=== PATIENT | male | born 1950 | race Caucasian/White ===

== ENCOUNTER 2025-01-27 10:56 | Emergency (ER) | payer MEDICARE, SELFPAY ==
--- OUTSIDE RECORDS SUMMARY | 2025-01-12 16:42 | XMS_ITS | Encounter Summary ---
Author Organization [facility] [employer] [facility] tem Address [id number] [address] [place] [address] Care Team Providers Care Jack Tamp Operator Name Role Phone No Pcp, No Pcp Primary Care Provider Unavailabl e Reason for Visit * Reason Comments Fall Pt fell this morning around 11, pt couldn't get up and neighbors heard him banging and called squad * Auth/Cert Specialty Diagnoses / Procedures Referred By Contac t Referred To Contact Diagnoses Tachycardia Atrial fibrillation with rapid ventricular response (CMS-HCC) [facility] - Emergency [address] [place] [address] Phone: tel: fax: Referral ID Status Reason Start Date Expiration Date Visits Re quested Visits Authorized [id number] 1 1 Encounter Details Date Type Department Care Team (Latest Contact Info) Description 01/12/2025 4:42 PM EDT - 01/14/2025 1:59 PM EDT Hospital Encounter [facility] - Acute Care [address] [place] [id number] Aleks He MD [address] [place] [address] Ralph Tamayo MD [address], [address] [address] Atrial fibrillation with rapid ventricular response (CMS-HCC) (Primary Dx); Non-traumatic rhabdomyolysis; Contusion of face, initial encounter; Leukocytosis, unspecified type Discharge Disposition: Another Hospital Social History Tobacco Use Types Packs/Day Years Used Date Smoking Tobacco: Never Smokeless Tobacco: Never Alcohol Use Standard Drinks/Week Comments No 0 (1 standard drink = 0.6 oz pur e alcohol) [facility] Utilities Answer Date Recorded In the past 12 months has th e electric, gas, oil, or water company threatened to shut off services in your home? Patient unable to answer 01/14/2025 PRAPARE - Transportation Answer Date Re corded In the past 12 months, has l ack of transportation kept you from medical appointments or from getting medications? Patient unable to answer 01/14/2025 In the past 12 months, has l ack of transportation kept you from meetings, work, or from getting things needed for daily living? Patient unable to answer 01/14/2025 Housing Instability Answer Date Recorde d Are you worried or concerned that in the next two months you may not have stable housing that you own, rent or stay in as a part of a household? Patient unable to answer 01/14/2025 Childcare Answer Date Recorded Childcare Unknown 11/03/2018 Employment Answer Date Recorded Employment Unknown 11/03/2018 Hunger Screening Answer Date Recorded Within the past 12 months we worried whether our food would run out before we got money to buy more. Patient unable to answer 01/15/2025 Within the past 12 months th e food we bought just didn't last and we didn't have money to get more. Patient unable to answer 01/15/2025 Purpose - Life Answer Date Recorded Purpose and direction in life Unknown Sex and Gender Information Value Date Recorded Sex Assigned at Not on file Legal Sex Male 11:30 AM EDT Gender Identity Not on file Sexual Orientation Not on file documented as of this encounter Last Filed Vital Signs Vital Sign Reading Time Taken Comments Blood Pressure 101/54 01/14/2025 7:10 AM EDT Pulse 87 01/14/2025 1:59 PM EDT Temperature 36.1 C (97 F) 01/14/2025 12:58 PM EDT Respiratory Rate 18 01/14/2025 1:59 PM EDT Oxygen Saturation 96% 01/14/2025 1:59 PM EDT Inhaled Oxygen Concentration - - Weight 83.2 kg (183 lb 6.8 oz) 01/14/2025 5:13 A M EDT Height 177.8 cm (5' 10 ) 01/13/2025 5:00 AM EDT Body Mass Index 26.32 01/13/2025 5:00 AM EDT documented in this encounter Discharge Summaries * Ralph Tamayo MD - 01/14/2025 12:25 PM EDT Images from the original note were not included. [facility] - AC[facility]ARE [address] [facility] [id number] Hospital Medicine Discharge Summary Patient: Paul Guerrero Date of : 1950 Room: [facility] Encounter date: 01/14/25 Hospital Day: 3 DATE OF ADMISSION: 01/12/2025 DATE OF DISCHARGE:01/14/2025 DISCHARGE DIAGNOSES Principal Problem: Atrial fibrillation with rapid ventricular response (CMS-HCC) Active Problems: Stroke (CMS-HCC) Cerebral infarction ([facility]-HCC) Cardiomyopathy, nonischemic ([facility] CONSULTANTS General surgery PCP: NO PCP, NO PCP PROCEDURES none HOSPITAL COURSE SUMMARY Paul Guerrero is a 74 y.o. male who presents following a fall. Pt noted he had recently been sick and feeling fatigued and weak for 2 days. When he got out of bed he said he had a hard time walking and fell. Stated he hurt his knees and his face. Pt has history of a.fib, CHF, CVA. CT brain- negative. CXR negative. EKG- a.fib with rvr. Cardiology consulted. Started on cardizem gtt. Labwork showing- wbc 22.7, ddimer 259, creatinine 1.97, BUN 41, AST, 105, ALT 43, bnp 352, CPK 3,798, troponin 39, 41. Lactate 2.4. Admitted for a.fib with rvr. Atrial fibrillation with RVR Cardiomyopathy, nonischemic Hx stroke EKG- showing rate of 202 rated improved to 90s currently Started on cardizem gtt- wean as able- off now Lopressor stopped- on levo currently Cardiology following TSH -WNL Echo CXR negative On eliquis -heldsurgery Leukocytosis Concern for sepsis Check UA CXR negative Procal 5.1 Downtrending Rocephin 2g daily -changed to zosyn Repeat BC Lactate 2.8 Fall Traumatic Rhabdomyolysis CK 3,798>>2,276 Myoglobin 2,[address] brain negative Scrotal swelling General surgery consulted Likely hernia, per surgery will need cardiac clearance prior to surgery US ordered -No testicular mass or torsion, limited assessment right testicle due to overlapping structures. Scrotal wall edema and possible herniated bowel into the scrotal sac, consider CT pelvis. Pt was taken to OR emergently per Dr. Ramirez for open left inguinal hernia repair, bowel/colon resection, colostomy, mesh repair - post op pt was vented, did have traumatic catheter insertion. Will need urology. Transfer to [facility] for urology and higher level of care. On levo /propofol currently Check lactate, cbc/cmp now Transaminitis Stable, monitor daily Improving Acute kidney injury Creatinine 1.97>>1.77>>1.8 IVF Likely prerenal d/t hypotension Check UA Renal US unremarkable Hypokalemia Hypomagnesemia Replace per sliding scale Discharge Day Progress Note 01/14/25 No overnight events and remains hemodynamically stable. Review of Systems Reason unable to perform ROS: sedated. BP 101/54 Pulse 92 Temp 36.8 ??C (98.2 ??F) (Oral) Resp (!) 8 Ht 177.8 cm (5' 10 ) Wt 83.2 kg (183 lb 6.8 oz) SpO2 98% BMI 26.32 kg/m?? Temp: [36.5 ??C (97.7 ??F)-38.2 ??C (100.8 ??F)] 36.8 ??C (98.2 ??F) Pulse: [87-141] 92 Resp: [8-30] 8 BP: (92-116)/(50-63) 101/54 FiO2 (%): [21 %-28 %] 28 % SpO2: [84 %-98 %] 98 % O2 Device: Ambu O2 Flow Rate (L/min): [0 L/min-3 L/min] 2 L/min Intake/Output Summary (Last 24 hours) at 01/14/2025 1225 Last data filed at 01/14/2025 1115 Gross per 24 hour Intake 4845.9 ml Output 377 ml Net 4468.9 ml Physical Exam Vitals and nursing note reviewed. Constitutional: General: He is not in acute distress. Appearance: He is well-developed. HENT: Head: Normocephalic. Right Ear: External ear normal. Left Ear: External ear normal. Nose: Nose normal. Eyes: Conjunctiva/sclera: Conjunctivae normal. Pupils: Pupils are equal, round, and reactive to light. Cardiovascular: Rate and Rhythm: Normal rate and regular rhythm. Heart sounds: Normal heart sounds. No murmur heard. Pulmonary: Effort: Pulmonary effort is normal. Breath sounds: Normal breath sounds. No wheezing. Comments: Vented Abdominal: General: Bowel sounds are normal. Palpations: Abdomen is soft. There is no mass. Tenderness: There is abdominal tenderness. Comments: Post op - incision , dressing in place , ostomy Genitourinary: Comments: [place] Musculoskeletal: General: Normal range of motion. Cervical back: Normal range of motion. Lymphadenopathy: Cervical: No cervical adenopathy. Skin: General: Skin is warm and dry. Findings: No rash. Neurological: Mental Status: He is alert. Cranial Nerves: No cranial nerve deficit. Coordination: Coordination normal. Psychiatric: Behavior: Behavior normal. Code Status: No Order Labs Recent Results (from the past 48 hours) CBC auto differential Collection Time: 01/12/25 5:11 PM Result Value Ref Range WBC 22.7 (H) 4 - 11 x10E9/L RBC Count 4.72 4.1 - 5.7 X10E12/L Hemoglobin 14.6 13 - 17 g/dL Hematocrit 43.9 39 - 50 % MCV 93 80 - 100 fL MCH 31.0 27 - 34 pg MCHC 33.3 32 - 36 g/dL RDW 13.9 11.5 - 15 % Platelet Count 208 150 - 450 X10E9/L MPV 11.3 7 - 12 fL Bands % 2 % Neutrophils % 90 % Lymphocytes % 2 % Monocytes % 6 % Neutrophils Absolute (M) 20.8 (H) 1.5 - 6.6 10*3/uL Lymphocytes Absolute 0.5 (L) 1.0 - 3.5 10*3/uL Monocytes Absolute 1.4 (H) 0.0 - 0.9 10*3/uL RBC Morphology Normal Differential Type MANUAL DIFFERENTIAL Protime & INR Collection Time: 01/12/25 5:11 PM Result Value Ref Range PROTIME 24.7 (H) 9.8 - 13.2 sec INR 2.1 (H) 0.9 - 1.2 APTT Collection Time: 01/12/25 5:11 PM Result Value Ref Range APTT 34 26 - 37 sec B-type natriuretic peptide Collection Time: 01/12/25 5:11 PM Result Value Ref Range BNP 352 (H) <=100 pg/mL Comprehensive metabolic panel Collection Time: 01/12/25 5:11 PM Result Value Ref Range SODIUM 134 134 - 146 mmol/L POTASSIUM 3.5 3.5 - 5.0 mmol/L CHLORIDE 95 (L) 98 - 109 mmol/L CARBON DIOXIDE 25 22 - 32 mmol/L ANION GAP 14 5 - 15 mmol/L BLOOD UREA NITROGEN 41 (H) 5 - 27 mg/dL CREATININE 1.97 (H) 0.70 - 1.20 mg/dL GLUCOSE 125 (H) 65 - 99 mg/dL CALCIUM 9.0 8.5 - 10.5 mg/dL TOTAL PROTEIN 7.5 6.0 - 8.0 g/dL ALBUMIN 3.5 3.2 - 5.3 g/dL ALKALINE PHOSPHATASE 78 39 - 130 U/L AST 105 (H) <=41 U/L ALT 43 (H) <=40 U/L BILIRUBIN,TOTAL 2.2 (H) 0.3 - 1.2 mg/dL EGFR Non-Race Dependent 35 (L) >=60 ml/min/1.73sq.m D-Dimer Collection Time: 01/12/25 5:11 PM Result Value Ref Range D DIMER 259 (H) 1 - 255 ug/mL Magnesium Collection Time: 01/12/25 5:11 PM Result Value Ref Range MAGNESIUM 1.8 1.8 - 2.6 mg/dL Troponin I, High Sensitivity Collection Time: 01/12/25 5:11 PM Narrative The following orders were created for panel order Troponin I, High Sensitivity. Procedure Abnormality Status --------- ------ Troponin I, High Sensiti...[[id number]] Abnormal Final result Troponin I, High Sensiti...[[id number]] Abnormal Final result Please view results for these tests on the individual orders. CK Total Collection Time: 01/12/25 5:11 PM Result Value Ref Range CPK 3,798 (H) 24 - 195 U/L Troponin I, High Sensitivity 0 Hour Collection Time: 01/12/25 5:11 PM Result Value Ref Range TROPONIN I, HIGH SENSITIVITY 39 (H) <21 ng/L Procalcitonin Collection Time: 01/12/25 5:11 PM Result Value Ref Range PROCALCITONIN 5.10 (H) <0.05 ng/mL Narrative <0.50 ng/mL - Low risk of severe sepsis and/or septic shock. <2.00 ng/mL - Recommend retesting within 6-24 hours. >2.00 ng/mL - High risk of sepsis and/or septic shock. SARS/FLU A+B/RSV by NAAT/Molecular (M4RT Collection Tube) Collection Time: 01/12/25 5:12 PM Result Value Ref Range FLU A PCR Negative Negative FLU B PCR Negative Negative RSV BY PCR Negative Negative SARS COV 2 BY PCR Not Detected Not Detected Narrative The Xpert Xpress SARS-CoV-2/Flu/RSV Plus test is a rapid, multiplexed real-time RT-PCR test intended for the simultaneous qualitative detection and differentiation of SARS-CoV-2, influenza A, influenza B and respiratory syncytial virus (RSV) viral RNA from individuals suspected of respiratory viral infection consistent with COVID-19 by Their healthcare provider. This test has not been validated in asymptomatic patients. The Xpert Xpress SARS-CoV-2 test is intended for use by qualified and trained operators who are performing tests using either [employer] DX or [employer] Stats systems and islimited to laboratories that meet the CLIA requirements to perform high and moderate complexity tests. The Xpert Xpress SARS-CoV-2/Flu/RSV Plus is only for use under the Food and Drug Administration's Emergency Use Authorization. Results are for the simultaneous detection and differentiation of SARS-CoV-2, influenza A, influenza B and RSV nucleic acids in clinical specimens. SARS-CoV-2, influenzaA, influenza B and RSV RNA identified by this test are generally detectable in upper respiratory samples during the acute phase of infection. Positive results are Indicative of the presence of the identified virus, but do not rule out bacterial infection or co-infection with other pathogens not detected by this test. Clinical correlation with patient history and other diagnostic information is necessary to determine patient infection status. The agent detected may not be the definite cause of disease. Negative results do not preclude SARS-CoV-2, influenza A, influenza B and RSV infection and should not be used as the sole basis for treatment or other patient management decisions. Negative results must be combined with clinical observations, patient history and epidemiological information.An Invalid result may occur with specimen-associated inhibition unable to be resolved with specimenrepeat. Fact Sheet for Healthcare Providers: https://www.fda.gov/media/438833/download Fact Sheet for Patients: https://www.fda.gov/media/632493/download Lactate w/ Reflex Collection Time: 01/12/25 5:23 PM Result Value Ref Range LACTATE W/REFLEX 2.4 (H) 0.4 - 2.0 mmol/L Blood culture Collection Time: 01/12/25 5:23 PM Specimen: Blood, Venous Result Value Ref Range CULTURE RESULTS NO GROWTH AT 36 HOURS Blood culture Collection Time: 01/12/25 6:29 PM Specimen: Blood, Venous Result Value Ref Range CULTURE RESULTS NO GROWTH AT 36 HOURS Troponin I, High Sensitivity 1 Hour Collection Time: 01/12/25 6:29 PM Result Value Ref Range TROPONIN I, HIGH SENSITIVITY 41 (H) <21 ng/L Narrative Elevations of hs-Troponin may be due to causes other than myocardial ischemia. Recommend serial hs-Troponin testing be performed. For the initial evaluation and management of chest pain patients, refer to the algorithms linked below. Emergency Patient: [email or web address] [email or web address]: [email or web address] Lactate Collection Time: 01/12/25 8:50 PM Result Value Ref Range LACTATE 1.7 0.4 - 2.0 mmol/L Comprehensive metabolic panel Collection Time: 01/13/25 4:37 AM Result Value Ref Range SODIUM 135 134 - 146 mmol/L POTASSIUM 3.6 3.5 - 5.0 mmol/L CHLORIDE 99 98 - 109 mmol/L CARBON DIOXIDE 24 22 - 32 mmol/L ANION GAP 12 5 - 15 mmol/L BLOOD UREA NITROGEN 40 (H) 5 - 27 mg/dL CREATININE 1.77 (H) 0.70 - 1.20 mg/dL GLUCOSE 129 (H) 65 - 99 mg/dL CALCIUM 8.1 (L) 8.5 - 10.5 mg/dL TOTAL PROTEIN 6.2 6.0 - 8.0 g/dL ALBUMIN 2.8 (L) 3.2 - 5.3 g/dL ALKALINE PHOSPHATASE 66 39 - 130 U/L AST 110 (H) <=41 U/L ALT 46 (H) <=40 U/L BILIRUBIN,TOTAL 1.5 (H) 0.3 - 1.2 mg/dL EGFR Non-Race Dependent 40 (L) >=60 ml/min/1.73sq.m Magnesium Collection Time: 01/13/25 4:37 AM Result Value Ref Range MAGNESIUM 1.6 (L) 1.8 - 2.6 mg/dL CBC auto differential Collection Time: 01/13/25 4:37 AM Result Value Ref Range WBC 17.3 (H) 4 - 11 x10E9/L RBC Count 3.99 (L) 4.1 - 5.7 X10E12/L Hemoglobin 12.5 (L) 13 - 17 g/dL Hematocrit 37.0 (L) 39 - 50 % MCV 93 80 - 100 fL MCH 31.4 27 - 34 pg MCHC 33.9 32 - 36 g/dL RDW 13.6 11.5 - 15 % Platelet Count 211 150 - 450 X10E9/L MPV 10.3 7 - 12 fL Neutrophils % 91.3 % Lymphocytes % 1.9 % Monocytes % 6.5 % Eosinophils % 0.0 % Basophils % 0.3 % Neutrophils Absolute (A) 15.8 (H) 1.5 - 6.6 10*3/uL Lymphocytes Absolute 0.3 (L) 1.0 - 3.5 10*3/uL Monocytes Absolute 1.1 (H) 0.0 - 0.9 10*3/uL Eosinophils Absolute 0.0 0.0 - 0.4 10*3/uL Basophils Absolute 0.1 0.0 - 0.2 10*3/uL Differential Type AUTOMATED DIFFERENTIAL CK Total Collection Time: 01/13/25 4:37 AM Result Value Ref Range CPK 2,276 (H) 24 - 195 U/L Myoglobin, serum Collection Time: 01/13/25 4:37 AM Result Value Ref Range SERUM MYOGLOBIN 2,139.7 (H) 17.4 - 105.7 ng/mL Thyroid profile includes TSH FT4 Collection Time: 01/13/25 4:37 AM Result Value Ref Range FREE T4 1.51 0.61 - 1.60 ng/dL TSH 0.59 0.49 - 4.67 uIU/mL Extra Urine Collection Time: 01/13/25 6:55 AM Specimen: Urine, Clean Catch Midstream Result Value Ref Range Extra Tube Auto Resulted Extra Urine Culture Collection Time: 01/13/25 6:55 AM Specimen: Urine, Clean Catch Midstream Result Value Ref Range Extra Tube Auto Resulted Extra Urine [place] Collection Time: 01/13/25 6:55 AM Specimen: Urine, Clean Catch Midstream Result Value Ref Range Extra Tube Auto Resulted Urinalysis Collection Time: 01/13/25 6:55 AM Specimen: Urine, Clean Catch Midstream Result Value Ref Range COLOR Yellow Yellow TURBIDITY Cloudy (A) Clear SPECIFIC GRAVITY 1.025 1.003 - 1.035 NITRITE Negative Negative PH,URINE 6.0 5.0 - 8.5 LEUKOCYTE ESTERASE Negative Negative PROTEIN 30 mg/dL (A) Negative KETONES (URINE) Negative Negative UROBILINOGEN 0.2 eu/dL 0.2 eu/dL, 1.0 eu/dL BILIRUBIN (URINE) Negative Negative BLOOD/HGB Large (A) Negative AMORPHOUS SEDIMENT Present (A) None COARSE GRANULAR CAST 2 (H) <=0 MUCOUS Present (A) None R.B.CELLS 3 0 - 5 W.B.CELLS 4 0 - 5 GLUCOSE (URINE) Negative Negative, 250 mg/dL Extra Tubes Collection Time: 01/13/25 1:31 PM Narrative The following orders were created for panel order Extra Tubes. Procedure Abnormality Status --------- ------ SST TOP[[id number]] Final result Please view results for these tests on the individual orders. SST TOP Collection Time: 01/13/25 1:31 PM Result Value Ref Range Extra Tube Auto Resulted Potassium Collection Time: 01/13/25 1:32 PM Result Value Ref Range POTASSIUM 3.9 3.5 - 5.0 mmol/L Magnesium Collection Time: 01/13/25 1:32 PM Result Value Ref Range MAGNESIUM 3.0 (H) 1.8 - 2.6 mg/dL Lactate w/ Reflex Collection Time: 01/13/25 1:32 PM Result Value Ref Range LACTATE W/REFLEX 2.8 (H) 0.4 - 2.0 mmol/L Lactate Collection Time: 01/13/25 5:02 PM Result Value Ref Range LACTATE 1.7 0.4 - 2.0 mmol/L Comprehensive metabolic panel Collection Time: 01/14/25 4:25 AM Result Value Ref Range SODIUM 132 (L) 134 - 146 mmol/L POTASSIUM 4.5 3.5 - 5.0 mmol/L CHLORIDE 96 (L) 98 - 109 mmol/L CARBON DIOXIDE 23 22 - 32 mmol/L ANION GAP 13 5 - 15 mmol/L BLOOD UREA NITROGEN 43 (H) 5 - 27 mg/dL CREATININE 1.80 (H) 0.70 - 1.20 mg/dL GLUCOSE 115 (H) 65 - 99 mg/dL CALCIUM 8.8 8.5 - 10.5 mg/dL TOTAL PROTEIN 6.9 6.0 - 8.0 g/dL ALBUMIN 2.9 (L) 3.2 - 5.3 g/dL ALKALINE PHOSPHATASE 84 39 - 130 U/L AST 88 (H) <=41 U/L ALT 59 (H) <=40 U/L BILIRUBIN,TOTAL 0.7 0.3 - 1.2 mg/dL EGFR Non-Race Dependent 39 (L) >=60 ml/min/1.73sq.m Magnesium Collection Time: 01/14/25 4:25 AM Result Value Ref Range MAGNESIUM 2.6 1.8 - 2.6 mg/dL CBC auto differential Collection Time: 01/14/25 4:25 AM Result Value Ref Range WBC 32.8 (H) 4 - 11 x10E9/L RBC Count 4.23 4.1 - 5.7 X10E12/L Hemoglobin 13.1 13 - 17 g/dL Hematocrit 40.0 39 - 50 % MCV 95 80 - 100 fL MCH 30.9 27 - 34 pg MCHC 32.7 32 - 36 g/dL RDW 13.9 11.5 - 15 % Platelet Count 331 150 - 450 X10E9/L MPV 9.5 7 - 12 fL Bands % 14 % Neutrophils % 82 % Lymphocytes % 1 % Monocytes % 3 % Neutrophils Absolute (M) 31.5 (H) 1.5 - 6.6 10*3/uL Lymphocytes Absolute 0.3 (L) 1.0 - 3.5 10*3/uL Monocytes Absolute 1.0 (H) 0.0 - 0.9 10*3/uL RBC Morphology Reviewed Differential Type MANUAL DIFFERENTIAL Type and screen (Pre-op) Collection Time: 01/14/25 8:54 AM Result Value Ref Range ABO A RH Positive Antibody Screen Negative Blood Gas, Arterial Collection Time: 01/14/25 10:38 AM Result Value Ref Range Sample type ARTERIAL pH, Arterial 7.227 (L) 7.350 - 7.450 pCO2, Arterial 58.4 (H) 35.0 - 45.0 mmHg PO2, Arterial 469 (H) 80 - 100 mmHg Base, Deficit -4.0 (L) 0.0 - 2.0 mmol/L HCO3, Arterial 24.3 22.0 - 26.0 mmol/L %O2 Saturation, Arterial 100.0 >90.0 % Temo's test N/A SPO2 469 % Sample site N/A Source Of Oxygen Vent Radiology Echo complete W/O contrast Result Date: 01/14/2025 Narrative: Left Ventricle: Left ventricle appears normal in size. There is mild asymmetric increased wall thickness/hypertrophy. Systolic function is normal with an ejection fraction of 55-60%. The quantitative EF by 2D Mitchell biplane is 61%. No obvious regional wall motion abnormalities. Unable to assess diastolic function due to atrial fibrillation/flutter. Right Ventricle: Right ventricular size appears normal. The right ventricular basal diameter is 36.0 mm. Normal systolic excursion velocity by TDI (>9.5 cm/s). Tricuspid Valve: There is moderate regurgitation. There is no evidence oftricuspid valve stenosis. There is moderate pulmonary hypertension. Mitral Valve: The leaflets are moderately thickened. There is mild annular calcification. There is moderate regurgitation with a centrally directed jet. There is no evidence of mitral valve stenosis. Ultrasound retroperitoneal complete Result Date: 01/13/2025 Narrative: US RETROPERITONEAL COMPLETE HISTORY: Acute kidney injury COMPARISON: 09/05/2012 TECHNIQUE: Grayscale and color Doppler sonographic images of the urinary bladder and bilateral kidneys. FINDINGS: Right kidney: * 10.7 x 5.2 x 5.1 cm * Cortex: 0.9 cm. Normal echogenicity. * No hydronephrosis,mass, or calculi. Left kidney: * 9.3 x 5.4 x 5.0 cm * Cortex: 0.8 cm. Normal echogenicity. * No hydronephrosis, mass, or calculi. The urinary bladder is decompressed and incompletely evaluated. No prostatomegaly. IMPRESSION: Unremarkable ultrasound of the kidneys and urinary bladder. [id number] Finalized by Russell Brantley MD on 01/13/2025 3:08 PM Ultrasound scrotum Result Date: 01/13/2025 Narrative: CLINICAL INFORMATION: testicular swelling. COMPARISON: None. PROCEDURE: Routine testicular ultrasound was obtained utilizing real-time grayscale and color-flow Doppler imaging. Duplex spectral Doppler waveforms obtained and reviewed. FINDINGS: Scrotal wall edema. The right testicle measures 3.2 x 2.7 x 1.3 cm. The left testicle measures 3.9 x 2.1 x 3.7 cm. No definite testicular mass. Tubular ectasia right rete testes. Small left hydrocele. Duplex spectral Doppler documents arterial and venous spectral waveforms within the major arterial inflow and venous outflow of both testicles.No definite torsion. There appears to be some bowel content in the scrotum. IMPRESSION: * No testicu lar mass or torsion, limited assessment right testicle due to overlapping structures. * Scrotal wall edema and possible herniated bowel into the scrotal sac, consider CT pelvis. Finalized by Jeb Luciano MD on 01/13/2025 12:45 PM X-ray chest 1 view Result Date: 01/13/2025 Narrative: Portable single view chest dated 01/13/2025 at 11:34 AM INDICATION: Shortness of breath. FINDINGS: Comparison is 01/12/2025. Compromised due to portable technique. Emphysematous changes. Nodule in the left costophrenic angle is unchanged from multiple prior examination consistent with benign etiology. No edema or effusion. No pneumothorax. IMPRESSION: 1. Given the limitations of portabletechnique, no acute cardiopulmonary abnormality seen. 2. If symptoms persist consider PA and lateral chest in the radiology department. Finalized by Jose Luis Asif MD on 511:48 AM X-ray chest 1 view Result Date: 01/12/2025 Narrative: Portable chest: HISTORY: Cough. Single view of the chest was obtained. Cardiac and mediastinal contours are within normal limits. Lungs are clear. There is no vascular congestion, effusion, or pneumothorax. Osseous structures appear intact. IMPRESSION: No acute findings. Finalized by Bryon Boucher MD on 01/12/2025 7:[address] brain without contrast Result Date: 01/12/2025 Narrative: CT BRAIN WO CONT: 01/12/2025 6:02 PM Clinical: Head injury. On anticoagulation. EXAM: NONCONTRAST BRAIN CT Comparison: CT brain 04/16/2019 Procedure: Multi-detector CT performed through thebrain without IV contrast. Automatic exposure control utilized. All CT scans at this facility use dose modulation, iterative reconstruction, and/or weight based dosing when appropriate to reduce radiation dose to as low as reasonably achievable. Findings: There is no intracranial hemorrhage, extra-axial fluid collection, mass effect, midline shift, or hydrocephalus. Patent basal cisterns. MRI is more sensitive for evaluation of acute ischemia and subtle parenchymal abnormalities. IMPRESSION: * No acute intracranial abnormality by CT. Stable exam. Finalized by Pasha Young MD on 01/12/2025 6:08 PM DISCHARGE INSTRUCTION Disposition: Another Hospital Condition: Serious Activity: activity as tolerated Diet: Adult nutrition supplements Adult diet Regular Texture; Cardiac Discharge Medications: Medication List ASK your doctor about these medications Instructions Last Dose Given Next Dose Due apixaban 5 mg tablet Commonly known as: ELIQUIS Take 1 tablet (5 mg total) by mouth in the morning and 1 tablet (5 mg total) before bedtime. metoprolol tartrate 50 mg tablet Commonly known as: LOPRESSOR Take 1 tablet (50 mg total) by mouth in the morning and 1 tablet (50 mg total) before bedtime. >30 minutes were spent on discharging this patient. PAT Blandon 01/14/2025 12:25 PM [facility] 7AM-7PM & 7PM-7AM: EpicChat or page through On-Call Finder. PAT Blandon 01/14/25 1253 Patient seen postop. Intubated and on vent. On levophed and iv fluids. Bp stable. Surgical history reviewed with gen surg. On iv rocephin and flagyl. Repeat blood c/s and labs ordered. Pulmonology consulted for vent management Traumatic marinelli insertion attempted . Gen surgery has already discussed with urology. No services available here . Patient transferred to [facility] icu Physician Attestation I, RALPH TAMAYO MD, personally performed a face to face diagnostic evaluation on this patient. I have reviewed the note authored by the advance practice provider including history, review of systems,physical examination,medical decision making and agree with the assessment and plan as written. I have seen and evaluated the patient, I have repeated the wood portions of the physical exam and concur with the CESARIO findings. I have reviewed all laboratory findings and imaging reports/films. I agree with the plan as noted. documented in this encounter Discharge Instructions * Appointments* Kumar Almazan - 01/13/2025 3:52 PM EDT YOUR SCHEDULED APPOINTMENTS Please make note of this in your schedule as to not miss or call to reschedule. Thank you! [facility] [address], [place] [address] P# Monday February 10, 2025 @ 9:45am Pt. should bring the following to appointment; Discharge paperwork Picture ID, Insurance card, co-pay, and all current medications in their bottles. Please provide a 24 hour notice for cancellation. Failure to do so will result in the practice declining to see pt. in the future. If you have insurance copay you must bring with you to the appointment. Please arrive about 15 minutes prior to appointment for check-in/registration. For NEW PATIENT APPOINTMENTS, please arrive 30 minutes early to complete new patient paperwork. For NEW patients, MD will not prescribe fdc pain medication. documented in this encounter Medications at Time of Discharge apixaban (ELIQUIS) 5 mg tablet Take 1 tablet (5 mg total) by mouth in the morning and 1 tablet (5 mg total) before bedtime. 180 tablet 2 06/03/2024 dilTIAZem CD (CARDIZEM CD) 180 mg 24 hr capsule Take 1 capsule (180 mg total) by mouth in the morning. 01/23/2025 metoprolol tartrate (LOPRESSOR) 50 mg tablet Take 1 tablet (50 mg total) by mouth in the morning and 1 tablet (50 mg total) before bedtime. 180 tablet 3 07/16/2024 micafungin 100 mg in sodium chloride 0.9 % 100 mL IVPB W/ADAPTER Infuse 100 mg into a venous catheter daily for 25 days. 1 each 01/22/2025 5 naloxone (NARCAN) 4 mg/actuation spray,non-aeroso l nasal spray Administer 1 spray (4 mg total) into alternating nostrils as needed for opioid reversal. 01/22/2025 piperacillin-hayder obactam 3.375 g in sodium chloride 0.9 % 50 mL IVPB W/ADAPTER Infuse 3.375 g into a venous catheter every 8 (eight) hours for 20 days. 1 each 01/21/2025 5 oxyCODONE (ROXICODONE) 10 MG tablet immediate release tabletIndication s:S/P partial resection of colon Take 1 tablet (10 mg total) by mouth every 4 (four) hours as needed for pain for up to 3 days. Max Daily Amount: 60 mg 3 tablet 01/22/2025 5 oxyCODONE (ROXICODONE) 10 MG tablet immediate release tabletIndication s:S/P partial resection of colon Take 1 tablet (10 mg total) by mouth every 4 (four) hours as needed for pain for up to 3 days. Max Daily Amount: 60 mg 3 tablet 01/22/2025 5 documented as of this encounter Progress Notes * Eleazar Meyer, [facility] - 01/14/2025 12:30 PM EDT [facility] Department of Pharmacy Pharmacist to Physician Communication The dose of piperacillin/tazobactam for intra-abdominal infection has been changed to 4.5g IV x 1 infused over 30 minutes followed by 3.375g IV every 8 hours infused over 4 hours starting 4 hours after the loading dose per the [facility] approved renal dosing guidelines, based on an estimated creatinine clearance is 37.7 mL/min (A) (by C-G formula based on SCr of 1.8 mg/dL (H)). Thank you, Eleazar Meyer RPH * Delmar Ramirez MD - 01/14/2025 8:44 AM EDT Images from the original note were not included. Subjective: Paul Guerrero is a 74 y.o. male No acute events overnight. Heart rate this morning however is in the 130s 140s. Remains in atrial fibrillation. Left groin and scrotum continues to be swollen. Denies pain unless it is touched. Has tenderness. WBC 42682. Low-grade fever yesterday. Denies abdominal pain Objective: Vitals: 01/14/25 0736 BP: Pulse: (!) 141 Resp: 22 Temp: SpO2: 97% Temp: [36.5 ??C (97.7 ??F)-38.2 ??C (100.8 ??F)] 36.8 ??C (98.2 ??F) Pulse: [87-153] 141 Resp: [21-33] 22 BP: (92-128)/(50-67) 101/54 FiO2 (%): [21 %-28 %] 28 % SpO2: [84 %-98 %] 97 % O2 Device: Nasal cannula O2 Flow Rate (L/min): [0 L/min-3 L/min] 2 L/min No Known Allergies Intake/Output last 3 shifts: I/O last 3 completed shifts: In: 5717.4 [P.O.:120; I.V.:2890.2; IV Piggyback:2707.1] Out: 1082 [Urine:1082] Intake/Output this shift: No intake/output data recorded. Dietary Orders (From admission, onward) Start Ordered 01/14/25 0614 Adult diet Regular Texture; Cardiac Diet effective now Question Answer Comment Diet Type: Regular Texture Other Modifiers: Cardiac 01/14/25 0613 01/13/25 1305 Adult nutrition supplements Continuous Question Answer Comment Diet Type or Consistency: Regular Texture Select Supplement: Standard House Supplement 4 oz Supplement Frequency: BID 01/13/25 1304 Physical Exam General Appearance: Awake, Alert & Oriented x3, No Acute Distress. Neck: Trachea Midline. Pulmonary: Unlabored breathing. Cardiac: Irregular Abdomen: Soft, non-tender, non-distended. Large left inguinal scrotal hernia, overlying skin edematous and discolored Extremity: No edema Skin: Dry. Non-icteric. No Rash. Eyes: Pupils Equal and Round, Non-icteric Laboratory Data: Lab Results Component Value Date WBC 32.8 (H) 01/14/2025 HGB 13.1 01/14/2025 HCT 40.0 01/14/2025 MCV 95 01/14/2025 PLT 331 01/14/2025 Lab Results Component Value Date GLU 115 (H) 01/14/2025 CALCIUM 8.8 01/14/2025 K 4.5 01/14/2025 CO2 23 01/14/2025 CL 96 (L) 01/14/2025 BUN 43 (H) 01/14/2025 CREATININE 1.80 (H) 01/14/2025 No results found for: AMYLASE No results found for: LIPASE Lab Results Component Value Date ALT 59 (H) 01/14/2025 AST 88 (H) 01/14/2025 ALKPHOS 84 01/14/2025 Lab Results Component Value Date INR 2.1 (H) 01/12/2025 INR 1.1 07/18/2016 INR 1.2 06/01/2016 PROTIME 24.7 (H) 01/12/2025 PROTIME 12.7 (H) 07/18/2016 PROTIME 13.4 (H) 06/01/2016 cefTRIAXone (ROCEPHIN) IV, 2,000 mg, intravenous, Q24H ipratropium, 0.5 mg, nebulization, Q4H While awake levalbuterol, 1.25 mg, nebulization, Q4H While awake metoprolol tartrate, 50 mg, oral, BID metroNIDAZOLE, 500 mg, intravenous, Q12H acetaminophen alum-mag hydroxide-simeth dextrose dextrose 5 % in water dextrose 50 % in water (D50W) glucagon (human recombinant) HYDROcodone-acetaminophen magnesium sulfate magnesium sulfate ondansetron potassium chloride OR potassium chloride OR potassium chloride IV (Adult) sennosides-docusate sodium sodium chloride Assessment: Paul Guerrero is a 74 y.o. male with left inguinal hernia, incarcerated, containing bowel. Unable to be reduced. Today, WBC went up to 32,000, noted to have low-grade fever yesterday. This isconcerning for evolution, possible bowel strangulation Atrial fibrillation with RVR Acute kidney injury secondary to traumatic rhabdomyolysis versus sepsis Recent fall History of stroke On Eliquis, last dose was yesterday morning Plan: OR emergently for open left inguinal hernia repair, possible exploratory laparotomy, possible bowel/colon resection, possible colostomy, possible mesh repair Patient is at increased risk of perioperative complications as cardiopulmonary complication, bleeding complication. The reasons for surgery, alternatives to surgery, and natural history of the disease without surgery were addressed with the patient. We discussed the potential risks and benefits of the surgery. I gave ample opportunity for the patient to ask questions which I answered to their apparent satisfaction. He seemed to understand and provided consent. * Fernando Patterson RPH - 01/14/2025 6:31 AM EDT [facility] Department of Pharmacy Pharmacist to Physician Communication The dose of metronidazole for intra-abdominal infection has been changed to 500 mg IV every 12 hours per the [facility] approved medical supplies shortage bulletin. Thank you, Fernando Patterson RPH [id number] * Kaylie Bruner RCP - 01/13/2025 7:39 PM EDT 01/13/251937 Vital Signs Pulse (!) 127 Heart Rate Source Monitor Resp (!) 26 Patient Position Semi-fowlers Respiratory Assessment Assessment Type Post-treatment Level of Consciousness Alert Respiratory Pattern Shallow;Tachypneic Chest Assessment Chest expansion symmetrical Bilateral Breath Sounds Increased aeration;Expiratory wheezes;Inspiratory wheezes;Diminished Location Specific No Inhalation Therapy Device (Patient did not wish to take any more of the breathing treatment at this time due to c/o nausea from neb treatment) * Kaylie Bruner RCP - 01/13/2025 7:28 PM EDT 01/13/251925 Vital Signs Pulse 121 Heart Rate Source Monitor Resp (!) 26 SpO2 91 % O2 Device Nasal cannula O2 Flow Rate (L/min) 3 L/min Patient Position Semi-fowlers Respiratory Assessment Assessment Type Pre-treatment Level of Consciousness Alert Respiratory Pattern Shallow;Tachypneic Chest Assessment Chest expansion symmetrical Bilateral Breath Sounds Diminished R Breath Sounds Diminished L Breath Sounds Diminished Location Specific No Inhalation Therapy Delivery Source Oxygen Device Nebulizer Duration (Minutes) 15 Position Semi Meyer's * JARAD Cameron - 01/13/2025 12:46 PM EDT NUTRITION ADULT INITIAL EVALUATION NUTRITION ASSESSMENT Reason To Be Seen: Nutritional trigger for weight loss [facility] Occurrences: Pt admitted with recent fall Admit Diagnosis: Patient Active Problem List Diagnosis Contracture of finger joint Stroke ([facility]) Paroxysmal atrial fibrillation ([facility]) Bluish skin discoloration Diverticulosis of colon Gastritis and duodenitis GI bleed Mesenteric artery stenosis Cerebral infarction ([facility]) Cardiomyopathy, nonischemic (CMS-HCC) Atrial fibrillation with rapid ventricular response (CMS-HCC) Past Medical History: Past Medical History: Diagnosis Date Acute renal failure (ARF) occured at time of GI bleed Atrial fibrillation ([facility]) Bluish skin discoloration CHF (congestive heart failure) ([facility] 2012 initial EF 15 % // last ECHO 55 % Cholecystitis Contracture of finger joint Patient had an accident on a ladder causing deformity and this eventually developed into a contracture. Patient elected not to have surgery. 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 / [facility] / Dr Bruce/ CTA Occult blood in stools abn fit test Peptic ulceration GI bleed Pneumonia Respiratory failure ([facility]) occured at time of GI bleed Stroke ([facility]) 06/2016 rx with TPA Past Surgical History: Past Surgical History: Procedure Laterality Date CARDIAC CATHETERIZATION COLONOSCOPY diverticulosis / lg ingunial hernia ESOPHAGOGASTRODUODENOSCOPY severe errosis gastritis and duodenitis TONSILLECTOMY Diet History: nursing reports pt is consuming some liquids at this time Allergies: No Known Allergies Nutrition Focused Physical Findings-- No evidence of muscle wasting/malnutrition. Need more wt hx to evaluated for overall wt loss otherwise wt hx is stable Wt Readings from Last 10 Encounters: 01/13/25 81.5 kg (179 lb 10.8 oz) 05/19/24 80.5 kg (177 lb 6.4 oz) 04/22/23 79.4 kg (175 lb) 04/23/22 78.3 kg (172 lb 9.6 oz) 03/30/21 77.3 kg (170 lb 6.4 oz) 12/24/19 76.7 kg (169 lb) 04/24/19 75.8 kg (167 lb) 04/16/19 75.3 kg (166 lb) 11/24/18 75.8 kg (167 lb) 11/25/17 75 kg (165 lb 6.4 oz) As per nutrition flow sheet- Skin: Skin Color: Ecchymosis (01/13/25122) Skin Temp: Warm, Dry (01/13/25122) Wound: Gastrointestinal: Abdomen Assessment: Soft, Nondistended (01/12/251922) GI Symptoms: None (01/12/251922) Edema: Labs: Results from last 3 days Lab Units 01/13/25 0437 01/12/25 1711 SODIUM mmol/L 135 134 POTASSIUM mmol/L 3.6 3.5 CHLORIDE mmol/L 99 95* CO2 mmol/L 24 25 BUN mg/dL 40* 41* CREATININE mg/dL 1.77* 1.97* CALCIUM mg/dL 8.1* 9.0 ALBUMIN g/dL 2.8* 3.5 ALK PHOS U/L 66 78 ALT U/L 46* 43* AST U/L 110* 105* Results from last 7 days Lab Units 01/13/25 0437 01/12/25 1711 GLUCOSE mg/dL 129* 125* Results from last 3 days Lab Units 01/13/25 0437 01/12/25 1711 MAGNESIUM mg/dL 1.6* 1.8 No data from last 3 days. Results from last 3 days Lab Units 01/13/25 0437 01/12/25 1711 WBC x10E9/L 17.3* 22.7* HEMOGLOBIN g/dL 12.5* 14.6 HEMATOCRIT % 37.0* 43.9 PLATELETS X10E9/L 211 208 MCV fL 93 93 No results found for: [id number] No results found for: FOLATE Lab Results Component Value Date IRON 7 (L) 09/04/2012 TIBC 274 09/04/2012 Lab Results Component Value Date IRONSAT 3 (L) 09/04/2012 Lab Results Component Value Date HGBA1C 6.3 (H) 09/04/2012 Lab Results Component Value Date CHOL 93 (L) 05/12/2024 Lab Results Component Value Date HDL 40 05/12/2024 LDL 87 12/02/2014 No results found for: LIPIDPROF No results found for: VIDHYDROX Medications/ Parenteral: Medications Prior to Admission Medication Sig Dispense Refill Last Dose/Taking apixaban (ELIQUIS) 5 mg tablet Take 1 tablet (5 mg total) by mouth in the morning and 1 tablet (5 mg total) before bedtime. 180 tablet 2 01/11/2025 metoprolol tartrate (LOPRESSOR) 50 mg tablet Take 1 tablet (50 mg total) by mouth in the morning and 1 tablet (50 mg total) before bedtime. 180 tablet 3 01/11/2025 Current Facility-Administered Medications Medication Dose Route Frequency Provider Last Rate Last Admin acetaminophen (TYLENOL EXTRA STRENGTH) tablet 500 mg 500 mg oral Q6H PRN Abed Ramadan, DUMP TRUCK OPERATOR-EDI ARCHITECT 500mg at 01/13/25 0628 alum-mag hydroxide-simeth (MAALOX) 200-200-20 mg/5 mL suspension 30 mL 30 mL oral PCHSP AbFAITH-DYLAN cefTRIAXone (ROCEPHIN) IVPB 2000 mg/50 mL in iso-osmotic dextrose (40 mg/mL premix) 2,000 mg intravenous Q24H Abed FAITH espinosa-DYLAN dextrose (GLUTOSE) 40 % gel 15 g 15 g oral PRN AbFAITH-DYLAN dextrose 5 % (D5W) infusion 100 mL/hr intravenous Continuous PRN AbFAITH-DYLAN dextrose 50 % in water (D50W) 50% solution 25 mL 25 mL intravenous PRN AbPAT dilTIAZem (CARDIZEM) infusion 125 mg/125 mL in sodium chloride 0.7% (1 mg/mL premix) 5-15 mg/hr intravenous Continuous Ralph Tamayo MD 15 mL/hr at 01/13/25 0552 15 mg/hr at 01/13/25 0552 glucagon HCL injection 1 mg 1 mg intramuscular PRN PAT HYDROcodone-acetaminophen (NORCO) 5-325 mg per tablet 1 tablet 1 tablet oral Q6H PRN PAT Blandon 1 tablet at 01/13/25 1139 ipratropium (ATROVENT) 0.02 % nebulizer solution 0.5 mg 0.5 mg nebulization Q4H While awake PAT Blandon levalbuterol (XOPENEX) nebulizer solution 1.25 mg 1.25 mg nebulization Q4H While awake PAT Blandon magnesium sulfate IVPB 2000 mg/50 mL in iso-osmotic water (40 mg/mL premix) 2,000 mg intravenous PRN AbFAITH espinosa-DYLAN magnesium sulfate IVPB 4000 mg/100 mL in iso-osmotic water (40 mg/mL premix) 4,000 mg intravenous PRN AbFAITH espinosa-EDI ARCHITECT Stopped at 01/13/25 1038 metoprolol tartrate (LOPRESSOR) tablet 50 mg 50 mg oral BID PATRICK Blandon CNP 50 mg at 01/13/25 0928 ondansetron (PF) (ZOFRAN) injection 4 mg 4 mg intravenous Q4H PRN Abed Ramadan, DUMP TRUCK OPERATOR-EDI ARCHITECT potassium chloride (KLOR-CON M 20) CR tablet 30-40 mEq 30-40 mEq oral PRN Abed Ramadan, DUMP TRUCK OPERATOR-EDI ARCHITECT 30mEq at 01/13/25 0628 Or potassium chloride (KAYCIEL) 20 mEq/15 mL solution 30-40 mEq 30-40 mEq oral PRN Abed Ramadan, DUMP TRUCK OPERATOR-EDI ARCHITECT Or potassium chloride IVPB 10 mEq/100 mL in water (0.1 mEq/mL premix) 10 mEq intravenous PRN Abed Ramadan, DUMP TRUCK OPERATOR-EDI ARCHITECT sennosides-docusate sodium (SENOKOT-S) 8.6-50 mg 1 tablet 1 tablet oral Q12H PRN Abed Ramadan, DUMP TRUCK OPERATOR-EDI ARCHITECT sodium chloride 0.9 % flush 3 mL 3 mL intravenous PRN Aleks He MD sodium chloride 0.9 % infusion 75 mL/hr intravenous Continuous Abed Ramadan, DUMP TRUCK OPERATOR-EDI ARCHITECT 75 mL/hr at 01/13/25 0552 Rate Verify at 01/13/25 0552 Anthropometrics: Ht Readings from Last 1 Encounters: 01/13/25 177.8 cm (5' 10 ) Wt Readings from Last 10 Encounters: 01/13/25 81.5 kg (179 lb 10.8 oz) 05/19/24 80.5 kg (177 lb 6.4 oz) 04/22/23 79.4 kg (175 lb) 04/23/22 78.3 kg (172 lb 9.6 oz) 03/30/21 77.3 kg (170 lb 6.4 oz) 12/24/19 76.7 kg (169 lb) 04/24/19 75.8 kg (167 lb) 04/16/19 75.3 kg (166 lb) 11/24/18 75.8 kg (167 lb) 11/25/17 75 kg (165 lb 6.4 oz) [place] Body Weight: 75 kg Percent [place] Body Weight: 109 % Body Mass Index: Body mass index is 25.78 kg/m??. BMI Category: Pre-obese (25.00- 29.99) Diet/ Nutrition Order Review: Dietary Orders (From admission, onward) Start Ordered 01/12/252009 Adult diet Regular Texture; Cardiac Diet effective now Question Answer Comment Diet Type: Regular Texture Other Modifiers: Cardiac 01/12/252008 Diet Intakes: 75 % [] 75-100% [x] 50-75% [x] 25-50% [] <25% [] NPO [] Unable to assess Intake/ Output Last 24 hrs: Intake/Output Summary (Last 24 hours) at 01/13/2025 1247 Last data filed at 01/13/2025 1121 Gross per 24 hour Intake 3371.46 ml Output 643 ml Net 2728.46 ml Oral Supplemental Intake/ Acceptance: just started [] 75-100% [] 50-75% [] 25-50% [] <25% [] NPO [] Unable to assess Malnutrition Status: Malnutrition Present: No NUTRITION DIAGNOSIS: No Diagnosis: No nutrition diagnosis at this time (NO 1.1) NUTRITION INTERVENTIONS: Meals & snacks: encourage meals and snacks Supplements (medical food, vitamin or mineral): will send BID ensure HP will providee 175 kcal/10 gprotein per serving. GOALS: Patient to meet calorie and protein needs NUTRITION MONITORING AND EVALUATION: Will monitor PO intakes,, Weights, Nutrition Related Labs, POC& Follow. [x] Progressing toward goal [] Not progressing [] Progress toward goal declining [] Goal achieved Viridiana Wiley RD.,LD. Clinical Dietitian [facility] [phone] 01/13/25 documented in this encounter H&P Notes * Ralph Tamayo MD - 01/13/2025 8:54 AM EDT Images from the original note were not included. [facility] [address] [id number] Hospital Medicine History & Physical Patient: Paul Guerrero Date of : 1950 Room: [facility] [place] PCP: NO PCP, NO PCP Admission date: 01/12/2025 4:42 PM Encounter date: 01/13/25 Hospital Day: 2 SUBJECTIVE Paul Guerrero is a 74 y.o. male who presents following a fall. Pt noted he had recently been sick and feeling fatigued and weak for 2 days. When he got out of bed he said he had a hard time walking and fell. Stated he hurt his knees and his face. Pt has history of a.fib, CHF, CVA. CT brain- negative. CXR negative. EKG- a.fib with rvr. Cardiology consulted. Started on cardizem gtt. Labwork showing- wbc 22.7, ddimer 259, creatinine 1.97, BUN 41, AST, 105, ALT 43, bnp 352, CPK 3,798, troponin 39, 41. Lactate 2.4. Admitted for a.fib with rvr. Allergies: Patient has no known allergies. Prior to Admission medications Medication Sig Start Date End Date Taking? Authorizing Provider apixaban (ELIQUIS) 5 mg tablet Take 1 tablet (5 mg total) by mouth in the morning and 1 tablet (5 mg total) before bedtime. 06/03/24 Yes PAT Sparks metoprolol tartrate (LOPRESSOR) 50 mg tablet Take 1 tablet (50 mg total) by mouth in the morning and 1 tablet (50 mg total) before bedtime. 07/16/24 Yes PAT Sparks Code Status: No Order Past Medical History: Patient has a past medical history of Acute renal failure (ARF), Atrial fibrillation [place] Bluish skin discoloration, CHF (congestive heart failure) ([facility] (2012), Cholecystitis, Contracture of finger joint, CVA (cerebral vascular accident) ([facility] Diverticulosis of colon, Dyspnea, Elevat ed LFTs, Gastritis and duodenitis, GI bleed, Hiatal hernia, Inguinal hernia, Mesenteric artery stenosis, Occult blood in stools, Peptic ulceration, Pneumonia, Respiratory failure ([facility]), and Stroke ([facility]) (06/2016). Past Surgical History: Patient has a past surgical history that includes Tonsillectomy; Cardiac catheterization; Colonoscopy; and Esophagogastroduodenoscopy. Family History: Patient's family history includes Heart attack (age of onset: 40) in his father; Heart disease in his father, sister, and sister; No Known Problems in his mother. Social History: Patient reports that he has never smoked. He has never used smokeless tobacco. He reports that he does not drink alcohol and does not use drugs. Review of Systems Constitutional: Negative for chills and fever. HENT: Negative for ear pain and sore throat. Eyes: Negative for pain and visual disturbance. Respiratory: Positive for shortness of breath. Negative for cough. Cardiovascular: Positive for palpitations. Negative for chest pain. Gastrointestinal: Negative for abdominal pain and vomiting. Genitourinary: Positive for scrotal swelling. Negative for dysuria and hematuria. Musculoskeletal: Negative for arthralgias and back pain. Skin: Negative for color change and rash. Neurological: Negative for seizures and syncope. All other systems reviewed and are negative. OBJECTIVE BP 117/53 Pulse (!) 123 Temp 37.1 ??C (98.7 ??F) (Oral) Resp (!) 31 Ht 177.8 cm (5' 10 ) Wt 81.5 kg (179 lb 10.8 oz) SpO2 95% BMI 25.78 kg/m?? Temp: [36.6 ??C (97.9 ??F)-37.1 ??C (98.7 ??F)] 37.1 ??C (98.7 ??F) Pulse: [93-204] 123 Resp: [17-33] 31 BP: (94-133)/(52-113) 117/53 SpO2: [89 %-98 %] 95 % O2 Device: None (Room air) O2 Flow Rate (L/min): [0 L/min] 0 L/min Intake/Output Summary (Last 24 hours) at 01/13/2025 0854 Last data filed at 01/13/2025 0552 Gross per 24 hour Intake 3371.46 ml Output 210 ml Net 3161.46 ml Physical Exam Constitutional: General: He is not in acute distress. Appearance: He is well-developed. HENT: Head: Normocephalic. Right Ear: External ear normal. Left Ear: External ear normal. Nose: Nose normal. Eyes: Conjunctiva/sclera: Conjunctivae normal. Pupils: Pupils are equal, round, and reactive to light. Cardiovascular: Rate and Rhythm: Tachycardia present. Rhythm irregular. Heart sounds: Normal heart sounds. No murmur heard. Pulmonary: Effort: Pulmonary effort is normal. Breath sounds: Normal breath sounds. No wheezing. Abdominal: General: Bowel sounds are normal. Palpations: Abdomen is soft. There is no mass. Tenderness: There is no abdominal tenderness. There is no guarding. Genitourinary: Comments: Scrotal swelling L>R. Tender. hernia Musculoskeletal: General: Normal range of motion. Cervical back: Normal range of motion. Right lower leg: No edema. Left lower leg: No edema. Lymphadenopathy: Cervical: No cervical adenopathy. Skin: General: Skin is warm and dry. Findings: No rash. Comments: Abrasion on face Neurological: General: No focal deficit present. Mental Status: He is alert and oriented to person, place, and time. Cranial Nerves: No cranial nerve deficit. Coordination: Coordination normal. Psychiatric: Behavior: Behavior normal. Medications Scheduled: cefTRIAXone (ROCEPHIN) IV, 2,000 mg, intravenous, Q24H Infusions: dextrose 5 % in water, 100 mL/hr diltiazem, 5-15 mg/hr, Last Rate: 15 mg/hr (01/13/25 0552) sodium chloride 0.9 %, 75 mL/hr, Last Rate: 75 mL/hr (01/13/25 0552) As Needed: acetaminophen alum-mag hydroxide-simeth dextrose dextrose 5 % in water dextrose 50 % in water (D50W) glucagon (human recombinant) magnesium sulfate magnesium sulfate ondansetron potassium chloride OR potassium chloride OR potassium chloride IV (Adult) sennosides-docusate sodium sodium chloride Allergies: Patient has no known allergies. Labs Recent Results (from the past 24 hours) CBC auto differential Collection Time: 01/12/25 5:11 PM Result Value Ref Range WBC 22.7 (H) 4 - 11 x10E9/L RBC Count 4.72 4.1 - 5.7 X10E12/L Hemoglobin 14.6 13 - 17 g/dL Hematocrit 43.9 39 - 50 % MCV 93 80 - 100 fL MCH 31.0 27 - 34 pg MCHC 33.3 32 - 36 g/dL RDW 13.9 11.5 - 15 % Platelet Count 208 150 - 450 X10E9/L MPV 11.3 7 - 12 fL Bands % 2 % Neutrophils % 90 % Lymphocytes % 2 % Monocytes % 6 % Neutrophils Absolute (M) 20.8 (H) 1.5 - 6.6 10*3/uL Lymphocytes Absolute 0.5 (L) 1.0 - 3.5 10*3/uL Monocytes Absolute 1.4 (H) 0.0 - 0.9 10*3/uL RBC Morphology Normal Differential Type MANUAL DIFFERENTIAL Protime & INR Collection Time: 01/12/25 5:11 PM Result Value Ref Range PROTIME 24.7 (H) 9.8 - 13.2 sec INR 2.1 (H) 0.9 - 1.2 APTT Collection Time: 01/12/25 5:11 PM Result Value Ref Range APTT 34 26 - 37 sec B-type natriuretic peptide Collection Time: 01/12/25 5:11 PM Result Value Ref Range BNP 352 (H) <=100 pg/mL Comprehensive metabolic panel Collection Time: 01/12/25 5:11 PM Result Value Ref Range SODIUM 134 134 - 146 mmol/L POTASSIUM 3.5 3.5 - 5.0 mmol/L CHLORIDE 95 (L) 98 - 109 mmol/L CARBON DIOXIDE 25 22 - 32 mmol/L ANION GAP 14 5 - 15 mmol/L BLOOD UREA NITROGEN 41 (H) 5 - 27 mg/dL CREATININE 1.97 (H) 0.70 - 1.20 mg/dL GLUCOSE 125 (H) 65 - 99 mg/dL CALCIUM 9.0 8.5 - 10.5 mg/dL TOTAL PROTEIN 7.5 6.0 - 8.0 g/dL ALBUMIN 3.5 3.2 - 5.3 g/dL ALKALINE PHOSPHATASE 78 39 - 130 U/L AST 105 (H) <=41 U/L ALT 43 (H) <=40 U/L BILIRUBIN,TOTAL 2.2 (H) 0.3 - 1.2 mg/dL EGFR Non-Race Dependent 35 (L) >=60 ml/min/1.73sq.m D-Dimer Collection Time: 01/12/25 5:11 PM Result Value Ref Range D DIMER 259 (H) 1 - 255 ug/mL Magnesium Collection Time: 01/12/25 5:11 PM Result Value Ref Range MAGNESIUM 1.8 1.8 - 2.6 mg/dL Troponin I, High Sensitivity Collection Time: 01/12/25 5:11 PM Narrative The following orders were created for panel order Troponin I, High Sensitivity. Procedure Abnormality Status --------- ------ Troponin I, High Sensiti...[[id number]] Abnormal Final result Troponin I, High Sensiti...[[id number]] Abnormal Final result Please view results for these tests on the individual orders. CK Total Collection Time: 01/12/25 5:11 PM Result Value Ref Range CPK 3,798 (H) 24 - 195 U/L Troponin I, High Sensitivity 0 Hour Collection Time: 01/12/25 5:11 PM Result Value Ref Range TROPONIN I, HIGH SENSITIVITY 39 (H) <21 ng/L Procalcitonin Collection Time: 01/12/25 5:11 PM Result Value Ref Range PROCALCITONIN 5.10 (H) <0.05 ng/mL Narrative <0.50 ng/mL - Low risk of severe sepsis and/or septic shock. <2.00 ng/mL - Recommend retesting within 6-24 hours. >2.00 ng/mL - High risk of sepsis and/or septic shock. SARS/FLU A+B/RSV by NAAT/Molecular (M4RT Collection Tube) Collection Time: 01/12/25 5:12 PM Result Value Ref Range FLU A PCR Negative Negative FLU B PCR Negative Negative RSV BY PCR Negative Negative SARS COV 2 BY PCR Not Detected Not Detected Narrative The Xpert Xpress SARS-CoV-2/Flu/RSV Plus test is a rapid, multiplexed real-time RT-PCR test intended for the simultaneous qualitative detection and differentiation of SARS-CoV-2, influenza A, influenza B and respiratory syncytial virus (RSV) viral RNA from individuals suspected of respiratory viral infection consistent with COVID-19 by Their healthcare provider. This test has not been validated in asymptomatic patients. The Xpert Xpress SARS-CoV-2 test is intended for use by qualified and trained operators who are performing tests using either [employer] or [employer] systems and islimited to laboratories that meet the CLIA requirements to perform high and moderate complexity tests. The Xpert Xpress SARS-CoV-2/Flu/RSV Plus is only for use under the Food and Drug Administration's Emergency Use Authorization. Results are for the simultaneous detection and differentiation of SARS-CoV-2, influenza A, influenza B and RSV nucleic acids in clinical specimens. SARS-CoV-2, influenzaA, influenza B and RSV RNA identified by this test are generally detectable in upper respiratory samples during the acute phase of infection. Positive results are Indicative of the presence of the identified virus, but do not rule out bacterial infection or co-infection with other pathogens not detected by this test. Clinical correlation with patient history and other diagnostic information is necessary to determine patient infection status. The agent detected may not be the definite cause of disease. Negative results do not preclude SARS-CoV-2, influenza A, influenza B and RSV infection and should not be used as the sole basis for treatment or other patient management decisions. Negative results must be combined with clinical observations, patient history and epidemiological information.An Invalid result may occur with specimen-associated inhibition unable to be resolved with specimenrepeat. Fact Sheet for Healthcare Providers: https://www.fda.gov/media/258956/download Fact Sheet for Patients: https://www.fda.gov/media/525286/download Lactate w/ Reflex Collection Time: 01/12/25 5:23 PM Result Value Ref Range LACTATE W/REFLEX 2.4 (H) 0.4 - 2.0 mmol/L Troponin I, High Sensitivity 1 Hour Collection Time: 01/12/25 6:29 PM Result Value Ref Range TROPONIN I, HIGH SENSITIVITY 41 (H) <21 ng/L Narrative Elevations of hs-Troponin may be due to causes other than myocardial ischemia. Recommend serial hs-Troponin testing be performed. For the initial evaluation and management of chest pain patients, refer to the algorithms linked below. Emergency Patient: [email or web address] [email or web address]: [email or web address] Lactate Collection Time: 01/12/25 8:50 PM Result Value Ref Range LACTATE 1.7 0.4 - 2.0 mmol/L Comprehensive metabolic panel Collection Time: 01/13/25 4:37 AM Result Value Ref Range SODIUM 135 134 - 146 mmol/L POTASSIUM 3.6 3.5 - 5.0 mmol/L CHLORIDE 99 98 - 109 mmol/L CARBON DIOXIDE 24 22 - 32 mmol/L ANION GAP 12 5 - 15 mmol/L BLOOD UREA NITROGEN 40 (H) 5 - 27 mg/dL CREATININE 1.77 (H) 0.70 - 1.20 mg/dL GLUCOSE 129 (H) 65 - 99 mg/dL CALCIUM 8.1 (L) 8.5 - 10.5 mg/dL TOTAL PROTEIN 6.2 6.0 - 8.0 g/dL ALBUMIN 2.8 (L) 3.2 - 5.3 g/dL ALKALINE PHOSPHATASE 66 39 - 130 U/L AST 110 (H) <=41 U/L ALT 46 (H) <=40 U/L BILIRUBIN,TOTAL 1.5 (H) 0.3 - 1.2 mg/dL EGFR Non-Race Dependent 40 (L) >=60 ml/min/1.73sq.m Magnesium Collection Time: 01/13/25 4:37 AM Result Value Ref Range MAGNESIUM 1.6 (L) 1.8 - 2.6 mg/dL CBC auto differential Collection Time: 01/13/25 4:37 AM Result Value Ref Range WBC 17.3 (H) 4 - 11 x10E9/L RBC Count 3.99 (L) 4.1 - 5.7 X10E12/L Hemoglobin 12.5 (L) 13 - 17 g/dL Hematocrit 37.0 (L) 39 - 50 % MCV 93 80 - 100 fL MCH 31.4 27 - 34 pg MCHC 33.9 32 - 36 g/dL RDW 13.6 11.5 - 15 % Platelet Count 211 150 - 450 X10E9/L MPV 10.3 7 - 12 fL Neutrophils % 91.3 % Lymphocytes % 1.9 % Monocytes % 6.5 % Eosinophils % 0.0 % Basophils % 0.3 % Neutrophils Absolute (A) 15.8 (H) 1.5 - 6.6 10*3/uL Lymphocytes Absolute 0.3 (L) 1.0 - 3.5 10*3/uL Monocytes Absolute 1.1 (H) 0.0 - 0.9 10*3/uL Eosinophils Absolute 0.0 0.0 - 0.4 10*3/uL Basophils Absolute 0.1 0.0 - 0.2 10*3/uL Differential Type AUTOMATED DIFFERENTIAL CK Total Collection Time: 01/13/25 4:37 AM Result Value Ref Range CPK 2,276 (H) 24 - 195 U/L Myoglobin, serum Collection Time: 01/13/25 4:37 AM Result Value Ref Range SERUM MYOGLOBIN 2,139.7 (H) 17.4 - 105.7 ng/mL Extra Urine Collection Time: 01/13/25 6:55 AM Specimen: Urine, Clean Catch Midstream Result Value Ref Range Extra Tube Auto Resulted Extra Urine Culture Collection Time: 01/13/25 6:55 AM Specimen: Urine, Clean Catch Midstream Result Value Ref Range Extra Tube Auto Resulted Extra Urine [place] Collection Time: 01/13/25 6:55 AM Specimen: Urine, Clean Catch Midstream Result Value Ref Range Extra Tube Auto Resulted Radiology X-ray chest 1 view Result Date: 01/12/2025 Narrative: Portable chest: HISTORY: Cough. Single view of the chest was obtained. Cardiac and mediastinal contours are within normal limits. Lungs are clear. There is no vascular congestion, effusion, or pneumothorax. Osseous structures appear intact. IMPRESSION: No acute findings. Finalized by Bryon Boucher MD on 01/12/2025 7:[address] brain without contrast Result Date: 01/12/2025 Narrative: CT BRAIN WO CONT: 01/12/2025 6:02 PM Clinical: Head injury. On anticoagulation. EXAM: NONCONTRAST BRAIN CT Comparison: CT brain 04/16/2019 Procedure: Multi-detector CT performed through thebrain without IV contrast. Automatic exposure control utilized. All CT scans at this facility use dose modulation, iterative reconstruction, and/or weight based dosing when appropriate to reduce radiation dose to as low as reasonably achievable. Findings: There is no intracranial hemorrhage, extra-axial fluid collection, mass effect, midline shift, or hydrocephalus. Patent basal cisterns. MRI is more sensitive for evaluation of acute ischemia and subtle parenchymal abnormalities. IMPRESSION: * No acute intracranial abnormality by CT. Stable exam. Finalized by Pasha Young MD on 01/12/2025 6:08 PM HOSPITAL PROBLEM LIST Principal Problem: Atrial fibrillation with rapid ventricular response (CMS-HCC) Active Problems: Stroke (CMS-HCC) Cerebral infarction (CMS-HCC) Cardiomyopathy, nonischemic (CMS-HCC) ASSESSMENT & PLAN Atrial fibrillation with RVR Cardiomyopathy, nonischemic Hx stroke EKG- showing rate of 202 rated improved to 90s currently Started on cardizem gtt- wean as able Lopressor resumed Cardiology following Check TSH Echo ordered CXR negative On eliquis -held for possible surgery Leukocytosis Concern for sepsis Check UA CXR negative Procal 5.1 Downtrending Rocephin 2g daily Lactate 2.4 Fall Traumatic Rhabdomyolysis CK 3,798>>2,276 Myoglobin 2,[address] brain negative Scrotal swelling General surgery consulted Likely hernia, per surgery will need cardiac clearance prior to surgery US ordered -No testicular mass or torsion, limited assessment right testicle due to overlapping structures. Scrotal wall edema and possible herniated bowel into the scrotal sac, consider CT pelvis. Transaminitis Stable, monitor daily Acute kidney injury Creatinine 1.97>>1.77 IVF Likely prerenal d/t hypotension Check UA Renal US Hypokalemia Hypomagnesemia Replace per sliding scale Sepsis suspected, no-not clinically evident at this time. Chart reviewed. Admission orders placed. Home medications reconciled. DVT/VTE prophylaxis: SCD and no pharmacologic prophylaxis due to surgery for hernia . GI prophylaxis: not indicated. PT/OT to evaluate and treat. Not indicated DC planning: tbd . Medically Ready for Discharge: Anticipated in 2-4 Days PAT Blandon 01/13/2025 8:54 AM [facility] 7AM-7PM & 7PM-7AM: EpicChat or page through On-Call Finder. PAT Blandon 01/13/25 5364 Physician Attestation I, RALPH TAMAYO MD, personally performed a face to face diagnostic evaluation on this patient. I have reviewed the note authored by the advance practice provider including history, review of systems,physical examination,medical decision making and agree with the assessment and plan as written. I have seen and evaluated the patient, I have repeated the wood portions of the physical exam and concur with the CESARIO findings. I have reviewed all laboratory findings and imaging reports/films. I agree with the plan as noted. documented in this encounter Consult Notes * Dar Gaines MD - 01/13/2025 3:37 PM EDTAssociated Order(s): IP CONSULT TO CARDIOLOGY Images from the original note were not included. [facility] [address] [place] [address] HISTORY & PHYSICAL / CONSULT NOTE Paul Guerrero PCP: NO PCP, NO PCP Date of Admission: 01/12/2025 Date of Consultation: 01/13/2025 3:37 PM Consult for atrial fibrillation with RVR SUBJECTIVE History of Present Illness: Paul Guerrero is a 74 y.o. male patient with history of chronicatrial fibrillation on Eliquis, nonischemic cardiomyopathy but LV function has improved back to normal, high cholesterol, CVA 2016, history of GI bleed in 2016 Patient had a 4 event at home in the woke up on Saturday with a inguinal hernia has been feeling tired and fell out of bed and then came to the emergency room found to be in atrial fibrillation with RVR rate was very fast about 202 beats per minute started on Cardizem drip and given digoxin 0.5 loading dose heart rate is now better controlled Cardizem drip has been discontinued no chest pain 2D echo ordered yet to be done Previous Medical History: Past Medical History: Diagnosis Date Acute renal failure (ARF) occured at time of GI bleed [place] Bluish skin discoloration CHF [place]congestive heart failure) [place] 2012 initial EF 15 % // last ECHO 55 % Cholecystitis Contracture of finger joint Patient had an accident on a ladder causing deformity and this eventually developed into a contracture. Patient elected not to have surgery. 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) occured at time of GI bleed Stroke ([facility]) 06/2016 rx with TPA Previous Surgical History: Past Surgical History: Procedure Laterality Date CARDIAC CATHETERIZATION COLONOSCOPY diverticulosis / lg ingunial hernia ESOPHAGOGASTRODUODENOSCOPY severe errosis gastritis and duodenitis TONSILLECTOMY Allergies: No Known Allergies Hospital Meds: Current Facility-Administered Medications Medication Dose Route Frequency Provider Last Rate Last Admin acetaminophen (TYLENOL EXTRA STRENGTH) tablet 500 mg 500 mg oral Q6H PRN Abed Ram, DUMP TRUCK OPERATOR-EDI ARCHITECT 500mg at 01/13/25 0628 alum-mag hydroxide-simeth (MAALOX) 200-200-20 mg/5 mL suspension 30 mL 30 mL oral PCHSP Abed , FAITH-EDI ARCHITECT cefTRIAXone (ROCEPHIN) IVPB 2000 mg/50 mL in iso-osmotic dextrose (40 mg/mL premix) 2,000 mg intravenous Q24H Abed Ramn, FAITH-EDI ARCHITECT dextrose (GLUTOSE) 40 % gel 15 g 15 g oral PRN Abed , FAITH-DYLAN dextrose 5 % (D5W) infusion 100 mL/hr intravenous Continuous PRN Abed Ramn, FAITH-EDI ARCHITECT dextrose 50 % in water (D50W) 50% solution 25 mL 25 mL intravenous PRN Abed , PATRICKEDI ARCHITECT digoxin (LANOXIN) injection 500 mcg 500 mcg intravenous Once Dar Gaines MD dilTIAZem (CARDIZEM) infusion 125 mg/125 mL in sodium chloride 0.7% (1 mg/mL premix) 5-15 mg/hr intravenous Continuous Ralph Tamayo MD Stopped at 01/13/25 1330 glucagon HCL injection 1 mg 1 mg intramuscular PRN Abed , PATRICKEDI ARCHITECT HYDROcodone-acetaminophen (NORCO) 5-325 mg per tablet 1 tablet 1 tablet oral Q6H PRN PAT Blandon 1 tablet at 01/13/25 1139 ipratropium (ATROVENT) 0.02 % nebulizer solution 0.5 mg 0.5 mg nebulization Q4H While awake PAT Blandon 0.5 mg at 01/13/25 1421 levalbuterol (XOPENEX) nebulizer solution 1.25 mg 1.25 mg nebulization Q4H While awake PAT Blandon 1.25 mg at 01/13/25 1420 magnesium sulfate IVPB 2000 mg/50 mL in iso-osmotic water (40 mg/mL premix) 2,000 mg intravenous PRN Abed Ramadan, DUMP TRUCK OPERATOR-EDI ARCHITECT magnesium sulfate IVPB 4000 mg/100 mL in iso-osmotic water (40 mg/mL premix) 4,000 mg intravenous PRN Abed Ramadafrancisca, DUMP TRUCK OPERATOR-EDI ARCHITECT Stopped at 01/13/25 1026 metoprolol tartrate (LOPRESSOR) tablet 50 mg 50 mg oral BID Viviana Carr APRN- EDI ARCHITECT 50 mg at 01/13/25 0928 ondansetron (PF) (ZOFRAN) injection 4 mg 4 mg intravenous Q4H PRN Abed Ramadan, DUMP TRUCK OPERATOR-EDI ARCHITECT potassium chloride (KLOR-CON M 20) CR tablet 30-40 mEq 30-40 mEq oral PRN Abed Ramadan, DUMP TRUCK OPERATOR-EDI ARCHITECT 30mEq at 01/13/25 0628 Or potassium chloride (KAYCIEL) 20 mEq/15 mL solution 30-40 mEq 30-40 mEq oral PRN Abed Ramadan, DUMP TRUCK OPERATOR-EDI ARCHITECT Or potassium chloride IVPB 10 mEq/100 mL in water (0.1 mEq/mL premix) 10 mEq intravenous PRN Abed Ramadan, DUMP TRUCK OPERATOR-EDI ARCHITECT sennosides-docusate sodium (SENOKOT-S) 8.6-50 mg 1 tablet 1 tablet oral Q12H PRN Abed Ramdelmy, DUMP TRUCK OPERATOR-EDI ARCHITECT sodium chloride 0.9 % flush 3 mL 3 mL intravenous PRN Aleks He MD sodium chloride 0.9 % infusion 75 mL/hr intravenous Continuous Abed Ramdelmy, DUMP TRUCK OPERATOR-EDI ARCHITECT Stopped at 01/13/25 1133 Home Meds: Prior to Admission medications Medication Sig Start Date End Date Taking? Authorizing Provider apixaban (ELIQUIS) 5 mg tablet Take 1 tablet (5 mg total) by mouth in the morning and 1 tablet (5 mg total) before bedtime. 06/03/24 Yes PAT Sparks metoprolol tartrate (LOPRESSOR) 50 mg tablet Take 1 tablet (50 mg total) by mouth in the morning and 1 tablet (50 mg total) before bedtime. 07/16/24 Yes Braden Durand APRN-DYLAN Social History: TOBACCO: reports that he has never smoked. He has never used smokeless tobacco. ETOH: reports no history of alcohol use. DRUGS: reports no history of drug use. OCCUPATION: Family History: Family History Problem Relation Age of Onset No Known Problems Mother Heart attack Father 40 Heart disease Father Heart disease Sister Heart disease Sister Review of Systems: Constitutional: there has been no unanticipated weight loss, no change in energy level, sleep pattern, or activity level. Eyes: No visual changes or diplopia, no scleral icterus. ENT: No Headaches, hearing loss or vertigo, no mouth sores or sore throat. Cardiovascular: No chest pain, dyspnea on exertion, palpitations or loss of consciousness, no cough, hemoptysis, pleuritic pain, or phlebitis. Respiratory: No cough or wheezing, no sputum production, no hematemesis. Gastrointestinal: No abdominal pain, appetite loss, blood in stools, no change in bowel or bladder habits. Genitourinary: No dysuria, trouble voiding, or hematuria Musculoskeletal: No gait disturbance, weakness or joint complaints Integumentary: No rash or pruritis Neurological: No headache, diplopia, change in muscle strength, numbness or tingling, no change in gait, balance, coordination, mood, affect, memory, mentation, behavior Psychiatric: No anxiety, or depression Endocrine: No temperature intolerance, no excessive thirst, fluid intake, or urination, no tremor Hematologic/Lymphatic: No abnormal bruising or bleeding, blood clots or swollen lymph nodes Allergic/Immunologic: No nasal congestion or hives OBJECTIVE LAST LABS: CBC: Results from last 7 days Lab Units 01/13/25 0437 01/12/25 1711 WBC x10E9/L 17.3* 22.7* HEMOGLOBIN g/dL 12.5* 14.6 HEMATOCRIT % 37.0* 43.9 MCV fL 93 93 PLATELETS X10E9/L 211 208 BMP: Results from last 7 days Lab Units 01/13/25 1332 01/13/25 0437 01/12/25 1711 SODIUM mmol/L -- 135 134 POTASSIUM mmol/L 3.9 3.6 3.5 CHLORIDE mmol/L -- 99 95* CO2 mmol/L -- 24 25 BUN mg/dL -- 40* 41* CREATININE mg/dL -- 1.77* 1.97* CALCIUM mg/dL -- 8.1* 9.0 MAGNESIUM mg/dL 3.0* 1.6* 1.8 PT/INR: Results from last 7 days Lab Units 01/12/25 1711 PROTIME sec 24.7* INR 2.1* APTT: MAG: Results from last 7 days Lab Units 01/13/25 1332 01/13/25 0437 01/12/25 1711 MAGNESIUM mg/dL 3.0* 1.6* 1.8 D Dimer: Results from last 7 days Lab Units 01/12/25 1711 D DIMER ug/mL 259* Troponin I ProBNP Results from last 7 days Lab Units 01/12/25 1711 BNP pg/mL 352* Lipid Panel: Lab Results Component Value Date CHOL 93 (L) 05/12/2024 TRIG 82 05/12/2024 HDL 40 05/12/2024 HDL 32 12/02/2014 CHOLHDLR 12/02/2014 RISK FEMALE RATIO MALE RATIO 1/2 AVERAGE 3.27 3.43 AVERAGE 4.44 4.97 2X 7.05 9.55 3X 11.04 23.39 Liver Panel: No results found for: TBIL , ALB HgA1C: Lab Results Component Value Date HGBA1C 6.3 (H) 09/04/2012 ABG: CV HISTORY: ECHO: No results found. STRESS: No results found. HOLTER: No results found. CARDIAC CATH: No results found. CAROTID: No results found. CXR: X-ray chest 1 view Result Date: 01/13/2025 Portable single view chest dated 01/13/2025 at 11:34 AM INDICATION: Shortness of breath. FINDINGS: Comparison is 01/12/2025. Compromised due to portable technique. Emphysematous changes. Nodule in the left costophrenic angle is unchanged from multiple prior examination consistent with benign etiology. No edema or effusion. No pneumothorax. IMPRESSION: 1. Given the limitations of portable technique,no acute cardiopulmonary abnormality seen. 2. If symptoms persist consider PA and lateral chest in the radiology department. Finalized by Jose Luis Asif MD on 01/13/2025 11:48 AM X-ray chest 1 view Result Date: 01/12/2025 Portable chest: HISTORY: Cough. Single view of the chest was obtained. Cardiac and mediastinal contours are within normal limits. Lungs are clear. There is no vascular congestion, effusion, or pneumothorax. Osseous structures appear intact. IMPRESSION: No acute findings. Finalized by Bryon Boucher MD on 01/12/2025 7:21 PM EKG: Atrial fibrillation with RVR heart rate was about 200 beats per minute with nonspecific STT wave changes TELEMETRY: Atrial fib rate better controlled about 105 beats per minute PHYSICAL EXAM Admission Weight: Weight: 77.1 kg (170 lb) I/O last 3 completed shifts: In: 3371.5 [I.V.:809.6; IV Piggyback:2561.9] Out: 210 [Urine:200; Blood:10] Weight change: Wt Readings from Last 3 Encounters: 01/13/25 81.5 kg (179 lb 10.8 oz) 05/19/24 80.5 kg (177 lb 6.4 oz) 04/22/23 79.4 kg (175 lb) Vitals: Vitals: 01/13/25 1237 01/13/25 1420 01/13/25 1432 01/13/25 1516 BP: 107/51 92/59 103/63 Pulse: 111 96 95 100 Resp: 24 (!) 30 Temp: (!) 38.2 ??C (100.8 ??F) 36.8 ??C (98.3 ??F) TempSrc: Axillary Oral SpO2: 93% 91% 90% Weight: Height: Admit Weight Weight: 77.1 kg (170 lb) Last 3 Weights Last 3 Weight Readings 01/12/25 1644 01/13/25 0500 Weight: 77.1 kg (170 lb) 81.5 kg (179 lb 10.8 oz) Body mass index is 25.78 kg/m??. INTAKE/OUTPUT I/O last 3 completed shifts: In: 3371.5 [I.V.:809.6; IV Piggyback:2561.9] Out: 210 [Urine:200; Blood:10] Intake/Output Summary (Last 24 hours) at 01/13/2025 1537 Last data filed at 01/13/2025 1508 Gross per 24 hour Intake 3984.88 ml Output 715 ml Net 3269.88 ml General appearance: Alert oriented and cooperative, in no acute distress Skin: Warm and dry to touch Head: Normocephalic, without obvious abnormality, atraumatic Eyes: Conjunctivae unremarkable, EOMs intact, sclera non icteric Neck: No JVD, no carotid bruit, neck supple, trachea midline Lungs: Clear to ausculation bilaterally, no use of accessory muscles. Heart:: RRR with normal S1 and S2 , no murmurs and no gallops. Abdomen: Soft, non-tender, bowel sounds normal Extremities: No edema Neurologic: Oriented to time, person and place, affect appropriate, no focal/major motor or sensorydefects noted Psychiatric: Appropriate mood, memory and judgment ASSESSMENT 1 atrial fibrillation with RVR atrial ablation with RVR rate was over 200 beats per minute Currently in 105 beats per minute now off Cardizem drip and Lopressor 50 mg p.o. b.i.d. has been resumed 2D echo May 13, 2024 was normal LV function which is good prognosis 2D echo ordered yet to be done because of fast heartbeat 3 history of CVA 2017 no motor deficit 4 traumatic rhabdomyolysis With the renal insufficiency 5 inguinal hernia scrotal swelling General surgery consulted PLAN Added extra digoxin loading dose because of soft blood pressure 2D echo pending to be done Dar Gaines MD This note was completed using a voice band teacher system. Every effort was made to ensure accuracy. However, inadvertent computerized band teacher errors may be present. * Delmar Ramirez MD - 01/13/2025 1:54 PM EDTAssociated Order(s): IP CONSULT TO GENERAL SURGERY Images from the original note were not included. Chief Complaint: Left inguinal hernia History of Present Illness: Paul Guerrero is a 74 y.o. male who presented to the ER due to fall. Notes that he has beenrecently and weak over the few days. Reports weakness. He notes that he hurt his face and knees. He reports scrotal swelling. He reports a known hernia in his groin that has been present for years. Over the last 4-5 days the hernia has grown significantly in size. His entire scrotum is swollen. His scrotum is not painful if he is laying down in the hernia is untouched. If you try to reduce thehernia, his groin/scrotum is painful. He has been tolerating p.o. intake without any nausea or vomiting. He is passing gas. He has been having bowel function, although it is liquid. He is admitted with atrial fibrillation with RVR. He is on diltiazem drip. He received Eliquis thismorning. HPI Review of Systems Constitutional: Negative for fever and chills. Respiratory: Negative for shortness of breath. Cardiovascular: Negative for chest pain and palpitations. Gastrointestinal: Negative for nausea, vomiting and abdominal pain. Scrotal swelling Genitourinary: Negative for dysuria and difficulty urinating. Skin: Negative for rash and wound. Allergic/Immunologic: Negative for immunocompromised state. Neurological: Negative for weakness and light-headedness. Hematological: Does not bruise/bleed easily. Psychiatric/Behavioral: Negative for behavioral problems and confusion. Past Medical History: Diagnosis Date Acute renal failure (ARF) occured at time of GI bleed [place]rial [place] Bluish skin discoloration CHF (congestive heart failure) [place] 2012 initial EF 15 % // last ECHO 55 % Cholecystitis Contracture of finger joint Patient had an accident on a ladder causing deformity and this eventually developed into a contracture. Patient elected not to have surgery. 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 / [facility] / Dr Bruce/ CTA Occult blood in stools abn fit test Peptic ulceration GI bleed Pneumonia Respiratory failure [place] occured at time of GI bleed Stroke [place] 06/2016 rx with TPA Past Surgical History: Procedure Laterality Date CARDIAC CATHETERIZATION COLONOSCOPY diverticulosis / lg ingunial hernia ESOPHAGOGASTRODUODENOSCOPY severe errosis gastritis and duodenitis TONSILLECTOMY No Known Allergies Current Facility-Administered Medications: acetaminophen (TYLENOL EXTRA STRENGTH) tablet 500 mg, 500 mg, oral, Q6H PRN, Abed Ramadan, DUMP TRUCK OPERATOR-EDI ARCHITECT, 500 mg at 01/13/25 0628 alum-mag hydroxide-simeth (MAALOX) 200-200-20 mg/5 mL suspension 30 mL, 30 mL, oral, PCHSP, Ab Ramn, FAITH-EDI ARCHITECT cefTRIAXone (ROCEPHIN) IVPB 2000 mg/50 mL in iso-osmotic dextrose (40 mg/mL premix), 2,000 mg, intravenous, Q24H, Ab Ramn, FAITH-EDI ARCHITECT dextrose (GLUTOSE) 40 % gel 15 g, 15 g, oral, PRN, Ab Ramadan, DUMP TRUCK OPERATOR-EDI ARCHITECT dextrose 5 % (D5W) infusion, 100 mL/hr, intravenous, Continuous PRN, Ab Ramadafrancisca, DUMP TRUCK OPERATOR-EDI ARCHITECT dextrose 50 % in water (D50W) 50% solution 25 mL, 25 mL, intravenous, PRN, Ab Ramadan, DUMP TRUCK OPERATOR-EDI ARCHITECT dilTIAZem (CARDIZEM) infusion 125 mg/125 mL in sodium chloride 0.7% (1 mg/mL premix), 5-15 mg/hr, intravenous, Continuous, Ralph Tamayo MD, Last Rate: 15 mL/hr at 01/13/25 0552, 15 mg/hr at 01/13/25 0552 glucagon HCL injection 1 mg, 1 mg, intramuscular, PRN, francisca, DUMP TRUCK OPERATOR-EDI ARCHITECT HYDROcodone-acetaminophen (NORCO) 5-325 mg per tablet 1 tablet, 1 tablet, oral, Q6H PRN, PAT Blandon, 1 tablet at 01/13/25 1139 ipratropium (ATROVENT) 0.02 % nebulizer solution 0.5 mg, 0.5 mg, nebulization, Q4H While awake, PAT Blandon levalbuterol (XOPENEX) nebulizer solution 1.25 mg, 1.25 mg, nebulization, Q4H While awake, PAT Blandon magnesium sulfate IVPB 2000 mg/50 mL in iso-osmotic water (40 mg/mL premix), 2,000 mg, intravenous,PRN, Ab Ramadan, DUMP TRUCK OPERATOR-EDI ARCHITECT magnesium sulfate IVPB 4000 mg/100 mL in iso-osmotic water (40 mg/mL premix), 4,000 mg, intravenous, PRN, Abed Ramadan, DUMP TRUCK OPERATOR-EDI ARCHITECT, Stopped at 01/13/25 1038 metoprolol tartrate (LOPRESSOR) tablet 50 mg, 50 mg, oral, BID, Evelynr Carr, DUMP TRUCK OPERATOR-EDI ARCHITECT, 50 mg at 01/13/25 0928 ondansetron (PF) (ZOFRAN) injection 4 mg, 4 mg, intravenous, Q4H PRN, Abed Ramadan, DUMP TRUCK OPERATOR-EDI ARCHITECT potassium chloride (KLOR-CON M 20) CR tablet 30-40 mEq, 30-40 mEq, oral, PRN, 30 mEq at 01/13/25 0628 OR potassium chloride (KAYCIEL) 20 mEq/15 mL solution 30-40 mEq, 30-40 mEq, oral, PRN OR potassium chloride IVPB 10 mEq/100 mL in water (0.1 mEq/mL premix), 10 mEq, intravenous, PRN, Abed Ramadan, DUMP TRUCK OPERATOR-EDI ARCHITECT sennosides-docusate sodium (SENOKOT-S) 8.6-50 mg 1 tablet, 1 tablet, oral, Q12H PRN, Abed Ramadan, DUMP TRUCK OPERATOR-EDI ARCHITECT sodium chloride 0.9 % flush 3 mL, 3 mL, intravenous, PRN, Aleks He MD sodium chloride 0.9 % infusion, 75 mL/hr, intravenous, Continuous, Abed Ramadan, DUMP TRUCK OPERATOR-EDI ARCHITECT, Last Rate: 75 mL/hr at 01/13/25 0552, Rate Verify at 01/13/25 0552 Social History Socioeconomic History Marital status: Single Spouse name: Not on file Number of children: Not on file Years of education: Not on file Highest education level: Not on file Occupational History Not on file Tobacco Use Smoking status: Never Smokeless tobacco: Never Vaping Use Vaping status: Never Used Substance and Sexual Activity Alcohol use: No Drug use: No Sexual activity: Defer Other Topics Concern Caffeine Use Yes Social History Narrative Not on file Social Drivers of Health Financial Resource Strain: Not on file Food Insecurity: No Food Insecurity (01/13/2025) Hunger Screening Food Insecurity - Worry: Never True Food Insecurity - Inability: Never True Transportation Needs: No Transportation Needs (01/12/2025) PRAPARE - Transportation Lack of Transportation (Medical): No Lack of Transportation (Non-Medical): No Physical Activity: Not on file Stress: Not on file Social Connections: Not on file Interpersonal Safety: Not At Risk (01/12/2025) Humiliation, Afraid, Rape, and Kick questionnaire Fear of Current or Ex-Partner: No Emotionally Abused: No Physically Abused: No Sexually Abused: No Housing Instability: Low Risk (01/12/2025) Housing Instability Housing Instability: No Family History Problem Relation Age of Onset No Known Problems Mother Heart attack Father 40 Heart disease Father Heart disease Sister Heart disease Sister Physical Exam Vitals reviewed. Constitutional: Appearance: Normal appearance. HENT: Head: Normocephalic and atraumatic. Eyes: Pupils: Pupils are equal, round, and reactive to light. Cardiovascular: Rate and Rhythm: Normal rate. Pulmonary: Effort: Pulmonary effort is normal. Abdominal: General: There is no distension. Palpations: Abdomen is soft. Tenderness: There is no abdominal tenderness. Hernia: A hernia is present. Comments: Large scrotal inguinal hernia, unable to reduce, scrotal edema Musculoskeletal: General: No swelling. Skin: General: Skin is warm and dry. Neurological: Mental Status: He is alert and oriented to person, place, and time. Mental status is at baseline. Psychiatric: Mood and Affect: Mood normal. Behavior: Behavior normal. Vital Signs: Blood pressure 107/51, pulse 111, temperature (!) 38.2 ??C (100.8 ??F), temperature source Axillary, resp. rate 24, height 177.8 cm (5' 10 ), weight 81.5 kg (179 lb 10.8 oz), SpO2 93%. Respiratory Source: O2 Device: None (Room air) Admission Weight: Weight: 77.1 kg (170 lb) Labs: Lab Results Component Value Date WBC 17.3 (H) 01/13/2025 HGB 12.5 (L) 01/13/2025 HCT 37.0 (L) 01/13/2025 MCV 93 01/13/2025 PLT 211 01/13/2025 Lab Results Component Value Date GLU 129 (H) 01/13/2025 CALCIUM 8.1 (L) 01/13/2025 K 3.9 01/13/2025 CO2 24 01/13/2025 CL 99 01/13/2025 BUN 40 (H) 01/13/2025 CREATININE 1.77 (H) 01/13/2025 No results found for: AMYLASE No results found for: LIPASE Lab Results Component Value Date ALT 46 (H) 01/13/2025 AST 110 (H) 01/13/2025 ALKPHOS 66 01/13/2025 Lab Results Component Value Date INR 2.1 (H) 01/12/2025 INR 1.1 07/18/2016 INR 1.2 06/01/2016 PROTIME 24.7 (H) 01/12/2025 PROTIME 12.7 (H) 07/18/2016 PROTIME 13.4 (H) 06/01/2016 Imaging: Ultrasound scrotum CLINICAL INFORMATION: testicular swelling. COMPARISON: None. PROCEDURE: Routine testicular ultrasound was obtained utilizing real-time grayscale and color-flow Doppler imaging. Duplex spectral Doppler waveforms obtained and reviewed. FINDINGS: Scrotal wall edema. The right testicle measures 3.2 x 2.7 x 1.3 cm. The left testicle measures 3.9 x 2.1 x 3.7 cm. No definite testicular mass. Tubular ectasia right rete testes. Small left hydrocele. Duplex spectral Doppler documents arterial and venous spectral waveforms within the major arterial inflow and venous outflow of both testicles. No definite torsion. There appears to be some bowel content in the scrotum. IMPRESSION: * No testicular mass or torsion, limited assessment right testicle due to overlapping structures. * Scrotal wall edema and possible herniated bowel into the scrotal sac, consider CT pelvis. Finalized by Jeb Luciano MD on 01/13/2025 12:45 PM X-ray chest 1 view Portable single view chest dated 01/13/2025 at 11:34 AM INDICATION: Shortness of breath. FINDINGS: Comparison is 01/12/2025. Compromised due to portable technique. Emphysematous changes. Nodule in the left costophrenic angle is unchanged from multiple prior examination consistent with benign etiology. No edema or effusion. No pneumothorax. IMPRESSION: 1. Given the limitations of portable technique, no acute cardiopulmonary abnormality seen. 2. If symptoms persist consider PA and lateral chest in the radiology department. Finalized by Jose Luis Asif MD on 01/13/2025 11:48 AM Assessment: Paul Guerrero is a 74 y.o.male with large left inguinal hernia extending into the scrotum, containing bowel, unable to reduce. The patient states that it has looked this way for at least 4-5 days. ? subacute. Not painful unless you attempt to reduce it. Having bowel function. @DIAGPRIM@ Plan: Needs to be medically optimized prior to surgery Will need cardiac clearance, fu echo Hold Eliquis Plan for open left inguinal hernia repair this hospital stay Evaluation included: Preparing to see the patient (e.g., review of tests) Obtaining and/or reviewing separately obtained history Performing a medically appropriate examination and/or evaluation Counseling and educating the patient/family/caregiver Referring and communicating with other health day care worker Delmar Ramirez MD [facility] General Surgery [place] documented in this encounter Nursing Notes * Tricia Sierra RN - 01/14/2025 2:08 PM EDT Ptn transport arrived to pepper picker patient and transport to [facility]. Patients vital signs remain stable. Report given patient left floor at 1408. * Tricia Sierra RN - 01/14/2025 12:45 PM EDT Patients sister Glory arrived to unit to check on patient. Dr. Ramirez present to speak with sister and explain events during surgery. Nurse notified sister of transfer to [facility] ICU within 90 minutes. * Tricia Sierra RN - 01/14/2025 12:21 PM EDT Received return phone call from beau mcmillan nurse at [facility] taking report on patient. Gave detailed report on patient history and condition. Advised nurse to call with any questions. * Tricia Sierra RN - 01/14/2025 12:14 PM EDT Patient returned to floor sedated on ventilator. Patients art line set up and monitoring pressures.Vs stable no bleeding noted to dressings to abdomen. J.P. drain containing serosanguinous fluid present and draining. Will continue to monitor closely until transport arrives. * Tricia Sierra RN - 01/14/2025 12:00 PM EDT Contacted [facility] icu to notify of transport time and give report. Left transport time and name andphone number for receiving nurse to call back for report. * Cynthia Wheeler RN - 01/14/2025 11:[address] [facility] called with a room number. Patient is to be transferred to [place] to room 2012. Number to call report is [phone]. Primary RN arranged transportation with PTN was arranged and ETA is set for 90mins to 2hrs from now. PTN mobile was advised that patient was ventilated through ETTand had propofol and levophed running at this time Transfer certification form and PTN paperwork was completed and sent via current process at this time. documented in this encounter ED Notes * Aleks He MD - 01/12/2025 4:56 PM EDT Images from the original note were not included. [facility] - EMERGENCY Pt Name: Paul Guerrero Birthdate: 1950 Chief Complaint: Chief Complaint Patient presents with ??? Fall Pt fell this morning around 11, pt couldn't get up and neighbors heard him banging and called squad History of Present Illness: Initial evaluation performed at 4:[address] Aleks He. Patient is a 74 y.o. male who presents to the ED for evaluation of a fall. Pt states that he was fine a few days ago. He explains that on Saturday he was fine then on Saturday he woke up and had a hernia on his testicles. He includes that he hasn't lifted anything heavy and hasn't had a cough. He mentions that he did have a minor one a year ago. He explains that he has been getting hot and cold flashes and has felt tired. He states that he slept for 2 and a half days and feels like he's getting weaker every day. He states that today he got out of bed, had a hard time walking and fell out of bed. He fell between the wood work in his house and hurt both his knees and his face. He includes that he does have a-fib. 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 Acute renal failure (ARF) occured at time of GI bleed ??? Atrial [place] ??? Bluish skin discoloration ??? CHF (congestive heart failure) [place] 2012 initial EF 15 % // last ECHO 55 % ??? Cholecystitis ??? Contracture of finger joint Patient had an accident on a ladder causing deformity and this eventually developed into a contracture. Patient elected not to have surgery. ??? CVA (cerebral vascular accident) [place] ??? Diverticulosis of colon ??? Dyspnea ??? Elevated LFTs occured at time of GI bleed ??? Gastritis and duodenitis ??? GI bleed upper bleed ??? Hiatal hernia small ??? Inguinal hernia very larger hernia/ dx when the colonoscopy scope felt in the scrotum ??? 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 Occult blood in stools abn fit test ??? Peptic ulceration GI bleed ??? Pneumonia ??? Respiratory failure [place] occured at time of GI bleed ??? Stroke [place] 06/2016 rx with TPA Past Surgical History: Past Surgical History: Procedure Laterality Date ??? CARDIAC CATHETERIZATION ??? COLONOSCOPY diverticulosis / lg ingunial hernia ??? ESOPHAGOGASTRODUODENOSCOPY severe errosis gastritis and duodenitis ??? TONSILLECTOMY Family History: Family History Problem Relation Age of Onset ??? No Known Problems Mother ??? Heart attack Father 40 ??? Heart disease Father ??? Heart disease Sister ??? Heart disease Sister Social History: Social History Socioeconomic History ??? Marital status: Single Tobacco Use ??? Smoking status: Never ??? Smokeless tobacco: Never Vaping Use ??? Vaping status: Never Used Substance and Sexual Activity ??? Alcohol use: No ??? Drug use: No ??? Sexual activity: Defer Other Topics Concern ??? Caffeine Use Yes Social Drivers of Health Food Insecurity: No Food Insecurity (01/12/2025) Hunger Screening ??? Food Insecurity - Worry: Never True ??? Food Insecurity - Inability: Never True Review of Systems: Review of Systems Physical Exam: ED Triage Vitals [01/12/25 1644] Temp Heart Rate Resp BP SpO2 36.6 ??C (97.9 ??F) (!) 201 20 (!) 131/106 92 % Temp Source Heart Rate Source Patient Position BP Location FiO2 (%) Oral Monitor High-fowlers Left arm -- Vitals: 01/12/25 1644 01/12/25 1645 BP: (!) 131/106 Temp: 36.6 ??C (97.9 ??F) TempSrc: Oral Pulse: (!) 201 (!) 204 Resp: 20 (!) 33 SpO2: 92% MAP (mmHg): 115 Height: 177.8 cm (5' 10 ) Weight: 77.1 kg (170 lb) Physical Exam Vitals reviewed. HENT: Head: Normocephalic and atraumatic. Eyes: Conjunctiva/sclera: Conjunctivae normal. Cardiovascular: Rate and Rhythm: Tachycardia present. Rhythm irregular. Pulmonary: Effort: Pulmonary effort is normal. Breath sounds: Normal breath sounds. Abdominal: General: There is no distension. Palpations: Abdomen is soft. Musculoskeletal: General: Normal range of motion. Cervical back: Normal range of motion and neck supple. Skin: General: Skin is warm and dry. Findings: Abrasion present. Comments: Perforation to the face and abrasions to both knees. Neurological: General: No focal deficit present. Mental Status: He is alert and oriented to person, place, and time. GCS: GCS eye subscore is 4. GCS verbal subscore is 5. GCS motor subscore is 6. Procedure: Procedures Re-evaluation: IVerena (scribe), documented on behalf and in the presence of Dr. Aleks He. 19:20 Dr. He re-evaluated the pt. He explained to the pt that the best plan of care for him is to be admitted to the hospital. Pt is understanding and agreeable with being admitted to the hospital. Medical Decision Making 50 minutes of Critical Care. This time was used for chart review, phone calls, re-evaluation and documentation. This time excludes procedure time. Amount and/or Complexity of Data Reviewed Labs: ordered. Radiology: ordered. ECG/medicine tests: ordered. Risk OTC drugs. Prescription drug management. ED Course: Clinical Impressions as of 01/12/252004 Atrial fibrillation with rapid ventricular response ([facility]) Non-traumatic rhabdomyolysis Contusion of face, initial encounter Leukocytosis, unspecified type . ED Disposition None . Please note that portions of this note were completed with a voice recognition program. Efforts were made to edit the dictations but occasionally words are mis-transcribed. Verena Hart 01/12/25 1704 Verena Hart 01/12/25 1921 Verena Hart 01/12/25 1937 Aleks He MD 01/12/25 2350 documented in this encounter Miscellaneous Notes * Query Response - Delmar Ramirez MD - 01/15/2025 9:01 AM EDT Query Response Note AUTOMATED QUERY TEXT: Type of Heart Failure: This query seeks further clarification of documentation to reflect all conditions that you are monitoring, evaluating, treating or that extend hospitalization or utilize additional resources. Please utilize your independent clinical judgment when addressing the question(s) below. Please provide further specificity, if known. Clinical indicators include: atrial fibrillation, lv function, echo, chf (congestive heart failure,ef, dyspnea, dyspnea on exertion, troponin, probnp, bnp, cxr, x-ray chest 1 view, shortness of breath, edema, effusion, vascular congestion, atrial fib, jvd, swelling, function, shortness of breath Options provided: -- Systolic heart failure [HFrEF] -- Diastolic heart failure [HFpEF] -- Systolic and diastolic heart failure [HFrEF and HFpEF] -- Biventricular heart failure -- High output heart failure -- End stage heart failure -- Other - I will add my own diagnosis -- Dismiss - Not applicable / Not valid AUTOMATED QUERY RESPONSE TEXT: Provider dismissed this query because it was not applicable to the patient or not a valid query. v Electronically signed by: Delmar Ramirez MD 01/15/2025 8:59 AM * Plan of Care - Tricia Sierra RN - 01/14/2025 11:09 AM EDT Problem: Pain Goal: Patient goal is pain score less than 4, able to rest, and participant in treatment plan as appropriate Description: INTERVENTIONS: 1. Encourage patient or legal dental detail representative to report early pain and ask for pain medicine when needed 2. Assess pain using appropriate pain scale and include the scale used when documenting 3. Administer analgesics based on type and severity of pain and evaluate response within appropriate time frame 4. Implement non-pharmacological measures as appropriate and evaluate response 5. Consider cultural and social influences on pain and pain management 6. Notify LIP if interventions ineffective or patient reports new pain 7. Monitor vital signs including pulse ox, end-tidal CO2 based on pain intervention 8. Reassess pain per policy 9. Teach patient or legal dental detail representative interventions for comforting Outcome: Progressing Note: Evaluation of progress towards goal: Pt able to report pain according to 0/10 pain scale. Medicating patient for pain per orders. Problem: Safety Goal: Patient will be injury free during hospitalization Description: INTERVENTIONS: 1. Assess patient's risk for falls and implement fall prevention plan of care per policy 2. Provide and maintain a safe environment 3. Proper use of double Identifiers 4. Medication administration using the 5 rights 5. Hand hygiene 6. Specimens are labeled at the bedside 7. Instruct patient/ patient dental detail representative about use of safety devices 8. Include patient/ patient dental detail representative in decisions related to safety Outcome: Progressing Note: Evaluation of progress towards goal: Pt remains free from falls or accidental injury during stay. Fall prevention measures in place. Hourly rounding per RN and NA maintained. * Op Note - Delmar Ramirez MD - 01/14/2025 9:03 AM EDT Operative Note: Procedure Date: 01/14/2025 Pre-operative Diagnosis: Incarcerated left inguinal hernia Post-operative Diagnosis: Incarcerated left inguinal hernia containing perforated sigmoid colon anddevitalized omentum/left testicle Surgeon: Surgeons and Role: * Delmar Ramirez MD - Primary * Jason Adorno DO - Assisting Procedure: Open primary incarcerated left inguinal hernia repair (Bassini) Sigmoid colectomy with end-colostomy Left orchiectomy Omentectomy Anesthesia: General EBL: Minimal Specimens: Sigmoid colon Hernia sac fluid Complications: none immediate Findings: Large incarcerated left inguinal hernia, containing perforated sigmoid colon, feculent and purulent fluid in hernia sac, devitalized omentum. Devitalized left testicle and cord structures, omentectomy as well as left orchiectomy performed. Jed's procedure performed. Open primary incarcerated left inguinal hernia repair performed, Bassini type Indications: Paul Guerrero is a 74 y.o. male with incarcerated left inguinal hernia. The plan for open left inguinal hernia repair, possible exploratory laparotomy, possible bowel resection, possible colostomy was discussed with the patient and family. After a thorough explanation of the ris ks, benefits, and alternatives the patient agreed to proceed with the operative intervention. Procedure in Detail: The patient was brought to the operating room and placed in supine position. Cardiopulmonary monitoring was initiated. EPC cuffs were placed. General endotracheal anesthesia was induced. Marinelli catheter was placed. The patient was on therapeutic antibiotics. Arterial line was placed due to hypotension noted upon induction requiring vasopressor support and f need for accurate blood pressure monitoring. The patient's abdomen and groin was prepped and draped in the usual sterile fashion. A criticalsurgical time-out was performed. A left groin skin crease incision was made and deepened through subcutaneous tissue until the aponeurosis of the external oblique was encountered. A large hernia sac containing bowel was encountered at the external ring. The external oblique aponeurosis was opened in the direction of its fibers. Flaps of the external oblique were developed cephalad and anteriorly. The hernia sac was opened. Immediately, feculent and purulent fluid was encountered. This was all suctioned. Fluid was sent for cultures. The hernia sac contained devitalized omentum as well as perforated sigmoid colon. Using LigaSure device, devitalized omentum was resected. Attention was then turned to the perforated sigmoid colon. This would have to be resected. We proceeded with exploratory laparotomy. A midline laparotomy incision was made and deepened through the subcutaneous tissue until the fascia was reached. The fascia was elevated and incised. The peritoneal cavity was entered. No gross contamination was noted within the abdominal cavity. The left inguinal floor was then partially opened using electrocautery, and the perforated sigmoid colon was reduced back into the abdominal cavity. The sigmoid colon was redundant. The sigmoid and descending colon was freed from its peritoneal attachments along the pelvis and the white line of Toldt. Points of transection were chosen at the rectosigmoid junction distally, and the distal descending colon proximally. A blue MAGALY stapler was used to divide the bowel at these transection points. The mesentery was then divided using LigaSure device. The specimen was removed and sent for pathology. The rectal stump was tagged with 2-0 Prolene suture. The proximal colon easily reached the proposed colostomy site in the left lower quadrant without tension. A disc of skin was removed from the colostomy site in the left lower quadrant. The incision was deepened through all the layers of the abdominal wall and dilated to admit 2 fingers. The colon was passed out through the ostomy site without torsion or tension. The abdominal cavity was irrigated. The fascia was closed with a running suture of 0 looped PDS in a bidirectional fashion. Attention was then turned back to the left groin incision. The cord, hernia sac and left testicle were identified. These all appeared to be devitalized. Decision was made to proceed with left orchiectomy. The hernia sac, left cord structures including the vas deferens and testicular vessels were identified and subsequently transected using LigaSure device. The hernia sac and left testicle along with cord structures were dissected away from subcutaneous tissue, resected and sent for pathology. Hemostasis was assured. The remainder peritoneum at the base of the hernia sac was then closed using pursestring of 0 Vicryl suture. Hemostasis was assured. Attention was then turned to the floor of the inguinal canal. The conjoint tendon was then sutured to the shelving edge of the inguinal ligamentusing multiple simple sutures of 0 PDS. The suture line began at the pubic tubercle and commence laterally beyond the internal ring. Hemostasis was checked once again. The external oblique aponeurosis was then closed using running suture of 2-0 PDS. A 15 Kazakh round RAAD drain was placed in the leftscrotum and secured to the skin using 3-0 nylon suture. Alda's fascia was closed using interrupted 3-0 Vicryl suture. The skin of both incisions was closed using amanda, loosely. Sterile dressing was applied to both incisions. Attention was then turned to the colostomy. The colostomy was matured using multiple interrupted sutures of 3-0 Vicryl. An ostomy appliance was applied. Throughout the procedure, the patient was hypotensive requiring vasopressor support. The decision was made to keep him intubated and sedated. The patient was transferred to the floor/ICU. Sponge, lap, and instrument counts were correct x2 at the end of the procedure. The patient tolerated the procedure well, however, was requiring vasopressor support throughout the procedure. The decision was made to keep him intubated and sedated. He was transferred to the floor/ICU. Due to need for higher level of care, the patient will be transferred to [facility]. Of note, during the case, patient was noted to have minimal urine output. Intraoperatively, the bladder was checked. The bladder was mildly distended with urine. The Marinelli catheter could not be felt within the bladder. After the case was done, Marinelli catheter was removed. Blood was noted coming outof the urethra and in the catheter. I attempted to place a coude catheter back into the bladder, however did not get any return of urine. When flushed, saline was seen coming around the catheter. At this point, I spoke to Dr. Stevenson, Urology, who recommended that the catheter be removed. No re-attempt should be made to replace it until patient is seen by Urology. Delmar Ramirez MD [facility] [place] The 1st assistant reading teacher was essential to the completion of this case starting from the room set up to thepatient arrival to the room. There was assistance and preparation of equipment, induction of anesthesia, and prepping and draping the patient. Once the case was underway there was central handling oftissue with various instruments to facilitate the execution of surgical maneuvers. During the body of the case the versus system provided suctioning, cutting of suture in tissue with both electrocautery and stainless steel surgical instruments, tying of sutures and assistance in the closure of wounds and dressing application. At the conclusion of the operative per portions of the case the 1st assistant reading teacher provided assistance in the transition to the postsurgical care site. * Discharge Planning Note - Shima Diego RN - 01/14/2025 8:40 AM EDT DISCHARGE PLANNING NOTE [facility] Cardiology follow up scheduled. Per general surgery note of yesterday, left inguinal hernia repair this stay. Patient Discharge Plan: Home pending clinical course and self care. Follow up as below: Refuses PCP appointments. [facility] ([facility]) in 2-3 weeks. Scheduled for February 10, 2025 @ 0945. Care navigation to follow for possible general surgery appointment need. - Shima Diego RN 01/14/25 8:40 AM * Plan of Care - Haydee Coleman RN - 01/14/2025 2:17 AM EDT Problem: Pain Goal: Patient goal is pain score less than 4, able to rest, and participant in treatment plan as appropriate Description: INTERVENTIONS: 1. Encourage patient or legal dental detail representative to report early pain and ask for pain medicine when needed 2. Assess pain using appropriate pain scale and include the scale used when documenting 3. Administer analgesics based on type and severity of pain and evaluate response within appropriate time frame 4. Implement non-pharmacological measures as appropriate and evaluate response 5. Consider cultural and social influences on pain and pain management 6. Notify LIP if interventions ineffective or patient reports new pain 7. Monitor vital signs including pulse ox, end-tidal CO2 based on pain intervention 8. Reassess pain per policy 9. Teach patient or legal dental detail representative interventions for comforting 01/14/2025214 by CHRISTOS Hubbard Outcome: Progressing Note: Evaluation of progress towards goal: Denies pain w/ exception of scrotal pain w/ movement or touch. Denies need for pain medications. 01/14/2025209 by CHRISTOS Hubbard Outcome: Progressing Note: Evaluation of progress towards goal: Denies pain, except to scrotal area with movement/ touch. Denies need for pain medication. Problem: Safety Goal: Patient will be injury free during hospitalization Description: INTERVENTIONS: 1. Assess patient's risk for falls and implement fall prevention plan of care per policy 2. Provide and maintain a safe environment 3. Proper use of double Identifiers 4. Medication administration using the 5 rights 5. Hand hygiene 6. Specimens are labeled at the bedside 7. Instruct patient/ patient dental detail representative about use of safety devices 8. Include patient/ patient dental detail representative in decisions related to safety 01/14/2025214 by CHRISTOS Hubbard Outcome: Progressing Note: Evaluation of progress towards goal: Remains free from injury. Safety precautions maintained. 01/14/2025209 by CHRISTOS Hubbard Outcome: Progressing Note: Evaluation of progress towards goal: Remains free from injury. Safety precautions maintained. Problem: Knowledge Deficit Goal: Patient/patient dental detail representative demonstrates understanding of disease process, treatment plan,medications, and discharge instructions Description: INTERVENTIONS 1. Complete learning assessment and assess knowledge base 2. Provide teaching at level of understanding 3. Provide teaching via preferred learning method(s) 01/14/2025214 by CHRISTOS Hubbard Outcome: Progressing Note: Evaluation of progress towards goal: Plan of care reviewed, no questions/concerns voiced. Allinterventions explained prior to initiating. 01/14/2025209 by CHRISTOS Hubbard Outcome: Progressing Note: Evaluation of progress towards goal: Plan of care reviewed, no questions/concerns voiced. Allinterventions explained prior to initiating. * Plan of Care - Haydee Coleman RN - 01/14/2025 2:11 AM EDT Problem: Pain Goal: Patient goal is pain score less than 4, able to rest, and participant in treatment plan as appropriate Description: INTERVENTIONS: 1. Encourage patient or legal dental detail representative to report early pain and ask for pain medicine when needed 2. Assess pain using appropriate pain scale and include the scale used when documenting 3. Administer analgesics based on type and severity of pain and evaluate response within appropriate time frame 4. Implement non-pharmacological measures as appropriate and evaluate response 5. Consider cultural and social influences on pain and pain management 6. Notify LIP if interventions ineffective or patient reports new pain 7. Monitor vital signs including pulse ox, end-tidal CO2 based on pain intervention 8. Reassess pain per policy 9. Teach patient or legal dental detail representative interventions for comforting Outcome: Progressing Note: Evaluation of progress towards goal: Denies pain, except to scrotal area with movement/ touch. Denies need for pain medication. Problem: Safety Goal: Patient will be injury free during hospitalization Description: INTERVENTIONS: 1. Assess patient's risk for falls and implement fall prevention plan of care per policy 2. Provide and maintain a safe environment 3. Proper use of double Identifiers 4. Medication administration using the 5 rights 5. Hand hygiene 6. Specimens are labeled at the bedside 7. Instruct patient/ patient dental detail representative about use of safety devices 8. Include patient/ patient dental detail representative in decisions related to safety Outcome: Progressing Note: Evaluation of progress towards goal: Remains free from injury. Safety precautions maintained. Problem: Knowledge Deficit Goal: Patient/patient dental detail representative demonstrates understanding of disease process, treatment plan,medications, and discharge instructions Description: INTERVENTIONS 1. Complete learning assessment and assess knowledge base 2. Provide teaching at level of understanding 3. Provide teaching via preferred learning method(s) Outcome: Progressing Note: Evaluation of progress towards goal: Plan of care reviewed, no questions/concerns voiced. Allinterventions explained prior to initiating. * Plan of Care - Tricia Sierra RN - 01/13/2025 4:09 PM EDT Problem: Pain Goal: Patient goal is pain score less than 4, able to rest, and participant in treatment plan as appropriate Description: INTERVENTIONS: 1. Encourage patient or legal dental detail representative to report early pain and ask for pain medicine when needed 2. Assess pain using appropriate pain scale and include the scale used when documenting 3. Administer analgesics based on type and severity of pain and evaluate response within appropriate time frame 4. Implement non-pharmacological measures as appropriate and evaluate response 5. Consider cultural and social influences on pain and pain management 6. Notify LIP if interventions ineffective or patient reports new pain 7. Monitor vital signs including pulse ox, end-tidal CO2 based on pain intervention 8. Reassess pain per policy 9. Teach patient or legal dental detail representative interventions for comforting Outcome: Progressing Note: Evaluation of progress towards goal: Pt able to report pain according to 0/10 pain scale. Medicating patient for pain per orders. Problem: Safety Goal: Patient will be injury free during hospitalization Description: INTERVENTIONS: 1. Assess patient's risk for falls and implement fall prevention plan of care per policy 2. Provide and maintain a safe environment 3. Proper use of double Identifiers 4. Medication administration using the 5 rights 5. Hand hygiene 6. Specimens are labeled at the bedside 7. Instruct patient/ patient dental detail representative about use of safety devices 8. Include patient/ patient dental detail representative in decisions related to safety Outcome: Progressing Note: Evaluation of progress towards goal: Pt remains free from falls or accidental injury during stay. Fall prevention measures in place. Hourly rounding per RN and NA maintained. * Discharge Planning Note - Kumar Almazan - 01/13/2025 3:54 PM EDT DISCHARGE PLANNING NOTE [facility] [address] [address] P# Monday February 10, 2025 @ 9:45am * Discharge Planning Note - Shima Diego RN - 01/13/2025 11:47 AM EDT Images from the original note were not included. Discharge Planning Assessment [facility] Admit Status: Inpatient Meet: Yes Readmission Risk: 16%. Date of Admission: 01/12/2025 GMLOS: 2.1 days Target Discharge Date: 01/14/2025 Discharge Planning Assessment completed at bedside. Head Of Transport Logistics identified self and role to the patient.Patient is agreeable to the assessment and discussion of a safe discharge plan. Initial Assessment Flowsheet Row Most Recent Value Patient Information Initial Pre-Hospitalization Assessment Completed? Completed Primary Caregiver Self Support System Family Members, Neighbors [States his neighbors son is the one who found him on the floor. He has several nieces and nephews.] Discharge Planning Living Arrangements Alone Assistance Needed Patient is normally independent with mobility and ADL's. He does his own cooking and cleaning. He does have his lawn work hired out through private pay. He states he lives in a two story apartment that he owns, but lives on the first floor. He stated normally he drives and is ableto care for himself but started to not feel well a few days ago and just waited too long. Stated he laid on the floor for 4 hours before his neighbor heard him calling for help and pounding on his door. He currently has no DME. He said that he will consider if he might need a walker at discharge. Stated though that his family/sisters may have one stored in his spare garage. Type of Residence Apartment [He owns two story apartment and he lives on first floor.] Private Residence 2 story Can patient reside on one level? Yes Residence Accessibility Bathroom location?, Steps into home Bathroom Location Main level Number of Steps 4 Home Care Services No Community Agencies Currently Utilized None Community Referrals / Resources Provided Denies needs Does The Patient Have Existing Home DME? No Will the patient need DME at discharge? No, the patient has no home DME needs currently Stressors Income Information Income Information Retired/Pension/Social Security IP Hunger/Food Insecurity Screening Within the past 12 months we worried whether our food would run out before we got money to buy more. Never True Within the past 12 months the food we bought just didn't last and we didn't have money to get more.Never True Hunger Screening Complete? Yes Pt. Eligible for Food / Voucher No If Eligible: Received Food Box Not Offered to Patient Warm Handoff Complete Caregiver/Family Member Caregiver/Support System Limitations Caregiver/Support Systems Limitations (Check All That Apply) No Caregiver Needed Patient/Caregiver Goals Community Provider Referral Services Requested Patient expects to be discharged to: Home with self care and pending clinical course and clinical progress Does the patient wish to have family/friend/caregiver involved in their discharge planning? No, thepatient does not wish to have family/friend/caregiver involved in their discharge planning Discharge Disposition Home with self care Does the patient need discharge transportation arranged? No Patient choice offered Other (comment) [N/A] Pharmacy: [facility] PCP: No PCP. States he doesn't need one. Stated he had three PCP int he past and every time he had a problem they told him to come to ER so he decided he would see his silverware assembler but does not want to see a primary provided any longer. Consulting Providers this admission: Patient will make his own follow up appointments: yes Patient Goals: Goals Home with self care (pt-stated) Evaluation of progress towards goal: Pending clinical course and clinical progress. Patient does not endorse any questions at this time. Patient Discharge Plan: Home pending clinical course and self care. Follow up as below: Refuses PCP appointments. [facility] ([facility]) in 2-3 weeks. Tasked to transition center. Care navigation to follow for possible general surgery appointment need. - Shima Diego RN 01/13/25 11:52 AM * Plan of Care - Bryon Gifford RPH - 01/13/2025 10:13 AM EDT Problem: Medication Description: If medication is necessary, use low-risk medication that does not interfere with what matters to the older adult patient, mobility, or mentation across settings of care. Goal: Patient will be screened for high-risk medications once per stay Description: Interventions: 1. Pharmacist to perform medication review to screen for high-risk medications 2. Pharmacist to identify high-risk medications in the Plan of Care note 3. Pharmacist to make recommendations for follow-up in the Plan of Care note, if warranted Outcome: Completed Note: Medications individually and in combination may interfere with What Matters, Mentation, and safe Mobility because of the increased risk of confusion, delirium, unsteadiness and falls. Profile review indicates this patients has active orders for no high risk medications. Chart review also shows no change in renal function. * Plan of Care - Ruthie Jernigan RN - 01/13/2025 4:26 AM EDT Problem: Pain Goal: Patient goal is pain score less than 4, able to rest, and participant in treatment plan as appropriate Description: INTERVENTIONS: 1. Encourage patient or legal dental detail representative to report early pain and ask for pain medicine when needed 2. Assess pain using appropriate pain scale and include the scale used when documenting 3. Administer analgesics based on type and severity of pain and evaluate response within appropriate time frame 4. Implement non-pharmacological measures as appropriate and evaluate response 5. Consider cultural and social influences on pain and pain management 6. Notify LIP if interventions ineffective or patient reports new pain 7. Monitor vital signs including pulse ox, end-tidal CO2 based on pain intervention 8. Reassess pain per policy 9. Teach patient or legal dental detail representative interventions for comforting Outcome: Progressing Note: Evaluation of progress towards goal: Pain assessed using appropriate pain scale and include the scale used when documenting. Administered analgesics based on type and severity of pain and evaluate response within appropriate time frame. Implemented non-pharmacological measures as appropriate and evaluate response. Problem: Safety Goal: Patient will be injury free during hospitalization Description: INTERVENTIONS: 1. Assess patient's risk for falls and implement fall prevention plan of care per policy 2. Provide and maintain a safe environment 3. Proper use of double Identifiers 4. Medication administration using the 5 rights 5. Hand hygiene 6. Specimens are labeled at the bedside 7. Instruct patient/ patient dental detail representative about use of safety devices 8. Include patient/ patient dental detail representative in decisions related to safety Outcome: Progressing Note: Evaluation of progress towards goal: Assessed patient's risk for falls and implemented fall prevention plan of care per protocol. Provided and maintained a safe environment. Used proper use of double Identifiers Problem: Infection Goal: Absence of infection during hospitalization Description: INTERVENTIONS 1. Assess and monitor for signs and symptoms of infection. 2. Monitor lab/diagnostic results. 3. Monitor all insertion sites i.e., indwelling lines, tubes and drains. 4. Monitor endotracheal (as able) and nasal secretions for changes in amount and color. 5. Administer medications as ordered. 6. Instruct and encourage patient and family to use good hand hygiene technique. 7. Identify and instruct patient/patient dental detail representative in use of appropriate isolation precautionsfor identified infection/symptoms. 8. Provide and discuss with patient/patient dental detail representative on educational MDRO sheet. 9. Encourage and monitor nutritional status daily and consult associate professor of radiology if indicated. 10. Implement neutropenic guidelines as needed. Outcome: Progressing Note: Evaluation of progress towards goal: Isolation precautions followed per protocol. Equipment cleaned between patients. Handwashing protocol followed. Problem: Knowledge Deficit Goal: Patient/patient dental detail representative demonstrates understanding of disease process, treatment plan,medications, and discharge instructions Description: INTERVENTIONS 1. Complete learning assessment and assess knowledge base 2. Provide teaching at level of understanding 3. Provide teaching via preferred learning method(s) Outcome: Progressing Note: Evaluation of progress towards goal: Plan of care discussed with pt throughout shift. Updatedon all orders and changes. Verbalizes understanding and all questions/concerns addressed. Problem: Discharge Planning Goal: Discharge to post-acute care, other facility, or home with appropriate resources Description: Patient's goal is: INTERVENTIONS 1. Conduct assessment to determine patient/family and health care team treatment goals, and need for post-acute services based on payer coverage, community resources, and patient preferences, and barriers to discharge 2. Coordinate with Social work, Care Navigation, and Utilization Review to arrange appropriate level of services according to patient's needs based on patient preference and payer coverage in collaboration with the physician and health care team 3. Address psychosocial, clinical, and financial barriers to discharge as identified in assessment in conjunction with the patient/family and health care team 4. Consult appropriate ancillary services (i.e.. PT/OT/ST, etc) as needed 5. Communicate with and update the patient/family, physician, and health care team regarding progress on the discharge plan 6. Identify discharge learning needs (meds, wound care, etc). 7. Arrange for needed discharge transportation as appropriate Outcome: Progressing Note: Evaluation of progress towards goal: Conducted assessment to determine patient/family and health care team treatment goals, and need for post-acute services based on payer coverage, community resources, and patient preferences, and barriers to discharge. Problem: Neurological Deficit Goal: Neurological status is stable or improving Description: Patient's goal is: INTERVENTIONS 1. Complete Neurological assessment as indicated/ordered 2. Initiate measures to prevent increased intracranial pressure 3. Monitor and assess patient's level of consciousness, motor function, sensory function, and levelof assistance needed for ADLs 4. Monitor and report changes from baseline 5. Maintain blood pressure and fluid volume within ordered parameters to optimize cerebral perfusion and minimize risk of hemorrhage 6. Monitor labs and diagnostic tests 7. Administer anti-seizure medications as ordered 8. Maintain airway, patient safety and administer oxygen as ordered 9. Monitor patient for seizure activity, document and report duration and description of seizure toLIP 10. If seizure occurs, turn patient to side and suction secretions as needed 11. Reorient patient post seizure 12. Seizure pads on all 4 side rails 13. Instruct patient/family to notify RN of any seizure activity 14. Instruct patient/family to call for assistance with activity based on assessment 15. Utilize bleeding precautions if thrombolytic given Outcome: Progressing Note: Evaluation of progress towards goal: 1. Completed Neurological assessment as indicated/ordered 2. Initiated measures to prevent increased intracranial pressure 3. Monitored and assess patient'slevel of consciousness, motor function, sensory function, and level of assistance needed for ADLs 4. Monitored and report changes from baseline 5. Maintained blood pressure and fluid volume within ordered parameters to optimize cerebral perfusion and minimize risk of hemorrhage 6. Monitored labs and diagnostic tests 7. Administered anti-seizure medications as ordered 8. Maintained airway, patientsafety and administer oxygen as ordered 9. Monitored patient for seizure activity, documented and reported duration and description of seizure Problem: Activity Intolerance/Impaired Mobility Goal: Mobility/activity is maintained at optimum level for patient Description: Patient's goal is: INTERVENTIONS 1. Assess and monitor patient barriers to mobility and need for assistive/adaptive devices 2. Assess patient's emotional response to limitations 3. Collaborate with interdisciplinary teams and initiate plans and interventions as ordered 4. Encourage independent activity per tolerance 5. Maintain proper body alignment 6. Perform active/passive ROM as tolerated/ordered 7. Coordinate activities to conserve energy 8. Reposition patient 9. Ensure adequate rest/sleep time Outcome: Progressing Note: Evaluation of progress towards goal: 1.Assessed and monitored patient barriers to mobility and need for assistive/adaptive devices 2. Assessed patient's emotional response to limitations 3. Collaborated with interdisciplinary teams and initiate plans and interventions as ordered 4. Encouragedindependent activity per tolerance Problem: Communication Impairment Goal: Ability to express needs and understand communication Description: INTERVENTIONS 1. Assess patient's communication skills and ability to understand information 2. Provide alternate method of communication if needed i.e. ipad, sign board, pen/paper 3. Collaborate with Speech Therapy to develop effective communication strategies 4. Include patient/patient dental detail representative in decisions related to communication Outcome: Progressing Note: Evaluation of progress towards goal: 1. Assessed patient's communication skills and ability to understand information 2. Provided alternate method of communication if needed i.e. ipad, sign board, pen/paper 3. Collaborated with Speech Therapy to develop effective communication strategies 4. Included patient/patient dental detail representative in decisions related to communication Problem: Potential for Aspiration Goal: Patient's risk of aspiration is minimized Description: INTERVENTIONS 1. Assess and monitor vital signs, respiratory status, and labs (WBC) 2. Monitor for signs of aspiration (tachypnea, cough, rales, wheezing, cyanosis, fever) 3. Assess and monitor patient's ability to swallow 4. Place patient up in chair to eat if possible 5. Elevate head of bed 90 degrees to eat if unable to get patient up into chair 6. Supervise patient during oral intake 7. Instruct patient to take small bites 8. Instruct patient to take small single sips when taking liquids 9. Follow patient-specific strategies generated by speech pathologist 10. Complete bedside swallow screen if appropriate and take actions as indicated. 11. Administer prescribed medications and monitor effects Outcome: Progressing Note: Evaluation of progress towards goal: 1. Assessed and monitored vital signs, respiratory status, and labs (WBC) 2. Monitored for signs of aspiration (tachypnea, cough, rales, wheezing, cyanosis,fever) 3. Assessed and monitored patient's ability to swallow 4. Placed patient up in chair to eat if possible 5. Elevated head of bed 90 degrees to eat if unable to get patient up into chair Problem: Anxiety Goal: Anxiety is at manageable level Description: Patient's goal is: INTERVENTIONS 1. Assess and monitor patient's anxiety level 2. Monitor for signs and symptoms of anxiety both physical and emotional (heart palpitations, chestpain, shortness of breath, headaches, nausea, feeling jumpy, restlessness, irritable, apprehensive) 3. Reorient/orient patient to unit/surroundings 4. Explain treatment plan 5. Explain tests/procedures prior to initiation 6. Encourage participation in care 7. Encourage verbalization of concerns/fears 8. Assess coping mechanisms 9. Assist in developing anxiety-reducing skills 10. Administer complimentary therapies 11. Manage patient's environment 12. Limit or eliminate stimulants such as caffeine and nicotine 13. Collaborate with ancillary departments 14. Include patient/patient dental detail representative in decisions related to anxiety Outcome: Progressing Note: Evaluation of progress towards goal: 1. Assessed and monitored patient's anxiety level 2. Monitored for signs and symptoms of anxiety both physical and emotional (heart palpitations, chest pain, shortness of breath, headaches, nausea, feeling jumpy, restlessness, irritable, apprehensive) 3. Re oriented/oriented patient to unit/surroundings 4. Explained treatment plan 5. Explained tests/procedures prior to initiation Problem: Inadequate Coping Goal: Demonstrates and verbalizes ability to cope effectively Description: Patient's goal is: INTERVENTIONS 1. Patient is able to verbalize feelings related to emotional state 2. Encourage verbalization of feelings, perceptions, fears, stressors, loss of loved ones 3. Encourage verbalization of problems out of their control 4. Encourage participation in care and self management 5. Inform patient of all treatment/care prior to providing care 6. Collaborate with pastoral/spiritual care, social scientist, mental health counselor as needed. 7. Instruct patient on diversional activities such as physical activity, distraction, and deep breathing exercises to assist with coping 8. Involve patient's dental detail representative in care Outcome: Progressing Note: Evaluation of progress towards goal: 1. Patient is able to verbalize feelings related to emotional state 2. Encouraged verbalization of feelings, perceptions, fears, stressors, loss of loved ones 3. Encouraged verbalization of problems out of their control 4. Encouraged participation in care and self management 5. Informed patient of all treatment/care prior to providing care 6. Collaborated with pastoral/spiritual care, social scientist, mental health counselor as needed. 7. Instructed patient on diversional activities such as physical activity, distraction, and deep breathing exercisesto assist with coping 8. Involved patient's dental detail representative in care Problem: Potential for Compromised Skin Integrity Goal: Skin integrity is maintained or improved Description: Patient's goal is: INTERVENTIONS 1. Perform initial skin assessment on admission and as needed 2. Turn patient every 2 hours and PRN 3. Relieve pressure to bony prominences 4. Avoid shearing 5. Keep skin clean and dry 6. Alternate a full bath with partial baths for elderly 7. Apply lotion/moisturizer on skin 8. Monitor patient's hygiene practices 9. Float heels 10. Collaborate with interdisciplinary team and initiate plans and interventions as needed Outcome: Progressing Note: Evaluation of progress towards goal: Performed initial skin assessment on admission and as needed. Turned patient every 2 hours and PRN. Relieved pressure to bony prominences. Avoided shearing.Kept skin clean and dry. Goal: Patient's nutritional intake is adequate Description: Patient's goal is: INTERVENTIONS 1. Assess and monitor food intake and supplements, patient food preferences, nausea, vomiting, labs, oral cavity (gums, teeth, tongue, mucosa), proper denture fit, and cultural beliefs 2. Monitor for signs of hypoglycemia and hyperglycemia 3. Collaborate with interdisciplinary team and initiate plan and interventions as ordered 4. Monitor patient's weight 5. Assist patient with meals/food selection 6. Assist patient with eating 7. Allow adequate time for meals 8. Provide pleasant environment during mealtime 9. Increase social contact during mealtimes 10. Plan activities to conserve energy 11. Encourage/perform oral hygiene as appropriate 12. Encourage patient to take dietary supplement as ordered 13. Collaborate with clinical associate professor of radiology 14. Include patient/ patient's dental detail representative in decisions related to nutrition Outcome: Progressing Note: Evaluation of progress towards goal: 1. Assessed and monitor food intake and supplements, patient food preferences, nausea, vomiting, labs, oral cavity (gums, teeth, tongue, mucosa), proper denture fit, and cultural beliefs 2. Monitored for signs of hypoglycemia and hyperglycemia 3. Collaborated with interdisciplinary team and initiate plan and interventions as ordered 4. Monitored patient's weight 5. Assisted patient with meals/food selection 6. Assisted patient with eating 7. Allowed adequatetime for meals 8. Provided pleasant environment during mealtime 9. Increased social contact during m ealtimes 10. Planned activities to conserve energy 11. Encouraged/performed oral hygiene as appropriate 12. Encouraged patient to take dietary supplement as ordered 13. Collaborated with clinical associate professor of radiology 14. Included patient/ patient's dental detail representative in decisions related to nutrition Problem: Potential for Inadequate Tissue Perfusion - Venous Goal: Tissue perfusion is adequate - venous Description: Patient's goal is: INTERVENTIONS 1. Assess and monitor skin color and temperature, skin integrity, pulses, capillary refill, edema, pain in extremities and Homans' sign 2. Monitor for signs and symptoms (dyspnea, tachypnea, and tachycardia) 3. Encourage ambulation/activity per patient's tolerance and physician order 4. Elevate feet when in chair 5. Encourage patient to do ankle pump exercises 6. Apply anti-embolism stockings/devices as ordered Outcome: Progressing Note: Evaluation of progress towards goal: 1. Assessed and monitored skin color and temperature, skin integrity, pulses, capillary refill, edema, pain in extremities and Homans' sign 2. Monitored forsigns and symptoms (dyspnea, tachypnea, and tachycardia) 3. Encouraged ambulation/activity per patient's tolerance and physician order 4. Elevated feet when in chair 5. Encouraged patient to do anklepump exercises 6. Applied anti-embolism stockings/devices as ordered Problem: Self Care Deficit Goal: Return ADL status to a safe level of function Description: Patient's goal is: INTERVENTIONS 1. Administer medication as ordered 2. Assess ADL deficits and provide assistive devices as needed 3. Obtain PT/OT consults as needed 4. Assist and instruct patient to increase activity and self care as tolerated Outcome: Progressing Note: Evaluation of progress towards goal: 1. Administered medication as ordered 2. Assess ADL deficits and provided assistive devices as needed 3. Obtain PT/OT consults as needed 4. Assisted and instructed patient to increase activity and self care as tolerated Problem: Moderate - High Risk Fall Score Description: Blue Fall Score of =/> 25 or indicated by [facility] Assessment Goal: Patient should be free from fall Description: Interventions: 1. [place] to environment 2. Hourly rounds addressing the 4 P's (Pain, Positioning, Possessions, Potty) 3. Clear area of hazards (spills, clutter, electrical cords, unnecessary equipment) 4. Place equipment (bed & TV controls, call light, phone, urinal) within reach 5. Encourage patient to wear glasses and hearing aides as appropriate 6. Maintain bed in lowest position 7. Lock wheels on bed/wheelchair 8. Provide adequate lighting, including night light 9. Assess need for additional bedding, food/fluids, pain med's prior to sleep/routinely 10. Provide gripper slippers or personal non-skid footwear 11. Teach patient and patient dental detail representative to maintain environment for safety and engage in all aspects of fall prevention program 12. Remind patient to call for help before getting out of bed 13. Initiate bed/chair/exit alarms supportive devices as appropriate, (chair wedge, no-skid floor mat, raised edge mattress, hip protectors) 14. Locate patient bed assignment for optimal visualization 15. Evaluate and identify Safe Patient Handling Equipment needs 16. Provide supervision when out of bed or chair 17. Utilize gait belt as needed to assist with ambulation 18. Place adaptive equipment (cane, walker) within reach 19. Request patient dental detail representative bring adaptive equipment/mobility aids from home or obtain and provide as needed 20. Consult pharmacy regarding effects of med's affecting mobility, cognition, and alternatives 21. Obtain physician order for PT if risk factors associated with mobility are present 22. Obtain physician order for OT as appropriate 23. Utilize diversional activities 24. Educate patient and patient dental detail representative how to maintain a safe environment during visitationtimes (notify nurse prior to leaving bedside) 25. Consider appropriateness of medical or non-medical instrument technician 26. Set up voiding schedule as appropriate (every 2 hours) Outcome: Progressing Note: Evaluation of progress towards goal: Preformed hourly rounds addressing the 4 P's (Pain, Positioning, Possessions, Potty). Cleared area of hazards (spills, clutter, electrical cords, unnecessary equipment). documented in this encounter Plan of Treatment Upcoming Encounters Date Type Department Care Team (Late st Contact Info) Description 02/11/2025 10:15 AM EDT Office Visit [facility] [address] [place] [address] Kerrie Seals, DUMP TRUCK OPERATOR-EDI ARCHITECT [address] [place] [address] 03/10/2025 2:30 PM EDT Office Visit [facility] [address] [place] [id number] Dar Gaines MD [address] [place] [address] Pending Results Name Type Priority Associated Diagnoses Date /Time Surgical Pathology Pathology and Cytology Routine 01/14/2025 10:04 AM EDT Scheduled Orders Name Type Priority Associated Diagnoses Order Schedule Surgical Pathology Pathology and Cytology Routine Release Upon Ordering for 1 Occurrences starting 01/14/2025, 1 completed documented as of this encounter Procedures Procedure Name Priority Date/Time Associated Diagnosis Comments BLOOD CULTURE STAT 01/14/2025 1:28 PM EDT BLOOD GAS, ARTERIAL Routine 01/14/2025 1 :20 PM EDT XR CHEST 1 VW Routine 01/14/2025 1:09 PM EDT CBC WITH AUTO DIFFERENTIAL STAT 01/14/2025 12:53 PM EDT BLOOD CULTURE STAT 01/14/2025 12:53 PM EDT LACTATE W/ REFLEX Add-On 01/14/2025 12: 52 PM EDT COMPREHENSIVE METABOLIC PANEL STAT Add-on 01/14/2025 12:52 PM EDT BLOOD GAS, ARTERIAL Routine 01/14/2025 1 0:38 AM EDT ASPIRATE CULTURE INCLUDES GRAM STAIN Routine 01/14/2025 10:12 AM EDT ANAEROBIC CULTURE Routine 01/14/2025 10: 12 AM EDT RI COLOSTOMY 01/14/2025 9:03 AM EDT incarcerated left inguinal hernia ORCHIECTOMY 01/14/2025 9:03 AM EDT incarcerated left inguinal hernia REPAIR HERNIA INGUINAL 9:03 AM EDT incarcerated left inguinal hernia TYPE AND SCREEN STAT 01/14/2025 8:54 AM EDT CBC WITH AUTO DIFFERENTIAL Routine 01/14/2025 4:25 AM EDT MAGNESIUM Routine 01/14/2025 4:25 AM EDT COMPREHENSIVE METABOLIC PANEL Routine 01/14/2025 4:25 AM EDT LACTATE Routine 01/13/2025 5:02 PM EDT ECHO COMPLETE WO CONTRAST Routine 01/13/2025 4:26 PM EDT US RETROPERITONEAL COMPLETE Routine 01/13/2025 2:58 PM EDT LACTATE W/ REFLEX Routine 01/13/2025 1:3 2 PM EDT POTASSIUM Routine 01/13/2025 1:32 PM EDT MAGNESIUM Routine 01/13/2025 1:32 PM EDT EXTRA TUBES SST TOP Routine 01/13/2025 1 :31 PM EDT EXTRA TUBES Routine 01/13/2025 1:31 PM EDT XR CHEST 1 VW STAT 01/13/2025 11:40 AM EDT US SCROTUM Routine 01/13/2025 11:23 AM EDT ER EXTRA URINE MARBLE STAT 01/13/2025 6:55 AM EDT ER EXTRA URINE CULTURE STAT 6:55 AM EDT ER EXTRA URINE STAT 01/13/2025 6:55 AM EDT URINALYSIS Add-On 01/13/2025 6:55 AM EDT THYROID PROFILE INCLUDES TSH FT4 Add-On 01/13/2025 4:37 AM EDT CBC WITH AUTO DIFFERENTIAL Routine 01/13/2025 4:37 AM EDT MYOGLOBIN, SERUM Routine 01/13/2025 4:37 AM EDT MAGNESIUM Routine 01/13/2025 4:37 AM EDT CK TOTAL Routine 01/13/2025 4:37 AM EDT COMPREHENSIVE METABOLIC PANEL Routine 01/13/2025 4:37 AM EDT LACTATE STAT 01/12/2025 8:50 PM EDT XR CHEST 1 VW STAT 01/12/2025 7:17 PM EDT TROP I, HIGH SENSITIVITY 1 HOUR STAT 01/12/2025 6:29 PM EDT BLOOD CULTURE STAT 01/12/2025 6:[address] BRAIN WO CONT STAT 01/12/2025 6:04 PM EDT LACTATE W/ REFLEX STAT 01/12/2025 5:2 3 PM EDT BLOOD CULTURE STAT 01/12/2025 5:23 PM EDT SARS/FLU A+B/RSV BY NAAT/MOLECULAR (M4RT COLLECTION TUBE) STAT 01/12/2025 5:12 PM EDT TROPONIN I, HIGH SENSITIVITY 0 HOUR STAT 01/12/2025 5:11 PM EDT TROPONIN I, HIGH SENSITIVITY 0 HOUR STAT 01/12/2025 5:11 PM EDT PROCALCITONIN Add-On 01/12/2025 5:11 PM EDT CBC WITH AUTO DIFFERENTIAL STAT 01/12/2025 5:11 PM EDT APTT STAT 01/12/2025 5:11 PM EDT PROTIME & INR STAT 01/12/2025 5:11 PM EDT D-DIMER STAT 01/12/2025 5:11 PM EDT B-TYPE NATRIURETIC PEPTIDE STAT 01/12/2025 5:11 PM EDT MAGNESIUM STAT 01/12/2025 5:11 PM EDT CK TOTAL STAT 01/12/2025 5:11 PM EDT COMPREHENSIVE METABOLIC PANEL STAT 01/12/2025 5:11 PM EDT ECG 12-LEAD STAT 01/12/2025 4:46 PM EDT documented in this encounter Results * Blood culture #1 (01/14/2025 1:28 PM EDT) CULTURE RESULTS NO GROWTH 5 DAYS 01/19/2025 7:01 PM EDT [facility] Blood Venous blood / Unknown Venipuncture / Unknown 01/14/2025 1:28 PM EDT 01/14/2025 1:57 PM EDT Ralph Tamayo MD MICROBIOLOGY - GENERAL ORDERA BLES Final Result [facility] [address] [place] [address], [place] [phone] * (ABNORMAL) Blood Gas, Arterial (01/14/2025 1:20 PM EDT) Sample type ARTERIAL 01/14/2025 1:23 PM EDT [facility] pH, Arterial 7.329(L) 7.350 - 7.450 01/14/2025 1:23 PM EDT [facility] pCO2, Arterial 46.9(H) 35.0 - 45.0 mmHg 01/14/2025 1:23 PM EDT [facility] PO2, Arterial 99 80 - 100 mmHg 01/14/2025 1:23 PM EDT [facility] Base, Deficit -1.0(L) 0.0 - 2.0 mmol/L 01/14/2025 1:23 PM EDT [facility] HCO3, Arterial 24.7 22.0 - 26.0 mmol/L 01/14/2025 1:23 PM EDT [facility] %O2 Saturation, Arterial 97.0 >90.0 % 01/14/2025 1:23 PM EDT [facility] Temo's test N/A 01/14/2025 1:23 PM EDT [facility] SPO2 97 % 01/14/2025 1:23 PM EDT [facility] Sample site A Line 01/14/2025 1:23 PM EDT [facility] Insp. O2 conc. 40 % 01/14/2025 1:23 PM EDT [facility] Source Of Oxygen Vent 01/14/2025 1:23 PM EDT [facility] arterial (Blood, Arterial) 01/14/2025 1:20 PM EDT 01/14/2025 1:23 PM EDT us Ralph Tamayo MD LAB BLOOD ORDERABLES Final Re sult [facility] [address] [place] [place] [address], [place] * X-ray chest 1 view (01/14/2025 1:09 PM EDT) Anatomical Region Laterality Modality Body, Chest N/A Computed Radiogr aphy 01/14/2025 2:19 PM EDT Narrative 01/14/2025 2:20 PM EDT XR CHEST 1 VW History: Postop. Check lines and tubes One view study. Comparison: 01/13/2025 Impression: * Gastric drainage tube has been placed. The side-port is near the EG junction. For more optimal positioning please advance 5 cm. ET tube is visualized. The tip terminates just above the aortic knob. This is satisfactory in position. No other concerning change. No evidence of aspiration. No pneumothorax. No large effusion. Finalized by Marry Villareal MD on 01/14/2025 2:20 PM Procedure Note Marry Villareal MD - 01/14/2025 XR CHEST 1 VW History: Postop. Check lines and tubes One view study. Comparison: 01/13/2025 Impression: * Gastric drainage tube has been placed. The side-port is near the EGjunction. For more optimal positioning please advance 5 cm. ET tube isvisualized. The tip terminates just above the aortic knob. This issatisfactory in position. No other concerning change. No evidence ofaspiration. No pneumothorax. No large effusion. Finalized by Marry Villareal MD on 01/14/2025 2:20 PM Viviana Bruno DUMP TRUCK OPERATOR-EDI ARCHITECT IMG DIAGNOSTIC IMAGING OR DERABLES Final Result * (ABNORMAL) CBC auto differential (01/14/2025 12:53 PM EDT) WBC 13.3(H) 4 - 11 x10E9/L 01/14/2025 1:46 PM EDT [facility] RBC Count 3.32(L) 4.1 - 5.7 X10E12/L 01/14/2025 1:46 PM EDT [facility] Hemoglobin 10.5(L) 13 - 17 g/dL 01/14/2025 1:46 PM EDT [facility] Hematocrit 31.1(L) 39 - 50 % 01/14/2025 1:46 PM EDT [facility] MCV 94 80 - 100 fL 01/14/2025 1:46 PM EDT [facility] MCH 31.6 27 - 34 pg 01/14/2025 1:46 PM EDT [facility] MCHC 33.7 32 - 36 g/dL 01/14/2025 1:46 PM EDT [facility] RDW 14.0 11.5 - 15 % 01/14/2025 1:46 PM EDT [facility] Platelet Count 194 150 - 450 X10E9/L 01/14/2025 1:46 PM EDT [facility] MPV 10.0 7 - 12 fL 01/14/2025 1:46 PM EDT [facility] Bands % 17 % 01/14/2025 1:46 PM EDT [facility] Comment:This is an appended report. These results have been appended to a previously preliminary verified report. Neutrophils % 77 % 01/14/2025 1:46 PM EDT [facility] Comment:This is an appended report. These results have been appended to a previously preliminary verified report. Lymphocytes % 1 % 01/14/2025 1:46 PM EDT [facility] Comment:This is an appended report. These results have been appended to a previously preliminary verified report. Monocytes % 3 % 01/14/2025 1:46 PM EDT [facility] Comment:This is an appended report. These results have been appended to a previously preliminary verified report. Atypical Lymphs % 2 % 01/14/2025 1:46 PM EDT [facility] Comment:This is an appended report. These results have been appended to a previously preliminary verified report. Neutrophils Absolute (M) 12.5(H) 1.5 - 6.6 10*3/uL 01/14/2025 1:46 PM T [facility] Comment:This is an appended report. These results have been appended to a previously preliminary verified report. Lymphocytes Absolute 0.4(L) 1.0 - 3.5 10*3/uL 01/14/2025 1:46 PM EDT [facility] Comment:This is an appended report. These results have been appended to a previously preliminary verified report. Monocytes Absolute 0.4 0.0 - 0.9 10*3/uL 01/14/2025 1:46 PM EDT [facility] Comment:This is an appended report. These results have been appended to a previously preliminary verified report. RBC Morphology Reviewed 01/14/2025 1:46 PM T [facility] Comment:This is an appended report. These results have been appended to a previously preliminary verified report. Differential Type MANUAL DIFFERENTIAL 01/14/2025 1:46 PM T [facility] Comment:This is an appended report. These results have been appended to a previously preliminary verified report. Blood Venous blood / Unknown Venipuncture / Unknown 01/14/2025 12:53 PM EDT 01/14/2025 1:03 PM EDT Viviana Carr APRN-[facility] LAB BLOOD ORDERABLES Misty l Result Performing Organization Address City/[facility]/ZIP Co de Phone Number [address] [place] [address], [place] * Blood culture #2 (01/14/2025 12:53 PM EDT) CULTURE RESULTS NO GROWTH 5 DAYS 01/19/2025 7:01 PM EDT [facility] Blood Venous blood / Unknown Venipuncture / Unknown 01/14/2025 12:53 PM EDT 01/14/2025 1:03 PM EDT Ralph Tamayo MD MICROBIOLOGY - GENERAL ORDERA BLES Final Result Performing Organization Address [facility] Co de Phone Number [facility] [address] [place] [address], [place] [phone] * Lactate w/ Reflex (01/14/2025 12:52 PM EDT) LACTATE W/REFLEX 2.0 0.4 - 2.0 mmol/L 01/14/2025 1:21 PM EDT [facility] Blood Venous blood / Unknown Venipuncture / Unknown 01/14/2025 12:52 PM EDT 01/14/2025 1:03 PM EDT Narrative [facility] - 01/14/2025 1:21 PM EDT Result did not trigger repeat Lactate, re-order if needed. Viviana Carr APRN-[facility] LAB BLOOD ORDERABLES Misty l Result Performing Organization Address City/[facility] Co de Phone Number [address] [place] [address], [place] * (ABNORMAL) Comprehensive metabolic panel (01/14/2025 12:52 PM EDT) SODIUM 133(L) 134 - 146 mmol/L 01/14/2025 1:23 PM EDT [facility] POTASSIUM 4.6 3.5 - 5.0 mmol/L 01/14/2025 1:23 PM EDT [facility] CHLORIDE 99 98 - 109 mmol/L 01/14/2025 1:23 PM EDT [facility] CARBON DIOXIDE 24 22 - 32 mmol/L 01/14/2025 1:23 PM EDT [facility] ANION GAP 10 5 - 15 mmol/L 01/14/2025 1:23 PM EDT [facility] BLOOD UREA NITROGEN 42(H) 5 - 27 mg/dL 01/14/2025 1:23 PM EDT [facility] CREATININE 1.40(H) 0.70 - 1.20 mg/dL 01/14/2025 1:23 PM EDT [facility] Comment:METHOD TRACEABLE TO IDMS STANDARD GLUCOSE 130(H) 65 - 99 mg/dL 01/14/2025 1:23 PM EDT [facility] CALCIUM 8.3(L) 8.5 - 10.5 mg/dL 01/14/2025 1:23 PM EDT [facility] TOTAL PROTEIN 5.4(L) 6.0 - 8.0 g/dL 01/14/2025 1:23 PM EDT [facility] ALBUMIN 2.9(L) 3.2 - 5.3 g/dL 01/14/2025 1:23 PM EDT [facility] ALKALINE PHOSPHATASE 57 39 - 130 U/L 01/14/2025 1:23 PM EDT [facility] AST 48(H) <=41 U/L 01/14/2025 1:23 PM EDT [facility] ALT 38 <=40 U/L 01/14/2025 1:23 PM EDT [facility] BILIRUBIN,TOTAL 0.9 0.3 - 1.2 mg/dL 01/14/2025 1:23 PM EDT [facility] EGFR Non-Race Dependent 53(L) >=60 ml/min/1.7 3sq.m 01/14/2025 1:23 PM EDT [facility] Comment: eGFR not reported due to non-numeric value for Creatinine. EGFR not calculated due to patient's gender not being defined. Reported eGFR is based on the CKD-EPI 2020 equation that does not use a race coefficient. Blood Venous blood / Unknown Venipuncture / Unknown 01/14/2025 12:52 PM EDT 01/14/2025 1:03 PM EDT us Viviana Carr DUMP TRUCK OPERATOR-EDI ARCHITECT LAB BLOOD ORDERABLES Misty lunsford Result [facility] [address] [place] [place] [address], [place] * (ABNORMAL) Blood Gas, Arterial (01/14/2025 10:38 AM EDT) Sample type ARTERIAL 01/14/2025 10:44 AM EDT [facility] pH, Arterial 7.227(L) 7.350 - 7.450 01/14/2025 10:44 AM EDT [facility] pCO2, Arterial 58.4(H) 35.0 - 45.0 mmHg 01/14/2025 10:44 AM EDT [facility] PO2, Arterial 469(H) 80 - 100 mmHg 01/14/2025 10:44 AM EDT [facility] Base, Deficit -4.0(L) 0.0 - 2.0 mmol/L 01/14/2025 10:44 AM EDT [facility] HCO3, Arterial 24.3 22.0 - 26.0 mmol/L 01/14/2025 10:44 AM EDT [facility] %O2 Saturation, Arterial 100.0 >90.0 % 01/14/2025 10:44 AM EDT [facility] Temo's test N/A 01/14/2025 10:44 AM EDT [facility] SPO2 469 % 01/14/2025 10:44 AM EDT [facility] Sample site N/A 01/14/2025 10:44 AM EDT [facility] Source Of Oxygen Vent 01/14/2025 10:44 AM EDT [facility] arterial (Blood, Arterial) 01/14/2025 10:38 AM EDT 01/14/2025 10:44 AM EDT us Ralph Tamayo MD LAB BLOOD ORDERABLES Final Re sult [facility] [address] [place] [address], [place] * (ABNORMAL) Aspirate culture includes gram stain (01/14/2025 10:12 AM EDT) CULTURE RESULTS Rare Escherichia coli(A) 01/17/2025 11:34 AM EDT [facility] CULTURE RESULTS Rare Streptococcus gordonii(A) 01/17/2025 11:34 AM EDT [facility] CULTURE RESULTS Rare Edith utilis(A) 01/17/2025 11:34 AM EDT [facility] GRAM STAIN >25 White Blood Cells/LPF(A) 01/17/2025 11:34 AM EDT [facility] GRAM STAIN 0 Squamous Epithelial Cells/LPF(A) 01/17/2025 11:34 AM EDT [facility] GRAM STAIN Many Gram negative bacilli(A) 01/17/2025 11:34 AM EDT [facility] GRAM STAIN Many Gram positive coccobacilli(A) 01/17/2025 11:34 AM EDT [facility] Comment:Smear Reviewed, Resu lts Confirmed. Aspirate (Abdomen) 01/14/2025 10:12 AM EDT 01/14/2025 1:05 PM EDT Comment:Pre-op diagnosis: incarcerated left inguinal hernia Narrative Organism Antibiotic Method Susceptibility Escherichia coli Ampicillin 8.0: Susceptible Escherichia coli AMP/SULBACTAM <=2.0: Susceptible Escherichia coli PIPERACIL/TAZOBACTAM <=4.0: Susceptible Escherichia coli Cefazolin (non-urinary) <=1.0: Susceptible Escherichia coli Cefazolin (urinary) <=1.0: Susceptible Escherichia coli Ceftriaxone <=0.25: Susceptible Escherichia coli Gentamicin <=1.0: Susceptible Escherichia coli Ciprofloxacin <=0.06: Susceptible Escherichia coli Levofloxacin <=0.12: Susceptible Delmar Ramirez MD MICROBIOLOGY - GENERAL ORD ERABLES Final Result [facility] [address] [place] [address], * (ABNORMAL) Anaerobic culture (01/14/2025 10:12 AM EDT) CULTURE RESULTS Many Bacteroides fragilis(A) 01/19/2025 10:01 AM EDT [facility] CULTURE RESULTS Many Bacteroides ovatus/xylaniso lvens(A) 01/19/2025 10:01 AM EDT [facility] Aspirate (Abdomen) 01/14/2025 10:12 AM EDT 01/14/2025 1:05 PM EDT Comment:Pre-op diagnosis: incarcerated left inguinal hernia Delmar Ramirez MD MICROBIOLOGY - GENERAL ORD ERABLES Final Result Performing Organization Address City/[facility]/ZIP Co de Phone Number [facility] [address] [place] [address], [place] [phone] * Type and screen (Pre-op) (01/14/2025 8:54 AM EDT) ABO A 01/14/2025 12:25 PM EDT [facility] RH Positive 01/14/2025 12:25 PM EDT [facility] Antibody Screen Negative 01/14/2025 12:25 PM EDT [facility] Blood Venous blood / Unknown Venipuncture / Unknown 01/14/2025 8:54 AM EDT 01/14/2025 8:56 AM EDT us Reynaldo Juarez MD BLOOD BANK TEST ORDERABLES Ed ited Result - Final [facility] [address] [place] [address], [facility] [address] [place] [address], * (ABNORMAL) CBC auto differential (01/14/2025 4:25 AM EDT) WBC 32.8(H) 4 - 11 x10E9/L 01/14/2025 10:40 AM EDT [facility] RBC Count 4.23 4.1 - 5.7 X10E12/L 01/14/2025 10:40 AM EDT [facility] Hemoglobin 13.1 13 - 17 g/dL 01/14/2025 10:40 AM EDT [facility] Hematocrit 40.0 39 - 50 % 01/14/2025 10:40 AM EDT [facility] MCV 95 80 - 100 fL 01/14/2025 10:40 AM EDT [facility] MCH 30.9 27 - 34 pg 01/14/2025 10:40 AM EDT [facility] MCHC 32.7 32 - 36 g/dL 01/14/2025 10:40 AM EDT [facility] RDW 13.9 11.5 - 15 % 01/14/2025 10:40 AM EDT [facility] Platelet Count 331 150 - 450 X10E9/L 01/14/2025 10:40 AM EDT [facility] MPV 9.5 7 - 12 fL 01/14/2025 10:40 AM EDT [facility] Bands % 14 % 01/14/2025 10:40 AM EDT [facility] Comment:This is an appended report. These results have been appended to a previously preliminary verified report. Neutrophils % 82 % 01/14/2025 10:40 AM EDT [facility] Comment:This is an appended report. These results have been appended to a previously preliminary verified report. Lymphocytes % 1 % 01/14/2025 10:40 AM EDT [facility] Comment:This is an appended report. These results have been appended to a previously preliminary verified report. Monocytes % 3 % 01/14/2025 10:40 AM EDT [facility] Comment:This is an appended report. These results have been appended to a previously preliminary verified report. Neutrophils Absolute (M) 31.5(H) 1.5 - 6.6 10*3/uL 01/14/2025 10:40 AM T [facility] Comment:This is an appended report. These results have been appended to a previously preliminary verified report. Lymphocytes Absolute 0.3(L) 1.0 - 3.5 10*3/uL 01/14/2025 10:40 AM EDT [facility] Comment:This is an appended report. These results have been appended to a previously preliminary verified report. Monocytes Absolute 1.0(H) 0.0 - 0.9 10*3/uL 01/14/2025 10:40 AM EDT [facility] Comment:This is an appended report. These results have been appended to a previously preliminary verified report. RBC Morphology Reviewed 01/14/2025 10:40 AM T [facility] Comment:This is an appended report. These results have been appended to a previously preliminary verified report. Differential Type MANUAL DIFFERENTIAL 01/14/2025 10:40 AM T [facility] Comment:This is an appended report. These results have been appended to a previously preliminary verified report. Blood Venous blood / Unknown Venipuncture / Unknown 01/14/2025 4:25 AM EDT 01/14/2025 4:30 AM EDT us Abed Ramadan DUMP TRUCK OPERATOR-EDI ARCHITECT LAB BLOOD ORDERABLES Final Result [address] [place] [address], [place] * Magnesium (01/14/2025 4:25 AM EDT) MAGNESIUM 2.6 1.8 - 2.6 mg/dL 01/14/2025 4:50 AM EDT [facility] Blood Venous blood / Unknown Venipuncture / Unknown 01/14/2025 4:25 AM EDT 01/14/2025 4:30 AM EDT us Joan Estrada DUMP TRUCK OPERATOR-EDI ARCHITECT LAB BLOOD ORDERABLES Final Result Performing Organization Address City/[facility]/ZIP Co de Phone Number [address] [place] [address], [place] * (ABNORMAL) Comprehensive metabolic panel (01/14/2025 4:25 AM EDT) SODIUM 132(L) 134 - 146 mmol/L 01/14/2025 4:50 AM EDT [facility] POTASSIUM 4.5 3.5 - 5.0 mmol/L 01/14/2025 4:50 AM EDT [facility] CHLORIDE 96(L) 98 - 109 mmol/L 01/14/2025 4:50 AM EDT [facility] CARBON DIOXIDE 23 22 - 32 mmol/L 01/14/2025 4:50 AM EDT [facility] ANION GAP 13 5 - 15 mmol/L 01/14/2025 4:50 AM EDT [facility] BLOOD UREA NITROGEN 43(H) 5 - 27 mg/dL 01/14/2025 4:50 AM EDT [facility] CREATININE 1.80(H) 0.70 - 1.20 mg/dL 01/14/2025 4:50 AM EDT [facility] Comment:METHOD TRACEABLE TO IDMS STANDARD GLUCOSE 115(H) 65 - 99 mg/dL 01/14/2025 4:50 AM EDT [facility] CALCIUM 8.8 8.5 - 10.5 mg/dL 01/14/2025 4:50 AM EDT [facility] TOTAL PROTEIN 6.9 6.0 - 8.0 g/dL 01/14/2025 4:50 AM EDT [facility] ALBUMIN 2.9(L) 3.2 - 5.3 g/dL 01/14/2025 4:50 AM EDT [facility] ALKALINE PHOSPHATASE 84 39 - 130 U/L 01/14/2025 4:50 AM EDT [facility] AST 88(H) <=41 U/L 01/14/2025 4:50 AM EDT [facility] ALT 59(H) <=40 U/L 01/14/2025 4:50 AM EDT [facility] BILIRUBIN,TOTAL 0.7 0.3 - 1.2 mg/dL 01/14/2025 4:50 AM EDT [facility] EGFR Non-Race Dependent 39(L) >=60 ml/min/1.7 3sq.m 01/14/2025 4:50 AM EDT [facility] Comment: eGFR not reported due to non-numeric value for Creatinine. EGFR not calculated due to patient's gender not being defined. Reported eGFR is based on the CKD-EPI 2020 equation that does not use a race coefficient. Blood Venous blood / Unknown Venipuncture / Unknown 01/14/2025 4:25 AM EDT 01/14/2025 4:30 AM EDT us Abed Ramadan DUMP TRUCK OPERATOR-EDI ARCHITECT LAB BLOOD ORDERABLES Final Result [facility] [address] [place] [address], * Lactate (01/13/2025 5:02 PM EDT) LACTATE 1.7 0.4 - 2.0 mmol/L 01/13/2025 5:23 PM EDT [facility] Blood Venous blood / Unknown Venipuncture / Unknown 01/13/2025 5:02 PM EDT 01/13/2025 5:04 PM EDT us Viviana Carr DUMP TRUCK OPERATOR-EDI ARCHITECT LAB BLOOD ORDERABLES Misty l Result [facility] [address] [place] [address], [place] * Echo complete W/O contrast (01/13/2025 4:26 PM EDT) LVOT stroke volume 39.58 ml XCELERA LV Systolic Volume 31.90 mL XCELERA EF 61 % XCELERA FS 35 28 - 44 % XCELERA LV Diastolic Volume 82.00 mL XCELERA LVIDd 4.90 5.00 - 6.94 cm XCELERA LVIDs 3.20 2.94 - 4.45 cm XCELERA IVS 1.00 0.6 - 1.1 cm XCELERA PW 1.20 0.6 - 1.1 cm XCELERA LVOT diameter 2.00 cm XCELERA LA Volume Index 56.6 mL/m2 XCELERA E wave deceleration time 173.00 msec XCELERA MV Peak E Milo 90.70 cm/s XCELERA LA size 4.40 cm XCELERA Aortic root 3.80 cm XCELERA LA volume 113.00 cm3 XCELERA RV diastolic dimension (basal) 36.0 mm XCELERA RVID d 3.5 cm XCELERA AV peak milo 88.90 cm/s XCELERA LVOT peak milo 0.69 m/s XCELERA AV VTI 16.00 cm XCELERA LVOT peak VTI 12.60 cm XCELERA AV mean gradient 2.00 mmHg XCELERA AV peak gradient 3.16 mmHg XCELERA AV valve area 2.47 XCELERA Valve area - Index 1.2 XCELERA MV pressure 1/2 time 51.00 ms XCELERA MR max milo 4.89 m/s XCELERA MV valve area p 1/2 method 4.31 cm2 XCELERA TR Peak Milo 3.1 m/s XCELERA TR peak gradient 32.49 mmHg XCELERA PV mean gradient 2.00 mmHg XCELERA PV peak gradient 2.49 mmHg XCELERA LV ESV A2C 116.00 mL XCELERA LV ESV A4C 91.30 mL XCELERA MR VTI 119 cm XCELERA LV RWT 2D 48.98 XCELERA Echo EF Estimated 61 % XCELERA AV Velocity Ratio 0.79 XCELERA Left Ventricle Mass 200.97017 [id number] 8 g XCELERA Interventricular Septum Diastolic Thickness by 2D 10 cm XCELERA Est. RA pressure 8 mmHg XCELERA RA area 22.0 cm2 XCELERA RV Peak Systolic Pressure 46 mmHg XCELERA ZLVIDS -0.96 XCELERA ZLVIDD -1.84 XCELERA Energy loss index 22.56 XCELERA Anatomical Region Laterality Modality Chest N/A Ultrasound Narrative 01/14/2025 8:00 AM EDT Left Ventricle: Left ventricle appears normal in size. There is mild asymmetric increased wall thickness/hypertrophy. Systolic function is normal with an ejection fraction of 55-60%. The quantitative EF by 2D Mitchell biplane is 61%. No obvious regional wall motion abnormalities. Unable to assess diastolic function due to atrial fibrillation/flutter. Right Ventricle: Right ventricular size appears normal. The right ventricular basal diameter is 36.0 mm. Normal systolic excursion velocity by TDI (>9.5 cm/s). Tricuspid Valve: There is moderate regurgitation. There is no evidence of tricuspid valve stenosis. There is moderate pulmonary hypertension. Mitral Valve: The leaflets are moderately thickened. There is mild annular calcification. There is moderate regurgitation with a centrally directed jet. There is no evidence of mitral valve stenosis. Left Ventricle Left ventricle appears normal in size. There is mild asymmetric increased wall thickness/hypertrophy. Systolic function is normal with an ejection fraction of 55-60%. The quantitative EF by 2D Mitchell biplane is 61%. No obvious regional wall motion abnormalities. Unable to assess diastolic function due to atrial fibrillation/flutter. Right Ventricle Right ventricular size appears normal. The right ventricular basal diameter is 36.0 mm. Normal systolic excursion velocity by TDI (>9.5 cm/s). Left Atrium Left atrium volume index is severely increased. The left atrial volume index is 56.6 mL/m2. Right Atrium Right atrium is moderately dilated. The right atrial area is 22.0 cm2. IVC/SVC The right atrial pressure is estimated at 8 mmHg. IVC appears dilated with increased right atrial pressure. There is normal collapse with deep inspiration. Mitral Valve The leaflets are moderately thickened. There is mild annular calcification. There is moderate regurgitation with a centrally directed jet. There is no evidence of mitral valve stenosis. Tricuspid Valve Tricuspid valve appears to be normal. There is moderate regurgitation. There is no evidence of tricuspid valve stenosis. The right ventricular systolic pressure is moderately elevated. RVSP calculated at 46 mmHg. RVSP is based on RA pressure of 8 mmHg. There is moderate pulmonary hypertension. Aortic Valve The aortic valve is trileaflet. The leaflets exhibit focal thickening. There is no regurgitation or stenosis. Pulmonic Valve The pulmonic valve was not well visualized. There is no regurgitation or stenosis. The peak gradient is 2.49 mmHg. The mean gradient is 2.00 mmHg. Ascending Aorta The aortic root is dilated. (3.8) Pericardium The pericardium appears normal. Study Details A complete echo was performed using complete 2D, color flow Doppler and spectral Doppler. Overall the study quality was adequate. The study was difficult due to patient's heart rhythm. BP 103/63 Wall Scoring Baseline Score Index: 1.00 The left ventricular wall motion is normal. Viviana Carr DUMP TRUCK OPERATOR-EDI ARCHITECT CV ECHO ORDERABLES Final Result * Ultrasound retroperitoneal complete (01/13/2025 2:58 PM EDT) Anatomical Region Laterality Modality Body Ultrasound 01/13/2025 3:05 PM EDT Narrative 01/13/2025 3:08 PM EDT US RETROPERITONEAL COMPLETE HISTORY: Acute kidney injury COMPARISON: 09/05/2012 TECHNIQUE: Grayscale and color Doppler sonographic images of the urinary bladder and bilateral kidneys. FINDINGS: Right kidney: * 10.7 x 5.2 x 5.1 cm * Cortex: 0.9 cm. Normal echogenicity. * No hydronephrosis, mass, or calculi. Left kidney: * 9.3 x 5.4 x 5.0 cm * Cortex: 0.8 cm. Normal echogenicity. * No hydronephrosis, mass, or calculi. The urinary bladder is decompressed and incompletely evaluated. No prostatomegaly. IMPRESSION: Unremarkable ultrasound of the kidneys and urinary bladder. Finalized by Russell Brantley MD on 01/13/2025 3:08 PM Procedure Note Russell Brantley MD - 01/13/2025 US RETROPERITONEAL COMPLETE HISTORY: Acute kidney injury COMPARISON: 09/05/2012 TECHNIQUE: Grayscale and color Doppler sonographic images of the urinarybladder and bilateral kidneys. FINDINGS: Right kidney: * 10.7 x 5.2 x 5.1 cm * Cortex: 0.9 cm. Normal echogenicity. * No hydronephrosis, mass, or calculi. Left kidney: * 9.3 x 5.4 x 5.0 cm * Cortex: 0.8 cm. Normal echogenicity. * No hydronephrosis, mass, or calculi. The urinary bladder is decompressed and incompletely evaluated. Noprostatomegaly. IMPRESSION: Unremarkable ultrasound of the kidneys and urinary bladder. Finalized by Russell Brantley MD on 01/13/2025 3:08 PM Viviana Carr APRN-DYLAN IMG US ORDERABLES Final R esult * (ABNORMAL) Lactate w/ Reflex (01/13/2025 1:32 PM EDT) Pathologist [facility] LACTATE W/REFLEX 2.8(H) 0.4 - 2.0 mmol/L 01/13/2025 1:58 PM EDT [facility] Blood Venous blood / Unknown Venipuncture / Unknown 01/13/2025 1:32 PM EDT 01/13/2025 1:35 PM EDT Viviana Carr APRN-EDI ARCHITECT LAB BLOOD ORDERABLES Misty l Result [facility] [address] [place] [address], [place] * (ABNORMAL) Magnesium (01/13/2025 1:32 PM EDT) Pathologist [facility] MAGNESIUM 3.0(H) 1.8 - 2.6 mg/dL 01/13/2025 1:56 PM EDT [facility] Blood Venous blood / Unknown Venipuncture / Unknown 01/13/2025 1:32 PM EDT 01/13/2025 1:35 PM EDT us Ralph Tamayo MD LAB BLOOD ORDERABLES Final Re sult Performing Organization Address City/[facility]/ZIP Co de Phone Number [address] [place] [address], [place] * Potassium (01/13/2025 1:32 PM EDT) POTASSIUM 3.9 3.5 - 5.0 mmol/L 01/13/2025 1:54 PM EDT [facility] Blood Venous blood / Unknown Venipuncture / Unknown 01/13/2025 1:32 PM EDT 01/13/2025 1:35 PM EDT us Ralph Tamayo MD LAB BLOOD ORDERABLES Final Re sult Performing Organization Address [facility] Co de Phone Number [address] [place] [address], [place] * SST TOP (01/13/2025 1:31 PM EDT) Extra Tube Auto Resulted 01/13/2025 3:02 PM EDT [facility] Blood Venous blood / Unknown 01/13/2025 1:31 PM EDT 01/13/2025 1:35 PM EDT us Ralph Tamayo MD LAB BLOOD ORDERABLES Final Re sult Performing Organization Address City/[facility] Co de Phone Number [address] [place] [address], [place] * X-ray chest 1 view (01/13/2025 11:40 AM EDT) Anatomical Region Laterality Modality Body, Chest N/A Computed Radiogr aphy 01/13/2025 11:4 6 AM EDT Narrative 01/13/2025 11:48 AM EDT Portable single view chest dated 01/13/2025 at 11:34 AM INDICATION: Shortness of breath. FINDINGS: Comparison is 01/12/2025. Compromised due to portable technique. Emphysematous changes. Nodule in the left costophrenic angle is unchanged from multiple prior examination consistent with benign etiology. No edema or effusion. No pneumothorax. IMPRESSION: 1. Given the limitations of portable technique, no acute cardiopulmonary abnormality seen. 2. If symptoms persist consider PA and lateral chest in the radiology department. Finalized by Jose Luis Asif MD on 01/13/2025 11:48 AM Procedure Note Jose Luis Asif MD - 01/13/2025 Portable single view chest dated 01/13/2025 at 11:34 AM INDICATION: Shortness of breath. FINDINGS: Comparison is 01/12/2025. Compromised due to portable technique.Emphysematous changes. Nodule in the left costophrenic angle is unchangedfrom multiple prior examination consistent with benign etiology. No edemaor effusion. No pneumothorax. IMPRESSION: 1. Given the limitations of portable technique, no acute cardiopulmonaryabnormality seen. 2. If symptoms persist consider PA and lateral chest in the radiologydepartment. Finalized by Jose Luis Asif MD on 01/13/2025 11:48 AM Viviana Carr DUMP TRUCK OPERATOR-EDI ARCHITECT IMG DIAGNOSTIC IMAGING OR DERABLES Final Result * Ultrasound scrotum (01/13/2025 11:23 AM EDT) Anatomical Region Laterality Modality Body Ultrasound 01/13/2025 12:4 4 PM EDT Narrative 01/13/2025 12:45 PM EDT CLINICAL INFORMATION: testicular swelling. COMPARISON: None. PROCEDURE: Routine testicular ultrasound was obtained utilizing real-time grayscale and color-flow Doppler imaging. Duplex spectral Doppler waveforms obtained and reviewed. FINDINGS: Scrotal wall edema. The right testicle measures 3.2 x 2.7 x 1.3 cm. The left testicle measures 3.9 x 2.1 x 3.7 cm. No definite testicular mass. Tubular ectasia right rete testes. Small left hydrocele. Duplex spectral Doppler documents arterial and venous spectral waveforms within the major arterial inflow and venous outflow of both testicles. No definite torsion. There appears to be some bowel content in the scrotum. IMPRESSION: * No testicular mass or torsion, limited assessment right testicle due to overlapping structures. * Scrotal wall edema and possible herniated bowel into the scrotal sac, consider CT pelvis. Finalized by Jeb Luciano MD on 01/13/2025 12:45 PM Procedure Note Jeb Luciano MD - 01/13/2025 CLINICAL INFORMATION: testicular swelling. COMPARISON: None. PROCEDURE: Routine testicular ultrasound was obtained utilizing real- timegrayscale and color-flow Doppler imaging. Duplex spectral Dopplerwaveforms obtained and reviewed. FINDINGS: Scrotal wall edema. The right testicle measures 3.2 x 2.7 x 1.3 cm. The left testicle measures 3.9 x 2.1 x 3.7 cm. No definite testicular mass. Tubular ectasia right rete testes. Small lefthydrocele. Duplex spectral Doppler documents arterial and venous spectral waveformswithin the major arterial inflow and venous outflow of both testicles. Nodefinite torsion. There appears to be some bowel content in the scrotum. IMPRESSION: * No testicular mass or torsion, limited assessment right testicle due tooverlapping structures. * Scrotal wall edema and possible herniated bowel into the scrotal sac,consider CT pelvis. Finalized by Jeb Luciano MD on 01/13/2025 12:45 PM us Viviana Carr DUMP TRUCK OPERATOR-EDI ARCHITECT IMG US ORDERABLES Final R esult * (ABNORMAL) Urinalysis (01/13/2025 6:55 AM EDT) COLOR Yellow Yellow 01/13/2025 11:29 AM EDT [facility] TURBIDITY Cloudy(A) Clear 01/13/2025 11:29 AM EDT [facility] SPECIFIC GRAVITY 1.025 1.003 - 1.035 01/13/2025 11:29 AM EDT [facility] NITRITE Negative Negative 01/13/2025 11:29 AM EDT [facility] PH,URINE 6.0 5.0 - 8.5 01/13/2025 11:29 AM EDT [facility] LEUKOCYTE ESTERASE Negative Negative 01/13/2025 11:29 AM EDT [facility] PROTEIN 30 mg/dL(A) Negative 01/13/2025 11:29 AM EDT [facility] KETONES (URINE) Negative Negative 11:29 AM EDT [facility] UROBILINOGEN 0.2 eu/dL 0.2 eu/dL, 1.0 eu/dL 01/13/2025 11:29 AM EDT [facility] BILIRUBIN (URINE) Negative Negative 01/13/2025 11:29 AM EDT [facility] BLOOD/HGB Large(A) Negative 01/13/2025 11:29 AM EDT [facility] AMORPHOUS SEDIMENT Present(A) None 01/13/2025 11:29 AM EDT [facility] COARSE GRANULAR CAST 2(H) <=0 01/13/2025 11:29 AM EDT [facility] MUCOUS Present(A) None 01/13/2025 11:29 AM EDT [facility] R.B.CELLS 3 0 - 5 01/13/2025 11:29 AM EDT [facility] W.B.CELLS 4 0 - 5 01/13/2025 11:29 AM EDT [facility] GLUCOSE (URINE) Negative Negative, 250 mg/dL 01/13/2025 11:29 AM EDT [facility] Urine Urine specimen collection, clean catch / Unknown 01/13/2025 6:55 AM EDT 01/13/2025 7:01 AM EDT us Viviana Carr DUMP TRUCK OPERATOR-EDI ARCHITECT URINE ORDERABLES Final Re sult Performing Organization Address [facility] Co de Phone Number [address] [place] [address], [place] * Extra Urine [place] (01/13/2025 6:55 AM EDT) Extra Tube Auto Resulted 01/13/2025 8:01 AM EDT [facility] Urine Urine specimen collection, clean catch / Unknown 01/13/2025 6:55 AM EDT 01/13/2025 7:01 AM EDT us Aleks He MD URINE ORDERABLES Final Result Performing Organization Address [facility] de Phone Number [address] [place] [address], [place] * Extra Urine Culture (01/13/2025 6:55 AM EDT) Extra Tube Auto Resulted 01/13/2025 8:01 AM EDT [facility] Urine Urine specimen collection, clean catch / Unknown 01/13/2025 6:55 AM EDT 01/13/2025 7:02 AM EDT us Aleks He MD URINE ORDERABLES Final Result Performing Organization Address [facility] Co de Phone Number [address] [place] [address], [place] * Extra Urine (01/13/2025 6:55 AM EDT) Extra Tube Auto Resulted 01/13/2025 8:01 AM EDT [facility] Urine Urine specimen collection, clean catch / Unknown 01/13/2025 6:55 AM EDT 01/13/2025 7:02 AM EDT us Aleks He MD URINE ORDERABLES Final Result Performing Organization Address [facility] Co de Phone Number [address] [place] [address], [place] * Thyroid profile includes TSH FT4 (01/13/2025 4:37 AM EDT) FREE T4 1.51 0.61 - 1.60 ng/dL 01/13/2025 9:45 AM EDT [facility] TSH 0.59 0.49 - 4.67 uIU/mL 01/13/2025 9:45 AM EDT [facility] Blood Venous blood / Unknown Venipuncture / Unknown 01/13/2025 4:37 AM EDT 01/13/2025 4:52 AM EDT us Viviana Carr DUMP TRUCK OPERATOR-EDI ARCHITECT LAB BLOOD ORDERABLES Misty l Result Performing Organization Address [facility] Co de Phone Number [address] [place] [address], [place] * (ABNORMAL) CBC auto differential (01/13/2025 4:37 AM EDT) WBC 17.3(H) 4 - 11 x10E9/L 01/13/2025 5:18 AM EDT [facility] RBC Count 3.99(L) 4.1 - 5.7 X10E12/L 01/13/2025 5:18 AM EDT [facility] Hemoglobin 12.5(L) 13 - 17 g/dL 01/13/2025 5:18 AM EDT [facility] Hematocrit 37.0(L) 39 - 50 % 01/13/2025 5:18 AM EDT [facility] MCV 93 80 - 100 fL 01/13/2025 5:18 AM EDT [facility] MCH 31.4 27 - 34 pg 01/13/2025 5:18 AM EDT [facility] MCHC 33.9 32 - 36 g/dL 01/13/2025 5:18 AM EDT [facility] RDW 13.6 11.5 - 15 % 01/13/2025 5:18 AM EDT [facility] Platelet Count 211 150 - 450 X10E9/L 01/13/2025 5:18 AM EDT [facility] MPV 10.3 7 - 12 fL 01/13/2025 5:18 AM EDT [facility] Neutrophils % 91.3 % 01/13/2025 5:18 AM EDT [facility] Lymphocytes % 1.9 % 01/13/2025 5:18 AM EDT [facility] Monocytes % 6.5 % 01/13/2025 5:18 AM EDT [facility] Eosinophils % 0.0 % 01/13/2025 5:18 AM EDT [facility] Basophils % 0.3 % 01/13/2025 5:18 AM EDT [facility] Neutrophils Absolute (A) 15.8(H) 1.5 - 6.6 10*3/uL 01/13/2025 5:18 AM EDT [facility] Lymphocytes Absolute 0.3(L) 1.0 - 3.5 10*3/uL 01/13/2025 5:18 AM EDT [facility] Monocytes Absolute 1.1(H) 0.0 - 0.9 10*3/uL 01/13/2025 5:18 AM EDT [facility] Eosinophils Absolute 0.0 0.0 - 0.4 10*3/uL 01/13/2025 5:18 AM EDT [facility] Basophils Absolute 0.1 0.0 - 0.2 10*3/uL 01/13/2025 5:18 AM EDT [facility] Differential Type AUTOMATED DIFFERENTIAL 01/13/2025 5:18 AM EDT [facility] Blood Venous blood / Unknown Venipuncture / Unknown 01/13/2025 4:37 AM EDT 01/13/2025 4:52 AM EDT us Abed Ramadan DUMP TRUCK OPERATOR-EDI ARCHITECT LAB BLOOD ORDERABLES Final Result Performing Organization Address City/[facility]/ZIP Co de Phone Number [address] [place] [address], [place] * (ABNORMAL) Magnesium (01/13/2025 4:37 AM EDT) MAGNESIUM 1.6(L) 1.8 - 2.6 mg/dL 01/13/2025 5:23 AM EDT [facility] Blood Venous blood / Unknown Venipuncture / Unknown 01/13/2025 4:37 AM EDT 01/13/2025 4:52 AM EDT [facility] DU[facility] TRUCK OPERATOR-EDI ARCHITECT LAB BLOOD ORDERABLES Final Result Performing Organization Address [facility] Co de Phone Number [address] [place] [address], [place] * (ABNORMAL) Comprehensive metabolic panel (01/13/2025 4:37 AM EDT) SODIUM 135 134 - 146 mmol/L 01/13/2025 5:23 AM EDT [facility] POTASSIUM 3.6 3.5 - 5.0 mmol/L 01/13/2025 5:23 AM EDT [facility] CHLORIDE 99 98 - 109 mmol/L 01/13/2025 5:23 AM EDT [facility] CARBON DIOXIDE 24 22 - 32 mmol/L 01/13/2025 5:23 AM EDT [facility] ANION GAP 12 5 - 15 mmol/L 01/13/2025 5:23 AM EDT [facility] BLOOD UREA NITROGEN 40(H) 5 - 27 mg/dL 01/13/2025 5:23 AM EDT [facility] CREATININE 1.77(H) 0.70 - 1.20 mg/dL 01/13/2025 5:23 AM EDT [facility] Comment:METHOD TRACEABLE TO IDMS STANDARD GLUCOSE 129(H) 65 - 99 mg/dL 01/13/2025 5:23 AM EDT [facility] CALCIUM 8.1(L) 8.5 - 10.5 mg/dL 01/13/2025 5:23 AM EDT [facility] TOTAL PROTEIN 6.2 6.0 - 8.0 g/dL 01/13/2025 5:23 AM EDT [facility] ALBUMIN 2.8(L) 3.2 - 5.3 g/dL 01/13/2025 5:23 AM EDT [facility] ALKALINE PHOSPHATASE 66 39 - 130 U/L 01/13/2025 5:23 AM EDT [facility] AST 110(H) <=41 U/L 01/13/2025 5:23 AM EDT [facility] ALT 46(H) <=40 U/L 01/13/2025 5:23 AM EDT [facility] BILIRUBIN,TOTAL 1.5(H) 0.3 - 1.2 mg/dL 01/13/2025 5:23 AM EDT [facility] EGFR Non-Race Dependent 40(L) >=60 ml/min/1.7 3sq.m 01/13/2025 5:23 AM EDT [facility] Comment: eGFR not reported due to non-numeric value for Creatinine. Reported eGFR is based on the CKD-EPI 2020 equation that does not use a race coefficient. Blood Venous blood / Unknown Venipuncture / Unknown 01/13/2025 4:37 AM EDT 01/13/2025 4:52 AM EDT us Abed Sean DUMP TRUCK OPERATOR-EDI ARCHITECT LAB BLOOD ORDERABLES Final Result [facility] [address] [place] [address], [place] * (ABNORMAL) Myoglobin, serum (01/13/2025 4:37 AM EDT) SERUM MYOGLOBIN 2,139.7(H) 17.4 - 105.7 ng/mL 01/13/2025 5:35 AM EDT [facility] Blood Venous blood / Unknown Venipuncture / Unknown 01/13/2025 4:37 AM EDT 01/13/2025 4:52 AM EDT us Abed Ramadan DUMP TRUCK OPERATOR-EDI ARCHITECT LAB BLOOD ORDERABLES Final Result Performing Organization Address City/[facility]/ZIP Co de Phone Number [address] [place] [address], [place] * (ABNORMAL) CK Total (01/13/2025 4:37 AM EDT) CPK 2,276(H) 24 - 195 U/L 01/13/2025 8:47 AM EDT [facility] Blood Venous blood / Unknown Venipuncture / Unknown 01/13/2025 4:37 AM EDT 01/13/2025 4:52 AM EDT us Abed Ramdelmy DUMP TRUCK OPERATOR-EDI ARCHITECT LAB BLOOD ORDERABLES Final Result Performing Organization Address [facility] Co de Phone Number [address] [place] [address], [place] * Lactate (01/12/2025 8:50 PM EDT) LACTATE 1.7 0.4 - 2.0 mmol/L 01/12/2025 9:11 PM EDT [facility] Blood Venous blood / Unknown Venipuncture / Unknown 01/12/2025 8:50 PM EDT 01/12/2025 8:52 PM EDT us Aleks He MD LAB BLOOD ORDERABLES Final Resu lt Performing Organization Address City/[facility]/ZIP Co de Phone Number [address] [place] [address], [place] * X-ray chest 1 view (01/12/2025 7:17 PM EDT) Anatomical Region Laterality Modality Body, Chest N/A Computed Radiogr aphy 01/12/2025 7:20 PM EDT Narrative 01/12/2025 7:21 PM EDT Portable chest: HISTORY: Cough. Single view of the chest was obtained. Cardiac and mediastinal contours are within normal limits. Lungs are clear. There is no vascular congestion, effusion, or pneumothorax. Osseous structures appear intact. IMPRESSION: No acute findings. Finalized by Bryon Boucehr MD on 01/12/2025 7:21 PM Procedure Note Bryon Boucher MD - 01/12/2025 Portable chest: HISTORY: Cough. Single view of the chest was obtained. Cardiac and mediastinal contoursare within normal limits. Lungs are clear. There is no vascularcongestion, effusion, or pneumothorax. Osseous structures appear intact. IMPRESSION: No acute findings. Finalized by Bryon Boucher MD on 01/12/2025 7:21 PM Aleks He MD IMG DIAGNOSTIC IMAGING ORDERABL ES Final Result * (ABNORMAL) Troponin I, High Sensitivity 1 Hour (01/12/2025 6:29 PM EDT) TROPONIN I, HIGH SENSITIVITY 41(H) <21 ng/L 01/12/2025 7:11 PM EDT [facility] Blood Venous blood / Unknown Venipuncture / Unknown 01/12/2025 6:29 PM EDT 01/12/2025 6:39 PM EDT Narrative [facility] - 01/12/2025 7:11 PM EDT Elevations of hs-Troponin may be due to causes other than myocardial ischemia. Recommend serial hs-Troponin testing be performed. For the initial evaluation and management of chest pain patients, refer to the algorithms linked below. Emergency Patient: [email or web address] [email or web address]: [email or web address] us Aleks He MD LAB BLOOD ORDERABLES Final Resu lt Performing Organization Address City/[facility]/ZIP Co de Phone Number [facility] [address] [place] [address], [place] * Blood culture (01/12/2025 6:29 PM EDT) CULTURE RESULTS NO GROWTH 5 DAYS 01/17/2025 11:01 PM EDT [facility] Blood Venous blood / Unknown Venipuncture / Unknown 01/12/2025 6:29 PM EDT 01/12/2025 6:49 PM EDT Aleks He MD MICROBIOLOGY - GENERAL ORDERABL ES Final Result Performing Organization Address City/[facility] Co de Phone Number [facility] [address] [place] [address], [place] [phone] * CT brain without contrast (01/12/2025 6:04 PM EDT) Anatomical Region Laterality Modality Neuro, Head, Head and Neck, Neuro Covera N/A Computed Tomography 01/12/2025 6:06 PM EDT Narrative 01/12/2025 6:[address] BRAIN WO CONT: 01/12/2025 6:02 PM Clinical: Head injury. On anticoagulation. EXAM: NONCONTRAST BRAIN CT Comparison: CT brain 04/16/2019 Procedure: Multi-detector CT performed through the brain without IV contrast. Automatic exposure control utilized. All CT scans at this facility use dose modulation, iterative reconstruction, and/or weight based dosing when appropriate to reduce radiation dose to as low as reasonably achievable. Findings: There is no intracranial hemorrhage, extra-axial fluid collection, mass effect, midline shift, or hydrocephalus. Patent basal cisterns. MRI is more sensitive for evaluation of acute ischemia and subtle parenchymal abnormalities. IMPRESSION: * No acute intracranial abnormality by CT. Stable exam. Finalized by Pasha Young MD on 01/12/2025 6:08 PM Procedure Note Pasha Young MD - 01/12/2025 CT BRAIN WO CONT: 01/12/2025 6:02 PM Clinical: Head injury. On anticoagulation. EXAM: NONCONTRAST BRAIN CT Comparison: CT brain 04/16/2019 Procedure: Multi-detector CT performed through the brain without IV contrast.Automatic exposure control utilized. All CT scans at this facility use dose modulation, iterativereconstruction, and/or weight based dosing when appropriate to reduceradiation dose to as low as reasonably achievable. Findings: There is no intracranial hemorrhage, extra-axial fluid collection, masseffect, midline shift, or hydrocephalus. Patent basal cisterns. MRI is more sensitive for evaluation of acute ischemia and subtleparenchymal abnormalities. IMPRESSION: * No acute intracranial abnormality by CT. Stable exam. Finalized by Pasha Young MD on 01/12/2025 6:08 PM Aleks He MD IMG CT ORDERABLES Final Result * Blood culture (01/12/2025 5:23 PM EDT) CULTURE RESULTS NO GROWTH 5 DAYS 01/17/2025 11:01 PM EDT [facility] Blood Venous blood / Unknown Venipuncture / Unknown 01/12/2025 5:23 PM EDT 01/12/2025 5:32 PM EDT us Aleks He MD MICROBIOLOGY - GENERAL ORDERABL ES Final Result [facility] [address] [place] [address], [place] [phone] * (ABNORMAL) Lactate w/ Reflex (01/12/2025 5:23 PM EDT) LACTATE W/REFLEX 2.4(H) 0.4 - 2.0 mmol/L 01/12/2025 5:51 PM EDT [facility] Blood Venous blood / Unknown Venipuncture / Unknown 01/12/2025 5:23 PM EDT 01/12/2025 5:32 PM EDT us Aleks He MD LAB BLOOD ORDERABLES Final Resu lt [facility] [address] [place] [address], * SARS/FLU A+B/RSV by NAAT/Molecular (M4RT Collection Tube) (01/12/2025 5:12 PM EDT) FLU A PCR Negative Negative 01/12/2025 6:12 PM EDT [facility] FLU B PCR Negative Negative 01/12/2025 6:12 PM EDT [facility] RSV BY PCR Negative Negative 01/12/2025 6:12 PM EDT [facility] SARS COV 2 BY PCR Not Detected Not Detected 01/12/2025 6:12 PM EDT [facility] Swab Nasopharyngeal structure / Unknown 01/12/2025 5:12 PM EDT 01/12/2025 5:33 PM EDT Narrative [facility] - 01/12/2025 6:12 PM EDT The Xpert Xpress SARS-CoV-2/Flu/RSV Plus test is a rapid, multiplexed real-time RT-PCR test intended for the simultaneous qualitative detection and differentiation of SARS-CoV-2, influenza A, influenza B and respiratory syncytial virus (RSV) viral RNA from individuals suspected of respiratory viral infection consistent with COVID-19 by Their healthcare provider. This test has not been validated in asymptomatic patients. The Xpert Xpress SARS-CoV-2 test is intended for use by qualified and trained operators who are performing tests using either [employer] DX or [employer] systems and is limited to laboratories that meet the CLIA requirements to perform high and moderate complexity tests. The Xpert Xpress SARS-CoV-2/Flu/RSV Plus is only for use under the Food and Drug Administration's Emergency Use Authorization. Results are for the simultaneous detection and differentiation of SARS-CoV-2, influenza A, influenza B and RSV nucleic acids in clinical specimens. SARS-CoV-2, influenza A, influenza B and RSV RNA identified by this test are generally detectable in upper respiratory samples during the acute phase of infection. Positive results are Indicative of the presence of the identified virus, but do not rule out bacterial infection or co-infection with other pathogens not detected by this test. Clinical correlation with patient history and other diagnostic information is necessary to determine patient infection status. The agent detected may not be the definite cause of disease. Negative results do not preclude SARS-CoV-2, influenza A, influenza B and RSV infection and should not be used as the sole basis for treatment or other patient management decisions. Negative results must be combined with clinical observations, patient history and epidemiological information. An Invalid result may occur with specimen-associated inhibition unable to be resolved with specimen repeat. Fact Sheet for Healthcare Providers: https://www.fda.gov/media/815266/download Fact Sheet for Patients: https://www.fda.gov/media/549169/download us Aleks He MD MICROBIOLOGY - GENERAL ORDERABL ES Final Result [facility] [address] [place] [address], * (ABNORMAL) Procalcitonin (01/12/2025 5:11 PM EDT) PROCALCITONIN 5.10(H) <0.05 ng/mL 01/12/2025 9:06 PM EDT [facility] Blood Venous blood / Unknown Venipuncture / Unknown 01/12/2025 5:11 PM EDT 01/12/2025 5:32 PM EDT Narrative [facility] - 01/12/2025 9:06 PM EDT <0.50 ng/mL - Low risk of severe sepsis and/or septic shock. <2.00 ng/mL - Recommend retesting within 6-24 hours. >2.00 ng/mL - High risk of sepsis and/or septic shock. Joan Estrada APRN-[facility] LAB BLOOD ORDERABLES Final Result Performing Organization Address [facility] Co de Phone Number [address] [place] [address], [place] * (ABNORMAL) Troponin I, High Sensitivity 0 Hour (01/12/2025 5:11 PM EDT) TROPONIN I, HIGH SENSITIVITY 39(H) <21 ng/L 01/12/2025 6:04 PM EDT [facility] Blood Venous blood / Unknown Venipuncture / Unknown 01/12/2025 5:11 PM EDT 01/12/2025 5:32 PM EDT us Aleks He MD LAB BLOOD ORDERABLES Final Resu lt Performing Organization Address [facility] Co de Phone Number [address] [place] [address], [place] * (ABNORMAL) CK Total (01/12/2025 5:11 PM EDT) CPK 3,798(H) 24 - 195 U/L 01/12/2025 6:05 PM EDT [facility] Blood Venous blood / Unknown Venipuncture / Unknown 01/12/2025 5:11 PM EDT 01/12/2025 5:32 PM EDT us Aleks He MD LAB BLOOD ORDERABLES Final Resu lt Performing Organization Address City/[facility] Co de Phone Number [address] [place] [address], [place] * Magnesium (01/12/2025 5:11 PM EDT) MAGNESIUM 1.8 1.8 - 2.6 mg/dL 01/12/2025 6:05 PM EDT [facility] Blood Venous blood / Unknown Venipuncture / Unknown 01/12/2025 5:11 PM EDT 01/12/2025 5:32 PM EDT us Aleks He MD LAB BLOOD ORDERABLES Final Resu lt [facility] [address] [place] [place] [address], [place] * (ABNORMAL) D-Dimer (01/12/2025 5:11 PM EDT) D DIMER 259(H) 1 - 255 ug/mL 01/12/2025 5:46 PM EDT [facility] Comment:Results >255 ng/mL D DU: Results may be indicative of the presence of VTE. The use of the Wells score and further diagnostic tests should be considered. Elevated D-Dimer levels can be associated with DIC, neoplasm, , trauma and liver disease. Elevated levels of rheumatoid factor may lead to an overestimation of the D-Dimer level. Blood Venous blood / Unknown Venipuncture / Unknown 01/12/2025 5:11 PM EDT 01/12/2025 5:32 PM EDT Aleks He MD LAB BLOOD ORDERABLES Final Resu lt [facility] [address] [place] [place] [address], [place] * (ABNORMAL) Comprehensive metabolic panel (01/12/2025 5:11 PM EDT) SODIUM 134 134 - 146 mmol/L 01/12/2025 6:05 PM EDT [facility] POTASSIUM 3.5 3.5 - 5.0 mmol/L 01/12/2025 6:05 PM EDT [facility] CHLORIDE 95(L) 98 - 109 mmol/L 01/12/2025 6:05 PM EDT [facility] CARBON DIOXIDE 25 22 - 32 mmol/L 01/12/2025 6:05 PM EDT [facility] ANION GAP 14 5 - 15 mmol/L 01/12/2025 6:05 PM EDT [facility] BLOOD UREA NITROGEN 41(H) 5 - 27 mg/dL 01/12/2025 6:05 PM EDT [facility] CREATININE 1.97(H) 0.70 - 1.20 mg/dL 01/12/2025 6:05 PM EDT [facility] Comment:METHOD TRACEABLE TO IDMO STANDARD GLUCOSE 125(H) 65 - 99 mg/dL 01/12/2025 6:05 PM EDT [facility] CALCIUM 9.0 8.5 - 10.5 mg/dL 01/12/2025 6:05 PM EDT [facility] TOTAL PROTEIN 7.5 6.0 - 8.0 g/dL 01/12/2025 6:05 PM EDT [facility] ALBUMIN 3.5 3.2 - 5.3 g/dL 01/12/2025 6:05 PM EDT [facility] ALKALINE PHOSPHATASE 78 39 - 130 U/L 01/12/2025 6:05 PM EDT [facility] AST 105(H) <=41 U/L 01/12/2025 6:05 PM EDT [facility] ALT 43(H) <=40 U/L 01/12/2025 6:05 PM EDT [facility] BILIRUBIN,TOTAL 2.2(H) 0.3 - 1.2 mg/dL 01/12/2025 6:05 PM EDT [facility] [facility] EGFR Non-Race Dependent 35(L) >=60 ml/min/1.7 3sq.m 01/12/2025 6:05 PM EDT [facility] Comment: eGFR not reported due to non-numeric value for Creatinine. Reported eGFR is based on the CKD-EPI 2020 equation that does not use a race coefficient. Blood Venous blood / Unknown Venipuncture / Unknown 01/12/2025 5:11 PM EDT 01/12/2025 5:32 PM EDT us Aleks He MD LAB BLOOD ORDERABLES Final Resu lt [address] [place] [address], [place] * (ABNORMAL) B-type natriuretic peptide (01/12/2025 5:11 PM EDT) BNP 352(H) <=100 pg/mL 01/12/2025 6:57 PM EDT [facility] Blood Venous blood / Unknown Venipuncture / Unknown 01/12/2025 5:11 PM EDT 01/12/2025 5:32 PM EDT us Aleks He MD LAB BLOOD ORDERABLES Final Resu lt Performing Organization Address City/[facility]/ZIP Co de Phone Number [address] [place] [address], [place] * APTT (01/12/2025 5:11 PM EDT) APTT 34 26 - 37 sec 01/12/2025 5:46 PM EDT [facility] Blood Venous blood / Unknown Venipuncture / Unknown 01/12/2025 5:11 PM EDT 01/12/2025 5:32 PM EDT Aleks He MD LAB BLOOD ORDERABLES Final Resu lt Performing Organization Address City/[facility]/ZIP Co de Phone Number [address] [place] [address], [place] * (ABNORMAL) Protime & INR (01/12/2025 5:11 PM EDT) PROTIME 24.7(H) 9.8 - 13.2 sec 01/12/2025 5:46 PM EDT [facility] INR 2.1(H) 0.9 - 1.2 01/12/2025 5:46 PM EDT [facility] Blood Venous blood / Unknown Venipuncture / Unknown 01/12/2025 5:11 PM EDT 01/12/2025 5:32 PM EDT us Aleks He MD LAB BLOOD ORDERABLES Final Resu lt [facility] [address] [place] [place] [address], [place] * (ABNORMAL) CBC auto differential (01/12/2025 5:11 PM EDT) WBC 22.7(H) 4 - 11 x10E9/L 01/12/2025 6:24 PM EDT [facility] RBC Count 4.72 4.1 - 5.7 X10E12/L 01/12/2025 6:24 PM EDT [facility] Hemoglobin 14.6 13 - 17 g/dL 01/12/2025 6:24 PM EDT [facility] Hematocrit 43.9 39 - 50 % 01/12/2025 6:24 PM EDT [facility] MCV 93 80 - 100 fL 01/12/2025 6:24 PM EDT [facility] MCH 31.0 27 - 34 pg 01/12/2025 6:24 PM EDT [facility] MCHC 33.3 32 - 36 g/dL 01/12/2025 6:24 PM EDT [facility] RDW 13.9 11.5 - 15 % 01/12/2025 6:24 PM EDT [facility] Platelet Count 208 150 - 450 X10E9/L 01/12/2025 6:24 PM EDT [facility] MPV 11.3 7 - 12 fL 01/12/2025 6:24 PM EDT [facility] Bands % 2 % 01/12/2025 6:24 PM EDT [facility] Comment:This is an appended report. These results have been appended to a previously preliminary verified report. Neutrophils % 90 % 01/12/2025 6:24 PM EDT [facility] Comment:This is an appended report. These results have been appended to a previously preliminary verified report. Lymphocytes % 2 % 01/12/2025 6:24 PM EDT [facility] Comment:This is an appended report. These results have been appended to a previously preliminary verified report. Monocytes % 6 % 01/12/2025 6:24 PM EDT [facility] Comment:This is an appended report. These results have been appended to a previously preliminary verified report. Neutrophils Absolute (M) 20.8(H) 1.5 - 6.6 10*3/uL 01/12/2025 6:24 PM EDT [facility] Comment:This is an appended report. These results have been appended to a previously preliminary verified report. Lymphocytes Absolute 0.5(L) 1.0 - 3.5 10*3/uL 01/12/2025 6:24 PM EDT [facility] Comment:This is an appended report. These results have been appended to a previously preliminary verified report. Monocytes Absolute 1.4(H) 0.0 - 0.9 10*3/uL 01/12/2025 6:24 PM EDT [facility] Comment:This is an appended report. These results have been appended to a previously preliminary verified report. RBC Morphology Normal 01/12/2025 6:24 PM EDT [facility] Comment:This is an appended report. These results have been appended to a previously preliminary verified report. Differential Type MANUAL DIFFERENTIAL 01/12/2025 6:24 PM EDT [facility] Comment:This is an appended report. These results have been appended to a previously preliminary verified report. Blood Venous blood / Unknown Venipuncture / Unknown 01/12/2025 5:11 PM EDT 01/12/2025 5:32 PM EDT us Aleks He MD LAB BLOOD ORDERABLES Final Resu lt [facility] [address] [place] [address], [place] * ECG 12 lead (01/12/2025 4:46 PM EDT) 01/12/2025 4:46 PM EDT Narrative [facility] - 01/12/2025 6:49 PM EDT Aleks He MD ECG ORDERABLES Final Result TRACE[facility]Y documented in this encounter Visit Diagnoses Diagnosis Atrial fibrillation with rapid ventricular response (CMS-HCC)- Primary Atrial fibrillation with rapid ventricular response (CMS-HCC) Non-traumatic rhabdomyolysis Contusion of face, initial encounter Leukocytosis, unspecified type Stroke (CMS-HCC) Unspecified cerebral artery occlusion with cerebral infarction Cerebral infarction (CMS-HCC) Unspecified cerebral artery occlusion with cerebral infarction Cardiomyopathy, nonischemic (CMS-HCC) Other primary cardiomyopathies documented in this encounter Admitting Diagnoses Diagnosis Atrial fibrillation with rapid ventricular response (CMS-HCC) documented in this encounter Administered Medications Inactive Administered Medications - up to 3 most recent administrations Medication Order MAR Action Action Date Dose Rate Site acetaminophen (TYLENOL EXTRA STRENGTH) tablet 500 mg 500 mg, oral, Every 6 hours PRN, headaches, temperature greater than 38 C, mild pain - pain scale 1-3, Starting on Sat01/12/25 at 2007, [Warning: Total Acetaminophen not to exceed more than 4 grams (4000 mg) in 24 hours] Given 01/13/2025 6:28 AM EDT 500 mg acetaminophen (TYLENOL) tablet 650 mg 650 mg, oral, Once, On Sat01/12/25 at 1905, For 1 dose Given 01/12/2025 7:16 PM EDT 650 mg alum-mag hydroxide-simeth (MAALOX) 200-200-20 mg/5 mL suspension 30 mL 30 mL, oral, 4 times daily after meals and at bedtime as needed, dyspepsia, Starting on Sat01/12/25 at 2007, Look-alike/sound-alike medication - verify indication for use. Shake well., Indications: dyspepsiaIndications:dys pepsia apixaban (ELIQUIS) tablet 5 mg 5 mg, oral, 2 times daily, First dose on Sat01/13/25 at 0915, Indication: Nonvalvular Atrial Fibrillation (NVAF) Given 01/13/2025 9:28 AM EDT 5 mg cefTRIAXone (ROCEPHIN) IVPB 1000 mg/50 mL in iso-osmotic dextrose (20 mg/mL premix) 1,000 mg, intravenous, at 100 mL/hr, Administer over 30 Minutes, Once, On Sat01/12/25 at 1850, For 1 dose, Look-alike/sound-alike medication - verify indication for use. Do not co-administer with calcium-containing solutions such as Lactated Ringers., Indication: Sepsis New Bag 01/12/2025 7:13 PM EDT 1,000 mg 100 mL/hr cefTRIAXone (ROCEPHIN) IVPB 2000 mg/50 mL in iso-osmotic dextrose (40 mg/mL premix) 2,000 mg, intravenous, at 100 mL/hr, Administer over 30 Minutes, Every 24 hours, First dose on Sat01/13/25 at 2000, Look-alike/sound-alike medication - verify indication for use. Do not co-administer with calcium-containing solutions such as Lactated Ringers., Indication: Sepsis New Bag 01/13/2025 7:53 PM EDT 2,000 mg 100 mL/hr dextrose (GLUTOSE) 40 % gel 15 g 15 g, oral, As needed, low blood sugar, blood glucose less than 70 mg/dL, Starting on Sat01/12/25 at 2007, If patient conscious and taking PO. If blood glucose is not greater than 70 mg/dL after initial treatment, repeat treatment. dextrose 5 % (D5W) infusion 100 mL/hr, intravenous, Continuous PRN, blood glucose less than 70 mg/dL, Starting on Sat01/12/25 at 2007, For 365 days, Use immediately following dextrose 50% or glucagon treatment for patients who are unconscious or NPO. Contact prescriber for additional orders. If blood glucose is not greater than 70 mg/dL after initial treatment, repeat treatment. dextrose 50 % in water (D50W) 50% solution 25 mL 25 mL, intravenous, As needed, low blood sugar, blood glucose less than 70 mg/dL and unconscious or NPO with IV access, Starting on Sat01/12/25 at 2007, Push over 1-3 minutes STAT. If conscious and not NPO, immediately follow with meal tray or high protein (7 grams) snack if tray not available. If NPO, initiate 5% dextrose in water at 100 mL/hr and contact prescriber for additional orders. If blood glucose is not greater than 70 mg/dL after initial treatment, repeat treatment. VESICANT (RED) Warning: HYPERTONIC solution. digoxin (LANOXIN) injection 500 mcg 500 mcg, intravenous, Once, On Sat01/12/25 at 1900, For 1 dose, Administer IVP slowly over at least 5 minutes. Look-alike/sound-alike medication - verify indication for use. Given 01/12/2025 7:09 PM EDT 500 mcg digoxin (LANOXIN) injection 500 mcg 500 mcg, intravenous, Once, On Sat01/13/25 at 1530, For 1 dose, Administer IVP slowly over at least 5 minutes. Look-alike/sound-alike medication - verify indication for use. Given 01/13/2025 3:39 PM EDT 500 mcg digoxin (LANOXIN) tablet 125 mcg 125 mcg, oral, Every other day, First dose on Sat01/14/25 at 0900, Look-alike/sound-alike medication - verify indication for use. dilTIAZem (CARDIZEM) infusion 125 mg/125 mL in sodium chloride 0.7% (1 mg/mL premix) 10 mg/hr (10 mL/hr), intravenous, Continuous, Starting on Sat01/12/25 at 1705, Look-alike/sound-alike medication - verify indication for use., Monitoring Goals: HR, Monitoring Goal Direction: Within, Lower Parameter: 90, Upper Parameter: 120, Starting Dose (range 2.5 to 10 mg/hour): 10 mg/hr, Titration Dose Range (range 2.5 to 5 mg/hour): 2.5 - 5 mg/hour, Titration Frequency - As Frequent As: 15 minutes Rate/Dose Change 01/12/2025 6:07 PM EDT 12.5 mg/hr 12.5 mL/hr New Bag 01/12/2025 5:41 PM EDT 10 mg/hr 10 mL/hr dilTIAZem (CARDIZEM) infusion 125 mg/125 mL in sodium chloride 0.7% (1 mg/mL premix) 15 mg/hr (15 mL/hr), intravenous, Continuous, Starting on Sat01/12/25 at 1930, Look-alike/sound-alike medication - verify indication for use., Monitoring Goals: HR, Monitoring Goal Direction: Within, Lower Parameter: 90, Upper Parameter: 130, Starting Dose (range 2.5 to 10 mg/hour): Other, Please specify: 15, Titration Dose Range (range 2.5 to 5 mg/hour): 2.5 - 5 mg/hour, Titration Frequency - As Frequent As: 15 minutes Rate/Dose Verify 01/12/2025 9:35 PM EDT 15 mg/hr 15 mL/hr Rate/Dose Verify 01/12/2025 9:27 PM EDT 15 mg/hr 15 mL/h r Rate/Dose Verify 01/12/2025 9:24 PM EDT 15 mg/hr 15 mL/h r dilTIAZem (CARDIZEM) infusion 125 mg/125 mL in sodium chloride 0.7% (1 mg/mL premix) 5-15 mg/hr (5-15 mL/hr), intravenous, Continuous, Starting on Sat01/12/25 at 2145, Look-alike/sound-alike medication - verify indication for use., Monitoring Goals: HR, Monitoring Goal Direction: Within, Lower Parameter: 90, Upper Parameter: 130, Starting Dose (range 2.5 to 10 mg/hour): Other, Please specify: 15, Titration Dose Range (range 2.5 to 5 mg/hour): 2.5 - 5 mg/hour, Titration Frequency - As Frequent As: 15 minutes Restarted 01/13/2025 1:29 PM EDT 10 mg/hr 10 mL/h r Rate/Dose Change 01/13/2025 1:11 PM EDT 10 mg/hr 10 mL/h r Restarted 01/13/2025 9:43 AM EDT 15 mg/hr 15 mL/hr dilTIAZem (CARDIZEM) injection 10 mg 10 mg, intravenous, Once, On Sat01/12/25 at 1930, For 1 dose, IV push over 2 minutes. Look-alike/sound-alike medication - verify indication for use. Given 01/12/2025 7:59 PM EDT 10 mg dilTIAZem (CARDIZEM) injection 20 mg 20 mg, intravenous, Once, On Sat01/12/25 at 1705, For 1 dose, IV push over 2 minutes. Look-alike/sound-alike medication - verify indication for use. Given 01/12/2025 5:06 PM EDT 20 mg glucagon HCL injection 1 mg 1 mg, intramuscular, As needed, low blood sugar, blood glucose less than 70 mg/dL and unconscious or NPO without IV access., Starting on Sat01/12/25 at 2007, If conscious and not NPO, immediately follow with meal tray or high protein (7Grams) snack if tray not available. If NPO, initiate IV 5% Dextrose/Water at 100 mL/hr and contact prescriber for additional orders. If blood glucose is not greater than 70 mg/dL after initial treatment, repeat treatment. HYDROcodone-acetaminophen (NORCO) 5-325 mg per tablet 1 tablet 1 tablet, oral, Every 6 hours PRN, moderate pain - pain scale 4-6, Starting on Sat01/13/25 at 1122, Look-alike/sound-alike medication - verify indication for use. Given 01/13/2025 5:54 PM EDT 1 ta blet Given 01/13/2025 11:39 AM EDT 1 tablet ipratropium (ATROVENT) 0.02 % nebulizer solution 0.5 mg 0.5 mg, nebulization, Every 4 hours while awake, First dose on Sat01/13/25 at 1130, Look-alike/sound-alike medication - verify indication for use., Implement INPATIENT/ED Bronchodilator Clinical Practice Guidelines? No Given 01/14/2025 7:21 AM EDT 0.5 mg Given 01/13/2025 7:22 PM EDT 0.5 mg Given 01/13/2025 2:21 PM EDT 0.5 mg levalbuterol (XOPENEX) nebulizer solution 1.25 mg 1.25 mg, nebulization, Every 4 hours while awake, First dose on Sat01/13/25 at 1130, Ordered in place of albuterol due to: tachycardia, arrhythmia, Implement INPATIENT/ED Bronchodilator Clinical Practice Guidelines? No Given 01/14/2025 7:21 AM EDT 1.25 mg Given 01/13/2025 7:22 PM EDT 1.25 mg Given 01/13/2025 2:20 PM EDT 1.25 mg magnesium sulfate IVPB 2000 mg/50 mL in iso-osmotic water (40 mg/mL premix) 2,000 mg, intravenous, at 25 mL/hr, Administer over 120 Minutes, As needed, Magnesium level 1.7 to 1.9 mg/dL, or Ionized Magnesium level 0.45 to 0.5 mmol/L., Starting on Sat01/12/25 at 2007, Recheck magnesium level 4 hours after infusion complete. With each magnesium result continue the replacement orders as needed. magnesium sulfate IVPB 4000 mg/100 mL in iso-osmotic water (40 mg/mL premix) 4,000 mg, intravenous, at 25 mL/hr, Administer over 240 Minutes, As needed, Magnesium level 1.6 mg/dL or less, or Ionized Magnesium level 0.44 mmol/L or less, Starting on Sat01/12/25 at 2007, Recheck magnesium level 4 hours after infusion complete. With each magnesium result continue the replacement orders as needed. New Bag 01/13/2025 6:38 AM EDT 4,000 mg 25 mL/hr metoprolol tartrate (LOPRESSOR) tablet 50 mg 50 mg, oral, 2 times daily, First dose on Sat01/13/25 at 0930, Hold for SBP< 100 or HR <60 Look-alike/sound-alike medication - verify indication for use. Given 01/14/2025 7:42 AM EDT 50 mg Given 01/13/2025 7:47 PM EDT 50 mg Given 01/13/2025 9:28 AM EDT 50 mg metroNIDAZOLE (FLAGYL) IVPB 500 mg/100 mL in iso-osmotic sodium chloride (5 mg/mL premix) 500 mg, intravenous, at 100 mL/hr, Administer over 60 Minutes, Every 12 hours, First dose on Sat01/14/25 at 0700, Look-alike/sound-alike medication - verify indication for use., Indication: Intra-abdominal New Bag 01/14/2025 7:43 AM EDT 500 mg 100 mL/hr midodrine (PROAMATINE) tablet 5 mg 5 mg, oral, 3 times daily, First dose on Sat01/14/25 at 0900, Look-alike/sound-alike medication - verify indication for use. norepinephrine (LEVOPHED) infusion 8 mg/250 mL in sod chlor 0.9% (0.032 mg/mL PMX) 0.01-0.4 mcg/kg/min 83.2 kg (1.56-62.4 mL/hr, rounded to 1.6-62.4 mL/hr), intravenous, Continuous, Starting on [place] 01/14/25 at 1245, Preferred central line administration. Start at 0.04 mcg/kg/min. Titrate by 0.02 mcg/kg/min every 5 min to achieve MAP >65 or SBP >100. VESICANT (RED) Requires Smart Pump., Indication: Hypotension, Sequence of Pressors - Use this medication: First, Wean Sequence: Wean First New Bag 01/14/2025 12:14 PM EDT 0.02 mcg/kg/min 3.1 mL/hr ondansetron (PF) (ZOFRAN) injection 4 mg 4 mg, intravenous, Every 4 hours PRN, nausea, vomiting, Starting on 01/12/25 at 2007, Intravenous administration preferred to be given over 2-5 minutes. piperacillin-tazobactam (ZOSYN) IVPB 3.375 g/50 mL in iso-osmotic dextrose (67.5 mg/mL premix) 3.375 g, intravenous, at 12.5 mL/hr, Administer over 4 Hours, Every 8 hours, First dose on [place] 01/14/25 at 1700, Dose adjusted per [facility] approved piperacillin-tazobactam policy. First dose of 3.375 gram to be 4 hours after 4.5 gram dose if frequency is every 8 hours or 8 hours after 4.5 gram dose if frequency is every 12 hours., Indication: Nosocomial intra-abdominal potassium chloride (KAYCIEL) 20 mEq/15 mL solution 30-40 mEq 30-40 mEq, oral, As needed, Potassium Supplementation, Starting on Sat01/12/25 at 2007, Progress to oral potassium replacement when patient tolerating oral intake. If dose administered, recheck potassium level 4 hours after last dose. For potassium level 3.4 to 3.8 mmol/L and GFR 30 mL/min or greater=30 mEq. For potassium level 3.1 to 3.3 mmol/L and GFR 30 mL/min or greater=40 mEq. For potassium level 3 mmol/L or less and GFR 30 mL/min or greater=50 mEq. Must dilute before use - Mix in 3-8 ounces of water or juice before administration When administering in feeding tube, flush before and after per policy and monitor potassium levels potassium chloride (KLOR-CON M 20) CR tablet 30-40 mEq 30-40 mEq, oral, As needed, Potassium Supplementation, Starting on Sat01/12/25 at 2007, Progress to oral potassium replacement when patient tolerating oral intake. If dose administered, recheck potassium level 4 hours after last dose. For potassium level 3.4 to 3.8 mmol/L and GFR 30 mL/min or greater=30 mEq. For potassium level 3.1 to 3.3 mmol/L and GFR 30 mL/min or greater=40 mEq. For potassium level 3 mmol/L or less and GFR 30 mL/min or greater=50 mEq. Do not crush or chew. Given 01/13/2025 6:28 AM EDT 30 mEq potassium chloride IVPB 10 mEq/100 mL in water (0.1 mEq/mL premix) 10 mEq, intravenous, at 100 mL/hr, Administer over 60 Minutes, As needed, POTASSIUM REPLACEMENT, Starting on Sat01/12/25 at 2007, IV if unable to use oral/enteral with the current dosing strategies Potassium level 3 mmol/L or less administer Potassium Chloride 50 mEq Potassium level 3.1 to 3.3 mmol/L administer Potassium Chloride 40 mEq Potassium level 3.4 to 3.8 mmol/L administer Potassium Chloride 30 mEq Use central line when applicable. Recheck potassium level 1 hour after total IVPB infusion complete, With each potassium result continue the replacement orders as needed VESICANT (YELLOW) Infuse each 10 mEq over a minimum of 1 hour. propofoL (DIPRIVAN) infusion 5 mcg/kg/min 83.2 kg (2.496 mL/hr, rounded to 2.5 mL/hr), intravenous, Continuous, Starting on [place] 01/14/25 at 1245, Notify prescriber if rate exceeds 50 mcg/kg/min. (Max dose for status epilepticus is 200 mcg/kg/min). Check triglyceride level every 72 hours while on propofol. Look-alike/sound-alike medication - verify indication for use. Tubing and any unused portions of propofol vials should be discarded after 12 hours., Monitoring Goals: RASS, Starting Dose (range 5 to 30 mcg/kg/min): 5 mcg/kg/min, Titration Dose Range (range 5 to 10 mcg/kg/min): 5 - 10 mcg/kg/min, Titration Frequency - As Frequent As (range 1 to 3 minutes): 1 minute, Indication: Sedation, Sequence of Sedation- Use this medication: First, Wean Sequence: Wean First New Bag 01/14/2025 1:44 PM EDT 5 mcg/kg/min 2.5 mL/hr sennosides-docusate sodium (SENOKOT-S) 8.6-50 mg 1 tablet 1 tablet, oral, Every 12 hours PRN, constipation, Starting on Sat01/12/25 at 2007 sodium chloride 0.9 % bolus 1,000 mL, intravenous, at 492 mL/hr, Administer over 122 Minutes, Once, On Sat01/12/25 at 1705, For 1 dose New Bag 01/12/2025 5:06 PM EDT 1,000 mL 492 mL/hr sodium chloride 0.9 % bolus 500 mL, intravenous, at 492 mL/hr, Administer over 61 Minutes, Once, On Sat01/12/25 at 1935, For 1 dose New Bag 01/12/2025 8:03 PM EDT 500 mL 492 mL/hr sodium chloride 0.9 % bolus 1,000 mL, intravenous, at 500 mL/hr, Administer over 2 Hours, Once, On Sat01/12/25 at 2015, For 1 dose Rate/Dose Verify 01/12/2025 11:18 PM EDT 500 mL/hr Rate/Dose Verify 01/12/2025 9:27 PM EDT 500 mL/ hr Rate/Dose Verify 01/12/2025 9:26 PM EDT 500 mL/ hr sodium chloride 0.9 % flush 3 mL 3 mL, intravenous, As needed, line care, before and after each intermittent use, Starting on Sat01/12/25 at 1700 sodium chloride 0.9 % infusion 75 mL/hr, intravenous, Continuous, Starting on Sat01/12/25 at 2010, For 1 day Rate/Dose Verify 01/14/2025 4:51 AM EDT 75 mL/hr Restarted 01/14/2025 4:49 AM EDT 75 mL/hr Rate/Dose Verify 01/13/2025 10:52 PM EDT 75 mL/ hr sodium chloride 0.9 % infusion 1,000 mL, intravenous, at 30 mL/hr, Continuous, Starting on [place] 01/14/25 at 1330, For 1 day New Bag 01/14/2025 1:29 PM EDT 1,000 mL 30 m L/hr documented in this encounter Active and Recently Administered Medications Times are shown in EDT. Scheduled Medication Order 01/12/2025 01/13/2025 01/14/2025 acetaminophen (TYLENOL) tablet 650 mg (COMPLETED) 650 mg, oral, Once, On Sat01/12/25 at 1905, For 1 dose 1915 (Given - Provider: Daniela Champion RN) apixaban (ELIQUIS) tablet 5 mg (CANCELED) 5 mg, oral, 2 times daily, First dose on Sat01/13/25 at 0915, Indication: Nonvalvular Atrial Fibrillation (NVAF) 0928 (Given - Provider: Tricia Sierra RN) cefTRIAXone (ROCEPHIN) IVPB 1000 mg/50 mL in iso-osmotic dextrose (20 mg/mL premix) (COMPLETED) 1,000 mg, intravenous, at 100 mL/hr, Administer over 30 Minutes, Once, On Sat01/12/25 at 1850, For 1 dose, Look-alike/sound-alike medication - verify indication for use. Do not co-administer with calcium-containing solutions such as Lactated Ringers., Indication: Sepsis 1912 (New Bag - Provider: Daniela Champion RN)1940 (Stop Bag - Provider: Daniela Champion RN) cefTRIAXone (ROCEPHIN) IVPB 2000 mg/50 mL in iso-osmotic dextrose (40 mg/mL premix) (CANCELED) 2,000 mg, intravenous, at 100 mL/hr, Administer over 30 Minutes, Every 24 hours, First dose on Sat01/13/25 at 2000, Look-alike/sound-alike medication - verify indication for use. Do not co-administer with calcium-containing solutions such as Lactated Ringers., Indication: Sepsis 1952 (New Bag - Provider: Haydee Coleman RN)2022 (Stop Bag - Provider: Haydee Coleman RN) 0903 (MAR Hold - Provider: Automatic Transfer Provider - Reason: Patient not available)1210 (MAR Unhold - Provider: Automatic Transfer Provider) digoxin (LANOXIN) injection 500 mcg (COMPLETED) 500 mcg, intravenous, Once, On Sat01/12/25 at 1900, For 1 dose, Administer IVP slowly over at least 5 minutes. Look-alike/sound-alike medication - verify indication for use. 1908 (Given - Provider: Daniela Champion RN) digoxin (LANOXIN) injection 500 mcg (COMPLETED) 500 mcg, intravenous, Once, On Sat01/13/25 at 1530, For 1 dose, Administer IVP slowly over at least 5 minutes. Look-alike/sound-alike medication - verify indication for use. 1538 (Given - Provider: Tricia Sierra RN) digoxin (LANOXIN) tablet 125 mcg 125 mcg, oral, Every other day, First dose on Sat01/14/25 at 0900, Look-alike/sound-alike medication - verify indication for use. 0900 (Due)09 (MAR Hold - Provider: Automatic Transfer Provider - Reason: Patient not available)121 ([facility] Unhold - Provider: Automatic Transfer Provider) dilTIAZem (CARDIZEM) injection 10 mg (COMPLETED) 10 mg, intravenous, Once, On Sat01/12/25 at 1930, For 1 dose, IV push over 2 minutes. Look-alike/sound-alike medication - verify indication for use. 1958 (Given - Provider: Daniela Champion RN) dilTIAZem (CARDIZEM) injection 20 mg (COMPLETED) 20 mg, intravenous, Once, On Sat01/12/25 at 1705, For 1 dose, IV push over 2 minutes. Look-alike/sound-alike medication - verify indication for use. 1705 (Given - Provider: Arlen Hatfield RN) ipratropium (ATROVENT) 0.02 % nebulizer solution 0.5 mg 0.5 mg, nebulization, Every 4 hours while awake, First dose on Sat01/13/25 at 1130, Look-alike/sound-alike medication - verify indication for use., Implement INPATIENT/ED Bronchodilator Clinical Practice Guidelines? No 1130 (Not Given - Provider: Elisa Guzman RCP - Reason: Other)1421 (Given - Provider: Elisa Guzman RCP)1922 (Given - Provider: Kaylei Bruner RCP)2300 (Canceled Entry - Provider: Tricia Sierra RN) 0721 (Given - Provider: Lolita Daigle RCP)0903 (MAR Hold - Provider: Automatic Transfer Provider - Reason: Patient not available)1100 (Dose Auto Held - Provider: Automatic Transfer Provider)1210 (MAR Unhold - Provider: Automatic Transfer Provider) levalbuterol (XOPENEX) nebulizer solution 1.25 mg 1.25 mg, nebulization, Every 4 hours while awake, First dose on Sat01/13/25 at 1130, Ordered in place of albuterol due to: tachycardia, arrhythmia, Implement INPATIENT/ED Bronchodilator Clinical Practice Guidelines? No 1420 (Given - Provider: Elisa Guzman RCP)1500 (Canceled Entry - Provider: Kaylie Bruner RCP - Comment: Given at 1420 per previous RT)192 (Given - Provider: Kaylie Bruner RCP) 0721 (Given - Provider: Lolita Daigle RCP)0903 (MAR Hold - Provider: Automatic Transfer Provider - Reason: Patient not available)1100 (Dose Auto Held - Provider: Automatic Transfer Provider)1210 (MAR Unhold - Provider: Automatic Transfer Provider) metoprolol tartrate (LOPRESSOR) tablet 50 mg (CANCELED) 50 mg, oral, 2 times daily, First dose on Sat01/13/25 at 0930, Hold for SBP< 100 or HR <60 Look-alike/sound-alike medication - verify indication for use. 927 (Given - Provider: Tricia Sierra RN)1946 (Given - Provider: Haydee Coleman RN) 741 (Given - Provider: Tricia Sierra RN) metroNIDAZOLE (FLAGYL) IVPB 500 mg/100 mL in iso-osmotic sodium chloride (5 mg/mL premix) (CANCELED) 500 mg, intravenous, at 100 mL/hr, Administer over 60 Minutes, Every 12 hours, First dose on Sat01/14/25 at 0700, Look-alike/sound-alike medication - verify indication for use., Indication: Intra-abdominal 0743 (New Bag - Provider: Tricia Sierra RN)0843 (Stop Bag - Provider: Tricia Sierra RN)0903 (JUL Hold - Provider: Automatic Transfer Provider - Reason: Patient not available)1210 (JUL Unhold - Provider: Automatic Transfer Provider) midodrine (PROAMATINE) tablet 5 mg 5 mg, oral, 3 times daily, First dose on [place] 01/14/25 at 0900, Look-alike/sound-alike medication - verify indication for use. 0900 (Due)0903 (JUL Hold - Provider: Automatic Transfer Provider - Reason: Patient not available)1210 (JUL Unhold - Provider: Automatic Transfer Provider) piperacillin-tazobactam (ZOSYN) IVPB 3.375 g/50 mL in iso-osmotic dextrose (67.5 mg/mL premix)(Linked Group 1) 3.375 g, intravenous, at 12.5 mL/hr, Administer over 4 Hours, Every 8 hours, First dose on [place] 01/14/25 at 1700, Dose adjusted per [facility] approved piperacillin-tazobactam policy. First dose of 3.375 gram to be 4 hours after 4.5 gram dose if frequency is every 8 hours or 8 hours after 4.5 gram dose if frequency is every 12 hours., Indication: Nosocomial intra-abdominal piperacillin-tazobactam (ZOSYN) IVPB 4.5 g/100 mL in iso-osmotic dextrose (45 mg/mL premix)(Linked Group 1) 4.5 g, intravenous, at 200 mL/hr, Administer over 30 Minutes, Once, On [place] 01/14/25 at 1300, For 1 dose, Loading dose per [facility] approved piperacillin-tazobactam policy. First dose of 3.375 gram to be 4 hours after 4.5 gram dose if frequency is every 8 hours or 8 hours after 4.5 gram dose if frequency is every 12 hours., Indication: Nosocomial intra-abdominal 1300 (Due) sodium chloride 0.9 % bolus (COMPLETED) 1,000 mL, intravenous, at 492 mL/hr, Administer over 122 Minutes, Once, On Sat01/12/25 at 1705, For 1 dose 1706 (New Bag - Provider: Arlen Hatfield, CHRISTOS)1908 (Stop Bag - Provider: Daniela Champion, CHRISTOS) sodium chloride 0.9 % bolus (COMPLETED) 500 mL, intravenous, at 492 mL/hr, Administer over 61 Minutes, Once, On Sat01/12/25 at 1935, For 1 dose 2002 (New Bag - Provider: Daniela Champion RN)2108 (Stop Bag - Provider: Daniela Champion RN) sodium chloride 0.9 % bolus (COMPLETED) 1,000 mL, intravenous, at 500 mL/hr, Administer over 2 Hours, Once, On Sat01/12/25 at 2015, For 1 dose 2107 (New Bag - Provider: Daniela Champion RN)2109 (Continue to Inpatient Floor - Provider: Daniela Champion RN)2123 (Rate/Dose Verify - Provider: Ruthie Jernigan RN)2125 (Rate/Dose Verify - Provider: Ruthie Jernigan RN)2126 (Rate/Dose Verify - Provider: Ruthie Jernigan RN)2317 (Rate/Dose Verify - Provider: Ruthie Jernigan RN)2319 (Stop Bag - Provider: Ruthie Jernigan RN) Continuous Medication Order 01/12/2025 01/13/2025 01/14/2025 dilTIAZem (CARDIZEM) infusion 125 mg/125 mL in sodium chloride 0.7% (1 mg/mL premix) (CANCELED) 10 mg/hr (10 mL/hr), intravenous, Continuous, Starting on Sat01/12/25 at 1705, Look-alike/sound-alike medication - verify indication for use., Monitoring Goals: HR, Monitoring Goal Direction: Within, Lower Parameter: 90, Upper Parameter: 120, Starting Dose (range 2.5 to 10 mg/hour): 10 mg/hr, Titration Dose Range (range 2.5 to 5 mg/hour): 2.5 - 5 mg/hour, Titration Frequency - As Frequent As: 15 minutes 1737 (Canceled Entry - Provider: Arlen Hatfield RN)1741 (New Bag - Provider: Arlen Hatfield RN)1807 (Rate/Dose Change - Provider: Arlen Hatfield RN)1999 (Stop Bag - Provider: Daniela Champion RN) dilTIAZem (CARDIZEM) infusion 125 mg/125 mL in sodium chloride 0.7% (1 mg/mL premix) (CANCELED) 15 mg/hr (15 mL/hr), intravenous, Continuous, Starting on Sat01/12/25 at 1930, Look-alike/sound-alike medication - verify indication for use., Monitoring Goals: HR, Monitoring Goal Direction: Within, Lower Parameter: 90, Upper Parameter: 130, Starting Dose (range 2.5 to 10 mg/hour): Other, Please specify: 15, Titration Dose Range (range 2.5 to 5 mg/hour): 2.5 - 5 mg/hour, Titration Frequency - As Frequent As: 15 minutes 2000 (New Bag - Provider: Daniela Champion RN)2108 (Continue to Inpatient Floor - Provider: Daniela Champion RN)2123 (Rate/Dose Verify - Provider: Ruthie Jernigan RN)2126 (Rate/Dose Verify - Provider: Ruthie Jernigan RN)2134 (Rate/Dose Verify - Provider: Ruthie Jernigan RN)2135 (Canceled Entry - Provider: Ruthie Jernigan RN - Comment: [Order ends at this time. Document the following action when infusion is complete: Stop Bag])2136 (Stop Bag - Provider: Ruthie Jernigan RN - Comment: [Order ends at this time. Document the following action when infusion is complete: Stop Bag]) dilTIAZem (CARDIZEM) infusion 125 mg/125 mL in sodium chloride 0.7% (1 mg/mL premix) 5-15 mg/hr (5-15 mL/hr), intravenous, Continuous, Starting on Sat01/12/25 at 2145, Look-alike/sound-alike medication - verify indication for use., Monitoring Goals: HR, Monitoring Goal Direction: Within, Lower Parameter: 90, Upper Parameter: 130, Starting Dose (range 2.5 to 10 mg/hour): Other, Please specify: 15, Titration Dose Range (range 2.5 to 5 mg/hour): 2.5 - 5 mg/hour, Titration Frequency - As Frequent As: 15 minutes 2144 (Canceled Entry - Provider: Ruthie Jernigan RN)2145 (Continue to Inpatient Floor - Provider: Ruthie Jernigan RN)2149 (Rate/Dose Change - Provider: Ruthie Jernigan RN)2214 (Rate/Dose Verify - Provider: Ruthie Jernigan RN)2238 (Rate/Dose Verify - Provider: Ruthie Jernigan RN)2245 (Rate/Dose Verify - Provider: Ruthie Jernigan RN)2322 (Rate/Dose Verify - Provider: Ruthie Jernigan RN)2325 (Rate/Dose Change - Provider: Ruthie Jernigan RN) 0259 (Rate/Dose Change - Provider: Ruthie Jernigan RN)0302 (Rate/Dose Verify - Provider: Ruthie Jernigan RN)0355 (Paused - Provider: Ruthie Jernigan RN)0356 (Paused - Provider: Ruthie Jernigan RN)0356 (Paused - Provider: Ruthie Jernigan RN)0405 (Restarted - Provider: Ruthie Jernigan RN)0406 (Stop Bag - Provider: Ruthie Jernigan RN)0406 (New Bag - Provider: Ivory Sanders RN)0422 (Rate/Dose Verify - Provider: Ruthie Jernigan RN)0427 (Rate/Dose Verify - Provider: Ruthie Jernigan RN)0430 (Rate/Dose Verify - Provider: Ruthie Jernigan RN)0516 (Paused - Provider: Ivory Sanders RN)0524 (Restarted - Provider: Ivory Sanders RN)0552 (Rate/Dose Verify - Provider: Ivory Sanders RN)0606 (Paused - Provider: Tricia Sierra RN)0613 (Restarted - Provider: Tricia Sierra RN)0826 (Paused - Provider: Tricia Sierra RN)0844 (Restarted - Provider: Tricia Sierra RN)0854 (Paused - Provider: Tricia Sierra RN)0903 (Restarted - Provider: Tricia Sierra RN)0920 (Paused - Provider: Tricia Sierra RN)0924 (Restarted - Provider: Tricia Sierra RN)0940 (Paused - Provider: Tricia Sierra, RN)0943 (Restarted - Provider: Tricia Sierra, RN)1311 (Rate/Dose Change - Provider: Tricia Sierra RN)1326 (Paused - Provider: Tricia Sierra RN)1329 (Restarted - Provider: Tricia Sierra RN)1330 (Stop Bag - Provider: Tricia Sierra RN)1744 (Not Given - Provider: Tricia Sierra RN - Reason: Order parameters not met) 0903 (JUL Hold - Provider: Automatic Transfer Provider - Reason: Patient not available)1210 (JUL Unhold - Provider: Automatic Transfer Provider) norepinephrine (LEVOPHED) infusion 8 mg/250 mL in sod chlor 0.9% (0.032 mg/mL PMX) 0.01-0.4 mcg/kg/min 83.2 kg (1.56-62.4 mL/hr, rounded to 1.6-62.4 mL/hr), intravenous, Continuous, Starting on [place] 01/14/25 at 1245, Preferred central line administration. Start at 0.04 mcg/kg/min. Titrate by 0.02 mcg/kg/min every 5 min to achieve MAP >65 or SBP >100. VESICANT (RED) Requires Smart Pump., Indication: Hypotension, Sequence of Pressors - Use this medication: First, Wean Sequence: Wean First 1213 (New Bag - Provider: Cynthia Wheeler RN)1506 (Due: Order Ending - Provider: Automatic Discharge Provider - Comment: [Order ends at this time. Document the following action when infusion is complete: Stop Bag]) propofoL (DIPRIVAN) infusion 5 mcg/kg/min 83.2 kg (2.496 mL/hr, rounded to 2.5 mL/hr), intravenous, Continuous, Starting on [place] 01/14/25 at 1245, Notify prescriber if rate exceeds 50 mcg/kg/min. (Max dose for status epilepticus is 200 mcg/kg/min). Check triglyceride level every 72 hours while on propofol. Look-alike/sound-alike medication - verify indication for use. Tubing and any unused portions of propofol vials should be discarded after 12 hours., Monitoring Goals: RASS, Starting Dose (range 5 to 30 mcg/kg/min): 5 mcg/kg/min, Titration Dose Range (range 5 to 10 mcg/kg/min): 5 - 10 mcg/kg/min, Titration Frequency - As Frequent As (range 1 to 3 minutes): 1 minute, Indication: Sedation, Sequence of Sedation- Use this medication: First, Wean Sequence: Wean First 1213 (Continued from Other Dept/Pre-Hospital - Provider: Cynthia Wheeler RN - Comment: fron surgical suite)1344 (New Bag - Provider: Tricia Sierra RN)1506 (Due: Order Ending - Provider: Automatic Discharge Provider - Comment: [Order ends at this time. Document the following action when infusion is complete: Stop Bag]) sodium chloride 0.9 % infusion 75 mL/hr, intravenous, Continuous, Starting on Sat01/12/25 at 2009, For 1 day 2056 (New Bag - Provider: Daniela Champion RN)2109 (Continue to Inpatient Floor - Provider: Daniela Champion RN)2123 (Rate/Dose Verify - Provider: Ruthie Jernigna RN)2126 (Rate/Dose Verify - Provider: Ruthie Jernigan RN)232 (Rate/Dose Verify - Provider: Ruthie Jernigan RN) 030 (Rate/Dose Verify - Provider: Ruthie Jernigan RN)0402 (Paused - Provider: Ruthie Jernigan RN)0405 (Restarted - Provider: Ruthie Jernigan RN)0422 (Rate/Dose Verify - Provider: Ruthie Jernigan RN)0427 (Rate/Dose Verify - Provider: Ruthie Jernigan RN)0430 (Rate/Dose Verify - Provider: Ruthie Jernigan RN)0552 (Rate/Dose Verify - Provider: Ivory Sanders RN)1032 (Rate/Dose Verify - Provider: Tricia Sierra RN)1133 (Stop Bag - Provider: Tricia Sierra RN)184 (Restarted - Provider: Haydee Coleman RN)184 (Paused - Provider: Haydee Coleman RN)184 (Paused - Provider: Haydee Coleman RN)184 (Restarted - Provider: Haydee Coleman RN)1952 (Paused - Provider: Haydee Coleman RN)2022 (Restarted - Provider: Haydee Coleman RN)225 (Rate/Dose Verify - Provider: Haydee Coleman RN) 0404 (Paused - Provider: Haydee Coleman RN)0449 (Restarted - Provider: Haydee Coleman RN)0451 (Rate/Dose Verify - Provider: Haydee Coleman, CHRISTOS) sodium chloride 0.9 % infusion 1,000 mL, intravenous, at 30 mL/hr, Continuous, Starting on Sat01/14/25 at 1330, For 1 day 1329 (New Bag - Provider: Tricia Sierra, RN)1506 (Due: Order Ending - Provider: Automatic Discharge Provider - Comment: [Order ends at this time. Document the following action when infusion is complete: Stop Bag]) PRN Medication Order 01/12/2025 01/13/2025 01/14/2025 acetaminophen (TYLENOL EXTRA STRENGTH) tablet 500 mg 500 mg, oral, Every 6 hours PRN, headaches, temperature greater than 38 C, mild pain - pain scale 1-3, Starting on Sat01/12/25 at 2007, [Warning: Total Acetaminophen not to exceed more than 4 grams (4000 mg) in 24 hours] 0628 (Given - Provider: Ivory Sanders RN) 09 ([facility] Hold - Provider: Automatic Transfer Provider - Reason: Patient not available)1210 ([facility] Unhold - Provider: Automatic Transfer Provider) alum-mag hydroxide-simeth (MAALOX) 200-200-20 mg/5 mL suspension 30 mL 30 mL, oral, 4 times daily after meals and at bedtime as needed, dyspepsia, Starting on Sat01/12/25 at 2007, Look-alike/sound-alike medication - verify indication for use. Shake well., Indications: dyspepsia 0903 ([facility] Hold - Provider: Automatic Transfer Provider - Reason: Patient not available)1210 ([facility] Unhold - Provider: Automatic Transfer Provider) dextrose (GLUTOSE) 40 % gel 15 g 15 g, oral, As needed, low blood sugar, blood glucose less than 70 mg/dL, Starting on Sat01/12/25 at 2007, If patient conscious and taking PO. If blood glucose is not greater than 70 mg/dL after initial treatment, repeat treatment. 0903 ([facility] Hold - Provider: Automatic Transfer Provider - Reason: Patient not available)1210 ([facility] Unhold - Provider: Automatic Transfer Provider) dextrose 5 % (D5W) infusion 100 mL/hr, intravenous, Continuous PRN, blood glucose less than 70 mg/dL, Starting on Sat01/12/25 at 2007, For 365 days, Use immediately following dextrose 50% or glucagon treatment for patients who are unconscious or NPO. Contact prescriber for additional orders. If blood glucose is not greater than 70 mg/dL after initial treatment, repeat treatment. 902 ([facility] Hold - Provider: Automatic Transfer Provider - Reason: Patient not available)1209 ([facility] Unhold - Provider: Automatic Transfer Provider) dextrose 50 % in water (D50W) 50% solution 25 mL 25 mL, intravenous, As needed, low blood sugar, blood glucose less than 70 mg/dL and unconscious or NPO with IV access, Starting on Sat01/12/25 at 2007, Push over 1-3 minutes STAT. If conscious and not NPO, immediately follow with meal tray or high protein (7 grams) snack if tray not available. If NPO, initiate 5% dextrose in water at 100 mL/hr and contact prescriber for additional orders. If blood glucose is not greater than 70 mg/dL after initial treatment, repeat treatment. VESICANT (RED) Warning: HYPERTONIC solution. 902 ([facility] - Provider: Automatic Transfer Provider - Reason: Patient not available)1209 ([facility] Unhold - Provider: Automatic Transfer Provider) glucagon HCL injection 1 mg 1 mg, intramuscular, As needed, low blood sugar, blood glucose less than 70 mg/dL and unconscious or NPO without IV access., Starting on Sat01/12/25 at 2007, If conscious and not NPO, immediately follow with meal tray or high protein (7Grams) snack if tray not available. If NPO, initiate IV 5% Dextrose/Water at 100 mL/hr and contact prescriber for additional orders. If blood glucose is not greater than 70 mg/dL after initial treatment, repeat treatment. 902 ([facility] - Provider: Automatic Transfer Provider - Reason: Patient not available)1209 ([facility] Unhold - Provider: Automatic Transfer Provider) HYDROcodone-acetaminophen (NORCO) 5-325 mg per tablet 1 tablet 1 tablet, oral, Every 6 hours PRN, moderate pain - pain scale 4-6, Starting on Sat01/13/25 at 1122, Look-alike/sound-alike medication - verify indication for use. 1139 (Given - Provider: Tricia Sierra RN)1754 (Given - Provider: Tricia Sierra RN) 902 ([facility] Hold - Provider: Automatic Transfer Provider - Reason: Patient not available)1210 ([facility] Unhold - Provider: Automatic Transfer Provider) magnesium sulfate IVPB 2000 mg/50 mL in iso-osmotic water (40 mg/mL premix) 2,000 mg, intravenous, at 25 mL/hr, Administer over 120 Minutes, As needed, Magnesium level 1.7 to 1.9 mg/dL, or Ionized Magnesium level 0.45 to 0.5 mmol/L., Starting on Sat01/12/25 at 2007, Recheck magnesium level 4 hours after infusion complete. With each magnesium result continue the replacement orders as needed. 0903 ([facility] Hold - Provider: Automatic Transfer Provider - Reason: Patient not available)1210 ([facility] Unhold - Provider: Automatic Transfer Provider) magnesium sulfate IVPB 4000 mg/100 mL in iso-osmotic water (40 mg/mL premix) 4,000 mg, intravenous, at 25 mL/hr, Administer over 240 Minutes, As needed, Magnesium level 1.6 mg/dL or less, or Ionized Magnesium level 0.44 mmol/L or less, Starting on Sat01/12/25 at 2007, Recheck magnesium level 4 hours after infusion complete. With each magnesium result continue the replacement orders as needed. 0638 (New Bag - Provider: Ivory Sanders RN)1026 (Stop Bag - Provider: Tricia Sierra, CHRISTOS)1032 (Stop Bag - Provider: Tricia Sierra, CHRISTOS)1038 (Stop Bag - Provider: Tricia Sierra, CHRISTOS) 0903 ([facility] Hold - Provider: Automatic Transfer Provider - Reason: Patient not available)1210 ([facility] Unhold - Provider: Automatic Transfer Provider) ondansetron (PF) (ZOFRAN) injection 4 mg 4 mg, intravenous, Every 4 hours PRN, nausea, vomiting, Starting on Sat01/12/25 at 2007, Intravenous administration preferred to be given over 2-5 minutes. 0903 ([facility] Hold - Provider: Automatic Transfer Provider - Reason: Patient not available)1210 ([facility] Unhold - Provider: Automatic Transfer Provider) potassium chloride (KAYCIEL) 20 mEq/15 mL solution 30-40 mEq(Linked Group 2) 30-40 mEq, oral, As needed, Potassium Supplementation, Starting on Sat01/12/25 at 2007, Progress to oral potassium replacement when patient tolerating oral intake. If dose administered, recheck potassium level 4 hours after last dose. For potassium level 3.4 to 3.8 mmol/L and GFR 30 mL/min or greater=30 mEq. For potassium level 3.1 to 3.3 mmol/L and GFR 30 mL/min or greater=40 mEq. For potassium level 3 mmol/L or less and GFR 30 mL/min or greater=50 mEq. Must dilute before use - Mix in 3-8 ounces of water or juice before administration When administering in feeding tube, flush before and after per policy and monitor potassium levels 0628 (See Alternative - Provider: Ivory Sanders RN) 0903 ([facility] Hold - Provider: Automatic Transfer Provider - Reason: Patient not available)1210 ([facility] Unhold - Provider: Automatic Transfer Provider) potassium chloride (KLOR-CON M 20) CR tablet 30-40 mEq(Linked Group 2) 30-40 mEq, oral, As needed, Potassium Supplementation, Starting on Sat01/12/25 at 2007, Progress to oral potassium replacement when patient tolerating oral intake. If dose administered, recheck potassium level 4 hours after last dose. For potassium level 3.4 to 3.8 mmol/L and GFR 30 mL/min or greater=30 mEq. For potassium level 3.1 to 3.3 mmol/L and GFR 30 mL/min or greater=40 mEq. For potassium level 3 mmol/L or less and GFR 30 mL/min or greater=50 mEq. Do not crush or chew. 0628 (Given - Provider: Ivory Sanders RN) 0903 ([facility] Hold - Provider: Automatic Transfer Provider - Reason: Patient not available)1210 ([facility] Unhold - Provider: Automatic Transfer Provider) potassium chloride IVPB 10 mEq/100 mL in water (0.1 mEq/mL premix)(Linked Group 2) 10 mEq, intravenous, at 100 mL/hr, Administer over 60 Minutes, As needed, POTASSIUM REPLACEMENT, Starting on Sat01/12/25 at 2007, IV if unable to use oral/enteral with the current dosing strategies Potassium level 3 mmol/L or less administer Potassium Chloride 50 mEq Potassium level 3.1 to 3.3 mmol/L administer Potassium Chloride 40 mEq Potassium level 3.4 to 3.8 mmol/L administer Potassium Chloride 30 mEq Use central line when applicable. Recheck potassium level 1 hour after total IVPB infusion complete, With each potassium result continue the replacement orders as needed VESICANT (YELLOW) Infuse each 10 mEq over a minimum of 1 hour. 0628 (See Alternative - Provider: Ivory Sanders RN) 09 ([facility] Hold - Provider: Automatic Transfer Provider - Reason: Patient not available)1210 ([facility] Unhold - Provider: Automatic Transfer Provider) sennosides-docusate sodium (SENOKOT-S) 8.6-50 mg 1 tablet 1 tablet, oral, Every 12 hours PRN, constipation, Starting on Sat01/12/25 at 2008 0903 ([facility] Hold - Provider: Automatic Transfer Provider - Reason: Patient not available)1210 ([facility] Unhold - Provider: Automatic Transfer Provider) sodium chloride 0.9 % flush 3 mL 3 mL, intravenous, As needed, line care, before and after each intermittent use, Starting on Sat01/12/25 at 1700 0903 ([facility] Hold - Provider: Automatic Transfer Provider - Reason: Patient not available)121 ([facility] Unhold - Provider: Automatic Transfer Provider) sodium chloride 0.9% (NS) irrigation bottle (CANCELED) As needed, Starting on Sat01/14/25 at 1020, Intra-op 1020 (Given - Provid er: Delmar Ramirez MD)1034 (Given - Provider: Delmar Ramirez MD)1050 (Given - Provider: Delmar Ramirez MD) Linked Groups Order Group 1: piperacillin-tazobactam (ZOSYN) IVPB 4.5 g/100 mL in iso-osmotic dextrose (45 mg/mL premix)Jump to med 4.5 g, intravenous, at 200 mL/hr, Administer over 30 Minutes, Once, On Sat01/14/25 at 1300, For 1 dose, Loading dose per [facility] approved piperacillin-tazobactam policy. First dose of 3.375 gram to be 4 hours after 4.5 gram dose if frequency is every 8 hours or 8 hours after 4.5 gram dose if frequency is every 12 hours., Indication: Nosocomial intra-abdominal Followed by piperacillin-tazobactam (ZOSYN) IVPB 3.375 g/50 mL in iso-osmotic dextrose (67.5 mg/mL premix)Jump to med 3.375 g, intravenous, at 12.5 mL/hr, Administer over 4 Hours, Every 8 hours, First dose on [place] 01/14/25 at 1700, Dose adjusted per [facility] approved piperacillin- tazobactam policy. First dose of 3.375 gram to be 4 hours after 4.5 gram dose if frequency is every 8 hours or 8 hours after 4.5 gram dose if frequency is every 12 hours., Indication: Nosocomial intra-abdominal Group 2: potassium chloride (KLOR-CON M 20) CR tablet 30-40 mEqJump to med 30-40 mEq, oral, As needed, Potassium Supplementation, Starting on Sat01/12/25 at 2007, Progress to oral potassium replacement when patient tolerating oral intake. If dose administered, recheck potassium level 4 hours after last dose. For potassium level 3.4 to 3.8 mmol/L and GFR 30 mL/min or greater=30 mEq. For potassium level 3.1 to 3.3 mmol/L and GFR 30 mL/min or greater=40 mEq. For potassium level 3 mmol/L or less and GFR 30 mL/min or greater=50 mEq. Do not crush or chew. Or potassium chloride (KAYCIEL) 20 mEq/15 mL solution 30-40 mEqJump to med 30-40 mEq, oral, As needed, Potassium Supplementation, Starting on Sat01/12/25 at 2007, Progress to oral potassium replacement when patient tolerating oral intake. If dose administered, recheck potassium level 4 hours after last dose. For potassium level 3.4 to 3.8 mmol/L and GFR 30 mL/min or greater=30 mEq. For potassium level 3.1 to 3.3 mmol/L and GFR 30 mL/min or greater=40 mEq. For potassium level 3 mmol/L or less and GFR 30 mL/min or greater=50 mEq. Must dilute before use - Mix in 3-8 ounces of water or juice before administration When administering in feeding tube, flush before and after per policy and monitor potassium levels Or potassium chloride IVPB 10 mEq/100 mL in water (0.1 mEq/mL premix)Jump to med 10 mEq, intravenous, at 100 mL/hr, Administer over 60 Minutes, As needed, POTASSIUM REPLACEMENT, Starting on Sat01/12/25 at 2007, IV if unable to use oral/enteral with the current dosing strategies Potassium level 3 mmol/L or less administer Potassium Chloride 50 mEq Potassium level 3.1 to 3.3 mmol/L administer Potassium Chloride 40 mEq Potassium level 3.4 to 3.8 mmol/L administer Potassium Chloride 30 mEq Use central line when applicable. Recheck potassium level 1 hour after total IVPB infusion complete, With each potassium result continue the replacement orders as needed VESICANT (YELLOW) Infuse each 10 mEq over a minimum of 1 hour. documented in this encounter Additional Health Concerns Assessment Noted Time PHQ-9 Depression Total Score: 0 04/15/20 17 1:00 PM EST documented as of this encounter Care Teams Jack Tamp Operator Relationship Specialty Start Date End Date No Pcp, [place] [address] PCP - General Family Medicine 11/24/18 documented as of this encounter
--- OUTSIDE RECORDS SUMMARY | 2025-01-14 08:30 | XMS_ITS | Encounter Summary ---
Author Organization [facility] [employer] [facility] tem Address [id number] [address] [place] [address] Care Team Providers Care Conference And Event Organiser Name Role Phone No Pcp, No Pcp Primary Care Provider Unavailabl e Reason for Visit * Reason Comments Fall Pt fell this morning around 11, pt couldn't get up and neighbors heard him banging and called squad * Auth/Cert Specialty Diagnoses / Procedures Referred By Contac t Referred To Contact Diagnoses Tachycardia Atrial fibrillation with rapid ventricular response (CMS-HCC) [facility] - Emergency [address] [place] [address] Phone: tel: fax: Referral ID Status Reason Start Date Expiration Date Visits Re quested Visits Authorized [id number] 1 1 Encounter Details Date Type Department Care Team (Late st Contact Info) Description 01/14/2025 8:30 AM EDT - 01/14/2025 10:20 AM EDT Surgery [facility] - Surgery [address] [place] [address] Delmar Ramirez MD [address] [place] [address] REPAIR HERNIA INGUINAL Surgery Details Date/Time Status Location OR Service Patient Class Case Class Case Type Trauma Case? 01/14/2025 8:30 AM Posted [facility] OR General Inpatient Class III Emergency Panel 1 Procedure LRB Anes Op Region Wound Class Comments REPAIR HERNIA INGUINAL Left General Groin Dirty o r Infected ORCHIECTOMY Left General Scrotum Dirty or Infected CREATION COLOSTOMY Left General Abdomen Dirty or In fected Surgeon Surgeon Role Service Panel Jason Adorno DO Assisting General 1 Delmar Ramirez MD Primary General 1 documented in this encounter Social History Tobacco Use Types Packs/Day Years Used Date Smoking Tobacco: Never Smokeless Tobacco: Never Alcohol Use Standard Drinks/Week Comments No 0 (1 standard drink = 0.6 oz pur e alcohol) [facility] Utilities Answer Date Recorded In the [...] Pressure 101/54 01/14/2025 7:10 AM EDT Pulse 141 01/14/2025 7:36 AM EDT Temperature 36.8 C (98.2 F) 01/14/2025 7:10 AM EDT Respiratory Rate 22 01/14/2025 7:36 AM EDT Oxygen Saturation 97% 01/14/2025 7:36 AM EDT Inhaled Oxygen Concentration - - Weight 83.2 kg (183 lb 6.8 oz) 01/14/2025 5:13 A M EDT Height 177.8 cm (5' 10 ) 01/13/2025 5:00 AM EDT Body Mass Index 26.32 01/13/2025 5:00 AM EDT documented in this encounter Discharge Summaries * Ralph Tamayo MD - 01/14/2025 12:25 PM EDT Images from the original note were not included. [facility] INTERNAL MEDICINE [facility] [address] [facility] [id number] Hospital Medicine Discharge Summary Patient: Paul Guerrero Date of : 1950 Room: [facility][note 3]/ Encounter date: 01/14/25 Hospital Day: 3 DATE OF ADMISSION: 01/12/2025 DATE OF DISCHARGE:01/14/2025 DISCHARGE DIAGNOSES Principal Problem: Atrial fibrillation with rapid ventricular response (CMS-HCC) Active Problems: Stroke (CMS-HCC) Cerebral infarction (CMS-HCC) Cardiomyopathy, nonischemic (CMS-HCC) [facility] General surgery PCP: NO PCP, NO [...] catheter insertion. Will need urology. Transfer to [facility] for urology and higher level of [...] Abnormality Status --------- ------ Troponin I, High Sensiti...[[id number]] Abnormal Final result Troponin I, High Sensiti...[[id number]] Abnormal Final result Please view results for [...] operators who are performing tests using either [employer] or [employer] systems and islimited to laboratories that meet [...] with specimenrepeat. Fact Sheet for Healthcare Providers: https://www.fda.gov/media/066417/download Fact Sheet for Patients: https://www.fda.gov/media/556213/download Lactate w/ Reflex Collection Time: 01/12/25 5:23 [...] to the algorithms linked below. Emergency Patient: [email or web address] [email or web address] Inpatient: [email or web address] Lactate Collection Time: 01/12/25 8:50 PM Result [...] Range Extra Tube Auto Resulted Extra Urine Talmage Collection Time: 01/13/25 6:55 AM Specimen: Urine, [...] Extra Tubes. Procedure Abnormality Status --------- ------ [facility] TOP[[id number]] Final result Please view results for these [...] ultrasound of the kidneys and urinary bladder. [id number] Finalized by Russell Brantley MD on 01/13/2025 [...] minutes were spent on discharging this patient. Viviana Carr APRN-DYLAN 01/14/2025 12:25 PM [facility] Internal Medicine 7AM-7PM & 7PM-7AM: EpicChat or [...] services available here . Patient transferred to [facility] icu Physician Attestation I, RALPH TMAAYO MD, personally performed a face to face [...] in this encounter Discharge Instructions * Appointments* Codeyjankiadwoa Pinto Tha - 01/13/2025 3:52 PM EDT YOUR SCHEDULED APPOINTMENTS Please make note of this in your schedule as to not miss or call to reschedule. Thank you! [facility] [address], [place] [address] P# Monday February 10, 2025 @ 9:45am [...] For NEW patients, MD will not prescribe usp pain medication. documented in this encounter Medications [...] Daily Amount: 60 mg 3 tablet 01/22/2025 documented as of this encounter Progress Notes * Eleazar Meyer RPH - 01/14/2025 12:30 PM EDT [facility] Department of Pharmacy Pharmacist to Physician Communication The dose of piperacillin/tazobactam for intra-abdominal infection has been changed to 4.5g IV x 1 infused over 30 minutes followed by 3.375g IV every 8 hours infused over 4 hours starting 4 hours after the loading dose per the [facility] approved renal dosing guidelines, based on [...] unless it is touched. Has tenderness. WBC 55630. Low-grade fever yesterday. Denies abdominal pain Objective: [...] Patterson RPH - 01/14/2025 6:31 AM EDT [facility] Department of Pharmacy Pharmacist to Physician Communication The dose of metronidazole for intra-abdominal infection has been changed to 500 mg IV every 12 hours per the [facility] approved medical supplies shortage bulletin. 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 Hospital Occurrences: Pt admitted with recent fall Admit Diagnosis: Patient Active Problem List Diagnosis Contracture of finger joint Stroke (CMS-HCC) Paroxysmal atrial fibrillation (CMS-HCC) Bluish skin discoloration Diverticulosis of colon Gastritis and duodenitis GI bleed Mesenteric artery stenosis Cerebral infarction (CMS-HCC) Cardiomyopathy, nonischemic (CMS-HCC) Atrial fibrillation with rapid ventricular response (CMS-HCC) Past Medical History: Past Medical History: Diagnosis Date Acute renal failure (ARF) occured at time of GI bleed Atrial fibrillation (CMS-HCC) Bluish skin discoloration CHF (congestive heart failure) ([facility]) 2012 initial EF 15 % // last ECHO 55 % Cholecystitis Contracture of finger joint Patient had an accident on a ladder causing deformity and this eventually developed into a contracture. Patient elected not to have surgery. CVA (cerebral vascular accident) ([facility]) Diverticulosis of colon Dyspnea Elevated LFTs occured at time of GI bleed Gastritis and duodenitis GI bleed upper bleed Hiatal hernia small Inguinal hernia very larger hernia/ dx when the colonoscopy scope felt in the scrotum Mesenteric artery stenosis no surgery / [facility] / Dr Bruce/ CTA Occult blood in stools abn fit test Peptic ulceration GI bleed Pneumonia Respiratory failure ([facility]) occured at time of GI bleed Stroke ([facility]) 06/2016 rx with TPA Past Surgical History: [...] Results from last 3 days Lab Units 01/13/257 01/12/25 1711 WBC x10E9/L 17.3* 22.7* HEMOGLOBIN g/dL 12.5* 14.6 HEMATOCRIT % 37.0* 43.9 PLATELETS X10E9/L 211 208 MCV fL 93 93 No results found for: [id number] No results found for: FOLATE Lab Results [...] 500 mg 500 mg oral Q6H PRN Ab, FAITH-VETERINARIAN POULTRY 500mg at 01/13/25 0628 alum-mag hydroxide-simeth (MAALOX) 200-200-20 mg/5 mL suspension 30 mL 30 mL oral PCHSP AbPAT cefTRIAXone (ROCEPHIN) IVPB 2000 mg/50 mL in iso-osmotic dextrose (40 mg/mL premix) 2,000 mg intravenous Q24H AbPAT espinosa dextrose (GLUTOSE) 40 % gel 15 g 15 g oral PRN Ab, FAITH-DYLAN dextrose 5 % (D5W) infusion 100 mL/hr intravenous Continuous PRN FAITH espinosa-DYLAN dextrose 50 % in water (D50W) 50% solution 25 mL 25 mL intravenous PRN PAT dilTIAZem (CARDIZEM) infusion 125 mg/125 mL in sodium chloride 0.7% (1 mg/mL premix) 5-15 mg/hr intravenous Continuous Ralph Tamayo MD 15 mL/hr at 01/13/25 0552 15 mg/hr at 01/13/25 0552 glucagon HCL injection 1 mg 1 mg intramuscular PRN PAT espinosa HYDROcodone-acetaminophen (NORCO) 5-325 mg per tablet 1 [...] (40 mg/mL premix) 2,000 mg intravenous PRN FAITH-DYLAN magnesium sulfate IVPB 4000 mg/100 mL in iso-osmotic water (40 mg/mL premix) 4,000 mg intravenous PRN AbFAITH espinosa-VETERINARIAN POULTRY Stopped at 01/13/25 1038 metoprolol tartrate (LOPRESSOR) tablet 50 mg 50 mg oral BID Viviana Carr APRN- VETERINARIAN POULTRY 50 mg at 01/13/25 0928 ondansetron (PF) (ZOFRAN) injection 4 mg 4 mg intravenous Q4H PRN Abed Ramadan, POLICY SERVICE COORDINATOR-VETERINARIAN POULTRY potassium chloride (KLOR-CON M 20) CR tablet 30-40 mEq 30-40 mEq oral PRN Abed Ramadan, POLICY SERVICE COORDINATOR-VETERINARIAN POULTRY 30mEq at 01/13/25 0628 Or potassium chloride (KAYCIEL) 20 mEq/15 mL solution 30-40 mEq 30-40 mEq oral PRN Abed Ramadan, POLICY SERVICE COORDINATOR-VETERINARIAN POULTRY Or potassium chloride IVPB 10 mEq/100 mL in water (0.1 mEq/mL premix) 10 mEq intravenous PRN Abed Ramadan, POLICY SERVICE COORDINATOR-VETERINARIAN POULTRY sennosides-docusate sodium (SENOKOT-S) 8.6-50 mg 1 tablet 1 tablet oral Q12H PRN Abed Ramadan, POLICY SERVICE COORDINATOR-VETERINARIAN POULTRY sodium chloride 0.9 % flush 3 mL 3 mL intravenous PRN Aleks He MD sodium chloride 0.9 % infusion 75 mL/hr intravenous Continuous Abed Ramadan, POLICY SERVICE COORDINATOR-VETERINARIAN POULTRY 75 mL/hr at 01/13/25 0552 Rate Verify [...] 11/25/17 75 kg (165 lb 6.4 oz) Simpson Body Weight: 75 kg Percent Simpson Body Weight: 109 % Body Mass Index: [...] Goal achieved Viridiana Wiley RD.,LD. Clinical Dietitian [facility] [phone] 01/13/25 documented in this encounter H&P Notes * Ralph Tamayo MD - 01/13/2025 8:54 AM EDT Images from the original note were not included. [facility] INTERNAL MEDICINE [facility] - ACUTE [facility]ARE [address] [facility] [address] Hospital Medicine History & Physical Patient: Paul Guerrero Date of : 1950 Room: PCP: NO PCP, NO PCP Admission date: [...] of Acute renal failure (ARF), Atrial fibrillation ([facility]), Bluish skin discoloration, CHF (congestive heart failure) ([facility]) (2012), Cholecystitis, Contracture of finger joint, CVA (cerebral vascular accident) ([facility]), Diverticulosis of colon, Dyspnea, Elevat ed LFTs, Gastritis and duodenitis, GI bleed, Hiatal hernia, Inguinal hernia, Mesenteric artery stenosis, Occult blood in stools, Peptic ulceration, Pneumonia, Respiratory failure ([facility]), and Stroke ([facility]) (06/2016). Past Surgical History: Patient has a [...] 5-15 mg/hr, Last Rate: 15 mg/hr (01/13/25 05) sodium chloride 0.9 %, 75 mL/hr, Last Rate: 75 mL/hr (01/13/25551) As Needed: acetaminophen alum-mag hydroxide-simeth dextrose dextrose [...] Abnormality Status --------- ------ Troponin I, High Sensiti...[[id number]] Abnormal Final result Troponin I, High Sensiti...[[id number]] Abnormal Final result Please view results for [...] operators who are performing tests using either [employer] or [employer] systems and islimited to laboratories that meet [...] with specimenrepeat. Fact Sheet for Healthcare Providers: https://www.fda.gov/media/710994/download Fact Sheet for Patients: https://www.fda.gov/media/767754/download Lactate w/ Reflex Collection Time: 01/12/25 5:23 [...] to the algorithms linked below. Emergency Patient: [email or web address] Inpatient: [email or web address] Lactate Collection Time: 01/12/25 8:50 PM Result [...] Range Extra Tube Auto Resulted Extra Urine Talmage Collection Time: 01/13/25 6:55 AM Specimen: Urine, [...] 2-4 Days PAT Blandon 01/13/2025 8:54 AM [facility] Internal Medicine 7AM-7PM & 7PM-7AM: EpicChat or page through [employer]. PAT Blandon 01/13/25 4408 Physician Attestation I, RALPH TAMAYO MD, personally [...] from the original note were not included. [facility] CARDIOLOGY [address] [place] [address] HISTORY & PHYSICAL / CONSULT NOTE Paul [...] CVA 2016, history of GI bleed in 2017 Patient had a 4 event at home [...] at time of GI bleed Atrial fibrillation ([facility]) Bluish skin discoloration CHF (congestive heart failure) ([facility]) 2012 initial EF 15 % // last ECHO 55 % Cholecystitis Contracture of finger joint Patient had an accident on a ladder causing deformity and this eventually developed into a contracture. Patient elected not to have surgery. CVA (cerebral vascular accident) (CMS-HCC) Diverticulosis of colon Dyspnea Elevated LFTs occured at time of GI bleed Gastritis and duodenitis GI bleed upper bleed Hiatal hernia small Inguinal hernia very larger hernia/ dx when the colonoscopy scope felt in the scrotum Mesenteric artery stenosis no surgery / [facility] / Dr Bruce/ CTA Occult blood in stools abn fit test Peptic ulceration GI bleed Pneumonia Respiratory failure ([facility]) occured at time of GI bleed Stroke ([facility]) 06/2016 rx with TPA Previous Surgical History: Past Surgical History: Procedure Laterality Date CARDIAC CATHETERIZATION COLONOSCOPY diverticulosis / lg ingunial hernia ESOPHAGOGASTRODUODENOSCOPY severe errosis gastritis and duodenitis TONSILLECTOMY Allergies: No Known Allergies Hospital Meds: Current Facility-Administered Medications Medication Dose Route Frequency Provider Last Rate Last Admin acetaminophen (TYLENOL EXTRA STRENGTH) tablet 500 mg 500 mg oral Q6H PRN Abed , POLICY SERVICE COORDINATOR-VETERINARIAN POULTRY 500mg at 01/13/25 0628 alum-mag hydroxide-simeth (MAALOX) 200-200-20 mg/5 mL suspension 30 mL 30 mL oral PCHSP Abed , POLICY SERVICE COORDINATOR-VETERINARIAN POULTRY cefTRIAXone (ROCEPHIN) IVPB 2000 mg/50 mL in iso-osmotic dextrose (40 mg/mL premix) 2,000 mg intravenous Q24H Abed , POLICY SERVICE COORDINATOR-VETERINARIAN POULTRY dextrose (GLUTOSE) 40 % gel 15 g 15 g oral PRN Abed , FAITH-VETERINARIAN POULTRY dextrose 5 % (D5W) infusion 100 mL/hr intravenous Continuous PRN Abed n, FAITH-VETERINARIAN POULTRY dextrose 50 % in water (D50W) 50% solution 25 mL 25 mL intravenous PRN Abed , POLICY SERVICE COORDINATOR-VETERINARIAN POULTRY digoxin (LANOXIN) injection 500 mcg 500 mcg intravenous Once Dar Gaines MD dilTIAZem (CARDIZEM) infusion 125 mg/125 mL in sodium chloride 0.7% (1 mg/mL premix) 5-15 mg/hr intravenous Continuous Ralph Tamayo MD Stopped at 01/13/25 1330 glucagon HCL injection 1 mg 1 mg intramuscular PRN Abed , POLICY SERVICE COORDINATOR-VETERINARIAN POULTRY HYDROcodone-acetaminophen (NORCO) 5-325 mg per tablet 1 tablet 1 tablet oral Q6H PRN PAT Blandon 1 tablet at 01/13/25 1139 ipratropium (ATROVENT) 0.02 % nebulizer solution 0.5 mg 0.5 mg nebulization Q4H While awake PAT Blandon 0.5 mg at 01/13/25 1421 levalbuterol (XOPENEX) nebulizer solution 1.25 mg 1.25 mg nebulization Q4H While awake Viviana Carr APRN-DYLAN 1.25 mg at 01/13/25 1420 magnesium sulfate IVPB 2000 mg/50 mL in iso-osmotic water (40 mg/mL premix) 2,000 mg intravenous PRN Abed Ramadan, POLICY SERVICE COORDINATOR-VETERINARIAN POULTRY magnesium sulfate IVPB 4000 mg/100 mL in iso-osmotic water (40 mg/mL premix) 4,000 mg intravenous PRN Abed Ramadafrancisca, POLICY SERVICE COORDINATOR-VETERINARIAN POULTRY Stopped at 01/13/25 1026 metoprolol tartrate (LOPRESSOR) tablet 50 mg 50 mg oral BID Viviana Carr APRN- DYLAN 50 mg at 01/13/25 0928 ondansetron (PF) (ZOFRAN) injection 4 mg 4 mg intravenous Q4H PRN Abed Ramadan, POLICY SERVICE COORDINATOR-VETERINARIAN POULTRY potassium chloride (KLOR-CON M 20) CR tablet 30-40 mEq 30-40 mEq oral PRN Abed Ramadan, POLICY SERVICE COORDINATOR-VETERINARIAN POULTRY 30mEq at 01/13/25 0628 Or potassium chloride (KAYCIEL) 20 mEq/15 mL solution 30-40 mEq 30-40 mEq oral PRN Abed Ramadan, POLICY SERVICE COORDINATOR-VETERINARIAN POULTRY Or potassium chloride IVPB 10 mEq/100 mL in water (0.1 mEq/mL premix) 10 mEq intravenous PRN Abed Ramadan, POLICY SERVICE COORDINATOR-VETERINARIAN POULTRY sennosides-docusate sodium (SENOKOT-S) 8.6-50 mg 1 tablet 1 tablet oral Q12H PRN Abed Ramadan, POLICY SERVICE COORDINATOR-VETERINARIAN POULTRY sodium chloride 0.9 % flush 3 mL 3 mL intravenous PRN Aleks He MD sodium chloride 0.9 % infusion 75 mL/hr intravenous Continuous Abed Ramdelmy, POLICY SERVICE COORDINATOR-VETERINARIAN POULTRY Stopped at 01/13/25 1133 Home Meds: Prior [...] total) before bedtime. 07/16/24 Yes PAT Sparks Social History: TOBACCO: reports that he has [...] 96 95 100 Resp: 24 (!) 30 25 21 Temp: (!) 38.2 ??C (100.8 ??F) 36.8 [...] This note was completed using a voice beet topper system. Every effort was made to ensure accuracy. However, inadvertent computerized beet topper errors may be present. * Delmar Ramirez [...] at time of GI bleed Atrial fibrillation ([facility]) Bluish skin discoloration CHF (congestive heart failure) ([facility]) 2012 initial EF 15 % // last ECHO 55 % Cholecystitis Contracture of finger joint Patient had an accident on a ladder causing deformity and this eventually developed into a contracture. Patient elected not to have surgery. CVA (cerebral vascular accident) ([facility]) Diverticulosis of colon Dyspnea Elevated LFTs occured at time of GI bleed Gastritis and duodenitis GI bleed upper bleed Hiatal hernia small Inguinal hernia very larger hernia/ dx when the colonoscopy scope felt in the scrotum Mesenteric artery stenosis no surgery / [facility] / [place]/ CTA Occult blood in stools abn fit test Peptic ulceration GI bleed Pneumonia Respiratory failure ([facility]) occured at time of GI bleed Stroke ([facility]) 06/2016 rx with TPA Past Surgical History: Procedure Laterality Date CARDIAC CATHETERIZATION COLONOSCOPY diverticulosis / lg ingunial hernia ESOPHAGOGASTRODUODENOSCOPY severe errosis gastritis and duodenitis TONSILLECTOMY No Known Allergies Current Facility-Administered Medications: acetaminophen (TYLENOL EXTRA STRENGTH) tablet 500 mg, 500 mg, oral, Q6H PRN, Ab Ramadan, POLICY SERVICE COORDINATOR-VETERINARIAN POULTRY, 500 mg at 01/13/25 0628 alum-mag hydroxide-simeth (MAALOX) 200-200-20 mg/5 mL suspension 30 mL, 30 mL, oral, PCHSP, Ramadan POLICY SERVICE COORDINATOR-VETERINARIAN POULTRY cefTRIAXone (ROCEPHIN) IVPB 2000 mg/50 mL in iso-osmotic dextrose (40 mg/mL premix), 2,000 mg, intravenous, Q24H, Ab RamISRAEL espinosaN-DYLAN dextrose (GLUTOSE) 40 % gel 15 g, 15 g, oral, PRN, Ramadan, POLICY SERVICE COORDINATOR-VETERINARIAN POULTRY dextrose 5 % (D5W) infusion, 100 mL/hr, intravenous, Continuous PRN, Ramfrancisca POLICY SERVICE COORDINATOR-VETERINARIAN POULTRY dextrose 50 % in water (D50W) 50% solution 25 mL, 25 mL, intravenous, PRN, Ramn, POLICY SERVICE COORDINATOR-DYLAN dilTIAZem (CARDIZEM) infusion 125 mg/125 mL in sodium chloride 0.7% (1 mg/mL premix), 5-15 mg/hr, intravenous, Continuous, Ralph Tamayo MD, Last Rate: 15 mL/hr at 01/13/25 0552, 15 mg/hr at 01/13/25 0552 glucagon HCL injection 1 mg, 1 mg, intramuscular, PRN, Ramdelmy, POLICY SERVICE COORDINATOR-VETERINARIAN POULTRY HYDROcodone-acetaminophen (NORCO) 5-325 mg per tablet 1 [...] water (40 mg/mL premix), 2,000 mg, intravenous,PRN, Abed Ramadan, POLICY SERVICE COORDINATOR-VETERINARIAN POULTRY magnesium sulfate IVPB 4000 mg/100 mL in iso-osmotic water (40 mg/mL premix), 4,000 mg, intravenous, PRN, Abed Ramadan, POLICY SERVICE COORDINATOR-VETERINARIAN POULTRY, Stopped at 01/13/25 1038 metoprolol tartrate (LOPRESSOR) tablet 50 mg, 50 mg, oral, BID, Taeler Carr, POLICY SERVICE COORDINATOR-VETERINARIAN POULTRY, 50 mg at 01/13/25 0928 ondansetron (PF) (ZOFRAN) injection 4 mg, 4 mg, intravenous, Q4H PRN, Abed Ramadan, POLICY SERVICE COORDINATOR-VETERINARIAN POULTRY potassium chloride (KLOR-CON M 20) CR tablet 30-40 mEq, 30-40 mEq, oral, PRN, 30 mEq at 01/13/25 0628 OR potassium chloride (KAYCIEL) 20 mEq/15 mL solution 30-40 mEq, 30-40 mEq, oral, PRN OR potassium chloride IVPB 10 mEq/100 mL in water (0.1 mEq/mL premix), 10 mEq, intravenous, PRN, Abed Ramadan, POLICY SERVICE COORDINATOR-VETERINARIAN POULTRY sennosides-docusate sodium (SENOKOT-S) 8.6-50 mg 1 tablet, 1 tablet, oral, Q12H PRN, Abed Ramadan, POLICY SERVICE COORDINATOR-VETERINARIAN POULTRY sodium chloride 0.9 % flush 3 mL, 3 mL, intravenous, PRN, Aleks He MD sodium chloride 0.9 % infusion, 75 mL/hr, intravenous, Continuous, Abed Ramadan, POLICY SERVICE COORDINATOR-VETERINARIAN POULTRY, Last Rate: 75 mL/hr at 01/13/25 0552, [...] patient/family/caregiver Referring and communicating with other health child care associate teacher Delmar Ramirez MD [facility] [place] documented in this encounter Nursing Notes * Tricia Sierra RN - 01/14/2025 2:08 PM EDT Ptn transport arrived to picking tech patient and transport to [facility]. Patients vital signs remain stable. Report given patient left floor at 1408. * Tricia Sierra RN - 01/14/2025 12:45 PM EDT Patients sister Glory arrived to unit to check on patient. Dr. Ramirez present to speak with sister and explain events during surgery. Nurse notified sister of transfer to [facility] ICU within 90 minutes. * Tricia Sierra RN - 01/14/2025 12:21 PM EDT Received return phone call from beau the nurse at [facility] taking report on patient. Gave [...] RN - 01/14/2025 12:00 PM EDT Contacted [facility] icu to notify of transport time and give report. Left transport time and name andphone number for receiving nurse to call back for report. * Cynthia Wheeler RN - 01/14/2025 11:40 AM EDT [facility] called with a room number. Patient is to be transferred to [place] to room 2012. Number to call report is [phone]. Primary RN arranged transportation with PTN was [...] from the original note were not included. [facility] - EM[facility]GENCY Pt Name: Paul Guerrero Birthdate: [...] does have a-fib. History provided by: Patient tool or die drawing checker used: No Past Medical History: Past Medical History: Diagnosis Date ??? Acute renal failure (ARF) occured at time of GI bleed ??? Atrial fibrillation ([facility]) ??? Bluish skin discoloration ??? CHF (congestive heart failure) ([facility]) 2012 initial EF 15 % // last ECHO 55 % ??? Cholecystitis ??? Contracture of finger joint Patient had an accident on a ladder causing deformity and this eventually developed into a contracture. Patient elected not to have surgery. ??? CVA (cerebral vascular accident) ([facility]) ??? Diverticulosis of colon ??? Dyspnea ??? [...] GI bleed ??? Pneumonia ??? Respiratory failure ([facility]) occured at time of GI bleed ??? Stroke ([facility]) 06/2016 rx with TPA Past Surgical History: [...] motor subscore is 6. Procedure: Procedures Re-evaluation: Verena Antoine (scribe), documented on behalf and in the [...] 01/12/252004 Atrial fibrillation with rapid ventricular response ([facility]) Non-traumatic rhabdomyolysis Contusion of face, initial encounter Leukocytosis, unspecified type . ED Disposition None . Please note that portions of this note were completed with a voice recognition program. Efforts were made to edit the dictations but occasionally words are mis-transcribed. Verena Hart 01/12/25 1704 Verena Hart 01/12/25 1921 Verena Hart 01/12/25 1937 Aleks He MD 01/12/25 8640 documented in this encounter Miscellaneous Notes * [...] Description: INTERVENTIONS: 1. Encourage patient or legal retail account representative to report early pain and ask [...] per policy 9. Teach patient or legal retail account representative interventions for comforting Outcome: Progressing Note: [...] at the bedside 7. Instruct patient/ patient retail account representative about use of safety devices 8. Include patient/ patient retail account representative in decisions related to safety Outcome: [...] freed from its peritoneal attachments along the pelvisand the white line of [place]. Points of [...] lower quadrant without tension. A disc of skinwas removed from the colostomy site in the left lower quadrant. The incision was deepened through all the layers of the abdominal wall and dilated to admit 2 fingers. The colon was passed out throughthe ostomy site without torsion or tension. The [...] running suture of 2-0 PDS. A 15 Croatian round RAAD drain was placed in the [...] care, the patient will be transferred to [facility]. Of note, during the case, patient was noted to have minimal urine output. Intraoperatively, the bladder was checked. The bladder was mildly distended with urine. The Marinelli catheter could not be felt within the bladder. After the case was done, Marinelli catheter was removed. Blood was noted coming out of the urethra and in the catheter. I [...] is seen by Urology. Delmar Ramirez MD [facility] [place] The 1st catering administrative assistant was essential to the completion of this [...] per portions of the case the 1st catering administrative assistant provided assistance in the transition to the postsurgical care site. * Discharge Planning Note - Shima Diego RN - 01/14/2025 8:40 AM EDT DISCHARGE PLANNING NOTE Paul Guerrero Cardiology follow up scheduled. Per general surgery note of yesterday, left inguinal hernia repair this stay. Patient Discharge Plan: Home pending clinical course and self care. Follow up as below: Refuses PCP appointments. [facility] ([place] office) in 2-3 weeks. Scheduled for February 10, [...] Description: INTERVENTIONS: 1. Encourage patient or legal retail account representative to report early pain and ask [...] per policy 9. Teach patient or legal retail account representative interventions for comforting 01/14/2025214 by CHRISTOS [...] at the bedside 7. Instruct patient/ patient retail account representative about use of safety devices 8. Include patient/ patient retail account representative in decisions related to safety 01/14/2025214 by CHRISTOS Hubbard Outcome: Progressing Note: Evaluation of progress towards goal: Remains free from injury. Safety precautions maintained. 01/14/2025209 by CHRISTOS Hubbard Outcome: Progressing Note: Evaluation of progress towards goal: Remains free from injury. Safety precautions maintained. Problem: Knowledge Deficit Goal: Patient/patient retail account representative demonstrates understanding of disease process, treatment [...] Description: INTERVENTIONS: 1. Encourage patient or legal retail account representative to report early pain and ask [...] per policy 9. Teach patient or legal retail account representative interventions for comforting Outcome: Progressing Note: [...] at the bedside 7. Instruct patient/ patient retail account representative about use of safety devices 8. Include patient/ patient retail account representative in decisions related to safety Outcome: Progressing Note: Evaluation of progress towards goal: Remains free from injury. Safety precautions maintained. Problem: Knowledge Deficit Goal: Patient/patient retail account representative demonstrates understanding of disease process, treatment [...] Description: INTERVENTIONS: 1. Encourage patient or legal retail account representative to report early pain and ask [...] per policy 9. Teach patient or legal retail account representative interventions for comforting Outcome: Progressing Note: [...] at the bedside 7. Instruct patient/ patient retail account representative about use of safety devices 8. Include patient/ patient retail account representative in decisions related to safety Outcome: Progressing Note: Evaluation of progress towards goal: Pt remains free from falls or accidental injury during stay. Fall prevention measures in place. Hourly rounding per RN and NA maintained. * Discharge Planning Note - Kumar Almazan - 01/13/2025 3:54 PM EDT DISCHARGE PLANNING NOTE [facility] [address], [place] [address] P# Monday February 10, 2025 @ 9:45am * Discharge Planning Note - Shima Diego RN - 01/13/2025 11:47 AM EDT Images from the original note were not included. Discharge Planning Assessment Paul Guerrero Admit Status: Inpatient Meet: Yes Readmission Risk: 16%. Date of Admission: 01/12/2025 GMLOS: 2.1 days Target Discharge Date: 01/14/2025 Discharge Planning Assessment completed at bedside. 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 [facility] ([facility]) in 2-3 weeks. Tasked to transition center. [...] Description: INTERVENTIONS: 1. Encourage patient or legal retail account representative to report early pain and ask [...] per policy 9. Teach patient or legal retail account representative interventions for comforting Outcome: Progressing Note: [...] at the bedside 7. Instruct patient/ patient retail account representative about use of safety devices 8. Include patient/ patient retail account representative in decisions related to safety Outcome: [...] hygiene technique. 7. Identify and instruct patient/patient retail account representative in use of appropriate isolation precautionsfor identified infection/symptoms. 8. Provide and discuss with patient/patient retail account representative on educational MDRO sheet. 9. Encourage and monitor nutritional status daily and consult forms analyst if indicated. 10. Implement neutropenic guidelines as needed. Outcome: Progressing Note: Evaluation of progress towards goal: Isolation precautions followed per protocol. Equipment cleaned between patients. Handwashing protocol followed. Problem: Knowledge Deficit Goal: Patient/patient retail account representative demonstrates understanding of disease process, treatment [...] develop effective communication strategies 4. Include patient/patient retail account representative in decisions related to communication Outcome: Progressing Note: Evaluation of progress towards goal: 1. Assessed patient's communication skills and ability to understand information 2. Provided alternate method of communication if needed i.e. ipad, sign board, pen/paper 3. Collaborated with Speech Therapy to develop effective communication strategies 4. Included patient/patient retail account representative in decisions related to communication Problem: [...] Collaborate with ancillary departments 14. Include patient/patient retail account representative in decisions related to anxiety Outcome: [...] providing care 6. Collaborate with pastoral/spiritual care, manager social services, mental health counselor as needed. 7. Instruct patient on diversional activities such as physical activity, distraction, and deep breathing exercises to assist with coping 8. Involve patient's retail account representative in care Outcome: Progressing Note: Evaluation [...] providing care 6. Collaborated with pastoral/spiritual care, manager social services, mental health counselor as needed. 7. Instructed patient on diversional activities such as physical activity, distraction, and deep breathing exercisesto assist with coping 8. Involved patient's retail account representative in care Problem: Potential for Compromised [...] supplement as ordered 13. Collaborate with clinical forms analyst 14. Include patient/ patient's retail account representative in decisions related to nutrition Outcome: [...] supplement as ordered 13. Collaborated with clinical forms analyst 14. Included patient/ patient's retail account representative in decisions related to nutrition Problem: [...] Score of =/> 25 or indicated by [facility] Assessment Goal: Patient should be free from fall Description: Interventions: 1. [place] to environment 2. Hourly rounds addressing the [...] non-skid footwear 11. Teach patient and patient retail account representative to maintain environment for safety and [...] (cane, walker) within reach 19. Request patient retail account representative bring adaptive equipment/mobility aids from home or obtain and provide as needed 20. Consult pharmacy regarding effects of med's affecting mobility, cognition, and alternatives 21. Obtain physician order for PT if risk factors associated with mobility are present 22. Obtain physician order for OT as appropriate 23. Utilize diversional activities 24. Educate patient and patient retail account representative how to maintain a safe environment during visitationtimes (notify nurse prior to leaving bedside) 25. Consider appropriateness of medical or non-manager of medical 26. Set up voiding schedule as appropriate [...] Office Visit [facility] [address] [place] [address] Kerrie Seals, POLICY SERVICE COORDINATOR-VETERINARIAN P[employer]LTRY [address] [place] [address] 03/10/2025 2:30 PM EDT Office Visit [facility] [address] [place] [address] Dar Gaines MD [address] [place] [address] Pending Results Name Type Priority Associated Diagnoses [...] CULTURE Routine 01/14/2025 10: 12 AM EDT [place] COLOSTOMY 01/14/2025 9:03 AM EDT incarcerated left [...] GROWTH 5 DAYS 01/19/2025 7:01 PM EDT [facility] Blood Venous blood / Unknown Venipuncture / Unknown 01/14/2025 1:28 PM EDT 01/14/2025 1:57 PM EDT us Ralph Tamayo MD MICROBIOLOGY - GENERAL ORDERA BLES Final Result [facility] [address] [place] [address], [place] [phone] * (ABNORMAL) Blood Gas, Arterial (01/14/2025 1:20 PM EDT) Sample type ARTERIAL 01/14/2025 1:23 PM EDT [facility] pH, Arterial 7.329(L) 7.350 - 7.450 01/14/2025 1:23 PM EDT [facility] pCO2, Arterial 46.9(H) 35.0 - 45.0 mmHg 01/14/2025 1:23 PM EDT [facility] PO2, Arterial 99 80 - 100 mmHg 01/14/2025 1:23 PM EDT [facility] Base, Deficit -1.0(L) 0.0 - 2.0 mmol/L 01/14/2025 1:23 PM EDT [facility] HCO3, Arterial 24.7 22.0 - 26.0 mmol/L 01/14/2025 1:23 PM EDT [facility] %O2 Saturation, Arterial 97.0 >90.0 % 01/14/2025 1:23 PM EDT [facility] Temo's test N/A 01/14/2025 1:23 PM EDT [facility] SPO2 97 % 01/14/2025 1:23 PM EDT [facility] Sample site A Line 01/14/2025 1:23 PM EDT [facility] Insp. O2 conc. 40 % 01/14/2025 1:23 PM EDT [facility] Source Of Oxygen Vent 01/14/2025 1:23 PM EDT [facility] arterial (Blood, Arterial) 01/14/2025 1:20 PM EDT 01/14/2025 1:23 PM EDT us Ralph Tamayo MD LAB BLOOD ORDERABLES Final Re sult [facility] [address] [place] [address], [place] * X-ray chest 1 view (01/14/2025 [...] Marry Villareal MD on 01/14/2025 2:20 PM us Viviana Bruno POLICY SERVICE COORDINATOR-VETERINARIAN P[employer]LTRY IMG DIAGNOSTIC IMAGING OR DERABLES Final Result * (ABNORMAL) CBC auto differential (01/14/2025 12:53 PM EDT) WBC 13.3(H) 4 - 11 x10E9/L 01/14/2025 1:46 PM EDT [facility] RBC Count 3.32(L) 4.1 - 5.7 X10E12/L 01/14/2025 1:46 PM EDT [facility] Hemoglobin 10.5(L) 13 - 17 g/dL 01/14/2025 1:46 PM EDT [facility] Hematocrit 31.1(L) 39 - 50 % 01/14/2025 1:46 PM EDT [facility] MCV 94 80 - 100 fL 01/14/2025 1:46 PM EDT [facility] MCH 31.6 27 - 34 pg 01/14/2025 1:46 PM EDT [facility] MCHC 33.7 32 - 36 g/dL 01/14/2025 1:46 PM EDT [facility] RDW 14.0 11.5 - 15 % 01/14/2025 1:46 PM EDT [facility] Platelet Count 194 150 - 450 X10E9/L 01/14/2025 1:46 PM EDT [facility] MPV 10.0 7 - 12 fL 01/14/2025 1:46 PM EDT [facility] Bands % 17 % 01/14/2025 1:46 PM EDT [facility] Comment:This is an appended report. These results have been appended to a previously preliminary verified report. Neutrophils % 77 % 01/14/2025 1:46 PM EDT [facility] Comment:This is an appended report. These results have been appended to a previously preliminary verified report. Lymphocytes % 1 % 01/14/2025 1:46 PM EDT [facility] Comment:This is an appended report. These results have been appended to a previously preliminary verified report. Monocytes % 3 % 01/14/2025 1:46 PM EDT [facility] Comment:This is an appended report. These results have been appended to a previously preliminary verified report. Atypical Lymphs % 2 % 01/14/2025 1:46 PM EDT [facility] Comment:This is an appended report. These results have been appended to a previously preliminary verified report. Neutrophils Absolute (M) 12.5(H) 1.5 - 6.6 10*3/uL 01/14/2025 1:46 PM EDT [facility] Comment:This is an appended report. These results have been appended to a previously preliminary verified report. Lymphocytes Absolute 0.4(L) 1.0 - 3.5 10*3/uL 01/14/2025 1:46 PM EDT [facility] Comment:This is an appended report. These results have been appended to a previously preliminary verified report. Monocytes Absolute 0.4 0.0 - 0.9 10*3/uL 01/14/2025 1:46 PM EDT [facility] Comment:This is an appended report. These results have been appended to a previously preliminary verified report. RBC Morphology Reviewed 01/14/2025 1:46 PM T [facility] Comment:This is an appended report. These results have been appended to a previously preliminary verified report. Differential Type MANUAL DIFFERENTIAL 01/14/2025 1:46 PM EDT [facility] Comment:This is an appended report. These results have been appended to a previously preliminary verified report. Blood Venous blood / Unknown Venipuncture / Unknown 01/14/2025 12:53 PM EDT 01/14/2025 1:03 PM EDT Viviana Carr POLICY SERVICE COORDINATOR-VETERINARIAN POULTRY LAB BLOOD ORDERABLES Misyt l Result Performing Organization Address City/[facility]/ZIP Co de Phone Number [address] [place] [address], * Blood culture #2 (01/14/2025 12:53 PM EDT) CULTURE RESULTS NO GROWTH 5 DAYS 01/19/2025 7:01 PM EDT [facility] Blood Venous blood / Unknown Venipuncture / Unknown 01/14/2025 12:53 PM EDT 01/14/2025 1:03 PM EDT Ralph Tamayo MD MICROBIOLOGY - GENERAL ORDERA BLES Final Result Performing Organization Address City/[facility]/ZIP Co de Phone Number [facility] [address] [place] [address], [place] [phone] * Lactate w/ Reflex (01/14/2025 12:52 PM EDT) LACTATE W/REFLEX 2.0 0.4 - 2.0 mmol/L 01/14/2025 1:21 PM EDT [facility] Blood Venous blood / Unknown Venipuncture / Unknown 01/14/2025 12:52 PM EDT 01/14/2025 1:03 PM EDT Narrative [facility] - 01/14/2025 1:21 PM EDT Result did not trigger repeat Lactate, re-order if needed. Viviana Carr POLICY SERVICE COORDINATOR-VETERINARIAN [employer]OULTRY LAB BLOOD ORDERABLES Misty l Result Performing Organization Address City/[facility]/ZIP Co de Phone Number [address] [facility] [place] [address], [place] * (ABNORMAL) Comprehensive metabolic panel (01/14/2025 12:52 PM EDT) SODIUM 133(L) 134 - 146 mmol/L 01/14/2025 1:23 PM EDT [facility] POTASSIUM 4.6 3.5 - 5.0 mmol/L 01/14/2025 1:23 PM EDT [facility] CHLORIDE 99 98 - 109 mmol/L 01/14/2025 1:23 PM EDT [facility] CARBON DIOXIDE 24 22 - 32 mmol/L 01/14/2025 1:23 PM EDT [facility] ANION GAP 10 5 - 15 mmol/L 01/14/2025 1:23 PM EDT [facility] BLOOD UREA NITROGEN 42(H) 5 - 27 mg/dL 01/14/2025 1:23 PM EDT [facility] CREATININE 1.40(H) 0.70 - 1.20 mg/dL 01/14/2025 1:23 PM EDT [facility] Comment:METHOD TRACEABLE TO IDMS STANDARD GLUCOSE 130(H) 65 - 99 mg/dL 01/14/2025 1:23 PM EDT [facility] CALCIUM 8.3(L) 8.5 - 10.5 mg/dL 01/14/2025 1:23 PM EDT [facility] TOTAL PROTEIN 5.4(L) 6.0 - 8.0 g/dL 01/14/2025 1:23 PM EDT [facility] ALBUMIN 2.9(L) 3.2 - 5.3 g/dL 01/14/2025 1:23 PM EDT [facility] ALKALINE PHOSPHATASE 57 39 - 130 U/L 01/14/2025 1:23 PM EDT [facility] AST 48(H) <=41 U/L 01/14/2025 1:23 PM EDT [facility] ALT 38 <=40 U/L 01/14/2025 1:23 PM EDT [facility] BILIRUBIN,TOTAL 0.9 0.3 - 1.2 mg/dL 01/14/2025 1:23 PM EDT [facility] EGFR Non-Race Dependent 53(L) >=60 ml/min/1.7 3sq.m 01/14/2025 1:23 PM EDT [facility] Comment: eGFR not reported due to non-numeric value for Creatinine. EGFR not calculated due to patient's gender not being defined. Reported eGFR is based on the CKD-EPI 2020 equation that does not use a race coefficient. Blood Venous blood / Unknown Venipuncture / Unknown 01/14/2025 12:52 PM EDT 01/14/2025 1:03 PM EDT us Viviana Carr POLICY SERVICE COORDINATOR-VETERINARIAN POULTRY LAB BLOOD ORDERABLES Misty l Result [facility] [address] [place] [address], * (ABNORMAL) Blood Gas, Arterial (01/14/2025 10:38 AM EDT) Sample type ARTERIAL 01/14/2025 10:44 AM EDT [facility] pH, Arterial 7.227(L) 7.350 - 7.450 01/14/2025 10:44 AM EDT [facility] pCO2, Arterial 58.4(H) 35.0 - 45.0 mmHg 01/14/2025 10:44 AM EDT [facility] PO2, Arterial 469(H) 80 - 100 mmHg 01/14/2025 10:44 AM EDT [facility] Base, Deficit -4.0(L) 0.0 - 2.0 mmol/L 01/14/2025 10:44 AM EDT [facility] HCO3, Arterial 24.3 22.0 - 26.0 mmol/L 01/14/2025 10:44 AM EDT [facility] %O2 Saturation, Arterial 100.0 >90.0 % 01/14/2025 10:44 AM EDT [facility] Temo's test N/A 01/14/2025 10:44 AM EDT [facility] SPO2 469 % 01/14/2025 10:44 AM EDT [facility] Sample site N/A 01/14/2025 10:44 AM EDT [facility] Source Of Oxygen Vent 01/14/2025 10:44 AM EDT [facility] arterial (Blood, Arterial) 01/14/2025 10:38 AM EDT 01/14/2025 10:44 AM EDT us Ralph Tamayo MD LAB BLOOD ORDERABLES Final Re sult [facility] [address] [place] [address], [place] * (ABNORMAL) Aspirate culture includes gram stain (01/14/2025 10:12 AM EDT) CULTURE RESULTS Rare Escherichia coli(A) 01/17/2025 11:34 AM EDT [facility] CULTURE RESULTS Rare Streptococcus gordonii(A) 01/17/2025 11:34 AM EDT [facility] CULTURE RESULTS Rare Edith utilis(A) 01/17/2025 11:34 AM EDT [facility] GRAM STAIN >25 White Blood Cells/LPF(A) 01/17/2025 11:34 AM EDT [facility] GRAM STAIN 0 Squamous Epithelial Cells/LPF(A) 01/17/2025 11:34 AM EDT [facility] GRAM STAIN Many Gram negative bacilli(A) 01/17/2025 11:34 AM EDT [facility] GRAM STAIN Many Gram positive coccobacilli(A) 01/17/2025 11:34 AM EDT [facility] Comment:Smear Reviewed, Resu lts [...] MICROBIOLOGY - GENERAL ORD ERABLES Final Result [facility] [address] [place] [address], [place] [phone] * (ABNORMAL) Anaerobic culture (01/14/2025 10:12 AM EDT) CULTURE RESULTS Many Bacteroides fragilis(A) 01/19/2025 10:01 AM EDT [facility] CULTURE RESULTS Many Bacteroides ovatus/xylaniso lvens(A) 01/19/2025 10:01 AM EDT [facility] Aspirate (Abdomen) 01/14/2025 10:12 AM EDT 01/14/2025 1:05 PM EDT Comment:Pre-op diagnosis: incarcerated left inguinal hernia eDlmar Ramirez MD MICROBIOLOGY - GENERAL ORD ERABLES Final Result [facility] [address] [place] [address], [place] [phone] * Type and screen (Pre-op) (01/14/2025 8:54 AM EDT) ABO A 01/14/2025 12:25 PM EDT [facility] RH Positive 01/14/2025 12:25 PM EDT [facility] Antibody Screen Negative 01/14/2025 12:25 PM EDT [facility] Blood Venous blood / Unknown Venipuncture / Unknown 01/14/2025 8:54 AM EDT 01/14/2025 8:56 AM EDT us Reynaldo Juarez MD BLOOD BANK TEST ORDERABLES Ed ited Result - Final [facility] [address] [place] [address], [facility] [address] [place] [address], * (ABNORMAL) CBC auto differential (01/14/2025 4:25 AM EDT) WBC 32.8(H) 4 - 11 x10E9/L 01/14/2025 10:40 AM EDT [facility] RBC Count 4.23 4.1 - 5.7 X10E12/L 01/14/2025 10:40 AM EDT [facility] Hemoglobin 13.1 13 - 17 g/dL 01/14/2025 10:40 AM EDT [facility] Hematocrit 40.0 39 - 50 % 01/14/2025 10:40 AM EDT [facility] MCV 95 80 - 100 fL 01/14/2025 10:40 AM EDT [facility] MCH 30.9 27 - 34 pg 01/14/2025 10:40 AM EDT [facility] MCHC 32.7 32 - 36 g/dL 01/14/2025 10:40 AM EDT [facility] RDW 13.9 11.5 - 15 % 01/14/2025 10:40 AM EDT [facility] Platelet Count 331 150 - 450 X10E9/L 01/14/2025 10:40 AM EDT [facility] MPV 9.5 7 - 12 fL 01/14/2025 10:40 AM EDT [facility] Bands % 14 % 01/14/2025 10:40 AM [facility] Comment:This is an appended report. These results have been appended to a previously preliminary verified report. Neutrophils % 82 % 01/14/2025 10:40 AM [facility] Comment:This is an appended report. These results have been appended to a previously preliminary verified report. Lymphocytes % 1 % 01/14/2025 10:40 AM [facility] Comment:This is an appended report. These results have been appended to a previously preliminary verified report. Monocytes % 3 % 01/14/2025 10:40 AM [facility] Comment:This is an appended report. These results have been appended to a previously preliminary verified report. Neutrophils Absolute (M) 31.5(H) 1.5 - 6.6 10*3/uL 01/14/2025 10:40 AM [facility] Comment:This is an appended report. These results have been appended to a previously preliminary verified report. Lymphocytes Absolute 0.3(L) 1.0 - 3.5 10*3/uL 01/14/2025 10:40 AM [facility] Comment:This is an appended report. These results have been appended to a previously preliminary verified report. Monocytes Absolute 1.0(H) 0.0 - 0.9 10*3/uL 01/14/2025 10:40 AM [facility] Comment:This is an appended report. These results have been appended to a previously preliminary verified report. RBC Morphology Reviewed 01/14/2025 10:40 AM [facility] Comment:This is an appended report. These results have been appended to a previously preliminary verified report. Differential Type MANUAL DIFFERENTIAL 01/14/2025 10:40 AM [facility] Comment:This is an appended report. These results have been appended to a previously preliminary verified report. Blood Venous blood / Unknown Venipuncture / Unknown 01/14/2025 4:25 AM EDT 01/14/2025 4:30 AM EDT us Abed Ramadan POLICY SERVICE COORDINATOR-[employer] LAB BLOOD ORDERABLES Final Result Performing Organization Address City/[facility]/ZIP Co de Phone Number [address] [place] [address], [place] * Magnesium (01/14/2025 4:25 AM EDT) MAGNESIUM 2.6 1.8 - 2.6 mg/dL 01/14/2025 4:50 AM EDT [facility] Blood Venous blood / Unknown Venipuncture / Unknown 01/14/2025 4:25 AM EDT 01/14/2025 4:30 AM EDT us Abed Ramratcliffn POLICY SERVICE COORDINATOR-[employer] LAB BLOOD ORDERABLES Final Result Performing Organization Address [facility] Co de Phone Number [address] [place] [address], [place] * (ABNORMAL) Comprehensive metabolic panel (01/14/2025 4:25 AM EDT) SODIUM 132(L) 134 - 146 mmol/L 01/14/2025 4:50 AM EDT [facility] POTASSIUM 4.5 3.5 - 5.0 mmol/L 01/14/2025 4:50 AM EDT [facility] CHLORIDE 96(L) 98 - 109 mmol/L 01/14/2025 4:50 AM EDT [facility] CARBON DIOXIDE 23 22 - 32 mmol/L 01/14/2025 4:50 AM EDT [facility] ANION GAP 13 5 - 15 mmol/L 01/14/2025 4:50 AM EDT [facility] BLOOD UREA NITROGEN 43(H) 5 - 27 mg/dL 01/14/2025 4:50 AM EDT [facility] CREATININE 1.80(H) 0.70 - 1.20 mg/dL 01/14/2025 4:50 AM EDT [facility] Comment:METHOD TRACEABLE TO IDMS STANDARD GLUCOSE 115(H) 65 - 99 mg/dL 01/14/2025 4:50 AM EDT [facility] CALCIUM 8.8 8.5 - 10.5 mg/dL 01/14/2025 4:50 AM EDT [facility] TOTAL PROTEIN 6.9 6.0 - 8.0 g/dL 01/14/2025 4:50 AM EDT [facility] ALBUMIN 2.9(L) 3.2 - 5.3 g/dL 01/14/2025 4:50 AM EDT [facility] ALKALINE PHOSPHATASE 84 39 - 130 U/L 01/14/2025 4:50 AM EDT [facility] AST 88(H) <=41 U/L 01/14/2025 4:50 AM EDT [facility] ALT 59(H) <=40 U/L 01/14/2025 4:50 AM EDT [facility] BILIRUBIN,TOTAL 0.7 0.3 - 1.2 mg/dL 01/14/2025 4:50 AM EDT [facility] EGFR Non-Race Dependent 39(L) >=60 ml/min/1.7 3sq.m 01/14/2025 4:50 AM EDT [facility] Comment: eGFR not reported due to non-numeric value for Creatinine. EGFR not calculated due to patient's gender not being defined. Reported eGFR is based on the CKD-EPI 2020 equation that does not use a race coefficient. Blood Venous blood / Unknown Venipuncture / Unknown 01/14/2025 4:25 AM EDT 01/14/2025 4:30 AM EDT us Abed Ramadan POLICY SERVICE COORDINATOR-[employer] LAB BLOOD ORDERABLES Final Result [facility] [address] [place] [address], [place] * Lactate (01/13/2025 5:02 PM EDT) LACTATE 1.7 0.4 - 2.0 mmol/L 01/13/2025 5:23 PM EDT [facility] Blood Venous blood / Unknown Venipuncture / Unknown 01/13/2025 5:02 PM EDT 01/13/2025 5:04 PM EDT us Viviana Carr POLICY SERVICE COORDINATOR-[employer] LAB BLOOD ORDERABLES Misty l Result [facility] [address] [place] [address], [place] * Echo complete W/O contrast (01/13/2025 [...] Velocity Ratio 0.79 XCELERA Left Ventricle Mass 200.32980 [id number] 8 g XCELERA Interventricular Septum Diastolic Thickness [...] ventricular wall motion is normal. Viviana Carr POLICY SERVICE COORDINATOR-[employer] CV ECHO ORDERABLES Final Result * Ultrasound [...] kidneys and urinary bladder. Finalized by Russell Brnatley MD on 01/13/2025 3:08 PM Procedure Note [...] Russell Brantley MD on 01/13/2025 3:08 PM us Viviana Carr APRN-DYLAN IMG US ORDERABLES Final R esult * (ABNORMAL) Lactate w/ Reflex (01/13/2025 1:32 PM EDT) LACTATE W/REFLEX 2.8(H) 0.4 - 2.0 mmol/L 01/13/2025 1:58 PM EDT [facility] Blood Venous blood / Unknown Venipuncture / Unknown 01/13/2025 1:32 PM EDT 01/13/2025 1:35 PM EDT us Viviana Carr POLICY SERVICE COORDINATOR[employer] LAB BLOOD ORDERABLES Misty l Result [facility] [address] [place] [address], [place] * (ABNORMAL) Magnesium (01/13/2025 1:32 PM EDT) MAGNESIUM 3.0(H) 1.8 - 2.6 mg/dL 01/13/2025 1:56 PM EDT [facility] Blood Venous blood / Unknown Venipuncture / Unknown 01/13/2025 1:32 PM EDT 01/13/2025 1:35 PM EDT us Ralph Tamayo MD LAB BLOOD ORDERABLES Final Re sult Performing Organization Address [facility]/ZIP Co de Phone Number [address] [place] [address], [place] * Potassium (01/13/2025 1:32 PM EDT) POTASSIUM 3.9 3.5 - 5.0 mmol/L 01/13/2025 1:54 PM EDT [facility] Blood Venous blood / Unknown Venipuncture / Unknown 01/13/2025 1:32 PM EDT 01/13/2025 1:35 PM EDT us Ralph Tamayo MD LAB BLOOD ORDERABLES Final Re sult Performing Organization Address City/[facility]/ZIP Co de Phone Number [address] [place] [address], [place] * SST TOP (01/13/2025 1:31 PM EDT) Extra Tube Auto Resulted 01/13/2025 3:02 PM EDT [facility] Blood Venous blood / Unknown 01/13/2025 1:31 PM EDT 01/13/2025 1:35 PM EDT us Ralph Tamayo MD LAB BLOOD ORDERABLES Final Re sult Performing Organization Address City/[facility]/ZIP Co de Phone Number [facility] [address] [place] [address], [place] * X-ray chest 1 view (01/13/2025 [...] Luis Asif MD on 01/13/2025 11:48 AM us Viviana Carr APRN-DYLAN IMG DIAGNOSTIC IMAGING OR DERABLES Final Result [...] on 01/13/2025 12:45 PM us Viviana Carr POLICY SERVICE COORDINATOR-[employer] IMG US ORDERABLES Final R esult * (ABNORMAL) Urinalysis (01/13/2025 6:55 AM EDT) COLOR Yellow Yellow 01/13/2025 11:29 AM EDT [facility] TURBIDITY Cloudy(A) Clear 01/13/2025 11:29 AM EDT [facility] SPECIFIC GRAVITY 1.025 1.003 - 1.035 01/13/2025 11:29 AM EDT [facility] NITRITE Negative Negative 01/13/2025 11:29 AM EDT [facility] PH,URINE 6.0 5.0 - 8.5 01/13/2025 11:29 AM EDT [facility] LEUKOCYTE ESTERASE Negative Negative 01/13/2025 11:29 AM EDT [facility] PROTEIN 30 mg/dL(A) Negative 01/13/2025 11:29 AM EDT [facility] KETONES (URINE) Negative Negative 11:29 AM EDT [facility] UROBILINOGEN 0.2 eu/dL 0.2 eu/dL, 1.0 eu/dL 01/13/2025 11:29 AM EDT [facility] BILIRUBIN (URINE) Negative Negative 01/13/2025 11:29 AM EDT [facility] BLOOD/HGB Large(A) Negative 01/13/2025 11:29 AM EDT [facility] AMORPHOUS SEDIMENT Present(A) None 01/13/2025 11:29 AM EDT [facility] COARSE GRANULAR CAST 2(H) <=0 01/13/2025 11:29 AM EDT [facility] MUCOUS Present(A) None 01/13/2025 11:29 AM EDT [facility] R.B.CELLS 3 0 - 5 01/13/2025 11:29 AM EDT [facility] W.B.CELLS 4 0 - 5 01/13/2025 11:29 AM EDT [facility] GLUCOSE (URINE) Negative Negative, 250 mg/dL 01/13/2025 11:29 AM EDT [facility] Urine Urine specimen collection, clean catch / Unknown 01/13/2025 6:55 AM EDT 01/13/2025 7:01 AM EDT us Viviana Carr APRN-[employer] URINE ORDERABLES Final Re sult Performing Organization Address City/[facility] Co de Phone Number [address] [place] [address], [place] * Extra Urine Talmage (01/13/2025 6:55 AM EDT) Extra Tube Auto Resulted 01/13/2025 8:01 AM EDT [facility] Urine Urine specimen collection, clean catch / Unknown 01/13/2025 6:55 AM EDT 01/13/2025 7:01 AM EDT us Aleks He MD URINE ORDERABLES Final Result Performing Organization Address City/[facility] Co de Phone Number [address] [place] [address], [place] * Extra Urine Culture (01/13/2025 6:55 AM EDT) Extra Tube Auto Resulted 01/13/2025 8:01 AM EDT [facility] Urine Urine specimen collection, clean catch / Unknown 01/13/2025 6:55 AM EDT 01/13/2025 7:02 AM EDT us Aleks He MD URINE ORDERABLES Final Result Performing Organization Address City/[facility] Co de Phone Number [address] [place] [address], [place] * Extra Urine (01/13/2025 6:55 AM EDT) Extra Tube Auto Resulted 01/13/2025 8:01 AM EDT [facility] Urine Urine specimen collection, clean catch / Unknown 01/13/2025 6:55 AM EDT 01/13/2025 7:02 AM EDT us Aleks He MD URINE ORDERABLES Final Result Performing Organization Address [facility]/ZIP Co de Phone Number [address] [place] [address], [place] * Thyroid profile includes TSH FT4 (01/13/2025 4:37 AM EDT) FREE T4 1.51 0.61 - 1.60 ng/dL 01/13/2025 9:45 AM EDT [facility] TSH 0.59 0.49 - 4.67 uIU/mL 01/13/2025 9:45 AM EDT [facility] Blood Venous blood / Unknown Venipuncture / Unknown 01/13/2025 4:37 AM EDT 01/13/2025 4:52 AM EDT us Viviana Carr POLICY SERVICE COORDINATOR-[employer] LAB BLOOD ORDERABLES Misty l Result Performing Organization Address [facility]/ZIP Co de Phone Number [address] [place] [address], [place] * (ABNORMAL) CBC auto differential (01/13/2025 4:37 AM EDT) WBC 17.3(H) 4 - 11 x10E9/L 01/13/2025 5:18 AM EDT [facility] RBC Count 3.99(L) 4.1 - 5.7 X10E12/L 01/13/2025 5:18 AM EDT [facility] Hemoglobin 12.5(L) 13 - 17 g/dL 01/13/2025 5:18 AM EDT [facility] Hematocrit 37.0(L) 39 - 50 % 01/13/2025 5:18 AM EDT [facility] MCV 93 80 - 100 fL 01/13/2025 5:18 AM EDT [facility] MCH 31.4 27 - 34 pg 01/13/2025 5:18 AM EDT [facility] MCHC 33.9 32 - 36 g/dL 01/13/2025 5:18 AM EDT [facility] RDW 13.6 11.5 - 15 % 01/13/2025 5:18 AM EDT [facility] Platelet Count 211 150 - 450 X10E9/L 01/13/2025 5:18 AM EDT [facility] MPV 10.3 7 - 12 fL 01/13/2025 5:18 AM EDT [facility] Neutrophils % 91.3 % 01/13/2025 5:18 AM EDT [facility] Lymphocytes % 1.9 % 01/13/2025 5:18 AM EDT [facility] Monocytes % 6.5 % 01/13/2025 5:18 AM EDT [facility] Eosinophils % 0.0 % 01/13/2025 5:18 AM EDT [facility] Basophils % 0.3 % 01/13/2025 5:18 AM EDT [facility] Neutrophils Absolute (A) 15.8(H) 1.5 - 6.6 10*3/uL 01/13/2025 5:18 AM EDT [facility] Lymphocytes Absolute 0.3(L) 1.0 - 3.5 10*3/uL 01/13/2025 5:18 AM EDT [facility] Monocytes Absolute 1.1(H) 0.0 - 0.9 10*3/uL 01/13/2025 5:18 AM EDT [facility] Eosinophils Absolute 0.0 0.0 - 0.4 10*3/uL 01/13/2025 5:18 AM EDT [facility] Basophils Absolute 0.1 0.0 - 0.2 10*3/uL 01/13/2025 5:18 AM EDT [facility] Differential Type AUTOMATED DIFFERENTIAL 01/13/2025 5:18 AM EDT [facility] Blood Venous blood / Unknown Venipuncture / Unknown 01/13/2025 4:37 AM EDT 01/13/2025 4:52 AM EDT Abed Ramadan POLICY SERVICE COORDINATOR-[employer] LAB BLOOD ORDERABLES Final Result Performing Organization Address City/[facility]/ZIP Co de Phone Number [address] [place] [address], [place] * (ABNORMAL) Magnesium (01/13/2025 4:37 AM EDT) MAGNESIUM 1.6(L) 1.8 - 2.6 mg/dL 01/13/2025 5:23 AM EDT [facility] Blood Venous blood / Unknown Venipuncture / Unknown 01/13/2025 4:37 AM EDT 01/13/2025 4:52 AM EDT us Abed [facility] POLICY SERVICE COORDINATOR-[employer] LAB BLOOD ORDERABLES Final Result Performing Organization Address City/[facility] Co de Phone Number [address] [place] [address], [place] * (ABNORMAL) Comprehensive metabolic panel (01/13/2025 4:37 AM EDT) SODIUM 135 134 - 146 mmol/L 01/13/2025 5:23 AM EDT [facility] POTASSIUM 3.6 3.5 - 5.0 mmol/L 01/13/2025 5:23 AM EDT [facility] CHLORIDE 99 98 - 109 mmol/L 01/13/2025 5:23 AM EDT [facility] CARBON DIOXIDE 24 22 - 32 mmol/L 01/13/2025 5:23 AM EDT [facility] ANION GAP 12 5 - 15 mmol/L 01/13/2025 5:23 AM EDT [facility] BLOOD UREA NITROGEN 40(H) 5 - 27 mg/dL 01/13/2025 5:23 AM EDT [facility] CREATININE 1.77(H) 0.70 - 1.20 mg/dL 01/13/2025 5:23 AM EDT [facility] Comment:METHOD TRACEABLE TO [facility] STANDARD GLUCOSE 129(H) 65 - 99 mg/dL 01/13/2025 5:23 AM EDT [facility] CALCIUM 8.1(L) 8.5 - 10.5 mg/dL 01/13/2025 5:23 AM EDT [facility] TOTAL PROTEIN 6.2 6.0 - 8.0 g/dL 01/13/2025 5:23 AM EDT [facility] ALBUMIN 2.8(L) 3.2 - 5.3 g/dL 01/13/2025 5:23 AM EDT [facility] ALKALINE PHOSPHATASE 66 39 - 130 U/L 01/13/2025 5:23 AM EDT [facility] AST 110(H) <=41 U/L 01/13/2025 5:23 AM EDT [facility] ALT 46(H) <=40 U/L 01/13/2025 5:23 AM EDT [facility] BILIRUBIN,TOTAL 1.5(H) 0.3 - 1.2 mg/dL 01/13/2025 5:23 AM EDT [facility] EGFR Non-Race Dependent 40(L) >=60 ml/min/1.7 3sq.m 01/13/2025 5:23 AM EDT [facility] Comment: eGFR not reported due to non-numeric value for Creatinine. Reported eGFR is based on the CKD-EPI 2020 equation that does not use a race coefficient. Blood Venous blood / Unknown Venipuncture / Unknown 01/13/2025 4:37 AM EDT 01/13/2025 4:52 AM EDT us Abed Ramadan POLICY SERVICE COORDINATOR-[employer] LAB BLOOD ORDERABLES Final Result [facility] [address] [place] [address], [place] * (ABNORMAL) Myoglobin, serum (01/13/2025 4:37 AM EDT) SERUM MYOGLOBIN 2,139.7(H) 17.4 - 105.7 ng/mL 01/13/2025 5:35 AM EDT [facility] Blood Venous blood / Unknown Venipuncture / Unknown 01/13/2025 4:37 AM EDT 01/13/2025 4:52 AM EDT [facility] POLICY SERVICE COORDINATOR-[employer] LAB BLOOD ORDERABLES Final Result [address] [place] [address], [place] * (ABNORMAL) CK Total (01/13/2025 4:37 AM EDT) CPK 2,276(H) 24 - 195 U/L 01/13/2025 8:47 AM EDT [facility] Blood Venous blood / Unknown Venipuncture / Unknown 01/13/2025 4:37 AM EDT 01/13/2025 4:52 AM EDT [facility]ORD[facility] LAB BLOOD ORDERABLES Final Result [address] [place] [address], [place] * Lactate (01/12/2025 8:50 PM EDT) LACTATE 1.7 0.4 - 2.0 mmol/L 01/12/2025 9:11 PM EDT [facility] Blood Venous blood / Unknown Venipuncture / Unknown 01/12/2025 8:50 PM EDT 01/12/2025 8:52 PM EDT Aleks He MD LAB BLOOD ORDERABLES Final Resu lt [facility] [address] [place] [address], * X-ray chest 1 view (01/12/2025 7:17 [...] Bryon Boucher MD on 01/12/2025 7:21 PM Procedure Note [...] 41(H) <21 ng/L 01/12/2025 7:11 PM EDT [facility] Blood Venous blood / Unknown Venipuncture / Unknown 01/12/2025 6:29 PM EDT 01/12/2025 6:39 PM EDT Narrative [facility] - 01/12/2025 7:11 PM EDT Elevations of hs-Troponin may be due to causes other than myocardial ischemia. Recommend serial hs-Troponin testing be performed. For the initial evaluation and management of chest pain patients, refer to the algorithms linked below. Emergency Patient: [email or web address] Inpatient: [email or web address] us Aleks He MD LAB BLOOD ORDERABLES Final Resu lt [facility] [address] [place] [address], * Blood culture (01/12/2025 6:29 PM EDT) CULTURE RESULTS NO GROWTH 5 DAYS 01/17/2025 11:01 PM EDT [facility] Blood Venous blood / Unknown Venipuncture / Unknown 01/12/2025 6:29 PM EDT 01/12/2025 6:49 PM EDT us Aleks He MD MICROBIOLOGY - GENERAL ORDERABL ES Final Result Performing Organization Address City/[facility] Co de Phone Number [facility] [address] [place] [address], * CT brain without contrast (01/12/2025 6:04 [...] Pasha Young MD on 01/12/2025 6:08 PM us Aleks He MD IMG CT ORDERABLES Final Result * Blood culture (01/12/2025 5:23 PM EDT) CULTURE RESULTS NO GROWTH 5 DAYS 01/17/2025 11:01 PM EDT [facility] Blood Venous blood / Unknown Venipuncture / Unknown 01/12/2025 5:23 PM EDT 01/12/2025 5:32 PM EDT us Aleks He MD MICROBIOLOGY - GENERAL ORDERABL ES Final Result [facility] [address] [place] [address], [place] [phone] * (ABNORMAL) Lactate w/ Reflex (01/12/2025 5:23 PM EDT) LACTATE W/REFLEX 2.4(H) 0.4 - 2.0 mmol/L 01/12/2025 5:51 PM EDT [facility] Blood Venous blood / Unknown Venipuncture / Unknown 01/12/2025 5:23 PM EDT 01/12/2025 5:32 PM EDT us Aleks He MD LAB BLOOD ORDERABLES Final Resu lt [facility] [address] [place] [address], * SARS/FLU A+B/RSV by NAAT/Molecular (M4RT Collection Tube) (01/12/2025 5:12 PM EDT) FLU A PCR Negative Negative 01/12/2025 6:12 PM EDT [facility] FLU B PCR Negative Negative 01/12/2025 6:12 PM EDT [facility] RSV BY PCR Negative Negative 01/12/2025 6:12 PM EDT [facility] SARS COV 2 BY PCR Not Detected Not Detected 01/12/2025 6:12 PM EDT [facility] Swab Nasopharyngeal structure / Unknown 01/12/2025 5:12 PM EDT 01/12/2025 5:33 PM EDT Narrative [facility] - 01/12/2025 6:12 PM EDT The Xpert [...] operators who are performing tests using either [employer] or [employer] systems and is limited to laboratories that [...] specimen repeat. Fact Sheet for Healthcare Providers: https://www.fda.gov/media/537089/download Fact Sheet for Patients: https://www.fda.gov/media/247562/download us Aleks He MD MICROBIOLOGY - GENERAL ORDERABL ES Final Result [facility] [address] [facility] [place] [address], * (ABNORMAL) Procalcitonin (01/12/2025 5:11 PM EDT) PROCALCITONIN 5.10(H) <0.05 ng/mL 01/12/2025 9:06 PM EDT [facility] Blood Venous blood / Unknown Venipuncture / Unknown 01/12/2025 5:11 PM EDT 01/12/2025 5:32 PM EDT [facility] - 01/12/2025 9:06 PM EDT <0.50 ng/mL - Low risk of severe sepsis and/or septic shock. <2.00 ng/mL - Recommend retesting within 6-24 hours. >2.00 ng/mL - High risk of sepsis and/or septic shock. us Joan Estrada APRN-[employer] LAB BLOOD ORDERABLES Final Result Performing Organization Address City/[facility]/ZIP Co de Phone Number [address] [place] [address], [place] * (ABNORMAL) Troponin I, High Sensitivity 0 Hour (01/12/2025 5:11 PM EDT) TROPONIN I, HIGH SENSITIVITY 39(H) <21 ng/L 01/12/2025 6:04 PM EDT [facility] Blood Venous blood / Unknown Venipuncture / Unknown 01/12/2025 5:11 PM EDT 01/12/2025 5:32 PM EDT us Aleks He MD LAB BLOOD ORDERABLES Final Resu lt Performing Organization Address [facility]/ZIP Co de Phone Number [address] [place] [address], [place] * (ABNORMAL) CK Total (01/12/2025 5:11 PM EDT) CPK 3,798(H) 24 - 195 U/L 01/12/2025 6:05 PM EDT [facility] Blood Venous blood / Unknown Venipuncture / Unknown 01/12/2025 5:11 PM EDT 01/12/2025 5:32 PM EDT us Aleks He MD LAB BLOOD ORDERABLES Final Resu lt Performing Organization Address City/[facility]/ZIP Co de Phone Number [address] [place] [address], [place] * Magnesium (01/12/2025 5:11 PM EDT) MAGNESIUM 1.8 1.8 - 2.6 mg/dL 01/12/2025 6:05 PM EDT [facility] Blood Venous blood / Unknown Venipuncture / Unknown 01/12/2025 5:11 PM EDT 01/12/2025 5:32 PM EDT Aleks He MD LAB BLOOD ORDERABLES Final Resu lt Performing Organization Address [facility] Co de Phone Number [address] [place] [address], [place] * (ABNORMAL) D-Dimer (01/12/2025 5:11 PM EDT) D DIMER 259(H) 1 - 255 ug/mL 01/12/2025 5:46 PM EDT [facility] Comment:Results >255 ng/mL D DU: Results may [...] ORDERABLES Final Resu lt Performing Organization Address [facility] Co de Phone Number [address] [place] [address], [place] * (ABNORMAL) Comprehensive metabolic panel (01/12/2025 5:11 PM EDT) SODIUM 134 134 - 146 mmol/L 01/12/2025 6:05 PM EDT [facility] POTASSIUM 3.5 3.5 - 5.0 mmol/L 01/12/2025 6:05 PM EDT [facility] CHLORIDE 95(L) 98 - 109 mmol/L 01/12/2025 6:05 PM EDT [facility] CARBON DIOXIDE 25 22 - 32 mmol/L 01/12/2025 6:05 PM EDT [facility] ANION GAP 14 5 - 15 mmol/L 01/12/2025 6:05 PM EDT [facility] BLOOD UREA NITROGEN 41(H) 5 - 27 mg/dL 01/12/2025 6:05 PM EDT [facility] CREATININE 1.97(H) 0.70 - 1.20 mg/dL 01/12/2025 6:05 PM T [facility] Comment:METHOD TRACEABLE TO IDKY STANDARD GLUCOSE 125(H) 65 - 99 mg/dL 01/12/2025 6:05 PM EDT [facility] CALCIUM 9.0 8.5 - 10.5 mg/dL 01/12/2025 6:05 PM T [facility] TOTAL PROTEIN 7.5 6.0 - 8.0 g/dL 01/12/2025 6:05 PM [facility] ALBUMIN 3.5 3.2 - 5.3 g/dL 01/12/2025 6:05 PM T [facility] ALKALINE PHOSPHATASE 78 39 - 130 U/L 01/12/2025 6:05 PM EDT [facility] AST 105(H) <=41 U/L 01/12/2025 6:05 PM T [facility] ALT 43(H) <=40 U/L 01/12/2025 6:05 PM [facility] BILIRUBIN,TOTAL 2.2(H) 0.3 - 1.2 mg/dL 01/12/2025 6:05 PM T [facility] EGFR Non-Race Dependent 35(L) >=60 ml/min/1.7 3sq.m 01/12/2025 6:05 PM T [facility] Comment: eGFR not reported due to non-numeric value for Creatinine. Reported eGFR is based on the CKD-EPI 2020 equation that does not use a race coefficient. Blood Venous blood / Unknown Venipuncture / Unknown 01/12/2025 5:11 PM EDT 01/12/2025 5:32 PM EDT us Aleks He MD LAB BLOOD ORDERABLES Final Resu lt Performing Organization Address [facility] Co de Phone Number [address] [place] [address], [place] * (ABNORMAL) B-type natriuretic peptide (01/12/2025 5:11 PM EDT) BNP 352(H) <=100 pg/mL 01/12/2025 6:57 PM EDT [facility] Blood Venous blood / Unknown Venipuncture / Unknown 01/12/2025 5:11 PM EDT 01/12/2025 5:32 PM EDT us Aleks He MD LAB BLOOD ORDERABLES Final Resu lt Performing Organization Address [facility] Co de Phone Number [address] [place] [address], [place] * APTT (01/12/2025 5:11 PM EDT) APTT 34 26 - 37 sec 01/12/2025 5:46 PM EDT [facility] Blood Venous blood / Unknown Venipuncture / Unknown 01/12/2025 5:11 PM EDT 01/12/2025 5:32 PM EDT us Aleks He MD LAB BLOOD ORDERABLES Final Resu lt Performing Organization Address [facility] Co de Phone Number [address] [place] [address], [place] * (ABNORMAL) Protime & INR (01/12/2025 5:11 PM EDT) PROTIME 24.7(H) 9.8 - 13.2 sec 01/12/2025 5:46 PM EDT [facility] INR 2.1(H) 0.9 - 1.2 01/12/2025 5:46 PM EDT [facility] Blood Venous blood / Unknown Venipuncture / Unknown 01/12/2025 5:11 PM EDT 01/12/2025 5:32 PM EDT us Aleks He MD LAB BLOOD ORDERABLES Final Resu lt [facility] [address] [place] [address], [place] * (ABNORMAL) CBC auto differential (01/12/2025 5:11 PM EDT) WBC 22.7(H) 4 - 11 x10E9/L 01/12/2025 6:24 PM EDT [facility] RBC Count 4.72 4.1 - 5.7 X10E12/L 01/12/2025 6:24 PM EDT [facility] Hemoglobin 14.6 13 - 17 g/dL 01/12/2025 6:24 PM EDT [facility] Hematocrit 43.9 39 - 50 % 01/12/2025 6:24 PM EDT [facility] MCV 93 80 - 100 fL 01/12/2025 6:24 PM EDT [facility] MCH 31.0 27 - 34 pg 01/12/2025 6:24 PM EDT [facility] MCHC 33.3 32 - 36 g/dL 01/12/2025 6:24 PM EDT [facility] RDW 13.9 11.5 - 15 % 01/12/2025 6:24 PM EDT [facility] Platelet Count 208 150 - 450 [id number]/L 01/12/2025 6:24 PM EDT [facility] MPV 11.3 7 - 12 fL 01/12/2025 6:24 PM EDT [facility] Bands % 2 % 01/12/2025 6:24 PM EDT [facility] Comment:This is an appended report. These results have been appended to a previously preliminary verified report. Neutrophils % 90 % 01/12/2025 6:24 PM EDT [facility] Comment:This is an appended report. These results have been appended to a previously preliminary verified report. Lymphocytes % 2 % 01/12/2025 6:24 PM EDT [facility] Comment:This is an appended report. These results have been appended to a previously preliminary verified report. Monocytes % 6 % 01/12/2025 6:24 PM EDT [facility] Comment:This is an appended report. These results have been appended to a previously preliminary verified report. Neutrophils Absolute (M) 20.8(H) 1.5 - 6.6 10*3/uL 01/12/2025 6:24 PM EDT [facility] Comment:This is an appended report. These results have been appended to a previously preliminary verified report. Lymphocytes Absolute 0.5(L) 1.0 - 3.5 10*3/uL 01/12/2025 6:24 PM EDT [facility] Comment:This is an appended report. These results have been appended to a previously preliminary verified report. Monocytes Absolute 1.4(H) 0.0 - 0.9 10*3/uL 01/12/2025 6:24 PM EDT [facility] Comment:This is an appended report. These results have been appended to a previously preliminary verified report. RBC Morphology Normal 01/12/2025 6:24 PM EDT [facility] Comment:This is an appended report. These results have been appended to a previously preliminary verified report. Differential Type MANUAL DIFFERENTIAL 01/12/2025 6:24 PM EDT [facility] Comment:This is an appended report. These results have been appended to a previously preliminary verified report. Blood Venous blood / Unknown Venipuncture / Unknown 01/12/2025 5:11 PM EDT 01/12/2025 5:32 PM EDT Aleks He MD LAB BLOOD ORDERABLES Final Resu lt [facility] [address] [place] [address], [place] * ECG 12 lead (01/12/2025 4:46 PM EDT) 01/12/2025 4:46 PM EDT Narrative JOEUE - 01/12/2025 6:49 PM EDT us Aleks He MD ECG ORDERABLES Final Result CYNTHIA documented in this encounter Visit Diagnoses Not on filedocumented in this encounter Admitting Diagnoses Diagnosis Atrial [...] Given 01/13/2025 6:28 AM EDT 500 mg alum-mag hydroxide-simeth (MAALOX) 200-200-20 mg/5 mL suspension 30 mL 30 mL, oral, 4 times daily after meals and at bedtime as needed, dyspepsia, Starting on Sat01/12/25 at 2007, Look-alike/sound-alike medication - verify indication for use. Rishabh ballesteros., Indications: dyspepsiaIndications:dyspepsi a dextrose (GLUTOSE) 40 % gel 15 g [...] VESICANT (RED) Warning: HYPERTONIC solution. digoxin (LANOXIN) tablet 125 mcg 125 mcg, oral, Every other day, First dose on [place] 01/14/25 at 0900, [...] 9:43 AM EDT 15 mg/hr 15 mL/hr glucagon HCL injection 1 mg 1 mg, [...] 6:38 AM EDT 4,000 mg 25 mL/hr midodrine (PROAMATINE) tablet 5 mg 5 [...] [place] 01/14/25 at 1700, Dose adjusted per [facility] approved piperacillin-tazobactam policy. First dose of [...] PRN, constipation, Starting on Sat01/12/25 at 2008 sodium chloride 0.9 % flush 3 mL 3 mL, intravenous, As needed, line care, before and after each intermittent use, Starting on Sat01/12/25 at 1700 sodium chloride 0.9 % infusion 1,000 mL, intravenous, at 30 mL/hr, Continuous, Starting on [place] 01/14/25 at 1330, For 1 day New Bag 01/14/2025 1:29 PM EDT 1,000 mL 30 mL/hr sodium chloride 0.9% (NS) irrigation bottle As needed, Starting on [place] 01/14/25 at 1020, Intra-op Given 01/14/2025 10:50 AM EDT 500 mL Operative Site Given 01/14/2025 10:34 AM EDT 500 mL O perative Site Given 01/14/2025 10:20 AM EDT 500 mL O perative Site documented in this encounter Active and Recently [...] at 0915, Indication: Nonvalvular Atrial Fibrillation (NVAF) 28 (Given - Provider: Tricia Sierra RN) cefTRIAXone [...] for use. 1908 (Given - Provider: Daniela Champion, CHRISTOS) digoxin (LANOXIN) injection 500 mcg (COMPLETED) 500 mcg, intravenous, Once, On Sat01/13/25 at 1530, For 1 dose, Administer IVP slowly over at least 5 minutes. Look-alike/sound-alike medication - verify indication for use. 1538 (Given - Provider: Tricia Sierra, CHRISTOS) digoxin (LANOXIN) tablet 125 mcg 125 mcg, oral, Every other day, First dose on Sat01/14/25 at 0900, Look-alike/sound-alike medication - verify indication for use. 0900 (Due)0903 (MAR Hold - Provider: Automatic Transfer Provider - Reason: Patient not available)1210 (JUL Unhold - Provider: Automatic Transfer Provider) dilTIAZem (CARDIZEM) injection 10 mg (COMPLETED) 10 mg, intravenous, Once, On Sat01/12/25 at 1930, For 1 dose, IV push over 2 minutes. Look-alike/sound-alike medication - verify indication for use. 1958 (Given - Provider: Daniela Champion, CHRISTOS) dilTIAZem (CARDIZEM) injection 20 mg (COMPLETED) 20 mg, intravenous, Once, On Sat01/12/25 at 1705, For 1 dose, IV push over 2 minutes. Look-alike/sound-alike medication - verify indication for use. 1705 (Given - Provider: Arlen Hatfield, CHRISTOS) ipratropium (ATROVENT) 0.02 % nebulizer solution 0.5 mg 0.5 mg, nebulization, Every 4 hours while awake, First dose on Sat01/13/25 at 1130, Look-alike/sound-alike medication - verify indication for use., Implement INPATIENT/ED Bronchodilator Clinical Practice Guidelines? No 1130 (Not Given - Provider: Elisa Guzman RCP - Reason: Other)1421 (Given - Provider: Elisa Guzman RCP)1922 (Given - Provider: Kaylie Bruner RCP)2300 (Canceled Entry - Provider: Tricia [...] - Comment: Given at 1420 per previous RT)1922 (Given - Provider: Kaylie Bruner RCP) 0721 [...] Look-alike/sound-alike medication - verify indication for use. 09 (Given - Provider: Tricia Sierra RN)194 (Given - Provider: Haydee Coleman RN) 0742 (Given - Provider: Tricia Sierra RN) metroNIDAZOLE (FLAGYL) IVPB 500 mg/100 mL in iso-osmotic sodium chloride (5 mg/mL premix) (CANCELED) 500 mg, intravenous, at 100 mL/hr, Administer over 60 Minutes, Every 12 hours, First dose on Sat01/14/25 at 0700, Look-alike/sound-alike medication - verify indication for use., Indication: Intra-abdominal 0743 (New Bag - Provider: Tricia Sierra RN)0843 (Stop Bag - Provider: Tricia Sierra RN)0903 (MAR Hold - Provider: Automatic Transfer Provider - Reason: Patient not available)1210 (MAR Unhold - Provider: Automatic Transfer Provider) midodrine [...] [place] 01/14/25 at 1700, Dose adjusted per [facility] approved piperacillin-tazobactam policy. First dose of [...] 1300, For 1 dose, Loading dose per [facility] approved piperacillin-tazobactam policy. First dose of [...] over 2 Hours, Once, On Sat01/12/25 at 2014, For 1 dose 2107 (New Bag - [...] to Inpatient Floor - Provider: Ruthie Jernigan RN)215 (Rate/Dose Change - Provider: Ruthie Jernigan RN)221 (Rate/Dose Verify - Provider: Ruthie Jernigan RN)223 (Rate/Dose Verify - Provider: Ruthie Jernigan RN)224 (Rate/Dose Verify - Provider: Ruthie Jernigan RN)2322 [...] Tricia Sierra RN)0940 (Paused - Provider: Tricia Sierra RN)0943 (Restarted - Provider: Tricia Sierra RN)1311 (Rate/Dose Change - Provider: Tricia Sierra RN)1326 (Paused - Provider: Tricia Sierra RN)1329 (Restarted - Provider: Tricia Sierra RN)1330 (Stop Bag - Provider: Tricia Seirra RN)1744 (Not Given - Provider: Tricia Sierra [...] this medication: First, Wean Sequence: Wean First 121 (New Bag - Provider: Cynthia Wheeler RN)1506 [...] this medication: First, Wean Sequence: Wean First 1214 (Continued from Other Dept/Pre-Hospital - Provider: Cynthia [...] Coleman RN)184 (Restarted - Provider: Haydee Coleman RN)195 (Paused - Provider: Haydee Coleman RN)2022 (Restarted - Provider: Haydee Coleman RN)225 (Rate/Dose Verify - Provider: Haydee Coleman RN) 0404 (Paused - Provider: Haydee Coleman RN)0449 (Restarted - Provider: Haydee Coleman RN)0451 (Rate/Dose Verify - Provider: Haydee Coleman RN) sodium chloride 0.9 % infusion 1,000 mL, intravenous, at 30 mL/hr, Continuous, Starting on [place] 01/14/25 at 1330, For 1 day 1329 (New Bag - Provider: Tricia Sierra RN)1506 [...] (Given - Provider: Ivory Sanders RN) 09 ([facility] Hold - Provider: Automatic Transfer Provider - Reason: Patient not available)1210 ([facility] Unhold - Provider: Automatic Transfer Provider) alum-mag hydroxide-simeth (MAALOX) 200-200-20 mg/5 mL suspension 30 mL 30 mL, oral, 4 times daily after meals and at bedtime as needed, dyspepsia, Starting on Sat01/12/25 at 2007, Look-alike/sound-alike medication - verify indication for use. Rishabh ballesteros., Indications: dyspepsia 902 ([facility] Hold - Provider: Automatic Transfer Provider - Reason: Patient not available)1210 ([facility] Unhold - Provider: Automatic Transfer Provider) dextrose (GLUTOSE) 40 % gel 15 g 15 g, oral, As needed, low blood sugar, blood glucose less than 70 mg/dL, Starting on Sat01/12/25 at 2007, If patient conscious and taking PO. If blood glucose is not greater than 70 mg/dL after initial treatment, repeat treatment. 09 ([facility] Hold - Provider: Automatic Transfer Provider - Reason: Patient not available)1210 ([facility] Unhold - Provider: Automatic Transfer [...] mg/dL after initial treatment, repeat treatment. 902 ([facility] Hold - Provider: Automatic Transfer Provider - Reason: Patient not available)1210 ([facility] Unhold - Provider: Automatic Transfer [...] treatment. VESICANT (RED) Warning: HYPERTONIC solution. 902 ([facility] Hold - Provider: Automatic Transfer Provider - Reason: Patient not available)121 ([facility] Unhold - Provider: Automatic Transfer [...] mg/dL after initial treatment, repeat treatment. 902 ([facility] Hold - Provider: Automatic Transfer Provider - Reason: Patient not available)1210 ([facility] Unhold - Provider: Automatic Transfer Provider) HYDROcodone-acetaminophen (NORCO) 5-325 mg per tablet 1 tablet 1 tablet, oral, Every 6 hours PRN, moderate pain - pain scale 4-6, Starting on Sat01/13/25 at 1122, Look-alike/sound-alike medication - verify indication for use. 1139 (Given - Provider: Tricia Sierra, CHRISTOS)1754 (Given - Provider: Tricia Sierra RN) 902 ([facility] Hold - Provider: Automatic Transfer Provider - Reason: Patient not available)1210 ([facility] Unhold - Provider: Automatic Transfer [...] continue the replacement orders as needed. 0903 ([facility] Hold - Provider: Automatic Transfer Provider - Reason: Patient not available)1210 ([facility] Unhold - Provider: Automatic Transfer [...] Sanders RN)1026 (Stop Bag - Provider: Tricia Sierra RN)1032 (Stop Bag - Provider: Tricia Sierra, RN)1038 (Stop Bag - Provider: Tricia Sierra, CHRISTOS) 0903 ([facility] Hold - Provider: Automatic Transfer Provider - Reason: Patient not available)1210 ([facility] Unhold - Provider: Automatic Transfer Provider) ondansetron (PF) (ZOFRAN) injection 4 mg 4 mg, intravenous, Every 4 hours PRN, nausea, vomiting, Starting on Sat01/12/25 at 2007, Intravenous administration preferred to be given over 2-5 minutes. 0903 ([facility] Hold - Provider: Automatic Transfer Provider - Reason: Patient not available)1210 ([facility] Unhold - Provider: Automatic Transfer [...] Alternative - Provider: Ivory Sanders RN) 0903 ([facility] Hold - Provider: Automatic Transfer Provider - Reason: Patient not available)1210 ([facility] Unhold - Provider: Automatic Transfer [...] (Given - Provider: Ivory Sanders RN) 0903 ([facility] Hold - Provider: Automatic Transfer Provider - Reason: Patient not available)1210 ([facility] Unhold - Provider: Automatic Transfer [...] Alternative - Provider: Ivory Sanders RN) 0903 ([facility] Hold - Provider: Automatic Transfer Provider - Reason: Patient not available)1210 ([facility] Unhold - Provider: Automatic Transfer Provider) sennosides-docusate sodium (SENOKOT-S) 8.6-50 mg 1 tablet 1 tablet, oral, Every 12 hours PRN, constipation, Starting on Sat01/12/25 at 2008 0903 ([facility] Hold - Provider: Automatic Transfer Provider - Reason: Patient not available)1210 ([facility] Unhold - Provider: Automatic Transfer Provider) sodium chloride 0.9 % flush 3 mL 3 mL, intravenous, As needed, line care, before and after each intermittent use, Starting on Sat01/12/25 at 1700 0903 ([facility] Hold - Provider: Automatic Transfer Provider - Reason: Patient not available)1210 ([facility] Unhold - Provider: Automatic Transfer [...] 1300, For 1 dose, Loading dose per [facility] approved piperacillin-tazobactam policy. First dose of [...] Hours, Every 8 hours, First dose on Sat01/14/25 at 1700, Dose adjusted per [facility] approved piperacillin- tazobactam policy. First dose [...] documented as of this encounter Care Teams Conference And Event Organiser Relationship Specialty Start Date End Date No Pcp, No Pcp MICHAEL Zelaya [id number] PCP - General Family Medicine 11/24/18 documented as of this encounter
--- OUTSIDE RECORDS SUMMARY | 2025-01-14 09:03 | XMS_ITS | Encounter Summary ---
Author Organization [facility] tem Address [facility] [id number] [address] [place] [address] Care Team Providers Care Applications Development Analyst Name Role Phone No Pcp, No Pcp Primary Care Provider Unavailabl e Reason for Visit * Auth/Cert Specialty Diagnoses / Procedures Referred By Contac t Referred To Contact Diagnoses Tachycardia Atrial fibrillation with rapid ventricular response ([facility]) [facility] - Emergency [address] [place] [address] Phone: tel: fax: Referral ID Status Reason Start Date Expiration Date Visits Re quested Visits Authorized [id number] 1 1 Encounter Details Date Type Department Care Team (Late st Contact Info) Description 01/14/2025 9:03 AM EDT Anesthesia Event [facility] - Surgery [address] [place] [address] Reynaldo Juarez MD [address] [place] [address] Anesthesia Record Procedure Summary Procedure Name Responsible Anesthesiologist Anesthesia Start Time Anesthesia Stop Time REPAIR HERNIA INGUINAL (Left: Groin) Reynaldo Juarez MD 01/14/25 0903 01/14/25 1202 Events Date Time Event Comment 01/14/2025 0857 0903 An Start 0903 An Start Data 0913 An Induction The patient was reevaluated immediately before moderate or deep sedation use and before anesthesia induction. 0914 An Intubation 0916 Position 0930 an bk now 0950 Patient Ready for Surgeon 1201 an stop data 1201 Transport/Transfer From the OR 1201 Handoff to RN Transported to :ICU, Spontaneous Ventilation and Intubated, O2 per Ambu, 8 LPM Pt. Tolerated procedure well, vital signs stable and document on nursing record Care transferred to receiving RN 1202 An Stop Meds Name Total midazolam (VERSED) injection 2 mg/2 mL 2 mg fentaNYL (SUBLIMAZE) injection 100 mcg propofol (DIPRIVAN) injection 418.24 mg lidocaine (XYLOCAINE) injection 2% 50 mg ketamine injection 25 mg/0.5 mL syringe 50 mg rocuronium (ZEMURON) 50 mg/5 mL injectio n 50 mg dexAMETHasone (DECADRON) injection 4 mg/ mL 8 mg ondansetron PF (ZOFRAN) 2 mg/mL injectio n 4 mg acetaminophen (OFIRMEV) injection 1,000 mg vasopressin (PITRESSIN) injection 14 Uni ts albumin human bottle 25% 50 g metoprolol (LOPRESSOR) injection 2 mg phenylephrine (LAURIE-SYNEPHRINE) injection 10 mg/mL 400 mcg albuterol (PROVENTIL HFA;VENTOLIN HFA) i nhaler 4 puff sodium bicarbonate injection 1 mEq/mL 50 mEq norepinephrine (LEVOPHED) in fusion 8 mg/250 mL in sod chlor 0.9% (0.032 mg/mL PMX) 0.12 mg lactated ringers infusion 2,500 mL * Agents Name Sevoflurane Inspired Sevoflurane * Blood No blood administrations on file. Lines, Drains, and Airways Type Details Placement Removal Wound 01/14/25; 0846; Inci emely; Groin; Left 01/14/25 0846 by Marco A Kemp RN Colostomy 01/14/25; 1102; Dr.O gamino; OR; Standard precautions, Gloves, Gown, Mask, Face shield, Sterile field, Sterile drape, Sterile gown, Sterile gloves, Surgical cap; LLQ; Tolerated well 01/14/25 1102 by Marco A Kemp RN Peripheral IV Placement Date: 12/26 06/20; Placement Time: 0450; Catheter Size: 20 G; Orientation: Left; Location: Antecubital; Site Prep: Chlorhexadine; Technique: Anatomical landmarks; Inserted by: Lilian Gaona RN; Insertion Attempts: 1; Patient Tolerance: Tolerated well; Removal Date: 01/18/25; Removal Time: 202901/14/25449 by Lilian Gaona RN 01/18/252029 by Jess Velasquez Peripheral IV Placement Date: 12/26 06/20; Placement Time: 09; Catheter Size: 16 G; Orientation: Right; Location: Hand; Site Prep: Chlorhexadine and isopropyl alcohol; Local Anes: None; Technique: Anatomical landmarks; Insertion Attempts: 1; Patient Tolerance: Tolerated well; Removal Date: 01/18/25; Removal Time: 09; Removal Reason: Leaking 01/14/25 0900 by MAIDA Darnell 01/18/25 09 by Brittney Knox RN ETT Placement Date: 12/26 06/20; Placement Time: 913 (created via procedure documentation); Type: Cuffed (MOV); Tube Size: 7.5 mm; Laryngoscope: Mac; Blade Size: 4; Location: Oral; Grade View: 1; Insertion Attempts: 1; Placement Verification: Auscultation, End tidal CO2, Symmetrical chest wall movement; Removal Date: 01/15/25; Removal Time: 1138 01/14/25 0914 by MAIDA Darnell 01/15/25 1138 by Jess Velasquez Urethral Catheter Placement Date: 12/26 06/20; Placement Time: 924; Inserted by: Marco A SHER; Type: Single lumen; Size: 16 Fr.; Balloon Size: 10 mL; Urine Returned: Yes; Removal Date: 01/14/25; Removal Time: 1140 01/14/25 0925 by Marco A Kemp RN 01/14/25 1140 by Marco A Kemp RN Arterial Line Placement Date: 12/26 06/20; Placemnt Time: 0950; Size: 20 G; Orientation: Right; Location: Radial; Site Prep: Chlorhexadine and isopropyl alcohol; Local Anesth: None; Technique: Anatomical landmarks, Guidewire; Inserted by: nereyda bell; Insertion Attempts: 2; Securement: Taped, Transparent Dressing; Pt Tolerance: Tolerated well; Removal Date: 01/15/25; Removal Time: 1500; Removal Reason: Per order/protocol 01/14/25 0950 by MAIDA Darnell 01/15/25 1500 by Jess Velasquez Closed/Suction Drain 01/14/25; 1040; Dr. Ramirez; OR; Standard precautions, Surgical cap, Sterile gloves, Sterile gown, Sterile drape, Mask, Face shield, Sterile field; 1; Anterior, Left; Other (Comment) (Inguinal incision); Bulb; 15 Fr.; Tolerated well; Surgery; Therapy complete 01/14/25 1040 by Marco A Kemp RN 01/20/25 1400 by Reynaldo Velez RN NG/OG Tube Placement Date: 12/26 06/20; Placement Time: 1105; Type: Orogastric; Size: 18 Fr; Location: Mouth; Removal Date: 01/15/25; Removal Time: 1138 01/14/25 1105 by MAIDA Darnell 01/15/25 1138 by Jess Velasquez Urethral Catheter Placement Date: 12/26 06/20; Placement Time: 1122; Inserted by: ; Type: Single lumen; Balloon Size: 10 mL; Removal Date: 01/14/25; Removal Time: 1135 01/14/25 1122 by Marco A Kemp RN 01/14/25 1135 by Marco A Kemp RN documented in this encounter Social History Tobacco Use Types Packs/Day Years Used Date Smoking Tobacco: Never Smokeless Tobacco: Never Alcohol Use Standard Drinks/Week Comments No 0 (1 standard drink = 0.6 oz pur e alcohol) [facility] Utilities Answer Date Recorded In the past 12 months has Relationship Science, gas, oil, or water Reflektion threatened to shut off services in your [...] on file documented as of this encounter OR Notes * Anesthesia Postprocedure Evaluation - Reynaldo Juarez MD - 01/14/2025 3:51 PM EDT ANESTHESIA POST-EVALUATION [facility] Procedure Summary Date: 01/14/25 Room / Location: [facility] OR [address] [place] [address] SURGERY Anesthesia Start: 902 Anesthesia Stop: 120 Procedures: REPAIR HERNIA INGUINAL (Left: Groin) ORCHIECTOMY (Left: Scrotum) CREATION COLOSTOMY (Left: Abdomen) Diagnosis: (incarcerated left inguinal hernia) Surgeons: Delmar Ramirez MD Responsible Provider: Reynaldo Juarez MD Anesthesia Type: general endotracheal ASA Status: 3 - Emergent Vitals: 01/14/25 1359 BP: Pulse: 87 Resp: 18 Temp: SpO2: 96% Patient Evaluated: PACU Patient Participation: Complete - patient participated Patient Level of Consciousness: Awake Pain Management: Adequate Airway Patency: Patent Anesthetic Complications: No Cardiovascular Status: Hemodynamically Stable and Returned to baseline Respiratory Status: Stable/Baseline, Nonlabored Ventilation and Room Air Post-op Hydration: Euvolemic Final Anesthesia Type: general endotracheal Does patient meet criteria to D/C from PACU?: Yes Is patient sedated pharmacologically at PACU D/C?: No No notable events documented. * Anesthesia Procedure Notes - Deborah Bell APRN-FLAP PRESSER - 01/14/2025 9:59 AM EDT Associated Order(s): Airway Airway Patient location during procedure: OR Urgency: Elective Date/Time: 01/14/2025 9:14 AM Airway not difficult IV In Situ: Peripheral General Information and Staff Service Provider: MAIDA Darnell Placed by: MAIDA Darnell Patient Identified, IV Checked, Risks and Benefits Discussed, Surgical Consent, Monitors and Equipment Checked, Pre-op Evaluation and Timeout Performed Fire Risk Assessment Score: 0 Consent for Emergent Airway (if performed for an anesthetic, see related documentation for consents) Risks and benefits: risks, benefits and alternatives were discussed Indications and Patient Condition Sedation level: Deep Preoxygenated: yesPatient position: Supine and Sniffing MILS maintained throughout Mask difficulty assessment: Not Attempted Indications for airway management: Anesthesia Complications: No Complicating Factors: No Final Airway Details Final airway type: ETT Endotracheal airway: Cuffed and ETT - Single Lumen (MOV) Techniques used for successful ETT Placement: Direct Laryngoscopy and Without Stylet Cormack-Lehane Classification: Grade I Endotracheal tube insertion site: Oral Dentition Check Pre: Dentures/Partials Removed Post Intubation Trauma? No Visibility: Cords Clear Blade: Rosalinda Blade size: #4 Placement verified by: chest auscultation, capnography and symmetrical chest wall movement ETT size: 7.5 mm Measured from: Lips Secured at (cm): 22 Number of other approaches attempted: 0 Number of attempts at approach: 1 * Anesthesia Preprocedure Evaluation - Reynaldo Juarez MD - 01/14/2025 8:57 AM EDT Images from the original note were not included. ANESTHESIA PRE-PROCEDURE EVALUATION [facility] Procedure(s): REPAIR HERNIA INGUINAL ANESTHESIA PHYSICAL EXAM Patient summary reviewed and nursing notes reviewed. Echocardiogram reviewed and stress test reviewed Airway Mallampati: II TM distance: >3 FB Neck ROM: full Patient is not intubated Patient does not have tracheostomy Dental : exam normal Pulmonary : exam normal Cardiovascular : exam normal ECG reviewed Neuro Abdominal : exam normal Other Findings ANESTHESIA PLAN ASA 3 - Emergent Anesthesia Type: general endotracheal Induction: Intravenous Anesthetic risks, plan and alternatives discussed with Patient and Spouse. Use of blood products discussed with who consented to blood products. Plan discussed with Attending and FLAP PRESSER. Airway Management: Endotracheal Post op Pain Management: IV Analgesics Transfer to PACU PONV: Intermediate Risk Total Score: 2 Non-smoker Intended opioid administration Criteria that do not apply: Female patient History of PONV and/or Motion Sickness RCRI: Intermediate Risk: Score of 2 = 10.1% (8.1-12.6%) Risk of major cardiac event Total Score: 2 Cerebrovascular Disease Congestive Heart Failure Criteria that do not apply: Ischemic Heart Disease Elevated Risk Surgery Pre-operative Treatment with Insulin Pre-operative Creatinine >2 mg/dL / 176.8 mol/L Patient Active Problem List Diagnosis Contracture of finger joint Stroke (CMS-HCC) Paroxysmal atrial fibrillation (CMS-HCC) Bluish skin discoloration Diverticulosis of colon Gastritis and duodenitis GI bleed Mesenteric artery stenosis Cerebral infarction (CMS-HCC) Cardiomyopathy, nonischemic (CMS-HCC) Atrial fibrillation with rapid ventricular response (CMS-HCC) documented in this encounter Plan of Treatment Upcoming Encounters Date Type Department Care Team (Late st Contact Info) Description 02/11/2025 10:15 AM EDT Office Visit [facility] [address] [place] [id number] Kerrie Seals, EQUIPMENT SCHEDULER-[facility] [address] [place] [address] 03/10/2025 2:30 PM EDT Office Visit [facility] [address] [place] [id number] Dar Gaines MD [address] [place] [address] documented as of this encounter Procedures Procedure Name Priority Date/Time Associated Diagnosis Comments W[place] AN ELECTIVE ENDOTRACHEAL AIRWAY Routine 01/14/2025 9:14 AM EDT documented in this encounter Results * [place] AN ELECTIVE ENDOTRACHEAL AIRWAY (01/14/2025 9:14 AM EDT) Deborah Peña APRN-CRNA - 01/14/2025 9:14 AM EDT MAIDA Darnell 01/14/2025 10:02 AM Airway Patient location during procedure: OR Urgency: Elective Date/Time: 01/14/2025 9:14 AM Airway not difficult IV In Situ: Peripheral General Information and Staff Service Provider: MAIDA Darnell Placed by: MAIDA Darnell Patient Identified, IV Checked, Risks and Benefits Discussed, Surgical Consent, Monitors and Equipment Checked, Pre-op Evaluation and Timeout Performed Fire Risk Assessment Score: 0 Consent for Emergent Airway (if performed for an anesthetic, see related documentation for consents) Risks and benefits: risks, benefits and alternatives were discussed Indications and Patient Condition Sedation level: Deep Preoxygenated: yesPatient position: Supine and Sniffing MILS maintained throughout Mask difficulty assessment: Not Attempted Indications for airway management: Anesthesia Complications: No Complicating Factors: No Final Airway Details Final airway type: ETT Endotracheal airway: Cuffed and ETT - Single Lumen (MOV) Techniques used for successful ETT Placement: Direct Laryngoscopy and Without Stylet Cormack-Lehane Classification: Grade I Endotracheal tube insertion site: Oral Dentition Check Pre: Dentures/Partials Removed Post Intubation Trauma? No Visibility: Cords Clear Blade: Rosalinda Blade size: #4 Placement verified by: chest auscultation, capnography and symmetrical chest wall movement ETT size: 7.5 mm Measured from: Lips Secured at (cm): 22 Number of other approaches attempted: 0 Number of attempts at approach: 1 Reynaldo Juarez MD ANESTHESIA ORDERABLES Edited Result - Final documented in this encounter Visit Diagnoses Not on filedocumented in this encounter Administered Medications Inactive Administered Medications - up to 3 most recent administrations Medication Order MAR Action Action Date Dose Rate Site acetaminophen (OFIRMEV) IVPB Premix intravenous, Administer over 15 Minutes, As needed, Starting on [place] 01/14/25 at 0959, Anesthesia Intra-op Given 01/14/2025 9:59 AM EDT 1,000 mg albumin human 25 % IVPB Premix intravenous, As needed, Starting on [place] 01/14/25 at 1004, Anesthesia Intra-op Given 01/14/2025 10:04 AM EDT 25 g Given 01/14/2025 9:19 AM EDT 25 g albuterol (PROVENTIL HFA;VENTOLIN HFA) inhaler inhalation, As needed, Starting on [place] 01/14/25 at 1019, Anesthesia Intra-op Given 01/14/2025 10:19 AM EDT 4 puff s dexAMETHasone (DECADRON) injection intravenous, As needed, Starting on [place] 01/14/25 at 0913, Anesthesia Intra-op Given 01/14/2025 9:13 AM EDT 8 mg fentaNYL (SUBLIMAZE) injection intravenous, As needed, Starting on [place] 01/14/25 at 0913, Anesthesia Intra-op Given 01/14/2025 9:16 AM EDT 50 mcg Given 01/14/2025 9:13 AM EDT 50 mcg ketamine injection intravenous, As needed, Starting on [place] 01/14/25 at 0913, Anesthesia Intra-op Given 01/14/2025 9:16 AM EDT 25 mg Given 01/14/2025 9:13 AM EDT 25 mg lactated ringers infusion intravenous, Continuous PRN, Starting on [place] 01/14/25 at 0903, Anesthesia Intra-op New Bag 01/14/2025 10:11 AM EDT New Bag 01/14/2025 9:03 AM EDT New Bag 01/14/2025 8:58 AM EDT lidocaine (XYLOCAINE) 20 mg/mL (2 %) injection intravenous, As needed, Starting on [place] 01/14/25 at 0913, Anesthesia Intra-op Given 01/14/2025 9:13 AM EDT 50 mg metoprolol (LOPRESSOR) injection intravenous, As needed, Starting on [place] 01/14/25 at 0913, Anesthesia Intra-op Given 01/14/2025 9:13 AM EDT 2 mg midazolam (VERSED) injection intravenous, As needed, Starting on [place] 01/14/25 at 0913, Anesthesia Intra-op Given 01/14/2025 9:16 AM EDT 1 mg Given 01/14/2025 9:13 AM EDT 1 mg norepinephrine (LEVOPHED) infusion 8 mg/250 mL in sod chlor 0.9% (0.032 mg/mL PMX) intravenous, Continuous PRN, Starting on [place] 01/14/25 at 1052, Anesthesia Intra-op New Bag 01/14/2025 10:52 AM EDT 0.02 mcg/kg/min 3.12 mL/hr ondansetron (PF) (ZOFRAN) injection intravenous, As needed, Starting on [place] 01/14/25 at 0913, Anesthesia Intra-op Given 01/14/2025 9:13 AM EDT 4 mg phenylephrine (LAURIE-SYNEPHRINE) injection intravenous, As needed, Starting on [place] 01/14/25 at 1006, Anesthesia Intra-op Given 01/14/2025 10:06 AM EDT 100 mcg Given 01/14/2025 9:22 AM EDT 100 mcg Given 01/14/2025 9:19 AM EDT 100 mcg propofoL (DIPRIVAN) infusion intravenous, As needed, Starting on [place] 01/14/25 at 0913, Anesthesia Intra-op New Bag 01/14/2025 11:11 AM EDT 75 mcg/kg/min 37.44 mL/hr Given 01/14/2025 9:13 AM EDT 100 mg rocuronium (ZEMURON) injection intravenous, As needed, Starting on [place] 01/14/25 at 0913, Anesthesia Intra-op Given 01/14/2025 9:13 AM EDT 50 mg sodium bicarbonate 8.4 % (1 mEq/mL) injection intravenous, As needed, Starting on [place] 01/14/25 at 1042, Anesthesia Intra-op Given 01/14/2025 10:42 AM EDT 50 mEq vasopressin (PITRESSIN) injection intravenous, As needed, Starting on [place] 01/14/25 at 0930, Anesthesia Intra-op Given 01/14/2025 10:34 AM EDT 2 Unit s Given 01/14/2025 10:20 AM EDT 2 Units Given 01/14/2025 10:08 AM EDT 2 Units documented in this encounter Additional Health Concerns Assessment Noted Time PHQ-9 Depression Total Score: 0 04/15/20 17 1:00 PM EST documented as of this encounter Care Teams Applications Development Analyst Relationship Specialty Start Date End Date No Pcp, No Pcp MICHAEL Zelaya [id number] PCP - General Family Medicine 11/24/18 documented as of this encounter
--- OUTSIDE RECORDS SUMMARY | 2025-01-14 15:03 | XMS_ITS | Encounter Summary ---
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 Role Phone No Pcp, No Pcp Primary Care Provider Unavailabl e Reason for Referral * Consultation (Routine) - Pending Review Specialty Diagnoses / Procedures Referred By Contac t Referred To Contact Wound Care Diagnoses Colostomy present ([facility]) Sarah Lester APRN-CNP [address] [place] [address] Phone: tel: fax: [facility] [address] [place] [address] Phone: tel: fax: Referral ID Status Reason Start Date Expiration Date Visits Requested Visits Authorized [id number] Pending Review Specialty Services Required 01/22/2025 01/22/2026 1 1 * Misc (Routine) - Pending Review Specialty Diagnoses / Procedures Referred By Contac t Referred To Contact Procedures Wound care (specify) Sarah Lester APRN-CNP [address] [place] [address] Phone: tel: fax: Referral ID Status Reason Start Date Expiration Date V isits Requested Visits Authorized [id number] Pending Review 01/22/2025 01/22/2026 1 1 * Misc (Routine) - Pending Review Specialty Diagnoses / Procedures Referred By Contac t Referred To Contact Procedures Remove dressing (specify when) Sarah Lester APRN-CNP [address] [place] [address] Phone: tel: fax: Referral ID Status Reason Start Date Expiration Date V isits Requested Visits Authorized [id number] Pending Review 01/22/2025 01/22/2026 1 1 * Misc (Routine) - Pending Review Specialty Diagnoses / Procedures Referred By Contac t Referred To Contact Diagnoses Perforated diverticulum of large intestine Procedures PICC Line Removal Anne Alexander APRN-CNP [address] [address] Phone: tel: fax: Referral ID Status Reason Start Date Expiration Date V isits Requested Visits Authorized [id number] Pending Review 01/21/2025 01/21/2026 1 1 * Consultation (Routine) - Pending Review Specialty Diagnoses / Procedures Referred By Contac t Referred To Contact Wound Care Diagnoses Encounter for ostomy nurse consultation Colostomy in place ([facility]) Romel Mckeon ELEVATOR RUNNER-PRIVATE EQUITY ANALYST [address] [place] [address] Phone: tel: fax: [facility] [address] [place] [phone] Phone: tel: fax: Referral ID Status Reason Start Date Expiration Date Visits Requested Visits Authorized [id number] Pending Review Specialty Services Required 01/20/2025 01/20/2026 1 1 Reason for Visit * Auth/Cert Specialty Diagnoses / Procedures Referred By Isaias adame Referred To Contact Diagnoses Afib with RVR [place] [address] Referral ID Status Reason Start Date Expiration Date Visits Re quested Visits Authorized [id number] 1 1 Encounter Details Date Type Department Care Team (Latest Contact Info) Description 01/14/2025 3:03 PM EDT - 01/22/2025 1:00 PM EDT Hospital Encounter [facility] - Acute Care Unit [address] [facility] [place] [id number] Javad Horvath MD [address] [place] [address] Chyna Sanchez MD [address] [place] [address] Encounter for ostomy nurse consultation (Primary Dx); Colostomy in place [place] Perforated diverticulum of large intestine; S/P partial resection of colon; Colostomy present [place] Discharge Disposition: Alf Facility-Medicare Cert Social History Tobacco Use Types Packs/Day Years Used Date Smoking Tobacco: Never Smokeless Tobacco: Never Alcohol Use Standard Drinks/Week Comments No 0 (1 standard drink = 0.6 oz pur e alcohol) [facility] Utilities Answer Date Recorded In the past 12 months has [employer], gas, oil, or water [employer] threatened to shut off services in your [...] Sign Reading Time Taken Comments Blood Pressure 98/62 01/22/2025 11:23 AM EDT Pulse 59 01/22/2025 11:44 AM EDT Temperature 36.8 C (98.2 F) 01/22/2025 11:23 AM EDT Respiratory Rate 18 01/22/2025 11:44 AM EDT Oxygen Saturation 88% 01/22/2025 11:44 AM EDT Inhaled Oxygen Concentration - - Weight 86.8 kg (191 lb 5.8 oz) 01/22/2025 4:47 A M EDT Height 177.8 cm (5' 10 ) 01/14/2025 3:25 PM EDT Body Mass Index 27.46 01/14/2025 3:25 PM EDT documented in this encounter Functional Status documented as of this encounter Mental Status * Question Answer Entry Date Author Overall Cognitive Status WFL 01/20/2025 1:46 PM EDT Hanane Zuleta OTR/Ct documented in this encounter Discharge Summaries * Chyna Sanchez MD - 01/22/2025 6:48 AM EDT Images from the original note were not included. [facility] INTERNAL MEDICINE [facility] - AC[facility]ARE UN[facility] [address] [facility] [phone] [facility] Discharge Summary Patient: Paul Guerrero Date of : 1950 Room: 2/ Encounter date: 01/22/25 Hospital Day: 9 DATE OF ADMISSION: 01/14/2025 DATE OF DISCHARGE:01/22/2025 DISCHARGE DIAGNOSES Principal Problem: Acute respiratory failure with hypoxia (CMS-HCC) Active Problems: Paroxysmal atrial fibrillation (CMS-HCC) Cardiomyopathy, nonischemic (CMS-HCC) Atrial fibrillation with rapid ventricular response (CMS-HCC) A-fib (CMS-HCC) ELLY (acute kidney injury) Scrotal swelling Colostomy present ([facility]) Fall Traumatic rhabdomyolysis History of CVA (cerebrovascular accident) Hypotension Septic shock ([facility]) H/O unilateral orchiectomy H/O left inguinal hernia repair S/P partial resection of colon [facility] Wound care Infectious Disease Cardiology Urology Pulmonology General surgery PCP: NO PCP, NO PCP PROCEDURES Chest x-ray Chest x-ray Chest x-ray Chest x-ray Echo complete PICC line placement primary incarcerated left inguinal hernia repair, Sigmoid colectomy with end- colostomy, left orchiectomy, omentectomy on 01/14/25. HOSPITAL COURSE SUMMARY 01/14/2025 Paul Guerrero is a 74 y.o. male who presents from [facility] as he had to remain intubated post op. Patient initially presented to [place] ED following a fall. Pt noted he had recently been sick and feeling fatigued and weak for 2 days. When he got out of bed he said he had a hard time walking and fell. Stated he hurt his knees and his face. In ED on EKG noted to be in afib RVR. Cardiology was consulted and patient was started on Cardizem drip. Patient had scrotal swelling and General surgery was consulted. In his groin that has been present for years, over the last few days the hernia has grown significantly in size and his scrotum became swollen. patient to OR for Possible herniated bowelthrough scrotal sac. Patient to OR for open left inguinal hernia repair, patient ended up having hernia repair, orchiectomy and colostomy creation. Patient remained intubated postop and was transferred to [facility] for further management. Cardiology, pulmonology, Urology, and General surgery consulted. Patient remains on Levophed drip and is sedated on Diprivan. 01/15/2025 Status: improved. No overnight events. Patient likely to be extubated today. Off levophed. To be seen by general surgery. 01/16/2025 Status: improved. No overnight events. Patient was extubated yesterday, remains on 2 L NC at this time. Continue Rocephin and Flagyl for intra-abdominal coverage. Resume home Eliquis once patient taking in oral intake. 01/17/2025 Status: worsened. No overnight events. Patient placed on 15 L NC. ABG obtain due to patient's altered mental status. Patient to be placed on high flow nasal cannula. Resume cardizem drip per cardiology. 01/18/2025 Status: improved. No overnight events. Patient was seen and examined at the bedside No signs of acute distress noted at this time Remains on Cardene and heparin gtt Continue to wean off of cardizem gtt Started on Cardizem 30 mg t.I.d. POD#4 Laparotomy, LIH repair, Left orchiectomy, omentectomy, and Tracy's procedure 01/19/2025 Status: unchanged. No overnight events. Patient was seen and examined at the bedside No signs of acute distress noted at this time No chest pain or dizziness Currently on 1 L of oxygen via nasal cannula Required 1 time dose of digoxin this a.m. Okay to transfer out of the unit 01/20/2025 Status: improved. No overnight events. Patient was seen and examined at the bedside No signs of acute distress noted at this time No chest pain or dizziness No nausea or vomiting Hemodynamically stable for discharge Currently awaiting placement Discontinue ceftriaxone Flagyl Start Zosyn micafungin Continue Zosyn until February 10 Continue micafungin until February 16 01/21/2025 Status: improved. No overnight events. Patient seen and examined at the bedside No signs of acute distress noted at this time No chest pain or dizziness No nausea or vomiting Hemodynamically stable for discharge Awaiting precert 01/22/2025 Day of discharge Patient was seen and examined at the bedside. No signs of acute distress noted at this time. No chest pain or dizziness. No nausea or vomiting. Currently remains on room air at this time. Has been upambulating throughout the room with the assistance. Patient is currently hemodynamically stable fordischarge today 01/22/2025. Educated on the importance of following up with General surgery outpatient within 1-2 weeks. Patient was also educated on the importance of following up with pulmonology outpatient within 1-2 weeks. Patient will discharge to a [facility] facility for rehabilitation. Review of Systems Constitutional: Negative for activity change, appetite change, chills, fatigue, fever and unexpected weight change. HENT: Negative for trouble swallowing. Respiratory: Negative for cough, shortness of breath, wheezing, and sputum production. Cardiovascular: Negative for chest pain, palpitations and leg swelling. Gastrointestinal: Negative for abdominal pain, blood in stool, melena, constipation, diarrhea, nausea and vomiting. Genitourinary: Negative for difficulty urinating. Skin: Negative for color change, rash and wound. Neurological: Negative for dizziness, seizures, speech difficulty and headaches. Positive for weakness Psychiatric/Behavioral: Negative for sleep disturbance. Physical Exam BP 98/62 Pulse 70 Temp 36.8 ??C (98.2 ??F) (Oral) Resp 16 Ht 177.8 cm (5' 10 ) Wt 86.8 kg(191 lb 5.8 oz) SpO2 92% BMI 27.46 kg/m?? Temp: [36.3 ??C (97.4 ??F)-36.8 ??C (98.2 ??F)] 36.8 ??C (98.2 ??F) Pulse: [67-103] 70 Resp: [16-22] 16 BP: (98-126)/(56-68) 98/62 FiO2 (%): [21 %] 21 % SpO2: [87 %-99 %] 92 % O2 Device: Nasal cannula O2 Flow Rate (L/min): [0 L/min-0.5 L/min] 0.5 L/min Intake/Output Summary (Last 24 hours) at 01/22/2025 1128 Last data filed at 01/21/2025 1527 Gross per 24 hour Intake -- Output 550 ml Net -550 ml Constitutional: General: No acute distress. Cardiovascular: Rate and Rhythm: Normal rate and regular rhythm. Heart sounds: Normal heart sounds, S1 normal and S2 normal. Pulmonary: Effort: Pulmonary effort is normal. Breath sounds: Normal breath sounds. Musculoskeletal: Right lower leg: No edema. Left lower leg: No edema. Skin: General: Skin is warm and dry. Coloration: Skin is not pale. Comments: Colostomy in plac Neurological: General: No focal deficit present. Psychiatric: Mood and Affect: Mood normal. Behavior: Behavior normal. Labs Recent Results (from the past 48 hours) Magnesium Collection Time: 01/20/25 11:44 AM Result Value Ref Range MAGNESIUM 2.3 1.8 - 2.6 mg/dL Comprehensive metabolic panel Collection Time: 01/21/25 2:39 AM Result Value Ref Range SODIUM 139 134 - 146 mmol/L POTASSIUM 4.2 3.5 - 5.0 mmol/L CHLORIDE 98 98 - 109 mmol/L CARBON DIOXIDE 32 22 - 32 mmol/L ANION GAP 9 5 - 15 mmol/L BLOOD UREA NITROGEN 29 (H) 5 - 27 mg/dL CREATININE 0.90 0.70 - 1.20 mg/dL GLUCOSE 111 (H) 65 - 99 mg/dL CALCIUM 8.0 (L) 8.5 - 10.5 mg/dL TOTAL PROTEIN 5.2 (L) 6.0 - 8.0 g/dL ALBUMIN 2.4 (L) 3.2 - 5.3 g/dL ALKALINE PHOSPHATASE 52 39 - 130 U/L AST 49 (H) <=41 U/L ALT 40 <=40 U/L BILIRUBIN,TOTAL 0.8 0.3 - 1.2 mg/dL EGFR Non-Race Dependent 90 >=60 ml/min/1.73sq.m Magnesium Collection Time: 01/21/25 2:39 AM Result Value Ref Range MAGNESIUM 2.0 1.8 - 2.6 mg/dL CBC auto differential Collection Time: 01/21/25 2:39 AM Result Value Ref Range WBC 15.4 (H) 4 - 11 x10E9/L RBC Count 3.55 (L) 4.1 - 5.7 X10E12/L Hemoglobin 11.2 (L) 13 - 17 g/dL Hematocrit 33.3 (L) 39 - 50 % MCV 94 80 - 100 fL MCH 31.4 27 - 34 pg MCHC 33.5 32 - 36 g/dL RDW 14.6 11.5 - 15 % Platelet Count 339 150 - 450 X10E9/L MPV 7.6 7 - 12 fL Bands % 1 % Neutrophils % 89 % Lymphocytes % 5 % Monocytes % 2 % Eosinophils % 3 % Neutrophils Absolute (M) 13.8 (H) 1.5 - 6.6 10*3/uL Lymphocytes Absolute 0.8 (L) 1.0 - 3.5 10*3/uL Monocytes Absolute 0.3 0.0 - 0.9 10*3/uL Eosinophils Absolute 0.5 (H) 0.0 - 0.4 10*3/uL RBC Morphology Normal Differential Type MANUAL DIFFERENTIAL Comprehensive metabolic panel Collection Time: 01/22/25 3:55 AM Result Value Ref Range SODIUM 137 134 - 146 mmol/L POTASSIUM 4.2 3.5 - 5.0 mmol/L CHLORIDE 101 98 - 109 mmol/L CARBON DIOXIDE 31 22 - 32 mmol/L ANION GAP 5 5 - 15 mmol/L BLOOD UREA NITROGEN 24 5 - 27 mg/dL CREATININE 0.96 0.70 - 1.20 mg/dL GLUCOSE 118 (H) 65 - 99 mg/dL CALCIUM 7.8 (L) 8.5 - 10.5 mg/dL TOTAL PROTEIN 5.2 (L) 6.0 - 8.0 g/dL ALBUMIN 2.4 (L) 3.2 - 5.3 g/dL ALKALINE PHOSPHATASE 51 39 - 130 U/L AST 35 <=41 U/L ALT 35 <=40 U/L BILIRUBIN,TOTAL 0.6 0.3 - 1.2 mg/dL EGFR Non-Race Dependent 83 >=60 ml/min/1.73sq.m Magnesium Collection Time: 01/22/25 3:55 AM Result Value Ref Range MAGNESIUM 1.8 1.8 - 2.6 mg/dL CBC auto differential Collection Time: 01/22/25 3:55 AM Result Value Ref Range WBC 12.5 (H) 4 - 11 x10E9/L RBC Count 3.49 (L) 4.1 - 5.7 X10E12/L Hemoglobin 11.0 (L) 13 - 17 g/dL Hematocrit 32.7 (L) 39 - 50 % MCV 94 80 - 100 fL MCH 31.5 27 - 34 pg MCHC 33.6 32 - 36 g/dL RDW 14.6 11.5 - 15 % Platelet Count 322 150 - 450 X10E9/L MPV 7.6 7 - 12 fL Metamyelocytes % 3 % Neutrophils % 75 % Lymphocytes % 9 % Monocytes % 7 % Eosinophils % 6 % Neutrophils Absolute (M) 9.3 (H) 1.5 - 6.6 10*3/uL Lymphocytes Absolute 1.1 1.0 - 3.5 10*3/uL Monocytes Absolute 0.9 0.0 - 0.9 10*3/uL Eosinophils Absolute 0.8 (H) 0.0 - 0.4 10*3/uL RBC Morphology Reviewed Differential Type MANUAL DIFFERENTIAL Radiology X-ray chest 1 view Result Date: 01/19/2025 Narrative: CLINICAL HISTORY: Respiratory failure Comparison: 01/17/2025 Views: 1 view FINDINGS: * Left pleural effusion with atelectasis. This may be slightly improved. Otherwise no new infiltrate. Heart size stable. Central line overlies SVC. IMPRESSION: * Gradually improving chest as above. Finalized by Fernando Champagne MD on 01/19/2025 3:34 PM X-ray chest 1 view Result Date: 01/17/2025 Narrative: CLINICAL INFORMATION: Shortness of breath COMPARISON: Chest radiograph dated 01/16/2025. VIEWS: 1. FINDINGS: Interval worsening with large left basilar infiltrate and atelectasis. Probable moderate left pleural effusion. Cardiac and mediastinal shadows are normal. No pneumothorax. No free air below the diaphragm. IMPRESSION: Interval worsening with large left basilar infiltrate and atelectasis. Probable moderate left pleural effusion. Finalized by Ellen Angelo MDon 01/17/2025 12:10 PM X-ray chest 1 view Result Date: 01/16/2025 Narrative: Single view chest History: SOB. Chest pain. Comparison: 01/15/2025 Findings: Single portable view of the chest. Interval extubation. Right-sided PICC line in unchanged position. Cardiac silhouette is stable. New small left- sided pleural effusion with bibasilar atelectasis and mild interstitial edema. Impression: 1. New small left-sided pleural effusion with bibasilar atelectasis. 2. Interval extubation. Finalized by Suhas Arellano MD on 01/16/2025 10:20 AM X-ray chest 1 view Result Date: 01/15/2025 Narrative: XR CHEST 1 VW Clinical Information: resp failure Comparison: 01/14/2025. IMPRESSION: * Unchanged lines and tubes. * Minimal basilar atelectasis, trace left effusion. * Cardiomegaly. Finalized by Jeb Luciano MD on 01/15/2025 7:50 AM X-ray chest 1 view Result Date: 01/14/2025 Narrative: History: PICC line placement Technique: A portable single frontal view of the chest was obtained. Comparison: 01/14/2025 at 106. Findings: There is a PICC line approaching from the right with its tip this. Vena cava. An endotracheal tube is seen with its tip approximate 6.4 cm above the mellisa. An enteric tube is seen with its tip in the stomach however its side port is at the level of the gastroesophageal junction, retracted slightly since the previous examination. Advancement further the stomach is recommended. There is no evidence for active cardiovascular or pulmonary disease. Impression: * Right- sided PICC line has its tip in the superior vena cava * The enteric tube has retracted slightly since the previous examination and its side-port is now at the level the gastroesophageal junction * Endotracheal tube in place with its tip above the mellisa. Finalized by Reynaldo Decker MD on 01/14/2025 8:57 PM X-ray chest 1 view Result Date: 01/14/2025 Narrative: XR CHEST 1 VW History: Postop. Check [...] Marry Villareal MD on 01/14/2025 2:20 PM Echo complete W/O contrast Result Date: 01/14/2025 [...] ultrasound of the kidneys and urinary bladder. [id number] Finalized by Russell Brantley MD on 01/13/2025 [...] into the scrotal sac, consider CT pelvis. Workstation:[id number] by Jeb Luciano MD on 01/13/2025 12:45 [...] Finalized by Jose Luis Asif MD on 1:48 AM X-ray chest 1 view Result Date: [...] on 01/12/2025 6:08 PM DISCHARGE INSTRUCTION Disposition: prison facility Condition: Fair Activity: activity as tolerated Diet: Adult diet Regular Texture; Low Fiber (gastric soft) Adult nutrition supplements Follow up: NO PCP, NO PCP within 7-14 days. Pulmonology, and general surgery 2-4 weeks Labs/Imaging/Pathology: Follow WBC, platelets, creatinine, LFTs, Discharge Medications: Medication List START taking these medications Instructions Last Dose Given Next Dose Due dilTIAZem CD 180 mg 24 hr capsule Commonly known as: CARDIZEM CD Start taking on: January 23, 2025 Take 1 capsule (180 mg total) by mouth in the morning. micafungin 100 mg in sodium chloride 0.9 % 100 mL IVPB W/ADAPTER Infuse 100 mg into a venous catheter daily for 25 days. naloxone 4 mg/actuation spray,non-aerosol nasal spray Commonly known as: NARCAN Administer 1 spray (4 mg total) into alternating nostrils as needed for opioid reversal. oxyCODONE 10 MG tablet immediate release tablet Commonly known as: ROXICODONE Take 1 tablet (10 mg total) by mouth every 4 (four) hours as needed for pain for up to 3 days. Max Daily Amount: 60 mg piperacillin-tazobactam 3.375 g in sodium chloride 0.9 % 50 mL IVPB W/ADAPTER Infuse 3.375 g into a venous catheter every 8 (eight) hours for 20 days. CONTINUE taking these medications Instructions Last Dose Given Next [...] 1 tablet (50 mg total) before bedtime. Where to Get Your Medications You can get these medications from any pharmacy Bring a paper prescription for each of these medications micafungin 100 mg in sodium chloride 0.9 % 100 mL IVPB W/ADAPTER oxyCODONE 10 MG tablet immediate release tablet piperacillin-tazobactam 3.375 g in sodium chloride 0.9 % 50 mL IVPB W/ADAPTER Information about where to get these medications is not yet available Ask your nurse or doctor about these medications dilTIAZem CD 180 mg 24 hr capsule naloxone 4 mg/actuation spray,non-aerosol nasal spray >30 minutes were spent on discharging this patient. PAT Cheng 01/22/2025 11:28 AM [facility] 7AM-7PM (all facilities): [email or web address] or page through [email or web address]. PAT Cheng 01/22/[address] Chyna Sanchez, personally performed a face to face diagnostic evaluation on this patient. I have reviewed the note authored by the advance practice provider including history, review of systems, physical examination, medical decision making and agree with the assessment and plan as written. I have seen and evaluated the patient,I have repeated the wood portions of the physical exam and concur with the CESARIO findings.I have reviewed all laboratory findings and imaging reprts/films.I agree with the plan as noted. documented in this encounter Discharge Instructions * Attachments The following attachments cannot be sent through Care Everywhere. * Abdominal Pain? Adult ED ([place]) documented in this encounter Medications at Time [...] as of this encounter Progress Notes * Gi Raymond RN - 01/22/2025 1:40 PM EDT Telephone report given to receiving facility. * Travis Agrawal MD - 01/22/2025 9:45 AM EDT Images from the original note were not included. Pulmonary Progress Note Patient - Paul Guerrero Age - 74 y.o. - 1950 Date of Admission - 01/14/2025 3:03 PM Consulting Service/Physician Consulting: Consulting Providers Provider Service Specialty Laura Cobian MD -- General Surgery Travis Agrawal MD Z Pulmonology Pulmonary Disease [facility] -- Cardiology Hanane Marie MD -- Urology Primary Care Physician: NO PCP, NO PCP REASON FOR VISIT: resp failure REVIEW OF SYMPTOMS: Events since last visit : no acute overnight events, no chest pain or cough Past Medical History: Past Medical History: Diagnosis Date A-[place] 01/14/2025 admission Acute renal failure (ARF) occured at time of GI bleed Atrial fibrillation ([facility] Bluish skin discoloration CHF (congestive heart failure) [place] 2012 initial EF 15 % // last ECHO 55 % Cholecystitis Contracture of finger joint Patient had an accident on a ladder causing deformity and this eventually developed into a contracture. Patient elected not to have surgery. 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) occured at time of GI bleed Stroke ([facility]) 06/2016 rx with TPA , Past Surgical History: Procedure Laterality Date CARDIAC CATHETERIZATION COLONOSCOPY diverticulosis / lg ingunial hernia CREATION COLOSTOMY Left 01/14/2025 Performed by Delmar Ramirez MD at [facility] ESOPHAGOGASTRODUODENOSCOPY severe errosis gastritis and duodenitis ORCHIECTOMY Left 01/14/2025 Performed by Delmar Ramirez MD at [facility] REPAIR HERNIA INGUINAL Left 01/14/2025 Performed by Delmar Ramirez MD at [facility] TONSILLECTOMY Social History: Social History Socioeconomic History Marital status: Single [...] Resource Strain: Not on file Food Insecurity: Patient Unable To Answer (01/15/2025) Hunger Screening Food Insecurity - Worry: Patient unable to answer Food Insecurity - Inability: Patient unable to answer Transportation Needs: Patient Unable To Answer (01/14/2025) PRAPARE - Transportation Lack of Transportation (Medical): Patient unable to answer Lack of Transportation (Non-Medical): Patient unable to answer Physical Activity: Not on file Stress: Not on file Social Connections: Not on file Interpersonal Safety: Patient Unable To Answer (01/14/2025) Humiliation, Afraid, Rape, and Kick questionnaire Fear of Current or Ex-Partner: Patient unable to answer Emotionally Abused: Patient unable to answer Physically Abused: Patient unable to answer Sexually Abused: Patient unable to answer Housing Instability: Patient Unable To Answer (01/14/2025) Housing Instability Housing Instability: Patient unable to answer SUBJECTIVE VITALS height is 177.8 cm (5' 10 ) and weight is 86.8 kg (191 lb 5.8 oz). His temperature is 36.6 ??C (97.9 ??F). His blood pressure is 126/63 and his pulse is 103. His respiration is 18 and oxygen saturation is 92%. Temperature Range: Temp (24hrs), Av.6 ??C (97.8 ??F), Min:36.3 ??C (97.4 ??F), Max:36.8 ??C (98.2 ??F) BP Range: Systolic (24hrs), Av , Min:108 , Max:126 Pulse Range: Pulse Av.5 Min: 62 Max: 204 Respiration Range: Resp Av Min: 8 Max: 34 Current Pulse Ox: Temp: 36.6 ??C (97.9 ??F) 24HR Pulse Ox Range: Temp Av.7 ??C (98 ??F) Min: 36.1 ??C (97 ??F) Max: 38.2 ??C (100.8 ??F) Oxygen Amount and Delivery: O2 Device: Nasal cannula O2 Flow Rate (L/min): 0.5 L/min Wt Readings from Last 3 Encounters: 01/22/25 86.8 kg (191 lb 5.8 oz) 01/14/25 83.2 kg (183 lb 6.8 oz) 05/19/24 80.5 kg (177 lb 6.4 oz) I/O (24 Hours) Intake/Output Summary (Last 24 hours) at 01/22/2025 0945 Last data filed at 01/21/2025 1527 Gross per 24 hour Intake -- Output 550 ml Net -550 ml Exam General Appearance - awake, alert, 92% on RA at rest HEENT - normocephalic, atraumatic. Neck - Supple, trachea midline Lungs - Fair air entry bilaterally, breath sounds vesicular, no rhonchi, no rales or crackles Cardiovascular - Heart sounds are normal. IRRegular rate and rhythm. Rate 97 Abdomen - soft, nontender, nondistended, no masses or organomegaly Neurologic - There are no focal motor or sensory deficits Skin - no bruising or bleeding Extremities - no cyanosis, clubbing or edema Meds Current Facility-Administered Medications: acetaminophen (TYLENOL EXTRA STRENGTH) tablet 1,000 mg, 1,000 mg, oral, Q6H Sandie TABARES PA, 1,000 mg at 01/22/25 0213 acetaminophen (TYLENOL EXTRA STRENGTH) tablet 500 mg, 500 mg, oral, Q6H PRN, Brenda Millan APRN-DYLAN alum-mag hydroxide-simeth (MAALOX) 200-200-20 mg/5 mL suspension 30 mL, 30 mL, oral, PCHSP, Brenda Millan ELEVATOR RUNNER-PRIVATE EQUITY ANALYST apixaban (ELIQUIS) tablet 5 mg, 5 mg, oral, BID, Santiago Plummer MD, 5 mg at 01/22/25 0837 chlorhexidine (PERIDEX) 0.12 % solution 15 mL, 15 mL, mouth/throat, BID, Travis Agrawal MD, 15 mL at01/21/25 2208 dilTIAZem CD (CARDIZEM CD) 24 hr capsule 180 mg, 180 mg, oral, Daily, Melisa Fuentes APRN-PRIVATE EQUITY ANALYST, 180mg at 01/22/25 0837 HYDROmorphone (PF) (DILAUDID) injection 0.5 mg, 0.5 mg, intravenous, Q3H PRN, JOANA Sanchez levalbuterol (XOPENEX) nebulizer solution 1.25 mg, 1.25 mg, nebulization, Q4H PRN, Travis Agrawal MD, 1.25 mg at 01/20/25 0955 levalbuterol (XOPENEX) nebulizer solution 1.25 mg, 1.25 mg, nebulization, Q4H While awake, Travis Agrawal MD, 1.25 mg at 01/22/25 0751 magnesium sulfate IVPB 2000 mg/50 mL in iso-osmotic water (40 mg/mL premix), 2,000 mg, intravenous,PRN, Brenda Millan APRN-PRIVATE EQUITY ANALYST, Stopped at 01/22/25 0736 magnesium sulfate IVPB 4000 mg/100 mL in iso-osmotic water (40 mg/mL premix), 4,000 mg, intravenous, PRN, Brenda Millan ELEVATOR RUNNER-PRIVATE EQUITY ANALYST melatonin (CIRCADIN) tablet 6 mg, 6 mg, oral, Nightly, Brenda Cummings APRN-DYLAN, 6 mg at 01/21/25 2207 metoprolol (LOPRESSOR) injection 2.5 mg, 2.5 mg, intravenous, Q6H PRN, Alis Weems MD, 2.5 mgat 01/17/25 1020 metoprolol tartrate (LOPRESSOR) tablet 50 mg, 50 mg, oral, BID, Santiago Plummer MD, 50 mg at 01/22/25 0836 micafungin (MYCAMINE) 100 mg in sodium chloride 0.9 % 100 mL IVPB W/ADAPTER, 100 mg, intravenous, Q24H, Karri Aguilera MD, Stopped at 01/21/25 1243 ondansetron (PF) (ZOFRAN) injection 4 mg, 4 mg, intravenous, Q4H PRN, Brenda Millan APRN-DYLAN oxyCODONE (ROXICODONE) immediate release tablet 10 mg, 10 mg, oral, Q4H PRN, JOANA Sanchez oxyCODONE (ROXICODONE) immediate release tablet 5 mg, 5 mg, oral, Q4H PRN, JOANA Sanchez [COMPLETED] piperacillin-tazobactam (ZOSYN) 4.5 g in sodium chloride 0.9 % 50 mL IVPB W/ADAPTER, 4.5 g, intravenous, Once, Stopped at 01/20/25 1055 FOLLOWED BY piperacillin-tazobactam (ZOSYN) 3.375 g in sodium chloride 0.9 % 50 mL IVPB W/ADAPTER, 3.375 g, intravenous, Q8H, Karri Aguilera MD, LastRate: 12.5 mL/hr at 01/22/25 0530, 3.375 g at 01/22/25 0530 potassium chloride (K-TAB,KLOR-CON) CR tablet 30-50 mEq, 30-50 mEq, oral, PRN, 30 mEq at 01/19/25 0357 OR potassium chloride (KAYCIEL) 20 mEq/15 mL solution 30-50 mEq, 30-50 mEq, oral, PRN ORpotassium chloride IVPB 10 mEq/100 mL in water (0.1 mEq/mL premix), 10 mEq, intravenous, PRN, Brenda Millan APRN-DYLAN sennosides-docusate sodium (SENOKOT-S) 8.6-50 mg 1 tablet, 1 tablet, oral, Q12H PRN, PAT Ybarra [COMPLETED] Consult PICC nurse - PICC, , , Once AND sodium chloride 0.9 % flush 10 mL, 10 mL, intravenous, Q12H, 10 mL at 01/22/25 0330 AND sodium chloride 0.9 % flush 10 mL, 10 mL, intravenous, PRN AND sodium chloride 0.9 % flush 20 mL, 20 mL, intravenous, PRN, PAT Ybarra ALLERGIES: No Known Allergies Results from last 3 days Lab Units 01/22/2535401/21/2523801/20/25 1144 01/20/25 0420 BUN mg/dL 24 * -- 26 CREATININE mg/dL 0.96 0.90 -- 0.87 POTASSIUM mmol/L 4.2 4.2 -- 4.1 CO2 mmol/L 31 32 -- 33* CHLORIDE mmol/L 101 98 -- 98 MAGNESIUM mg/dL 1.8 2.0 2.3 1.9 AST U/L 35 49* -- 41 ALT U/L 35 40 -- 32 ALK PHOS U/L 51 52 -- 52 No data from last 3 days. Results from last 3 days Lab Units 01/22/2535401/21/2523801/20/25 0420 WBC x10E9/L 12.5* 15.4* 14.6* HEMOGLOBIN g/dL 11.0* 11.2* 11.4* HEMATOCRIT % 32.7* 33.3* 34.0* PLATELETS X10E9/L 322 339 334 MCV fL 94 94 93 MCH pg 31.5 31.4 31.2 MCHC g/dL 33.6 33.5 33.4 RDW % 14.6 14.6 14.3 MONO ABS MAN 10*3/uL 0.9 0.3 0.6 EOS ABS MAN 10*3/uL 0.8* 0.5* 0.3 Microbiology Results No results found for the last 168 hours. Glucose Results from last 7 days Lab Units 01/22/2535401/21/2523801/20/25 0420 01/19/25 0308 01/18/25 0428 01/17/25 0405 01/16/25 0428 GLUCOSE mg/dL 118* 111* 114* 111* 126* 122* 118* I/O last 3 completed shifts: In: - Out: 1750 [Urine:1250; Stool:500] Microbiology Results No results found for the last 168 hours. Lines/Drains PICC Triple Lumen 01/14/25 Right (Active) Precautions Standard precautions;Hand hygiene;Gloves 01/15/25714 Lumen 1 Vigil 01/15/25714 Lumen 1 Status Blood return noted;Flushed;Saline locked;Alcohol sponge cap changed 01/15/25714 Lumen 1 Needleless Cap Cap changed 01/15/25 0000 Lumen 1 Needleless Cap Change Due 01/19/25 01/15/25 0000 Lumen 2 Red 01/15/25714 Lumen 2 Status Blood return noted;Flushed;Infusing;Connections checked/tightened 01/15/25714 Lumen 2 Needleless Cap Initial cap placed 01/14/252006 Lumen 2 Needleless Cap Change Due 01/18/25 01/14/252006 Lumen 3 White 01/15/25714 Lumen 3 Status Blood return noted;Flushed;Infusing;Connections checked/tightened 01/15/25714 Lumen 3 Needleless Cap Cap changed 01/15/25 0000 Lumen 3 Needleless Cap Change Due 01/19/25 01/15/25 0000 Length bk (cm) 1 cm 01/14/252006 Extremity Circumference (cm) 27 cm 01/14/252006 Site Assessment Clean;Dry;Intact 01/15/25714 Dressing Type Occlusive;Transparent with CHG gel 01/15/25714 Dressing Status Clean;Dry;Intact 01/15/25714 Dressing Intervention Initial dressing 01/14/252006 Line Necessity Peripherally incompatible solution 01/15/25714 Line Necessity Reviewed With PAT Ybarra 01/14/252006 Patient Tolerance of Line Care Tolerated well 01/15/25 0000 Dressing Change Due (Non-Gauze) 01/21/25 01/14/252006 Peripheral IV 01/14/25 Left Antecubital (Active) Line Status Blood return noted;Flushed;Saline locked;Alcohol sponge cap changed 01/15/25714 Site Assessment Clean;Dry;Intact 01/15/25714 Dressing Type Occlusive;Transparent 01/15/25714 Dressing Status Clean;Dry;Intact 01/15/25714 Dressing Intervention Initial dressing 01/15/25714 Dressing Change Due (Non-Gauze) 01/22/25 01/15/25714 Peripheral IV 01/14/25 Right Hand (Active) Line Status Blood return noted;Flushed;Infusing;Connections checked/tightened 01/15/25714 Site Assessment Clean;Dry;Intact 01/15/25714 Dressing Type Occlusive;Transparent 01/15/25714 Dressing Status Clean;Dry;Intact 01/15/25714 Dressing Intervention Initial dressing 01/15/25714 Dressing Change Due (Non-Gauze) 01/22/25 01/15/25714 Closed/Suction Drain 01/14/25 1 Anterior;Left Other (Comment) Bulb (Active) Drain/Tube Status To bulb suction 01/15/25714 Drain Securement Sutured 01/15/25714 Dressing Type Gauze 01/15/25714 Dressing Status Clean;Dry;Intact 01/15/25714 Drainage Appearance Bloody 01/15/25714 Output (mL) 40 mL 01/15/25714 NG/OG Tube 01/14/25 Orogastric Mouth (Active) Placement Verification Gastric content 01/15/25714 Status Suction-low intermittent 01/15/25714 Site Assessment Clean;Dry;Intact 01/15/25714 Secured at (cm) 65 cm 01/15/25714 Securement Method Adhesive tape 01/15/25714 Dressing Status/Interventions Clean;Dry;Intact 01/15/25714 Drainage Appearance Bile 01/15/25714 Feeding? (Yes or No) No 01/15/25714 Colostomy 01/14/25 LLQ (Active) Stomal Appliance 1 piece 01/15/25714 Site Assessment Clean;Intact 01/15/25714 Peristomal Assessment Clean;Intact 01/15/25714 Stool Color Red 01/14/25 1515 Output (mL) 0 mL 01/15/25714 Urinary Catheter 01/14/25 Coude (Active) Catheter Status Patent 01/15/25 0715 Site Assessment Clean;Skin intact 01/15/25 0715 Collection Container Standard drainage bag/container 01/15/25 0715 Securement Method Right 01/15/25 0715 Tamper Evident Seal Intact No 01/15/25 0715 Indication for Continuation Strict I&O in critically ill patient 01/15/25 0715 Urine Color Yellow/straw 01/15/25 0715 Urine Appearance Clear 01/15/25 0715 Output (mL) 110 mL 01/15/25 0715 Bladder Instillation? No 01/15/25 0715 ETT 01/14/25 Cuffed Oral (Active) Secured at (cm) 23 cm 01/15/25 0818 Measured from Gums 01/15/25 0818 Secured Location Center 01/15/25 0818 Secured by Commercial tube campa 01/15/2518 Subglottic Port Yes 01/15/2518 Bite Block Yes 01/15/25 0818 Cuff Pressure (cm H2O) 30 cm H2O 01/15/25 0818 Site Condition Cool;Dry 01/15/25817 Subglottic Secretions Scant;Thin;Clear 01/15/2518 Subglottic Suction Frequency Intermittent suction 01/15/25 0818 Arterial Line 01/14/25 Right Radial (Active) Line Status Infusing;Pulsatile blood flow 01/15/25 07 Line Interventions Leveled;Connections checked and tightened;Pressure bag maintained;Armboard 01/15/25714 Waveform Appropriate 01/15/25 07 Site Assessment Clean;Dry;Intact 01/15/25714 Dressing Type Occlusive;Transparent with CHG gel 01/15/25 07 Dressing Status Clean;Dry;Intact 01/15/25 0715 Dressing Intervention Initial dressing 01/15/25 0715 Color/Movement/Sensation Capillary refill less than 3 sec 01/15/25 0715 Patient Tolerance of Line Care Tolerated well 01/15/25 07 Line Necessity Invasive hemodynamic monitoring 01/15/25714 Line Necessity Reviewed With RN 01/14/251524 Dressing Change Due (Non-Gauze) 01/21/25 01/14/25 1525 X-ray chest 1 view Result Date: 01/19/2025 CLINICAL HISTORY: Respiratory failure Comparison: 01/17/2025 Views: 1 view FINDINGS: * Left pleural effusion with atelectasis. This may be slightly improved. Otherwise no new infiltrate. Heart size stable. Central line overlies SVC. IMPRESSION: * Gradually improving chest as above. Finalized by Fernando Champagne MD on 01/19/2025 3:34 PM Echo complete W/O contrast Result Date: 01/14/2025 Left Ventricle: Left ventricle appears normal in size. There is mild asymmetric increased wall thickness/hypertrophy. Systolic function is normal with an ejection fraction of 55-60%. The quantitativeEF by 2D Mitchell biplane is 61%. No obvious regional wall motion abnormalities. Unable to assess diastolic function due to atrial fibrillation/flutter. Right Ventricle: Right ventricular size appearsnormal. The right ventricular basal diameter is 36.0 [...] is no evidence of mitral valve stenosis. ASSESSMENT / PLAN: Acute hypoxic resp failure Extubated 01/15/25 O2 HFNC - wean as tolerated Hypotension - resolved leukocytosis Post op - 01/14/25 - repair of incarcerated inguinal hernia, colon resection, colostomy, orchiectomy A fib RVR - currently rate controlled Cardizem gtt - stopped 01/18/25 lopressor oral Home O2 evaluation today - no supplemental O2 required Still working on auth for SNF . * Sher Martinez PA-C - 01/22/2025 8:35 AM EDT Images from the original note were not included. [facility] [address] [place] [address] PROGRESS NOTE Paul Jed Yolanda denies any chest pain or shortness of breath. SUBJECTIVE Allergies: No Known Allergies CURRENT MEDICATIONS acetaminophen, 1,000 mg, oral, Q6H RAYSA apixaban, 5 mg, oral, BID chlorhexidine, 15 mL, mouth/throat, BID dilTIAZem CD, 180 mg, oral, Daily levalbuterol, 1.25 mg, nebulization, Q4H While awake melatonin, 6 mg, oral, Nightly metoprolol tartrate, 50 mg, oral, BID micafungin, 100 mg, intravenous, Q24H [COMPLETED] piperacillin-tazobactam (ZOSYN) IV, 4.5 g, intravenous, Once FOLLOWED BY piperacillin-tazobactam (ZOSYN) IV, 3.375 g, intravenous, Q8H [COMPLETED] Consult PICC nurse - PICC, , , Once AND sodium chloride, 10 mL, intravenous, Q12H AND sodium chloride, 10 mL, intravenous, PRN AND sodium chloride, 20 mL, intravenous, PRN CONTINUOUS INFUSIONS Review of Systems: Cardiovascular: No chest pain, dyspnea on exertion, palpitations or loss of consciousness. No cough, hemoptysis, pleuritic pain, or phlebitis. Respiratory: No cough or wheezing, no sputum production, no hematemesis. Neurological: No headache, diplopia, change in muscle strength, numbness or tingling. No change in gait, balance, coordination, mood, affect, memory, mentation, behavior. Hematologic/Lymphatic: No abnormal bruising or bleeding, blood clots or swollen lymph nodes. OBJECTIVE CBC: Results from last 7 days Lab Units 01/22/25 0355 01/21/25 0239 01/20/25 0420 WBC x10E9/L 12.5* 15.4* 14.6* HEMOGLOBIN g/dL 11.0* 11.2* 11.4* HEMATOCRIT % 32.7* 33.3* 34.0* MCV fL 94 94 93 PLATELETS X10E9/L 322 339 334 BMP: Results from last 7 days Lab Units 01/22/25 0355 01/21/25 0239 01/20/25 1144 01/20/25 0420 SODIUM mmol/L 137 139 -- 139 POTASSIUM mmol/L 4.2 4.2 -- 4.1 CHLORIDE mmol/L 101 98 -- 98 CO2 mmol/L 31 32 -- 33* BUN mg/dL 24 29* -- 26 CREATININE mg/dL 0.96 0.90 -- 0.87 CALCIUM mg/dL 7.8* 8.0* -- 8.0* MAGNESIUM mg/dL 1.8 2.0 2.3 1.9 PT/INR: Results from last 7 days Lab Units 01/16/25 1641 PROTIME sec 18.3* INR 1.6* APTT: MAG: Results from last 7 days Lab Units 01/22/25 0355 01/21/25 0239 01/20/25 1144 MAGNESIUM mg/dL 1.8 2.0 2.3 D Dimer: Troponin I ProBNP Lipid Panel: Lab Results Component Value Date CHOL 93 (L) 05/12/2024 TRIG 82 05/12/2024 HDL 40 05/12/2024 HDL 32 12/02/2014 CHOLHDLR 12/02/2014 RISK FEMALE RATIO MALE RATIO 1/2 AVERAGE 3.27 3.43 AVERAGE 4.44 4.97 2X 7.05 9.55 3X 11.04 23.39 Liver Panel: No results found for: TBIL , ALB HgA1C: Lab Results Component Value Date HGBA1C 6.3 (H) 09/04/2012 ABG: CV TESTING HISTORY: ECHO: Echo complete W/O contrast Result Date: 01/14/2025 Left Ventricle: Left ventricle appears normal in size. There is mild asymmetric increased wall thickness/hypertrophy. Systolic function is normal with an ejection fraction of 55-60%. The quantitativeEF by 2D Mitchell biplane is 61%. No obvious regional wall motion abnormalities. Unable to assess diastolic function due to atrial fibrillation/flutter. Right Ventricle: Right ventricular size appearsnormal. The right ventricular basal diameter is 36.0 mm. Normal systolic excursion velocity by TDI (>9.5 cm/s). Tricuspid Valve: There is moderate regurgitation. There is no evidence of tricuspid valve stenosis.There is moderate pulmonary hypertension. Mitral Valve: The leaflets are moderately thickened. There is mild annular calcification. There is moderate regurgitation with a centrally directed jet. There is no evidence of mitral valve stenosis. TELEMETRY: aib PHYSICAL EXAM Admission Weight: Weight: 83.2 kg (183 lb 6.8 oz) I/O last 3 completed shifts: In: - Out: 1750 [Urine:1250; Stool:500] Weight change: 1.1 kg (2 lb 6.8 oz) Wt Readings from Last 3 Encounters: 01/22/25 86.8 kg (191 lb 5.8 oz) 01/14/25 83.2 kg (183 lb 6.8 oz) 05/19/24 80.5 kg (177 lb 6.4 oz) Vitals: Vitals: 01/22/25 0116 01/22/25 0447 01/22/25 0751 01/22/25 0803 BP: 108/64 Pulse: 67 86 94 Resp: 18 18 18 Temp: 36.8 ??C (98.2 ??F) TempSrc: Oral SpO2: 95% (!) 87% 95% Weight: 86.8 kg (191 lb 5.8 oz) Height: Admit Weight Weight: 83.2 kg (183 lb 6.8 oz) Last 3 Weights Last 3 Weight Readings 01/15/25 0500 01/21/25 0500 01/22/25 0447 Weight: 84.8 kg (186 lb 15.2 oz) 85.7 kg (188 lb 15 oz) 86.8 kg (191 lb 5.8 oz) Body mass index is 27.46 kg/m??. INTAKE/OUTPUT I/O last 3 completed shifts: In: - Out: 1750 [Urine:1250; Stool:500] Intake/Output Summary (Last 24 hours) at 01/22/2025 0835 Last data filed at 01/21/2025 1527 Gross per 24 hour Intake -- Output 550 ml Net -550 ml General appearance: Alert oriented and cooperative, In no acute distress Skin: Warm and dry to touch Head: Normocephalic, without obvious abnormality, atraumatic Neck: No JVD, no carotid bruit, neck supple, trachea midline Lungs: Clear to ausculation bilaterally, no use of accessory muscles Heart:: irregularly irregular, no murmurs and no gallops. ASSESSMENT Incarcerated Hernia sp Bowel Perforation with laparotomy Paroxysmal Atrial Fibrillation NICMP with improved LVEF Moderate Valvular Heart Disease Nonobstructive Coronary Artery Disease Mechanical Fall with Rhabdomyolysis Hx of CVA with lytic Therapy ELLY PLAN Cardiology will sign off at this time. Rates remain controlled. Tolerating anticoagulation. SHER MARTINEZ PA-C This note was completed using a voice armature inspector system. Every effort was made to ensure accuracy. However, inadvertent computerized armature inspector errors may be present. Sher Martinez PA-C 01/22/25 0838 Cosigned by Santiago Plummer MD at 01/22/2025 2:08 PM EDT * JOANA Sanchez - 01/22/2025 8:26 AM EDT Images from the original note were not included. IP Day: 8 POD#8 Laparotomy, LIH repair, Left orchiectomy, omentectomy, and Tracy's procedure Subjective: 24 Hour Events: No acute issues overnight. Able to wean O2 to 0.5L. HR remains controlled. Jaimee po, good colostomy outpt. Afebrile on IV abx. Objective: Vitals: 01/22/25 0803 BP: Pulse: 94 Resp: 18 Temp: SpO2: 95% Temp: [36.3 ??C (97.4 ??F)-36.8 ??C (98.2 ??F)] 36.8 ??C (98.2 ??F) Pulse: [67-98] 94 Resp: [18-22] 18 BP: (108-113)/(56-68) 108/64 FiO2 (%): [21 %] 21 % SpO2: [87 %-99 %] 95 % O2 Device: Nasal cannula O2 Flow Rate (L/min): [0 L/min-2 L/min] 0.5 L/min No Known Allergies Intake/Output last 3 shifts: I/O last 3 completed shifts: In: - Out: 1750 [Urine:1250; Stool:500] Intake/Output this shift: No intake/output data recorded. Dietary Orders (From admission, onward) Start Ordered 01/19/25 1402 Adult nutrition supplements Continuous Comments: Ensure Plus High Protein Question Answer Comment Diet Type or Consistency: Regular Texture Select Supplement: Standard House Supplement 8 oz Supplement Frequency: TID 01/19/25 1402 01/19/25 0904 Adult diet Regular Texture; Low Fiber (gastric soft) Diet effective now Question Answer Comment Diet Type: Regular Texture Other Modifiers: Low Fiber (gastric soft) 01/19/25 0903 Physical Exam General Appearance: Awake, Alert & Oriented x3, resting comfortably Pulmonary: SOB with talking, weak cough but clearing secretions better. Better air entry scattered rhonchi Cardiac: irregularly irregular Abdomen: ND, BS+ compressible, incision well approximated, no erythema . good liquid stool in appliance, colostomy appears well perfused. Extremity: mild edema BLE, abrasions to bilateral knees Genitalia. Scrotal edema /induration continues to improve. Blackwell in place Skin: Dry. No rashes. Eyes: Non-icteric Incisions: Clean, dry, and intact. Lines, Drains, Tubes, PICC, Blackwell Laboratory Data: Lab Results Component Value Date WBC 12.5 (H) 01/22/2025 HGB 11.0 (L) 01/22/2025 HCT 32.7 (L) 01/22/2025 MCV 94 01/22/2025 PLT 322 01/22/2025 Lab Results Component Value Date GLU 118 (H) 01/22/2025 CALCIUM 7.8 (L) 01/22/2025 K 4.2 01/22/2025 CO2 31 01/22/2025 CL 101 01/22/2025 BUN 24 01/22/2025 CREATININE 0.96 01/22/2025 No results found for: AMYLASE No results found for: LIPASE Lab Results Component Value Date ALT 35 01/22/2025 AST 35 01/22/2025 ALKPHOS 51 01/22/2025 Lab Results Component Value Date INR 1.6 (H) 01/16/2025 INR 2.1 (H) 01/12/2025 INR 1.1 07/18/2016 PROTIME 18.3 (H) 01/16/2025 PROTIME 24.7 (H) 01/12/2025 PROTIME 12.7 (H) 07/18/2016 acetaminophen, 1,000 mg, oral, Q6H RAYSA apixaban, 5 mg, oral, BID chlorhexidine, 15 mL, mouth/throat, BID dilTIAZem CD, 180 mg, oral, Daily levalbuterol, 1.25 mg, nebulization, Q4H While awake melatonin, 6 mg, oral, Nightly metoprolol tartrate, 50 mg, oral, BID micafungin, 100 mg, intravenous, Q24H [COMPLETED] piperacillin-tazobactam (ZOSYN) IV, 4.5 g, intravenous, Once FOLLOWED BY piperacillin-tazobactam (ZOSYN) IV, 3.375 g, intravenous, Q8H [COMPLETED] Consult PICC nurse - PICC, , , Once AND sodium chloride, 10 mL, intravenous, Q12H AND sodium chloride, 10 mL, intravenous, PRN AND sodium chloride, 20 mL, intravenous, PRN acetaminophen alum-mag hydroxide-simeth HYDROmorphone levalbuterol magnesium sulfate magnesium sulfate metoprolol (LOPRESSOR) IV ondansetron oxyCODONE oxyCODONE potassium chloride OR potassium chloride OR potassium chloride IV (Adult) sennosides-docusate sodium [COMPLETED] Consult PICC nurse - PICC AND sodium chloride AND sodium chloride AND sodium chloride Radiology: No results found. Principal Problem: Acute respiratory failure with hypoxia (CMS-HCC) Active Problems: Paroxysmal atrial fibrillation (CMS-HCC) Cardiomyopathy, nonischemic (CMS-HCC) Atrial fibrillation with rapid ventricular response (CMS-HCC) A-fib (CMS-HCC) ELLY (acute kidney injury) Scrotal swelling Colostomy present (CMS-HCC) Fall Traumatic rhabdomyolysis History of CVA (cerebrovascular accident) Hypotension Septic shock (CMS-HCC) H/O unilateral orchiectomy H/O left inguinal hernia repair S/P partial resection of colon Assessment and Plan: Incarcerated LIH with contained sigmoid perforation. S/p Laparotomy , LIH repair, Omentectomy and Orchiectomy. Tracy's procedure -Asp cx E coli and strep gordonii Edith, bacteroides , BC (-) 5d - ID with abs plan zosyn thru 02/10, Micafungin 02/16 -colostomy with good outpt -jaimee soft gastric diet -enterostomal worked with patient today -Plan to transfer to SNF today, surgically cleared -f/u Dr Ramirez surgical office on 02/02/25 for staple removal , apt made 2. Traumatic blackwell attempt -Urology place 18F coude catheter -good urine outpt, non bloody -f/u urology 3. Acute respiratory failure with hypotension -Off pressor support -I/S, encourage cough, PD to chest with vest -OOB to the chair - aerosols -Pulmonary following. 4 Afib with RVR -Rate controlled on oral medications - On home eliquis -Cardiology following Prophylxis EPC, home AC Pt surgically cleared for transfer to SNF -- JOANA SANCHEZ 01/22/25 8:26 AM JOANA Sanchez 01/22/25 0905 * Sarah Lester, FAITH-[employer]IVATE EQUITY ANALYST - 01/22/2025 8:00 AM EDT OSTOMY NURSE CONSULTATION NOTE Diagnosis: colostomy Surgical Procedure: The ostomy has been present since patient underwent open primary incarcerated left inguinal hernia repair, Sigmoid colectomy with end- colostomy, left orchiectomy, omentectomy on 01/14/25. Surgeon: outside facility Paul is a 74 y.o. male who presents for evaluation colostomy. The colostomy has been present since01/14/25. Patient currently wearing coloplast [id number]. Patient is maintaining a seal. Who was present: pt At yesterday's visit the patient visualized the stoma during an appliance change, reviewed how to open and close the bag, and such things as diet and activity were reviewed. Patient Active Problem List Diagnosis Contracture of finger joint Stroke ([facility]) Paroxysmal atrial fibrillation ([facility]) Bluish skin discoloration Diverticulosis of colon Gastritis and duodenitis GI bleed Mesenteric artery stenosis Cerebral infarction ([facility]) Cardiomyopathy, nonischemic ([facility]) Atrial fibrillation with rapid ventricular response ([facility]) A-fib ([facility]) Acute respiratory failure with hypoxia ([facility] [facility] ELLY (acute kidney injury) Scrotal swelling Colostomy present ([facility]) Fall Traumatic rhabdomyolysis History of CVA (cerebrovascular accident) Hypotension Septic shock ([facility]) H/O unilateral orchiectomy H/O left inguinal hernia repair S/P partial resection of colon Past Medical History: Diagnosis Date A-fib ([facility]) 01/14/2025 admission Acute renal failure (ARF) occured at time of GI bleed Atrial fibrillation [place] Bluish skin discoloration CHF (congestive heart failure) [place] 2012 initial EF 15 % // last ECHO 55 % Cholecystitis Contracture of finger joint Patient had an accident on a ladder causing deformity and this eventually developed into a contracture. Patient elected not to have surgery. 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 / [facility] / Dr Bruce/ CTA Occult blood in stools abn fit test Peptic ulceration GI bleed Pneumonia Respiratory failure [place] occured at time of GI bleed Stroke [place] 06/2016 rx with TPA Past Surgical History: Procedure Laterality Date CARDIAC CATHETERIZATION COLONOSCOPY diverticulosis / lg ingunial hernia CREATION COLOSTOMY Left 01/14/2025 Performed by Delmar Ramirez MD at [facility] ESOPHAGOGASTRODUODENOSCOPY severe errosis gastritis and duodenitis ORCHIECTOMY Left 01/14/2025 Performed by Delmar Ramirez MD at [facility] REPAIR HERNIA INGUINAL Left 01/14/2025 Performed by Delmar Ramirez MD at [facility] TONSILLECTOMY Family History Problem Relation Age of Onset No Known Problems Mother Heart attack Father 40 Heart disease Father Heart disease Sister Heart disease Sister Current Facility-Administered Medications Medication Dose Route Frequency Provider Last Rate Last Admin acetaminophen (TYLENOL EXTRA STRENGTH) tablet 1,000 mg 1,000 mg oral Q6H JOANA Garcia 1,000 mg at 01/22/25 0213 acetaminophen (TYLENOL EXTRA STRENGTH) tablet 500 mg 500 mg oral Q6H PRN PAT Ybarra alum-mag hydroxide-simeth (MAALOX) 200-200-20 mg/5 mL suspension 30 mL 30 mL oral PCHSP PAT Ybarra apixaban (ELIQUIS) tablet 5 mg 5 mg oral BID Santiago Plummer MD 5 mg at 01/22/25 0837 chlorhexidine (PERIDEX) 0.12 % solution 15 mL 15 mL mouth/throat BID Travis Agrawal MD 15 mL at 01/21/25 2208 dilTIAZem CD (CARDIZEM CD) 24 hr capsule 180 mg 180 mg oral Daily Melisa Forrester PAT Fuentes 180 mg at 01/22/25 0837 HYDROmorphone (PF) (DILAUDID) injection 0.5 mg 0.5 mg intravenous Q3H PRN JOANA Sanchez levalbuterol (XOPENEX) nebulizer solution 1.25 mg 1.25 mg nebulization Q4H PRN Travis Agrawal MD 1.25 mg at 01/20/25 0955 levalbuterol (XOPENEX) nebulizer solution 1.25 mg 1.25 mg nebulization Q4H While awake Travis Agrawal MD 1.25 mg at 01/22/25 1144 magnesium sulfate IVPB 2000 mg/50 mL in iso-osmotic water (40 mg/mL premix) 2,000 mg intravenous PRN PAT Ybarra Stopped at 01/22/25 0736 magnesium sulfate IVPB 4000 mg/100 mL in iso-osmotic water (40 mg/mL premix) 4,000 mg intravenous PRN PAT Ybarra melatonin (CIRCADIN) tablet 6 mg 6 mg oral Nightly PAT Collier 6 mg at 01/21/25 2207 metoprolol (LOPRESSOR) injection 2.5 mg 2.5 mg intravenous Q6H PRN Alis Weems MD 2.5 mg at 01/17/25 1020 metoprolol tartrate (LOPRESSOR) tablet 50 mg 50 mg oral BID Santiago Plummer MD 50 mg at 836 micafungin (MYCAMINE) 100 mg in sodium chloride 0.9 % 100 mL IVPB W/ADAPTER 100 mg intravenous [id number] Aguilera MD 100 mL/hr at 01/22/25 1140 100 mg at 01/22/25 1140 ondansetron (PF) (ZOFRAN) injection 4 mg 4 mg intravenous Q4H PRN PAT Ybarra oxyCODONE (ROXICODONE) immediate release tablet 10 mg 10 mg oral Q4H PRN JOANA Sanchez oxyCODONE (ROXICODONE) immediate release tablet 5 mg 5 mg oral Q4H PRN JOANA Sanchez piperacillin-tazobactam (ZOSYN) 3.375 g in sodium chloride 0.9 % 50 mL IVPB W/ADAPTER 3.375 g intravenous Q8H Karri Aguilera MD Stopped at 01/22/25 0930 potassium chloride (K-TAB,KLOR-CON) CR tablet 30-50 mEq 30-50 mEq oral PRN Brenda Millan, [employer] 30 mEq at 01/19/25 0357 Or potassium chloride (KAYCIEL) 20 mEq/15 mL solution 30-50 mEq 30-50 mEq oral PRN Brenda Monty, ELEV[employer]QU[employer] ANALYST Or potassium chloride IVPB 10 mEq/100 mL in water (0.1 mEq/mL premix) 10 mEq intravenous PRN Brenda Monty, ELEVATOR [employer]NER-[employer] EQU[employer] ANALYST sennosides-docusate sodium (SENOKOT-S) 8.6-50 mg 1 tablet 1 tablet oral Q12H PRN Brenda Monty, ELEV[employer]QU[employer]NALYST sodium chloride 0.9 % flush 10 mL 10 mL intravenous Q12H Brenda Monty, ELEV[employer]NER- [employer]QU[employer]NALYST 10 mL at 01/22/25 0330 And sodium chloride 0.9 % flush 10 mL 10 mL intravenous PRN Brenda Hartland, ELEV[employer]QU[employer]NALYST And sodium chloride 0.9 % flush 20 mL 20 mL intravenous PRN Brenda Monty, ELEV[employer]NER-[employer] EQU[employer] ANALYST sodium chloride 0.9 % flush 10 mL 10 mL intravenous Q12H Anne Zirker, ELEVATOR [employer]NER-[employer]QU[employer] ANALYST And sodium chloride 0.9 % flush 10 mL 10 mL intravenous PRN Anne Zirker, ELEVATOR [employer]NER-[employer]IVATE EQU[employer] ANALYST And sodium chloride 0.9 % flush 20 mL 20 mL intravenous PRN Anne Zirker, ELEVATOR [employer]NER- [employer]QU[employer] ANALYST 20 mL at 01/22/25 1244 No Known Allergies Social History Tobacco Use Smoking status: Never Smokeless tobacco: Never Substance Use Topics Alcohol use: No The following portions of the patient's history were reviewed and updated as appropriate: allergies, current medications, past family history, past medical history, past social history, past surgicalhistory, problem list, and medication reconciliation was completed including current medication andpost discharge medication. Objective: Vitals: 01/22/25 1144 BP: Pulse: 59 Resp: 18 Temp: SpO2: (!) 88% Physical Exam Constitutional: General: He is not in acute distress. HENT: Head: Normocephalic and atraumatic. Pulmonary: Effort: Pulmonary effort is normal. No respiratory distress. Abdominal: Palpations: Abdomen is soft. Tenderness: There is abdominal tenderness. Skin: General: Skin is warm and dry. Neurological: Mental Status: He is alert and oriented to person, place, and time. Psychiatric: Behavior: Behavior normal. Assessment/Plan: Stoma is well budded and measured 45mm. Peristomal skin is intact. Supplies: Coloplast one piece flat drainable pouch with gas filter (#[id number]) Education: --WNL stoma (color; moistness; protrusion; edema; no sensory nerves; highly vascular, easily bleeds) and peristomal (dry, intact, no rashes or weeping) assessment --pouch open/close/empty lesson demonstrated ( headlights, taillights, bumper, close the trunk ) --pouch should be emptied when no more than 1/3 to 1/2 full with stool or gas --full ostomy pouch change: removing old pouch, cleansing area with water, measuring and cutting new pouch appropriately, use of and application of barrier ring, applying pouch, then finishing by holding hand over pouch seal for 1-2 minutes to warm pouch into place --reviewed that pouch change will typically be every 3-4 days (as a routine/goal). Importance beingon consistent wear time. Some people leave pouch in place for longer. Pouch should immediately be changed with any signs of leaking so as to prevent skin irritation. If patient is having issues/leaks understands to call -- Explained/showed gas filter on pouch. How to protect gas filter with provided sticker when showering, swimming, etc Problem List Items Addressed This Visit S/P partial resection of colon Relevant Medications oxyCODONE (ROXICODONE) 10 MG tablet immediate release tablet Other Visit Diagnoses Encounter for ostomy nurse consultation - Primary Relevant Orders [facility] [place], [place] Colostomy in place ([facility]) Relevant Orders [facility] [place] [place] Perforated diverticulum of large intestine Relevant Orders Creatinine includes GFR, serum Liver panel Platelet count WBC PICC Line Removal Follow up in ostomy clinic at [place] - referral sent [facility] Office: [phone] Email: [email or web address] PAT Vivas 01/22/25 1254 * PAT Vivas - 01/21/2025 2:28 PM EDT OSTOMY NURSE CONSULTATION NOTE Diagnosis: colostomy Surgical Procedure: The ostomy has been present since patient underwent open primary incarcerated left inguinal hernia repair, Sigmoid colectomy with end- colostomy, left orchiectomy, omentectomy on 01/14/25. Surgeon: outside facility Paul is a 74 y.o. male who presents for evaluation colostomy. The colostomy has been present since01/14/25. Patient currently wearing coloplast [id number]. Patient is maintaining a seal. Who was present: pt Patient Active Problem List Diagnosis Contracture of finger joint Stroke ([facility]) Paroxysmal atrial fibrillation ([facility]) Bluish skin discoloration Diverticulosis of colon Gastritis and duodenitis GI bleed Mesenteric artery stenosis Cerebral infarction ([facility]) Cardiomyopathy, nonischemic ([facility]) Atrial fibrillation with rapid ventricular response ([facility] A-fib [place] Acute respiratory failure with hypoxia [place] ELLY (acute kidney injury) Scrotal swelling Colostomy present [place] Fall Traumatic rhabdomyolysis History of CVA (cerebrovascular accident) Hypotension Septic shock ([facility]) H/O unilateral orchiectomy H/O left inguinal hernia repair S/P partial resection of colon Past Medical History: Diagnosis Date A-fib [place] 01/14/2025 admission Acute renal failure (ARF) occured at time of GI bleed Atrial fibrillation ([facility]) Bluish skin discoloration CHF (congestive heart failure) [place] 2012 initial EF 15 % // last ECHO 55 % Cholecystitis Contracture of finger joint Patient had an accident on a ladder causing deformity and this eventually developed into a contracture. Patient elected not to have surgery. CVA (cerebral vascular accident) ([facility]) Diverticulosis of colon Dyspnea Elevated LFTs occured at time of GI bleed Gastritis and duodenitis GI bleed upper bleed Hiatal hernia small Inguinal hernia very larger hernia/ dx when the colonoscopy scope felt in the scrotum Mesenteric artery stenosis no surgery / [facility] / Dr Bruce/ CTA Occult blood in stools abn fit test Peptic ulceration GI bleed Pneumonia Respiratory failure [place] occured at time of GI bleed Stroke [place] 06/2016 rx with TPA Past Surgical History: Procedure Laterality Date CARDIAC CATHETERIZATION COLONOSCOPY diverticulosis / lg ingunial hernia CREATION COLOSTOMY Left 01/14/2025 Performed by Delmar Ramirez MD at [facility] ESOPHAGOGASTRODUODENOSCOPY severe errosis gastritis and duodenitis ORCHIECTOMY Left 01/14/2025 Performed by Delmar Ramirez MD at [facility] REPAIR HERNIA INGUINAL Left 01/14/2025 Performed by Delmar Ramirez MD at [facility] TONSILLECTOMY Family History Problem Relation Age of Onset No Known Problems Mother Heart attack Father 40 Heart disease Father Heart disease Sister Heart disease Sister Current Facility-Administered Medications Medication Dose Route Frequency Provider Last Rate Last Admin acetaminophen (TYLENOL EXTRA STRENGTH) tablet 1,000 mg 1,000 mg oral Q6H JOANA Garcia 1,000 mg at 01/21/25 1145 acetaminophen (TYLENOL EXTRA STRENGTH) tablet 500 mg 500 mg oral Q6H PRN PAT Ybarra alum-mag hydroxide-simeth (MAALOX) 200-200-20 mg/5 mL suspension 30 mL 30 mL oral PCHSP PAT Ybarra apixaban (ELIQUIS) tablet 5 mg 5 mg oral BID Santiago Plummer MD 5 mg at 01/21/25 0801 chlorhexidine (PERIDEX) 0.12 % solution 15 mL 15 mL mouth/throat BID Travis Agrawal MD 15 mL at 01/21/25 1132 dilTIAZem CD (CARDIZEM CD) 24 hr capsule 180 mg 180 mg oral Daily PAT Cheng 180 mg at 01/21/25 0810 HYDROmorphone (PF) (DILAUDID) injection 0.5 mg 0.5 mg intravenous Q3H PRN JOANA Sanchez levalbuterol (XOPENEX) nebulizer solution 1.25 mg 1.25 mg nebulization Q4H PRN Travis Agrawal MD 1.25 mg at 01/20/25 0955 levalbuterol (XOPENEX) nebulizer solution 1.25 mg 1.25 mg nebulization Q4H While awake Travis Agrawal MD 1.25 mg at 01/21/25 1150 magnesium sulfate IVPB 2000 mg/50 mL in iso-osmotic water (40 mg/mL premix) 2,000 mg intravenous PRN PAT Ybarra Stopped at 01/20/25 0738 magnesium sulfate IVPB 4000 mg/100 mL in iso-osmotic water (40 mg/mL premix) 4,000 mg intravenous PRN PAT Ybarra melatonin (CIRCADIN) tablet 6 mg 6 mg oral Nightly PAT Collier 6 mg at 01/20/25 2205 metoprolol (LOPRESSOR) injection 2.5 mg 2.5 mg intravenous Q6H PRN Alis Weems MD 2.5 mg at 01/17/25 1020 metoprolol tartrate (LOPRESSOR) tablet 50 mg 50 mg oral BID Santiago Plummer MD 50 mg at 810 micafungin (MYCAMINE) 100 mg in sodium chloride 0.9 % 100 mL IVPB W/ADAPTER 100 mg intravenous [id number] Roland Aguilera MD Stopped at 01/21/25 1243 ondansetron (PF) (ZOFRAN) injection 4 mg 4 mg intravenous Q4H PRN PAT Ybarra oxyCODONE (ROXICODONE) immediate release tablet 10 mg 10 mg oral Q4H PRN JOANA Sanchez oxyCODONE (ROXICODONE) immediate release tablet 5 mg 5 mg oral Q4H PRN JOANA Sanchez piperacillin-tazobactam (ZOSYN) 3.375 g in sodium chloride 0.9 % 50 mL IVPB W/ADAPTER 3.375 g intravenous Q8H Karri Aguilera MD Stopped at 01/21/25 0938 potassium chloride (K-TAB,KLOR-CON) CR tablet 30-50 mEq 30-50 mEq oral PRN Brenda Monty, [employer]NALY[employer] 30 mEq at 01/19/25 0357 Or potassium chloride (KAYCIEL) 20 mEq/15 mL solution 30-50 mEq 30-50 mEq oral PRN Brenda Monty, ELEV[employer]NER-[employer]QU[employer] ANALYST Or potassium chloride IVPB 10 mEq/100 mL in water (0.1 mEq/mL premix) 10 mEq intravenous PRN Brenda Monty, ELEV[employer]NER-[employer] EQU[employer] ANALYST sennosides-docusate sodium (SENOKOT-S) 8.6-50 mg 1 tablet 1 tablet oral Q12H PRN Brenda Monty, ELEV[employer]NER-[employer] EQU[employer] ANALYST sodium chloride 0.9 % flush 10 mL 10 mL intravenous Q12H Brenda Hartland, ELEVATOR [employer]NER- [employer]QU[employer] ANALYST 10 mL at 01/21/25 0330 And sodium chloride 0.9 % flush 10 mL 10 mL intravenous PRN Brenda Hartland, ELEVATOR [employer]NER-[employer]IVATE EQU[employer] ANALYST And sodium chloride 0.9 % flush 20 mL 20 mL intravenous PRN Brenda Monty, ELEVATOR [employer]NER-[employer]QU[employer] ANALYST No Known Allergies Social History Tobacco Use Smoking status: Never Smokeless tobacco: Never Substance Use Topics Alcohol use: No The following portions of the patient's history were reviewed and updated as appropriate: allergies, current medications, past family history, past medical history, past social history, past surgicalhistory, problem list, and medication reconciliation was completed including current medication andpost discharge medication. Review of Systems Objective: Vitals: 01/21/25 1311 BP: 113/68 Pulse: 90 Resp: 18 Temp: 36.3 ??C (97.4 ??F) SpO2: 95% Physical Exam Ostomy/Skin: Wound 01/14/25 Incision Groin Left (Active) Site Assessment Unable to assess 01/21/25 08 Isela-wound Assessment Clean;Dry;Intact 01/18/25 1655 Closure [place] 01/18/25 165 Drainage Amount None 01/18/25 165 Treatments Site care 01/18/25 165 Dressing Type Abdominal dressing 01/21/25 08 Dressing Changed Changed 01/17/25 0900 Dressing Status Dry;Intact 01/20/25 194 Wound 01/14/25 Incision Abdomen N/A (Active) Site Assessment Unable to assess 01/21/25 0800 Isela-wound Assessment Clean;Dry;Intact 01/19/25 1240 Closure Amanda 01/21/25 08 Drainage Description Serosanguineous 01/20/251944 Drainage Amount Scant 01/20/251944 Dressing Type Gauze 01/21/25 0800 Dressing Changed Changed 01/20/25 194 Dressing Status Clean;Dry;Intact 01/19/251999 State of Healing Closed wound edges 01/20/251944 Wound 01/14/25 Incision Abdomen Left (Active) Site Assessment Unable to assess 01/21/25 08 Isela-wound Assessment Clean;Dry;Intact 01/19/25 1240 Closure [place] 01/19/25 124 Drainage Description Sanguineous 01/18/251654 Drainage Amount None 01/19/25 124 Dressing Type Gauze 01/21/25 08 Dressing Changed Changed 01/18/25 165 Dressing Status Clean;Intact;Dry 01/19/251999 Ostomy related history: Assessment/Plan: Completed pouch change today while patient observed. Support given. Supplies: Coloplast one piece flat drainable pouch with gas filter (#[id number]) Education: --WNL stoma (color; moistness; protrusion; edema; no sensory nerves; highly vascular, easily bleeds) and peristomal (dry, intact, no rashes or weeping) assessment --pouch should be emptied when no more than 1/3 to 1/2 full with stool or gas --full ostomy pouch change: removing old pouch, cleansing area with water, measuring and cutting new pouch appropriately, use of and application of barrier ring, applying pouch, then finishing by holding hand over pouch seal for 1-2 minutes to warm pouch into place --reviewed that pouch change will typically be every 3-4 days (as a routine/goal). Importance beingon consistent wear time. Some people leave pouch in place for longer. Pouch should immediately be changed with any signs of leaking so as to prevent skin irritation. If patient is having issues/leaks understands to call -- Explained/showed gas filter on pouch. How to protect gas filter with provided sticker when showering, swimming, etc Problem List Items Addressed This Visit None Visit Diagnoses Encounter for ostomy nurse consultation - Primary Relevant Orders [facility] [place], [place] Colostomy in place ([facility]) Relevant Orders [facility] [place] [place] Perforated diverticulum of large intestine Relevant Orders Creatinine includes GFR, serum Liver panel Platelet count WBC PICC Line Removal Follow up will follow up with final lesson in am [facility] Wound [facility] Office: [phone] Email: [email or web address] Total time spent with patient= 35 minutes PAT Vivas 01/21/25 1435 PAT Vivas 01/21/25 1436 * PAT Blanton - 01/21/2025 1:26 PM EDT [facility] - Daily Progress Note Estelaeri Paul Erlin Admission date/time 01/14/2025 3:03 PM Today's Date and Time: 01/21/2025, 1:26 PM Impression/diagnosis: Incarcerated left inguinal hernia with contained Sigmoid perforation Polymicrobial abdominal infection Devitalized omentum/left testicle Acute respiratory failure Leukocytosis Acute kidney injury Traumatic Blackwell insertion Traumatic rhabdomyolysis Recommendations/results: X-ray chest: 01/19/2025 IMPRESSION: * Gradually improving chest as above. X-ray chest: 01/17/2025 IMPRESSION: Interval worsening with large left basilar infiltrate and atelectasis. Probable moderate left pleural effusion. January 14, 2025 S/P Open primary incarcerated left inguinal hernia repair, Sigmoid colectomy with end colostomy, Left orchectomy, Omentectomy Abdominal cultures January 14, 2025 positive for E coli, strep gordonii, Bacteroides, Edith utilis Blood cultures January 14, 2025 finalized negative Continue Zosyn until February 10, 2025 Continue micafungin until February 16, 2025 Triple-lumen PICC currently in place right upper extremity Follow WBC, platelets, creatinine, LFTs, Lab Results Component Value Date WBC 15.4 (H) 01/21/2025 PLT 339 01/21/2025 CREATININE 0.90 01/21/2025 ALKPHOS 52 01/21/2025 AST 49 (H) 01/21/2025 ALT 40 01/21/2025 CKTOTAL 61 01/17/2025 Monitor temperatures: Currently afebrile Discharge planning as per primary team depending on patient's clinical condition Supportive care FOLLOW UP/chief complaints Abdominal infection Interval History: Patient is awake, alert, resting in bed, he denies any nausea, no skin rash, reports pain tolerable, continues on antibiotic and antifungal ROS: Negative unless mentioned otherwise above Social History: Social History Socioeconomic History Marital status: Single [...] Resource Strain: Not on file Food Insecurity: Patient Unable To Answer (01/15/2025) Hunger Screening Food Insecurity - Worry: Patient unable to answer Food Insecurity - Inability: Patient unable to answer Transportation Needs: Patient Unable To Answer (01/14/2025) PRAPARE - Transportation Lack of Transportation (Medical): Patient unable to answer Lack of Transportation (Non-Medical): Patient unable to answer Physical Activity: Not on file Stress: Not on file Social Connections: Not on file Interpersonal Safety: Patient Unable To Answer (01/14/2025) Humiliation, Afraid, Rape, and Kick questionnaire Fear of Current or Ex-Partner: Patient unable to answer Emotionally Abused: Patient unable to answer Physically Abused: Patient unable to answer Sexually Abused: Patient unable to answer Housing Instability: Patient Unable To Answer (01/14/2025) Housing Instability Housing Instability: Patient unable to answer Family History: Family History Problem Relation Age of Onset No Known Problems Mother Heart attack Father 40 Heart disease Father Heart disease Sister Heart disease Sister Physical Examination : Vitals: 01/21/25 0843 01/21/25 1150 01/21/25 1202 01/21/25 1311 BP: 113/68 Pulse: 98 70 74 90 Resp: 18 20 22 18 Temp: 36.3 ??C (97.4 ??F) TempSrc: Oral SpO2: 96% 90% 96% 95% Weight: Height: Temperature Range: Temp: 36.3 ??C (97.4 ??F) Temp Av.6 ??C (97.9 ??F) Min: 36.3 ??C (97.4 ??F)Max: 36.7 ??C (98.1 ??F) CONSTITUTIONAL: awake, alert, cooperative, no apparent distress HENT: Normocephalic and atraumatic EYES: Pupils are equal and round LUNGS: No increased work of breathing, no accessory muscle use, no rhonchi or wheezing CARDIOVASCULAR: regular rate and rhythm ABDOMEN: Colostomy in place left lower quadrant MUSCULOSKELETAL:both upper and lower extremities with no redness, warmth, or swelling NEUROLOGIC: Awake, alert, oriented to name, place and time. Follow commands. SKIN: no rash Psychiatric: Attention, mood, and behavior normal Laboratory data: I have independently reviewed the following labs: Results from last 7 days Lab Units 01/21/25 0239 01/20/25 0420 01/19/25 0308 WBC x10E9/L 15.4* 14.6* 16.7* HEMOGLOBIN g/dL 11.2* 11.4* 11.2* HEMATOCRIT % 33.3* 34.0* 33.2* PLATELETS X10E9/L 339 334 340 Results from last 7 days Lab Units 01/21/25 0239 01/20/25 1144 01/20/25 0420 01/19/25 0828 01/19/25 0308 POTASSIUM mmol/L 4.2 -- 4.1 3.9 3.6 CHLORIDE mmol/L 98 -- 98 -- 99 CO2 mmol/L 32 -- 33* -- 33* BUN mg/dL 29* -- 26 -- 29* CREATININE mg/dL 0.90 -- 0.87 -- 0.94 EGFR (CKD-EPI) NON-RACE DEPENDENT ml/min/1.73sq.m 90 -- >90 -- 86 CALCIUM mg/dL 8.0* -- 8.0* -- 8.0* MAGNESIUM mg/dL 2.0 2.3 1.9 -- 2.0 Results from last 7 days Lab Units 01/21/25 0239 01/20/25 0420 01/19/25 0308 ALK PHOS U/L 52 52 48 ALT U/L 40 32 28 AST U/L 49* 41 18 No results found for: CRP No results found for: SEDRATE Cultures: Microbiology Results Procedure Component Value Units Date/Time Blood culture #1 [[id number]] Collected: 01/14/25 1328 Specimen: Blood, Venous Updated: 01/19/25 190 CULTURE RESULTS NO GROWTH 5 DAYS Imaging Studies: X-ray chest 1 view Result Date: 01/19/2025 CLINICAL HISTORY: Respiratory failure Comparison: 01/17/2025 Views: 1 view FINDINGS: * Left pleural effusion with atelectasis. This may be slightly improved. Otherwise no new infiltrate. Heart size stable. Central line overlies SVC. IMPRESSION: * Gradually improving chest as above. Finalized by Fernando Champagne MD on 01/19/2025 3:34 PM Medications: acetaminophen, 1,000 mg, oral, Q6H RAYSA apixaban, 5 mg, oral, BID chlorhexidine, 15 mL, mouth/throat, BID dilTIAZem CD, 180 mg, oral, Daily levalbuterol, 1.25 mg, nebulization, Q4H While awake melatonin, 6 mg, oral, Nightly metoprolol tartrate, 50 mg, oral, BID micafungin, 100 mg, intravenous, Q24H [COMPLETED] piperacillin-tazobactam (ZOSYN) IV, 4.5 g, intravenous, Once FOLLOWED BY piperacillin-tazobactam (ZOSYN) IV, 3.375 g, intravenous, Q8H [COMPLETED] Consult PICC nurse - PICC, , , Once AND sodium chloride, 10 mL, intravenous, Q12H AND sodium chloride, 10 mL, intravenous, PRN AND sodium chloride, 20 mL, intravenous, PRN Thank you for allowing us to participate in the care of this patient. Please call with questions. [facility] Anne Alxeander APRN PRIVATE EQUITY ANALYST [phone] This note was completed using a voice armature inspector system. Every effort was made to ensure accuracy. However, inadvertent computerized armature inspector errors may be present. PAT [place]anton 01/21/251921 * Travis Agrawal MD - 01/21/2025 11:30 AM EDT Images from the original note were not included. Pulmonary Progress Note Patient - Paul Guerrero Age - 74 y.o. - 1950 Date of Admission - 01/14/2025 3:03 PM Consulting Service/Physician Consulting: Consulting Providers Provider Service Specialty Laura Cobian MD -- General Surgery Travis Agrawal MD Z Pulmonology Pulmonary Disease [facility] -- Cardiology Hanane Marie MD -- Urology Primary Care Physician: NO PCP, NO PCP REASON FOR VISIT: resp failure REVIEW OF SYMPTOMS: Events since last visit : no acute overnight events, no chest pain or cough Past Medical History: Past Medical History: Diagnosis [place] [place]25 admission Acute renal failure (ARF) occured at time of GI bleed Atrial fibrillation [place] [place] Bluish skin discoloration [place]congestive heart failure) [place] [place] 2012 initial EF 15 % // last ECHO 55 % Cholecystitis Contracture of finger joint Patient had an accident on a ladder causing deformity and this eventually developed into a contracture. Patient elected not to have surgery. 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 / [facility] / Dr Bruce/ CTA Occult blood in stools abn fit test Peptic ulceration GI bleed Pneumonia Respiratory failure [place] [place] occured at time of GI bleed Stroke [place] [place] 06/2016 rx with TPA , Past Surgical History: Procedure Laterality Date CARDIAC CATHETERIZATION COLONOSCOPY diverticulosis / lg ingunial hernia CREATION COLOSTOMY Left 01/14/2025 Performed by Delmar Ramirez MD at [facility] ESOPHAGOGASTRODUODENOSCOPY severe errosis gastritis and duodenitis ORCHIECTOMY Left 01/14/2025 Performed by Delmar Ramirez MD at [facility] REPAIR HERNIA INGUINAL Left 01/14/2025 Performed by Delmar Ramirez MD at [facility] TONSILLECTOMY Social History: Social History Socioeconomic History Marital status: Single [...] Resource Strain: Not on file Food Insecurity: Patient Unable To Answer (01/15/2025) Hunger Screening Food Insecurity - Worry: Patient unable to answer Food Insecurity - Inability: Patient unable to answer Transportation Needs: Patient Unable To Answer (01/14/2025) PRAPARE - Transportation Lack of Transportation (Medical): Patient unable to answer Lack of Transportation (Non-Medical): Patient unable to answer Physical Activity: Not on file Stress: Not on file Social Connections: Not on file Interpersonal Safety: Patient Unable To Answer (01/14/2025) Humiliation, Afraid, Rape, and Kick questionnaire Fear of Current or Ex-Partner: Patient unable to answer Emotionally Abused: Patient unable to answer Physically Abused: Patient unable to answer Sexually Abused: Patient unable to answer Housing Instability: Patient Unable To Answer (01/14/2025) Housing Instability Housing Instability: Patient unable to answer SUBJECTIVE VITALS height is 177.8 cm (5' 10 ) and weight is 85.7 kg (188 lb 15 oz). His oral temperature is 36.7 ??C (98 ??F). His blood pressure is 133/65 and his pulse is 78. His respiration is 16 and oxygen saturation is 92%. Temperature Range: Temp (24hrs), Av.6 ??C (97.9 ??F), Min:36.4 ??C (97.5 ??F), Max:36.7 ??C (98.1 ??F) BP Range: Systolic (24hrs), Av , Min:100 , Max:133 Pulse Range: Pulse Av.2 Min: 62 Max: 204 Respiration Range: Resp Av.2 Min: 8 Max: 34 Current Pulse Ox: Temp: 36.7 ??C (98 ??F) 24HR Pulse Ox Range: Temp Av.7 ??C (98 ??F) Min: 36.1 ??C (97 ??F) Max: 38.2 ??C (100.8 ??F) Oxygen Amount and Delivery: O2 Device: Nasal cannula O2 Flow Rate (L/min): 2 L/min Wt Readings from Last 3 Encounters: 01/21/25 85.7 kg (188 lb 15 oz) 01/14/25 83.2 kg (183 lb 6.8 oz) 05/19/24 80.5 kg (177 lb 6.4 oz) I/O (24 Hours) Intake/Output Summary (Last 24 hours) at 01/21/2025 0826 Last data filed at 01/21/2025 0215 Gross per 24 hour Intake 249.36 ml Output 1300 ml Net -1050.64 ml Exam General Appearance - awake, alert, 92% on RA at rest HEENT - normocephalic, atraumatic. Neck - Supple, trachea midline Lungs - Fair air entry bilaterally, breath sounds vesicular, no rhonchi, no rales or crackles Cardiovascular - Heart sounds are normal. IRRegular rate and rhythm. Rate 97 Abdomen - soft, nontender, nondistended, no masses or organomegaly Neurologic - There are no focal motor or sensory deficits Skin - no bruising or bleeding Extremities - no cyanosis, clubbing or edema Meds Current Facility-Administered Medications: acetaminophen (TYLENOL EXTRA STRENGTH) tablet 1,000 mg, 1,000 mg, oral, Q6H Sandie TABARES PA, 1,000 mg at 01/21/25 0801 acetaminophen (TYLENOL EXTRA STRENGTH) tablet 500 mg, 500 mg, oral, Q6H PRN, Brenda Millan, FAITH-PRIVATE EQUITY ANALYST alum-mag hydroxide-simeth (MAALOX) 200-200-20 mg/5 mL suspension 30 mL, 30 mL, oral, PCYANETP, Brenda Millan ELEVATOR RUNNER-PRIVATE EQUITY ANALYST apixaban (ELIQUIS) tablet 5 mg, 5 mg, oral, BID, Santiago Plummer MD, 5 mg at 01/21/25 0801 chlorhexidine (PERIDEX) 0.12 % solution 15 mL, 15 mL, mouth/throat, BID, Travis Agrawal MD, 15 mL at01/20/25 2107 dilTIAZem CD (CARDIZEM CD) 24 hr capsule 180 mg, 180 mg, oral, Daily, Melisa Fuentes APRN-DYLAN, 180mg at 01/21/25 0810 HYDROmorphone (PF) (DILAUDID) injection 0.5 mg, 0.5 mg, intravenous, Q3H PRN, JOANA Sanchez levalbuterol (XOPENEX) nebulizer solution 1.25 mg, 1.25 mg, nebulization, Q4H PRN, Travis Agrawal MD, 1.25 mg at 01/20/25 0955 levalbuterol (XOPENEX) nebulizer solution 1.25 mg, 1.25 mg, nebulization, Q4H While awake, Travis Agrawal MD, 1.25 mg at 01/20/25 1945 magnesium sulfate IVPB 2000 mg/50 mL in iso-osmotic water (40 mg/mL premix), 2,000 mg, intravenous,PRN, Brenda Millan APRN-DYLAN, Stopped at 01/20/25 0738 magnesium sulfate IVPB 4000 mg/100 mL in iso-osmotic water (40 mg/mL premix), 4,000 mg, intravenous, PRN, Brenda Millan ELEVATOR RUNNER-PRIVATE EQUITY ANALYST melatonin (CIRCADIN) tablet 6 mg, 6 mg, oral, Nightly, Brenda Cummings APRN-PRIVATE EQUITY ANALYST, 6 mg at 01/20/25 2205 metoprolol (LOPRESSOR) injection 2.5 mg, 2.5 mg, intravenous, Q6H PRN, Alis Weems MD, 2.5 mgat 01/17/25 1020 metoprolol tartrate (LOPRESSOR) tablet 50 mg, 50 mg, oral, BID, Santiago Plummer MD, 50 mg at 01/21/25 0810 micafungin (MYCAMINE) 100 mg in sodium chloride 0.9 % 100 mL IVPB W/ADAPTER, 100 mg, intravenous, Q24H, Karri Aguilera MD, Stopped at 01/20/25 1132 ondansetron (PF) (ZOFRAN) injection 4 mg, 4 mg, intravenous, Q4H PRN, PAT Ybarra oxyCODONE (ROXICODONE) immediate release tablet 10 mg, 10 mg, oral, Q4H PRN, JOANA Sanchez oxyCODONE (ROXICODONE) immediate release tablet 5 mg, 5 mg, oral, Q4H PRN, JOANA Sanchez [COMPLETED] piperacillin-tazobactam (ZOSYN) 4.5 g in sodium chloride 0.9 % 50 mL IVPB W/ADAPTER, 4.5 g, intravenous, Once, Stopped at 01/20/25 1055 FOLLOWED BY piperacillin-tazobactam (ZOSYN) 3.375 g in sodium chloride 0.9 % 50 mL IVPB W/ADAPTER, 3.375 g, intravenous, Q8H, Karri Aguilera MD, LastRate: 12.5 mL/hr at 01/21/25 0538, 3.375 g at 01/21/25 0538 potassium chloride (K-TAB,KLOR-CON) CR tablet 30-50 mEq, 30-50 mEq, oral, PRN, 30 mEq at 01/19/25 0357 OR potassium chloride (KAYCIEL) 20 mEq/15 mL solution 30-50 mEq, 30-50 mEq, oral, PRN ORpotassium chloride IVPB 10 mEq/100 mL in water (0.1 mEq/mL premix), 10 mEq, intravenous, PRN, PAT Ybarra sennosides-docusate sodium (SENOKOT-S) 8.6-50 mg 1 tablet, 1 tablet, oral, Q12H PRN, PAT Ybarra [COMPLETED] Consult PICC nurse - PICC, , , Once AND sodium chloride 0.9 % flush 10 mL, 10 mL, intravenous, Q12H, 10 mL at 01/21/25 0330 AND sodium chloride 0.9 % flush 10 mL, 10 mL, intravenous, PRN AND sodium chloride 0.9 % flush 20 mL, 20 mL, intravenous, PRN, Brenda Millan, ELEVATOR RUNNER-PRIVATE EQUITY ANALYST ALLERGIES: No Known Allergies Results from last 3 days Lab Units 01/21/25 0239 01/20/25 1144 01/20/25 0420 01/19/25 0828 01/19/25 0308 01/18/25 1153 BUN mg/dL 29* -- 26 -- 29* -- CREATININE mg/dL 0.90 -- 0.87 -- 0.94 -- POTASSIUM mmol/L 4.2 -- 4.1 3.9 3.6 4.3 CO2 mmol/L 32 -- 33* -- 33* -- CHLORIDE mmol/L 98 -- 98 -- 99 -- MAGNESIUM mg/dL 2.0 2.3 1.9 -- 2.0 2.3 AST U/L 49* -- 41 -- 18 -- ALT U/L 40 -- 32 -- 28 -- ALK PHOS U/L 52 -- 52 -- 48 -- No data from last 3 days. Results from last 3 days Lab Units 01/21/25 0239 01/20/25 0420 01/19/25 0308 WBC x10E9/L 15.4* 14.6* 16.7* HEMOGLOBIN g/dL 11.2* 11.4* 11.2* HEMATOCRIT % 33.3* 34.0* 33.2* PLATELETS X10E9/L 339 334 340 MCV fL 94 93 93 MCH pg 31.4 31.2 31.3 MCHC g/dL 33.5 33.4 33.7 RDW % 14.6 14.3 14.1 MONO ABS MAN 10*3/uL 0.3 0.6 0.7 EOS ABS MAN 10*3/uL 0.5* 0.3 0.2 Microbiology Results Procedure Component Value Units Date/Time Blood culture #1 [[id number]] Collected: 01/14/25 1328 Specimen: Blood, Venous Updated: 01/19/25 1901 CULTURE RESULTS NO GROWTH 5 DAYS Blood culture #2 [[id number]] Collected: 01/14/25 1253 Specimen: Blood, Venous Updated: 01/19/25 1901 CULTURE RESULTS NO GROWTH 5 DAYS Anaerobic culture [[id number]] (Abnormal) Collected: 01/14/25 1012 Specimen: Aspirate from Abdomen Updated: 01/19/25 1001 CULTURE RESULTS Many Bacteroides fragilis Many Bacteroides ovatus/xylanisolvens Aspirate culture includes gram stain [[id number]] (Abnormal) (Susceptibility) Collected: 01/14/25 1012 Specimen: Aspirate from Abdomen Updated: 01/17/25 1134 CULTURE RESULTS Rare Escherichia coli Rare Streptococcus gordonii Rare Edith utilis GRAM STAIN >25 White Blood Cells/LPF 0 Squamous Epithelial Cells/LPF Many Gram negative bacilli Many Gram positive coccobacilli Susceptibility Escherichia coli Not Specified AMP/SULBACTAM <=2.0 Susceptible Ampicillin 8.0 Susceptible Cefazolin (non-urinary) <=1.0 Susceptible Cefazolin (urinary) <=1.0 Susceptible Ceftriaxone <=0.25 Susceptible Ciprofloxacin <=0.06 Susceptible Gentamicin <=1.0 Susceptible Levofloxacin <=0.12 Susceptible PIPERACIL/TAZOBACTAM <=4.0 Susceptible Glucose Results from last 7 days Lab Units 01/21/25 0239 01/20/25 0420 01/19/25 0308 01/18/25 0428 01/17/25 0405 01/16/25 0428 01/15/25 0310 01/14/25 1252 GLUCOSE mg/dL 111* 114* 111* 126* 122* 118* 113* 130* I/O last 3 completed shifts: In: 249.4 [IV Piggyback:249.4] Out: 1305 [Urine:700; Drains:5; Stool:600] Microbiology Results Procedure Component Value Units Date/Time Blood culture #1 [[id number]] Collected: 01/14/25 1328 Specimen: Blood, Venous Updated: 01/19/25 1901 CULTURE RESULTS NO GROWTH 5 DAYS Blood culture #2 [[id number]] Collected: 01/14/25 1253 Specimen: Blood, Venous Updated: 01/19/25 1901 CULTURE RESULTS NO GROWTH 5 DAYS Anaerobic culture [[id number]] (Abnormal) Collected: 01/14/25 1012 Specimen: Aspirate from Abdomen Updated: 01/19/25 1001 CULTURE RESULTS Many Bacteroides fragilis Many Bacteroides ovatus/xylanisolvens Aspirate culture includes gram stain [[id number]] (Abnormal) (Susceptibility) Collected: 01/14/25 1012 Specimen: Aspirate from Abdomen Updated: 01/17/25 1134 CULTURE RESULTS Rare Escherichia coli Rare Streptococcus gordonii Rare Edith utilis GRAM STAIN >25 White Blood Cells/LPF 0 Squamous Epithelial Cells/LPF Many Gram negative bacilli Many Gram positive coccobacilli Susceptibility Escherichia coli Not Specified AMP/SULBACTAM <=2.0 Susceptible Ampicillin 8.0 Susceptible Cefazolin (non-urinary) <=1.0 Susceptible Cefazolin (urinary) <=1.0 Susceptible Ceftriaxone <=0.25 Susceptible Ciprofloxacin <=0.06 Susceptible Gentamicin <=1.0 Susceptible Levofloxacin <=0.12 Susceptible PIPERACIL/TAZOBACTAM <=4.0 Susceptible Lines/Drains PICC Triple Lumen 01/14/25 Right (Active) Precautions Standard precautions;Hand hygiene;Gloves 01/15/25714 Lumen 1 Vigil 01/15/25714 Lumen 1 Status Blood return noted;Flushed;Saline locked;Alcohol sponge cap changed 01/15/25714 Lumen 1 Needleless Cap Cap changed 01/15/25 0000 Lumen 1 Needleless Cap Change Due 01/19/25 01/15/25 0000 Lumen 2 Red 01/15/25714 Lumen 2 Status Blood return noted;Flushed;Infusing;Connections checked/tightened 01/15/25714 Lumen 2 Needleless Cap Initial cap placed 01/14/252006 Lumen 2 Needleless Cap Change Due 01/18/25 01/14/252006 Lumen 3 White 01/15/25714 Lumen 3 Status Blood return noted;Flushed;Infusing;Connections checked/tightened 01/15/25714 Lumen 3 Needleless Cap Cap changed 01/15/25 0000 Lumen 3 Needleless Cap Change Due 01/19/25 01/15/25 0000 Length bk (cm) 1 cm 01/14/252006 Extremity Circumference (cm) 27 cm 01/14/252006 Site Assessment Clean;Dry;Intact 01/15/25714 Dressing Type Occlusive;Transparent with CHG gel 01/15/25714 Dressing Status Clean;Dry;Intact 01/15/25714 Dressing Intervention Initial dressing 01/14/252006 Line Necessity Peripherally incompatible solution 01/15/25714 Line Necessity Reviewed With Brenda Millan APRN-DYLAN 01/14/252006 Patient Tolerance of Line Care Tolerated well 01/15/25 0000 Dressing Change Due (Non-Gauze) 01/21/25 01/14/252006 Peripheral IV 01/14/25 Left Antecubital (Active) Line Status Blood return noted;Flushed;Saline locked;Alcohol sponge cap changed 01/15/25714 Site Assessment Clean;Dry;Intact 01/15/25714 Dressing Type Occlusive;Transparent 01/15/25714 Dressing Status Clean;Dry;Intact 01/15/25714 Dressing Intervention Initial dressing 01/15/25714 Dressing Change Due (Non-Gauze) 01/22/25 01/15/25714 Peripheral IV 01/14/25 Right Hand (Active) Line Status Blood return noted;Flushed;Infusing;Connections checked/tightened 01/15/25714 Site Assessment Clean;Dry;Intact 01/15/25714 Dressing Type Occlusive;Transparent 01/15/25714 Dressing Status Clean;Dry;Intact 01/15/25714 Dressing Intervention Initial dressing 01/15/25714 Dressing Change Due (Non-Gauze) 01/22/25 01/15/25714 Closed/Suction Drain 01/14/25 1 Anterior;Left Other (Comment) Bulb (Active) Drain/Tube Status To bulb suction 01/15/25714 Drain Securement Sutured 01/15/25714 Dressing Type Gauze 01/15/25714 Dressing Status Clean;Dry;Intact 01/15/25714 Drainage Appearance Bloody 01/15/25714 Output (mL) 40 mL 01/15/25714 NG/OG Tube 01/14/25 Orogastric Mouth (Active) Placement Verification Gastric content 01/15/25714 Status Suction-low intermittent 01/15/25714 Site Assessment Clean;Dry;Intact 01/15/25714 Secured at (cm) 65 cm 01/15/25714 Securement Method Adhesive tape 01/15/25714 Dressing Status/Interventions Clean;Dry;Intact 01/15/25714 Drainage Appearance Bile 01/15/25714 Feeding? (Yes or No) No 01/15/25 0715 Colostomy 01/14/25 LLQ (Active) Stomal Appliance 1 piece 01/15/25 0715 Site Assessment Clean;Intact 01/15/25 0715 Peristomal Assessment Clean;Intact 01/15/25 0715 Stool Color Red 01/14/25 1515 Output (mL) 0 mL 01/15/25 0715 Urinary Catheter 01/14/25 Coude (Active) Catheter Status Patent 01/15/25 0715 Site Assessment Clean;Skin intact 01/15/25 0715 Collection Container Standard drainage bag/container 01/15/25 0715 Securement Method Right 01/15/25 0715 Tamper Evident Seal Intact No 01/15/25 0715 Indication for Continuation Strict I&O in critically ill patient 01/15/25 0715 Urine Color Yellow/straw 01/15/25 0715 Urine Appearance Clear 01/15/25 0715 Output (mL) 110 mL 01/15/25 0715 Bladder Instillation? No 01/15/25 0715 ETT 01/14/25 Cuffed Oral (Active) Secured at (cm) 23 cm 01/15/25 0818 Measured from Gums 01/15/25 0818 Secured Location Center 01/15/25 0818 Secured by Commercial tube campa 01/15/25 0818 Subglottic Port Yes 01/15/25 0818 Bite Block Yes 01/15/25 0818 Cuff Pressure (cm H2O) 30 cm H2O 01/15/25 0818 Site Condition Cool;Dry 01/15/25 0818 Subglottic Secretions Scant;Thin;Clear 01/15/25 0818 Subglottic Suction Frequency Intermittent suction 01/15/25 0818 Arterial Line 01/14/25 Right Radial (Active) Line Status Infusing;Pulsatile blood flow 01/15/25 0715 Line Interventions Leveled;Connections checked and tightened;Pressure bag maintained;Armboard 01/15/25 0715 Waveform Appropriate 01/15/25 07 Site Assessment Clean;Dry;Intact 01/15/25 0715 Dressing Type Occlusive;Transparent with CHG gel 01/15/25 0715 Dressing Status Clean;Dry;Intact 01/15/25 0715 Dressing Intervention Initial dressing 01/15/25 0715 Color/Movement/Sensation Capillary refill less than 3 sec 01/15/25 0715 Patient Tolerance of Line Care Tolerated well 01/15/25 0715 Line Necessity Invasive hemodynamic monitoring 01/15/25 0715 Line Necessity Reviewed With RN 01/14/25 1525 Dressing Change Due (Non-Gauze) 01/21/25 01/14/25 1525 X-ray chest 1 view Result Date: 01/19/2025 CLINICAL HISTORY: Respiratory failure Comparison: 01/17/2025 Views: 1 view FINDINGS: * Left pleural effusion with atelectasis. This may be slightly improved. Otherwise no new infiltrate. Heart size stable. Central line overlies SVC. IMPRESSION: * Gradually improving chest as above. Finalized by Fernando Champagne MD on 01/19/2025 3:34 PM Echo complete W/O contrast Result Date: 01/14/2025 Left Ventricle: Left ventricle appears normal in size. There is mild asymmetric increased wall thickness/hypertrophy. Systolic function is normal with an ejection fraction of 55-60%. The quantitativeEF by 2D Mitchell biplane is 61%. No obvious regional wall motion abnormalities. Unable to assess diastolic function due to atrial fibrillation/flutter. Right Ventricle: Right ventricular size appearsnormal. The right ventricular basal diameter is 36.0 mm. Normal systolic excursion velocity by TDI (>9.5 cm/s). Tricuspid Valve: There is moderate regurgitation. There is no evidence of tricuspid valve stenosis. There is moderate pulmonary hypertension. Mitral Valve: The leaflets are moderately t hickened. There is mild annular calcification. There is moderate regurgitation with a centrally directed jet. There is no evidence of mitral valve stenosis. ASSESSMENT / PLAN: Acute hypoxic resp failure Extubated 01/15/25 O2 HFNC - wean as tolerated Hypotension - resolved leukocytosis Post op - 01/14/25 - repair of incarcerated inguinal hernia, colon resection, colostomy, orchiectomy A fib RVR - currently rate controlled Cardizem gtt - stopped 01/18/25 lopressor oral Home O2 evaluation today - no supplemental O2 required Still working on auth for SNF This is a late note on patient seen earlier today. . * Muriel Darden RCP - 01/21/2025 10:19 AM EDT 01/21/25 0855 Oxygen Therapy O2 Device None (Room air) Patient Reported Home Oxygen Modality Used At Home None (Room air) Home Oxygen Qualification - Resting Method *Complete within 48 Hrs of Discharge SpO2 On Room Air At Rest 92 % Home Oxygen Qualification - Exercise/Ambulation Method SpO2 On Room Air With Exercise/Ambulation 90 % Patient does not qualify for oxygen at rest or with ambulation. * Sher Martinez PA-C - 01/21/2025 9:47 AM EDT Images from the original note were not included. [facility] [address] [place] [address] PROGRESS NOTE Paul Guerrero denies any chest pain or shortness of breath. SUBJECTIVE Allergies: No Known Allergies CURRENT MEDICATIONS acetaminophen, 1,000 mg, oral, Q6H RAYSA apixaban, 5 mg, oral, BID chlorhexidine, 15 mL, mouth/throat, BID dilTIAZem CD, 180 mg, oral, Daily levalbuterol, 1.25 mg, nebulization, Q4H While awake melatonin, 6 mg, oral, Nightly metoprolol tartrate, 50 mg, oral, BID micafungin, 100 mg, intravenous, Q24H [COMPLETED] piperacillin-tazobactam (ZOSYN) IV, 4.5 g, intravenous, Once FOLLOWED BY piperacillin-tazobactam (ZOSYN) IV, 3.375 g, intravenous, Q8H [COMPLETED] Consult PICC nurse - PICC, , , Once AND sodium chloride, 10 mL, intravenous, Q12H AND sodium chloride, 10 mL, intravenous, PRN AND sodium chloride, 20 mL, intravenous, PRN CONTINUOUS INFUSIONS Review of Systems: Cardiovascular: No chest pain, dyspnea on exertion, palpitations or loss of consciousness. No cough, hemoptysis, pleuritic pain, or phlebitis. Respiratory: No cough or wheezing, no sputum production, no hematemesis. Neurological: No headache, diplopia, change in muscle strength, numbness or tingling. No change in gait, balance, coordination, mood, affect, memory, mentation, behavior. Hematologic/Lymphatic: No abnormal bruising or bleeding, blood clots or swollen lymph nodes. OBJECTIVE CBC: Results from last 7 days Lab Units 01/21/25 0239 01/20/25 0420 01/19/25 0308 WBC x10E9/L 15.4* 14.6* 16.7* HEMOGLOBIN g/dL 11.2* 11.4* 11.2* HEMATOCRIT % 33.3* 34.0* 33.2* MCV fL 94 93 93 PLATELETS X10E9/L 339 334 340 BMP: Results from last 7 days Lab Units 01/21/25 0239 01/20/25 1144 01/20/25 0420 01/19/25 0828 01/19/25 0308 SODIUM mmol/L 139 -- 139 -- 139 POTASSIUM mmol/L 4.2 -- 4.1 3.9 3.6 CHLORIDE mmol/L 98 -- 98 -- 99 CO2 mmol/L 32 -- 33* -- 33* BUN mg/dL 29* -- 26 -- 29* CREATININE mg/dL 0.90 -- 0.87 -- 0.94 CALCIUM mg/dL 8.0* -- 8.0* -- 8.0* MAGNESIUM mg/dL 2.0 2.3 1.9 -- 2.0 PT/INR: Results from last 7 days Lab Units 01/16/25 1641 PROTIME sec 18.3* INR 1.6* APTT: MAG: Results from last 7 days Lab Units 01/21/25 0239 01/20/25 1144 01/20/25 0420 MAGNESIUM mg/dL 2.0 2.3 1.9 D Dimer: Troponin I ProBNP Lipid Panel: Lab Results Component Value Date CHOL 93 (L) 05/12/2024 TRIG 82 05/12/2024 HDL 40 05/12/2024 HDL 32 12/02/2014 CHOLHDLR 12/02/2014 RISK FEMALE RATIO MALE RATIO 1/2 AVERAGE 3.27 3.43 AVERAGE 4.44 4.97 2X 7.05 9.55 3X 11.04 23.39 Liver Panel: No results found for: TBIL , ALB HgA1C: Lab Results Component Value Date HGBA1C 6.3 (H) 09/04/2012 ABG: CV TESTING HISTORY: ECHO: Echo complete W/O contrast Result Date: 01/14/2025 Left Ventricle: Left ventricle appears normal in size. There is mild asymmetric increased wall thickness/hypertrophy. Systolic function is normal with an ejection fraction of 55-60%. The quantitativeEF by 2D Mitchell biplane is 61%. No obvious regional wall motion abnormalities. Unable to assess diastolic function due to atrial fibrillation/flutter. Right Ventricle: Right ventricular size appearsnormal. The right ventricular basal diameter is 36.0 mm. Normal systolic excursion velocity by TDI (>9.5 cm/s). Tricuspid Valve: There is moderate regurgitation. There is no evidence of tricuspid valve stenosis.There is moderate pulmonary hypertension. Mitral Valve: The leaflets are moderately thickened. There is mild annular calcification. There is moderate regurgitation with a centrally directed jet. There is no evidence of mitral valve stenosis. CXR: X-ray chest 1 view Result Date: 01/19/2025 CLINICAL HISTORY: Respiratory failure Comparison: 01/17/2025 Views: 1 view FINDINGS: * Left pleural effusion with atelectasis. This may be slightly improved. Otherwise no new infiltrate. Heart size stable. Central line overlies SVC. IMPRESSION: * Gradually improving chest as above. Finalized by Fernando Champagne MD on 01/19/2025 3:34 PM TELEMETRY: afib PHYSICAL EXAM Admission Weight: Weight: 83.2 kg (183 lb 6.8 oz) I/O last 3 completed shifts: In: 249.4 [IV Piggyback:249.4] Out: 1305 [Urine:700; Drains:5; Stool:600] Weight change: Wt Readings from Last 3 Encounters: 01/21/25 85.7 kg (188 lb 15 oz) 01/14/25 83.2 kg (183 lb 6.8 oz) 05/19/24 80.5 kg (177 lb 6.4 oz) Vitals: Vitals: 01/21/25 0500 01/21/25 0807 01/21/25 0830 01/21/25 0843 BP: 133/65 Pulse: 78 97 98 Resp: 16 18 18 Temp: 36.7 ??C (98 ??F) TempSrc: Oral SpO2: 92% 96% 96% Weight: 85.7 kg (188 lb 15 oz) Height: Admit Weight Weight: 83.2 kg (183 lb 6.8 oz) Last 3 Weights Last 3 Weight Readings 01/14/25 1524 01/15/25 0500 01/21/25 0500 Weight: 83.2 kg (183 lb 6.8 oz) 84.8 kg (186 lb 15.2 oz) 85.7 kg (188 lb 15 oz) Body mass index is 27.11 kg/m??. INTAKE/OUTPUT I/O last 3 completed shifts: In: 249.4 [IV Piggyback:249.4] Out: 1305 [Urine:700; Drains:5; Stool:600] Intake/Output Summary (Last 24 hours) at 01/21/2025 0947 Last data filed at 01/21/2025 0215 Gross per 24 hour Intake 249.36 ml Output 1300 ml Net -1050.64 ml General appearance: Alert oriented and cooperative, In no acute distress Skin: Warm and dry to touch Head: Normocephalic, without obvious abnormality, atraumatic Eyes: Conjunctivae unremarkable, EOM's intact, sclera non icteric Neck: No JVD, no carotid bruit, neck supple, trachea midline Lungs: Clear to ausculation bilaterally, no use of accessory muscles Heart:: irregularly irregular, no murmurs and no gallops. Neurologic: Oriented to time, person and place, affect appropriate, no focal/major motor or sensorydefects noted Psychiatric: Appropriate mood, memory and judgment ASSESSMENT Paroxysmal Atrial Fibrillation NICMP with improved LVEF Moderate Valvular Heart Disease Nonobstructive Coronary Artery Disease Mechanical Fall with Rhabdomyolysis Hx of CVA with lytic therapy Incarcerated Hernia sp bowel perforation with laparotomy PAD ELLY PLAN Rates controlled. On eliquis. No objection to discharge from CV perspective to rehab. SHER MARTINEZ PA-C This note was completed using a voice armature inspector system. Every effort was made to ensure accuracy. However, inadvertent computerized armature inspector errors may be present. Sher Martinez PA-C 01/21/25 0969 Cosigned by Santiago Plummer MD at 01/21/2025 4:12 PM EDT * Myranda Redman - 01/21/2025 9:27 AM EDT Images from the original note were not included. [facility] [address] [place] [address] PROGRESS NOTE Paul Guerrero is sitting comfortably in the chair. Patient reports he is feeling better overall. He continues to report feeling congested and admitsto a productive cough, but overall his shortness of breath has improved. He denies hemoptysis. Admits to orthopnea. Patient denies chest pain, shortness of breath at rest, palpitations, lightheadedness, pre-syncope or syncope, or lower extremity swelling. Patient was not on oxygen when seen and did not appear short of breath. Telemetry shows patient remains in atrial fibrillation, asymptomatic. SUBJECTIVE Allergies: No Known Allergies CURRENT MEDICATIONS acetaminophen, 1,000 mg, oral, Q6H RAYSA apixaban, 5 mg, oral, BID chlorhexidine, 15 mL, mouth/throat, BID dilTIAZem CD, 180 mg, oral, Daily levalbuterol, 1.25 mg, nebulization, Q4H While awake melatonin, 6 mg, oral, Nightly metoprolol tartrate, 50 mg, oral, BID micafungin, 100 mg, intravenous, Q24H [COMPLETED] piperacillin-tazobactam (ZOSYN) IV, 4.5 g, intravenous, Once FOLLOWED BY piperacillin-tazobactam (ZOSYN) IV, 3.375 g, intravenous, Q8H [COMPLETED] Consult PICC nurse - PICC, , , Once AND sodium chloride, 10 mL, intravenous, Q12H AND sodium chloride, 10 mL, intravenous, PRN AND sodium chloride, 20 mL, intravenous, PRN CONTINUOUS INFUSIONS Review of Systems: Cardiovascular: No chest pain, dyspnea on exertion, palpitations or loss of consciousness. No cough, hemoptysis, pleuritic pain, or phlebitis. Respiratory: No cough or wheezing, no sputum production, no hematemesis. Neurological: No headache, diplopia, change in muscle strength, numbness or tingling. No change in gait, balance, coordination, mood, affect, memory, mentation, behavior. Hematologic/Lymphatic: No abnormal bruising or bleeding, blood clots or swollen lymph nodes. OBJECTIVE CBC: Results from last 7 days Lab Units 01/21/25 0239 01/20/25 0420 01/19/25 0308 WBC x10E9/L 15.4* 14.6* 16.7* HEMOGLOBIN g/dL 11.2* 11.4* 11.2* HEMATOCRIT % 33.3* 34.0* 33.2* MCV fL 94 93 93 PLATELETS X10E9/L 339 334 340 BMP: Results from last 7 days Lab Units 01/21/25 0239 01/20/25 1144 01/20/25 0420 01/19/25 0828 01/19/25 0308 SODIUM mmol/L 139 -- 139 -- 139 POTASSIUM mmol/L 4.2 -- 4.1 3.9 3.6 CHLORIDE mmol/L 98 -- 98 -- 99 CO2 mmol/L 32 -- 33* -- 33* BUN mg/dL 29* -- 26 -- 29* CREATININE mg/dL 0.90 -- 0.87 -- 0.94 CALCIUM mg/dL 8.0* -- 8.0* -- 8.0* MAGNESIUM mg/dL 2.0 2.3 1.9 -- 2.0 PT/INR: Results from last 7 days Lab Units 01/16/25 1641 PROTIME sec 18.3* INR 1.6* APTT: MAG: Results from last 7 days Lab Units 01/21/25 0239 01/20/25 1144 01/20/25 0420 MAGNESIUM mg/dL 2.0 2.3 1.9 D Dimer: Troponin I ProBNP Lipid Panel: Lab Results Component Value Date CHOL 93 (L) 05/12/2024 TRIG 82 05/12/2024 HDL 40 05/12/2024 HDL 32 12/02/2014 CHOLHDLR 12/02/2014 RISK FEMALE RATIO MALE RATIO 1/2 AVERAGE 3.27 3.43 AVERAGE 4.44 4.97 2X 7.05 9.55 3X 11.04 23.39 Liver Panel: No results found for: TBIL , ALB HgA1C: Lab Results Component Value Date HGBA1C 6.3 (H) 09/04/2012 ABG: CV TESTING HISTORY: ECHO: Echo complete W/O contrast Result Date: 01/14/2025 Left Ventricle: Left ventricle appears normal in size. There is mild asymmetric increased wall thickness/hypertrophy. Systolic function is normal with an ejection fraction of 55-60%. The quantitativeEF by 2D Mitchell biplane is 61%. No obvious regional wall motion abnormalities. Unable to assess diastolic function due to atrial fibrillation/flutter. Right Ventricle: Right ventricular size appearsnormal. The right ventricular basal diameter is 36.0 mm. Normal systolic excursion velocity by TDI (>9.5 cm/s). Tricuspid Valve: There is moderate regurgitation. There is no evidence of tricuspid valve stenosis. There is moderate pulmonary hypertension. Mitral Valve: The leaflets are moderately t hickened. There is mild annular calcification. There is moderate regurgitation with a centrally directed jet. There is no evidence of mitral valve stenosis. STRESS: No results found. HOLTER: No results found. CARDIAC CATH: No results found. CAROTID: No results found. CXR: X-ray chest 1 view Result Date: 01/19/2025 CLINICAL HISTORY: Respiratory failure Comparison: 01/17/2025 Views: 1 view FINDINGS: * Left pleural effusion with atelectasis. This may be slightly improved. Otherwise no new infiltrate. Heart size stable. Central line overlies SVC. IMPRESSION: * Gradually improving chest as above. Finalized by Fernando Champagne MD on 01/19/2025 3:34 PM X-ray chest 1 view Result Date: 01/17/2025 CLINICAL INFORMATION: Shortness of breath COMPARISON: Chest radiograph dated 01/16/2025. VIEWS: 1. FINDINGS: Interval worsening with large left basilar infiltrate and atelectasis. Probable moderate left pleural effusion. Cardiac and mediastinal shadows are normal. No pneumothorax. No free air below the diaphragm. IMPRESSION: Interval worsening with large left basilar infiltrate and atelectasis. Probable moderate left pleural effusion. Finalized by Ellen Angelo MD on 01/17/2025 12:10 PM X-ray chest 1 view Result Date: 01/16/2025 Single view chest History: SOB. Chest pain. Comparison: 01/15/2025 Findings: Single portable view ofthe chest. Interval extubation. Right-sided PICC line in unchanged position. Cardiac silhouette is stable. New small left-sided pleural effusion with bibasilar atelectasis and mild interstitial edema. Impression: 1. New small left-sided pleural effusion with bibasilar atelectasis. 2. Interval extubation. Finalized by Suhas Arellano MD on 01/16/2025 10:20 AM X-ray chest 1 view Result Date: 01/15/2025 XR CHEST 1 VW Clinical Information: resp failure Comparison: 01/14/2025. IMPRESSION: * Unchanged lines and tubes. * Minimal basilar atelectasis, trace left effusion. * Cardiomegaly. Finalized by Jeb Luciano MD on 01/15/2025 7:50 AM X-ray chest 1 view Result Date: 01/14/2025 History: PICC line placement Technique: A portable single frontal view of the chest was obtained. Comparison: 01/14/2025 at 106. Findings: There is a PICC line approaching from the right with its tip this. Vena cava. An endotracheal tube is seen with its tip approximate 6.4 cm above the mellisa. An enteric tube is seen with its tip in the stomach however its side port is at the level of the gastroesophageal junction, retracted slightly since the previous examination. Advancement further the stomach is recommended. There is no evidence for active cardiovascular or pulmonary disease. Impression: * Right-sided PICC line has its tip in the superior vena cava * The enteric tube has retracted slightly since the previous examination and its side-port is now at the level the gastroesophageal junction * Endotracheal tube in place with its tip above the mellisa. Finalized by Reynaldo Decker MD on 01/14/2025 8:57 PM X-ray chest 1 view Result Date: 01/14/2025 XR CHEST 1 VW History: Postop. Check lines and tubes One view study. Comparison: 01/13/2025 Impression: * Gastric drainage tube has been placed. The side-port is near the EG junction. For more optimalpositioning please advance 5 cm. ET tube is visualized. The tip terminates just above the aortic knob. This is satisfactory in position. No other concerning change. No evidence of aspiration. No pneumothorax. No large effusion. Finalized by Marry Villareal MD on 01/14/2025 2:20 PM X-ray chest 1 view Result Date: [...] Bryon Boucher MD on 01/12/2025 7:21 PM TELEMETRY: Irregularly irregular PHYSICAL EXAM Admission Weight: Weight: 83.2 kg (183 lb 6.8 oz) I/O last 3 completed shifts: In: 249.4 [IV Piggyback:249.4] Out: 1305 [Urine:700; Drains:5; Stool:600] Weight change: Wt Readings from Last 3 Encounters: 01/21/25 85.7 kg (188 lb 15 oz) 01/14/25 83.2 kg (183 lb 6.8 oz) 05/19/24 80.5 kg (177 lb 6.4 oz) Vitals: Vitals: 01/21/25 0500 01/21/25 0807 01/21/25 0830 01/21/25 0843 BP: 133/65 Pulse: 78 97 98 Resp: 16 18 18 Temp: 36.7 ??C (98 ??F) TempSrc: Oral SpO2: 92% 96% 96% Weight: 85.7 kg (188 lb 15 oz) Height: Admit Weight Weight: 83.2 kg (183 lb 6.8 oz) Last 3 Weights Last 3 Weight Readings 01/14/25 1524 01/15/25 0500 01/21/25 0500 Weight: 83.2 kg (183 lb 6.8 oz) 84.8 kg (186 lb 15.2 oz) 85.7 kg (188 lb 15 oz) Body mass index is 27.11 kg/m??. INTAKE/OUTPUT I/O last 3 completed shifts: In: 249.4 [IV Piggyback:249.4] Out: 1305 [Urine:700; Drains:5; Stool:600] Intake/Output Summary (Last 24 hours) at 01/21/2025 0928 Last data filed at 01/21/2025 0215 Gross per 24 hour Intake 249.36 ml Output 1300 ml Net -1050.64 ml General appearance: Alert oriented and cooperative, In no acute distress Skin: Warm and dry to touch Head: Normocephalic, without obvious abnormality, atraumatic Eyes: Conjunctivae unremarkable, EOM's intact, sclera non icteric Neck: No JVD, no carotid bruit, neck supple, trachea midline Lungs: Clear to ausculation bilaterally, no use of accessory muscles Heart:: RRR with normal S1 and S2, no murmurs and no gallops. Abdomen: Soft, non-tender, bowel sounds normal. Extremities: No edema Neurologic: Oriented to time, person and place, affect appropriate, no focal/major motor or sensorydefects noted Psychiatric: Appropriate mood, memory and judgment ASSESSMENT Paroxysmal atrial fibrillation with RVR on home Chaka FIGUEROA with recovered EF 61% TTE 01/14/2025 Mod MR, mod TR Nonobstructive CAD [facility] 2012 Mechanical fall-> rhabdomyolysis Hx CVA s/p lytic therapy Incarcerated hernia/bowel perf s/p laparotomy 01/14/25 PAD Acute kidney injury PLAN Paroxysmal atrial fibrillation - Patient is overall doing well from a cardiovascular standpoint. Symptoms of shortness of breath have improved. - Patient in Afib when seen, asymptomatic - Continue Diltiazem 180 mg PO daily w/ established holding parameters - Continue Metroprolol 50 mg PO BID w/ established holding parameters - Continue Apixaban 5 mg PO BID to prevent thromboembolic events - Continue supportive care for cough with congestion JOANA Langley student This note was completed using a voice armature inspector system. Every effort was made to ensure accuracy. However, inadvertent computerized armature inspector errors may be present. Cosigned by Sher Martinez PA-C at 01/21/2025 9:47 AM EDT Associated attestation - Sher Martinez PA-C - 01/21/2025 9:47 AM EDT Disclaimer: This note is intended for educational purposes only. It does not constitute a patient visit and is not to be used or relied on for treatment, billing, or any other purposes. It has been created solely to enable the student to practice documentation to achieve the expected level of competency in charting and receive feedback regarding same. This note is not a part of the legal medical record. * Chyna Sanchez MD - 01/21/2025 8:00 AM EDT Images from the original note were not included. [facility] [address] [facility] [id number] Hospital Medicine Progress Note Patient: Paul Guerrero Date of : 1950 Room: [facility] PCP: NO PCP, NO PCP Admission date: 01/14/2025 3:03 PM Encounter date: 01/21/25 Hospital Day: 8 SUBJECTIVE Interval History: Status: improved. No overnight events. Patient seen and examined at the bedside No signs of acute distress noted at this time No chest pain or dizziness No nausea or vomiting Hemodynamically stable for discharge Awaiting precert Review of Systems Constitutional: Negative for activity change, appetite change, chills, fatigue, fever and unexpected weight change. HENT: Negative for congestion, dental problem, hearing loss, rhinorrhea, sore throat, trouble swallowing and voice change. Eyes: Negative for visual disturbance. Respiratory: Negative for cough, shortness of breath and wheezing. Cardiovascular: Negative for chest pain, palpitations and leg swelling. Gastrointestinal: Negative for abdominal pain, blood in stool, constipation, diarrhea, nausea and vomiting. Genitourinary: Negative for difficulty urinating, dysuria, enuresis, frequency and hematuria. Musculoskeletal: Negative for arthralgias, joint swelling and myalgias. Skin: Negative for color change, rash and wound. Neurological: Positive for weakness. Negative for dizziness, seizures, syncope, speech difficulty, numbness and headaches. Hematological: Negative for adenopathy. Does not bruise/bleed easily. Psychiatric/Behavioral: Negative for dysphoric mood and sleep disturbance. The patient is not nervous/anxious. All other systems reviewed and are negative. OBJECTIVE BP 113/68 Pulse 90 Temp 36.3 ??C (97.4 ??F) (Oral) Resp 18 Ht 177.8 cm (5' 10 ) Wt 85.7 kg (188 lb 15 oz) SpO2 95% BMI 27.11 kg/m?? Temp: [36.3 ??C (97.4 ??F)-36.7 ??C (98.1 ??F)] 36.3 ??C (97.4 ??F) Pulse: [63-98] 90 Resp: [16-22] 18 BP: (100-133)/(51-68) 113/68 FiO2 (%): [21 %] 21 % SpO2: [90 %-96 %] 95 % O2 Device: None (Room air) O2 Flow Rate (L/min): [0 L/min-2 L/min] 0 L/min Intake/Output Summary (Last 24 hours) at 01/21/2025 1501 Last data filed at 01/21/2025 0215 Gross per 24 hour Intake -- Output 1300 ml Net -1300 ml Physical Exam Vitals and nursing note reviewed. Constitutional: General: He is not in acute distress. Appearance: Normal appearance. He is well-developed. HENT: Head: Normocephalic and atraumatic. Right Ear: External ear normal. Left Ear: External ear normal. Nose: Nose normal. Right Sinus: No maxillary sinus tenderness or frontal sinus tenderness. Left Sinus: No maxillary sinus tenderness or frontal sinus tenderness. Mouth/Throat: Lips: [place]. Mouth: Mucous membranes are moist. Pharynx: Oropharynx is clear. Eyes: General: No scleral icterus. Extraocular Movements: Extraocular movements intact. Pupils: Pupils are equal, round, and reactive to light. Neck: Vascular: No carotid bruit or JVD. Cardiovascular: Rate and Rhythm: Normal rate. Rhythm irregular. Pulses: Radial pulses are 2+ on the right side and 2+ on the left side. Heart sounds: Normal heart sounds, S1 normal and S2 normal. No murmur heard. No friction rub. No gallop. Pulmonary: Effort: Pulmonary effort is normal. Breath sounds: No decreased air movement. Rhonchi present. No decreased breath sounds, wheezing or rales. Abdominal: General: Bowel sounds are normal. Palpations: Abdomen is soft. Tenderness: There is no abdominal tenderness. Comments: Colostomy in place Musculoskeletal: Cervical back: Full passive range of motion without pain. Right lower leg: No edema. Left lower leg: No edema. Skin: General: Skin is warm and dry. Capillary Refill: Capillary refill takes less than 2 seconds. Coloration: Skin is pale. Findings: Bruising present. No erythema, rash or wound. Neurological: Motor: No weakness. Medications Scheduled: acetaminophen, 1,000 mg, oral, Q6H RAYSA apixaban, 5 mg, oral, BID chlorhexidine, 15 mL, mouth/throat, BID dilTIAZem CD, 180 mg, oral, Daily levalbuterol, 1.25 mg, nebulization, Q4H While awake melatonin, 6 mg, oral, Nightly metoprolol tartrate, 50 mg, oral, BID micafungin, 100 mg, intravenous, Q24H [COMPLETED] piperacillin-tazobactam (ZOSYN) IV, 4.5 g, intravenous, Once FOLLOWED BY piperacillin-tazobactam (ZOSYN) IV, 3.375 g, intravenous, Q8H [COMPLETED] Consult PICC nurse - PICC, , , Once AND sodium chloride, 10 mL, intravenous, Q12H AND sodium chloride, 10 mL, intravenous, PRN AND sodium chloride, 20 mL, intravenous, PRN Infusions: As Needed: acetaminophen alum-mag hydroxide-simeth HYDROmorphone levalbuterol magnesium sulfate magnesium sulfate metoprolol (LOPRESSOR) IV ondansetron oxyCODONE oxyCODONE potassium chloride OR potassium chloride OR potassium chloride IV (Adult) sennosides-docusate sodium [COMPLETED] Consult PICC nurse - PICC AND sodium chloride AND sodium chloride AND sodium chloride Allergies: Patient has no known allergies. Code Status: Full Code Labs Recent Results (from the past 24 hours) Comprehensive metabolic panel Collection Time: 01/21/25 2:39 AM Result Value Ref Range SODIUM 139 134 - 146 mmol/L POTASSIUM 4.2 3.5 - 5.0 mmol/L CHLORIDE 98 98 - 109 mmol/L CARBON DIOXIDE 32 22 - 32 mmol/L ANION GAP 9 5 - 15 mmol/L BLOOD UREA NITROGEN 29 (H) 5 - 27 mg/dL CREATININE 0.90 0.70 - 1.20 mg/dL GLUCOSE 111 (H) 65 - 99 mg/dL CALCIUM 8.0 (L) 8.5 - 10.5 mg/dL TOTAL PROTEIN 5.2 (L) 6.0 - 8.0 g/dL ALBUMIN 2.4 (L) 3.2 - 5.3 g/dL ALKALINE PHOSPHATASE 52 39 - 130 U/L AST 49 (H) <=41 U/L ALT 40 <=40 U/L BILIRUBIN,TOTAL 0.8 0.3 - 1.2 mg/dL EGFR Non-Race Dependent 90 >=60 ml/min/1.73sq.m Magnesium Collection Time: 01/21/25 2:39 AM Result Value Ref Range MAGNESIUM 2.0 1.8 - 2.6 mg/dL CBC auto differential Collection Time: 01/21/25 2:39 AM Result Value Ref Range WBC 15.4 (H) 4 - 11 x10E9/L RBC Count 3.55 (L) 4.1 - 5.7 X10E12/L Hemoglobin 11.2 (L) 13 - 17 g/dL Hematocrit 33.3 (L) 39 - 50 % MCV 94 80 - 100 fL MCH 31.4 27 - 34 pg MCHC 33.5 32 - 36 g/dL RDW 14.6 11.5 - 15 % Platelet Count 339 150 - 450 X10E9/L MPV 7.6 7 - 12 fL Bands % 1 % Neutrophils % 89 % Lymphocytes % 5 % Monocytes % 2 % Eosinophils % 3 % Neutrophils Absolute (M) 13.8 (H) 1.5 - 6.6 10*3/uL Lymphocytes Absolute 0.8 (L) 1.0 - 3.5 10*3/uL Monocytes Absolute 0.3 0.0 - 0.9 10*3/uL Eosinophils Absolute 0.5 (H) 0.0 - 0.4 10*3/uL RBC Morphology Normal Differential Type MANUAL DIFFERENTIAL Radiology No results found. HOSPITAL PROBLEM LIST Principal Problem: Acute respiratory failure with hypoxia ([facility]) Active Problems: Paroxysmal atrial fibrillation ([facility]) Cardiomyopathy, nonischemic ([facility]) Atrial fibrillation with rapid ventricular response ([facility]) A-fib ([facility]) ELLY (acute kidney injury) Scrotal swelling Colostomy present ([facility]) Fall Traumatic rhabdomyolysis History of CVA (cerebrovascular accident) Hypotension Septic shock ([facility]) H/O unilateral orchiectomy H/O left inguinal hernia repair S/P partial resection of colon ASSESSMENT & PLAN Acute respiratory failure with hypoxia Hypotension Transferred to [facility] from [place] Pulmonology consulted Extubated 01/15 On room air Off levophed Scrotal swelling Incarcerated hernia Colostomy creation General surgery following OR at [place] 01/[address] James Lanier/Lydia for intraabdominal coverage POD#7 Laparotomy, LIH repair, Left orchiectomy, omentectomy, and Tracy's procedure ID consulted On micafungin and Zosyn Acute kidney injury Traumatic rhabdomyolysis Trend CK/Myoglobin daily Creatinine normalized Traumatic blackwell insertion Urology consulted Dr. Stevenson with Urology was spoke to at [place] intraop Requested no Blackwell insertion attempts until Urology can see patient Blackwell placed with urology 01/14 with urology Paroxysmal atrial fibrillation PO Cardizem 180 q.day with parameters On Eliquis and metoprolol at home Heparin drip discontinued DC planning: SNF. Medically Ready for Discharge: Anticipated Today PAT Cheng 01/21/2025 3:01 PM [facility] Internal Medicine 7AM-7PM & 7PM-7AM: EpicChat or page through On-Call Finder. PAT Cheng 01/21/[address] Chyna Sanchez, personally performed a face to face diagnostic evaluation on this patient. I have reviewed the note authored by the advance practice provider including history, review of systems, physical examination, medical decision making and agree with the assessment and plan as written. I have seen and evaluated the patient,I have repeated the wood portions of the physical exam and concur with the CESARIO findings.I have reviewed all laboratory findings and imaging reprts/films.I agree with the plan as noted. * JOANA Sanchez - 01/21/2025 6:42 AM EDT Images from the original note were not included. IP Day: 7 POD#7 Laparotomy, LIH repair, Left orchiectomy, omentectomy, and Tracy's procedure Subjective: 24 Hour Events: No acute changes overnight. Respiratory status stable on 2L. HR controlled with oral medications. Jaimee po, colostomy functioning well. UOP:700ml Colostomy 600ml Objective: Vitals: 01/20/25 2340 BP: 100/54 Pulse: 63 Resp: 18 Temp: 36.7 ??C (98.1 ??F) SpO2: 96% Temp: [36.4 ??C (97.5 ??F)-36.7 ??C (98.1 ??F)] 36.7 ??C (98.1 ??F) Pulse: [63-107] 63 Resp: [16-20] 18 BP: (100-117)/(50-61) 100/54 FiO2 (%): [28 %] 28 % SpO2: [91 %-96 %] 96 % O2 Device: Nasal cannula O2 Flow Rate (L/min): [2 L/min-2.5 L/min] 2 L/min No Known Allergies Intake/Output last 3 shifts: I/O last 3 completed shifts: In: 249.4 [IV Piggyback:249.4] Out: 630 [Urine:290; Drains:15; Stool:325] Intake/Output this shift: I/O this shift: In: - Out: 1200 [Urine:700; Stool:500] Dietary Orders (From admission, onward) Start Ordered 01/19/25 1402 Adult nutrition supplements Continuous Comments: Ensure Plus High Protein Question Answer Comment Diet Type or Consistency: Regular Texture Select Supplement: Standard House Supplement 8 oz Supplement Frequency: TID 01/19/25 1402 01/19/25 0904 Adult diet Regular Texture; Low Fiber (gastric soft) Diet effective now Question Answer Comment Diet Type: Regular Texture Other Modifiers: Low Fiber (gastric soft) 01/19/25 0903 Physical Exam General Appearance: Awake, Alert & Oriented x3, mild distress Pulmonary: SOB with talking, weak cough but clearing secretions better. Better air entry CTA Cardiac: irregularly irregular Abdomen: ND, BS+ compressible, incision well approximated, no erythema . good liquid stool in appliance, colostomy appears well perfused. Extremity: mild edema BLE, abrasions to bilateral knees Genitalia. Scrotal edema /induration continues to improve. Blackwell in place Skin: Dry. No rashes. Eyes: Non-icteric Incisions: Clean, dry, and intact. Lines, Drains, Tubes, PICC, PIV x 2 , [facility] Laboratory Data: Lab Results Component Value Date WBC 15.4 (H) 01/21/2025 HGB 11.2 (L) 01/21/2025 HCT 33.3 (L) 01/21/2025 MCV 94 01/21/2025 PLT 339 01/21/2025 Lab Results Component Value Date GLU 111 (H) 01/21/2025 CALCIUM 8.0 (L) 01/21/2025 K 4.2 01/21/2025 CO2 32 01/21/2025 CL 98 01/21/2025 BUN 29 (H) 01/21/2025 CREATININE 0.90 01/21/2025 No results found for: AMYLASE No results found for: LIPASE Lab Results Component Value Date ALT 40 01/21/2025 AST 49 (H) 01/21/2025 ALKPHOS 52 01/21/2025 Lab Results Component Value Date INR 1.6 (H) 01/16/2025 INR 2.1 (H) 01/12/2025 INR 1.1 07/18/2016 PROTIME 18.3 (H) 01/16/2025 PROTIME 24.7 (H) 01/12/2025 PROTIME 12.7 (H) 07/18/2016 acetaminophen, 1,000 mg, oral, Q6H RAYSA apixaban, 5 mg, oral, BID chlorhexidine, 15 mL, mouth/throat, BID dilTIAZem CD, 180 mg, oral, Daily levalbuterol, 1.25 mg, nebulization, Q4H While awake melatonin, 6 mg, oral, Nightly metoprolol tartrate, 50 mg, oral, BID micafungin, 100 mg, intravenous, Q24H [COMPLETED] piperacillin-tazobactam (ZOSYN) IV, 4.5 g, intravenous, Once FOLLOWED BY piperacillin-tazobactam (ZOSYN) IV, 3.375 g, intravenous, Q8H [COMPLETED] Consult PICC nurse - PICC, , , Once AND sodium chloride, 10 mL, intravenous, Q12H AND sodium chloride, 10 mL, intravenous, PRN AND sodium chloride, 20 mL, intravenous, PRN acetaminophen alum-mag hydroxide-simeth HYDROmorphone levalbuterol magnesium sulfate magnesium sulfate metoprolol (LOPRESSOR) IV ondansetron oxyCODONE oxyCODONE potassium chloride OR potassium chloride OR potassium chloride IV (Adult) sennosides-docusate sodium [COMPLETED] Consult PICC nurse - PICC AND sodium chloride AND sodium chloride AND sodium chloride Radiology: No results found. Principal Problem: Acute respiratory failure with hypoxia (CMS-HCC) Active Problems: Paroxysmal atrial fibrillation (CMS-HCC) Cardiomyopathy, nonischemic (CMS-HCC) Atrial fibrillation with rapid ventricular response (CMS-HCC) A-fib (CMS-HCC) ELLY (acute kidney injury) Scrotal swelling Colostomy present (CMS-HCC) Fall Traumatic rhabdomyolysis History of CVA (cerebrovascular accident) Hypotension Septic shock (CMS-HCC) H/O unilateral orchiectomy H/O left inguinal hernia repair S/P partial resection of colon Assessment and Plan: ncarcerated LIH with contained sigmoid perforation. S/p Laparotomy , LIH repair, Omentectomy and Orchiectomy. Tracy's procedure - IV abx of Ceftriaxone and Flagyl -Asp cx E coli and strep gordonii Edith , BC (-) 2d - ID with abs plan zosyn thru 02/10, Micafungin 02/16 -colostomy with good outpt -jaimee soft gastric diet -enterostomal worked with patient yesterday -f/u Dr Rmairez surgical office on 02/02/25 for staple removal , apt made 2. Traumatic blackwell attempt -Urology place 18F coude catheter -good urine outpt, non bloody -f/u urology 3. Acute respiratory failure with hypotension -Off pressor support -I/S, encourage cough, PD to chest with vest -OOB to the chair - aerosols -Pulmonary following. 4 Afib with RVR -Rate controlled on oral medications - On home eliquis -Cardiology following Prophylxis EPC Pepcid Pt surgically cleared for transfer to SNF -- JOANA SANCHEZ 01/21/25 6:42 AM JOANA Sanchez 01/21/25 0649 * Travis Agrawal MD - 01/20/2025 1:10 PM EDT Images from the original note were not included. Pulmonary Progress Note Patient - Paul Guerrero Age - 74 y.o. - 1950 Date of Admission - 01/14/2025 3:03 PM Consulting Service/Physician Consulting: Consulting Providers Provider Service Specialty Laura Cobian MD -- General Surgery Travis Agrawal MD Z Pulmonology Pulmonary Disease [facility] -- Cardiology Hanane Marie MD -- Urology Primary Care Physician: NO PCP, NO PCP REASON FOR VISIT: resp failure, REVIEW OF SYMPTOMS: Cough++, unable to expectorate Denies chest pain, SOB Events since last visit : off cardizem gtt; HR increases with activity Past Medical History: Past Medical History: Diagnosis [place] admission Acute renal failure (ARF) occured at time of GI bleed Atrial fibrillation [place] Bluish skin discoloration [place]F [place]congestive heart failure) [place] 2012 initial EF 15 % // last ECHO 55 % Cholecystitis Contracture of finger joint Patient had an accident on a ladder causing deformity and this eventually developed into a contracture. Patient elected not to have surgery. 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 / [facility] / Dr Bruce/ CTA Occult blood in stools abn fit test Peptic ulceration GI bleed Pneumonia Respiratory failure [place] occured at time of GI bleed Stroke [place] 06/2016 rx with TPA , Past Surgical History: Procedure Laterality Date CARDIAC CATHETERIZATION COLONOSCOPY diverticulosis / lg ingunial hernia CREATION COLOSTOMY Left 01/14/2025 Performed by Delmar Ramirez MD at [facility] ESOPHAGOGASTRODUODENOSCOPY severe errosis gastritis and duodenitis ORCHIECTOMY Left 01/14/2025 Performed by Delmar Ramirez MD at [facility] REPAIR HERNIA INGUINAL Left 01/14/2025 Performed by Delmar Ramirez MD at [facility] TONSILLECTOMY Social History: Social History Socioeconomic History Marital status: Single [...] Resource Strain: Not on file Food Insecurity: Patient Unable To Answer (01/15/2025) Hunger Screening Food Insecurity - Worry: Patient unable to answer Food Insecurity - Inability: Patient unable to answer Transportation Needs: Patient Unable To Answer (01/14/2025) PRAPARE - Transportation Lack of Transportation (Medical): Patient unable to answer Lack of Transportation (Non-Medical): Patient unable to answer Physical Activity: Not on file Stress: Not on file Social Connections: Not on file Interpersonal Safety: Patient Unable To Answer (01/14/2025) Humiliation, Afraid, Rape, and Kick questionnaire Fear of Current or Ex-Partner: Patient unable to answer Emotionally Abused: Patient unable to answer Physically Abused: Patient unable to answer Sexually Abused: Patient unable to answer Housing Instability: Patient Unable To Answer (01/14/2025) Housing Instability Housing Instability: Patient unable to answer SUBJECTIVE VITALS height is 177.8 cm (5' 10 ) and weight is 84.8 kg (186 lb 15.2 oz). His oral temperature is 36.4 ??C (97.5 ??F). His blood pressure is 105/61 and his pulse is 80. His respiration is 18 and oxygen saturation is 95%. Temperature Range: Temp (24hrs), Av.4 ??C (97.6 ??F), Min:36.4 ??C (97.5 ??F), Max:36.6 ??C (97.8 ??F) BP Range: Systolic (24hrs), Av , Min:101 , Max:134 Pulse Range: Pulse Av.7 Min: 62 Max: 204 Respiration Range: Resp Av.3 Min: 8 Max: 34 Current Pulse Ox: Temp: 36.4 ??C (97.5 ??F) 24HR Pulse Ox Range: Temp Av.7 ??C (98 ??F) Min: 36.1 ??C (97 ??F) Max: 38.2 ??C (100.8 ??F) Oxygen Amount and Delivery: O2 Device: Nasal cannula O2 Flow Rate (L/min): 2 L/min Wt Readings from Last 3 Encounters: 01/15/25 84.8 kg (186 lb 15.2 oz) 01/14/25 83.2 kg (183 lb 6.8 oz) 05/19/24 80.5 kg (177 lb 6.4 oz) I/O (24 Hours) Intake/Output Summary (Last 24 hours) at 01/20/2025 1310 Last data filed at 01/20/2025 1103 Gross per 24 hour Intake 249.36 ml Output 235 ml Net 14.36 ml Exam General Appearance - awake, alert, 1 l nc HEENT - normocephalic, atraumatic. Neck - Supple, trachea midline Lungs - Fair air entry bilaterally, breath sounds vesicular, no rhonchi, no rales or crackles Cardiovascular - Heart sounds are normal. IRRegular rate and rhythm. Rate 67 Abdomen - soft, nontender, nondistended, no masses or organomegaly Neurologic - There are no focal motor or sensory deficits Skin - no bruising or bleeding Extremities - no cyanosis, clubbing or edema Meds Current Facility-Administered Medications: acetaminophen (TYLENOL EXTRA STRENGTH) tablet 1,000 mg, 1,000 mg, oral, Q6H RAYSA, JOANA Sanchez, 1,000 mg at 01/20/25 1149 acetaminophen (TYLENOL EXTRA STRENGTH) tablet 500 mg, 500 mg, oral, Q6H PRN, Brenda Millan APRN-DYLAN alum-mag hydroxide-simeth (MAALOX) 200-200-20 mg/5 mL suspension 30 mL, 30 mL, oral, [facility], Brenda Millan APRN-[employer]NALY[employer] apixaban (ELIQUIS) tablet 5 mg, 5 mg, oral, BID, Santiago Plummer MD, 5 mg at 01/20/25 0857 chlorhexidine (PERIDEX) 0.12 % solution 15 mL, 15 mL, mouth/throat, BID, Travis Agrawal MD, 15 mL at01/20/25 0858 dilTIAZem CD (CARDIZEM CD) 24 hr capsule 180 mg, 180 mg, oral, Daily, Melisa Fuentes APRN-DYLAN, 180mg at 01/20/25 0857 HYDROmorphone (PF) (DILAUDID) injection 0.5 mg, 0.5 mg, intravenous, Q3H PRN, JOANA Sanchez levalbuterol (XOPENEX) nebulizer solution 1.25 mg, 1.25 mg, nebulization, Q4H PRN, Travis Agrawal MD, 1.25 mg at 01/20/25 0955 levalbuterol (XOPENEX) nebulizer solution 1.25 mg, 1.25 mg, nebulization, Q4H While awake, Travis Agrawal MD magnesium sulfate IVPB 2000 mg/50 mL in iso-osmotic water (40 mg/mL premix), 2,000 mg, intravenous,PRN, Brenda Millan APRN-DYLAN, Stopped at 01/20/25 0738 magnesium sulfate IVPB 4000 mg/100 mL in iso-osmotic water (40 mg/mL premix), 4,000 mg, intravenous, PRN, Brenda Millan APRN-DYLAN melatonin (CIRCADIN) tablet 6 mg, 6 mg, oral, Nightly, PAT Collier, 6 mg at 01/19/25 2152 metoprolol (LOPRESSOR) injection 2.5 mg, 2.5 mg, intravenous, Q6H PRN, Alis Weems MD, 2.5 mgat 01/17/25 1020 metoprolol tartrate (LOPRESSOR) tablet 50 mg, 50 mg, oral, BID, Santiago Plummer MD, 50 mg at 01/20/25 0857 micafungin (MYCAMINE) 100 mg in sodium chloride 0.9 % 100 mL IVPB W/ADAPTER, 100 mg, intravenous, Q24H, Karri Aguilera MD, Stopped at 01/20/25 1132 ondansetron (PF) (ZOFRAN) injection 4 mg, 4 mg, intravenous, Q4H PRN, PAT Ybarra oxyCODONE (ROXICODONE) immediate release tablet 10 mg, 10 mg, oral, Q4H PRN, JOANA Sanchez oxyCODONE (ROXICODONE) immediate release tablet 5 mg, 5 mg, oral, Q4H PRN, JOANA Sanchez [COMPLETED] piperacillin-tazobactam (ZOSYN) 4.5 g in sodium chloride 0.9 % 50 mL IVPB W/ADAPTER, 4.5 g, intravenous, Once, Stopped at 01/20/25 1055 FOLLOWED BY piperacillin-tazobactam (ZOSYN) 3.375 g in sodium chloride 0.9 % 50 mL IVPB W/ADAPTER, 3.375 g, intravenous, Q8H, Karri Aguilera MD potassium chloride (K-TAB,KLOR-CON) CR tablet 30-50 mEq, 30-50 mEq, oral, PRN, 30 mEq at 01/19/25 0357 OR potassium chloride (KAYCIEL) 20 mEq/15 mL solution 30-50 mEq, 30-50 mEq, oral, PRN ORpotassium chloride IVPB 10 mEq/100 mL in water (0.1 mEq/mL premix), 10 mEq, intravenous, PRN, PAT Ybarra sennosides-docusate sodium (SENOKOT-S) 8.6-50 mg 1 tablet, 1 tablet, oral, Q12H PRN, PAT Ybarra [COMPLETED] Consult PICC nurse - PICC, , , Once AND sodium chloride 0.9 % flush 10 mL, 10 mL, intravenous, Q12H, 10 mL at 01/20/25 0330 AND sodium chloride 0.9 % flush 10 mL, 10 mL, intravenous, PRN AND sodium chloride 0.9 % flush 20 mL, 20 mL, intravenous, PRN, PAT Ybarra ALLERGIES: No Known Allergies Results from last 3 days Lab Units 01/20/25 1144 01/20/25 0420 01/19/25 0828 01/19/25 0308 01/18/25 1153 01/18/25 0428 BUN mg/dL -- 26 -- 29* -- 36* CREATININE mg/dL -- 0.87 -- 0.94 -- 0.98 POTASSIUM mmol/L -- 4.1 3.9 3.6 4.3 3.7 CO2 mmol/L -- 33* -- 33* -- 33* CHLORIDE mmol/L -- 98 -- 99 -- 98 MAGNESIUM mg/dL 2.3 1.9 -- 2.0 2.3 1.8 AST U/L -- 41 -- 18 -- 24 ALT U/L -- 32 -- 28 -- 35 ALK PHOS U/L -- 52 -- 48 -- 60 No data from last 3 days. Results from last 3 days Lab Units 01/20/25 0420 01/19/25 0308 01/18/25 0428 WBC x10E9/L 14.6* 16.7* 19.0* HEMOGLOBIN g/dL 11.4* 11.2* 12.0* HEMATOCRIT % 34.0* 33.2* 36.1* PLATELETS X10E9/L 334 340 393 MCV fL 93 93 95 MCH pg 31.2 31.3 31.5 MCHC g/dL 33.4 33.7 33.4 RDW % 14.3 14.1 14.5 MONO ABS MAN 10*3/uL 0.6 0.7 0.7 EOS ABS MAN 10*3/uL 0.3 0.2 -- Microbiology Results Procedure Component Value Units Date/Time Blood culture #1 [[id number]] Collected: 01/14/25 1328 Specimen: Blood, Venous Updated: 01/19/25 1901 CULTURE RESULTS NO GROWTH 5 DAYS Blood culture #2 [[id number]] Collected: 01/14/25 1253 Specimen: Blood, Venous Updated: 01/19/25 1901 CULTURE RESULTS NO GROWTH 5 DAYS Anaerobic culture [[id number]] (Abnormal) Collected: 01/14/25 1012 Specimen: Aspirate from Abdomen Updated: 01/19/25 1001 CULTURE RESULTS Many Bacteroides fragilis Many Bacteroides ovatus/xylanisolvens Aspirate culture includes gram stain [[id number]] (Abnormal) (Susceptibility) Collected: 01/14/25 1012 Specimen: Aspirate from Abdomen Updated: 01/17/25 1134 CULTURE RESULTS Rare Escherichia coli Rare Streptococcus gordonii Rare Edith utilis GRAM STAIN >25 White Blood Cells/LPF 0 Squamous Epithelial Cells/LPF Many Gram negative bacilli Many Gram positive coccobacilli Susceptibility Escherichia coli Not Specified AMP/SULBACTAM <=2.0 Susceptible Ampicillin 8.0 Susceptible Cefazolin (non-urinary) <=1.0 Susceptible Cefazolin (urinary) <=1.0 Susceptible Ceftriaxone <=0.25 Susceptible Ciprofloxacin <=0.06 Susceptible Gentamicin <=1.0 Susceptible Levofloxacin <=0.12 Susceptible PIPERACIL/TAZOBACTAM <=4.0 Susceptible Glucose Results from last 7 days Lab Units 01/20/25 0420 01/19/25 0308 01/18/25 0428 01/17/25 0405 01/16/25 0428 01/15/25 0310 01/14/25 1252 01/14/25 0425 GLUCOSE mg/dL 114* 111* 126* 122* 118* 113* 130* 115* I/O last 3 completed shifts: In: 442 [P.O.:442] Out: 1098 [Urine:758; Drains:40; Stool:300] Microbiology Results Procedure Component Value Units Date/Time Blood culture #1 [[id number]] Collected: 01/14/25 1328 Specimen: Blood, Venous Updated: 01/19/25 190 CULTURE RESULTS NO GROWTH 5 DAYS Blood culture #2 [[id number]] Collected: 01/14/25 1253 Specimen: Blood, Venous Updated: 01/19/25 1901 CULTURE RESULTS NO GROWTH 5 DAYS Anaerobic culture [[id number]] (Abnormal) Collected: 01/14/25 1012 Specimen: Aspirate from Abdomen Updated: 01/19/25 1001 CULTURE RESULTS Many Bacteroides fragilis Many Bacteroides ovatus/xylanisolvens Aspirate culture includes gram stain [[id number]] (Abnormal) (Susceptibility) Collected: 01/14/25 1012 Specimen: Aspirate from Abdomen Updated: 01/17/25 1134 CULTURE RESULTS Rare Escherichia coli Rare Streptococcus gordonii Rare Edith utilis GRAM STAIN >25 White Blood Cells/LPF 0 Squamous Epithelial Cells/LPF Many Gram negative bacilli Many Gram positive coccobacilli Susceptibility Escherichia coli Not Specified AMP/SULBACTAM <=2.0 Susceptible Ampicillin 8.0 Susceptible Cefazolin (non-urinary) <=1.0 Susceptible Cefazolin (urinary) <=1.0 Susceptible Ceftriaxone <=0.25 Susceptible Ciprofloxacin <=0.06 Susceptible Gentamicin <=1.0 Susceptible Levofloxacin <=0.12 Susceptible PIPERACIL/TAZOBACTAM <=4.0 Susceptible Lines/Drains PICC Triple Lumen 01/14/25 Right (Active) Precautions Standard precautions;Hand hygiene;Gloves 01/15/2515 Lumen 1 Vigil 01/15/2515 Lumen 1 Status Blood return noted;Flushed;Saline locked;Alcohol sponge cap changed 01/15/2515 Lumen 1 Needleless Cap Cap changed 01/15/25 0000 Lumen 1 Needleless Cap Change Due 01/19/25 01/15/25 0000 Lumen 2 Red 01/15/2515 Lumen 2 Status Blood return noted;Flushed;Infusing;Connections checked/tightened 01/15/2515 Lumen 2 Needleless Cap Initial cap placed 01/14/25 2007 Lumen 2 Needleless Cap Change Due 01/18/25 01/14/252006 Lumen 3 White 01/15/25714 Lumen 3 Status Blood return noted;Flushed;Infusing;Connections checked/tightened 01/15/25714 Lumen 3 Needleless Cap Cap changed 01/15/25 0000 Lumen 3 Needleless Cap Change Due 01/19/25 01/15/25 0000 Length bk (cm) 1 cm 01/14/252006 Extremity Circumference (cm) 27 cm 01/14/252006 Site Assessment Clean;Dry;Intact 01/15/25714 Dressing Type Occlusive;Transparent with CHG gel 01/15/25714 Dressing Status Clean;Dry;Intact 01/15/25714 Dressing Intervention Initial dressing 01/14/252006 Line Necessity Peripherally incompatible solution 01/15/25714 Line Necessity Reviewed With PAT Ybarra 01/14/252006 Patient Tolerance of Line Care Tolerated well 01/15/25 Dressing Change Due (Non-Gauze) 01/21/25 01/14/252006 Peripheral IV 01/14/25 Left Antecubital (Active) Line Status Blood return noted;Flushed;Saline locked;Alcohol sponge cap changed 01/15/25714 Site Assessment Clean;Dry;Intact 01/15/25714 Dressing Type Occlusive;Transparent 01/15/25714 Dressing Status Clean;Dry;Intact 01/15/25714 Dressing Intervention Initial dressing 01/15/25714 Dressing Change Due (Non-Gauze) 01/22/25 01/15/25714 Peripheral IV 01/14/25 Right Hand (Active) Line Status Blood return noted;Flushed;Infusing;Connections checked/tightened 01/15/25714 Site Assessment Clean;Dry;Intact 01/15/25714 Dressing Type Occlusive;Transparent 01/15/25714 Dressing Status Clean;Dry;Intact 01/15/25714 Dressing Intervention Initial dressing 01/15/25714 Dressing Change Due (Non-Gauze) 01/22/25 01/15/25714 Closed/Suction Drain 01/14/25 1 Anterior;Left Other (Comment) Bulb (Active) Drain/Tube Status To bulb suction 01/15/25714 Drain Securement Sutured 01/15/25714 Dressing Type Gauze 08/22/25 0715 Dressing Status Clean;Dry;Intact 01/15/25 0715 Drainage Appearance Bloody 01/15/25 0715 Output (mL) 40 mL 01/15/25 0715 NG/OG Tube 01/14/25 Orogastric Mouth (Active) Placement Verification Gastric content 01/15/25 0715 Status Suction-low intermittent 01/15/25 0715 Site Assessment Clean;Dry;Intact 01/15/25 0715 Secured at (cm) 65 cm 01/15/25 0715 Securement Method Adhesive tape 01/15/25 0715 Dressing Status/Interventions Clean;Dry;Intact 01/15/25 0715 Drainage Appearance Bile 01/15/25 0715 Feeding? (Yes or No) No 01/15/25 0715 Colostomy 01/14/25 LLQ (Active) Stomal Appliance 1 piece 01/15/25 0715 Site Assessment Clean;Intact 01/15/25 0715 Peristomal Assessment Clean;Intact 01/15/25 0715 Stool Color Red 01/14/25 1515 Output (mL) 0 mL 01/15/25 0715 Urinary Catheter 01/14/25 Coude (Active) Catheter Status Patent 01/15/25 0715 Site Assessment Clean;Skin intact 01/15/25 0715 Collection Container Standard drainage bag/container 01/15/25 0715 Securement Method Right 01/15/25 0715 Tamper Evident Seal Intact No 01/15/25 0715 Indication for Continuation Strict I&O in critically ill patient 01/15/25 0715 Urine Color Yellow/straw 01/15/25 0715 Urine Appearance Clear 01/15/25 0715 Output (mL) 110 mL 01/15/25 0715 Bladder Instillation? No 01/15/25 0715 ETT 01/14/25 Cuffed Oral (Active) Secured at (cm) 23 cm 01/15/25 0818 Measured from Gums 01/15/25 0818 Secured Location Center 01/15/25 0818 Secured by Commercial tube campa 01/15/25 0818 Subglottic Port Yes 01/15/25 0818 Bite Block Yes 01/15/25 0818 Cuff Pressure (cm H2O) 30 cm H2O 01/15/25 0818 Site Condition Cool;Dry 01/15/25 0818 Subglottic Secretions Scant;Thin;Clear 01/15/25 0818 Subglottic Suction Frequency Intermittent suction 01/15/2518 Arterial Line 01/14/25 Right Radial (Active) Line Status Infusing;Pulsatile blood flow 01/15/25714 Line Interventions Leveled;Connections checked and tightened;Pressure bag maintained;Armboard 01/15/25714 Waveform Appropriate 01/15/25714 Site Assessment Clean;Dry;Intact 01/15/25714 Dressing Type Occlusive;Transparent with CHG gel 01/15/25714 Dressing Status Clean;Dry;Intact 01/15/25714 Dressing Intervention Initial dressing 01/15/25714 Color/Movement/Sensation Capillary refill less than 3 sec 01/15/25714 Patient Tolerance of Line Care Tolerated well 01/15/25714 Line Necessity Invasive hemodynamic monitoring 01/15/25714 Line Necessity Reviewed With RN 01/14/251524 Dressing Change Due (Non-Gauze) 01/21/25 01/14/25 152 X-ray chest 1 view Result Date: 01/19/2025 CLINICAL HISTORY: Respiratory failure Comparison: 01/17/2025 Views: 1 view FINDINGS: * Left pleural effusion with atelectasis. This may be slightly improved. Otherwise no new infiltrate. Heart size stable. Central line overlies SVC. IMPRESSION: * Gradually improving chest as above. Finalized by Fernando Champagne MD on 01/19/2025 3:34 PM Echo complete W/O contrast Result Date: 01/14/2025 Left Ventricle: Left ventricle appears normal in size. There is mild asymmetric increased wall thickness/hypertrophy. Systolic function is normal with an ejection fraction of 55-60%. The quantitativeEF by 2D Mitchell biplane is 61%. No obvious regional wall motion abnormalities. Unable to assess diastolic function due to atrial fibrillation/flutter. Right Ventricle: Right ventricular size appearsnormal. The right ventricular basal diameter is 36.0 mm. Normal systolic excursion velocity by TDI (>9.5 cm/s). Tricuspid Valve: There is moderate regurgitation. There is no evidence of tricuspid valve stenosis. There is moderate pulmonary hypertension. Mitral Valve: The leaflets are moderately t hickened. There is mild annular calcification. There is moderate regurgitation with a centrally directed jet. There is no evidence of mitral valve stenosis. ASSESSMENT / PLAN: Acute hypoxic resp failure Extubated 01/15/25 O2 HFNC - wean as tolerated CXR 01/19/25 Hypotension - resolved leukocytosis Post op - 01/14/25 - repair of incarcerated inguinal hernia, colon resection, colostomy, orchiectomy A fib RVR Cardizem gtt - stopped 01/18/25 lopressor oral Home O2 evaluation 01/21/25 . * Edwina Feliz RCP - 01/20/2025 10:01 AM EDT Respiratory Therapy Clinical Practice Guidelines Consult Vital Signs Heart Rate Source: Pulse Ox SpO2: 91 % O2 Device: Nasal cannula O2 Flow Rate (L/min): 2.5 L/min Patient Active Problem List Diagnosis Contracture of finger joint Stroke (CMS-HCC) Paroxysmal atrial fibrillation (CMS-HCC) Bluish skin discoloration Diverticulosis of colon Gastritis and duodenitis GI bleed Mesenteric artery stenosis Cerebral infarction (CMS-HCC) Cardiomyopathy, nonischemic (CMS-HCC) Atrial fibrillation with rapid ventricular response (CMS-HCC) A-fib (CMS-HCC) Acute respiratory failure with hypoxia (CMS-HCC) ELLY (acute kidney injury) Scrotal swelling Colostomy present (CMS-HCC) Fall Traumatic rhabdomyolysis History of CVA (cerebrovascular accident) Hypotension Septic shock (CMS-HCC) H/O unilateral orchiectomy H/O left inguinal hernia repair S/P partial resection of colon Last Chest XRAY: Reviewed Pulmonary History: none RT Reassessment Due In: 24 hours Bronchodilator Respiratory Rate Level 3: 20-25 Dyspnea Level 3: Dyspnea on exertion or periodic stated SOB Breath Sounds Level 2: Diminished and/or faint wheezes Respiratory History Level 1: None Oxygen to Keep SpO2 Greater Than Or Equal To 92% Level 2: 1-3 LPM 25%-35% or NIV 41 - 50% Peak Flow ([employer] Only) Home Therapy: Not Applicable Patients Current Level & Intervention: 3 Four times daily and Q4 PRN as needed for wheezing * Edwina Feliz RCP - 01/20/2025 9:57 AM EDT Respiratory Therapy Clinical Practice Guidelines Consult Vital Signs Heart Rate Source: Pulse Ox SpO2: 91 % O2 Device: Nasal cannula O2 Flow Rate (L/min): 2.5 L/min Patient Active Problem List Diagnosis Contracture of finger joint Stroke ([facility]) Paroxysmal atrial fibrillation ([facility]) Bluish skin discoloration Diverticulosis of colon Gastritis and duodenitis GI bleed Mesenteric artery stenosis Cerebral infarction ([facility]) Cardiomyopathy, nonischemic ([facility]) Atrial fibrillation with rapid ventricular response ([facility]) A-fib ([facility]) Acute respiratory failure with hypoxia ([facility]) ELLY (acute kidney injury) Scrotal swelling Colostomy present ([facility]) Fall Traumatic rhabdomyolysis History of CVA (cerebrovascular accident) Hypotension Septic shock ([facility]) H/O unilateral orchiectomy H/O left inguinal hernia repair S/P partial resection of colon Last Chest XRAY: Reviewed Pulmonary History: none RT Reassessment Due In: 24 hours Broncho-Pulmonary Hygiene Level of Movement Level 3: Low level of mobility Breath Sounds Level 2: Diminished and/or coarse rhonchi Cough Level 3: Ineffective, weak, frequent Chest X-Ray Level 3: Presence of atelectasis and/or consolidation Sputum Production Level 3: Able to produce thick, tenacious secretions with difficulty History & Physical Level 1: None or New onset of bronchitis or existing chronic pulmonary condition. (not in an exacerbation) SpO2 to O2 Need Level 2: >92% on room air or NC < 3 lpm Patients Current Level & Intervention: 3 BPH technique per algorithm QID and PRN * Lu Leigh [facility] - 01/20/2025 9:56 AM EDT [facility] Department of Pharmacy Pharmacist to Physician Communication The dose of piperacillin/tazobactam for intra-abdominal infection has been changed to 4.5 grams IV x1 infused over 30 minutes followed by 3.375 grams every 8 hours infused over [address] [facility] approved renal dosing guidelines, based on an estimated creatinine clearance is 78.1 mL/min (by C-G formula based on SCr of 0.87 mg/dL). Thank you, Lu Leigh RPH * JOANA Sanchez - 01/20/2025 9:33 AM EDT Images from the original note were not included. IP Day: 6 POD#6 Laparotomy, LIH repair, Left orchiectomy, omentectomy, and Tracy's procedure Subjective: 24 Hour Events: On BiPap overnight, weaned to 1LNC this am. CXR improved yesterday, Continues to have a weak cough.Afebrile on IV Ceftriaxone and Flagyl. Leukocytosis trending down. HR remains controlled. Jaimee some po , colostomy functioning well RAAD drain output:15 UOP:290 Colostomy 225 Objective: Vitals: 01/20/25 0917 BP: 101/50 Pulse: 101 Resp: 18 Temp: 36.4 ??C (97.6 ??F) SpO2: 93% Temp: [36.4 ??C (97.6 ??F)-36.6 ??C (97.9 ??F)] 36.4 ??C (97.6 ??F) Pulse: [70-132] 101 Resp: [17-33] 18 BP: (101-134)/(50-77) 101/50 FiO2 (%): [24 %] 24 % SpO2: [89 %-99 %] 93 % O2 Device: Nasal cannula O2 Flow Rate (L/min): [1 L/min-2.5 L/min] 2.5 L/min No Known Allergies Intake/Output last 3 shifts: I/O last 3 completed shifts: In: 442 [P.O.:442] Out: 1098 [Urine:758; Drains:40; Stool:300] Intake/Output this shift: No intake/output data recorded. Dietary Orders (From admission, onward) Start Ordered 01/19/25 1402 Adult nutrition supplements Continuous Comments: Ensure Plus High Protein Question Answer Comment Diet Type or Consistency: Regular Texture Select Supplement: Standard House Supplement 8 oz Supplement Frequency: TID 01/19/25 1402 01/19/25 0904 Adult diet Regular Texture; Low Fiber (gastric soft) Diet effective now Question Answer Comment Diet Type: Regular Texture Other Modifiers: Low Fiber (gastric soft) 01/19/25 0903 Physical Exam General Appearance: Awake, Alert & Oriented x3, mild distress Pulmonary: SOB with talking, weak cough trouble clearing secretions, Fair air entry, scattered rhonchi and wheezing. Cardiac: irregularly irregular Abdomen: ND, BS+ compressible, incision well approximated, no erythema . RAAD drain with serosang outpt, good liquid stool in appliance, colostomy appears well perfused. Extremity: mild edema BLE, abrasions to bilateral knees Genitalia. Scrotal edema /induration continues to improve. Blackwell in place Skin: Dry. No rashes. Eyes: Non-icteric Incisions: Clean, dry, and intact. Lines, Drains, Tubes: RAAD, PICC, PIV x 2 , Blackwell Laboratory Data: Lab Results Component Value Date WBC 14.6 (H) 01/20/2025 HGB 11.4 (L) 01/20/2025 HCT 34.0 (L) 01/20/2025 MCV 93 01/20/2025 PLT 334 01/20/2025 Lab Results Component Value Date GLU 114 (H) 01/20/2025 CALCIUM 8.0 (L) 01/20/2025 K 4.1 01/20/2025 CO2 33 (H) 01/20/2025 CL 98 01/20/2025 BUN 26 01/20/2025 CREATININE 0.87 01/20/2025 No results found for: AMYLASE No results found for: LIPASE Lab Results Component Value Date ALT 32 01/20/2025 AST 41 01/20/2025 ALKPHOS 52 01/20/2025 Lab Results Component Value Date INR 1.6 (H) 01/16/2025 INR 2.1 (H) 01/12/2025 INR 1.1 07/18/2016 PROTIME 18.3 (H) 01/16/2025 PROTIME 24.7 (H) 01/12/2025 PROTIME 12.7 (H) 07/18/2016 acetaminophen, 1,000 mg, oral, Q6H RAYSA apixaban, 5 mg, oral, BID cefTRIAXone (ROCEPHIN) IV, 1,000 mg, intravenous, Q24H chlorhexidine, 15 mL, mouth/throat, BID dilTIAZem CD, 180 mg, oral, Daily melatonin, 6 mg, oral, Nightly metoprolol tartrate, 50 mg, oral, BID metroNIDAZOLE, 500 mg, oral, Q12H RAYSA [COMPLETED] Consult PICC nurse - PICC, , , Once AND sodium chloride, 10 mL, intravenous, Q12H AND sodium chloride, 10 mL, intravenous, PRN AND sodium chloride, 20 mL, intravenous, PRN acetaminophen alum-mag hydroxide-simeth HYDROmorphone levalbuterol magnesium sulfate magnesium sulfate metoprolol (LOPRESSOR) IV ondansetron oxyCODONE oxyCODONE potassium chloride OR potassium chloride OR potassium chloride IV (Adult) sennosides-docusate sodium [COMPLETED] Consult PICC nurse - PICC AND sodium chloride AND sodium chloride AND sodium chloride Radiology: X-ray chest 1 view Result Date: 01/19/2025 CLINICAL HISTORY: Respiratory failure Comparison: 01/17/2025 Views: 1 view FINDINGS: * Left pleural effusion with atelectasis. This may be slightly improved. Otherwise no new infiltrate. Heart size stable. Central line overlies SVC. IMPRESSION: * Gradually improving chest as above. Finalized by Fernando Champagne MD on 01/19/2025 3:34 PM Principal Problem: Acute respiratory failure with hypoxia (CMS-HCC) Active Problems: Paroxysmal atrial fibrillation (CMS-HCC) Cardiomyopathy, nonischemic (CMS-HCC) Atrial fibrillation with rapid ventricular response (CMS-HCC) A-fib (CMS-HCC) ELLY (acute kidney injury) Scrotal swelling Colostomy present (CMS-HCC) Fall Traumatic rhabdomyolysis History of CVA (cerebrovascular accident) Hypotension Septic shock (CMS-HCC) H/O unilateral orchiectomy H/O left inguinal hernia repair S/P partial resection of colon Assessment and Plan: Incarcerated LIH with contained sigmoid perforation. S/p Laparotomy , LIH repair, Omentectomy and Orchiectomy. Tracy's procedure - IV abx of Ceftriaxone and Flagyl -Asp cx E coli and strep gordonii Edith , BC (-) 2d - would benefit from ID consult - RAAD out serous , will remove today -colostomy with good outpt -jaimee soft gastric diet -enterostomal therapy to see 2. Traumatic blackwell attempt -Urology place 18F coude catheter -good urine outpt, non bloody 3. Acute respiratory failure with hypotension -Off pressor support -I/S, encourage cough, PD to chest with vest -OOB to the chair - aerosols -Pulmonary following. 4 Afib with RVR -Rate controlled on oral medications - On home eliquis -Cardiology following Prophylxis EPC Pepcid Plan discussed with Dr. Maldonado -- JOANA SANCHEZ 01/20/25 9:34 AM JOANA Sanchez 01/20/25 0945 Cosigned by Robert Gil MD at 01/20/2025 11:13 AM EDT * Santiago Plummer MD - 01/20/2025 6:51 AM EDT [facility] Progress Note 01/20/2025 6:51 AM Subjective: Mr. Guerrero was transferred out of ICU to step-down telemetric monitoring bed last evening, per the charge nurse report. Sleeping soundly at the time of my rounds and did not wake up during my examination. Night nurse told me that patient has remains stable without any active cardiac issues since transferred to step-down telemetric monitoring bed overnight. Review of symptoms: Unobtainable as patient is sleeping at the time of my rounds. LABS: Recent Results (from the past 24 hours) Potassium Collection Time: 01/19/25 8:28 AM Result Value Ref Range POTASSIUM 3.9 3.5 - 5.0 mmol/L Comprehensive metabolic panel Collection Time: 01/20/25 4:20 AM Result Value Ref Range SODIUM 139 134 - 146 mmol/L POTASSIUM 4.1 3.5 - 5.0 mmol/L CHLORIDE 98 98 - 109 mmol/L CARBON DIOXIDE 33 (H) 22 - 32 mmol/L ANION GAP 8 5 - 15 mmol/L BLOOD UREA NITROGEN 26 5 - 27 mg/dL CREATININE 0.87 0.70 - 1.20 mg/dL GLUCOSE 114 (H) 65 - 99 mg/dL CALCIUM 8.0 (L) 8.5 - 10.5 mg/dL TOTAL PROTEIN 5.1 (L) 6.0 - 8.0 g/dL ALBUMIN 2.4 (L) 3.2 - 5.3 g/dL ALKALINE PHOSPHATASE 52 39 - 130 U/L AST 41 <=41 U/L ALT 32 <=40 U/L BILIRUBIN,TOTAL 0.7 0.3 - 1.2 mg/dL EGFR Non-Race Dependent >90 >=60 ml/min/1.73sq.m Magnesium Collection Time: 01/20/25 4:20 AM Result Value Ref Range MAGNESIUM 1.9 1.8 - 2.6 mg/dL CBC auto differential Collection Time: 01/20/25 4:20 AM Result Value Ref Range WBC 14.6 (H) 4 - 11 x10E9/L RBC Count 3.64 (L) 4.1 - 5.7 X10E12/L Hemoglobin 11.4 (L) 13 - 17 g/dL Hematocrit 34.0 (L) 39 - 50 % MCV 93 80 - 100 fL MCH 31.2 27 - 34 pg MCHC 33.4 32 - 36 g/dL RDW 14.3 11.5 - 15 % Platelet Count 334 150 - 450 X10E9/L MPV 7.7 7 - 12 fL Neutrophils % 89 % Lymphocytes % 5 % Monocytes % 4 % Eosinophils % 2 % Neutrophils Absolute (M) 13.0 (H) 1.5 - 6.6 10*3/uL Lymphocytes Absolute 0.7 (L) 1.0 - 3.5 10*3/uL Monocytes Absolute 0.6 0.0 - 0.9 10*3/uL Eosinophils Absolute 0.3 0.0 - 0.4 10*3/uL RBC Morphology Normal Differential Type MANUAL DIFFERENTIAL Pulse Ox: SpO2 Av.7 % Min: 87 % Max: 99 % Supplemental O2: O2 Flow Rate (L/min): 2 L/min Current Meds: acetaminophen, 1,000 mg, oral, Q6H RAYSA apixaban, 5 mg, oral, BID cefTRIAXone (ROCEPHIN) IV, 1,000 mg, intravenous, Q24H chlorhexidine, 15 mL, mouth/throat, BID dilTIAZem CD, 180 mg, oral, Daily melatonin, 6 mg, oral, Nightly metoprolol tartrate, 50 mg, oral, BID metroNIDAZOLE, 500 mg, oral, Q12H RAYSA [COMPLETED] Consult PICC nurse - PICC, , , Once AND sodium chloride, 10 mL, intravenous, Q12H AND sodium chloride, 10 mL, intravenous, PRN AND sodium chloride, 20 mL, intravenous, PRN VITAL SIGNS: BP 123/75 Pulse 70 Temp 36.5 ??C (97.7 ??F) (Oral) Resp 17 Ht 177.8 cm (5' 10 ) Wt 84.8 kg (186 lb 15.2 oz) SpO2 99% BMI 26.82 kg/m?? 2 L/min Admit Weight: 83.2 kg (183 lb 6.8 oz) Last 3 weights: Wt Readings from Last 3 Encounters: 01/15/25 84.8 kg (186 lb 15.2 oz) 01/14/25 83.2 kg (183 lb 6.8 oz) 05/19/24 80.5 kg (177 lb 6.4 oz) BMI: Body mass index is 26.82 kg/m??. INPUT/OUTPUT: Intake/Output Summary (Last 24 hours) at 01/20/2025 0651 Last data filed at 01/19/20251999 Gross per 24 hour Intake -- Output 530 ml Net -530 ml Telemetry shows Atrial fibrillation with controlled ventricular rate ventricular rate around 70-80 range at the time of my rounds. EXAM: General appearance: Sleeping soundly with eyes closed. Chest: Fair air entry bilaterally with scattered rhonchi anteriorly. No wheezing. Cardiac: Irregularly irregular rate and rhythm. No S3 gallop Extremities: No leg edema. Skin: Warm and dry. LABS: CBC: Lab Results Component Value Date WBC 14.6 (H) 01/20/2025 HGB 11.4 (L) 01/20/2025 HCT 34.0 (L) 01/20/2025 MCV 93 01/20/2025 PLT 334 01/20/2025 BMP: Lab Results Component Value Date GLU 114 (H) 01/20/2025 CALCIUM 8.0 (L) 01/20/2025 K 4.1 01/20/2025 CO2 33 (H) 01/20/2025 BUN 26 01/20/2025 CREATININE 0.87 01/20/2025 PT/INR: Lab Results Component Value Date INR 1.6 (H) 01/16/2025 INR 2.1 (H) 01/12/2025 INR 1.1 07/18/2016 PROTIME 18.3 (H) 01/16/2025 PROTIME 24.7 (H) 01/12/2025 PROTIME 12.7 (H) 07/18/2016 2D echocardiogram January 13, 2025: Left Ventricle: Left ventricle appears normal in size. There is mild asymmetric increased wall thickness/hypertrophy. Systolic function is normal with an ejection fraction of 55-60%. The quantitativeEF by 2D Mitchell biplane is 61%. No obvious regional wall motion abnormalities. Unable to assess diastolic function due to atrial fibrillation/flutter. Right Ventricle: Right ventricular size appears normal. The right ventricular basal diameter is 36.0 mm. Normal systolic excursion velocity by TDI (>9.5 cm/s). Tricuspid Valve: There is moderate regurgitation. There is no evidence of tricuspid valve stenosis.There is moderate pulmonary hypertension. Mitral Valve: The leaflets are moderately thickened. There is mild annular calcification. There is moderate regurgitation with a centrally directed jet. There is no evidence of mitral valve stenosis. ASSESSMENT: Paroxysmal atrial fibrillation with RVR at times- on chronic Eliquis therapy. Normal left ventricular systolic function on 2D echocardiogram December 2024. Moderate mitral regurgitation, moderate tricuspid regurgitation, moderate pulmonary hypertension 2Dechocardiogram December 2024. History of nonischemic cardiomyopathy with recovered LV ejection fraction. Nonobstructive coronary artery disease on cardiac catheterization 2012. Postoperative state with left inguinal hernia repair, left orchiectomy, omentectomy, Jed's procedure January 14, 2025. History of CVA, status post lytic therapy. Other problems as documented. RECOMMENDATION/PLAN: Improving clinically and stable overall cardiac-bradshaw. Continue on Eliquis 5 mg b.i.d., will discontinue shorter acting diltiazem 30 mg q.6 hours as patient was started on diltiazem CD [address] holding parameters, continue on metoprolol 50 mg b.i.d. with holding parameters, continued other supportive care as you are doing. No family members available at bedside to discuss. Discussed with the charge nurse and night nurse at the time of my rounds. Will follow. Santiago Plummer MD, [facility] PLEASE NOTE: This progress note was completed using a voice armature inspector system. Every effort was made to ensure accuracy. However, inadvertent computerized armature inspector errors may be present. * Chyna Sanchez MD - 01/20/2025 6:43 AM EDT Images from the original note were not included. [facility] [id number] [facility] [id number] Hospital Medicine Progress Note Patient: Paul Guerrero Date of : 1950 Room: PCP: NO PCP, NO PCP Admission date: 01/14/2025 3:03 PM Encounter date: 01/20/25 Hospital Day: 7 SUBJECTIVE Interval History: Status: improved. No overnight events. Patient was seen and examined at the bedside No signs of acute distress noted at this time No chest pain or dizziness No nausea or vomiting Hemodynamically stable for discharge Currently awaiting placement Discontinue ceftriaxone Flagyl Start Zosyn micafungin Continue Zosyn until February 10 Continue micafungin until February 16 Review of Systems Constitutional: Negative for activity change, appetite change, chills, fatigue, fever and unexpected weight change. HENT: Negative for congestion, dental problem, hearing loss, rhinorrhea, sore throat, trouble swallowing and voice change. Eyes: Negative for visual disturbance. Respiratory: Negative for cough, shortness of breath and wheezing. Cardiovascular: Negative for chest pain, palpitations and leg swelling. Gastrointestinal: Negative for abdominal pain, blood in stool, constipation, diarrhea, nausea and vomiting. Genitourinary: Negative for difficulty urinating, dysuria, enuresis, frequency and hematuria. Musculoskeletal: Negative for arthralgias, joint swelling and myalgias. Skin: Negative for color change, rash and wound. Neurological: Positive for weakness. Negative for dizziness, seizures, syncope, speech difficulty, numbness and headaches. Hematological: Negative for adenopathy. Does not bruise/bleed easily. Psychiatric/Behavioral: Negative for dysphoric mood and sleep disturbance. The patient is not nervous/anxious. All other systems reviewed and are negative. OBJECTIVE BP 123/75 Pulse 70 Temp 36.5 ??C (97.7 ??F) (Oral) Resp 17 Ht 177.8 cm (5' 10 ) Wt 84.8 kg (186 lb 15.2 oz) SpO2 99% BMI 26.82 kg/m?? Temp: [36.4 ??C (97.6 ??F)-36.7 ??C (98.1 ??F)] 36.5 ??C (97.7 ??F) Pulse: [70-151] 70 Resp: [17-33] 17 BP: (99-134)/(58-77) 123/75 FiO2 (%): [24 %] 24 % SpO2: [87 %-99 %] 99 % O2 Device: Nasal cannula O2 Flow Rate (L/min): [1 L/min-2 L/min] 2 L/min Intake/Output Summary (Last 24 hours) at 01/20/2025 0643 Last data filed at 01/19/20251999 Gross per 24 hour Intake -- Output 530 ml Net -530 ml Physical Exam Vitals and nursing note reviewed. Constitutional: General: He is not in acute distress. Appearance: Normal appearance. He is well-developed. HENT: Head: Normocephalic and atraumatic. Right Ear: External ear normal. Left Ear: External ear normal. Nose: Nose normal. Right Sinus: No maxillary sinus tenderness or frontal sinus tenderness. Left Sinus: No maxillary sinus tenderness or frontal sinus tenderness. Mouth/Throat: Lips: [place]. Mouth: Mucous membranes are moist. Pharynx: Oropharynx is clear. Eyes: General: No scleral icterus. Extraocular Movements: Extraocular movements intact. Pupils: Pupils are equal, round, and reactive to light. Neck: Vascular: No carotid bruit or JVD. Cardiovascular: Rate and Rhythm: Normal rate. Rhythm irregular. Pulses: Radial pulses are 2+ on the right side and 2+ on the left side. Heart sounds: Normal heart sounds, S1 normal and S2 normal. No murmur heard. No friction rub. No gallop. Pulmonary: Effort: Pulmonary effort is normal. Breath sounds: No decreased air movement. Rhonchi present. No decreased breath sounds, wheezing or rales. Abdominal: General: Bowel sounds are normal. Palpations: Abdomen is soft. Tenderness: There is no abdominal tenderness. Comments: Colostomy in place Musculoskeletal: Cervical back: Full passive range of motion without pain. Right lower leg: No edema. Left lower leg: No edema. Skin: General: Skin is warm and dry. Capillary Refill: Capillary refill takes less than 2 seconds. Coloration: Skin is pale. Findings: Bruising present. No erythema, rash or wound. Neurological: Motor: No weakness. Medications Scheduled: acetaminophen, 1,000 mg, oral, Q6H RAYSA apixaban, 5 mg, oral, BID cefTRIAXone (ROCEPHIN) IV, 1,000 mg, intravenous, Q24H chlorhexidine, 15 mL, mouth/throat, BID dilTIAZem CD, 180 mg, oral, Daily melatonin, 6 mg, oral, Nightly metoprolol tartrate, 50 mg, oral, BID metroNIDAZOLE, 500 mg, oral, Q12H RAYSA [COMPLETED] Consult PICC nurse - PICC, , , Once AND sodium chloride, 10 mL, intravenous, Q12H AND sodium chloride, 10 mL, intravenous, PRN AND sodium chloride, 20 mL, intravenous, PRN Infusions: As Needed: acetaminophen alum-mag hydroxide-simeth HYDROmorphone levalbuterol magnesium sulfate magnesium sulfate metoprolol (LOPRESSOR) IV ondansetron oxyCODONE oxyCODONE potassium chloride OR potassium chloride OR potassium chloride IV (Adult) sennosides-docusate sodium [COMPLETED] Consult PICC nurse - PICC AND sodium chloride AND sodium chloride AND sodium chloride Allergies: Patient has no known allergies. Code Status: Full Code Labs Recent Results (from the past 24 hours) Potassium Collection Time: 01/19/25 8:28 AM Result Value Ref Range POTASSIUM 3.9 3.5 - 5.0 mmol/L Comprehensive metabolic panel Collection Time: 01/20/25 4:20 AM Result Value Ref Range SODIUM 139 134 - 146 mmol/L POTASSIUM 4.1 3.5 - 5.0 mmol/L CHLORIDE 98 98 - 109 mmol/L CARBON DIOXIDE 33 (H) 22 - 32 mmol/L ANION GAP 8 5 - 15 mmol/L BLOOD UREA NITROGEN 26 5 - 27 mg/dL CREATININE 0.87 0.70 - 1.20 mg/dL GLUCOSE 114 (H) 65 - 99 mg/dL CALCIUM 8.0 (L) 8.5 - 10.5 mg/dL TOTAL PROTEIN 5.1 (L) 6.0 - 8.0 g/dL ALBUMIN 2.4 (L) 3.2 - 5.3 g/dL ALKALINE PHOSPHATASE 52 39 - 130 U/L AST 41 <=41 U/L ALT 32 <=40 U/L BILIRUBIN,TOTAL 0.7 0.3 - 1.2 mg/dL EGFR Non-Race Dependent >90 >=60 ml/min/1.73sq.m Magnesium Collection Time: 01/20/25 4:20 AM Result Value Ref Range MAGNESIUM 1.9 1.8 - 2.6 mg/dL CBC auto differential Collection Time: 01/20/25 4:20 AM Result Value Ref Range WBC 14.6 (H) 4 - 11 x10E9/L RBC Count 3.64 (L) 4.1 - 5.7 X10E12/L Hemoglobin 11.4 (L) 13 - 17 g/dL Hematocrit 34.0 (L) 39 - 50 % MCV 93 80 - 100 fL MCH 31.2 27 - 34 pg MCHC 33.4 32 - 36 g/dL RDW 14.3 11.5 - 15 % Platelet Count 334 150 - 450 X10E9/L MPV 7.7 7 - 12 fL Neutrophils % 89 % Lymphocytes % 5 % Monocytes % 4 % Eosinophils % 2 % Neutrophils Absolute (M) 13.0 (H) 1.5 - 6.6 10*3/uL Lymphocytes Absolute 0.7 (L) 1.0 - 3.5 10*3/uL Monocytes Absolute 0.6 0.0 - 0.9 10*3/uL Eosinophils Absolute 0.3 0.0 - 0.4 10*3/uL RBC Morphology Normal Differential Type MANUAL DIFFERENTIAL Radiology X-ray chest 1 view Result Date: 01/19/2025 CLINICAL HISTORY: Respiratory failure Comparison: 01/17/2025 Views: 1 view FINDINGS: * Left pleural effusion with atelectasis. This may be slightly improved. Otherwise no new infiltrate. Heart size stable. Central line overlies SVC. IMPRESSION: * Gradually improving chest as above. Finalized by Fernando Champagne MD on 01/19/2025 3:34 PM HOSPITAL PROBLEM LIST Principal Problem: Acute respiratory failure with hypoxia (CMS-HCC) Active Problems: Paroxysmal atrial fibrillation (CMS-HCC) Cardiomyopathy, nonischemic (CMS-HCC) Atrial fibrillation with rapid ventricular response (CMS-HCC) A-fib (CMS-[facility]) ELLY (acute kidney injury) Scrotal swelling Colostomy present (CMS-[facility]) Fall Traumatic rhabdomyolysis History of CVA (cerebrovascular accident) Hypotension Septic shock (CMS-[facility]) H/O unilateral orchiectomy H/O left inguinal hernia repair S/P partial resection of colon ASSESSMENT & PLAN Acute respiratory failure with hypoxia Hypotension Transferred to [facility] from [place] Pulmonology consulted Extubated 01/15 Now on 1L NC Off levophed Scrotal swelling Incarcerated hernia Colostomy creation General surgery following OR at [place] 01/[address] James Lanier/Lydia for intraabdominal coverage POD#5 Laparotomy, LIH repair, Left orchiectomy, omentectomy, and Tracy's procedure ID consulted On micafungin and Zosyn Acute kidney injury Traumatic rhabdomyolysis Trend CK/Myoglobin daily Creatinine normalized Traumatic blackwell insertion Urology consulted Dr. Stevenson with Urology was spoke to at [place] intraop Requested no Blackwell insertion attempts until Urology can see patient Blackwell placed with urology 01/14 with urology Paroxysmal atrial fibrillation PO Cardizem 180 q.day with parameters On Eliquis and metoprolol at home Heparin drip discontinued DC planning: SNF. Medically Ready for Discharge: Anticipated Today PAT Cheng 01/20/2025 6:43 AM [facility] Medicine 7AM-7PM & 7PM-7AM: EpicChat or page through On-Call Finder. PAT Cheng 01/20/[address] Chyna Sanchez, personally performed a face to face diagnostic evaluation on this patient. I have reviewed the note authored by the advance practice provider including history, review of systems, physical examination, medical decision making and agree with the assessment and plan as written. I have seen and evaluated the patient,I have repeated the wood portions of the physical exam and concur with the CESARIO findings.I have reviewed all laboratory findings and imaging reprts/films.I agree with the plan as noted. * Myranda Roe RPH - 01/19/2025 1:20 PM EDT [facility] Department of Pharmacy Pharmacy-Physician Communication Paul Guerrero ( ) qualifies for stress ulcer prophylaxis discontinuation per [facility] Policy. Famotidine ORAL has been selected for discontinuation. The patient does not have any one of the independent risk factors for prophylaxis criteria: 1. Coagulopathy (INR >1.5 [not on anticoagulation], platelets <50,000, aPTT > 2x normal) 2. Mechanical ventilation > 48 hours or any two or more of the followin. Sepsis/shock 2. ICU admission > 1 week 3. Glucocorticoid therapy (>250 mg/day hydrocortisone or equiv) 4. History of ulcers/bleeding within 1 year 5. Chaves covering > 35% BSA 6. Head/spinal trauma 7. Organ transplantation 8. Occult or overt bleeding for > 6 days The patient also does not fit the exclusion criteria for the automatic discontinuation: 1. Use of PPI/H2RA prior to admission 2. Acute upper GI bleed/positive stool occult blood a. Use of continuous infusion or 40 mg twice daily of pantoprazole 3. H. pylori treatment 4. Gastric or duodenal ulcer 5. Patients receiving dual antiplatelet therapy or dual antithrombotic therapy 6. GERD 7. Sridhar-Blanco syndrome If you feel that this discontinuation is not appropriate, please re-order the medication and selectthe Dispense As Written (ELDER) order indication, or an indication for use besides SUP. Thank you, Myranda Roe RPH * JARAD Weems - 01/19/2025 1:19 PM EDT NUTRITION ADULT INITIAL EVALUATION NUTRITION ASSESSMENT: Reason to be seen: DAtabase incomplete. ICU stay this admit Patient History: Admit Diagnosis: Patient Active Problem List Diagnosis Contracture of finger joint [place] Paroxysmal atrial fibrillation [place] Bluish skin discoloration Diverticulosis of colon Gastritis and duodenitis GI bleed Mesenteric artery stenosis Cerebral infarction ([facility]) Cardiomyopathy, nonischemic [place] Atrial fibrillation with rapid ventricular response [place] A-fib [place] Acute respiratory failure with hypoxia [place] ELLY (acute kidney injury) Scrotal swelling Colostomy present ([facility]) Fall Traumatic rhabdomyolysis History of CVA (cerebrovascular accident) Hypotension Septic shock [place] H/O unilateral orchiectomy H/O left inguinal hernia repair S/P partial resection of colon Past Medical History: Past Medical History: Diagnosis Date A-fib [place] 01/14/2025 admission Acute renal failure (ARF) occured at time of GI bleed Atrial fibrillation [place] Bluish skin discoloration CHF (congestive heart failure) [place] 2012 initial EF 15 % // last ECHO 55 % Cholecystitis Contracture of finger joint Patient had an accident on a ladder causing deformity and this eventually developed into a contracture. Patient elected not to have surgery. 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 / [facility] / Dr Bruce/ CTA Occult blood in stools abn fit test Peptic ulceration GI bleed Pneumonia Respiratory failure [place] occured at time of GI bleed Stroke [place] 06/2016 rx with TPA Past Surgical History: Past Surgical History: Procedure Laterality Date CARDIAC CATHETERIZATION COLONOSCOPY diverticulosis / lg ingunial hernia CREATION COLOSTOMY Left 01/14/2025 Performed by Delmar Ramirez MD at [facility] ESOPHAGOGASTRODUODENOSCOPY severe errosis gastritis and duodenitis ORCHIECTOMY Left 01/14/2025 Performed by Delmar Ramirez MD at [facility] REPAIR HERNIA INGUINAL Left 01/14/2025 Performed by Delmar Ramirez MD at [facility] TONSILLECTOMY Social/ Cognitive/ Economic: From home prior to outside hospital admit 01/12. Discharge planning to a facility noted. Brief Clinical Summary: Presented to outside hospital s/p fall. Surgery following for incarcerated inguinal hernia with contained sigmoid perforation requiring surgery this admit including colostomy creation. Transferred to [facility] after surgery for urology and higher level of care. Pulmonology notes acute hypoxic respiratory failure. Noted significant history of CHF, CVA, GI bleed, pneumonia. Biochemical Data, Medical Tests, and Procedures: 01/17: Chest X-ray - Interval worsening with large left basilar infiltrate and atelectasis. Probablemoderate left pleural effusion. 01/15: extubated 01/14: OR - open R inguinal hernia repair with end colostomy Labs: Results from last 3 days Lab Units 01/19/25 0828 01/19/25 0308 01/18/25 1153 01/18/25 0428 01/17/25 0405 SODIUM mmol/L -- 139 -- 141 141 POTASSIUM mmol/L 3.9 3.6 4.3 3.7 4.0 CHLORIDE mmol/L -- 99 -- 98 101 CO2 mmol/L -- 33* -- 33* 30 BUN mg/dL -- 29* -- 36* 43* CREATININE mg/dL -- 0.94 -- 0.98 1.07 CALCIUM mg/dL -- 8.0* -- 8.4* 8.6 ALBUMIN g/dL -- 2.4* -- 2.5* 2.6* ALK PHOS U/L -- 48 -- 60 67 ALT U/L -- 28 -- 35 38 AST U/L -- 18 -- 24 25 Results from last 7 days Lab Units 01/19/25 0308 01/18/25 0428 01/17/25 0405 01/16/25 0428 01/15/25 0310 01/14/25 1252 01/14/25 0425 GLUCOSE mg/dL 111* 126* 122* 118* 113* 130* 115* Results from last 3 days Lab Units 01/19/25 0308 01/18/25 0428 01/17/25 0405 WBC x10E9/L 16.7* 19.0* 18.2* HEMOGLOBIN g/dL 11.2* 12.0* 12.0* HEMATOCRIT % 33.2* 36.1* 35.7* PLATELETS X10E9/L 340 393 377 MCV fL 93 95 94 Results from last 3 days Lab Units 01/19/25 0308 01/18/25 1153 01/18/25 0428 MAGNESIUM mg/dL 2.0 2.3 1.8 No data from last 3 days. Results from last 3 days Lab Units 01/19/25 0308 01/18/25 0428 01/17/25 0405 BILIRUBIN, TOTAL mg/dL 0.5 0.6 0.4 Lab Results Component Value Date HGBA1C 6.3 (H) 09/04/2012 Lab Results Component Value Date IRON 7 (L) 09/04/2012 TIBC 274 09/04/2012 Lab Results Component Value Date IRONSAT 3 (L) 09/04/2012 Lab Results Component Value Date CHOL 93 (L) 05/12/2024 Lab Results Component Value Date CHDL 2.3 05/12/2024 Lab Results Component Value Date HDL 40 05/12/2024 Lab Results Component Value Date LDLCALC 37 05/12/2024 Lab Results Component Value Date TRIG 82 05/12/2024 Lab Results Component Value Date VERYLOWLIP 16 05/12/2024 No results found for: [id number] No results found for: FOLATE No results found for: VITD25 Comments (labs): GLu 111, K WNL Medications/ Parenteral: Rocephin, flagyl Medications Prior to Admission Medication Sig Dispense Refill Last Dose/Taking apixaban (ELIQUIS) 5 mg tablet Take 1 tablet (5 mg total) by mouth in the morning and 1 tablet (5 mg total) before bedtime. (Patient taking differently: Take 1 tablet (5 mg total) by mouth in the morning and 1 tablet (5 mg total) before bedtime. Last dose was given at [facility] 01/13 0930 Prior to transfer.) 180 tablet 2 01/13/2025 at 9:30 AM metoprolol tartrate (LOPRESSOR) 50 mg tablet Take 1 tablet (50 mg total) by mouth in the morning and 1 tablet (50 mg total) before bedtime. 180 tablet 3 Taking Current Facility-Administered Medications Medication Dose Route Frequency Provider Last Rate Last Admin acetaminophen (TYLENOL EXTRA STRENGTH) tablet 1,000 mg 1,000 mg oral Q6H JOANA Garcia 1,000 mg at 01/19/25 1246 acetaminophen (TYLENOL EXTRA STRENGTH) tablet 500 mg 500 mg oral Q6H PRN PAT Ybarra alum-mag hydroxide-simeth (MAALOX) 200-200-20 mg/5 mL suspension 30 mL 30 mL oral PCHSP PAT Ybarra apixaban (ELIQUIS) tablet 5 mg 5 mg oral BID Santiago Plummer MD 5 mg at 01/19/25 0836 cefTRIAXone (ROCEPHIN) 1,000 mg in sodium chloride 0.9 % 50 mL IVPB W/ADAPTER 1,000 mg intravenous Q24H PAT Ybarra Stopped at 01/18/25 2110 chlorhexidine (PERIDEX) 0.12 % solution 15 mL 15 mL mouth/throat BID Travis Agrawal MD 15 mL at 01/19/25 0837 dilTIAZem (CARDIZEM) tablet 30 mg 30 mg oral Q6H [facility] Santiago Plummer MD 30 mg at 01/19/25 1239 famotidine (PEPCID) tablet 20 mg 20 mg oral BID PAT Ybarra HYDROmorphone (PF) (DILAUDID) injection 0.5 mg 0.5 mg intravenous Q3H PRN JOANA Sanchez levalbuterol (XOPENEX) nebulizer solution 1.25 mg 1.25 mg nebulization Q4H PRN Travis Agrawal MD 1.25 mg at 01/19/25 0406 magnesium sulfate IVPB 2000 mg/50 mL in iso-osmotic water (40 mg/mL premix) 2,000 mg intravenous PRN PAT Ybarra Stopped at 01/18/25 0804 magnesium sulfate IVPB 4000 mg/100 mL in iso-osmotic water (40 mg/mL premix) 4,000 mg intravenous PRN Brenda Millan, ELEVATOR [employer]NER[employer]DYLAN melatonin (CIRCADIN) tablet 6 mg 6 mg oral Nightly PAT Collier metoprolol (LOPRESSOR) injection 2.5 mg 2.5 mg intravenous Q6H PRN Alis Weems MD 2.5 mg at 01/17/25 1020 metoprolol tartrate (LOPRESSOR) tablet 50 mg 50 mg oral BID Santiago Plummer MD 50 mg at 836 metroNIDAZOLE (FLAGYL) tablet 500 mg 500 mg oral Q12H [facility] Brenda Millan, ELEVATOR RUNNER[employer]DYLAN ondansetron (PF) (ZOFRAN) injection 4 mg 4 mg intravenous Q4H PRN Brenda Millan, FAITH-DYLAN oxyCODONE (ROXICODONE) immediate release tablet 10 mg 10 mg oral Q4H PRN JONAA Sanchez oxyCODONE (ROXICODONE) immediate release tablet 5 mg 5 mg oral Q4H PRN JOANA Sanchez potassium chloride (K-TAB,KLOR-CON) CR tablet 30-50 mEq 30-50 mEq oral PRN Brenda Millan, ELEVATOR RUNNER-PRIVATE EQUITY ANALYST 30 mEq at 01/19/25 0357 Or potassium chloride (KAYCIEL) 20 mEq/15 mL solution 30-50 mEq 30-50 mEq oral PRN Brenda Millan, FAITH-DYLAN Or potassium chloride IVPB 10 mEq/100 mL in water (0.1 mEq/mL premix) 10 mEq intravenous PRN Brenda Millan, ELEVATOR [employer]NER-[employer]IVATE EQU[employer] ANALYST sennosides-docusate sodium (SENOKOT-S) 8.6-50 mg 1 tablet 1 tablet oral Q12H PRN Brenda Millan, ELEVATOR RUNNER-PRIVATE EQUITY ANALYST sodium chloride 0.9 % flush 10 mL 10 mL intravenous Q12H Brenda Millan, ELEVATOR RUNNER- [employer]IVATE EQUITY ANALYST 10 mL at 01/19/25 0309 And sodium chloride 0.9 % flush 10 mL 10 mL intravenous PRN Brenda Millan, FAITH-PRIVATE EQUITY ANALYST And sodium chloride 0.9 % flush 20 mL 20 mL intravenous PRN Brenda Millan, ELEVATOR RUNNER-PRIVATE EQUITY ANALYST Nutrition Focused Physical Findings Noted on 1L NC. Reports tolerance thus far to small amount of bagel at lunch. Surgery noted tolerance to full liquids. Noted discharge planning to a facility. I/o reviewed, noted 325ml colostomy output; patient reports this as very loose. Extremities, Muscles, and Bones A. Muscle Loss Clavicle: Mild Interosseous: Moderate B. Loss of Subcutaneous Fat Orbital: Mild Skin (per nursing flow sheets): Skin Color: Ecchymosis (01/19/25 08) Skin Temp: Warm; Dry (01/19/25 08) Wound (per nursing flow sheets): Wound 01/14/25 Incision Groin Left-Site Assessment: Clean; Dry; Intact (01/18/25 1655) Wound 01/14/25 Incision Abdomen N/A-Site Assessment: Clean; Dry; Intact (01/19/25 08) Wound 01/14/25 Incision Abdomen Left-Site Assessment: Clean; Dry; Intact (01/19/25 08) Gastrointestinal (per nursing flow sheets): Abdomen Assessment: Soft; Nondistended (01/19/25 08) Last BM Date: 01/19/25 (01/19/25 08) Passing Flatus: Yes (01/19/25 08) RUQ Bowel Sounds: Active (01/19/25 08) LUQ Bowel Sounds: Active (01/19/25 08) RLQ Bowel Sounds: Active (01/19/25 08) LLQ Bowel Sounds: Active (01/19/25 08) GI Symptoms: None (01/18/25 0400) Edema (per nursing flow sheets): -- Intake/ Output Last 24 hrs: Intake/Output Summary (Last 24 hours) at 01/19/2025 1319 Last data filed at 01/19/2025 1243 Gross per 24 hour Intake 1014.25 ml Output 1073 ml Net -58.75 ml Food/Nutrition Related History: Diet History: Reports fair intake prior to hospital admit at one large meal/day later in afternoon with some snacking. Did not rely on nutritional supplements. Per conversation, cooked/shopped for self. Nutrition Knowledge/Beliefs/Attitudes: Desires diet education Allergies: No Known Allergies Diet/ Nutrition Order Review: Dietary Orders (From admission, onward) Start Ordered 01/19/25 0904 Adult diet Regular Texture; Low Fiber (gastric soft) Diet effective now Question Answer Comment Diet Type: Regular Texture Other Modifiers: Low Fiber (gastric soft) 01/19/25 0903 Diet Intakes: Percent Meals Eaten (%): 25 (01/18/25 0936) of meals when noted. Ordering with assist. Able to feed self. Reports taking it slow s/p surgery. Nursing notes fair appetite Oral Supplemental Intake/ Acceptance: agreeable to chocolate ENsure Plus HP TID Anthropometrics: Ht Readings from Last 1 Encounters: 01/14/25 177.8 cm (5' 10 ) Wt Readings from Last 20 Encounters: 01/15/25 84.8 kg (186 lb 15.2 oz) 01/14/25 83.2 kg (183 lb 6.8 oz) 05/19/24 80.5 kg (177 lb 6.4 oz) 04/22/23 79.4 kg (175 lb) 04/23/22 78.3 kg (172 lb 9.6 oz) 03/30/21 77.3 kg (170 lb 6.4 oz) 12/24/19 76.7 kg (169 lb) 04/24/19 75.8 kg (167 lb) 04/16/19 75.3 kg (166 lb) 11/24/18 75.8 kg (167 lb) 11/25/17 75 kg (165 lb 6.4 oz) 06/05/17 75.3 kg (166 lb) 04/15/17 75.3 kg (166 lb) 12/10/16 75.3 kg (166 lb) 10/30/16 75.8 kg (167 lb) 08/01/16 76.7 kg (169 lb) Last 3 Weight Readings 01/14/25 1524 01/15/25 0500 Weight: 83.2 kg (183 lb 6.8 oz) 84.8 kg (186 lb 15.2 oz) Admit Weight: 83.2kg 01/14, no method Usual Body Weight: not discussed [place] Body Weight: 75.4kg Weight Changes: stable prior to admit Body Mass Index: Body mass index is 26.82 kg/m??. BMI Category: Pre-obese (25.00- 29.99) Comparative Standards: Estimated Energy Needs: 8241-7735 kcals daily. Method and weight used: 25-30 kcal/kg IBW 75.4kg Estimated Protein Needs: 90-150 grams daily. Method and weight used: 1.2-2g protein/kg IBW 75.4kg Estimated Fluid Needs: 8033-2821 ml daily. Method weight used: 25-30 ml/kg IBW Comments: maintenance needs Malnutrition Status: Malnutrition Present: No NUTRITION DIAGNOSIS: -Inadequate protein-energy intake related to decreased appetite as evidenced by intake less than estimated needs NUTRITION INTERVENTIONS: -Will send chocolate ensure plus high protein TID to provide 350 kcal and 20 grams of protein per serving. -Educated re: colostomy nutrition therapy with handouts from [facility]. Answered questions RECOMMENDATIONS: -Recommend supplements s/p discharge -Recommend probiotic med daily if appropriate with conditions. Noted on antibiotics GOAL(S): 75% of three full meals/day and 100% of supplements TID NUTRITION MONITORING AND EVALUATION: oral intakes, weights, labs, GI status, plan of care Pratima Steen RD, LD [facility] Clinical Dietitian [facility] Coverage: [email or web address] chat Patient touch: [phone] [place] Office: [phone] 01/19/25 2:15 PM * Myranda Roe RP - 01/19/2025 1:05 PM EDT [facility] Department of Pharmacy Pharmacy-Physician Communication Pt name: Paul Adkins Yolanda Room: Dear Dr. Chyna Sanchez MD, Paul Palmeraleksandraannie is a 74 y.o. male who qualifies for therapy route conversion. Inclusion criteria have been evaluated including: improved clinical status and ability to tolerate oral medications. Given current status, patient has been determined to be eligible for conversion. Will change existing order for famotidine 20 mg IV every 12 hours to famotidine oral at the same doseand frequency per [facility] approved policy. Thank you. If we can offer more assistance, please feel free to call us at [phone]. Myranda Roe RPH * Myranda Roe RPH - 01/19/2025 1:02 PM EDT [facility] Department of Pharmacy Pharmacy-Physician Communication Pt name: Paul Guerrero Room: Dear Dr. Chyna Sanchez MD, Paul Guerrero is a 74 y.o. male who qualifies for therapy route conversion. Inclusion criteria have been evaluated including: ability to tolerate oral medications, pt has received IV antimicrobials for 48 hours or longer, afebrile for at least 24 hours, and signs and symptoms of infection improvement. Additionally, patient does not have any of the following exclusion diagnoses: Meningitis (rifampin can be oral for synergy) Endocarditis (rifampin can be oral for synergy) Osteomyelitis Neutropenia (ANC<1000) Bacteremia, as defined by one or more positive blood cultures in the past 7 days Sepsis Given current status, patient has been determined to be eligible for conversion. Will change existing order for metronidazole 500 mg IV every 12 hours to metronidazole oral at same dose and frequencyper [facility] approved policy. Thank you. If we can offer more assistance, please feel free to call us at [phone]. Myranda Roe RPH * JOANA Sanchez - 01/19/2025 10:54 AM EDT Images from the original note were not included. Daily Progress Note ICU Patient's name: Paul Guerrero Patient's Date of : 1950 Date of Admission: 01/14/2025 3:03 PM Length of stay during current admission: 5 Primary Care Physician: NO PCP, NO PCP Code Status: Full Code POD#5 Laparotomy, LIH repair, Left orchiectomy, omentectomy, and Tracy's procedure Subjective: Overnight Events: No acute changes overnight. O2 able to be weaned to 1L. Off Cardizem and Heparin gtt. Restarted on Metoprolol and Eliquis. Afib with RVR this am when OOB. Jaimee full liquid diet. U/o 983ml RAAD 40ml serosang Colostomy 375ml Awake & following commands: [] No [x] Yes Current Ventilation Status: [] Ventilator [] BIPAP [x] Nasal Cannula 1L [] Room Air Sedation: [x] No Sedation [] Propofol gtt [] Versed gtt [] Ativan gtt [] Fentanyl gtt Diarrhea: [x] No [] Yes (C. Difficile status: [] Positive [] Negative [] Pending) Vasopressors: [x] No [] Yes If yes - [] Levophed [] Dopamine [] Vasopressin [] Dobutamine [] Phenylephrine [] Epinephrine Central lines: [x] No [] Yes (Date of Insertion: 01/14/25) Triple lumen PICC If yes - [] Right IJ [] Left IJ [] Right Femoral [] Left Femoral [] Right Subclavian [] Left Subclavian Blackwell Catheter: [] No [x] Yes (Date of Insertion: 01/14/25) Urine output: [x] Good [] Low [] Anuric Objective: Vitals: 01/19/25 1006 BP: Pulse: 83 Resp: Temp: SpO2: Temp: [36.3 ??C (97.3 ??F)-36.9 ??C (98.4 ??F)] 36.7 ??C (98.1 ??F) Pulse: [62-151] 83 Resp: [15-34] 23 BP: (89-129)/(49-77) 115/69 FiO2 (%): [45 %] 45 % SpO2: [85 %-100 %] 87 % O2 Device: Nasal cannula O2 Flow Rate (L/min): [1 L/min-6 L/min] 1 L/min No Known Allergies Intake/Output last 3 shifts: I/O last 3 completed shifts: In: 1923 [P.O.:993; I.V.:641.6; IV Piggyback:288.4] Out: 2786 [Urine:2313; Drains:73; Stool:400] Intake/Output this shift: I/O this shift: In: - Out: 195 [Urine:40; Drains:5; Stool:150] Dietary Orders (From admission, onward) Start Ordered 01/19/25 0904 Adult diet Regular Texture; Low Fiber (gastric soft) Diet effective now Question Answer Comment Diet Type: Regular Texture Other Modifiers: Low Fiber (gastric soft) 01/19/25 0903 Physical Exam General Appearance: Sitting on the side of the bed, some SOB with talking Pulmonary: Some inc WOB with exertion, poor air entry, diminished BS, scattered expiratory wheezing. Cardiac: irregularly irregular Tachy Abdomen: ND, BS+ compressible, incision well approximated. RAAD drain with serosang outpt, good liquid stool in appliance, colostomy appears well perfused. Extremity: mild edema BLE, abrasions to bilateral knees Genitalia. Scrotal edema /induration continues to improve. Skin: Dry. No rashes. Eyes: Non-icteric Incisions: Clean, dry, and intact. Lines, Drains, Tubes: RAAD, PICC, PIV x 2 Laboratory Data: Lab Results Component Value Date WBC 16.7 (H) 01/19/2025 HGB 11.2 (L) 01/19/2025 HCT 33.2 (L) 01/19/2025 MCV 93 01/19/2025 PLT 340 01/19/2025 Lab Results Component Value Date GLU 111 (H) 01/19/2025 CALCIUM 8.0 (L) 01/19/2025 K 3.9 01/19/2025 CO2 33 (H) 01/19/2025 CL 99 01/19/2025 BUN 29 (H) 01/19/2025 CREATININE 0.94 01/19/2025 No results found for: AMYLASE No results found for: LIPASE Lab Results Component Value Date ALT 28 01/19/2025 AST 18 01/19/2025 ALKPHOS 48 01/19/2025 Lab Results Component Value Date INR 1.6 (H) 01/16/2025 INR 2.1 (H) 01/12/2025 INR 1.1 07/18/2016 PROTIME 18.3 (H) 01/16/2025 PROTIME 24.7 (H) 01/12/2025 PROTIME 12.7 (H) 07/18/2016 acetaminophen, 1,000 mg, oral, Q6H RAYSA apixaban, 5 mg, oral, BID cefTRIAXone (ROCEPHIN) IV, 1,000 mg, intravenous, Q24H chlorhexidine, 15 mL, mouth/throat, BID dilTIAZem, 30 mg, oral, Q6H RAYSA famotidine, 20 mg, intravenous, Q12H melatonin, 6 mg, oral, Nightly metoprolol tartrate, 50 mg, oral, BID metroNIDAZOLE, 500 mg, intravenous, Q12H [COMPLETED] Consult PICC nurse - PICC, , , Once AND sodium chloride, 10 mL, intravenous, Q12H AND sodium chloride, 10 mL, intravenous, PRN AND sodium chloride, 20 mL, intravenous, PRN acetaminophen alum-mag hydroxide-simeth HYDROmorphone levalbuterol magnesium sulfate magnesium sulfate metoprolol (LOPRESSOR) IV ondansetron oxyCODONE oxyCODONE potassium chloride OR potassium chloride OR potassium chloride IV (Adult) sennosides-docusate sodium [COMPLETED] Consult PICC nurse - PICC AND sodium chloride AND sodium chloride AND sodium chloride Radiology: No results found. Principal Problem: Acute respiratory failure with hypoxia ([facility]) Active Problems: Paroxysmal atrial fibrillation ([facility]) Cardiomyopathy, nonischemic ([facility]) Atrial fibrillation with rapid ventricular response ([facility]) A-fib ([facility]) ELLY (acute kidney injury) Scrotal swelling Colostomy present ([facility]) Fall Traumatic rhabdomyolysis History of CVA (cerebrovascular accident) Hypotension Septic shock ([facility]) H/O unilateral orchiectomy H/O left inguinal hernia repair S/P partial resection of colon Assessment and Plan: Incarcerated LIH with contained sigmoid perforation. S/p Laparotomy , LIH repair, Omentectomy and Orchiectomy. Tracy's procedure - IV abx of Ceftriaxone and Flagyl -Asp cx E coli and strep gordonii Edith , BC (-) 2d - would benefit from ID consult - RAAD out serous -colostomy with good outpt -allow full liquids advance to soft gastri diet -transition to oral pain medications 2. Traumatic blackwell attempt -Urology place 18F coude catheter -good urine outpt, non bloody 3. Acute respiratory failure with hypotension -Off pressor support -I/S, encourage cough, PD to chest -OOB to the chair -Able to wean O2 -CXR today -Pulmonary following. 4 Afib with RVR -Rate controlled on metoprolol but afib with RVR this am. -Metoprolol given , if no improvement will give cardizem - Eliquis restarted. -Cardiology following Prophylxis EPC Pepcid Plan discussed with Dr. Maldonado - JOANA SANCHEZ 01/19/25 10:55 AM JOANA Sanchez 01/19/25 1107 Cosigned by Robert Gil MD at 01/19/2025 4:20 PM EDT * Travis Agrawal MD - 01/19/2025 9:47 AM EDT Images from the original note were not included. Pulmonary Progress Note Patient - Paul Guerrero Age - 74 y.[facility]. [facility] 1950 [id number] Date of Admission - 01/14/2025 3:03 PM Consulting Service/Physician Consulting: Consulting Providers Provider Service Specialty Laura Cobian MD -- General Surgery Travis Agrawal MD Z Pulmonology Pulmonary Disease [facility] Physician Cardiology -- Cardiology Hanane Marie MD -- Urology Primary Care Physician: NO PCP, NO PCP REASON FOR VISIT: resp failure, REVIEW OF SYMPTOMS: Cough++, unable to expectorate Denies chest pain, SOB Events since last visit : off cardizem gtt; HR increases with activity Past Medical History: Past Medical History: Diagnosis Date [place] 01/14/2025 admission Acute renal failure (ARF) occured at time of GI bleed Atrial fibrillation [place] Bluish skin discoloration CHF (congestive heart failure) [place] 2012 initial EF 15 % // last ECHO 55 % Cholecystitis Contracture of finger joint Patient had an accident on a ladder causing deformity and this eventually developed into a contracture. Patient elected not to have surgery. 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) occured at time of GI bleed Stroke [place] 06/2016 rx with TPA , Past Surgical History: Procedure Laterality Date CARDIAC CATHETERIZATION COLONOSCOPY diverticulosis / lg ingunial hernia CREATION COLOSTOMY Left 01/14/2025 Performed by Delmar Ramirez MD at [facility] ESOPHAGOGASTRODUODENOSCOPY severe errosis gastritis and duodenitis ORCHIECTOMY Left 01/14/2025 Performed by Delmar Ramirez MD at [facility] REPAIR HERNIA INGUINAL Left 01/14/2025 Performed by Delmar Ramirez MD at [facility] TONSILLECTOMY Social History: Social History Socioeconomic History Marital status: Single [...] Resource Strain: Not on file Food Insecurity: Patient Unable To Answer (01/15/2025) Hunger Screening Food Insecurity - Worry: Patient unable to answer Food Insecurity - Inability: Patient unable to answer Transportation Needs: Patient Unable To Answer (01/14/2025) PRAPARE - Transportation Lack of Transportation (Medical): Patient unable to answer Lack of Transportation (Non-Medical): Patient unable to answer Physical Activity: Not on file Stress: Not on file Social Connections: Not on file Interpersonal Safety: Patient Unable To Answer (01/14/2025) Humiliation, Afraid, Rape, and Kick questionnaire Fear of Current or Ex-Partner: Patient unable to answer Emotionally Abused: Patient unable to answer Physically Abused: Patient unable to answer Sexually Abused: Patient unable to answer Housing Instability: Patient Unable To Answer (01/14/2025) Housing Instability Housing Instability: Patient unable to answer SUBJECTIVE VITALS height is 177.8 cm (5' 10 ) and weight is 84.8 kg (186 lb 15.2 oz). His oral temperature is 36.7 ??C (98.1 ??F). His blood pressure is 115/69 and his pulse is 107. His respiration is 23 and oxygen saturation is 87% (abnormal). Temperature Range: Temp (24hrs), Av.6 ??C (97.8 ??F), Min:36.3 ??C (97.3 ??F), Max:36.9 ??C (98.4 ??F) BP Range: Systolic (24hrs), Av , Min:89 , Max:129 Pulse Range: Pulse Av.2 Min: 62 Max: 204 Respiration Range: Resp Av.4 Min: 8 Max: 34 Current Pulse Ox: Temp: 36.7 ??C (98.1 ??F) 24HR Pulse Ox Range: Temp Av.7 ??C (98.1 ??F) Min: 36.1 ??C (97 ??F) Max: 38.2 ??C (100.8 ??F) Oxygen Amount and Delivery: O2 Device: Nasal cannula O2 Flow Rate (L/min): (S) 1 L/min Wt Readings from Last 3 Encounters: 01/15/25 84.8 kg (186 lb 15.2 oz) 01/14/25 83.2 kg (183 lb 6.8 oz) 05/19/24 80.5 kg (177 lb 6.4 oz) I/O (24 Hours) Intake/Output Summary (Last 24 hours) at 01/19/2025 0947 Last data filed at 01/19/2025 0845 Gross per 24 hour Intake 1064.47 ml Output 1251 ml Net -186.53 ml Exam General Appearance - awake, alert, 1 l nc HEENT - normocephalic, atraumatic. Neck - Supple, trachea midline Lungs - Fair air entry bilaterally, breath sounds vesicular, no rhonchi, no rales or crackles Cardiovascular - Heart sounds are normal. IRRegular rate and rhythm. Rate 67 Abdomen - soft, nontender, nondistended, no masses or organomegaly Neurologic - There are no focal motor or sensory deficits Skin - no bruising or bleeding Extremities - no cyanosis, clubbing or edema Meds Current Facility-Administered Medications: acetaminophen (TYLENOL EXTRA STRENGTH) tablet 1,000 mg, 1,000 mg, oral, Q6H RAYSA, JOANA Sanchez, 1,000 mg at 01/19/25 0559 acetaminophen (TYLENOL EXTRA STRENGTH) tablet 500 mg, 500 mg, oral, Q6H PRN, PAT Ybarra alteplase (CATHFLO) injection 2 mg, 2 mg, intravenous, Once, PAT Cheng alteplase (CATHFLO) injection 2 mg, 2 mg, intravenous, Once, PAT Cheng alum-mag hydroxide-simeth (MAALOX) 200-200-20 mg/5 mL suspension 30 mL, 30 mL, oral, PCP, PAT Ybarra apixaban (ELIQUIS) tablet 5 mg, 5 mg, oral, BID, Santiago Plummer MD, 5 mg at 01/19/25 0836 cefTRIAXone (ROCEPHIN) 1,000 mg in sodium chloride 0.9 % 50 mL IVPB W/ADAPTER, 1,000 mg, intravenous, Q24H, PAT Ybarra, Stopped at 01/18/25 2110 chlorhexidine (PERIDEX) 0.12 % solution 15 mL, 15 mL, mouth/throat, BID, Travis Agrawal MD, 15 mL at01/19/25 0837 digoxin (LANOXIN) injection 250 mcg, 250 mcg, intravenous, Once, Santiago Plummer MD dilTIAZem (CARDIZEM) tablet 30 mg, 30 mg, oral, Q6H [facility], Santiago Plummer MD famotidine (PF) (PEPCID) injection 20 mg, 20 mg, intravenous, Q12H, PAT Ybarra, 20 mg at 01/19/25 0559 HYDROmorphone (PF) (DILAUDID) injection 0.5 mg, 0.5 mg, intravenous, Q3H PRN, JOANA Sanchez levalbuterol (XOPENEX) nebulizer solution 1.25 mg, 1.25 mg, nebulization, Q4H PRN, Travis Agrawal MD, 1.25 mg at 01/19/25 0406 magnesium sulfate IVPB 2000 mg/50 mL in iso-osmotic water (40 mg/mL premix), 2,000 mg, intravenous,PRN, Brenda Millan APRN-DYLAN, Stopped at 01/18/25 0804 magnesium sulfate IVPB 4000 mg/100 mL in iso-osmotic water (40 mg/mL premix), 4,000 mg, intravenous, PRN, Brenda Millan APRN-DYLAN melatonin (CIRCADIN) tablet 6 mg, 6 mg, oral, Nightly, Brenda Cummings APRN-DYLAN metoprolol (LOPRESSOR) injection 2.5 mg, 2.5 mg, intravenous, Q6H PRN, Alis Weems MD, 2.5 mgat 01/17/25 1020 metoprolol tartrate (LOPRESSOR) tablet 50 mg, 50 mg, oral, BID, Santiago Plummer MD, 50 mg at 01/19/25 0836 metroNIDAZOLE (FLAGYL) IVPB 500 mg/100 mL in iso-osmotic sodium chloride (5 mg/mL premix), 500 mg, intravenous, Q12H, PAT Ybarra, Stopped at 01/19/25 0702 ondansetron (PF) (ZOFRAN) injection 4 mg, 4 mg, intravenous, Q4H PRN, Brenda Millan APRN-DYLAN oxyCODONE (ROXICODONE) immediate release tablet 10 mg, 10 mg, oral, Q4H PRN, JOANA Sanchez oxyCODONE (ROXICODONE) immediate release tablet 5 mg, 5 mg, oral, Q4H PRN, JOANA Sanchez potassium chloride (K-TAB,KLOR-CON) CR tablet 30-50 mEq, 30-50 mEq, oral, PRN, 30 mEq at 01/19/25 0357 OR potassium chloride (KAYCIEL) 20 mEq/15 mL solution 30-50 mEq, 30-50 mEq, oral, PRN ORpotassium chloride IVPB 10 mEq/100 mL in water (0.1 mEq/mL premix), 10 mEq, intravenous, PRN, PAT Ybarra sennosides-docusate sodium (SENOKOT-S) 8.6-50 mg 1 tablet, 1 tablet, oral, Q12H PRN, PAT Ybarra [COMPLETED] Consult PICC nurse - PICC, , , Once AND sodium chloride 0.9 % flush 10 mL, 10 mL, intravenous, Q12H, 10 mL at 01/19/25 0309 AND sodium chloride 0.9 % flush 10 mL, 10 mL, intravenous, PRN AND sodium chloride 0.9 % flush 20 mL, 20 mL, intravenous, PRN, PAT Ybarra ALLERGIES: No Known Allergies Results from last 3 days Lab Units 01/19/25 0828 01/19/25 0308 01/18/25 1153 01/18/25 0428 01/17/25 0405 BUN mg/dL -- 29* -- 36* 43* CREATININE mg/dL -- 0.94 -- 0.98 1.07 POTASSIUM mmol/L 3.9 3.6 4.3 3.7 4.0 CO2 mmol/L -- 33* -- 33* 30 CHLORIDE mmol/L -- 99 -- 98 101 MAGNESIUM mg/dL -- 2.0 2.3 1.8 2.0 AST U/L -- 18 -- 24 25 ALT U/L -- 28 -- 35 38 ALK PHOS U/L -- 48 -- 60 67 Results from last 3 days Lab Units 01/16/25 1641 INR 1.6* PROTIME sec 18.3* Results from last 3 days Lab Units 01/19/25 0308 01/18/25 0428 01/17/25 0405 01/16/25 1641 WBC x10E9/L 16.7* 19.0* 18.2* -- HEMOGLOBIN g/dL 11.2* 12.0* 12.0* 11.3* HEMATOCRIT % 33.2* 36.1* 35.7* -- PLATELETS X10E9/L 340 393 377 335 MCV fL 93 95 94 -- MCH pg 31.3 31.5 31.5 -- MCHC g/dL 33.7 33.4 33.5 -- RDW % 14.1 14.5 14.6 -- MONO ABS MAN 10*3/uL 0.7 0.7 -- -- EOS ABS AUTO 10*3/uL -- -- 0.0 -- EOS ABS MAN 10*3/uL 0.2 -- -- -- Microbiology Results Procedure Component Value Units Date/Time Blood culture #1 [[id number]] Collected: 01/14/25 1328 Specimen: Blood, Venous Updated: 01/18/25 190 CULTURE RESULTS NO GROWTH 4 DAYS Blood culture #2 [[id number]] Collected: 01/14/25 1253 Specimen: Blood, Venous Updated: 01/18/25 190 CULTURE RESULTS NO GROWTH 4 DAYS Anaerobic culture [[id number]] (Abnormal) Collected: 01/14/25 1012 Specimen: Aspirate from Abdomen Updated: 01/18/25 1431 CULTURE RESULTS Many Bacteroides fragilis Many Bacteroides ovatus/xylanisolvens Aspirate culture includes gram stain [[id number]] (Abnormal) (Susceptibility) Collected: 01/14/25 1012 Specimen: Aspirate from Abdomen Updated: 01/17/25 1134 CULTURE RESULTS Rare Escherichia coli Rare Streptococcus gordonii Rare Edith utilis GRAM STAIN >25 White Blood Cells/LPF 0 Squamous Epithelial Cells/LPF Many Gram negative bacilli Many Gram positive coccobacilli Susceptibility Escherichia coli Not Specified AMP/SULBACTAM <=2.0 Susceptible Ampicillin 8.0 Susceptible Cefazolin (non-urinary) <=1.0 Susceptible Cefazolin (urinary) <=1.0 Susceptible Ceftriaxone <=0.25 Susceptible Ciprofloxacin <=0.06 Susceptible Gentamicin <=1.0 Susceptible Levofloxacin <=0.12 Susceptible PIPERACIL/TAZOBACTAM <=4.0 Susceptible Blood culture [[id number]] Collected: 01/12/25 1829 Specimen: Blood, Venous Updated: 01/17/25 2301 CULTURE RESULTS NO GROWTH 5 DAYS Blood culture [[id number]] Collected: 01/12/25 1723 Specimen: Blood, Venous Updated: 01/17/25 2301 CULTURE RESULTS NO GROWTH 5 DAYS SARS/FLU A+B/RSV by NAAT/Molecular (M4RT Collection Tube) [[id number]] (Normal) Collected: 01/12/25 1712 Specimen: Swab from Nasopharynx Updated: 01/12/25 1812 FLU A PCR Negative FLU B PCR Negative RSV BY PCR Negative SARS COV 2 BY PCR Not Detected Narrative: The Xpert Xpress SARS-CoV-2/Flu/RSV Plus test is [...] operators who are performing tests using either bodaplanes or [employer] systems and islimited to laboratories that meet [...] with specimenrepeat. Fact Sheet for Healthcare Providers: https://www.fda.gov/media/821349/download Fact Sheet for Patients: https://www.fda.gov/media/952108/download Glucose Results from last 7 days Lab Units 01/19/25 0308 01/18/25 0428 01/17/25 0405 01/16/25 0428 01/15/25 0310 01/14/25 1252 01/14/25 0425 01/13/25 0437 01/12/25 1711 GLUCOSE mg/dL 111* 126* 122* 118* 113* 130* 115* 129* 125* I/O last 3 completed shifts: In: 1923 [P.O.:993; I.V.:641.6; IV Piggyback:288.4] Out: 2786 [Urine:2313; Drains:73; Stool:400] Microbiology Results Procedure Component Value Units Date/Time Blood culture #1 [[id number]] Collected: 01/14/25 1328 Specimen: Blood, Venous Updated: 01/18/25 190 CULTURE RESULTS NO GROWTH 4 DAYS Blood culture #2 [[id number]] Collected: 01/14/25 1253 Specimen: Blood, Venous Updated: 01/18/25 190 CULTURE RESULTS NO GROWTH 4 DAYS Anaerobic culture [[id number]] (Abnormal) Collected: 01/14/25 1012 Specimen: Aspirate from Abdomen Updated: 01/18/25 1431 CULTURE RESULTS Many Bacteroides fragilis Many Bacteroides ovatus/xylanisolvens Aspirate culture includes gram stain [[id number]] (Abnormal) (Susceptibility) Collected: 01/14/25 1012 Specimen: Aspirate from Abdomen Updated: 01/17/25 1134 CULTURE RESULTS Rare Escherichia coli Rare Streptococcus gordonii Rare Edith utilis GRAM STAIN >25 White Blood Cells/LPF 0 Squamous Epithelial Cells/LPF Many Gram negative bacilli Many Gram positive coccobacilli Susceptibility Escherichia coli Not Specified AMP/SULBACTAM <=2.0 Susceptible Ampicillin 8.0 Susceptible Cefazolin (non-urinary) <=1.0 Susceptible Cefazolin (urinary) <=1.0 Susceptible Ceftriaxone <=0.25 Susceptible Ciprofloxacin <=0.06 Susceptible Gentamicin <=1.0 Susceptible Levofloxacin <=0.12 Susceptible PIPERACIL/TAZOBACTAM <=4.0 Susceptible Blood culture [[id number]] Collected: 01/12/25 1829 Specimen: Blood, Venous Updated: 01/17/25 2301 CULTURE RESULTS NO GROWTH 5 DAYS Blood culture [[id number]] Collected: 01/12/25 1723 Specimen: Blood, Venous Updated: 01/17/25 2301 CULTURE RESULTS NO GROWTH 5 DAYS SARS/FLU A+B/RSV by NAAT/Molecular (M4RT Collection Tube) [[id number]] (Normal) Collected: 01/12/25 1712 Specimen: Swab from Nasopharynx Updated: 01/12/25 1812 FLU A PCR Negative FLU B PCR Negative RSV BY PCR Negative SARS COV 2 BY PCR Not Detected Narrative: The Xpert Xpress SARS-CoV-2/Flu/RSV Plus test is [...] operators who are performing tests using either [employer] or [employer] systems and islimited to laboratories that meet [...] with specimenrepeat. Fact Sheet for Healthcare Providers: https://www.fda.gov/media/114828/download Fact Sheet for Patients: https://www.fda.gov/media/671589/download Lines/Drains PICC Triple Lumen 01/14/25 Right (Active) Precautions Standard precautions;Hand hygiene;Gloves 01/15/25 0715 Lumen 1 Vigil 08/22/25 0715 Lumen 1 Status Blood return noted;Flushed;Saline locked;Alcohol sponge cap changed 01/15/25714 Lumen 1 Needleless Cap Cap changed 01/15/25 Lumen 1 Needleless Cap Change Due 01/19/25 01/15/25 Lumen 2 Red 01/15/25714 Lumen 2 Status Blood return noted;Flushed;Infusing;Connections checked/tightened 01/15/25714 Lumen 2 Needleless Cap Initial cap placed 01/14/252006 Lumen 2 Needleless Cap Change Due 01/18/25 01/14/25 2007 Lumen 3 White 01/15/25714 Lumen 3 Status Blood return noted;Flushed;Infusing;Connections checked/tightened 01/15/25714 Lumen 3 Needleless Cap Cap changed 01/15/25 Lumen 3 Needleless Cap Change Due 01/19/25 01/15/25 0000 Length bk (cm) 1 cm 01/14/252006 Extremity Circumference (cm) 27 cm 01/14/252006 Site Assessment Clean;Dry;Intact 01/15/25714 Dressing Type Occlusive;Transparent with CHG gel 01/15/25714 Dressing Status Clean;Dry;Intact 01/15/25714 Dressing Intervention Initial dressing 01/14/252006 Line Necessity Peripherally incompatible solution 01/15/25714 Line Necessity Reviewed With PAT Ybarra 01/14/252006 Patient Tolerance of Line Care Tolerated well 01/15/25 Dressing Change Due (Non-Gauze) 01/21/25 01/14/252006 Peripheral IV 01/14/25 Left Antecubital (Active) Line Status Blood return noted;Flushed;Saline locked;Alcohol sponge cap changed 01/15/25714 Site Assessment Clean;Dry;Intact 01/15/25714 Dressing Type Occlusive;Transparent 01/15/25714 Dressing Status Clean;Dry;Intact 01/15/25714 Dressing Intervention Initial dressing 01/15/25714 Dressing Change Due (Non-Gauze) 01/22/25 01/15/25714 Peripheral IV 01/14/25 Right Hand (Active) Line Status Blood return noted;Flushed;Infusing;Connections checked/tightened 01/15/25714 Site Assessment Clean;Dry;Intact 08/22/25 0715 Dressing Type Occlusive;Transparent 01/15/25 0715 Dressing Status Clean;Dry;Intact 01/15/25 0715 Dressing Intervention Initial dressing 01/15/25 0715 Dressing Change Due (Non-Gauze) 01/22/25 01/15/25 0715 Closed/Suction Drain 01/14/25 1 Anterior;Left Other (Comment) Bulb (Active) Drain/Tube Status To bulb suction 01/15/25 0715 Drain Securement Sutured 01/15/25 07 Dressing Type Gauze 01/15/25 0715 Dressing Status Clean;Dry;Intact 01/15/25 07 Drainage Appearance Bloody 01/15/25 0715 Output (mL) 40 mL 01/15/25 0715 NG/OG Tube 01/14/25 Orogastric Mouth (Active) Placement Verification Gastric content 01/15/25 07 Status Suction-low intermittent 01/15/25714 Site Assessment Clean;Dry;Intact 01/15/2515 Secured at (cm) 65 cm 01/15/2515 Securement Method Adhesive tape 01/15/25714 Dressing Status/Interventions Clean;Dry;Intact 01/15/25 07 Drainage Appearance Bile 01/15/25 0715 Feeding? (Yes or No) No 01/15/25 07 Colostomy 01/14/25 LLQ (Active) Stomal Appliance 1 piece 01/15/25 07 Site Assessment Clean;Intact 01/15/25 07 Peristomal Assessment Clean;Intact 01/15/25 0715 Stool Color Red 01/14/25 1515 Output (mL) 0 mL 01/15/25 0715 Urinary Catheter 01/14/25 Coude (Active) Catheter Status Patent 01/15/25 07 Site Assessment Clean;Skin intact 01/15/25 0715 Collection Container Standard drainage bag/container 01/15/25 0715 Securement Method Right 01/15/25 0715 Tamper Evident Seal Intact No 01/15/25 0715 Indication for Continuation Strict I&O in critically ill patient 01/15/25 0715 Urine Color Yellow/straw 01/15/25 0715 Urine Appearance Clear 01/15/25 0715 Output (mL) 110 mL 01/15/25 0715 Bladder Instillation? No 01/15/25 0715 ETT 01/14/25 Cuffed Oral (Active) Secured at (cm) 23 cm 01/15/2518 Measured from Gums 01/15/25 08 Secured Location Center 01/15/25817 Secured by Commercial tube campa 01/15/25817 Subglottic Port Yes 01/15/25817 Bite Block Yes 01/15/25817 Cuff Pressure (cm H2O) 30 cm H2O 01/15/25817 Site Condition Cool;Dry 01/15/25817 Subglottic Secretions Scant;Thin;Clear 01/15/25817 Subglottic Suction Frequency Intermittent suction 01/15/25817 Arterial Line 01/14/25 Right Radial (Active) Line Status Infusing;Pulsatile blood flow 01/15/25714 Line Interventions Leveled;Connections checked and tightened;Pressure bag maintained;Armboard 01/15/25714 Waveform Appropriate 01/15/25714 Site Assessment Clean;Dry;Intact 01/15/25714 Dressing Type Occlusive;Transparent with CHG gel 01/15/25714 Dressing Status Clean;Dry;Intact 01/15/25714 Dressing Intervention Initial dressing 01/15/25714 Color/Movement/Sensation Capillary refill less than 3 sec 01/15/25 07 Patient Tolerance of Line Care Tolerated well 01/15/25 07 Line Necessity Invasive hemodynamic monitoring 01/15/25714 Line Necessity Reviewed With RN 01/14/25 152 Dressing Change Due (Non-Gauze) 01/21/25 01/14/25 1525 X-ray chest 1 view Result Date: 01/17/2025 CLINICAL INFORMATION: Shortness of breath COMPARISON: Chest radiograph dated 01/16/2025. VIEWS: 1. FINDINGS: Interval worsening with large left basilar infiltrate and atelectasis. Probable moderate left pleural effusion. Cardiac and mediastinal shadows are normal. No pneumothorax. No free air below the diaphragm. IMPRESSION: Interval worsening with large left basilar infiltrate and atelectasis. Probable moderate left pleural effusion. Finalized by Ellen Angelo MD on 01/17/2025 12:10 PM X-ray chest 1 view Result Date: 01/16/2025 Single view chest History: SOB. Chest pain. Comparison: 01/15/2025 Findings: Single portable view ofthe chest. Interval extubation. Right-sided PICC line in unchanged position. Cardiac silhouette is stable. New small left-sided pleural effusion with bibasilar atelectasis and mild interstitial edema. Impression: 1. New small left-sided pleural effusion with bibasilar atelectasis. 2. Interval extubation. Finalized by Suhas Arellano MD on 01/16/2025 10:20 AM Echo complete W/O contrast Result Date: 01/14/2025 Left Ventricle: Left ventricle appears normal in size. There is mild asymmetric increased wall thickness/hypertrophy. Systolic function is normal with an ejection fraction of 55-60%. The quantitativeEF by 2D Mitchell biplane is 61%. No obvious regional wall motion abnormalities. Unable to assess diastolic function due to atrial fibrillation/flutter. Right Ventricle: Right ventricular size appearsnormal. The right ventricular basal diameter is 36.0 mm. Normal systolic excursion velocity by TDI (>9.5 cm/s). Tricuspid Valve: There is moderate regurgitation. There is no evidence of tricuspid valve stenosis. There is moderate pulmonary hypertension. Mitral Valve: The leaflets are moderately t hickened. There is mild annular calcification. There is moderate regurgitation with a centrally directed jet. There is no evidence of mitral valve stenosis. ASSESSMENT / PLAN: Acute hypoxic resp failure Extubated 01/15/25 O2 HFNC - wean as tolerated CXR 01/19/25 Hypotension - resolved leukocytosis Post op - 01/14/25 - repair of incarcerated inguinal hernia, colon resection, colostomy, orchiectomy A fib RVR Cardizem gtt - stopped 01/18/25 lopressor oral . * Santiago Plummer MD - 01/19/2025 8:28 AM EDT Images from the original note were not included. [facility] [address] [place] [address] PROGRESS NOTE Paul Guerrero denies any chest pain. Pt appears short of breath with conversations. Pt just got up and went into atrial fibrillation with RVR. Pt has only been receiving his home metoprolol 50 mg. Cardizem has been on hold due to intermittent bradycardia with mild hypotension with systolic in the 90s. SUBJECTIVE Allergies: No Known Allergies CURRENT MEDICATIONS acetaminophen, 1,000 mg, oral, Q6H RAYSA apixaban, 5 mg, oral, BID cefTRIAXone (ROCEPHIN) IV, 1,000 mg, intravenous, Q24H chlorhexidine, 15 mL, mouth/throat, BID dilTIAZem, 30 mg, oral, Q8H RAYSA famotidine, 20 mg, intravenous, Q12H melatonin, 6 mg, oral, Nightly metoprolol tartrate, 50 mg, oral, BID metroNIDAZOLE, 500 mg, intravenous, Q12H [COMPLETED] Consult PICC nurse - PICC, , , Once AND sodium chloride, 10 mL, intravenous, Q12H AND sodium chloride, 10 mL, intravenous, PRN AND sodium chloride, 20 mL, intravenous, PRN CONTINUOUS INFUSIONS Review of Systems: Cardiovascular: No chest pain, dyspnea on exertion, palpitations or loss of consciousness. No cough, hemoptysis, pleuritic pain, or phlebitis. Respiratory: positive SOB Neurological: No headache, diplopia, change in muscle strength, numbness or tingling. No change in gait, balance, coordination, mood, affect, memory, mentation, behavior. Hematologic/Lymphatic: No abnormal bruising or bleeding, blood clots or swollen lymph nodes. OBJECTIVE CBC: Results from last 7 days Lab Units 01/19/25 0308 01/18/25 0428 01/17/25 0405 WBC x10E9/L 16.7* 19.0* 18.2* HEMOGLOBIN g/dL 11.2* 12.0* 12.0* HEMATOCRIT % 33.2* 36.1* 35.7* MCV fL 93 95 94 PLATELETS X10E9/L 340 393 377 BMP: Results from last 7 days Lab Units 01/19/25 0308 01/18/25 1153 01/18/25 0428 01/17/25 0405 SODIUM mmol/L 139 -- 141 141 POTASSIUM mmol/L 3.6 4.3 3.7 4.0 CHLORIDE mmol/L 99 -- 98 101 CO2 mmol/L 33* -- 33* 30 BUN mg/dL 29* -- 36* 43* CREATININE mg/dL 0.94 -- 0.98 1.07 CALCIUM mg/dL 8.0* -- 8.4* 8.6 MAGNESIUM mg/dL 2.0 2.3 1.8 2.0 PT/INR: Results from last 7 days Lab Units 01/16/25 1641 01/12/25 1711 PROTIME sec 18.3* 24.7* INR 1.6* 2.1* APTT: MAG: Results from last 7 days Lab Units 01/19/25 0308 01/18/25 1153 01/18/25 0428 MAGNESIUM mg/dL 2.0 2.3 1.8 D Dimer: Results from last 7 [...] Date HGBA1C 6.3 (H) 09/04/2012 ABG: CV TESTING HISTORY: ECHO: Echo complete W/O contrast Result Date: 01/14/2025 Left Ventricle: Left ventricle appears normal in size. There is mild asymmetric increased wall thickness/hypertrophy. Systolic function is normal with an ejection fraction of 55-60%. The quantitativeEF by 2D Mitchell biplane is 61%. No obvious regional wall motion abnormalities. Unable to assess diastolic function due to atrial fibrillation/flutter. Right Ventricle: Right ventricular size appearsnormal. The right ventricular basal diameter is 36.0 mm. Normal systolic excursion velocity by TDI (>9.5 cm/s). Tricuspid Valve: There is moderate regurgitation. There is no evidence of tricuspid valve stenosis.There is moderate pulmonary hypertension. Mitral Valve: The leaflets are moderately thickened. There is mild annular calcification. There is moderate regurgitation with a centrally directed jet. There is no evidence of mitral valve stenosis. CXR: X-ray chest 1 view Result Date: 01/17/2025 CLINICAL INFORMATION: Shortness of breath COMPARISON: Chest radiograph dated 01/16/2025. VIEWS: 1. FINDINGS: Interval worsening with large left basilar infiltrate and atelectasis. Probable moderate left pleural effusion. Cardiac and mediastinal shadows are normal. No pneumothorax. No free air below the diaphragm. IMPRESSION: Interval worsening with large left basilar infiltrate and atelectasis. Probable moderate left pleural effusion. Finalized by Ellen Angelo MD on 01/17/2025 12:10 PM TELEMETRY: [facility] PHYSICAL EXAM Admission Weight: Weight: 83.2 kg (183 lb 6.8 oz) I/O last 3 completed shifts: In: 1923 [P.O.:993; I.V.:641.6; IV Piggyback:288.4] Out: 2786 [Urine:2313; Drains:73; Stool:400] Weight change: Wt Readings from Last 3 Encounters: 01/15/25 84.8 kg (186 lb 15.2 oz) 01/14/25 83.2 kg (183 lb 6.8 oz) 05/19/24 80.5 kg (177 lb 6.4 oz) Vitals: Vitals: 01/19/25 0600 01/19/25 0615 01/19/25 0630 01/19/25 0817 BP: 98/68 98/62 116/71 Pulse: 102 99 96 (!) 123 Resp: (!) 26 (!) 27 24 (!) 31 Temp: 36.7 ??C (98.1 ??F) TempSrc: Oral SpO2: 95% 93% 92% 92% Weight: Height: Admit Weight Weight: 83.2 kg (183 lb 6.8 oz) Last 3 Weights Last 3 Weight Readings 01/14/25 1524 01/15/25 0500 Weight: 83.2 kg (183 lb 6.8 oz) 84.8 kg (186 lb 15.2 oz) Body mass index is 26.82 kg/m??. INTAKE/OUTPUT I/O last 3 completed shifts: In: 1923 [P.O.:993; I.V.:641.6; IV Piggyback:288.4] Out: 2786 [Urine:2313; Drains:73; Stool:400] Intake/Output Summary (Last 24 hours) at 01/19/2025 0828 Last data filed at 01/19/2025 0602 Gross per 24 hour Intake 1275.47 ml Output 1336 ml Net -60.53 ml General appearance: Alert oriented and cooperative, In no acute distress Skin: Warm and dry to touch Head: Normocephalic, without obvious abnormality, atraumatic Eyes: Conjunctivae unremarkable, EOM's intact, sclera non icteric Lungs: Clear to ausculation bilaterally, no use of accessory muscles Heart:: irregularly irregular, no murmurs and no gallops. Extremities: mild BLE Neurologic: Oriented to time, person and place, affect appropriate, no focal/major motor or sensorydefects noted Psychiatric: Appropriate mood, memory and judgment ASSESSMENT Paroxysmal Atrial Fibrillation [id number] at least 6 (CHF, HTN, Age, CVA x2, Vasc Dz) NICMP with improved LVEF Nonobstructive Coronary Artery Disease Mechanical Fall Rhabdomyolysis Hx of CVA with lytic therapy Incarcerated Hernia Bowel Peforation sp laparotomy PAD ELLY PLAN Eliquis has johan resumed. Give morning metoprolol now. In an hour if still in RVR given oral cardizem. NICHOLAS REYNA PA-C 01/19/25 0834 ATTENDING: Santiago Antoine MD, personally performed the face to face diagnostic evaluation on this patient. I have reviewed the CESARIO's history, exam, and MDM and agree with the assessment and plan as written. My findings are as follows: At the time of my rounds, patient is in atrial fibrillation with controlled ventricular rate [id number] beats per minute while resting in ICU bed comfortably with blood pressure 109/64. Nurse at bedside told me that patient received medications as ordered with holding parameters. I gave IV digoxin 0.25 mg this morning for better ventricular rate control without influencing low blood pressures as documented. Awake and alert. CVS irregularly regular. No S3 gallop. Labs and meds were reviewed. ASSESSMENT: Paroxysmal atrial fibrillation with RVR at times- on chronic Eliquis therapy at home which he is currently on hold since admission. Normal left ventricular systolic function on 2D echocardiogram December 2024. Moderate mitral regurgitation, moderate tricuspid regurgitation, moderate pulmonary hypertension 2Dechocardiogram December 2024. History of nonischemic cardiomyopathy with recovered LV ejection fraction. Nonobstructive coronary artery disease on cardiac catheterization 2012. Postoperative state with left inguinal hernia repair, left orchiectomy, omentectomy, Jed's procedure January 14, 2025. History of CVA, status post lytic therapy. Other problems as documented. RECOMMENDATION/PLAN: As ordered. Improving slowly with the better controlled ventricular rate at rest and with rapid ventricular rate with ambulation as documented. Continue on current medications as ordered along with continued supportive care. Discussed with the ICU nurse at bedside at the time of my rounds. Will follow. Santiago Plummer MD, [facility] This note was completed using a voice armature inspector system. Every effort was made to ensure accuracy. However, inadvertent computerized armature inspector errors may be present. * Myranda Redman - 01/19/2025 8:12 AM EDT Images from the original note were not included. [facility] [address] [place] [address] PROGRESS NOTE Paul Guerrero is sitting up in a chair and stable from a cardiovascular standpoint. Remains in Afib; on PO Diltiazem 30 mg. Last night after patient received Metoprolol, HR dropped [id number] and SBP in 90s; held Diltiazem. Denies chest pain, palpitations, lightheadedness, pre-syncope or syncope. Continues to report shortness of breath, but is overall improving slightly with breathing treatments and use of incentive spirometer. Experienced bilateral leg swelling last night due to sitting in a chair, but has since resolved by this morning. No family member at bedside. SUBJECTIVE Allergies: No Known Allergies CURRENT MEDICATIONS acetaminophen, 1,000 mg, oral, Q6H RAYSA apixaban, 5 mg, oral, BID cefTRIAXone (ROCEPHIN) IV, 1,000 mg, intravenous, Q24H chlorhexidine, 15 mL, mouth/throat, BID dilTIAZem, 30 mg, oral, Q8H RAYSA famotidine, 20 mg, intravenous, Q12H melatonin, 6 mg, oral, Nightly metoprolol tartrate, 50 mg, oral, BID metroNIDAZOLE, 500 mg, intravenous, Q12H [COMPLETED] Consult PICC nurse - PICC, , , Once AND sodium chloride, 10 mL, intravenous, Q12H AND sodium chloride, 10 mL, intravenous, PRN AND sodium chloride, 20 mL, intravenous, PRN CONTINUOUS INFUSIONS Review of Systems: Cardiovascular: No chest pain, dyspnea on exertion, palpitations or loss of consciousness. No cough, hemoptysis, pleuritic pain, or phlebitis. Respiratory: No cough or wheezing, no sputum production, no hematemesis. Neurological: No headache, diplopia, change in muscle strength, numbness or tingling. No change in gait, balance, coordination, mood, affect, memory, mentation, behavior. Hematologic/Lymphatic: No abnormal bruising or bleeding, blood clots or swollen lymph nodes. OBJECTIVE CBC: Results from last 7 days Lab Units 01/19/25 0308 01/18/25 0428 01/17/25 0405 WBC x10E9/L 16.7* 19.0* 18.2* HEMOGLOBIN g/dL 11.2* 12.0* 12.0* HEMATOCRIT % 33.2* 36.1* 35.7* MCV fL 93 95 94 PLATELETS X10E9/L 340 393 377 BMP: Results from last 7 days Lab Units 01/19/25 0308 01/18/25 1153 01/18/25 0428 01/17/25 0405 SODIUM mmol/L 139 -- 141 141 POTASSIUM mmol/L 3.6 4.3 3.7 4.0 CHLORIDE mmol/L 99 -- 98 101 CO2 mmol/L 33* -- 33* 30 BUN mg/dL 29* -- 36* 43* CREATININE mg/dL 0.94 -- 0.98 1.07 CALCIUM mg/dL 8.0* -- 8.4* 8.6 MAGNESIUM mg/dL 2.0 2.3 1.8 2.0 PT/INR: Results from last 7 days Lab Units 01/16/25 1641 01/12/25 1711 PROTIME sec 18.3* 24.7* INR 1.6* 2.1* APTT: MAG: Results from last 7 days Lab Units 01/19/25 0308 01/18/25 1153 01/18/25 0428 MAGNESIUM mg/dL 2.0 2.3 1.8 D Dimer: Results from last 7 [...] Date HGBA1C 6.3 (H) 09/04/2012 ABG: CV TESTING HISTORY: ECHO: Echo complete W/O contrast Result Date: 01/14/2025 Left Ventricle: Left ventricle appears normal in size. There is mild asymmetric increased wall thickness/hypertrophy. Systolic function is normal with an ejection fraction of 55-60%. The quantitativeEF by 2D Mitchell biplane is 61%. No obvious regional wall motion abnormalities. Unable to assess diastolic function due to atrial fibrillation/flutter. Right Ventricle: Right ventricular size appearsnormal. The right ventricular basal diameter is 36.0 mm. Normal systolic excursion velocity by TDI (>9.5 cm/s). Tricuspid Valve: There is moderate regurgitation. There is no evidence of tricuspid valve stenosis. There is moderate pulmonary hypertension. Mitral Valve: The leaflets are moderately t hickened. There is mild annular calcification. There is moderate regurgitation with a centrally directed jet. There is no evidence of mitral valve stenosis. STRESS: No results found. HOLTER: No results found. CARDIAC CATH: No results found. CAROTID: No results found. CXR: X-ray chest 1 view Result Date: 01/17/2025 CLINICAL INFORMATION: Shortness of breath COMPARISON: Chest radiograph dated 01/16/2025. VIEWS: 1. FINDINGS: Interval worsening with large left basilar infiltrate and atelectasis. Probable moderate left pleural effusion. Cardiac and mediastinal shadows are normal. No pneumothorax. No free air below the diaphragm. IMPRESSION: Interval worsening with large left basilar infiltrate and atelectasis. Probable moderate left pleural effusion. Finalized by Ellen Angelo MD on 01/17/2025 12:10 PM X-ray chest 1 view Result Date: 01/16/2025 Single view chest History: SOB. Chest pain. Comparison: 01/15/2025 Findings: Single portable view ofthe chest. Interval extubation. Right-sided PICC line in unchanged position. Cardiac silhouette is stable. New small left-sided pleural effusion with bibasilar atelectasis and mild interstitial edema. Impression: 1. New small left-sided pleural effusion with bibasilar atelectasis. 2. Interval extubation. Finalized by Suhas Arellano MD on 01/16/2025 10:20 AM X-ray chest 1 view Result Date: 01/15/2025 XR CHEST 1 VW Clinical Information: resp failure Comparison: 01/14/2025. IMPRESSION: * Unchanged lines and tubes. * Minimal basilar atelectasis, trace left effusion. * Cardiomegaly. Finalized by Jeb Luciano MD on 01/15/2025 7:50 AM X-ray chest 1 view Result Date: 01/14/2025 History: PICC line placement Technique: A portable single frontal view of the chest was obtained. Comparison: 01/14/2025 at 106. Findings: There is a PICC line approaching from the right with its tip this. Vena cava. An endotracheal tube is seen with its tip approximate 6.4 cm above the mellisa. An enteric tube is seen with its tip in the stomach however its side port is at the level of the gastroesophageal junction, retracted slightly since the previous examination. Advancement further the stomach is recommended. There is no evidence for active cardiovascular or pulmonary disease. Impression: * Right-sided PICC line has its tip in the superior vena cava * The enteric tube has retracted slightly since the previous examination and its side-port is now at the level the gastroesophageal junction * Endotracheal tube in place with its tip above the mellisa. Finalized by Reynaldo Decker MD on 01/14/2025 8:57 PM X-ray chest 1 view Result Date: 01/14/2025 XR CHEST 1 VW History: Postop. Check lines and tubes One view study. Comparison: 01/13/2025 Impression: * Gastric drainage tube has been placed. The side-port is near the EG junction. For more optimalpositioning please advance 5 cm. ET tube is visualized. The tip terminates just above the aortic knob. This is satisfactory in position. No other concerning change. No evidence of aspiration. No pneumothorax. No large effusion. Finalized by Marry Villareal MD on 01/14/2025 2:20 PM X-ray chest 1 view Result Date: [...] Bryon Boucher MD on 01/12/2025 7:21 PM TELEMETRY: Irregularly irregular PHYSICAL EXAM Admission Weight: Weight: 83.2 kg (183 lb 6.8 oz) I/O last 3 completed shifts: In: 1923 [P.O.:993; I.V.:641.6; IV Piggyback:288.4] Out: 2786 [Urine:2313; Drains:73; Stool:400] Weight change: Wt Readings from Last 3 Encounters: 01/15/25 84.8 kg (186 lb 15.2 oz) 01/14/25 83.2 kg (183 lb 6.8 oz) 05/19/24 80.5 kg (177 lb 6.4 oz) Vitals: Vitals: 01/19/25 0530 01/19/25 0600 01/19/25 0615 01/19/25 0630 BP: 98/68 98/68 98/62 Pulse: 91 102 99 96 Resp: 17 (!) 26 (!) 27 24 Temp: TempSrc: SpO2: 92% 95% 93% 92% Weight: Height: Admit Weight Weight: 83.2 kg (183 lb 6.8 oz) Last 3 Weights Last 3 Weight Readings 01/14/25 1524 01/15/25 0500 Weight: 83.2 kg (183 lb 6.8 oz) 84.8 kg (186 lb 15.2 oz) Body mass index is 26.82 kg/m??. INTAKE/OUTPUT I/O last 3 completed shifts: In: 1923 [P.O.:993; I.V.:641.6; IV Piggyback:288.4] Out: 2786 [Urine:2313; Drains:73; Stool:400] Intake/Output Summary (Last 24 hours) at 01/19/2025 0812 Last data filed at 01/19/2025 0602 Gross per 24 hour Intake 1275.47 ml Output 1336 ml Net -60.53 ml General appearance: Alert oriented and cooperative, In no acute distress Skin: Warm and dry to touch Head: Normocephalic, without obvious abnormality, atraumatic Eyes: Conjunctivae unremarkable, EOM's intact, sclera non icteric Neck: No JVD, no carotid bruit, neck supple, trachea midline Lungs: Clear to ausculation bilaterally, no use of accessory muscles Heart:: Irregularly irregular with normal S1 and S2, no murmurs and no gallops. Abdomen: Soft, non-tender, bowel sounds normal. Extremities: No edema Neurologic: Oriented to time, person and place, affect appropriate, no focal/major motor or sensorydefects noted Psychiatric: Appropriate mood, memory and judgment ASSESSMENT Paroxysmal atrial fibrillation with RVR on home Eliquis NICM with recovered EF 61% TTE 01/14/2025 Mod MR, mod TR Nonobstructive CAD [facility] 2013 Mechanical fall-> rhabdomyolysis Hx CVA s/p lytic therapy Incarcerated hernia/bowel perf s/p laparotomy 01/14/25 PAD Acute kidney injury PLAN Paroxysmal atrial fibrillation - Patient in Afib when seen, asymptomatic. HR in 100s, systolic blood pressure in the 90s-100s. - Discontinue Metoprolol 50 mg BID - Continue PO Diltiazem 30 mg TID for rate control - Continue Eliquis 5 mg BID Myranda Redman This note was completed using a voice armature inspector system. Every effort was made to ensure accuracy. However, inadvertent computerized armature inspector errors may be present. Cosigned by Sher Martinez PA-C at 01/19/2025 8:28 AM EDT Associated attestation - Sher Martinez PA-C - 01/19/2025 8:28 AM EDT Disclaimer: This note is intended for educational purposes only. It does not constitute a patient visit and is not to be used or relied on for treatment, billing, or any other purposes. It has been created solely to enable the student to practice documentation to achieve the expected level of competency in charting and receive feedback regarding same. This note is not a part of the legal medical record. * Chyna Sanchez MD - 01/19/2025 6:44 AM EDT Images from the original note were not included. [facility] INTER[facility] [id number] [facility] [id number] Hospital Medicine Progress Note Patient: Paul Guerrero Date of : 1950 Room: PCP: NO PCP, NO PCP Admission date: 01/14/2025 3:03 PM Encounter date: 01/19/25 Hospital Day: 6 SUBJECTIVE Interval History: Status: unchanged. No overnight events. Patient was seen and examined at the bedside No signs of acute distress noted at this time No chest pain or dizziness Currently on 1 L of oxygen via nasal cannula Required 1 time dose of digoxin this a.m. Okay to transfer out of the unit Review of Systems Constitutional: Negative for activity change, appetite change, chills, fatigue, fever and unexpected weight change. HENT: Negative for congestion, dental problem, hearing loss, rhinorrhea, sore throat, trouble swallowing and voice change. Eyes: Negative for visual disturbance. Respiratory: Negative for cough, shortness of breath and wheezing. Cardiovascular: Negative for chest pain, palpitations and leg swelling. Gastrointestinal: Negative for abdominal pain, blood in stool, constipation, diarrhea, nausea and vomiting. Genitourinary: Negative for difficulty urinating, dysuria, enuresis, frequency and hematuria. Musculoskeletal: Negative for arthralgias, joint swelling and myalgias. Skin: Negative for color change, rash and wound. Neurological: Positive for weakness. Negative for dizziness, seizures, syncope, speech difficulty, numbness and headaches. Hematological: Negative for adenopathy. Does not bruise/bleed easily. Psychiatric/Behavioral: Negative for dysphoric mood and sleep disturbance. The patient is not nervous/anxious. All other systems reviewed and are negative. OBJECTIVE BP 98/62 Pulse 96 Temp 36.9 ??C (98.4 ??F) (Oral) Resp 24 Ht 177.8 cm (5' 10 ) Wt 84.8 kg(186 lb 15.2 oz) SpO2 92% BMI 26.82 kg/m?? Temp: [36.3 ??C (97.3 ??F)-36.9 ??C (98.4 ??F)] 36.9 ??C (98.4 ??F) Pulse: [62-109] 96 Resp: [15-34] 24 BP: (89-136)/(49-77) 98/62 FiO2 (%): [45 %] 45 % SpO2: [85 %-100 %] 92 % O2 Device: Nasal cannula O2 Flow Rate (L/min): [1 L/min-6 L/min] 1 L/min Intake/Output Summary (Last 24 hours) at 01/19/2025 0644 Last data filed at 01/19/2025 0602 Gross per 24 hour Intake 1750.79 ml Output 1336 ml Net 414.79 ml Physical Exam Vitals and nursing note reviewed. Constitutional: General: He is not in acute distress. Appearance: Normal appearance. He is well-developed. HENT: Head: Normocephalic and atraumatic. Right Ear: External ear normal. Left Ear: External ear normal. Nose: Nose normal. Right Sinus: No maxillary sinus tenderness or frontal sinus tenderness. Left Sinus: No maxillary sinus tenderness or frontal sinus tenderness. Mouth/Throat: Lips: [place]. Mouth: Mucous membranes are moist. Pharynx: Oropharynx is clear. Eyes: General: No scleral icterus. Extraocular Movements: Extraocular movements intact. Pupils: Pupils are equal, round, and reactive to light. Neck: Vascular: No carotid bruit or JVD. Cardiovascular: Rate and Rhythm: Normal rate. Rhythm irregular. Pulses: Radial pulses are 2+ on the right side and 2+ on the left side. Heart sounds: Normal heart sounds, S1 normal and S2 normal. No murmur heard. No friction rub. No gallop. Pulmonary: Effort: Pulmonary effort is normal. Breath sounds: Normal breath sounds. No decreased air movement. No decreased breath sounds, wheezing, rhonchi or rales. Abdominal: General: Bowel sounds are normal. Palpations: Abdomen is soft. Tenderness: There is no abdominal tenderness. Comments: Colostomy in place Musculoskeletal: Cervical back: Full passive range of motion without pain. Right lower leg: No edema. Left lower leg: No edema. Skin: General: Skin is warm and dry. Capillary Refill: Capillary refill takes less than 2 seconds. Coloration: Skin is pale. Findings: Bruising present. No erythema, rash or wound. Neurological: Motor: No weakness. Medications Scheduled: acetaminophen, 1,000 mg, oral, Q6H RAYSA apixaban, 5 mg, oral, BID cefTRIAXone (ROCEPHIN) IV, 1,000 mg, intravenous, Q24H chlorhexidine, 15 mL, mouth/throat, BID dilTIAZem, 30 mg, oral, Q8H RAYSA famotidine, 20 mg, intravenous, Q12H melatonin, 6 mg, oral, Nightly metoprolol tartrate, 50 mg, oral, BID metroNIDAZOLE, 500 mg, intravenous, Q12H [COMPLETED] Consult PICC nurse - PICC, , , Once AND sodium chloride, 10 mL, intravenous, Q12H AND sodium chloride, 10 mL, intravenous, PRN AND sodium chloride, 20 mL, intravenous, PRN Infusions: As Needed: acetaminophen alum-mag hydroxide-simeth HYDROmorphone levalbuterol magnesium sulfate magnesium sulfate metoprolol (LOPRESSOR) IV ondansetron oxyCODONE oxyCODONE potassium chloride OR potassium chloride OR potassium chloride IV (Adult) sennosides-docusate sodium [COMPLETED] Consult PICC nurse - PICC AND sodium chloride AND sodium chloride AND sodium chloride Allergies: Patient has no known allergies. Code Status: Full Code Labs Recent Results (from the past 24 hours) Anti XA unfractionated heparin Collection Time: 01/18/25 11:53 AM Result Value Ref Range ANTI XA UFH 0.32 0.30 - 0.70 IU/mL Magnesium Collection Time: 01/18/25 11:53 AM Result Value Ref Range MAGNESIUM 2.3 1.8 - 2.6 mg/dL Potassium Collection Time: 01/18/25 11:53 AM Result Value Ref Range POTASSIUM 4.3 3.5 - 5.0 mmol/L Comprehensive metabolic panel Collection Time: 01/19/25 3:08 AM Result Value Ref Range SODIUM 139 134 - 146 mmol/L POTASSIUM 3.6 3.5 - 5.0 mmol/L CHLORIDE 99 98 - 109 mmol/L CARBON DIOXIDE 33 (H) 22 - 32 mmol/L ANION GAP 7 5 - 15 mmol/L BLOOD UREA NITROGEN 29 (H) 5 - 27 mg/dL CREATININE 0.94 0.70 - 1.20 mg/dL GLUCOSE 111 (H) 65 - 99 mg/dL CALCIUM 8.0 (L) 8.5 - 10.5 mg/dL TOTAL PROTEIN 5.1 (L) 6.0 - 8.0 g/dL ALBUMIN 2.4 (L) 3.2 - 5.3 g/dL ALKALINE PHOSPHATASE 48 39 - 130 U/L AST 18 <=41 U/L ALT 28 <=40 U/L BILIRUBIN,TOTAL 0.5 0.3 - 1.2 mg/dL EGFR Non-Race Dependent 86 >=60 ml/min/1.73sq.m Magnesium Collection Time: 01/19/25 3:08 AM Result Value Ref Range MAGNESIUM 2.0 1.8 - 2.6 mg/dL CBC auto differential Collection Time: 01/19/25 3:08 AM Result Value Ref Range WBC 16.7 (H) 4 - 11 x10E9/L RBC Count 3.58 (L) 4.1 - 5.7 X10E12/L Hemoglobin 11.2 (L) 13 - 17 g/dL Hematocrit 33.2 (L) 39 - 50 % MCV 93 80 - 100 fL MCH 31.3 27 - 34 pg MCHC 33.7 32 - 36 g/dL RDW 14.1 11.5 - 15 % Platelet Count 340 150 - 450 X10E9/L MPV 7.7 7 - 12 fL Metamyelocytes % 1 % Bands % 2 % Neutrophils % 87 % Lymphocytes % 5 % Monocytes % 4 % Eosinophils % 1 % Neutrophils Absolute (M) 14.8 (H) 1.5 - 6.6 10*3/uL Lymphocytes Absolute 0.8 (L) 1.0 - 3.5 10*3/uL Monocytes Absolute 0.7 0.0 - 0.9 10*3/uL Eosinophils Absolute 0.2 0.0 - 0.4 10*3/uL RBC Morphology Normal Differential Type MANUAL DIFFERENTIAL Radiology No results found. HOSPITAL PROBLEM LIST Principal Problem: Acute respiratory failure with hypoxia ([facility]) Active Problems: Paroxysmal atrial fibrillation ([facility]) Cardiomyopathy, nonischemic ([facility]) Atrial fibrillation with rapid ventricular response ([facility]) A-fib ([facility]) ELLY (acute kidney injury) Scrotal swelling Colostomy present ([facility]) Fall Traumatic rhabdomyolysis History of CVA (cerebrovascular accident) Hypotension Septic shock ([facility]) H/O unilateral orchiectomy H/O left inguinal hernia repair S/P partial resection of colon ASSESSMENT & PLAN Acute respiratory failure with hypoxia Hypotension Patient remains intubated postop Transferred to [facility] from [place] Pulmonology consulted Extubated 01/15 Now on 6 L HFNC Starting high flow Off levophed Scrotal swelling Incarcerated hernia Colostomy creation General surgery following OR at [place] 01/[address] James Lanier/Lydia for intraabdominal coverage POD#4 Laparotomy, LIH repair, Left orchiectomy, omentectomy, and Tracy's procedure Acute kidney injury Traumatic rhabdomyolysis Trend CK/Myoglobin daily Creatinine normalized Traumatic blackwell insertion Urology consulted Dr. Stevenson with Urology was spoke to at [facility] Requested no Blackwell insertion attempts until Urology can see patient Blackwell placed with urology 01/14 with urology Paroxysmal atrial fibrillation Remains on Cardizem drip continue to wean Started on Cardizem 30 mg tid discontinued today Started on PO Cardizem 180 q.day On Eliquis and metoprolol at home Continue heparin drip discontinued DC planning: currently on 1 L NC DC planning: home. Medically Ready for Discharge: Anticipated Tomorrow PAT Cheng 01/19/2025 6:44 AM Jamieedicadwoa Sharma [facility] Internal Medicine 7AM-7PM & 7PM-7AM: EpicChat or page through On-Call [employer]. PAT Cheng 01/19/[address] Chyna Sanchez, personally performed a face to face diagnostic evaluation on this patient. I have reviewed the note authored by the advance practice provider including history, review of systems, physical examination, medical decision making and agree with the assessment and plan as written. I have seen and evaluated the patient,I have repeated the wood portions of the physical exam and concur with the CESARIO findings.I have reviewed all laboratory findings and imaging reprts/films.I agree with the plan as noted. * Santiago Plummer MD - 01/18/2025 3:01 PM EDT Elena Sharma Cardiology Progress Note 01/18/2025 3:01 PM Subjective: Mr. Guerrero is feeling better and denies any anginal chest pain or worsening shortnessof breath or palpitations or lightheadedness or dizziness. Review of symptoms: No fever. No headaches. On clear liquid diet, per nurse's report. Nurse also updated orders by hospitalist service regarding switching over from IV Cardene drip to oral diltiazem. I am seeing for the 1st time this admission. Reviewed my colleagues notes from 01/18/2025 in the EHR as documented. LABS: Recent Results (from the past 24 hours) Comprehensive metabolic panel Collection Time: 01/18/25 4:28 AM Result Value Ref Range SODIUM 141 134 - 146 mmol/L POTASSIUM 3.7 3.5 - 5.0 mmol/L CHLORIDE 98 98 - 109 mmol/L CARBON DIOXIDE 33 (H) 22 - 32 mmol/L ANION GAP 10 5 - 15 mmol/L BLOOD UREA NITROGEN 36 (H) 5 - 27 mg/dL CREATININE 0.98 0.70 - 1.20 mg/dL GLUCOSE 126 (H) 65 - 99 mg/dL CALCIUM 8.4 (L) 8.5 - 10.5 mg/dL TOTAL PROTEIN 5.5 (L) 6.0 - 8.0 g/dL ALBUMIN 2.5 (L) 3.2 - 5.3 g/dL ALKALINE PHOSPHATASE 60 39 - 130 U/L AST 24 <=41 U/L ALT 35 <=40 U/L BILIRUBIN,TOTAL 0.6 0.3 - 1.2 mg/dL EGFR Non-Race Dependent 81 >=60 ml/min/1.73sq.m Magnesium Collection Time: 01/18/25 4:28 AM Result Value Ref Range MAGNESIUM 1.8 1.8 - 2.6 mg/dL CBC auto differential Collection Time: 01/18/25 4:28 AM Result Value Ref Range WBC 19.0 (H) 4 - 11 x10E9/L RBC Count 3.82 (L) 4.1 - 5.7 X10E12/L Hemoglobin 12.0 (L) 13 - 17 g/dL Hematocrit 36.1 (L) 39 - 50 % MCV 95 80 - 100 fL MCH 31.5 27 - 34 pg MCHC 33.4 32 - 36 g/dL RDW 14.5 11.5 - 15 % Platelet Count 393 150 - 450 X10E9/L MPV 8.2 7 - 12 fL Myelocyte % 1 % Bands % 2 % Neutrophils % 85 % Lymphocytes % 9 % Monocytes % 4 % Neutrophils Absolute (M) 16.5 (H) 1.5 - 6.6 10*3/uL Lymphocytes Absolute 1.6 1.0 - 3.5 10*3/uL Monocytes Absolute 0.7 0.0 - 0.9 10*3/uL RBC Morphology Normal Differential Type CELLAVISION DIFFERENTIAL Anti XA unfractionated heparin Collection Time: 01/18/25 4:28 AM Result Value Ref Range ANTI XA UFH 0.24 (L) 0.30 - 0.70 IU/mL Anti XA unfractionated heparin Collection Time: 01/18/25 11:53 AM Result Value Ref Range ANTI XA UFH 0.32 0.30 - 0.70 IU/mL Magnesium Collection Time: 01/18/25 11:53 AM Result Value Ref Range MAGNESIUM 2.3 1.8 - 2.6 mg/dL Potassium Collection Time: 01/18/25 11:53 AM Result Value Ref Range POTASSIUM 4.3 3.5 - 5.0 mmol/L Pulse Ox: SpO2 Av.5 % Min: 87 % Max: 100 % Supplemental O2: O2 Flow Rate (L/min): 6 L/min Current Meds: acetaminophen, 1,000 mg, oral, Q6H RAYSA cefTRIAXone (ROCEPHIN) IV, 1,000 mg, intravenous, Q24H chlorhexidine, 15 mL, mouth/throat, BID dilTIAZem, 30 mg, oral, Q8H RAYSA famotidine, 20 mg, intravenous, Q12H metoprolol tartrate, 50 mg, oral, BID metroNIDAZOLE, 500 mg, intravenous, Q12H [COMPLETED] Consult PICC nurse - PICC, , , Once AND sodium chloride, 10 mL, intravenous, Q12H AND sodium chloride, 10 mL, intravenous, PRN AND sodium chloride, 20 mL, intravenous, PRN Continuous Infusions: diltiazem, 2.5-15 mg/hr heparin, 300-3,500 Units/hr, Last Rate: 1,100 Units/hr (01/18/25 0722) VITAL SIGNS: BP 111/66 Pulse 94 Temp 36.3 ??C (97.3 ??F) (Oral) Resp (!) 26 Ht 177.8 cm (5' 10 ) Wt 84.8 kg (186 lb 15.2 oz) SpO2 96% BMI 26.82 kg/m?? 6 L/min Admit Weight: 83.2 kg (183 lb 6.8 oz) Last 3 weights: Wt Readings from Last 3 Encounters: 01/15/25 84.8 kg (186 lb 15.2 oz) 01/14/25 83.2 kg (183 lb 6.8 oz) 05/19/24 80.5 kg (177 lb 6.4 oz) BMI: Body mass index is 26.82 kg/m??. INPUT/OUTPUT: Intake/Output Summary (Last 24 hours) at 01/18/2025 1501 Last data filed at 01/18/2025 1435 Gross per 24 hour Intake 1070.66 ml Output 3348 ml Net -2277.34 ml Telemetry shows Atrial fibrillation with ventricular rate around 90-100 range at the time of my rounds in ICU. EXAM: General appearance: Awake, alert, oriented. Sitting up in bedside chair in ICU comfortably and in no acute distress. In good spirits. Pleasant. Neck: No JVD. Chest: fair air entry bilaterally. No tenderness. No wheezing. Cardiac: irregularly irregular rate and rhythm.S3 gallop or rubs. Abdomen: postoperative state. Extremities: No leg edema. Neuro: Able to move all 4 extremities. Skin: Warm and dry. LABS: CBC: Lab Results Component Value Date WBC 19.0 (H) 01/18/2025 HGB 12.0 (L) 01/18/2025 HCT 36.1 (L) 01/18/2025 MCV 95 01/18/2025 PLT 393 01/18/2025 BMP: Lab Results Component Value Date GLU 126 (H) 01/18/2025 CALCIUM 8.4 (L) 01/18/2025 K 4.3 01/18/2025 CO2 33 (H) 01/18/2025 BUN 36 (H) 01/18/2025 CREATININE 0.98 01/18/2025 PT/INR: Lab Results Component Value Date INR 1.6 (H) 01/16/2025 INR 2.1 (H) 01/12/2025 INR 1.1 07/18/2016 PROTIME 18.3 (H) 01/16/2025 PROTIME 24.7 (H) 01/12/2025 PROTIME 12.7 (H) 07/18/2016 D Dimer: Results from last 7 days Lab Units 01/12/25 1711 D DIMER ug/mL 259* 2D echocardiogram January 13, 2025: Left Ventricle: Left ventricle appears normal in size. There is mild asymmetric increased wall thickness/hypertrophy. Systolic function is normal with an ejection fraction of 55-60%. The quantitativeEF by 2D Mitchell biplane is 61%. No obvious regional wall motion abnormalities. Unable to assess diastolic function due to atrial fibrillation/flutter. Right Ventricle: Right ventricular size appears normal. The right ventricular basal diameter is 36.0 mm. Normal systolic excursion velocity by TDI (>9.5 cm/s). Tricuspid Valve: There is moderate regurgitation. There is no evidence of tricuspid valve stenosis.There is moderate pulmonary hypertension. Mitral Valve: The leaflets are moderately thickened. There is mild annular calcification. There is moderate regurgitation with a centrally directed jet. There is no evidence of mitral valve stenosis. ASSESSMENT: Paroxysmal atrial fibrillation with RVR at times- on chronic Eliquis therapy at home which he is currently on hold since admission. Normal left ventricular systolic function on 2D echocardiogram December 2024. Moderate mitral regurgitation, moderate tricuspid regurgitation, moderate pulmonary hypertension 2Dechocardiogram December 2024. History of nonischemic cardiomyopathy with recovered LV ejection fraction. Nonobstructive coronary artery disease on cardiac catheterization 2012. Postoperative state with left inguinal hernia repair, left orchiectomy, omentectomy, Jed's procedure January 14, 2025. History of CVA, status post lytic therapy. Other problems as documented. RECOMMENDATION/PLAN: As ordered. Improving clinically and stable overall cardiac-bradshaw. Agree with discontinuation of IV Cardene drip and adjustment of oral cardiac medications Including starting on metoprolol 50 mg twice daily, diltiazem 30 mg Q [address] holding parameters as ordered. Will discontinue IV heparin drip and will switch it over to Eliquis 5 mg twice daily, if okay with surgeon and other providers following - for chronic thromboembolic prophylactic measures. Okay to transfer out of ICU to step-down telemetric monitoring bed from cardiac standpoint and if okay with other providers. Discussed with the ICU nurse at bedside at the time of my rounds. No family members available at bedside to discuss. Will follow. Santiago Plummer MD, [facility] PLEASE NOTE: This progress note was completed using a voice armature inspector system. Every effort was made to ensure accuracy. However, inadvertent computerized armature inspector errors may be present. * JOANA Sanchez - 01/18/2025 11:40 AM EDT Images from the original note were not included. Daily Progress Note ICU Patient's name: Paul Guerrero Patient's Date of : 1950 Date of Admission: 01/14/2025 3:03 PM Length of stay during current admission: 4 Primary Care Physician: NO PCP, NO PCP Code Status: Full Code POD#4 Laparotomy, LIH repair, Left orchiectomy, omentectomy, and Tracy's procedure Subjective: Overnight Events: No acute changes overnight. Jaimee clears, no N/V. Colostomy functioning. O2 weaned to 8LHFNC , CXR with bilat atelectasis and left pleural effusion. Working on I/S . Continues on Cardizem and heparin gtt. U/o 3L RAAD 10ml serosang Colostomy 150ml Awake & following commands: [] No [x] Yes Current Ventilation Status: [] Ventilator [] BIPAP [x] Nasal Cannula 8L [] Room Air Sedation: [x] No Sedation [] Propofol gtt [] Versed gtt [] Ativan gtt [] Fentanyl gtt Diarrhea: [x] No [] Yes (C. Difficile status: [] Positive [] Negative [] Pending) Vasopressors: [x] No [] Yes If yes - [] Levophed [] Dopamine [] Vasopressin [] Dobutamine [] Phenylephrine [] Epinephrine Central lines: [x] No [] Yes (Date of Insertion: 01/14/25) Triple lumen PICC If yes - [] Right IJ [] Left IJ [] Right Femoral [] Left Femoral [] Right Subclavian [] Left Subclavian Blackwell Catheter: [] No [x] Yes (Date of Insertion: 01/14/25) Urine output: [x] Good [] Low [] Anuric Objective: Vitals: 01/18/25 0959 BP: 126/67 Pulse: 67 Resp: 24 Temp: SpO2: 93% Temp: [36.4 ??C (97.5 ??F)-36.9 ??C (98.4 ??F)] 36.4 ??C (97.5 ??F) Pulse: [67-120] 67 Resp: [18-33] 24 BP: (100-159)/(56-102) 126/67 FiO2 (%): [48 %-90 %] 48 % SpO2: [85 %-100 %] 93 % O2 Device: Nasal cannula O2 Flow Rate (L/min): [6 L/min-40 L/min] 6 L/min No Known Allergies Intake/Output last 3 shifts: I/O last 3 completed shifts: In: 1145.5 [I.V.:553.8; IV Piggyback:591.8] Out: 5595 [Urine:5375; Drains:70; Stool:150] Intake/Output this shift: I/O this shift: In: 736.5 [P.O.:211; I.V.:375.7; IV Piggyback:149.8] Out: 380 [Urine:275; Drains:5; Stool:100] Dietary Orders (From admission, onward) Start Ordered 01/18/25732 Adult diet Full Liquid Diet effective now Question: Diet Type: Answer: Full Liquid 01/18/25732 Physical Exam General Appearance: Awake, Alert & Oriented x3, No Acute Distress Pulmonary: Labored breathing, some dyspnea with talking. Diminished BS throughout, no obvious crackles Cardiac: Irregular rate and rhythm. Tachy, Nl S1 and S2 Abdomen: ND, BS +, compressible, Midline and left inguinal incisions well approximated. LLQ RAAD serous drainage . Colostomy well perfused, + stool in appliance Extremity: No edema bilateral lower extremities, warm and well perfused, bilat knee abrasions Genitalia. Scrotal edema /induration continues to improve. Skin: Dry. No rashes. Eyes: Non-icteric Incisions: Clean, dry, and intact. Lines, Drains, Tubes: RAAD, PICC, PIV x 2 Laboratory Data: Lab Results Component Value Date WBC 19.0 (H) 01/18/2025 HGB 12.0 (L) 01/18/2025 HCT 36.1 (L) 01/18/2025 MCV 95 01/18/2025 PLT 393 01/18/2025 Lab Results Component Value Date GLU 126 (H) 01/18/2025 CALCIUM 8.4 (L) 01/18/2025 K 3.7 01/18/2025 CO2 33 (H) 01/18/2025 CL 98 01/18/2025 BUN 36 (H) 01/18/2025 CREATININE 0.98 01/18/2025 No results found for: AMYLASE No results found for: LIPASE Lab Results Component Value Date ALT 35 01/18/2025 AST 24 01/18/2025 ALKPHOS 60 01/18/2025 Lab Results Component Value Date INR 1.6 (H) 01/16/2025 INR 2.1 (H) 01/12/2025 INR 1.1 07/18/2016 PROTIME 18.3 (H) 01/16/2025 PROTIME 24.7 (H) 01/12/2025 PROTIME 12.7 (H) 07/18/2016 acetaminophen, 1,000 mg, oral, Q6H RAYSA cefTRIAXone (ROCEPHIN) IV, 1,000 mg, intravenous, Q24H chlorhexidine, 15 mL, mouth/throat, BID famotidine, 20 mg, intravenous, Q12H metoprolol tartrate, 50 mg, oral, BID metroNIDAZOLE, 500 mg, intravenous, Q12H [COMPLETED] Consult PICC nurse - PICC, , , Once AND sodium chloride, 10 mL, intravenous, Q12H AND sodium chloride, 10 mL, intravenous, PRN AND sodium chloride, 20 mL, intravenous, PRN acetaminophen alum-mag hydroxide-simeth heparin (porcine) HYDROmorphone levalbuterol magnesium sulfate magnesium sulfate metoprolol (LOPRESSOR) IV ondansetron oxyCODONE oxyCODONE potassium chloride OR potassium chloride OR potassium chloride IV (Adult) sennosides-docusate sodium [COMPLETED] Consult PICC nurse - PICC AND sodium chloride AND sodium chloride AND sodium chloride Radiology: X-ray chest 1 view Result Date: 01/17/2025 CLINICAL INFORMATION: Shortness of breath COMPARISON: Chest radiograph dated 01/16/2025. VIEWS: 1. FINDINGS: Interval worsening with large left basilar infiltrate and atelectasis. Probable moderate left pleural effusion. Cardiac and mediastinal shadows are normal. No pneumothorax. No free air below the diaphragm. IMPRESSION: Interval worsening with large left basilar infiltrate and atelectasis. Probable moderate left pleural effusion. Finalized by Ellen Angelo MD on 01/17/2025 12:10 PM Principal Problem: Acute respiratory failure with hypoxia (CMS-HCC) Active Problems: Paroxysmal atrial fibrillation (CMS-HCC) Cardiomyopathy, nonischemic (CMS-HCC) Atrial fibrillation with rapid ventricular response (CMS-HCC) A-fib (CMS-HCC) ELLY (acute kidney injury) Scrotal swelling Colostomy present (CMS-HCC) Fall Traumatic rhabdomyolysis History of CVA (cerebrovascular accident) Hypotension Septic shock (CMS-HCC) H/O unilateral orchiectomy H/O left inguinal hernia repair S/P partial resection of colon Assessment and Plan: Incarcerated LIH with contained sigmoid perforation. S/p Laparotomy , LIH repair, Omentectomy and Orchiectomy. Tracy's procedure - IV abx of Ceftriaxone and Flagyl -Asp cx E coli and strep gordonii Edith , BC (-) 2d - would benefit from ID consult - RAAD out serous -colostomy with good outpt -allow full liquids advance to soft gastri diet -transition to oral pain medications 2. Traumatic blackwell attempt -Urology place 18F coude catheter -good urine outpt, non bloody 3. Acute respiratory failure with hypotension -Off pressor support -Resp status with escalating O2 requirements -I/S, encourage cough, PD to chest -OOB to the chair -May need further diuresis -Pulmonary following. 4 Afib with RVR -Rate controlled on Cardizem gtt -Heparin gtt -Cardiology following Prophylxis EPC Pepcid Plan discussed with Dr. Maldonado - JOANA SANCHEZ 01/18/25 11:41 AM JOANA Sanchez 01/18/25 1159 Cosigned by Robert Gil MD at 01/18/2025 12:41 PM EDT * Travis Agrawal MD - 01/18/2025 10:10 AM EDT Images from the original note were not included. Pulmonary Progress Note Patient - Paul Guerrero Age - 74 y.o. - 1950 [facility] # - [id number] Date of Admission - 01/14/2025 3:03 PM Consulting Service/Physician Consulting: Consulting Providers Provider Service Specialty Laura Cobian MD -- General Surgery Travis Agrawal MD Z Pulmonology Pulmonary Disease [facility] -- Cardiology Hanane Marie MD -- Urology Primary Care Physician: NO PCP, NO PCP REASON FOR VISIT: resp failure, REVIEW OF SYMPTOMS: Cough++, unable to expectorate Denies chest pain, SOB Events since last visit : period of low sat earlier Past Medical History: Past Medical History: [place] [place] admission Acute renal failure (ARF) occured at time of GI bleed Atrial fibrillation [place] [place] Bluish skin discoloration CHF [place]congestive heart failure) [place] [place] 2012 initial EF 15 % // last ECHO 55 % Cholecystitis Contracture of finger joint Patient had an accident on a ladder causing deformity and this eventually developed into a contracture. Patient elected not to have surgery. 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 / [facility] / Dr Bruce/ CTA Occult blood in stools abn fit test Peptic ulceration GI bleed Pneumonia Respiratory [place] [place] occured at time of GI bleed Stroke [place] [place] 06/2016 rx with TPA , Past Surgical History: Procedure Laterality Date CARDIAC CATHETERIZATION COLONOSCOPY diverticulosis / lg ingunial hernia CREATION COLOSTOMY Left 01/14/2025 Performed by Delmar Ramirez MD at [facility] ESOPHAGOGASTRODUODENOSCOPY severe errosis gastritis and duodenitis ORCHIECTOMY Left 01/14/2025 Performed by Delmar Ramirez MD at [facility] REPAIR HERNIA INGUINAL Left 01/14/2025 Performed by Delmar Ramirez MD at [facility] TONSILLECTOMY Social History: Social History Socioeconomic History Marital status: Single [...] Resource Strain: Not on file Food Insecurity: Patient Unable To Answer (01/15/2025) Hunger Screening Food Insecurity - Worry: Patient unable to answer Food Insecurity - Inability: Patient unable to answer Transportation Needs: Patient Unable To Answer (01/14/2025) PRAPARE - Transportation Lack of Transportation (Medical): Patient unable to answer Lack of Transportation (Non-Medical): Patient unable to answer Physical Activity: Not on file Stress: Not on file Social Connections: Not on file Interpersonal Safety: Patient Unable To Answer (01/14/2025) Humiliation, Afraid, Rape, and Kick questionnaire Fear of Current or Ex-Partner: Patient unable to answer Emotionally Abused: Patient unable to answer Physically Abused: Patient unable to answer Sexually Abused: Patient unable to answer Housing Instability: Patient Unable To Answer (01/14/2025) Housing Instability Housing Instability: Patient unable to answer SUBJECTIVE VITALS height is 177.8 cm (5' 10 ) and weight is 84.8 kg (186 lb 15.2 oz). His oral temperature is 36.4 ??C (97.5 ??F). His blood pressure is 126/67 and his pulse is 67. His respiration is 24 and oxygen saturation is 93%. Temperature Range: Temp (24hrs), Av.6 ??C (97.9 ??F), Min:36.4 ??C (97.5 ??F), Max:36.9 ??C (98.4 ??F) BP Range: Systolic (24hrs), Av , Min:100 , Max:159 Pulse Range: Pulse Av.6 Min: 67 Max: 204 Respiration Range: Resp Av Min: 8 Max: 33 Current Pulse Ox: Temp: 36.4 ??C (97.5 ??F) 24HR Pulse Ox Range: Temp Av.7 ??C (98.1 ??F) Min: 36.1 ??C (97 ??F) Max: 38.2 ??C (100.8 ??F) Oxygen Amount and Delivery: O2 Device: Nasal cannula O2 Flow Rate (L/min): 6 L/min Wt Readings from Last 3 Encounters: 01/15/25 84.8 kg (186 lb 15.2 oz) 01/14/25 83.2 kg (183 lb 6.8 oz) 05/19/24 80.5 kg (177 lb 6.4 oz) I/O (24 Hours) Intake/Output Summary (Last 24 hours) at 01/18/2025 1155 Last data filed at 01/18/2025 1017 Gross per 24 hour Intake 1175.3 ml Output 4180 ml Net -3004.7 ml Exam Cardizem gtt General Appearance - awake, alert, 6 l nc HEENT - normocephalic, atraumatic. Neck - Supple, trachea midline Lungs - Fair air entry bilaterally, breath sounds vesicular, no rhonchi, no rales or crackles Cardiovascular - Heart sounds are normal. IRRegular rate and rhythm. Rate 67 Abdomen - soft, nontender, nondistended, no masses or organomegaly Neurologic - There are no focal motor or sensory deficits Skin - no bruising or bleeding Extremities - no cyanosis, clubbing or edema Meds Current Facility-Administered Medications: acetaminophen (TYLENOL EXTRA STRENGTH) tablet 1,000 mg, 1,000 mg, oral, Q6H [facility], JOANA Sanchez, 1,000 mg at 01/18/25 0604 acetaminophen (TYLENOL EXTRA STRENGTH) tablet 500 mg, 500 mg, oral, Q6H PRN, PAT Ybarra alum-mag hydroxide-simeth (MAALOX) 200-200-20 mg/5 mL suspension 30 mL, 30 mL, oral, PCHSP, PAT Ybarra cefTRIAXone (ROCEPHIN) 1,000 mg in sodium chloride 0.9 % 50 mL IVPB W/ADAPTER, 1,000 mg, intravenous, Q24H, PAT Ybarra, Stopped at 01/17/252055 chlorhexidine (PERIDEX) 0.12 % solution 15 mL, 15 mL, mouth/throat, BID, Travis Agrawal MD, 15 mL at01/18/25 0921 dilTIAZem (CARDIZEM) 100 mg in sodium chloride 0.9 % 100 mL (1 mg/mL) infusion- AV, 2.5-20 mg/hr, intravenous, Continuous, Lanny Evans MD, Last Rate: 4 mL/hr at 01/18/25 1017, 4 mg/hr at 017 famotidine (PF) (PEPCID) injection 20 mg, 20 mg, intravenous, Q12H, Brenda Millan APRN-DYLAN, 20 mg at 01/18/25 0604 heparin (porcine) injection 2,000 Units, 2,000 Units, intravenous, PRN, Brenda Millan APRN-DYLAN heparin infusion 25809 units/500 mL in 0.45% NaCl (50 units/mL premix), 300- 3,500 Units/hr, intravenous, Continuous, PAT Ybarra, Last Rate: 22 mL/hr at 01/18/25 0722, 1,100 Units/hr at01/18/25 0722 HYDROmorphone (PF) (DILAUDID) injection 0.5 mg, 0.5 mg, intravenous, Q3H PRN, JOANA Sanchez levalbuterol (XOPENEX) nebulizer solution 1.25 mg, 1.25 mg, nebulization, Q4H PRN, Travis Agrawal MD, 1.25 mg at 01/17/25 1009 magnesium sulfate IVPB 2000 mg/50 mL in iso-osmotic water (40 mg/mL premix), 2,000 mg, intravenous,PRN, Brenda Millan APRN-DYLAN, Stopped at 01/18/25 0804 magnesium sulfate IVPB 4000 mg/100 mL in iso-osmotic water (40 mg/mL premix), 4,000 mg, intravenous, PRN, Brenda Millan APRN-DYLAN metoprolol (LOPRESSOR) injection 2.5 mg, 2.5 mg, intravenous, Q6H PRN, Alis Weems MD, 2.5 mgat 01/17/25 1020 metoprolol tartrate (LOPRESSOR) tablet 50 mg, 50 mg, oral, BID, Javad Horvath MD, 50 mg at 01/18/25 0921 metroNIDAZOLE (FLAGYL) IVPB 500 mg/100 mL in iso-osmotic sodium chloride (5 mg/mL premix), 500 mg, intravenous, Q12H, PAT Ybarra, Stopped at 01/18/25 0702 ondansetron (PF) (ZOFRAN) injection 4 mg, 4 mg, intravenous, Q4H PRN, PAT Ybarra oxyCODONE (ROXICODONE) immediate release tablet 10 mg, 10 mg, oral, Q4H PRN, JOANA Sanchez oxyCODONE (ROXICODONE) immediate release tablet 5 mg, 5 mg, oral, Q4H PRN, JOANA Sanchez potassium chloride (K-TAB,KLOR-CON) CR tablet 30-50 mEq, 30-50 mEq, oral, PRN, 30 mEq at 01/18/25 0604 OR potassium chloride (KAYCIEL) 20 mEq/15 mL solution 30-50 mEq, 30-50 mEq, oral, PRN ORpotassium chloride IVPB 10 mEq/100 mL in water (0.1 mEq/mL premix), 10 mEq, intravenous, PRN, PAT Ybarra sennosides-docusate sodium (SENOKOT-S) 8.6-50 mg 1 tablet, 1 tablet, oral, Q12H PRN, PAT Ybarra [COMPLETED] Consult PICC nurse - PICC, , , Once AND sodium chloride 0.9 % flush 10 mL, 10 mL, intravenous, Q12H, 10 mL at 01/18/25 0922 AND sodium chloride 0.9 % flush 10 mL, 10 mL, intravenous, PRN AND sodium chloride 0.9 % flush 20 mL, 20 mL, intravenous, PRN, PAT Ybarra ALLERGIES: No Known Allergies Results from last 3 days Lab Units 01/18/25 0428 01/17/25 0405 01/16/25 0428 BUN mg/dL 36* 43* 47* CREATININE mg/dL 0.98 1.07 1.30* POTASSIUM mmol/L 3.7 4.0 4.6 CO2 mmol/L 33* 30 26 CHLORIDE mmol/L 98 101 105 MAGNESIUM mg/dL 1.8 2.0 2.2 AST U/L 24 25 28 ALT U/L 35 38 35 ALK PHOS U/L 60 67 482* Results from last 3 days Lab Units 01/16/25 1641 INR 1.6* PROTIME sec 18.3* Results from last 3 days Lab Units 01/18/25 0428 01/17/25 0405 01/16/25 1641 01/16/25 0428 WBC x10E9/L 19.0* 18.2* -- 16.6* HEMOGLOBIN g/dL 12.0* 12.0* 11.3* 10.5* HEMATOCRIT % 36.1* 35.7* -- 31.8* PLATELETS X10E9/L 393 377 335 301 MCV fL 95 94 -- 94 MCH pg 31.5 31.5 -- 31.0 MCHC g/dL 33.4 33.5 -- 32.9 RDW % 14.5 14.6 -- 14.3 MONO ABS MAN 10*3/uL 0.7 -- -- -- EOS ABS AUTO 10*3/uL -- 0.0 -- 0.0 Microbiology Results Procedure Component Value Units Date/Time Blood culture #1 [[id number]] Collected: 01/14/25 1328 Specimen: Blood, Venous Updated: 01/17/25 190 CULTURE RESULTS NO GROWTH 3 DAYS Blood culture #2 [[id number]] Collected: 01/14/25 1253 Specimen: Blood, Venous Updated: 01/17/25 1901 CULTURE RESULTS NO GROWTH 3 DAYS Anaerobic culture [[id number]] (Abnormal) Collected: 01/14/25 1012 Specimen: Aspirate from Abdomen Updated: 01/17/25 1055 CULTURE RESULTS Many Bacteroides fragilis Many Bacteroides ovatus/xylanisolvens Aspirate culture includes gram stain [[id number]] (Abnormal) (Susceptibility) Collected: 01/14/25 1012 Specimen: Aspirate from Abdomen Updated: 01/17/25 1134 CULTURE RESULTS Rare Escherichia coli Rare Streptococcus gordonii Rare Edith utilis GRAM STAIN >25 White Blood Cells/LPF 0 Squamous Epithelial Cells/LPF Many Gram negative bacilli Many Gram positive coccobacilli Susceptibility Escherichia coli Not Specified AMP/SULBACTAM <=2.0 Susceptible Ampicillin 8.0 Susceptible Cefazolin (non-urinary) <=1.0 Susceptible Cefazolin (urinary) <=1.0 Susceptible Ceftriaxone <=0.25 Susceptible Ciprofloxacin <=0.06 Susceptible Gentamicin <=1.0 Susceptible Levofloxacin <=0.12 Susceptible PIPERACIL/TAZOBACTAM <=4.0 Susceptible Blood culture [[id number]] Collected: 01/12/25 1829 Specimen: Blood, Venous Updated: 01/17/25 2301 CULTURE RESULTS NO GROWTH 5 DAYS Blood culture [[id number]] Collected: 01/12/25 1723 Specimen: Blood, Venous Updated: 01/17/25 2301 CULTURE RESULTS NO GROWTH 5 DAYS SARS/FLU A+B/RSV by NAAT/Molecular (M4RT Collection Tube) [[id number]] (Normal) Collected: 01/12/25 1712 Specimen: Swab from Nasopharynx Updated: 01/12/25 1812 FLU A PCR Negative FLU B PCR Negative RSV BY PCR Negative SARS COV 2 BY PCR Not Detected Narrative: The Xpert Xpress SARS-CoV-2/Flu/RSV Plus test is [...] operators who are performing tests using either [employer] or [employer] systems and islimited to laboratories that meet [...] influenza A, influenza B and RSV infection andshould not be used as the sole basis for treatment or other patient management decisions. Negative results must be combined with clinical observations, patient history and epidemiological information. An Invalid result may occur with specimen-associated inhibition unable to be resolved with specimen repeat. Fact Sheet for Healthcare Providers: https://www.fda.gov/media/366225/download Fact Sheet for Patients: https://www.fda.gov/media/445032/download Glucose Results from last 7 days Lab Units 01/18/25 0428 01/17/25 0405 01/16/25 0428 01/15/25 0310 01/14/25 1252 01/14/25 0425 01/13/25 0437 01/12/25 1711 GLUCOSE mg/dL 126* 122* 118* 113* 130* 115* 129* 125* I/O last 3 completed shifts: In: 1145.5 [I.V.:553.8; IV Piggyback:591.8] Out: 5595 [Urine:5375; Drains:70; Stool:150] Microbiology Results Procedure Component Value Units Date/Time Blood culture #1 [[id number]] Collected: 01/14/25 1328 Specimen: Blood, Venous Updated: 01/17/25 1901 CULTURE RESULTS NO GROWTH 3 DAYS Blood culture #2 [[id number]] Collected: 01/14/25 1253 Specimen: Blood, Venous Updated: 01/17/25 1901 CULTURE RESULTS NO GROWTH 3 DAYS Anaerobic culture [[id number]] (Abnormal) Collected: 01/14/25 1012 Specimen: Aspirate from Abdomen Updated: 01/17/25 1055 CULTURE RESULTS Many Bacteroides fragilis Many Bacteroides ovatus/xylanisolvens Aspirate culture includes gram stain [[id number]] (Abnormal) (Susceptibility) Collected: 01/14/25 1012 Specimen: Aspirate from Abdomen Updated: 01/17/25 1134 CULTURE RESULTS Rare Escherichia coli Rare Streptococcus gordonii Rare Edith utilis GRAM STAIN >25 White Blood Cells/LPF 0 Squamous Epithelial Cells/LPF Many Gram negative bacilli Many Gram positive coccobacilli Susceptibility Escherichia coli Not Specified AMP/SULBACTAM <=2.0 Susceptible Ampicillin 8.0 Susceptible Cefazolin (non-urinary) <=1.0 Susceptible Cefazolin (urinary) <=1.0 Susceptible Ceftriaxone <=0.25 Susceptible Ciprofloxacin <=0.06 Susceptible Gentamicin <=1.0 Susceptible Levofloxacin <=0.12 Susceptible PIPERACIL/TAZOBACTAM <=4.0 Susceptible Blood culture [[id number]] Collected: 01/12/25 1829 Specimen: Blood, Venous Updated: 01/17/25 2301 CULTURE RESULTS NO GROWTH 5 DAYS Blood culture [[id number]] Collected: 01/12/25 1723 Specimen: Blood, Venous Updated: 01/17/25 2301 CULTURE RESULTS NO GROWTH 5 DAYS SARS/FLU A+B/RSV by NAAT/Molecular (M4RT Collection Tube) [[id number]] (Normal) Collected: 01/12/25 1712 Specimen: Swab from Nasopharynx Updated: 01/12/25 1812 FLU A PCR Negative FLU B PCR Negative RSV BY PCR Negative SARS COV 2 BY PCR Not Detected Narrative: The Xpert Xpress SARS-CoV-2/Flu/RSV Plus test is [...] operators who are performing tests using either bodaplanes or [employer] systems and islimited to laboratories that meet [...] with specimenrepeat. Fact Sheet for Healthcare Providers: https://www.fda.gov/media/244337/download Fact Sheet for Patients: https://www.fda.gov/media/844922/download Lines/Drains PICC Triple Lumen 01/14/25 Right (Active) Precautions Standard precautions;Hand hygiene;Gloves 01/15/25714 Lumen 1 Vigil 01/15/25714 Lumen 1 Status Blood return noted;Flushed;Saline locked;Alcohol sponge cap changed 01/15/25714 Lumen 1 Needleless Cap Cap changed 01/15/25 0000 Lumen 1 Needleless Cap Change Due 01/19/25 01/15/25 0000 Lumen 2 Red 01/15/25714 Lumen 2 Status Blood return noted;Flushed;Infusing;Connections checked/tightened 01/15/25714 Lumen 2 Needleless Cap Initial cap placed 01/14/252006 Lumen 2 Needleless Cap Change Due 01/18/25 01/14/252006 Lumen 3 White 01/15/25714 Lumen 3 Status Blood return noted;Flushed;Infusing;Connections checked/tightened 01/15/25714 Lumen 3 Needleless Cap Cap changed 01/15/25 0000 Lumen 3 Needleless Cap Change Due 01/19/25 01/15/25 0000 Length bk (cm) 1 cm 01/14/252006 Extremity Circumference (cm) 27 cm 01/14/252006 Site Assessment Clean;Dry;Intact 01/15/25714 Dressing Type Occlusive;Transparent with CHG gel 01/15/25714 Dressing Status Clean;Dry;Intact 01/15/25714 Dressing Intervention Initial dressing 01/14/252006 Line Necessity Peripherally incompatible solution 01/15/25714 Line Necessity Reviewed With PAT Ybarra 01/14/252006 Patient Tolerance of Line Care Tolerated well 01/15/25 0000 Dressing Change Due (Non-Gauze) 01/21/25 01/14/252006 Peripheral IV 01/14/25 Left Antecubital (Active) Line Status Blood return noted;Flushed;Saline locked;Alcohol sponge cap changed 01/15/25714 Site Assessment Clean;Dry;Intact 01/15/25714 Dressing Type Occlusive;Transparent 01/15/25714 Dressing Status Clean;Dry;Intact 01/15/25714 Dressing Intervention Initial dressing 01/15/25714 Dressing Change Due (Non-Gauze) 01/22/25 01/15/25714 Peripheral IV 01/14/25 Right Hand (Active) Line Status Blood return noted;Flushed;Infusing;Connections checked/tightened 01/15/25714 Site Assessment Clean;Dry;Intact 01/15/25714 Dressing Type Occlusive;Transparent 01/15/25714 Dressing Status Clean;Dry;Intact 01/15/25714 Dressing Intervention Initial dressing 01/15/25714 Dressing Change Due (Non-Gauze) 01/22/25 01/15/25714 Closed/Suction Drain 01/14/25 1 Anterior;Left Other (Comment) Bulb (Active) Drain/Tube Status To bulb suction 01/15/25714 Drain Securement Sutured 01/15/25714 Dressing Type Gauze 01/15/25714 Dressing Status Clean;Dry;Intact 01/15/25714 Drainage Appearance Bloody 01/15/25714 Output (mL) 40 mL 01/15/25714 NG/OG Tube 01/14/25 Orogastric Mouth (Active) Placement Verification Gastric content 01/15/25714 Status Suction-low intermittent 01/15/25714 Site Assessment Clean;Dry;Intact 01/15/25714 Secured at (cm) 65 cm 01/15/25714 Securement Method Adhesive tape 01/15/25714 Dressing Status/Interventions Clean;Dry;Intact 01/15/25714 Drainage Appearance Bile 01/15/25714 Feeding? (Yes or No) No 01/15/25714 Colostomy 01/14/25 LLQ (Active) Stomal Appliance 1 piece 01/15/25714 Site Assessment Clean;Intact 08/22/25 0715 Peristomal Assessment Clean;Intact 01/15/25 0715 Stool Color Red 01/14/25 1515 Output (mL) 0 mL 01/15/25 0715 Urinary Catheter 01/14/25 Coude (Active) Catheter Status Patent 01/15/25 0715 Site Assessment Clean;Skin intact 01/15/25 0715 Collection Container Standard drainage bag/container 01/15/25 0715 Securement Method Right 01/15/25 0715 Tamper Evident Seal Intact No 01/15/25 0715 Indication for Continuation Strict I&O in critically ill patient 01/15/25 0715 Urine Color Yellow/straw 01/15/25 0715 Urine Appearance Clear 01/15/25 0715 Output (mL) 110 mL 01/15/25 0715 Bladder Instillation? No 01/15/25 0715 ETT 01/14/25 Cuffed Oral (Active) Secured at (cm) 23 cm 01/15/25 0818 Measured from Gums 01/15/25 0818 Secured Location Center 01/15/25 0818 Secured by Commercial tube campa 01/15/25 0818 Subglottic Port Yes 01/15/25 0818 Bite Block Yes 01/15/25 0818 Cuff Pressure (cm H2O) 30 cm H2O 01/15/25 0818 Site Condition Cool;Dry 01/15/25 0818 Subglottic Secretions Scant;Thin;Clear 01/15/25 0818 Subglottic Suction Frequency Intermittent suction 01/15/25 0818 Arterial Line 01/14/25 Right Radial (Active) Line Status Infusing;Pulsatile blood flow 01/15/25 0715 Line Interventions Leveled;Connections checked and tightened;Pressure bag maintained;Armboard 01/15/25 0715 Waveform Appropriate 01/15/25 07 Site Assessment Clean;Dry;Intact 01/15/25 07 Dressing Type Occlusive;Transparent with CHG gel 01/15/25 0715 Dressing Status Clean;Dry;Intact 01/15/25 07 Dressing Intervention Initial dressing 01/15/25 0715 Color/Movement/Sensation Capillary refill less than 3 sec 01/15/25 0715 Patient Tolerance of Line Care Tolerated well 01/15/25 0715 Line Necessity Invasive hemodynamic monitoring 01/15/25 0715 Line Necessity Reviewed With CHRISTOS 01/14/25 1525 Dressing Change Due (Non-Gauze) 01/21/25 01/14/25 1525 X-ray chest 1 view Result Date: 01/17/2025 CLINICAL INFORMATION: Shortness of breath COMPARISON: Chest radiograph dated 01/16/2025. VIEWS: 1. FINDINGS: Interval worsening with large left basilar infiltrate and atelectasis. Probable moderate left pleural effusion. Cardiac and mediastinal shadows are normal. No pneumothorax. No free air below the diaphragm. IMPRESSION: Interval worsening with large left basilar infiltrate and atelectasis. Probable moderate left pleural effusion. Finalized by Ellen Angelo MD on 01/17/2025 12:10 PM X-ray chest 1 view Result Date: 01/16/2025 Single view chest History: SOB. Chest pain. Comparison: 01/15/2025 Findings: Single portable view ofthe chest. Interval extubation. Right-sided PICC line in unchanged position. Cardiac silhouette is stable. New small left-sided pleural effusion with bibasilar atelectasis and mild interstitial edema. Impression: 1. New small left-sided pleural effusion with bibasilar atelectasis. 2. Interval extubation. Finalized by Suhas Arellano MD on 01/16/2025 10:20 AM Echo complete W/O contrast Result Date: 01/14/2025 Left Ventricle: Left ventricle appears normal in size. There is mild asymmetric increased wall thickness/hypertrophy. Systolic function is normal with an ejection fraction of 55-60%. The quantitativeEF by 2D Mitchell biplane is 61%. No obvious regional wall motion abnormalities. Unable to assess diastolic function due to atrial fibrillation/flutter. Right Ventricle: Right ventricular size appearsnormal. The right ventricular basal diameter is 36.0 mm. Normal systolic excursion velocity by TDI (>9.5 cm/s). Tricuspid Valve: There is moderate regurgitation. There is no evidence of tricuspid valve stenosis. There is moderate pulmonary hypertension. Mitral Valve: The leaflets are moderately t hickened. There is mild annular calcification. There is moderate regurgitation with a centrally directed jet. There is no evidence of mitral valve stenosis. ASSESSMENT / PLAN: Acute hypoxic resp failure On vent Extubated 01/15/25 O2 HFNC - wean as tolerated Hypotension - resolved leukocytosis Post op - 01/14/25 - repair of incarcerated inguinal hernia, colon resection, colostomy, orchiectomy A fib RVR Cardizem gtt lopressor oral This is a late note on patient seen earlier today. . * Chyna Sanchez MD - 01/18/2025 6:42 AM EDT Images from the original note were not included. [facility] [id number] [facility] [id number] [facility] Medicine Progress Note Patient: Paul Guerrero Date of : 1950 Room: PCP: NO PCP, NO PCP Admission date: 01/14/2025 3:03 PM Encounter date: 01/18/25 Hospital Day: 5 SUBJECTIVE Interval History: Status: improved. No overnight events. Patient was seen and examined at the bedside No signs of acute distress noted at this time Remains on Cardene and heparin gtt Continue to wean off of cardizem gtt Started on Cardizem 30 mg t.I.d. POD#4 Laparotomy, LIH repair, Left orchiectomy, omentectomy, and Tracy's procedure Review of Systems Constitutional: Negative for activity change, appetite change, chills, fatigue, fever and unexpected weight change. HENT: Negative for congestion, dental problem, hearing loss, rhinorrhea, sore throat, trouble swallowing and voice change. Eyes: Negative for visual disturbance. Respiratory: Negative for cough, shortness of breath and wheezing. Cardiovascular: Negative for chest pain, palpitations and leg swelling. Gastrointestinal: Negative for abdominal pain, blood in stool, constipation, diarrhea, nausea and vomiting. Genitourinary: Negative for difficulty urinating, dysuria, enuresis, frequency and hematuria. Musculoskeletal: Negative for arthralgias, joint swelling and myalgias. Skin: Negative for color change, rash and wound. Neurological: Positive for weakness. Negative for dizziness, seizures, syncope, speech difficulty, numbness and headaches. Hematological: Negative for adenopathy. Does not bruise/bleed easily. Psychiatric/Behavioral: Negative for dysphoric mood and sleep disturbance. The patient is not nervous/anxious. All other systems reviewed and are negative. OBJECTIVE BP 137/80 Pulse 96 Temp 36.6 ??C (97.9 ??F) (Oral) Resp (!) 27 Ht 177.8 cm (5' 10 ) Wt 84.8 kg (186 lb 15.2 oz) SpO2 95% BMI 26.82 kg/m?? Temp: [36.5 ??C (97.7 ??F)-36.9 ??C (98.5 ??F)] 36.6 ??C (97.9 ??F) Pulse: [87-132] 96 Resp: [18-33] 27 BP: (100-159)/(59-102) 137/80 FiO2 (%): [48 %-90 %] 48 % SpO2: [84 %-100 %] 95 % O2 Device: Nasal cannula O2 Flow Rate (L/min): [6 L/min-40 L/min] 6 L/min Intake/Output Summary (Last 24 hours) at 01/18/2025 0642 Last data filed at 01/18/2025 0300 Gross per 24 hour Intake 1145.5 ml Output 3925 ml Net -2779.5 ml Physical Exam Vitals and nursing note reviewed. Constitutional: General: He is not in acute distress. Appearance: Normal appearance. He is well-developed. HENT: Head: Normocephalic and atraumatic. Right Ear: External ear normal. Left Ear: External ear normal. Nose: Nose normal. Right Sinus: No maxillary sinus tenderness or frontal sinus tenderness. Left Sinus: No maxillary sinus tenderness or frontal sinus tenderness. Mouth/Throat: Lips: [place]. Mouth: Mucous membranes are moist. Pharynx: Oropharynx is clear. Eyes: General: No scleral icterus. Extraocular Movements: Extraocular movements intact. Pupils: Pupils are equal, round, and reactive to light. Neck: Vascular: No carotid bruit or JVD. Cardiovascular: Rate and Rhythm: Normal rate. Rhythm irregular. Pulses: Radial pulses are 2+ on the right side and 2+ on the left side. Heart sounds: Normal heart sounds, S1 normal and S2 normal. No murmur heard. No friction rub. No gallop. Pulmonary: Effort: Pulmonary effort is normal. Breath sounds: Normal breath sounds. No decreased air movement. No decreased breath sounds, wheezing, rhonchi or rales. Abdominal: General: Bowel sounds are normal. Palpations: Abdomen is soft. Tenderness: There is no abdominal tenderness. Comments: Colostomy in place Musculoskeletal: Cervical back: Full passive range of motion without pain. Right lower leg: No edema. Left lower leg: No edema. Skin: General: Skin is warm and dry. Capillary Refill: Capillary refill takes less than 2 seconds. Coloration: Skin is pale. Findings: Bruising present. No erythema, rash or wound. Neurological: Motor: No weakness. Medications Scheduled: acetaminophen, 1,000 mg, oral, Q6H RAYSA cefTRIAXone (ROCEPHIN) IV, 1,000 mg, intravenous, Q24H chlorhexidine, 15 mL, mouth/throat, BID famotidine, 20 mg, intravenous, Q12H metoprolol tartrate, 50 mg, oral, BID metroNIDAZOLE, 500 mg, intravenous, Q12H [COMPLETED] Consult PICC nurse - PICC, , , Once AND sodium chloride, 10 mL, intravenous, Q12H AND sodium chloride, 10 mL, intravenous, PRN AND sodium chloride, 20 mL, intravenous, PRN Infusions: diltiazem, 2.5-20 mg/hr, Last Rate: 13 mg/hr (01/18/25 0915) heparin, 300-3,500 Units/hr, Last Rate: 1,100 Units/hr (01/18/25 1956) As Needed: acetaminophen alum-mag hydroxide-simeth heparin (porcine) HYDROmorphone levalbuterol magnesium sulfate magnesium sulfate metoprolol (LOPRESSOR) IV ondansetron oxyCODONE oxyCODONE potassium chloride OR potassium chloride OR potassium chloride IV (Adult) sennosides-docusate sodium [COMPLETED] Consult PICC nurse - PICC AND sodium chloride AND sodium chloride AND sodium chloride Allergies: Patient has no known allergies. Code Status: Full Code Labs Recent Results (from the past 24 hours) Blood Gas, Arterial Collection Time: 01/17/25 11:34 AM Result Value Ref Range Sample type ARTERIAL pH, Arterial 7.394 7.350 - 7.450 pCO2, Arterial 51.6 (H) 35.0 - 45.0 mmHg PO2, Arterial 55 (L) 80 - 100 mmHg Base, Excess 5.0 (H) 0.0 - 2.0 mmol/L HCO3, Arterial 31.5 (H) 22.0 - 26.0 mmol/L %O2 Saturation, Arterial 87.0 (L) >90.0 % Temo's test Pass SPO2 90 % Sample site L Rad Insp. O2 conc. 76 % Source Of Oxygen NC Ammonia Collection Time: 01/17/25 12:12 PM Result Value Ref Range AMMONIA 20 11 - 35 umol/L Comprehensive metabolic panel Collection Time: 01/18/25 4:28 AM Result Value Ref Range SODIUM 141 134 - 146 mmol/L POTASSIUM 3.7 3.5 - 5.0 mmol/L CHLORIDE 98 98 - 109 mmol/L CARBON DIOXIDE 33 (H) 22 - 32 mmol/L ANION GAP 10 5 - 15 mmol/L BLOOD UREA NITROGEN 36 (H) 5 - 27 mg/dL CREATININE 0.98 0.70 - 1.20 mg/dL GLUCOSE 126 (H) 65 - 99 mg/dL CALCIUM 8.4 (L) 8.5 - 10.5 mg/dL TOTAL PROTEIN 5.5 (L) 6.0 - 8.0 g/dL ALBUMIN 2.5 (L) 3.2 - 5.3 g/dL ALKALINE PHOSPHATASE 60 39 - 130 U/L AST 24 <=41 U/L ALT 35 <=40 U/L BILIRUBIN,TOTAL 0.6 0.3 - 1.2 mg/dL EGFR Non-Race Dependent 81 >=60 ml/min/1.73sq.m Magnesium Collection Time: 01/18/25 4:28 AM Result Value Ref Range MAGNESIUM 1.8 1.8 - 2.6 mg/dL CBC auto differential Collection Time: 01/18/25 4:28 AM Result Value Ref Range WBC 19.0 (H) 4 - 11 x10E9/L RBC Count 3.82 (L) 4.1 - 5.7 X10E12/L Hemoglobin 12.0 (L) 13 - 17 g/dL Hematocrit 36.1 (L) 39 - 50 % MCV 95 80 - 100 fL MCH 31.5 27 - 34 pg MCHC 33.4 32 - 36 g/dL RDW 14.5 11.5 - 15 % Platelet Count 393 150 - 450 X10E9/L MPV 8.2 7 - 12 fL Myelocyte % 1 % Bands % 2 % Neutrophils % 85 % Lymphocytes % 9 % Monocytes % 4 % Neutrophils Absolute (M) 16.5 (H) 1.5 - 6.6 10*3/uL Lymphocytes Absolute 1.6 1.0 - 3.5 10*3/uL Monocytes Absolute 0.7 0.0 - 0.9 10*3/uL RBC Morphology Normal Differential Type CELLAVISION DIFFERENTIAL Anti XA unfractionated heparin Collection Time: 01/18/25 4:28 AM Result Value Ref Range ANTI XA UFH 0.24 (L) 0.30 - 0.70 IU/mL Radiology X-ray chest 1 view Result Date: 01/17/2025 CLINICAL INFORMATION: Shortness of breath COMPARISON: Chest radiograph dated 01/16/2025. VIEWS: 1. FINDINGS: Interval worsening with large left basilar infiltrate and atelectasis. Probable moderate left pleural effusion. Cardiac and mediastinal shadows are normal. No pneumothorax. No free air below the diaphragm. IMPRESSION: Interval worsening with large left basilar infiltrate and atelectasis. Probable moderate left pleural effusion. Finalized by Ellen Angelo MD on 01/17/2025 12:10 PM HOSPITAL PROBLEM LIST Principal Problem: Acute respiratory failure with hypoxia ([facility]) Active Problems: Paroxysmal atrial fibrillation ([facility]) Cardiomyopathy, nonischemic (CMS-HCC) Atrial fibrillation with rapid ventricular response (CMS-HCC) A-fib (CMS-[facility]) ELLY (acute kidney injury) Scrotal swelling Colostomy present (CMS-[facility]) Fall Traumatic rhabdomyolysis History of CVA (cerebrovascular accident) Hypotension Septic shock (CMS-HCC) H/O unilateral orchiectomy H/O left inguinal hernia repair S/P partial resection of colon ASSESSMENT & PLAN Acute respiratory failure with hypoxia Hypotension Patient remains intubated postop Transferred to [facility] from [place] Pulmonology consulted Extubated 01/15 Now on 6 L HFNC Starting high flow Off levophed Scrotal swelling Incarcerated hernia Colostomy creation General surgery following OR at [place] 01/[address] James Lanier/Lydia for intraabdominal coverage POD#4 Laparotomy, LIH repair, Left orchiectomy, omentectomy, and Tracy's procedure Acute kidney injury Traumatic rhabdomyolysis Trend CK/Myoglobin daily Creatinine normalized Traumatic blackwell insertion Urology consulted Dr. Stevenson with Urology was spoke to at [place] intraop Requested no Blackwell insertion attempts until Urology can see patient Blackwell placed with urology 01/14 with urology Paroxysmal atrial fibrillation Remains on Cardizem drip continue to wean Started on Cardizem 30 mg tid On Eliquis and metoprolol at home Continue heparin drip DC planning: currently on 6 L HFNC, resumed cardizem drip today per cardiology. Medically Ready for Discharge: Anticipated in 2-4 Days PAT Cheng 01/18/2025 6:42 AM [facility] 7AM-7PM & 7PM-7AM: EpicChat or page through On-Call Finder. PAT Cheng 01/18/[address] Chyna Sanchez, personally performed a face to face diagnostic evaluation on this patient. I have reviewed the note authored by the advance practice provider including history, review of systems, physical examination, medical decision making and agree with the assessment and plan as written. I have seen and evaluated the patient,I have repeated the wood portions of the physical exam and concur with the CESARIO findings.I have reviewed all laboratory findings and imaging reprts/films.I agree with the plan as noted. * Travis Agrawal MD - 01/17/2025 1:47 PM EDT Images from the original note were not included. Pulmonary Progress Note Patient - Paul Guerrero Age - 74 y.o. - 1950 [facility] # - [id number] Date of Admission - 01/14/2025 3:03 PM Consulting Service/Physician Consulting: Consulting Providers Provider Service Specialty Laura Cobian MD -- General Surgery Travis Agrawal MD Z Pulmonology Pulmonary Disease [facility] -- Cardiology Hanane Marie MD -- Urology Primary Care Physician: NO PCP, NO PCP REASON FOR VISIT: resp failure, REVIEW OF SYMPTOMS: Cough++, unable to expectorate Denies chest pain, SOB Events since last visit : period of low sat earlier Past Medical History: Past Medical History: Diagnosis [place]/2025 admission Acute renal failure (ARF) occured at time of GI bleed Atrial fibrillation [place] Bluish skin discoloration CHF [place]congestive heart failure) [place] 2012 initial EF 15 % // last ECHO 55 % Cholecystitis Contracture of finger joint Patient had an accident on a ladder causing deformity and this eventually developed into a contracture. Patient elected not to have surgery. 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 / [facility] / Dr Bruce/ CTA Occult blood in stools abn fit test Peptic ulceration GI bleed Pneumonia Respiratory failure [place] occured at time of GI bleed Stroke [place] 06/2016 rx with TPA , Past Surgical History: Procedure Laterality Date CARDIAC CATHETERIZATION COLONOSCOPY diverticulosis / lg ingunial hernia CREATION COLOSTOMY Left 01/14/2025 Performed by Delmar Ramirez MD at [facility] ESOPHAGOGASTRODUODENOSCOPY severe errosis gastritis and duodenitis ORCHIECTOMY Left 01/14/2025 Performed by Delmar Ramirez MD at [facility] REPAIR HERNIA INGUINAL Left 01/14/2025 Performed by Delmar Ramirez MD at [facility] TONSILLECTOMY Social History: Social History Socioeconomic History Marital status: Single [...] Resource Strain: Not on file Food Insecurity: Patient Unable To Answer (01/15/2025) Hunger Screening Food Insecurity - Worry: Patient unable to answer Food Insecurity - Inability: Patient unable to answer Transportation Needs: Patient Unable To Answer (01/14/2025) PRAPARE - Transportation Lack of Transportation (Medical): Patient unable to answer Lack of Transportation (Non-Medical): Patient unable to answer Physical Activity: Not on file Stress: Not on file Social Connections: Not on file Interpersonal Safety: Patient Unable To Answer (01/14/2025) Humiliation, Afraid, Rape, and Kick questionnaire Fear of Current or Ex-Partner: Patient unable to answer Emotionally Abused: Patient unable to answer Physically Abused: Patient unable to answer Sexually Abused: Patient unable to answer Housing Instability: Patient Unable To Answer (01/14/2025) Housing Instability Housing Instability: Patient unable to answer SUBJECTIVE VITALS height is 177.8 cm (5' 10 ) and weight is 84.8 kg (186 lb 15.2 oz). His oral temperature is 36.9 ??C (98.4 ??F). His blood pressure is 128/82 and his pulse is 97. His respiration is 23 and oxygen saturation is 96%. Temperature Range: Temp (24hrs), Av.9 ??C (98.4 ??F), Min:36.8 ??C (98.2 ??F), Max:37 ??C (98.6??F) BP Range: Systolic (24hrs), Av , Min:105 , Max:141 Pulse Range: Pulse Av.9 Min: 74 Max: 204 Respiration Range: Resp Av.4 Min: 8 Max: 33 Current Pulse Ox: Temp: 36.9 ??C (98.4 ??F) 24HR Pulse Ox Range: Temp Av.8 ??C (98.2 ??F) Min: 36.1 ??C (97 ??F) Max: 38.2 ??C (100.8 ??F) Oxygen Amount and Delivery: O2 Device: Nasal cannula (salter) O2 Flow Rate (L/min): 40 L/min Wt Readings from Last 3 Encounters: 01/15/25 84.8 kg (186 lb 15.2 oz) 01/14/25 83.2 kg (183 lb 6.8 oz) 05/19/24 80.5 kg (177 lb 6.4 oz) I/O (24 Hours) Intake/Output Summary (Last 24 hours) at 01/17/2025 1347 Last data filed at 01/17/2025 1338 Gross per 24 hour Intake 2214.5 ml Output 4195 ml Net -1980.5 ml Exam Cardizem gtt General Appearance - awake, alert O2 RA HEENT - normocephalic, atraumatic. Neck - Supple, trachea midline Lungs - Fair air entry bilaterally, breath sounds vesicular, no rhonchi, no rales or crackles Cardiovascular - Heart sounds are normal. IRRegular rate and rhythm. Rate 120-160 Abdomen - soft, nontender, nondistended, no masses or organomegaly Neurologic - There are no focal motor or sensory deficits Skin - no bruising or bleeding Extremities - no cyanosis, clubbing or edema Meds Current Facility-Administered Medications: acetaminophen (TYLENOL EXTRA STRENGTH) tablet 1,000 mg, 1,000 mg, oral, Q6H [facility], JOANA Sanchez, 1,000 mg at 01/17/25 1210 acetaminophen (TYLENOL EXTRA STRENGTH) tablet 500 mg, 500 mg, oral, Q6H PRN, PAT Ybarra alum-mag hydroxide-simeth (MAALOX) 200-200-20 mg/5 mL suspension 30 mL, 30 mL, oral, PCHSP, PAT Ybarra cefTRIAXone (ROCEPHIN) 1,000 mg in sodium chloride 0.9 % 50 mL IVPB W/ADAPTER, 1,000 mg, intravenous, Q24H, PAT Ybarra, Stopped at 01/16/25 2152 chlorhexidine (PERIDEX) 0.12 % solution 15 mL, 15 mL, mouth/throat, BID, Travis Agrawal MD, 15 mL at01/17/25 0813 dilTIAZem (CARDIZEM) 100 mg in sodium chloride 0.9 % 100 mL (1 mg/mL) infusion- AV, 2.5-20 mg/hr, intravenous, Continuous, Lanny Evans MD, Last Rate: 5 mL/hr at 01/17/25 1245, 5 mg/hr at 245 famotidine (PF) (PEPCID) injection 20 mg, 20 mg, intravenous, Q12H, Brenda Millan APRN-DYLAN, 20 mg at 01/17/25 0546 heparin (porcine) injection 2,000 Units, 2,000 Units, intravenous, PRN, Brenda Millan APRN-PRIVATE EQUITY ANALYST heparin infusion 77070 units/500 mL in 0.45% NaCl (50 units/mL premix), 300- 3,500 Units/hr, intravenous, Continuous, Brenda Millan APRN-DYLAN, Last Rate: 20 mL/hr at 01/17/25 1245, 1,000 Units/hr at01/17/25 1245 HYDROmorphone (PF) (DILAUDID) injection 0.5 mg, 0.5 mg, intravenous, Q3H PRN, JOANA Sanchez levalbuterol (XOPENEX) nebulizer solution 1.25 mg, 1.25 mg, nebulization, Q4H PRN, Travis Agrawal MD, 1.25 mg at 01/17/25 1009 magnesium sulfate IVPB 2000 mg/50 mL in iso-osmotic water (40 mg/mL premix), 2,000 mg, intravenous,PRN, Brenda Millan APRN-[employer]NALYST magnesium sulfate IVPB 4000 mg/100 mL in iso-osmotic water (40 mg/mL premix), 4,000 mg, intravenous, PRN, Brenda Millan APRN-PRIVATE EQUITY ANALYST metoprolol (LOPRESSOR) injection 2.5 mg, 2.5 mg, intravenous, Q6H PRN, Alis Weems MD, 2.5 mgat 01/17/25 1020 metoprolol tartrate (LOPRESSOR) tablet 50 mg, 50 mg, oral, BID, Javad Horvath MD, 50 mg at 01/17/25 1220 metroNIDAZOLE (FLAGYL) IVPB 500 mg/100 mL in iso-osmotic sodium chloride (5 mg/mL premix), 500 mg, intravenous, Q12H, PAT Ybarra, Stopped at 01/17/25 0644 ondansetron (PF) (ZOFRAN) injection 4 mg, 4 mg, intravenous, Q4H PRN, PAT Ybarra oxyCODONE (ROXICODONE) immediate release tablet 10 mg, 10 mg, oral, Q4H PRN, JOANA Sanchez oxyCODONE (ROXICODONE) immediate release tablet 5 mg, 5 mg, oral, Q4H PRN, JOANA Sanchez potassium chloride (K-TAB,KLOR-CON) CR tablet 30-50 mEq, 30-50 mEq, oral, PRN OR potassium chloride (KAYCIEL) 20 mEq/15 mL solution 30-50 mEq, 30-50 mEq, oral, PRN OR potassium chloride IVPB 10 mEq/100 mL in water (0.1 mEq/mL premix), 10 mEq, intravenous, PRN, PAT Ybarra sennosides-docusate sodium (SENOKOT-S) 8.6-50 mg 1 tablet, 1 tablet, oral, Q12H PRN, PAT Ybarra [COMPLETED] Consult PICC nurse - PICC, , , Once AND sodium chloride 0.9 % flush 10 mL, 10 mL, intravenous, Q12H, 10 mL at 01/17/25 0544 AND sodium chloride 0.9 % flush 10 mL, 10 mL, intravenous, PRN AND sodium chloride 0.9 % flush 20 mL, 20 mL, intravenous, PRN, PAT Ybarra ALLERGIES: No Known Allergies Results from last 3 days Lab Units 01/17/25 0405 01/16/25 0428 01/15/25 0310 BUN mg/dL 43* 47* 40* CREATININE mg/dL 1.07 1.30* 1.35* POTASSIUM mmol/L 4.0 4.6 4.2 CO2 mmol/L 30 26 26 CHLORIDE mmol/L 101 105 102 MAGNESIUM mg/dL 2.0 2.2 2.2 AST U/L 25 28 34 ALT U/L 38 35 35 ALK PHOS U/L 67 482* 60 Results from last 3 days Lab Units 01/16/25 1641 INR 1.6* PROTIME sec 18.3* Results from last 3 days Lab Units 01/17/25 0405 01/16/25 1641 01/16/25 0428 01/15/25 0310 WBC x10E9/L 18.2* -- 16.6* 14.4* HEMOGLOBIN g/dL 12.0* 11.3* 10.5* 10.3* HEMATOCRIT % 35.7* -- 31.8* 30.7* PLATELETS X10E9/L 377 335 301 246 MCV fL 94 -- 94 93 MCH pg 31.5 -- 31.0 31.4 MCHC g/dL 33.5 -- 32.9 33.8 RDW % 14.6 -- 14.3 13.9 EOS ABS AUTO 10*3/uL 0.0 -- 0.0 0.0 Microbiology Results Procedure Component Value Units Date/Time Blood culture #1 [[id number]] Collected: 01/14/25 1328 Specimen: Blood, Venous Updated: 01/16/25 190 CULTURE RESULTS NO GROWTH 2 DAYS Blood culture #2 [[id number]] Collected: 01/14/25 1253 Specimen: Blood, Venous Updated: 01/16/25 1901 CULTURE RESULTS NO GROWTH 2 DAYS Anaerobic culture [[id number]] (Abnormal) Collected: 01/14/25 1012 Specimen: Aspirate from Abdomen Updated: 01/17/25 1055 CULTURE RESULTS Many Bacteroides fragilis Many Bacteroides ovatus/xylanisolvens Aspirate culture includes gram stain [[id number]] (Abnormal) (Susceptibility) Collected: 01/14/25 1012 Specimen: Aspirate from Abdomen Updated: 01/17/25 1134 CULTURE RESULTS Rare Escherichia coli Rare Streptococcus gordonii Rare Edith utilis GRAM STAIN >25 White Blood Cells/LPF 0 Squamous Epithelial Cells/LPF Many Gram negative bacilli Many Gram positive coccobacilli Susceptibility Escherichia coli Not Specified AMP/SULBACTAM <=2.0 Susceptible Ampicillin 8.0 Susceptible Cefazolin (non-urinary) <=1.0 Susceptible Cefazolin (urinary) <=1.0 Susceptible Ceftriaxone <=0.25 Susceptible Ciprofloxacin <=0.06 Susceptible Gentamicin <=1.0 Susceptible Levofloxacin <=0.12 Susceptible PIPERACIL/TAZOBACTAM <=4.0 Susceptible Blood culture [[id number]] Collected: 01/12/25 1829 Specimen: Blood, Venous Updated: 01/16/25 2301 CULTURE RESULTS NO GROWTH 4 DAYS Blood culture [[id number]] Collected: 01/12/25 1723 Specimen: Blood, Venous Updated: 01/16/25 2301 CULTURE RESULTS NO GROWTH 4 DAYS SARS/FLU A+B/RSV by NAAT/Molecular (M4RT Collection Tube) [[id number]] (Normal) Collected: 01/12/25 1712 Specimen: Swab from Nasopharynx Updated: 01/12/25 1812 FLU A PCR Negative FLU B PCR Negative RSV BY PCR Negative SARS COV 2 BY PCR Not Detected Narrative: The Xpert Xpress SARS-CoV-2/Flu/RSV Plus test is [...] operators who are performing tests using either [employer] DX or [employer] Infinity systems and islimited to laboratories that meet [...] with specimenrepeat. Fact Sheet for Healthcare Providers: https://www.fda.gov/media/406565/download Fact Sheet for Patients: https://www.fda.gov/media/639189/download Glucose Results from last 7 days Lab Units 01/17/25 0405 01/16/25 0428 01/15/25 0310 01/14/25 1252 01/14/25 0425 01/13/25 0437 01/12/25 1711 GLUCOSE mg/dL 122* 118* 113* 130* 115* 129* 125* I/O last 3 completed shifts: In: 3840.2 [I.V.:2667.8; IV Piggyback:1172.4] Out: 4650 [Urine:4515; Drains:135] Microbiology Results Procedure Component Value Units Date/Time Blood culture #1 [[id number]] Collected: 01/14/25 1328 Specimen: Blood, Venous Updated: 01/16/25 1901 CULTURE RESULTS NO GROWTH 2 DAYS Blood culture #2 [[id number]] Collected: 01/14/25 1253 Specimen: Blood, Venous Updated: 01/16/25 1901 CULTURE RESULTS NO GROWTH 2 DAYS Anaerobic culture [[id number]] (Abnormal) Collected: 01/14/25 1012 Specimen: Aspirate from Abdomen Updated: 01/17/25 1055 CULTURE RESULTS Many Bacteroides fragilis Many Bacteroides ovatus/xylanisolvens Aspirate culture includes gram stain [[id number]] (Abnormal) (Susceptibility) Collected: 01/14/25 1012 Specimen: Aspirate from Abdomen Updated: 01/17/25 1134 CULTURE RESULTS Rare Escherichia coli Rare Streptococcus gordonii Rare Edith utilis GRAM STAIN >25 White Blood Cells/LPF 0 Squamous Epithelial Cells/LPF Many Gram negative bacilli Many Gram positive coccobacilli Susceptibility Escherichia coli Not Specified AMP/SULBACTAM <=2.0 Susceptible Ampicillin 8.0 Susceptible Cefazolin (non-urinary) <=1.0 Susceptible Cefazolin (urinary) <=1.0 Susceptible Ceftriaxone <=0.25 Susceptible Ciprofloxacin <=0.06 Susceptible Gentamicin <=1.0 Susceptible Levofloxacin <=0.12 Susceptible PIPERACIL/TAZOBACTAM <=4.0 Susceptible Blood culture [[id number]] Collected: 01/12/25 1829 Specimen: Blood, Venous Updated: 01/16/25 2301 CULTURE RESULTS NO GROWTH 4 DAYS Blood culture [[id number]] Collected: 01/12/25 1723 Specimen: Blood, Venous Updated: 01/16/25 2301 CULTURE RESULTS NO GROWTH 4 DAYS SARS/FLU A+B/RSV by NAAT/Molecular (M4RT Collection Tube) [[id number]] (Normal) Collected: 01/12/25 1712 Specimen: Swab from Nasopharynx Updated: 01/12/25 181 FLU A PCR Negative FLU B PCR Negative RSV BY PCR Negative SARS COV 2 BY PCR Not Detected Narrative: The Xpert Xpress SARS-CoV-2/Flu/RSV Plus test is [...] operators who are performing tests using either [employer] DX or [employer] systems and islimited to laboratories that meet [...] with specimenrepeat. Fact Sheet for Healthcare Providers: https://www.fda.gov/media/972512/download Fact Sheet for Patients: https://www.fda.gov/media/648635/download Lines/Drains PICC Triple Lumen 01/14/25 Right (Active) Precautions Standard precautions;Hand hygiene;Gloves 01/15/25714 Lumen 1 Vigil 01/15/25714 Lumen 1 Status Blood return noted;Flushed;Saline locked;Alcohol sponge cap changed 01/15/25714 Lumen 1 Needleless Cap Cap changed 01/15/25 0000 Lumen 1 Needleless Cap Change Due 01/19/25 01/15/25 0000 Lumen 2 Red 01/15/25714 Lumen 2 Status Blood return noted;Flushed;Infusing;Connections checked/tightened 01/15/25714 Lumen 2 Needleless Cap Initial cap placed 01/14/252006 Lumen 2 Needleless Cap Change Due 01/18/25 01/14/252006 Lumen 3 White 01/15/25714 Lumen 3 Status Blood return noted;Flushed;Infusing;Connections checked/tightened 01/15/25714 Lumen 3 Needleless Cap Cap changed 01/15/25 0000 Lumen 3 Needleless Cap Change Due 01/19/25 01/15/25 0000 Length bk (cm) 1 cm 01/14/252006 Extremity Circumference (cm) 27 cm 01/14/252006 Site Assessment Clean;Dry;Intact 01/15/25714 Dressing Type Occlusive;Transparent with CHG gel 01/15/25714 Dressing Status Clean;Dry;Intact 01/15/25714 Dressing Intervention Initial dressing 01/14/252006 Line Necessity Peripherally incompatible solution 01/15/25714 Line Necessity Reviewed With PAT Ybarra 01/14/252006 Patient Tolerance of Line Care Tolerated well 01/15/25 0000 Dressing Change Due (Non-Gauze) 01/21/25 01/14/252006 Peripheral IV 01/14/25 Left Antecubital (Active) Line Status Blood return noted;Flushed;Saline locked;Alcohol sponge cap changed 01/15/25714 Site Assessment Clean;Dry;Intact 01/15/25714 Dressing Type Occlusive;Transparent 01/15/25714 Dressing Status Clean;Dry;Intact 01/15/25714 Dressing Intervention Initial dressing 01/15/25714 Dressing Change Due (Non-Gauze) 01/22/25 01/15/25714 Peripheral IV 01/14/25 Right Hand (Active) Line Status Blood return noted;Flushed;Infusing;Connections checked/tightened 01/15/25714 Site Assessment Clean;Dry;Intact 01/15/25714 Dressing Type Occlusive;Transparent 01/15/25714 Dressing Status Clean;Dry;Intact 01/15/25714 Dressing Intervention Initial dressing 01/15/25714 Dressing Change Due (Non-Gauze) 01/22/25 01/15/25714 Closed/Suction Drain 01/14/25 1 Anterior;Left Other (Comment) Bulb (Active) Drain/Tube Status To bulb suction 01/15/25714 Drain Securement Sutured 01/15/25714 Dressing Type Gauze 01/15/25714 Dressing Status Clean;Dry;Intact 01/15/25714 Drainage Appearance Bloody 01/15/25714 Output (mL) 40 mL 01/15/25714 NG/OG Tube 01/14/25 Orogastric Mouth (Active) Placement Verification Gastric content 01/15/25714 Status Suction-low intermittent 01/15/25714 Site Assessment Clean;Dry;Intact 01/15/25714 Secured at (cm) 65 cm 01/15/25714 Securement Method Adhesive tape 01/15/25714 Dressing Status/Interventions Clean;Dry;Intact 01/15/25714 Drainage Appearance Bile 01/15/25714 Feeding? (Yes or No) No 01/15/25714 Colostomy 01/14/25 LLQ (Active) Stomal Appliance 1 piece 01/15/25714 Site Assessment Clean;Intact 01/15/25714 Peristomal Assessment Clean;Intact 01/15/25714 Stool Color Red 01/14/25 1515 Output (mL) 0 mL 01/15/25714 Urinary Catheter 01/14/25 Coude (Active) Catheter Status Patent 01/15/25 0715 Site Assessment Clean;Skin intact 01/15/25 0715 Collection Container Standard drainage bag/container 01/15/25 0715 Securement Method Right 01/15/25 0715 Tamper Evident Seal Intact No 01/15/25 0715 Indication for Continuation Strict I&O in critically ill patient 01/15/25 0715 Urine Color Yellow/straw 01/15/25 0715 Urine Appearance Clear 01/15/25 0715 Output (mL) 110 mL 01/15/25 0715 Bladder Instillation? No 01/15/25 0715 ETT 01/14/25 Cuffed Oral (Active) Secured at (cm) 23 cm 01/15/25 0818 Measured from Gums 01/15/25 0818 Secured Location Center 01/15/25 0818 Secured by Commercial tube campa 01/15/25 0818 Subglottic Port Yes 01/15/25 0818 Bite Block Yes 01/15/25 0818 Cuff Pressure (cm H2O) 30 cm H2O 01/15/25 0818 Site Condition Cool;Dry 01/15/25 0818 Subglottic Secretions Scant;Thin;Clear 01/15/25 0818 Subglottic Suction Frequency Intermittent suction 01/15/25 0818 Arterial Line 01/14/25 Right Radial (Active) Line Status Infusing;Pulsatile blood flow 01/15/25 0715 Line Interventions Leveled;Connections checked and tightened;Pressure bag maintained;Armboard 01/15/25 0715 Waveform Appropriate 01/15/25714 Site Assessment Clean;Dry;Intact 01/15/25 07 Dressing Type Occlusive;Transparent with CHG gel 01/15/25 0715 Dressing Status Clean;Dry;Intact 01/15/25 0715 Dressing Intervention Initial dressing 01/15/25 0715 Color/Movement/Sensation Capillary refill less than 3 sec 01/15/25 0715 Patient Tolerance of Line Care Tolerated well 01/15/25 07 Line Necessity Invasive hemodynamic monitoring 01/15/25714 Line Necessity Reviewed With CHRISTOS 01/14/251524 Dressing Change Due (Non-Gauze) 01/21/25 01/14/25 1525 X-ray chest 1 view Result Date: 01/17/2025 CLINICAL INFORMATION: Shortness of breath COMPARISON: Chest radiograph dated 01/16/2025. VIEWS: 1. FINDINGS: Interval worsening with large left basilar infiltrate and atelectasis. Probable moderate left pleural effusion. Cardiac and mediastinal shadows are normal. No pneumothorax. No free air below the diaphragm. IMPRESSION: Interval worsening with large left basilar infiltrate and atelectasis. Probable moderate left pleural effusion. Finalized by Ellen Angelo MD on 01/17/2025 12:10 PM X-ray chest 1 view Result Date: 01/16/2025 Single view chest History: SOB. Chest pain. Comparison: 01/15/2025 Findings: Single portable view ofthe chest. Interval extubation. Right-sided PICC line in unchanged position. Cardiac silhouette is stable. New small left-sided pleural effusion with bibasilar atelectasis and mild interstitial edema. Impression: 1. New small left-sided pleural effusion with bibasilar atelectasis. 2. Interval extubation. Finalized by Suhas Arellano MD on 01/16/2025 10:20 AM X-ray chest 1 view Result Date: 01/15/2025 XR CHEST 1 VW Clinical Information: resp failure Comparison: 01/14/2025. IMPRESSION: * Unchanged lines and tubes. * Minimal basilar atelectasis, trace left effusion. * Cardiomegaly. Finalized by Jeb Luciano MD on 01/15/2025 7:50 AM X-ray chest 1 view Result Date: 01/14/2025 History: PICC line placement Technique: A portable single frontal view of the chest was obtained. Comparison: 01/14/2025 at 106. Findings: There is a PICC line approaching from the right with its tip this. Vena cava. An endotracheal tube is seen with its tip approximate 6.4 cm above the mellisa. An enteric tube is seen with its tip in the stomach however its side port is at the level of the gastroesophageal junction, retracted slightly since the previous examination. Advancement further the stomach is recommended. There is no evidence for active cardiovascular or pulmonary disease. Impression: * Right-sided PICC line has its tip in the superior vena cava * The enteric tube has retracted slightly since the previous examination and its side-port is now at the level the gastroesophageal junction * Endotracheal tube in place with its tip above the mellisa. Finalized by Reynaldo Decker MD on 01/14/2025 8:57 PM Echo complete W/O contrast Result Date: 01/14/2025 Left Ventricle: Left ventricle appears normal in size. There is mild asymmetric increased wall thickness/hypertrophy. Systolic function is normal with an ejection fraction of 55-60%. The quantitativeEF by 2D Mitchell biplane is 61%. No obvious regional wall motion abnormalities. Unable to assess diastolic function due to atrial fibrillation/flutter. Right Ventricle: Right ventricular size appearsnormal. The right ventricular basal diameter is 36.0 mm. Normal systolic excursion velocity by TDI (>9.5 cm/s). Tricuspid Valve: There is moderate regurgitation. There is no evidence of tricuspid valve stenosis. There is moderate pulmonary hypertension. Mitral Valve: The leaflets are moderately t hickened. There is mild annular calcification. There is moderate regurgitation with a centrally directed jet. There is no evidence of mitral valve stenosis. ASSESSMENT / PLAN: Acute hypoxic resp failure On vent Extubated 01/15/25 O2 HFNC - wean as tolerated Hypotension - resolved Post op - 01/14/25 - repair of incarcerated inguinal hernia, colon resection, colostomy, orchiectomy A fib RVR Cardizem gtt ;lopressor oral DW RN, * Radu Cerda MD - 01/17/2025 11:02 AM EDT Images from the original note were not included. [facility] [address] [place] [address] PROGRESS NOTE Paul Guerrero is more confused today per nursing staff Otherwise denies any chest pain or shortness of breath Telemetry reveals AFib with RVR SUBJECTIVE Allergies: No Known Allergies CURRENT MEDICATIONS acetaminophen, 1,000 mg, oral, Q6H RAYSA cefTRIAXone (ROCEPHIN) IV, 1,000 mg, intravenous, Q24H chlorhexidine, 15 mL, mouth/throat, BID famotidine, 20 mg, intravenous, Q12H metoprolol (LOPRESSOR) IV, 5 mg, intravenous, Q6H RAYSA metroNIDAZOLE, 500 mg, intravenous, Q12H [COMPLETED] Consult PICC nurse - PICC, , , Once AND sodium chloride, 10 mL, intravenous, Q12H AND sodium chloride, 10 mL, intravenous, PRN AND sodium chloride, 20 mL, intravenous, PRN CONTINUOUS INFUSIONS diltiazem, 2.5-20 mg/hr, Last Rate: Stopped (01/16/25 1728) heparin, 300-3,500 Units/hr, Last Rate: 1,000 Units/hr (01/17/25 0645) Review of Systems: As above OBJECTIVE CBC: Results from last 7 days Lab Units 01/17/2540401/16/25164001/16/2542701/15/25 0310 WBC x10E9/L 18.2* -- 16.6* 14.4* HEMOGLOBIN g/dL 12.0* 11.3* 10.5* 10.3* HEMATOCRIT % 35.7* -- 31.8* 30.7* MCV fL 94 -- 94 93 PLATELETS X10E9/L 377 335 301 246 BMP: Results from last 7 days Lab Units 01/17/2540401/16/25 04201/15/25 0310 SODIUM mmol/L 141 140 134 POTASSIUM mmol/L 4.0 4.6 4.2 CHLORIDE mmol/L 101 105 102 CO2 mmol/L 30 26 26 BUN mg/dL 43* 47* 40* CREATININE mg/dL 1.07 1.30* 1.35* CALCIUM mg/dL 8.6 8.7 8.2* MAGNESIUM mg/dL 2.0 2.2 2.2 PT/INR: Results from last 7 days Lab Units 01/16/25 16401/12/25 1711 PROTIME sec 18.3* 24.7* INR 1.6* 2.1* APTT: MAG: Results from last 7 days Lab Units 01/17/25 04001/16/25 0428 01/15/25 0310 MAGNESIUM mg/dL 2.0 2.2 2.2 D Dimer: Results from last 7 days [...] Date HGBA1C 6.3 (H) 09/04/2012 ABG: CV TESTING HISTORY: ECHO: Echo complete W/O contrast Result Date: 01/14/2025 Left Ventricle: Left ventricle appears normal in size. There is mild asymmetric increased wall thickness/hypertrophy. Systolic function is normal with an ejection fraction of 55-60%. The quantitativeEF by 2D Mitchell biplane is 61%. No obvious regional wall motion abnormalities. Unable to assess diastolic function due to atrial fibrillation/flutter. Right Ventricle: Right ventricular size appearsnormal. The right ventricular basal diameter is 36.0 mm. Normal systolic excursion velocity by TDI (>9.5 cm/s). Tricuspid Valve: There is moderate regurgitation. There is no evidence of tricuspid valve stenosis. There is moderate pulmonary hypertension. Mitral Valve: The leaflets are moderately t hickened. There is mild annular calcification. There is moderate regurgitation with a centrally directed jet. There is no evidence of mitral valve stenosis. STRESS: No results found. HOLTER: No results found. CARDIAC CATH: No results found. CAROTID: No results found. CXR: X-ray chest 1 view Result Date: 01/16/2025 Single view chest History: SOB. Chest pain. Comparison: 01/15/2025 Findings: Single portable view ofthe chest. Interval extubation. Right-sided PICC line in unchanged position. Cardiac silhouette is stable. New small left-sided pleural effusion with bibasilar atelectasis and mild interstitial edema. Impression: 1. New small left-sided pleural effusion with bibasilar atelectasis. 2. Interval extubation. Finalized by Suhas Arellano MD on 01/16/2025 10:20 AM X-ray chest 1 view Result Date: 01/15/2025 XR CHEST 1 VW Clinical Information: resp failure Comparison: 01/14/2025. IMPRESSION: * Unchanged lines and tubes. * Minimal basilar atelectasis, trace left effusion. * Cardiomegaly. Finalized by Jeb Luciano MD on 01/15/2025 7:50 AM X-ray chest 1 view Result Date: 01/14/2025 History: PICC line placement Technique: A portable single frontal view of the chest was obtained. Comparison: 01/14/2025 at 106. Findings: There is a PICC line approaching from the right with its tip this. Vena cava. An endotracheal tube is seen with its tip approximate 6.4 cm above the mellisa. An enteric tube is seen with its tip in the stomach however its side port is at the level of the gastroesophageal junction, retracted slightly since the previous examination. Advancement further the stomach is recommended. There is no evidence for active cardiovascular or pulmonary disease. Impression: * Right-sided PICC line has its tip in the superior vena cava * The enteric tube has retracted slightly since the previous examination and its side-port is now at the level the gastroesophageal junction * Endotracheal tube in place with its tip above the mellisa. Finalized by Reynaldo Decker MD on 01/14/2025 8:57 PM X-ray chest 1 view Result Date: 01/14/2025 XR CHEST 1 VW History: Postop. Check lines and tubes One view study. Comparison: 01/13/2025 Impression: * Gastric drainage tube has been placed. The side-port is near the EG junction. For more optimalpositioning please advance 5 cm. ET tube is visualized. The tip terminates just above the aortic knob. This is satisfactory in position. No other concerning change. No evidence of aspiration. No pneumothorax. No large effusion. Finalized by Marry Villareal MD on 01/14/2025 2:20 PM X-ray chest 1 view Result Date: [...] Bryon Boucher MD on 01/12/2025 7:21 PM PHYSICAL EXAM Admission Weight: Weight: 83.2 kg (183 lb 6.8 oz) I/O last 3 completed shifts: In: 3840.2 [I.V.:2667.8; IV Piggyback:1172.4] Out: 4650 [Urine:4515; Drains:135] Weight change: Wt Readings from Last 3 Encounters: 01/15/25 84.8 kg (186 lb 15.2 oz) 01/14/25 83.2 kg (183 lb 6.8 oz) 05/19/24 80.5 kg (177 lb 6.4 oz) Vitals: Vitals: 01/17/25 0930 01/17/25 1000 01/17/25 1009 01/17/25 1025 BP: 117/73 136/85 Pulse: 117 (!) 126 (!) 132 116 Resp: (!) 26 (!) 28 (!) 28 25 Temp: TempSrc: SpO2: 94% (!) 84% (!) 84% 90% Weight: Height: Admit Weight Weight: 83.2 kg (183 lb 6.8 oz) Last 3 Weights Last 3 Weight Readings 01/14/25 1524 01/15/25 0500 Weight: 83.2 kg (183 lb 6.8 oz) 84.8 kg (186 lb 15.2 oz) Body mass index is 26.82 kg/m??. INTAKE/OUTPUT I/O last 3 completed shifts: In: 3840.2 [I.V.:2667.8; IV Piggyback:1172.4] Out: 4650 [Urine:4515; Drains:135] Intake/Output Summary (Last 24 hours) at 01/17/2025 1102 Last data filed at 01/17/2025 0824 Gross per 24 hour Intake 2093.02 ml Output 3340 ml Net -1246.98 ml General appearance: Alert oriented and cooperative, In no acute distress Lungs: Reduced breath sounds at the bases bilaterally, no use of accessory muscles Heart:: Irregularly irregular with normal S1 and S2, no murmurs and no gallops. Extremities: No edema Neurologic: Oriented to time, person and place, affect appropriate, no focal/major motor or sensorydefects noted Psychiatric: Appropriate mood, memory and judgment ASSESSMENT Incarcerated hernia/bowel perf s/p laparotomy, LIH repair, Left orchiectomy, omentectomy, and Tracy's procedure 01/14/25 Paroxysmal atrial fibrillation with RVR on home Eliquis NICM with recovered EF 61% TTE 01/14/2025 Mod MR, mod TR Nonobstructive CAD [facility] 2012 Mechanical fall-> rhabdomyolysis Hx CVA s/p lytic therapy PAD Acute kidney injury PLAN Heart rates not well controlled on scheduled IV Lopressor. Recommend resuming diltiazem drip and target heart rate less than 110. Can increase dose of Lopressor to 5 mg IV q.4 hours We will transition him to oral Eliquis once able to tolerate p.o. meds. Switch to p.o. meds, home dose Lopressor once able to tolerate oral meds. Recommend initiation of statins given patient's history of PA D, CVA as well as aortic arthrosclerosis Above plan discussed with the patient as well as the nursing staff at the time of rounds. RADU CERDA MD This note was completed using a voice armature inspector system. Every effort was made to ensure accuracy. However, inadvertent computerized armature inspector errors may be present. * Laura Cobian MD - 01/17/2025 10:08 AM EDT Images from the original note were not included. Daily Progress Note ICU Patient's name: Paul Guerrero Patient's Date of : 1950 Date of Admission: 01/14/2025 3:03 PM Length of stay during current admission: 3 Primary Care Physician: NO PCP, NO PCP Code Status: Full Code POD#3 Laparotomy, LIH repair, Left orchiectomy, omentectomy, and Tracy's procedure Subjective: Overnight Events: Remains on cardizem gtt for rate control., heparin gtt started yesterday. Worsening respiratory status, escalating O2 requirement, 13L NC. Lasix x 1 yesterday for new left effusion.Colostomy with some gas this am. Some mild psychosis overnight. Awake & following commands: [] No [x] Yes Current Ventilation Status: [] Ventilator [] BIPAP [x] Nasal Cannula 13L [] Room Air Sedation: [x] No Sedation [] Propofol gtt [] Versed gtt [] Ativan gtt [] Fentanyl gtt Diarrhea: [x] No [] Yes (C. Difficile status: [] Positive [] Negative [] Pending) Vasopressors: [x] No [] Yes If yes - [] Levophed [] Dopamine [] Vasopressin [] Dobutamine [] Phenylephrine [] Epinephrine Central lines: [x] No [] Yes (Date of Insertion: 01/14/25) Triple lumen PICC If yes - [] Right IJ [] Left IJ [] Right Femoral [] Left Femoral [] Right Subclavian [] Left Subclavian Blackwell Catheter: [] No [x] Yes (Date of Insertion: 01/14/25) Urine output: [x] Good [] Low [] Anuric Objective: Vitals: 01/17/25 1000 BP: 136/85 Pulse: (!) 126 Resp: (!) 28 Temp: SpO2: (!) 84% Temp: [36.3 ??C (97.3 ??F)-37 ??C (98.6 ??F)] 36.9 ??C (98.5 ??F) Pulse: [74-126] 126 Resp: [11-30] 28 BP: (105-136)/(63-93) 136/85 SpO2: [69 %-100 %] 84 % O2 Device: Nasal cannula O2 Flow Rate (L/min): [4 L/min-15 L/min] 13 L/min No Known Allergies Intake/Output last 3 shifts: I/O last 3 completed shifts: In: 3840.2 [I.V.:2667.8; IV Piggyback:1172.4] Out: 4650 [Urine:4515; Drains:135] Intake/Output this shift: I/O this shift: In: - Out: 150 [Urine:150] Dietary Orders (From admission, onward) Start Ordered 01/17/25905 Adult diet Clear Liquid Diet effective now Question: Diet Type: Answer: Clear Liquid 01/17/25904 Physical Exam General Appearance: Awake, Alert & Oriented x3, No Acute Distress Pulmonary: Labored breathing, some dyspnea with talking. Diminished BS throughout, no obvious crackles Cardiac: Irregular rate and rhythm. Tachy, Nl S1 and S2 Abdomen: ND, BS +, compressible, Midline and left inguinal incisions well approximated. LLQ RAAD serous drainage . Colostomy pink and healthy,edematous, easily probed, some sweat and gas in the bag. Extremity: No edema bilateral lower extremities, warm and well perfused, bilat knee abrasions Genitalia. Scrotal edema /induration improved Skin: Dry. No rashes. Eyes: Non-icteric Incisions: Clean, dry, and intact. Lines, Drains, Tubes: RAAD, PICC, PIV x 2 Laboratory Data: Lab Results Component Value Date WBC 18.2 (H) 01/17/2025 HGB 12.0 (L) 01/17/2025 HCT 35.7 (L) 01/17/2025 MCV 94 01/17/2025 PLT 377 01/17/2025 Lab Results Component Value Date GLU 122 (H) 01/17/2025 CALCIUM 8.6 01/17/2025 K 4.0 01/17/2025 CO2 30 01/17/2025 CL 101 01/17/2025 BUN 43 (H) 01/17/2025 CREATININE 1.07 01/17/2025 No results found for: AMYLASE No results found for: LIPASE Lab Results Component Value Date ALT 38 01/17/2025 AST 25 01/17/2025 ALKPHOS 67 01/17/2025 Lab Results Component Value Date INR 1.6 (H) 01/16/2025 INR 2.1 (H) 01/12/2025 INR 1.1 07/18/2016 PROTIME 18.3 (H) 01/16/2025 PROTIME 24.7 (H) 01/12/2025 PROTIME 12.7 (H) 07/18/2016 acetaminophen, 1,000 mg, intravenous, Q6H cefTRIAXone (ROCEPHIN) IV, 1,000 mg, intravenous, Q24H chlorhexidine, 15 mL, mouth/throat, BID famotidine, 20 mg, intravenous, Q12H metoprolol (LOPRESSOR) IV, 5 mg, intravenous, Q6H RAYSA metroNIDAZOLE, 500 mg, intravenous, Q12H [COMPLETED] Consult PICC nurse - PICC, , , Once AND sodium chloride, 10 mL, intravenous, Q12H AND sodium chloride, 10 mL, intravenous, PRN AND sodium chloride, 20 mL, intravenous, PRN acetaminophen alum-mag hydroxide-simeth heparin (porcine) HYDROmorphone HYDROmorphone levalbuterol magnesium sulfate magnesium sulfate metoprolol (LOPRESSOR) IV ondansetron potassium chloride OR potassium chloride OR potassium chloride IV (Adult) sennosides-docusate sodium [COMPLETED] Consult PICC nurse - PICC AND sodium chloride AND sodium chloride AND sodium chloride Radiology: X-ray chest 1 view Result Date: 01/16/2025 Single view chest History: SOB. Chest pain. Comparison: 01/15/2025 Findings: Single portable view ofthe chest. Interval extubation. Right-sided PICC line in unchanged position. Cardiac silhouette is stable. New small left-sided pleural effusion with bibasilar atelectasis and mild interstitial edema. Impression: 1. New small left-sided pleural effusion with bibasilar atelectasis. 2. Interval extubation. Finalized by Suhas Arellano MD on 01/16/2025 10:20 AM Principal Problem: Acute respiratory failure with hypoxia (CMS-HCC) Active Problems: Paroxysmal atrial fibrillation (CMS-HCC) Cardiomyopathy, nonischemic (CMS-HCC) Atrial fibrillation with rapid ventricular response (CMS-HCC) A-fib (CMS-HCC) ELLY (acute kidney injury) Scrotal swelling Colostomy present (CMS-HCC) Fall Traumatic rhabdomyolysis History of CVA (cerebrovascular accident) Hypotension Septic shock (CMS-HCC) H/O unilateral orchiectomy H/O left inguinal hernia repair S/P partial resection of colon Assessment and Plan: Incarcerated LIH with contained sigmoid perforation. S/p Laparotomy , LIH repair, Omentectomy and Orchiectomy. Tracy's procedure - IV abx of Ceftriaxone and Flagyl -Asp cx E coli and strep gordonii, BC (-) 2d - RAAD out serous today - gas in colostomy appliance -allow clears -transition to oral pain medications 2. Traumatic blackwell attempt -Urology place 18F coude catheter -good urine outpt, non bloody 3. Acute respiratory failure with hypotension -Off pressor support -Resp status with escalating O2 requirements -I/S, encourage cough, PD to chest -OOB to the chair -May need further diuresis -Pulmonary following. 4 Afib with RVR -Rate controlled on Cardizem gtt -Heparin gtt -Cardiology following Prophylxis EPC Pepcid Plan discussed with Dr. Cobian - JOANA SANCHEZ 01/17/25 10:08 AM I, LAURA COBIAN MD, personally have seen and evaluated the patient and have also reviewed the note above, including the history, exam, and MDM. I have performed the [id number] diagnostic evaluation on this patient. My findings are as follows: he is awake and comfortably resting in ICU. RN reports hallucinations this AM, which appear to have resolved. UOP improved with lasix diuresis. Heart rhythm is still irregular but rate is controlled. Lungs are clear but he remains on 6L O2. Abdomen is soft, non-distended with a colostomy productive of stool. RAAD serous. Incisions intact. Left scrotal induration is substantially improved, but there is persistent left groin/thigh induration. I have reviewed the laboratory findings and imaging reports as noted above. I agree with the assessment andplan as written. Advanced to clear liquids. Continue antibiotics. * Javad Horvath MD - 01/17/2025 9:00 AM EDT Images from the original note were not included. [facility] [address] [place] [id number] Hospital Medicine Progress Note Patient: Paul Guerrero Date of : 1950 Room: PCP: NO PCP, NO PCP Admission date: 01/14/2025 3:03 PM Encounter date: 01/17/25 Hospital Day: 4 SUBJECTIVE Interval History: Status: worsened. No overnight events. Patient placed on 15 L NC. ABG obtain due to patient's altered mental status. Patient to be placed on high flow nasal cannula. Resume cardizem drip per cardiology. Review of Systems Constitutional: Negative for activity change, appetite change, chills, fatigue, fever and unexpected weight change. HENT: Negative for congestion, dental problem, hearing loss, rhinorrhea, sore throat, trouble swallowing and voice change. Eyes: Negative for visual disturbance. Respiratory: Negative for cough, shortness of breath and wheezing. Cardiovascular: Negative for chest pain, palpitations and leg swelling. Gastrointestinal: Negative for abdominal pain, blood in stool, constipation, diarrhea, nausea and vomiting. Genitourinary: Negative for difficulty urinating, dysuria, enuresis, frequency and hematuria. Musculoskeletal: Negative for arthralgias, joint swelling and myalgias. Skin: Negative for color change, rash and wound. Neurological: Positive for weakness. Negative for dizziness, seizures, syncope, speech difficulty, numbness and headaches. Hematological: Negative for adenopathy. Does not bruise/bleed easily. Psychiatric/Behavioral: Negative for dysphoric mood and sleep disturbance. The patient is not nervous/anxious. All other systems reviewed and are negative. OBJECTIVE BP 127/88 Pulse 113 Temp 36.9 ??C (98.5 ??F) (Oral) Resp 24 Ht 177.8 cm (5' 10 ) Wt 84.8 kg (186 lb 15.2 oz) SpO2 96% BMI 26.82 kg/m?? Temp: [36.8 ??C (98.2 ??F)-37 ??C (98.6 ??F)] 36.9 ??C (98.5 ??F) Pulse: [74-132] 113 Resp: [11-30] 24 BP: (105-141)/(63-93) 127/88 FiO2 (%): [80 %-90 %] 80 % SpO2: [84 %-100 %] 96 % O2 Device: Nasal cannula O2 Flow Rate (L/min): [9 L/min-40 L/min] 40 L/min Intake/Output Summary (Last 24 hours) at 01/17/2025 1326 Last data filed at 01/17/2025 1245 Gross per 24 hour Intake 2214.5 ml Output 3710 ml Net -1495.5 ml Physical Exam Vitals and nursing note reviewed. Constitutional: General: He is not in acute distress. Appearance: Normal appearance. He is well-developed. HENT: Head: Normocephalic and atraumatic. Right Ear: External ear normal. Left Ear: External ear normal. Nose: Nose normal. Right Sinus: No maxillary sinus tenderness or frontal sinus tenderness. Left Sinus: No maxillary sinus tenderness or frontal sinus tenderness. Mouth/Throat: Lips: [place]. Mouth: Mucous membranes are moist. Pharynx: Oropharynx is clear. Eyes: General: No scleral icterus. Extraocular Movements: Extraocular movements intact. Pupils: Pupils are equal, round, and reactive to light. Neck: Vascular: No carotid bruit or JVD. Cardiovascular: Rate and Rhythm: Normal rate and regular rhythm. Pulses: Radial pulses are 2+ on the right side and 2+ on the left side. Heart sounds: Normal heart sounds, S1 normal and S2 normal. No murmur heard. No friction rub. No gallop. Pulmonary: Effort: Pulmonary effort is normal. Breath sounds: Normal breath sounds. No decreased air movement. No decreased breath sounds, wheezing, rhonchi or rales. Abdominal: General: Bowel sounds are normal. Palpations: Abdomen is soft. Tenderness: There is no abdominal tenderness. Comments: Colostomy in place Musculoskeletal: Cervical back: Full passive range of motion without pain. Right lower leg: No edema. Left lower leg: No edema. Skin: General: Skin is warm and dry. Capillary Refill: Capillary refill takes less than 2 seconds. Findings: No erythema, rash or wound. Medications Scheduled: acetaminophen, 1,000 mg, oral, Q6H RAYSA cefTRIAXone (ROCEPHIN) IV, 1,000 mg, intravenous, Q24H chlorhexidine, 15 mL, mouth/throat, BID famotidine, 20 mg, intravenous, Q12H metoprolol tartrate, 50 mg, oral, BID metroNIDAZOLE, 500 mg, intravenous, Q12H [COMPLETED] Consult PICC nurse - PICC, , , Once AND sodium chloride, 10 mL, intravenous, Q12H AND sodium chloride, 10 mL, intravenous, PRN AND sodium chloride, 20 mL, intravenous, PRN Infusions: diltiazem, 2.5-20 mg/hr, Last Rate: 5 mg/hr (01/17/25 1245) heparin, 300-3,500 Units/hr, Last Rate: 1,000 Units/hr (01/17/25 1245) As Needed: acetaminophen alum-mag hydroxide-simeth heparin (porcine) HYDROmorphone levalbuterol magnesium sulfate magnesium sulfate metoprolol (LOPRESSOR) IV ondansetron oxyCODONE oxyCODONE potassium chloride OR potassium chloride OR potassium chloride IV (Adult) sennosides-docusate sodium [COMPLETED] Consult PICC nurse - PICC AND sodium chloride AND sodium chloride AND sodium chloride Allergies: Patient has no known allergies. Code Status: Full Code Labs Recent Results (from the past 24 hours) Hemoglobin Collection Time: 01/16/25 4:41 PM Result Value Ref Range Hemoglobin 11.3 (L) 13 - 17 g/dL Platelet count Collection Time: 01/16/25 4:41 PM Result Value Ref Range Platelet Count 335 150 - 450 X10E9/L MPV 8.3 7 - 12 fL APTT Collection Time: 01/16/25 4:41 PM Result Value Ref Range APTT 30 26 - 37 sec Protime & INR Collection Time: 01/16/25 4:41 PM Result Value Ref Range PROTIME 18.3 (H) 9.8 - 13.2 sec INR 1.6 (H) 0.9 - 1.2 Anti XA unfractionated heparin Collection Time: 01/16/25 10:00 PM Result Value Ref Range ANTI XA UFH 0.32 0.30 - 0.70 IU/mL Anti XA unfractionated heparin Collection Time: 01/17/25 4:05 AM Result Value Ref Range ANTI XA UFH 0.32 0.30 - 0.70 IU/mL Comprehensive metabolic panel Collection Time: 01/17/25 4:05 AM Result Value Ref Range SODIUM 141 134 - 146 mmol/L POTASSIUM 4.0 3.5 - 5.0 mmol/L CHLORIDE 101 98 - 109 mmol/L CARBON DIOXIDE 30 22 - 32 mmol/L ANION GAP 10 5 - 15 mmol/L BLOOD UREA NITROGEN 43 (H) 5 - 27 mg/dL CREATININE 1.07 0.70 - 1.20 mg/dL GLUCOSE 122 (H) 65 - 99 mg/dL CALCIUM 8.6 8.5 - 10.5 mg/dL TOTAL PROTEIN 5.9 (L) 6.0 - 8.0 g/dL ALBUMIN 2.6 (L) 3.2 - 5.3 g/dL ALKALINE PHOSPHATASE 67 39 - 130 U/L AST 25 <=41 U/L ALT 38 <=40 U/L BILIRUBIN,TOTAL 0.4 0.3 - 1.2 mg/dL EGFR Non-Race Dependent 73 >=60 ml/min/1.73sq.m Magnesium Collection Time: 01/17/25 4:05 AM Result Value Ref Range MAGNESIUM 2.0 1.8 - 2.6 mg/dL CBC auto differential Collection Time: 01/17/25 4:05 AM Result Value Ref Range WBC 18.2 (H) 4 - 11 x10E9/L RBC Count 3.79 (L) 4.1 - 5.7 X10E12/L Hemoglobin 12.0 (L) 13 - 17 g/dL Hematocrit 35.7 (L) 39 - 50 % MCV 94 80 - 100 fL MCH 31.5 27 - 34 pg MCHC 33.5 32 - 36 g/dL RDW 14.6 11.5 - 15 % Platelet Count 377 150 - 450 X10E9/L MPV 8.1 7 - 12 fL Neutrophils % 93.7 % Lymphocytes % 1.7 % Monocytes % 4.3 % Eosinophils % 0.0 % Basophils % 0.3 % Neutrophils Absolute (A) 17.0 (H) 1.5 - 6.6 10*3/uL Lymphocytes Absolute 0.3 (L) 1.0 - 3.5 10*3/uL Monocytes Absolute 0.8 0.0 - 0.9 10*3/uL Eosinophils Absolute 0.0 0.0 - 0.4 10*3/uL Basophils Absolute 0.0 0.0 - 0.2 10*3/uL RBC Morphology Normal Differential Type AUTOMATED DIFFERENTIAL CK Total Collection Time: 01/17/25 4:05 AM Result Value Ref Range CPK 61 24 - 195 U/L Myoglobin, serum Collection Time: 01/17/25 4:05 AM Result Value Ref Range SERUM MYOGLOBIN 179.6 (H) 17.4 - 105.7 ng/mL Blood Gas, Arterial Collection Time: 01/17/25 11:34 AM Result Value Ref Range Sample type ARTERIAL pH, Arterial 7.394 7.350 - 7.450 pCO2, Arterial 51.6 (H) 35.0 - 45.0 mmHg PO2, Arterial 55 (L) 80 - 100 mmHg Base, Excess 5.0 (H) 0.0 - 2.0 mmol/L HCO3, Arterial 31.5 (H) 22.0 - 26.0 mmol/L %O2 Saturation, Arterial 87.0 (L) >90.0 % Temo's test Pass SPO2 90 % Sample site L Rad Insp. O2 conc. 76 % Source Of Oxygen NC Ammonia Collection Time: 01/17/25 12:12 PM Result Value Ref Range AMMONIA 20 11 - 35 umol/L Radiology X-ray chest 1 view Result Date: 01/17/2025 CLINICAL INFORMATION: Shortness of breath COMPARISON: Chest radiograph dated 01/16/2025. VIEWS: 1. FINDINGS: Interval worsening with large left basilar infiltrate and atelectasis. Probable moderate left pleural effusion. Cardiac and mediastinal shadows are normal. No pneumothorax. No free air below the diaphragm. IMPRESSION: Interval worsening with large left basilar infiltrate and atelectasis. Probable moderate left pleural effusion. Finalized by Ellen Angelo MD on 01/17/2025 12:10 PM HOSPITAL PROBLEM LIST Principal Problem: Acute respiratory failure with hypoxia (CMS-HCC) Active Problems: Paroxysmal atrial fibrillation (CMS-HCC) Cardiomyopathy, nonischemic (CMS-HCC) Atrial fibrillation with rapid ventricular response (CMS-HCC) A-fib ([facility]) ELLY (acute kidney injury) Scrotal swelling Colostomy present ([facility]) Fall Traumatic rhabdomyolysis History of CVA (cerebrovascular accident) Hypotension Septic shock ([facility]) H/O unilateral orchiectomy H/O left inguinal hernia repair S/P partial resection of colon ASSESSMENT & PLAN Acute respiratory failure with hypoxia Hypotension Patient remains intubated postop Transferred to [facility] from [place] Pulmonology consulted Extubated 01/15 Now on 15 L NC Starting high flow Off levophed Scrotal swelling Incarcerated hernia Colostomy creation General surgery consulted OR at [place] 01/[address] James Lanier/Lydia for intraabdominal coverage Acute kidney injury Traumatic rhabdomyolysis Trend CK/Myoglobin daily Creatinine normalized Traumatic blackwell insertion Urology consulted Dr. Stevenson with Urology was spoke to at [place] intraop Requested no Blackwell insertion attempts until Urology can see patient Blackwell placed with urology 01/14 with urology Paroxysmal atrial fibrillation Remains on Cardizem drip at this time On Eliquis and metoprolol at home Continue heparin drip DC planning: remains on 15 L NC, resumed cardizem drip today per cardiology. Medically Ready for Discharge: Anticipated in 2-4 Days PAT Ybarra 01/17/2025 1:26 PM [facility] 7AM-7PM & 7PM-7AM: EpicChat or page through On[employer]. PAT Ybarra 01/17/25 1331 Physician Attestation I, Javad Horvath MD, personally performed a face to face [...] I agree with the plan as noted. * Radu Cerda MD - 01/16/2025 3:10 PM EDT Images from the original note were not included. [facility] [address] [place] [address] PROGRESS NOTE Paul Guerrero did not have any overnight events. Remains in AFib; diltiazem drip at 2.5 Currently denies any chest pain, shortness breath or palpitations. No family member at bedside SUBJECTIVE Allergies: No Known Allergies CURRENT MEDICATIONS acetaminophen, 1,000 mg, intravenous, Q6H cefTRIAXone (ROCEPHIN) IV, 1,000 mg, intravenous, Q24H chlorhexidine, 15 mL, mouth/throat, BID famotidine, 20 mg, intravenous, Q12H metoprolol (LOPRESSOR) IV, 5 mg, intravenous, Q6H RAYSA metroNIDAZOLE, 500 mg, intravenous, Q12H [COMPLETED] Consult PICC nurse - PICC, , , Once AND sodium chloride, 10 mL, intravenous, Q12H AND sodium chloride, 10 mL, intravenous, PRN AND sodium chloride, 20 mL, intravenous, PRN CONTINUOUS INFUSIONS diltiazem, 2.5-20 mg/hr, Last Rate: 5 mg/hr (01/16/25 1449) Review of Systems: As above OBJECTIVE CBC: Results from last 7 days Lab Units 01/16/25 0428 01/15/25 0310 01/14/25 1253 WBC x10E9/L 16.6* 14.4* 13.3* HEMOGLOBIN g/dL 10.5* 10.3* 10.5* HEMATOCRIT % 31.8* 30.7* 31.1* MCV fL 94 93 94 PLATELETS X10E9/L 301 246 194 BMP: Results from last 7 days Lab Units 01/16/25 0428 01/15/25 0310 01/14/25 1252 01/14/25 0425 SODIUM mmol/L 140 134 133* 132* POTASSIUM mmol/L 4.6 4.2 4.6 4.5 CHLORIDE mmol/L 105 102 99 96* CO2 mmol/L 26 26 24 23 BUN mg/dL 47* 40* 42* 43* CREATININE mg/dL 1.30* 1.35* 1.40* 1.80* CALCIUM mg/dL 8.7 8.2* 8.3* 8.8 MAGNESIUM mg/dL 2.2 2.2 -- 2.6 PT/INR: Results from last 7 days Lab Units 01/12/25 1711 PROTIME sec 24.7* INR 2.1* APTT: MAG: Results from last 7 days Lab Units 01/16/25 0428 01/15/25 0310 01/14/25 0425 MAGNESIUM mg/dL 2.2 2.2 2.6 D Dimer: Results from last 7 days [...] Date HGBA1C 6.3 (H) 09/04/2012 ABG: CV TESTING HISTORY: ECHO: Echo complete W/O contrast Result Date: 01/14/2025 Left Ventricle: Left ventricle appears normal in size. There is mild asymmetric increased wall thickness/hypertrophy. Systolic function is normal with an ejection fraction of 55-60%. The quantitativeEF by 2D Mitchell biplane is 61%. No obvious regional wall motion abnormalities. Unable to assess diastolic function due to atrial fibrillation/flutter. Right Ventricle: Right ventricular size appearsnormal. The right ventricular basal diameter is 36.0 mm. Normal systolic excursion velocity by TDI (>9.5 cm/s). Tricuspid Valve: There is moderate regurgitation. There is no evidence of tricuspid valve stenosis. There is moderate pulmonary hypertension. Mitral Valve: The leaflets are moderately t hickened. There is mild annular calcification. There is moderate regurgitation with a centrally directed jet. There is no evidence of mitral valve stenosis. STRESS: No results found. HOLTER: No results found. CARDIAC CATH: No results found. CAROTID: No results found. CXR: X-ray chest 1 view Result Date: 01/16/2025 Single view chest History: SOB. Chest pain. Comparison: 01/15/2025 Findings: Single portable view ofthe chest. Interval extubation. Right-sided PICC line in unchanged position. Cardiac silhouette is stable. New small left-sided pleural effusion with bibasilar atelectasis and mild interstitial edema. Impression: 1. New small left-sided pleural effusion with bibasilar atelectasis. 2. Interval extubation. Finalized by Suhas Arellano MD on 01/16/2025 10:20 AM X-ray chest 1 view Result Date: 01/15/2025 XR CHEST 1 VW Clinical Information: resp failure Comparison: 01/14/2025. IMPRESSION: * Unchanged lines and tubes. * Minimal basilar atelectasis, trace left effusion. * Cardiomegaly. Finalized by Jeb Luciano MD on 01/15/2025 7:50 AM X-ray chest 1 view Result Date: 01/14/2025 History: PICC line placement Technique: A portable single frontal view of the chest was obtained. Comparison: 01/14/2025 at 106. Findings: There is a PICC line approaching from the right with its tip this. Vena cava. An endotracheal tube is seen with its tip approximate 6.4 cm above the mellisa. An enteric tube is seen with its tip in the stomach however its side port is at the level of the gastroesophageal junction, retracted slightly since the previous examination. Advancement further the stomach is recommended. There is no evidence for active cardiovascular or pulmonary disease. Impression: * Right-sided PICC line has its tip in the superior vena cava * The enteric tube has retracted slightly since the previous examination and its side-port is now at the level the gastroesophageal junction * Endotracheal tube in place with its tip above the mellisa. Finalized by Reynaldo Decker MD on 01/14/2025 8:57 PM X-ray chest 1 view Result Date: 01/14/2025 XR CHEST 1 VW History: Postop. Check lines and tubes One view study. Comparison: 01/13/2025 Impression: * Gastric drainage tube has been placed. The side-port is near the EG junction. For more optimalpositioning please advance 5 cm. ET tube is visualized. The tip terminates just above the aortic knob. This is satisfactory in position. No other concerning change. No evidence of aspiration. No pneumothorax. No large effusion. Finalized by Marry Villareal MD on 01/14/2025 2:20 PM X-ray chest 1 view Result Date: [...] Bryon Boucher MD on 01/12/2025 7:21 PM PHYSICAL EXAM Admission Weight: Weight: 83.2 kg (183 lb 6.8 oz) I/O last 3 completed shifts: In: 3926.8 [I.V.:3385; IV Piggyback:541.8] Out: 2345 [Urine:2115; Drains:230] Weight change: Wt Readings from Last 3 Encounters: 01/15/25 84.8 kg (186 lb 15.2 oz) 01/14/25 83.2 kg (183 lb 6.8 oz) 05/19/24 80.5 kg (177 lb 6.4 oz) Vitals: Vitals: 01/16/25 1415 01/16/25 1430 01/16/25 1445 01/16/25 1500 BP: 115/71 115/68 117/78 117/65 Pulse: 90 88 92 93 Resp: (!) 30 (!) 27 22 21 Temp: TempSrc: SpO2: 92% 90% 93% 97% Weight: Height: Admit Weight Weight: 83.2 kg (183 lb 6.8 oz) Last 3 Weights Last 3 Weight Readings 01/14/25 1524 01/15/25 0500 Weight: 83.2 kg (183 lb 6.8 oz) 84.8 kg (186 lb 15.2 oz) Body mass index is 26.82 kg/m??. INTAKE/OUTPUT I/O last 3 completed shifts: In: 3926.8 [I.V.:3385; IV Piggyback:541.8] Out: 2345 [Urine:2115; Drains:230] Intake/Output Summary (Last 24 hours) at 01/16/2025 1510 Last data filed at 01/16/2025 1449 Gross per 24 hour Intake 3020.4 ml Output 2465 ml Net 555.4 ml General appearance: Alert oriented and cooperative, In no acute distress Lungs: Reduced breath sounds at the bases bilaterally, no use of accessory muscles Heart:: Irregularly irregular with normal S1 and S2, no murmurs and no gallops. Extremities: No edema Neurologic: Oriented to time, person and place, affect appropriate, no focal/major motor or sensorydefects noted Psychiatric: Appropriate mood, memory and judgment ASSESSMENT Incarcerated hernia/bowel perf s/p laparotomy, LIH repair, Left orchiectomy, omentectomy, and Tracy's procedure 01/14/25 Paroxysmal atrial fibrillation with RVR on home Eliquis NICM with recovered EF 61% TTE 01/14/2025 Mod MR, mod TR Nonobstructive CAD [facility] 2013 Mechanical fall-> rhabdomyolysis Hx CVA s/p lytic therapy PAD Acute kidney injury PLAN Recommend resuming heparin drip, cleared by General surgery We will transition him to oral Eliquis once able to tolerate p.o. meds. Continue IV Cardizem for rate control. Switch to p.o. meds, home dose Lopressor once able to tolerate oral meds. Recommend initiation of statins given patient's history of PA D, CVA as well as aortic arthrosclerosis Above plan discussed with the patient as well as the nursing staff at the time of rounds. RADU CERDA MD This note was completed using a voice armature inspector system. Every effort was made to ensure accuracy. However, inadvertent computerized armature inspector errors may be present. * Travis Agrawal MD - 01/16/2025 12:29 PM EDT Images from the original note were not included. Pulmonary Progress Note Patient - Paul Guerrero Age - 74 y.o. - 1950 [id number] Date of Admission - 01/14/2025 3:03 PM Consulting Service/Physician Consulting: Consulting Providers Provider Service Specialty Laura Cobian MD -- General Surgery Travis Agrawal MD Z Pulmonology Pulmonary Disease [facility] -- Cardiology Hnaane Marie MD -- Urology Primary Care Physician: NO PCP, NO PCP REASON FOR VISIT: resp failure, hypotension REVIEW OF SYMPTOMS: Cough++, unable to expectorate Denies chest pain, SOB Events since last visit : None Past Medical History: Past Medical History: Diagnosis [place] [place]25 admission Acute renal failure (ARF) occured at time of GI bleed Atrial fibrillation [place] Bluish skin discoloration CHF [place]congestive heart failure) [place] 2012 initial EF 15 % // last ECHO 55 % Cholecystitis Contracture of finger joint Patient had an accident on a ladder causing deformity and this eventually developed into a contracture. Patient elected not to have surgery. 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 / [facility] / Dr Bruce/ CTA Occult blood in stools abn fit test Peptic ulceration GI bleed Pneumonia Respiratory failure [place] occured at time of GI bleed Stroke [place] [place] 06/2016 rx with TPA , Past Surgical History: Procedure Laterality Date CARDIAC CATHETERIZATION COLONOSCOPY diverticulosis / lg ingunial hernia CREATION COLOSTOMY Left 01/14/2025 Performed by Delmar Ramirez MD at [facility] ESOPHAGOGASTRODUODENOSCOPY severe errosis gastritis and duodenitis ORCHIECTOMY Left 01/14/2025 Performed by Delmar Ramirez MD at [facility] REPAIR HERNIA INGUINAL Left 01/14/2025 Performed by Delmar Ramirez MD at [facility] TONSILLECTOMY Social History: Social History Socioeconomic History Marital status: Single [...] Resource Strain: Not on file Food Insecurity: Patient Unable To Answer (01/15/2025) Hunger Screening Food Insecurity - Worry: Patient unable to answer Food Insecurity - Inability: Patient unable to answer Transportation Needs: Patient Unable To Answer (01/14/2025) PRAPARE - Transportation Lack of Transportation (Medical): Patient unable to answer Lack of Transportation (Non-Medical): Patient unable to answer Physical Activity: Not on file Stress: Not on file Social Connections: Not on file Interpersonal Safety: Patient Unable To Answer (01/14/2025) Humiliation, Afraid, Rape, and Kick questionnaire Fear of Current or Ex-Partner: Patient unable to answer Emotionally Abused: Patient unable to answer Physically Abused: Patient unable to answer Sexually Abused: Patient unable to answer Housing Instability: Patient Unable To Answer (01/14/2025) Housing Instability Housing Instability: Patient unable to answer SUBJECTIVE VITALS height is 177.8 cm (5' 10 ) and weight is 84.8 kg (186 lb 15.2 oz). His oral temperature is 36.3 ??C (97.3 ??F). His blood pressure is 110/63 and his pulse is 98. His respiration is 24 and oxygen saturation is 97%. Temperature Range: Temp (24hrs), Av.6 ??C (97.9 ??F), Min:36.3 ??C (97.3 ??F), Max:37 ??C (98.6??F) BP Range: Systolic (24hrs), Av , Min:98 , Max:130 Pulse Range: Pulse Av.8 Min: 80 Max: 204 Respiration Range: Resp Av.4 Min: 8 Max: 33 Current Pulse Ox: Temp: 36.3 ??C (97.3 ??F) 24HR Pulse Ox Range: Temp Av.8 ??C (98.2 ??F) Min: 36.1 ??C (97 ??F) Max: 38.2 ??C (100.8 ??F) Oxygen Amount and Delivery: O2 Device: Nasal cannula O2 Flow Rate (L/min): 15 L/min Wt Readings from Last 3 Encounters: 01/15/25 84.8 kg (186 lb 15.2 oz) 01/14/25 83.2 kg (183 lb 6.8 oz) 05/19/24 80.5 kg (177 lb 6.4 oz) I/O (24 Hours) Intake/Output Summary (Last 24 hours) at 01/16/2025 1229 Last data filed at 01/16/2025 0612 Gross per 24 hour Intake 3703.61 ml Output 1335 ml Net 2368.61 ml Exam Cardizem gtt General Appearance - awake, alert O2 15L HEENT - normocephalic, atraumatic. Neck - Supple, trachea midline Lungs - Fair air entry bilaterally, breath sounds vesicular, no rhonchi, no rales or crackles Cardiovascular - Heart sounds are normal. IRRegular rate and rhythm. Rate 120-160 Abdomen - soft, nontender, nondistended, no masses or organomegaly Neurologic - There are no focal motor or sensory deficits Skin - no bruising or bleeding Extremities - no cyanosis, clubbing or edema Meds Current Facility-Administered Medications: acetaminophen (TYLENOL EXTRA STRENGTH) tablet 500 mg, 500 mg, oral, Q6H PRN, PAT Ybarra alum-mag hydroxide-simeth (MAALOX) 200-200-20 mg/5 mL suspension 30 mL, 30 mL, oral, PCHSPBrenda APRN-CNP cefTRIAXone (ROCEPHIN) 1,000 mg in sodium chloride 0.9 % 50 mL IVPB W/ADAPTER, 1,000 mg, intravenous, Q24H, PAT Ybarra, Stopped at 01/15/25 2040 chlorhexidine (PERIDEX) 0.12 % solution 15 mL, 15 mL, mouth/throat, BID, Travis Agrawal MD, 15 mL at01/15/25 0818 dilTIAZem (CARDIZEM) 100 mg in sodium chloride 0.9 % 100 mL (1 mg/mL) infusion- AV, 2.5-20 mg/hr, intravenous, Continuous, Lanny Evans MD, Last Rate: 5 mL/hr at 01/16/25 0857, 5 mg/hr at 857 famotidine (PF) (PEPCID) injection 20 mg, 20 mg, intravenous, Q12H, PAT Ybarra HYDROmorphone (PF) (DILAUDID) injection 0.5 mg, 0.5 mg, intravenous, Q3H PRN, JOANA Sanchez, 0.5 mg at 01/15/25 1531 HYDROmorphone (PF) (DILAUDID) injection 1 mg, 1 mg, intravenous, Q3H PRN, JOANA Sanchez levalbuterol (XOPENEX) nebulizer solution 1.25 mg, 1.25 mg, nebulization, Q4H PRN, Travis Agrawal MD, 1.25 mg at 01/16/25 1148 magnesium sulfate IVPB 2000 mg/50 mL in iso-osmotic water (40 mg/mL premix), 2,000 mg, intravenous,PRN, Brenda Millan APRN-DYLAN magnesium sulfate IVPB 4000 mg/100 mL in iso-osmotic water (40 mg/mL premix), 4,000 mg, intravenous, PRN, Brenda Millan APRN-DYLAN metoprolol (LOPRESSOR) injection 2.5 mg, 2.5 mg, intravenous, Q6H PRN, Alis Weems MD, 2.5 mgat 01/15/25 1540 metoprolol (LOPRESSOR) injection 5 mg, 5 mg, intravenous, Q6H RAYSA, Travis Agrawal MD metroNIDAZOLE (FLAGYL) IVPB 500 mg/100 mL in iso-osmotic sodium chloride (5 mg/mL premix), 500 mg, intravenous, Q12H, PAT Ybarra, Stopped at 01/16/25 0708 ondansetron (PF) (ZOFRAN) injection 4 mg, 4 mg, intravenous, Q4H PRN, Brenda Millan [employer]LEVATOR [employer]NER[employer]QU[employer]LYST potassium chloride (K-TAB,KLOR-CON) CR tablet 30-50 mEq, 30-50 mEq, oral, PRN OR potassium chloride (KAYCIEL) 20 mEq/15 mL solution 30-50 mEq, 30-50 mEq, oral, PRN OR potassium chloride IVPB 10 mEq/100 mL in water (0.1 mEq/mL premix), 10 mEq, intravenous, PRN, Brenda Millan [employer]LEVATOR [employer]NER[employer]QU[employer]LYST sennosides-docusate sodium (SENOKOT-S) 8.6-50 mg 1 tablet, 1 tablet, oral, Q12H PRN, Brenda Millan ELEVATOR RUNNER-DYLAN [COMPLETED] Consult PICC nurse - PICC, , , Once AND sodium chloride 0.9 % flush 10 mL, 10 mL, intravenous, Q12H, 10 mL at 01/16/25 0429 AND sodium chloride 0.9 % flush 10 mL, 10 mL, intravenous, PRN AND sodium chloride 0.9 % flush 20 mL, 20 mL, intravenous, PRN, Brenda Millan, ELEV[employer]QU[employer]NALYST sodium chloride 0.9 % infusion, 3 mL/hr, intra-arterial, Continuous, Travis Agrawal MD, Last Rate: 3mL/hr at 01/16/25 0207, 3 mL/hr at 01/16/25 0207 ALLERGIES: No Known Allergies Results from last 3 days Lab Units 01/16/25 0428 01/15/25 0310 01/14/25 1252 01/14/25 0425 01/13/25 1332 BUN mg/dL 47* 40* 42* 43* -- CREATININE mg/dL 1.30* 1.35* 1.40* 1.80* -- POTASSIUM mmol/L 4.6 4.2 4.6 4.5 3.9 CO2 mmol/L 26 26 24 23 -- CHLORIDE mmol/L 105 102 99 96* -- MAGNESIUM mg/dL 2.2 2.2 -- 2.6 3.0* AST U/L 28 34 48* 88* -- ALT U/L 35 35 38 59* -- ALK PHOS U/L 482* 60 57 84 -- No data from last 3 days. Results from last 3 days Lab Units 01/16/25 0428 01/15/25 0310 01/14/25 1253 01/14/25 0425 WBC x10E9/L 16.6* 14.4* 13.3* 32.8* HEMOGLOBIN g/dL 10.5* 10.3* 10.5* 13.1 HEMATOCRIT % 31.8* 30.7* 31.1* 40.0 PLATELETS X10E9/L 301 246 194 331 MCV fL 94 93 94 95 MCH pg 31.0 31.4 31.6 30.9 MCHC g/dL 32.9 33.8 33.7 32.7 RDW % 14.3 13.9 14.0 13.9 MONO ABS MAN 10*3/uL -- -- 0.4 1.0* EOS ABS AUTO 10*3/uL 0.0 0.0 -- -- Microbiology Results Procedure Component Value Units Date/Time Blood culture #1 [[id number]] Collected: 01/14/25 1328 Specimen: Blood, Venous Updated: 01/16/25 07 CULTURE RESULTS NO GROWTH AT 36 HOURS Blood culture #2 [[id number]] Collected: 01/14/25 1253 Specimen: Blood, Venous Updated: 01/16/25 0701 CULTURE RESULTS NO GROWTH AT 36 HOURS Anaerobic culture [[id number]] Collected: 01/14/25 1012 Specimen: Aspirate from Abdomen Updated: 01/15/25 0027 CULTURE RESULTS Culture in progress Aspirate culture includes gram stain [[id number]] (Abnormal) (Susceptibility) Collected: 01/14/25 1012 Specimen: Aspirate from Abdomen Updated: 01/16/25 0739 CULTURE RESULTS Culture in progress Rare Escherichia coli GRAM STAIN >25 White Blood Cells/LPF 0 Squamous Epithelial Cells/LPF Many Gram negative bacilli Many Gram positive coccobacilli Susceptibility Escherichia coli Not Specified AMP/SULBACTAM <=2.0 Susceptible Ampicillin 8.0 Susceptible Cefazolin (non-urinary) <=1.0 Susceptible Cefazolin (urinary) <=1.0 Susceptible Ceftriaxone <=0.25 Susceptible Ciprofloxacin <=0.06 Susceptible Gentamicin <=1.0 Susceptible Levofloxacin <=0.12 Susceptible PIPERACIL/TAZOBACTAM <=4.0 Susceptible Blood culture [[id number]] Collected: 01/12/25 1829 Specimen: Blood, Venous Updated: 01/15/25 2301 CULTURE RESULTS NO GROWTH 3 DAYS Blood culture [[id number]] Collected: 01/12/25 1723 Specimen: Blood, Venous Updated: 01/15/25 2301 CULTURE RESULTS NO GROWTH 3 DAYS SARS/FLU A+B/RSV by NAAT/Molecular (M4RT Collection Tube) [[id number]] (Normal) Collected: 01/12/25 1712 Specimen: Swab from Nasopharynx Updated: 01/12/25 1812 FLU A PCR Negative FLU B PCR Negative RSV BY PCR Negative SARS COV 2 BY PCR Not Detected Narrative: The Xpert Xpress SARS-CoV-2/Flu/RSV Plus test is [...] operators who are performing tests using either [employer] or [employer] systems and islimited to laboratories that meet [...] with specimenrepeat. Fact Sheet for Healthcare Providers: https://www.fda.gov/media/727891/download Fact Sheet for Patients: https://www.fda.gov/media/166426/download Glucose Results from last 7 days Lab Units 01/16/25 0428 01/15/25 0310 01/14/25 1252 01/14/25 0425 01/13/25 0437 01/12/25 1711 GLUCOSE mg/dL 118* 113* 130* 115* 129* 125* I/O last 3 completed shifts: In: 3926.8 [I.V.:3385; IV Piggyback:541.8] Out: 2345 [Urine:2115; Drains:230] Microbiology Results Procedure Component Value Units Date/Time Blood culture #1 [[id number]] Collected: 01/14/25 1328 Specimen: Blood, Venous Updated: 01/16/25 0701 CULTURE RESULTS NO GROWTH AT 36 HOURS Blood culture #2 [[id number]] Collected: 01/14/25 1253 Specimen: Blood, Venous Updated: 01/16/25 0701 CULTURE RESULTS NO GROWTH AT 36 HOURS Anaerobic culture [[id number]] Collected: 01/14/25 1012 Specimen: Aspirate from Abdomen Updated: 01/15/25 0027 CULTURE RESULTS Culture in progress Aspirate culture includes gram stain [[id number]] (Abnormal) (Susceptibility) Collected: 01/14/25 1012 Specimen: Aspirate from Abdomen Updated: 01/16/25 0739 CULTURE RESULTS Culture in progress Rare Escherichia coli GRAM STAIN >25 White Blood Cells/LPF 0 Squamous Epithelial Cells/LPF Many Gram negative bacilli Many Gram positive coccobacilli Susceptibility Escherichia coli Not Specified AMP/SULBACTAM <=2.0 Susceptible Ampicillin 8.0 Susceptible Cefazolin (non-urinary) <=1.0 Susceptible Cefazolin (urinary) <=1.0 Susceptible Ceftriaxone <=0.25 Susceptible Ciprofloxacin <=0.06 Susceptible Gentamicin <=1.0 Susceptible Levofloxacin <=0.12 Susceptible PIPERACIL/TAZOBACTAM <=4.0 Susceptible Blood culture [[id number]] Collected: 01/12/25 1829 Specimen: Blood, Venous Updated: 01/15/25 2301 CULTURE RESULTS NO GROWTH 3 DAYS Blood culture [[id number]] Collected: 01/12/25 1723 Specimen: Blood, Venous Updated: 01/15/25 2301 CULTURE RESULTS NO GROWTH 3 DAYS SARS/FLU A+B/RSV by NAAT/Molecular (M4RT Collection Tube) [[id number]] (Normal) Collected: 01/12/25 1712 Specimen: Swab from Nasopharynx Updated: 01/12/25 181 FLU A PCR Negative FLU B PCR Negative RSV BY PCR Negative SARS COV 2 BY PCR Not Detected Narrative: The Xpert Xpress SARS-CoV-2/Flu/RSV Plus test is [...] operators who are performing tests using either [employer] DX or [employer] systems and islimited to laboratories that meet [...] with specimenrepeat. Fact Sheet for Healthcare Providers: https://www.fda.gov/media/459420/download Fact Sheet for Patients: https://www.fda.gov/media/110801/download Lines/Drains PICC Triple Lumen 01/14/25 Right (Active) Precautions Standard precautions;Hand hygiene;Gloves 01/15/25714 Lumen 1 Vigil 01/15/25714 Lumen 1 Status Blood return noted;Flushed;Saline locked;Alcohol sponge cap changed 01/15/25714 Lumen 1 Needleless Cap Cap changed 01/15/25 0000 Lumen 1 Needleless Cap Change Due 01/19/25 01/15/25 0000 Lumen 2 Red 01/15/25714 Lumen 2 Status Blood return noted;Flushed;Infusing;Connections checked/tightened 01/15/25714 Lumen 2 Needleless Cap Initial cap placed 01/14/252006 Lumen 2 Needleless Cap Change Due 01/18/25 01/14/252006 Lumen 3 White 01/15/25714 Lumen 3 Status Blood return noted;Flushed;Infusing;Connections checked/tightened 01/15/25714 Lumen 3 Needleless Cap Cap changed 01/15/25 0000 Lumen 3 Needleless Cap Change Due 01/19/25 01/15/25 0000 Length bk (cm) 1 cm 01/14/252006 Extremity Circumference (cm) 27 cm 01/14/252006 Site Assessment Clean;Dry;Intact 01/15/25714 Dressing Type Occlusive;Transparent with CHG gel 01/15/25714 Dressing Status Clean;Dry;Intact 01/15/25714 Dressing Intervention Initial dressing 01/14/252006 Line Necessity Peripherally incompatible solution 01/15/25714 Line Necessity Reviewed With PAT Ybarra 01/14/252006 Patient Tolerance of Line Care Tolerated well 01/15/25 0000 Dressing Change Due (Non-Gauze) 01/21/25 01/14/252006 Peripheral IV 01/14/25 Left Antecubital (Active) Line Status Blood return noted;Flushed;Saline locked;Alcohol sponge cap changed 01/15/25714 Site Assessment Clean;Dry;Intact 01/15/25714 Dressing Type Occlusive;Transparent 01/15/25714 Dressing Status Clean;Dry;Intact 01/15/25714 Dressing Intervention Initial dressing 01/15/25714 Dressing Change Due (Non-Gauze) 01/22/25 01/15/25714 Peripheral IV 01/14/25 Right Hand (Active) Line Status Blood return noted;Flushed;Infusing;Connections checked/tightened 01/15/25714 Site Assessment Clean;Dry;Intact 01/15/25714 Dressing Type Occlusive;Transparent 01/15/25714 Dressing Status Clean;Dry;Intact 01/15/25714 Dressing Intervention Initial dressing 01/15/25714 Dressing Change Due (Non-Gauze) 01/22/25 01/15/25714 Closed/Suction Drain 01/14/25 1 Anterior;Left Other (Comment) Bulb (Active) Drain/Tube Status To bulb suction 01/15/25714 Drain Securement Sutured 01/15/25714 Dressing Type Gauze 01/15/25714 Dressing Status Clean;Dry;Intact 01/15/25714 Drainage Appearance Bloody 01/15/25714 Output (mL) 40 mL 01/15/25714 NG/OG Tube 01/14/25 Orogastric Mouth (Active) Placement Verification Gastric content 01/15/25714 Status Suction-low intermittent 01/15/25714 Site Assessment Clean;Dry;Intact 01/15/25714 Secured at (cm) 65 cm 01/15/25714 Securement Method Adhesive tape 01/15/25714 Dressing Status/Interventions Clean;Dry;Intact 01/15/25714 Drainage Appearance Bile 01/15/25714 Feeding? (Yes or No) No 01/15/25714 Colostomy 01/14/25 LLQ (Active) Stomal Appliance 1 piece 01/15/25714 Site Assessment Clean;Intact 01/15/25714 Peristomal Assessment Clean;Intact 01/15/25714 Stool Color Red 01/14/25 1515 Output (mL) 0 mL 08/22/25 0715 Urinary Catheter 01/14/25 Coude (Active) Catheter Status Patent 01/15/25 0715 Site Assessment Clean;Skin intact 01/15/25 0715 Collection Container Standard drainage bag/container 01/15/25 0715 Securement Method Right 01/15/25 0715 Tamper Evident Seal Intact No 01/15/25 0715 Indication for Continuation Strict I&O in critically ill patient 01/15/25 0715 Urine Color Yellow/straw 01/15/25 0715 Urine Appearance Clear 01/15/25 0715 Output (mL) 110 mL 01/15/25 0715 Bladder Instillation? No 01/15/25 0715 ETT 01/14/25 Cuffed Oral (Active) Secured at (cm) 23 cm 01/15/25 0818 Measured from Gums 01/15/25 0818 Secured Location Center 01/15/25 0818 Secured by Commercial tube campa 01/15/25 0818 Subglottic Port Yes 01/15/25 0818 Bite Block Yes 01/15/25 0818 Cuff Pressure (cm H2O) 30 cm H2O 01/15/25 0818 Site Condition Cool;Dry 01/15/25 0818 Subglottic Secretions Scant;Thin;Clear 01/15/25 0818 Subglottic Suction Frequency Intermittent suction 01/15/25 0818 Arterial Line 01/14/25 Right Radial (Active) Line Status Infusing;Pulsatile blood flow 01/15/25 0715 Line Interventions Leveled;Connections checked and tightened;Pressure bag maintained;Armboard 01/15/25 0715 Waveform Appropriate 01/15/25 07 Site Assessment Clean;Dry;Intact 01/15/25 07 Dressing Type Occlusive;Transparent with CHG gel 01/15/25 0715 Dressing Status Clean;Dry;Intact 01/15/25 0715 Dressing Intervention Initial dressing 01/15/25 0715 Color/Movement/Sensation Capillary refill less than 3 sec 01/15/25 0715 Patient Tolerance of Line Care Tolerated well 01/15/25 07 Line Necessity Invasive hemodynamic monitoring 01/15/25 07 Line Necessity Reviewed With CHRISTOS 01/14/251524 Dressing Change Due (Non-Gauze) 01/21/25 01/14/25 1525 X-ray chest 1 view Result Date: 01/16/2025 Single view chest History: SOB. Chest pain. Comparison: 01/15/2025 Findings: Single portable view ofthe chest. Interval extubation. Right-sided PICC line in unchanged position. Cardiac silhouette is stable. New small left-sided pleural effusion with bibasilar atelectasis and mild interstitial edema. Impression: 1. New small left-sided pleural effusion with bibasilar atelectasis. 2. Interval extubation. Finalized by Suhas Arellano MD on 01/16/2025 10:20 AM X-ray chest 1 view Result Date: 01/15/2025 XR CHEST 1 VW Clinical Information: resp failure Comparison: 01/14/2025. IMPRESSION: * Unchanged lines and tubes. * Minimal basilar atelectasis, trace left effusion. * Cardiomegaly. Finalized by Jeb Luciano MD on 01/15/2025 7:50 AM X-ray chest 1 view Result Date: 01/14/2025 History: PICC line placement Technique: A portable single frontal view of the chest was obtained. Comparison: 01/14/2025 at 106. Findings: There is a PICC line approaching from the right with its tip this. Vena cava. An endotracheal tube is seen with its tip approximate 6.4 cm above the mellisa. An enteric tube is seen with its tip in the stomach however its side port is at the level of the gastroesophageal junction, retracted slightly since the previous examination. Advancement further the stomach is recommended. There is no evidence for active cardiovascular or pulmonary disease. Impression: * Right-sided PICC line has its tip in the superior vena cava * The enteric tube has retracted slightly since the previous examination and its side-port is now at the level the gastroesophageal junction * Endotracheal tube in place with its tip above the mellisa. Finalized by Reynaldo Decker MD on 01/14/2025 8:57 PM X-ray chest 1 view Result Date: 01/14/2025 XR CHEST 1 VW History: Postop. Check lines and tubes One view study. Comparison: 01/13/2025 Impression: * Gastric drainage tube has been placed. The side-port is near the EG junction. For more optimalpositioning please advance 5 cm. ET tube is visualized. The tip terminates just above the aortic knob. This is satisfactory in position. No other concerning change. No evidence of aspiration. No pneumothorax. No large effusion. Finalized by Marry Villareal MD on 01/14/2025 2:20 PM Echo complete W/O contrast Result Date: 01/14/2025 Left Ventricle: Left ventricle appears normal in size. There is mild asymmetric increased wall thickness/hypertrophy. Systolic function is normal with an ejection fraction of 55-60%. The quantitativeEF by 2D Mitchell biplane is 61%. No obvious regional wall motion abnormalities. Unable to assess diastolic function due to atrial fibrillation/flutter. Right Ventricle: Right ventricular size appearsnormal. The right ventricular basal diameter is 36.0 mm. Normal systolic excursion velocity by TDI (>9.5 cm/s). Tricuspid Valve: There is moderate regurgitation. There is no evidence of tricuspid valve stenosis. There is moderate pulmonary hypertension. Mitral Valve: The leaflets are moderately t hickened. There is mild annular calcification. There is moderate regurgitation with a centrally directed jet. There is no evidence of mitral valve stenosis. Ultrasound retroperitoneal complete Result Date: 01/13/2025 US RETROPERITONEAL COMPLETE HISTORY: Acute kidney injury COMPARISON: 09/05/2012 TECHNIQUE: Grayscaleand color Doppler sonographic images of the urinary [...] Russell Brantley MD on 01/13/2025 3:08 PM Echo complete W/O contrast Result Date: 01/14/2025 Left Ventricle: Left ventricle appears normal in size. There is mild asymmetric increased wall thickness/hypertrophy. Systolic function is normal with an ejection fraction of 55-60%. The quantitativeEF by 2D Mitchell biplane is 61%. No obvious regional wall motion abnormalities. Unable to assess diastolic function due to atrial fibrillation/flutter. Right Ventricle: Right ventricular size appearsnormal. The right ventricular basal diameter is 36.0 mm. Normal systolic excursion velocity by TDI (>9.5 cm/s). Tricuspid Valve: There is moderate regurgitation. There is no evidence of tricuspid valve stenosis. There is moderate pulmonary hypertension. Mitral Valve: The leaflets are moderately t hickened. There is mild annular calcification. There is moderate regurgitation with a centrally directed jet. There is no evidence of mitral valve stenosis. ASSESSMENT / PLAN: Acute hypoxic resp failure On vent Extubated 01/15/25 O2 HFNC Hypotension - resolved Post op - 01/14/25 - repair of incarcerated inguinal hernia, colon resection, colostomy, orchiectomy A fib RVR Cardizem gtt ;lopressor 5 mg q6h DW RN, RT * Sonja Sims RPH - 01/16/2025 11:12 AM EDT [facility] Department of Pharmacy Pharmacist to Physician Communication The dose of famotidine has been changed to 20 mg every [address] [facility] approved renal dosing guidelines, based on an estimated creatinine clearance is 52.3 mL/min (A) (by C-G formula based on SCr of 1.3 mg/dL (H)). Thank you, Sonja Sims RPH * Javad Horvath MD - 01/16/2025 9:00 AM EDT Images from the original note were not included. [facility] [id number] [place] [id number] Hospital Medicine Progress Note Patient: Paul Guerrero Date of : 1950 Room: PCP: NO PCP, NO PCP Admission date: 01/14/2025 3:03 PM Encounter date: 01/16/25 Hospital Day: 3 SUBJECTIVE Interval History: Status: improved. No overnight events. Patient was extubated yesterday, remains on 2 L NC at this time. Continue Rocephin and Flagyl for intra-abdominal coverage. Resume home Eliquis once patient taking in oral intake. Review of Systems Constitutional: Negative for activity change, appetite change, chills, fatigue, fever and unexpected weight change. HENT: Negative for congestion, dental problem, hearing loss, rhinorrhea, sore throat, trouble swallowing and voice change. Eyes: Negative for visual disturbance. Respiratory: Negative for cough, shortness of breath and wheezing. Cardiovascular: Negative for chest pain, palpitations and leg swelling. Gastrointestinal: Negative for abdominal pain, blood in stool, constipation, diarrhea, nausea and vomiting. Genitourinary: Negative for difficulty urinating, dysuria, enuresis, frequency and hematuria. Musculoskeletal: Negative for arthralgias, joint swelling and myalgias. Skin: Negative for color change, rash and wound. Neurological: Positive for weakness. Negative for dizziness, seizures, syncope, speech difficulty, numbness and headaches. Hematological: Negative for adenopathy. Does not bruise/bleed easily. Psychiatric/Behavioral: Negative for dysphoric mood and sleep disturbance. The patient is not nervous/anxious. All other systems reviewed and are negative. OBJECTIVE BP 120/84 Pulse 108 Temp 36.3 ??C (97.3 ??F) (Oral) Resp 20 Ht 177.8 cm (5' 10 ) Wt 84.8 kg (186 lb 15.2 oz) SpO2 (!) 84% BMI 26.82 kg/m?? Temp: [36.3 ??C (97.3 ??F)-37 ??C (98.6 ??F)] 36.3 ??C (97.3 ??F) Pulse: [91-137] 108 Resp: [15-31] 20 BP: (98-130)/(48-84) 120/84 Arterial Line BP: (132-141)/(55-60) 136/59 FiO2 (%): [28 %-35 %] 28 % SpO2: [76 %-100 %] 84 % O2 Device: Nasal cannula O2 Flow Rate (L/min): [1 L/min-3 L/min] 2 L/min Intake/Output Summary (Last 24 hours) at 01/16/2025 1108 Last data filed at 01/16/2025 0612 Gross per 24 hour Intake 3703.61 ml Output 1365 ml Net 2338.61 ml Physical Exam Vitals and nursing note reviewed. Constitutional: General: He is not in acute distress. Appearance: Normal appearance. He is well-developed. HENT: Head: Normocephalic and atraumatic. Right Ear: External ear normal. Left Ear: External ear normal. Nose: Nose normal. Right Sinus: No maxillary sinus tenderness or frontal sinus tenderness. Left Sinus: No maxillary sinus tenderness or frontal sinus tenderness. Mouth/Throat: Lips: [place]. Mouth: Mucous membranes are moist. Pharynx: Oropharynx is clear. Eyes: General: No scleral icterus. Extraocular Movements: Extraocular movements intact. Pupils: Pupils are equal, round, and reactive to light. Neck: Vascular: No carotid bruit or JVD. Cardiovascular: Rate and Rhythm: Normal rate and regular rhythm. Pulses: Radial pulses are 2+ on the right side and 2+ on the left side. Heart sounds: Normal heart sounds, S1 normal and S2 normal. No murmur heard. No friction rub. No gallop. Pulmonary: Effort: Pulmonary effort is normal. Breath sounds: Normal breath sounds. No decreased air movement. No decreased breath sounds, wheezing, rhonchi or rales. Abdominal: General: Bowel sounds are normal. Palpations: Abdomen is soft. Tenderness: There is no abdominal tenderness. Comments: Colostomy in place Musculoskeletal: Cervical back: Full passive range of motion without pain. Right lower leg: No edema. Left lower leg: No edema. Skin: General: Skin is warm and dry. Capillary Refill: Capillary refill takes less than 2 seconds. Findings: No erythema, rash or wound. Medications Scheduled: acetaminophen, 1,000 mg, intravenous, Q6H RAYSA cefTRIAXone (ROCEPHIN) IV, 1,000 mg, intravenous, Q24H chlorhexidine, 15 mL, mouth/throat, BID famotidine, 20 mg, intravenous, Q24H metroNIDAZOLE, 500 mg, intravenous, Q12H [COMPLETED] Consult PICC nurse - PICC, , , Once AND sodium chloride, 10 mL, intravenous, Q12H AND sodium chloride, 10 mL, intravenous, PRN AND sodium chloride, 20 mL, intravenous, PRN Infusions: diltiazem, 2.5-20 mg/hr, Last Rate: 5 mg/hr (01/16/25 0857) sodium chloride 0.9 %, 100 mL/hr, Last Rate: 100 mL/hr (01/16/25206) sodium chloride 0.9 %, 3 mL/hr, Last Rate: 3 mL/hr (01/16/25206) As Needed: acetaminophen alum-mag hydroxide-simeth HYDROmorphone HYDROmorphone levalbuterol magnesium sulfate magnesium sulfate metoprolol (LOPRESSOR) IV ondansetron potassium chloride OR potassium chloride OR potassium chloride IV (Adult) sennosides-docusate sodium [COMPLETED] Consult PICC nurse - PICC AND sodium chloride AND sodium chloride AND sodium chloride Allergies: Patient has no known allergies. Code Status: Full Code Labs Recent Results (from the past 24 hours) Comprehensive metabolic panel Collection Time: 01/16/25 4:28 AM Result Value Ref Range SODIUM 140 134 - 146 mmol/L POTASSIUM 4.6 3.5 - 5.0 mmol/L CHLORIDE 105 98 - 109 mmol/L CARBON DIOXIDE 26 22 - 32 mmol/L ANION GAP 9 5 - 15 mmol/L BLOOD UREA NITROGEN 47 (H) 5 - 27 mg/dL CREATININE 1.30 (H) 0.70 - 1.20 mg/dL GLUCOSE 118 (H) 65 - 99 mg/dL CALCIUM 8.7 8.5 - 10.5 mg/dL TOTAL PROTEIN 5.5 (L) 6.0 - 8.0 g/dL ALBUMIN 2.4 (L) 3.2 - 5.3 g/dL ALKALINE PHOSPHATASE 482 (H) 39 - 130 U/L AST 28 <=41 U/L ALT 35 <=40 U/L BILIRUBIN,TOTAL 0.5 0.3 - 1.2 mg/dL EGFR Non-Race Dependent 58 (L) >=60 ml/min/1.73sq.m Magnesium Collection Time: 01/16/25 4:28 AM Result Value Ref Range MAGNESIUM 2.2 1.8 - 2.6 mg/dL CBC auto differential Collection Time: 01/16/25 4:28 AM Result Value Ref Range WBC 16.6 (H) 4 - 11 x10E9/L RBC Count 3.38 (L) 4.1 - 5.7 X10E12/L Hemoglobin 10.5 (L) 13 - 17 g/dL Hematocrit 31.8 (L) 39 - 50 % MCV 94 80 - 100 fL MCH 31.0 27 - 34 pg MCHC 32.9 32 - 36 g/dL RDW 14.3 11.5 - 15 % Platelet Count 301 150 - 450 X10E9/L MPV 8.6 7 - 12 fL Neutrophils % 94.7 % Lymphocytes % 1.0 % Monocytes % 4.1 % Eosinophils % 0.0 % Basophils % 0.2 % Neutrophils Absolute (A) 15.7 (H) 1.5 - 6.6 10*3/uL Lymphocytes Absolute 0.2 (L) 1.0 - 3.5 10*3/uL Monocytes Absolute 0.7 0.0 - 0.9 10*3/uL Eosinophils Absolute 0.0 0.0 - 0.4 10*3/uL Basophils Absolute 0.0 0.0 - 0.2 10*3/uL Differential Type AUTOMATED DIFFERENTIAL CK Total Collection Time: 01/16/25 4:28 AM Result Value Ref Range CPK 84 24 - 195 U/L Myoglobin, serum Collection Time: 01/16/25 4:28 AM Result Value Ref Range SERUM MYOGLOBIN 202.9 (H) 17.4 - 105.7 ng/mL Radiology X-ray chest 1 view Result Date: 01/16/2025 Single view chest History: SOB. Chest pain. Comparison: 01/15/2025 Findings: Single portable view ofthe chest. Interval extubation. Right-sided PICC line in unchanged position. Cardiac silhouette is stable. New small left-sided pleural effusion with bibasilar atelectasis and mild interstitial edema. Impression: 1. New small left-sided pleural effusion with bibasilar atelectasis. 2. Interval extubation. Finalized by Suhas Arellano MD on 01/16/2025 10:20 AM HOSPITAL PROBLEM LIST Principal Problem: Acute respiratory failure with hypoxia (CMS-HCC) Active Problems: Paroxysmal atrial fibrillation (CMS-HCC) Cardiomyopathy, nonischemic (CMS-HCC) Atrial fibrillation with rapid ventricular response ([facility]) A-fib ([facility]) ELLY (acute kidney injury) Scrotal swelling Colostomy present ([facility]) Fall Traumatic rhabdomyolysis History of CVA (cerebrovascular accident) Hypotension Septic shock ([facility]) H/O unilateral orchiectomy H/O left inguinal hernia repair S/P partial resection of colon ASSESSMENT & PLAN Acute respiratory failure with hypoxia Hypotension Patient remains intubated postop Transferred to [facility] from [place] Pulmonology consulted Extubated 01/15 Remains on 2 L NC Off levophed Continue normal saline IV fluids Scrotal swelling Incarcerated hernia Colostomy creation General surgery consulted OR at [place] 01/[address] James Lanier/Lydia for intraabdominal coverage Acute kidney injury Traumatic rhabdomyolysis Trend CK/Myoglobin daily Continue NS @ 100 mL/hr Traumatic blackwell insertion Urology consulted Dr. Stevenson with Urology was spoke to at [place] Requested no Blackwell insertion attempts until Urology can see patient Blackwell placed with urology 01/14 with urology Paroxysmal atrial fibrillation Was on Cardizem drip at [place] for Afib RVR Rate remains controlled at this time On Eliquis and metoprolol at home Anticoagulation held at this time postop - resume once tolerating oral intake DC planning: ok for transfer out of ICU, remains stable. Medically Ready for Discharge: Anticipated in 2-4 Days PAT Ybarra 01/16/2025 11:08 AM [facility] 7AM-7PM & 7PM-7AM: EpicChat or page through [employer]. PAT Ybarra 01/16/25 1112 Physician Attestation I, Javad Horvath MD, personally performed a face to face [...] I agree with the plan as noted. * Laura Cobian MD - 01/16/2025 8:12 AM EDT Images from the original note were not included. Daily Progress Note ICU Patient's name: Paul Guerrero Patient's Date of : 1950 Date of Admission: 01/14/2025 3:03 PM Length of stay during current admission: 2 Primary Care Physician: NO PCP, NO PCP Code Status: Full Code POD#2 Laparotomy, LIH repair, Left orchiectomy, omentectomy, and Tracy's procedure Subjective: Overnight Events: Pt awake, + thirsty. Pain controlled. Cardizem gtt restarted for rate control. Awake & following commands: [] No [x] Yes Current Ventilation Status: [] Ventilator [] BIPAP [x] Nasal Cannula 3L [] Room Air Sedation: [x] No Sedation [] Propofol gtt [] Versed gtt [] Ativan gtt [] Fentanyl gtt Diarrhea: [x] No [] Yes (C. Difficile status: [] Positive [] Negative [] Pending) Vasopressors: [x] No [] Yes If yes - [] Levophed [] Dopamine [] Vasopressin [] Dobutamine [] Phenylephrine [] Epinephrine Central lines: [x] No [] Yes (Date of Insertion: 01/14/25) Triple lumen PICC If yes - [] Right IJ [] Left IJ [] Right Femoral [] Left Femoral [] Right Subclavian [] Left Subclavian Blackwell Catheter: [] No [x] Yes (Date of Insertion: 01/14/25) Urine output: [x] Good [] Low [] Anuric Objective: Vitals: 01/16/25 0500 BP: 119/69 Pulse: 93 Resp: 25 Temp: SpO2: 96% Temp: [36.4 ??C (97.5 ??F)-37.7 ??C (99.9 ??F)] 37 ??C (98.6 ??F) Pulse: [91-137] 93 Resp: [15-31] 25 BP: (98-130)/(48-79) 119/69 Arterial Line BP: (118-141)/(51-60) 136/59 FiO2 (%): [32 %-35 %] 32 % SpO2: [89 %-100 %] 96 % O2 Device: Nasal cannula O2 Flow Rate (L/min): [1 L/min-3 L/min] 3 L/min No Known Allergies Intake/Output last 3 shifts: I/O last 3 completed shifts: In: 3926.8 [I.V.:3385; IV Piggyback:541.8] Out: 2345 [Urine:2115; Drains:230] Intake/Output this shift: No intake/output data recorded. Dietary Orders (From admission, onward) Start Ordered 01/14/25 152 Adult diet NPO Diet effective now Question: Diet Type: Answer: NPO 01/14/25 1523 Physical Exam General Appearance. Awake, alert. Appropriate conversation. Weak cough Pulmonary: Unlabored breathing, fair air entry, CTA diminished Cardiac: Irregular rate and rhythm. Tachy, Nl S1 and S2 Abdomen: ND, BS +, compressible, Midline and left inguinal incisions well approximated. LLQ RAAD serous drainage . Colostomy pink and healthy,edematous, no stool in appliance. Extremity: No edema bilateral lower extremities, warm and well perfused, bilat knee abrasions Genitalia. Scrotal edema /induration improving slowly Skin: Dry. No rashes. Eyes: Non-icteric Incisions: Clean, dry, and intact. Lines, Drains, Tubes: RAAD, PICC, PIV x 2 Laboratory Data: Lab Results Component Value Date WBC 16.6 (H) 01/16/2025 HGB 10.5 (L) 01/16/2025 HCT 31.8 (L) 01/16/2025 MCV 94 01/16/2025 PLT 301 01/16/2025 Lab Results Component Value Date GLU 118 (H) 01/16/2025 CALCIUM 8.7 01/16/2025 K 4.6 01/16/2025 CO2 26 01/16/2025 CL 105 01/16/2025 BUN 47 (H) 01/16/2025 CREATININE 1.30 (H) 01/16/2025 No results found for: AMYLASE No results found for: LIPASE Lab Results Component Value Date ALT 35 01/16/2025 AST 28 01/16/2025 ALKPHOS 482 (H) 01/16/2025 Lab Results Component Value Date INR 2.1 (H) 01/12/2025 INR 1.1 07/18/2016 INR 1.2 06/01/2016 PROTIME 24.7 (H) 01/12/2025 PROTIME 12.7 (H) 07/18/2016 PROTIME 13.4 (H) 06/01/2016 acetaminophen, 1,000 mg, intravenous, Q6H RAYSA cefTRIAXone (ROCEPHIN) IV, 1,000 mg, intravenous, Q24H chlorhexidine, 15 mL, mouth/throat, BID famotidine, 20 mg, intravenous, Q24H metroNIDAZOLE, 500 mg, intravenous, Q12H [COMPLETED] Consult PICC nurse - PICC, , , Once AND sodium chloride, 10 mL, intravenous, Q12H AND sodium chloride, 10 mL, intravenous, PRN AND sodium chloride, 20 mL, intravenous, PRN acetaminophen alum-mag hydroxide-simeth HYDROmorphone HYDROmorphone magnesium sulfate magnesium sulfate metoprolol (LOPRESSOR) IV ondansetron potassium chloride OR potassium chloride OR potassium chloride IV (Adult) sennosides-docusate sodium [COMPLETED] Consult PICC nurse - PICC AND sodium chloride AND sodium chloride AND sodium chloride Radiology: No results found. Principal Problem: Acute respiratory failure with hypoxia (CMS-HCC) Active Problems: Paroxysmal atrial fibrillation (CMS-HCC) Cardiomyopathy, nonischemic (CMS-HCC) Atrial fibrillation with rapid ventricular response (CMS-HCC) A-fib (CMS-HCC) ELLY (acute kidney injury) Scrotal swelling Colostomy present (CMS-HCC) Fall Traumatic rhabdomyolysis History of CVA (cerebrovascular accident) Hypotension Septic shock (CMS-HCC) H/O unilateral orchiectomy H/O left inguinal hernia repair S/P partial resection of colon Assessment and Plan: Incarcerated LIH with contained sigmoid perforation. S/p Laparotomy , LIH repair, Omentectomy and Orchiectomy. Tracy's procedure - IV abx of Ceftriaxone and Flagyl - RAAD out serous today - Await return of GI fx -Allow ice chips and hard candy 2. Traumatic blackwell attempt -Urology place 18F coude catheter -good urine outpt, non bloody 3. Acute respiratory failure with hypotension -Off pressor support -Resp status stable on NC -I/S, encourage cough -OOB to the chair today 4 Afib with RVR -Rate controlled on Cardizem gtt -Surgically cleared for anticoagulation Prophylxis EPC Pepcid Plan discussed with Dr. Cobian - JOANA SANCHEZ 01/16/25 8:13 AM JOANA Sanchez 01/16/25 1252 I, LAURA COBIAN MD, personally have seen and evaluated the patient and have also reviewed the note above, including the history, exam, and MDM. I have performed the [id number] diagnostic evaluation on this patient. My findings are as follows: patient is sitting comfortably in bedside chair. Breathing is unlabored but he is on 6L supplemental O2. Wet cough. No rhonchi with auscultation. Heart rate and rhythm remain irregular on cardizem gtt. Abdomen is soft, non-distended. Absent bowel sounds. Incisions intact and dry. RAAD is serous. Ostomy in place but no output or gas. Left hemiscrotum with substantially improved induration and tenderness. I have reviewed the laboratory findings as noted above. ELLY mildly improved. I agree with the assessment and plan as written. Increase activity. Continue NPO and bowel rest. Awaiting return of bowel function. Reorder IV acetaminophen and continue prn IV dilaudid. On rocephin and flagyl IV. Ok anticoagulation. * Laura Cobian MD - 01/15/2025 12:20 PM EDT Images from the original note were not included. Daily Progress Note ICU Patient's name: Paul Guerrero Patient's Date of : 1950 Date of Admission: 01/14/2025 3:03 PM Length of stay during current admission: 1 Primary Care Physician: NO PCP, NO PCP Code Status: Full Code POD#1 Laparotomy, LIH repair, Left orchiectomy, omentectomy, and Tracy's procedure Subjective: Overnight Events: Pt remains intubated. Off pressor support. Weaning sedation and vent settings to extubate. Awake & following commands: [] No [x] Yes Current Ventilation Status: [x] Ventilator [] BIPAP [] Nasal Cannula [] Room Air Sedation: [] No Sedation [x] Propofol gtt [] Versed gtt [] Ativan gtt [] Fentanyl gtt Diarrhea: [x] No [] Yes (C. Difficile status: [] Positive [] Negative [] Pending) Vasopressors: [x] No [] Yes If yes - [] Levophed [] Dopamine [] Vasopressin [] Dobutamine [] Phenylephrine [] Epinephrine Central lines: [x] No [] Yes (Date of Insertion: 01/14/25) Triple lumen PICC If yes - [] Right IJ [] Left IJ [] Right Femoral [] Left Femoral [] Right Subclavian [] Left Subclavian Blackwell Catheter: [] No [x] Yes (Date of Insertion: 01/14/25) Urine output: [x] Good [] Low [] Anuric Objective: Vitals: 01/15/25 1138 BP: 116/79 Pulse: (!) 137 Resp: 25 Temp: SpO2: 98% Temp: [36.1 ??C (97 ??F)-37.7 ??C (99.9 ??F)] 37.7 ??C (99.9 ??F) Pulse: [80-137] 137 Resp: [14-28] 25 BP: (90-130)/(58-81) 116/79 Arterial Line BP: (93-141)/(40-64) 122/51 FiO2 (%): [32 %-40 %] 32 % SpO2: [91 %-100 %] 98 % O2 Device: Nasal cannula O2 Flow Rate (L/min): [0 L/min-3 L/min] 3 L/min No Known Allergies Intake/Output last 3 shifts: I/O last 3 completed shifts: In: 157.7 [I.V.:113.4; IV Piggyback:44.3] Out: 1115 [Urine:950; Drains:165] Intake/Output this shift: I/O this shift: In: 223.2 [I.V.:174.2; IV Piggyback:49] Out: 300 [Urine:260; Drains:40] Dietary Orders (From admission, onward) Start Ordered 01/14/25 1523 Adult diet NPO Diet effective now Question: Diet Type: Answer: NPO 01/14/25 1523 Physical Exam General Appearance: Intubated and sedated. Opens eyes and following some commands Pulmonary: Good air entry, CTA bilat Cardiac: Irregular rate and rhythm. Tachy, Nl S1 and S2 Abdomen: ND, BS hypoactive, compressible, Midline and left inguinal incisions well approximated. LLQ RAAD bloody drainage. Colostomy pink and healthy, no stool in appliance. Extremity: No edema bilateral lower extremities, warm and well perfused, bilat knee abrasions Skin: Dry. No rashes. Eyes: Non-icteric Incisions: Clean, dry, and intact. Lines, Drains, Tubes: OG, RAAD, PICC, PIV x 2 Laboratory Data: Lab Results Component Value Date WBC 14.4 (H) 01/15/2025 HGB 10.3 (L) 01/15/2025 HCT 30.7 (L) 01/15/2025 MCV 93 01/15/2025 PLT 246 01/15/2025 Lab Results Component Value Date GLU 113 (H) 01/15/2025 CALCIUM 8.2 (L) 01/15/2025 K 4.2 01/15/2025 CO2 26 01/15/2025 CL 102 01/15/2025 BUN 40 (H) 01/15/2025 CREATININE 1.35 (H) 01/15/2025 No results found for: AMYLASE No results found for: LIPASE Lab Results Component Value Date ALT 35 01/15/2025 AST 34 01/15/2025 ALKPHOS 60 01/15/2025 Lab Results Component Value Date INR 2.1 (H) 01/12/2025 INR 1.1 07/18/2016 INR 1.2 06/01/2016 PROTIME 24.7 (H) 01/12/2025 PROTIME 12.7 (H) 07/18/2016 PROTIME 13.4 (H) 06/01/2016 cefTRIAXone (ROCEPHIN) IV, 1,000 mg, intravenous, Q24H chlorhexidine, 15 mL, mouth/throat, BID famotidine, 20 mg, intravenous, Q24H metroNIDAZOLE, 500 mg, intravenous, Q12H [COMPLETED] Consult PICC nurse - PICC, , , Once AND sodium chloride, 10 mL, intravenous, Q12H AND sodium chloride, 10 mL, intravenous, PRN AND sodium chloride, 20 mL, intravenous, PRN acetaminophen alum-mag hydroxide-simeth magnesium sulfate magnesium sulfate metoprolol (LOPRESSOR) IV ondansetron potassium chloride OR potassium chloride OR potassium chloride IV (Adult) sennosides-docusate sodium [COMPLETED] Consult PICC nurse - PICC AND sodium chloride AND sodium chloride AND sodium chloride Radiology: X-ray chest 1 view Result Date: 01/15/2025 XR CHEST 1 VW Clinical Information: resp failure Comparison: 01/14/2025. IMPRESSION: * Unchanged lines and tubes. * Minimal basilar atelectasis, trace left effusion. * Cardiomegaly. Finalized by Jeb Luciano MD on 01/15/2025 7:50 AM X-ray chest 1 view Result Date: 01/14/2025 History: PICC line placement Technique: A portable single frontal view of the chest was obtained. Comparison: 01/14/2025 at 106. Findings: There is a PICC line approaching from the right with its tip this. Vena cava. An endotracheal tube is seen with its tip approximate 6.4 cm above the mellisa. An enteric tube is seen with its tip in the stomach however its side port is at the level of the gastroesophageal junction, retracted slightly since the previous examination. Advancement further the stomach is recommended. There is no evidence for active cardiovascular or pulmonary disease. Impression: * Right-sided PICC line has its tip in the superior vena cava * The enteric tube has retracted slightly since the previous examination and its side-port is now at the level the gastroesophageal junction * Endotracheal tube in place with its tip above the mellisa. Finalized by Reynaldo Decker MD on 01/14/2025 8:57 PM X-ray chest 1 view Result Date: 01/14/2025 XR CHEST 1 VW History: Postop. Check lines and tubes One view study. Comparison: 01/13/2025 Impression: * Gastric drainage tube has been placed. The side-port is near the EG junction. For more optimalpositioning please advance 5 cm. ET tube is visualized. The tip terminates just above the aortic knob. This is satisfactory in position. No other concerning change. No evidence of aspiration. No pneumothorax. No large effusion. Finalized by Marry Villareal MD on 01/14/2025 2:20 PM Principal Problem: Acute respiratory failure with hypoxia (CMS-HCC) Active Problems: Paroxysmal atrial fibrillation (CMS-HCC) Cardiomyopathy, nonischemic (CMS-HCC) Atrial fibrillation with rapid ventricular response (CMS-HCC) A-fib (CMS-HCC) ELLY (acute kidney injury) Scrotal swelling Colostomy present (CMS-HCC) Fall Traumatic rhabdomyolysis History of CVA (cerebrovascular accident) Hypotension Septic shock (CMS-HCC) H/O unilateral orchiectomy H/O left inguinal hernia repair S/P partial resection of colon Assessment and Plan: Incarcerated LIH with contained sigmoid perforation. S/p Laparotomy , LIH repair, Omentectomy and Orchiectomy. Tracy's procedure - IV abx of Ceftriaxone and Flagyl - NPO, OG to LIWS - Monitor RAAD drain outpt - Await return of GI fx 2. Traumatic blackwell attempt -Urology place 18F coude catheter -good urine outpt, non bloody 3. Acute respiratory failure with hypotension -Off pressor support -weaning vent and sedation -possible extubation this am. -Pulmonary following. 4. Afib with RVR -Lopressor for rate control -Hold AC for post op -Cardiology following Prophylaxis EPC Protonix Plan discussed with Dr. Cobian - JOANA SANCHEZ 01/15/25 12:21 PM ILAURA MD, personally have seen and evaluated the patient and have also reviewed the note above, including the history, exam, and MDM. I have performed the [id number] diagnostic evaluation on this patient. My findings are as follows: patient is awake and extubated. No acute distress.Abdomen is soft and non-distended. Colostomy in place without output. Incisions are intact but verytender. Left hemiscrotum remains very indurated and tender. RAAD is serosanguinous. OGT was removed. I have reviewed the laboratory findings and imaging reports as noted above. I agree with the assessment and plan as written. Await return of bowel function. High risk for ileus, so do not give him oral meds//food/liquids yet. Encourage activity. Start IV acetaminophen to reduce narcotic requirements. * Travis Agrawal MD - 01/15/2025 9:09 AM EDT Images from the original note were not included. Pulmonary Progress Note Patient - Paul Guerrero Age - 74 y.o. - 1950 Date of Admission - 01/14/2025 3:03 PM Consulting Service/Physician Consulting: Consulting Providers Provider Service Specialty Laura Cobian MD -- General Surgery Travis Agrawal MD Z Pulmonology Pulmonary Disease [facility] Physician Cardiology -- Cardiology Hanane Marie MD -- Urology Primary Care Physician: NO PCP, NO PCP REASON FOR VISIT: resp failure, hypotension REVIEW OF SYMPTOMS: On vent, sedated, arouseable Events since last visit : None Past Medical History: Past Medical History: Diagnosis [place] 01/14/2025 admission Acute renal failure (ARF) occured at time of GI bleed Atrial fibrillation [place] Bluish skin discoloration CHF [place]congestive heart failure) [place] 2012 initial EF 15 % // last ECHO 55 % Cholecystitis Contracture of finger joint Patient had an accident on a ladder causing deformity and this eventually developed into a contracture. Patient elected not to have surgery. 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 / [facility] / Dr Bruce/ CTA Occult blood in stools abn fit test Peptic ulceration GI bleed Pneumonia Respiratory failure [place] occured at time of GI bleed Stroke [place] 06/2016 rx with TPA , Past Surgical History: Procedure Laterality Date CARDIAC CATHETERIZATION COLONOSCOPY diverticulosis / lg ingunial hernia ESOPHAGOGASTRODUODENOSCOPY severe errosis gastritis and duodenitis TONSILLECTOMY Social History: Social History Socioeconomic History Marital status: Single [...] Resource Strain: Not on file Food Insecurity: Patient Unable To Answer (01/14/2025) Hunger Screening Food Insecurity - Worry: Patient unable to answer Food Insecurity - Inability: Patient unable to answer Transportation Needs: Patient Unable To Answer (01/14/2025) PRAPARE - Transportation Lack of Transportation (Medical): Patient unable to answer Lack of Transportation (Non-Medical): Patient unable to answer Physical Activity: Not on file Stress: Not on file Social Connections: Not on file Interpersonal Safety: Patient Unable To Answer (01/14/2025) Humiliation, Afraid, Rape, and Kick questionnaire Fear of Current or Ex-Partner: Patient unable to answer Emotionally Abused: Patient unable to answer Physically Abused: Patient unable to answer Sexually Abused: Patient unable to answer Housing Instability: Patient Unable To Answer (01/14/2025) Housing Instability Housing Instability: Patient unable to answer SUBJECTIVE VITALS height is 177.8 cm (5' 10 ) and weight is 84.8 kg (186 lb 15.2 oz). His axillary temperature is 37.1 ??C (98.7 ??F). His blood pressure is 117/72 and his pulse is 115. His respiration is 25 and oxygen saturation is 100%. Temperature Range: Temp (24hrs), Av.4 ??C (97.6 ??F), Min:36.1 ??C (97 ??F), Max:37.1 ??C (98.7??F) BP Range: Systolic (24hrs), Av , Min:90 , Max:117 Pulse Range: Pulse Av.3 Min: 80 Max: 204 Respiration Range: Resp Av.8 Min: 8 Max: 33 Current Pulse Ox: Temp: 37.1 ??C (98.7 ??F) 24HR Pulse Ox Range: Temp Av.7 ??C (98.1 ??F) Min: 36.1 ??C (97 ??F) Max: 38.2 ??C (100.8 ??F) Oxygen Amount and Delivery: O2 Device: Endotracheal tube O2 Flow Rate (L/min): 0 L/min Wt Readings from Last 3 Encounters: 01/15/25 84.8 kg (186 lb 15.2 oz) 01/14/25 83.2 kg (183 lb 6.8 oz) 05/19/24 80.5 kg (177 lb 6.4 oz) I/O (24 Hours) Intake/Output Summary (Last 24 hours) at 01/15/2025 0909 Last data filed at 01/15/2025 0715 Gross per 24 hour Intake 157.69 ml Output 1265 ml Net -1107.31 ml Exam General Appearance - sedated, on vent, off levophed HEENT - normocephalic, atraumatic. Neck - Supple, trachea midline Lungs - Fair air entry bilaterally, breath sounds vesicular, no rhonchi, no rales or crackles Cardiovascular - Heart sounds are normal. Regular rate and rhythm. Abdomen - soft, nontender, nondistended, no masses or organomegaly Neurologic - There are no focal motor or sensory deficits Skin - no bruising or bleeding Extremities - no cyanosis, clubbing or edema Meds Current Facility-Administered Medications: acetaminophen (TYLENOL EXTRA STRENGTH) tablet 500 mg, 500 mg, oral, Q6H PRN, Brenda Millan, ELEVATOR RUNNER-DYLAN alum-mag hydroxide-simeth (MAALOX) 200-200-20 mg/5 mL suspension 30 mL, 30 mL, oral, PCHSP, Brenda Millan APRN-DYLAN cefTRIAXone (ROCEPHIN) 1,000 mg in sodium chloride 0.9 % 50 mL IVPB W/ADAPTER, 1,000 mg, intravenous, Q24H, Brenda Millan APRN-DYLAN, Stopped at 01/14/252108 chlorhexidine (PERIDEX) 0.12 % solution 15 mL, 15 mL, mouth/throat, BID, Travis Agrawal MD, 15 mL at01/15/25 0818 famotidine (PF) (PEPCID) injection 20 mg, 20 mg, intravenous, Q24H, PAT Ybarra, 20 mg at 01/14/25 1759 magnesium sulfate IVPB 2000 mg/50 mL in iso-osmotic water (40 mg/mL premix), 2,000 mg, intravenous,PRN, Brenda Millan APRN-DYLAN magnesium sulfate IVPB 4000 mg/100 mL in iso-osmotic water (40 mg/mL premix), 4,000 mg, intravenous, PRN, Brenda Millan APRN-DYLAN metoprolol (LOPRESSOR) injection 2.5 mg, 2.5 mg, intravenous, Q6H PRN, Alis Weems MD, 2.5 mgat 01/15/25 0547 metroNIDAZOLE (FLAGYL) IVPB 500 mg/100 mL in iso-osmotic sodium chloride (5 mg/mL premix), 500 mg, intravenous, Q12H, PAT Ybarra, Stopped at 01/15/25 0640 norepinephrine (LEVOPHED) infusion 8 mg/250 mL in dextrose 5% (0.032 mg/mL PMX), 0.01-0.2 mcg/kg/min, intravenous, Continuous, Travis Agrawal MD, Stopped at 01/14/252023 ondansetron (PF) (ZOFRAN) injection 4 mg, 4 mg, intravenous, Q4H PRN, Brenda Millan APRN-PRIVATE EQUITY ANALYST potassium chloride (K-TAB,KLOR-CON) CR tablet 30-50 mEq, 30-50 mEq, oral, PRN OR potassium chloride (KAYCIEL) 20 mEq/15 mL solution 30-50 mEq, 30-50 mEq, oral, PRN OR potassium chloride IVPB 10 mEq/100 mL in water (0.1 mEq/mL premix), 10 mEq, intravenous, PRN, Brenda Millan ELEVATOR RUNNER-PRIVATE EQUITY ANALYST propofoL (DIPRIVAN) infusion, 5-50 mcg/kg/min, intravenous, Continuous, Travis Agrawal MD, Last Rate: 7.5 mL/hr at 01/15/25 0613, 15 mcg/kg/min at 01/15/25 0613 sennosides-docusate sodium (SENOKOT-S) 8.6-50 mg 1 tablet, 1 tablet, oral, Q12H PRN, Brenda Millan APRN-DYLAN [COMPLETED] Consult PICC nurse - PICC, , , Once AND sodium chloride 0.9 % flush 10 mL, 10 mL, intravenous, Q12H, 10 mL at 01/15/25 0242 AND sodium chloride 0.9 % flush 10 mL, 10 mL, intravenous, PRN AND sodium chloride 0.9 % flush 20 mL, 20 mL, intravenous, PRN, Brenda Millan ELEVATOR RUNNER-PRIVATE EQUITY ANALYST sodium chloride 0.9 % infusion, 100 mL/hr, intravenous, Continuous, Brenda Millan APRN-PRIVATE EQUITY ANALYST, Stopped at 01/14/25 1802 sodium chloride 0.9 % infusion, 3 mL/hr, intra-arterial, Continuous, Travis Agrawal MD, Last Rate: 3mL/hr at 01/14/25 2310, 3 mL/hr at 01/14/25 2310 ALLERGIES: No Known Allergies Results from last 3 days Lab Units 01/15/25 0310 01/14/25 1252 01/14/25 0425 01/13/25 1332 01/13/25 0437 01/12/25 1711 BUN mg/dL 40* 42* 43* -- 40* 41* CREATININE mg/dL 1.35* 1.40* 1.80* -- 1.77* 1.97* POTASSIUM mmol/L 4.2 4.6 4.5 3.9 3.6 3.5 CO2 mmol/L 26 24 23 -- 24 25 CHLORIDE mmol/L 102 99 96* -- 99 95* MAGNESIUM mg/dL 2.2 -- 2.6 3.0* 1.6* 1.8 AST U/L 34 48* 88* -- 110* 105* ALT U/L 35 38 59* -- 46* 43* ALK PHOS U/L 60 57 84 -- 66 78 Results from last 3 days Lab Units 01/12/25 1711 INR 2.1* PROTIME sec 24.7* Results from last 3 days Lab Units 01/15/25 0310 01/14/25 1253 01/14/25 0425 01/13/25 0437 01/12/25 1711 WBC x10E9/L 14.4* 13.3* 32.8* 17.3* 22.7* HEMOGLOBIN g/dL 10.3* 10.5* 13.1 12.5* 14.6 HEMATOCRIT % 30.7* 31.1* 40.0 37.0* 43.9 PLATELETS X10E9/L 246 194 331 211 208 MCV fL 93 94 95 93 93 MCH pg 31.4 31.6 30.9 31.4 31.0 MCHC g/dL 33.8 33.7 32.7 33.9 33.3 RDW % 13.9 14.0 13.9 13.6 13.9 MONO ABS MAN 10*3/uL -- 0.4 1.0* -- 1.4* EOS ABS AUTO 10*3/uL 0.0 -- -- 0.0 -- Microbiology Results Procedure Component Value Units Date/Time Blood culture #1 [[id number]] Collected: 01/14/25 1328 Specimen: Blood, Venous Updated: 01/15/25 0701 CULTURE RESULTS NO GROWTH <24 HRS Blood culture #2 [[id number]] Collected: 01/14/25 1253 Specimen: Blood, Venous Updated: 01/15/25 0701 CULTURE RESULTS NO GROWTH <24 HRS Anaerobic culture [[id number]] Collected: 01/14/25 1012 Specimen: Aspirate from Abdomen Updated: 01/15/25 0027 CULTURE RESULTS Culture in progress Aspirate culture includes gram stain [[id number]] (Abnormal) Collected: 01/14/25 1012 Specimen: Aspirate from Abdomen Updated: 01/15/25 0908 CULTURE RESULTS Culture in progress GRAM STAIN >25 White Blood Cells/LPF 0 Squamous Epithelial Cells/LPF Many Gram negative bacilli Many Gram positive coccobacilli Blood culture [[id number]] Collected: 01/12/25 1829 Specimen: Blood, Venous Updated: 01/14/25 2301 CULTURE RESULTS NO GROWTH 2 DAYS Blood culture [[id number]] Collected: 01/12/25 1723 Specimen: Blood, Venous Updated: 01/14/25 2301 CULTURE RESULTS NO GROWTH 2 DAYS SARS/FLU A+B/RSV by NAAT/Molecular (M4RT Collection Tube) [[id number]] (Normal) Collected: 01/12/25 1712 Specimen: Swab from Nasopharynx Updated: 01/12/25 1812 FLU A PCR Negative FLU B PCR Negative RSV BY PCR Negative SARS COV 2 BY PCR Not Detected Narrative: The Xpert Xpress SARS-CoV-2/Flu/RSV Plus test is [...] operators who are performing tests using either [employer] or [employer] systems and islimited to laboratories that meet [...] with specimenrepeat. Fact Sheet for Healthcare Providers: https://www.fda.gov/media/777118/download Fact Sheet for Patients: https://www.fda.gov/media/587163/download Glucose Results from last 7 days Lab Units 01/15/25 0310 01/14/25 1252 01/14/25 0425 01/13/25 0437 01/12/25 1711 GLUCOSE mg/dL 113* 130* 115* 129* 125* I/O last 3 completed shifts: In: 157.7 [I.V.:113.4; IV Piggyback:44.3] Out: 1115 [Urine:950; Drains:165] Microbiology Results Procedure Component Value Units Date/Time Blood culture #1 [[id number]] Collected: 01/14/25 1328 Specimen: Blood, Venous Updated: 01/15/25 0701 CULTURE RESULTS NO GROWTH <24 HRS Blood culture #2 [[id number]] Collected: 01/14/25 1253 Specimen: Blood, Venous Updated: 01/15/25 0701 CULTURE RESULTS NO GROWTH <24 HRS Anaerobic culture [[id number]] Collected: 01/14/25 1012 Specimen: Aspirate from Abdomen Updated: 01/15/25 0027 CULTURE RESULTS Culture in progress Aspirate culture includes gram stain [[id number]] (Abnormal) Collected: 01/14/25 1012 Specimen: Aspirate from Abdomen Updated: 01/15/25 0908 CULTURE RESULTS Culture in progress GRAM STAIN >25 White Blood Cells/LPF 0 Squamous Epithelial Cells/LPF Many Gram negative bacilli Many Gram positive coccobacilli Blood culture [[id number]] Collected: 01/12/25 1829 Specimen: Blood, Venous Updated: 01/14/25 2301 CULTURE RESULTS NO GROWTH 2 DAYS Blood culture [[id number]] Collected: 01/12/25 1723 Specimen: Blood, Venous Updated: 01/14/25 2301 CULTURE RESULTS NO GROWTH 2 DAYS SARS/FLU A+B/RSV by NAAT/Molecular (M4RT Collection Tube) [[id number]] (Normal) Collected: 01/12/25 1712 Specimen: Swab from Nasopharynx Updated: 01/12/25 1812 FLU A PCR Negative FLU B PCR Negative RSV BY PCR Negative SARS COV 2 BY PCR Not Detected Narrative: The Xpert Xpress SARS-CoV-2/Flu/RSV Plus test is [...] operators who are performing tests using either [employer] or [employer] systems and islimited to laboratories that meet [...] with specimenrepeat. Fact Sheet for Healthcare Providers: https://www.fda.gov/media/811501/download Fact Sheet for Patients: https://www.fda.gov/media/043410/download Lines/Drains PICC Triple Lumen 01/14/25 Right (Active) Precautions Standard precautions;Hand hygiene;Gloves 01/15/25 0715 Lumen 1 Vigil 01/15/25 0715 Lumen 1 Status Blood return noted;Flushed;Saline locked;Alcohol sponge cap changed 01/15/25714 Lumen 1 Needleless Cap Cap changed 01/15/25 Lumen 1 Needleless Cap Change Due 01/19/25 01/15/25 Lumen 2 Red 01/15/25714 Lumen 2 Status Blood return noted;Flushed;Infusing;Connections checked/tightened 01/15/25714 Lumen 2 Needleless Cap Initial cap placed 01/14/252006 Lumen 2 Needleless Cap Change Due 01/18/25 01/14/252006 Lumen 3 White 01/15/25714 Lumen 3 Status Blood return noted;Flushed;Infusing;Connections checked/tightened 01/15/25714 Lumen 3 Needleless Cap Cap changed 01/15/25 Lumen 3 Needleless Cap Change Due 01/19/25 01/15/25 0000 Length bk (cm) 1 cm 01/14/252006 Extremity Circumference (cm) 27 cm 01/14/252006 Site Assessment Clean;Dry;Intact 01/15/25714 Dressing Type Occlusive;Transparent with CHG gel 01/15/25714 Dressing Status Clean;Dry;Intact 01/15/25714 Dressing Intervention Initial dressing 01/14/252006 Line Necessity Peripherally incompatible solution 01/15/25714 Line Necessity Reviewed With PAT Ybarra 01/14/252006 Patient Tolerance of Line Care Tolerated well 01/15/25 Dressing Change Due (Non-Gauze) 01/21/25 01/14/252006 Peripheral IV 01/14/25 Left Antecubital (Active) Line Status Blood return noted;Flushed;Saline locked;Alcohol sponge cap changed 01/15/25714 Site Assessment Clean;Dry;Intact 01/15/25714 Dressing Type Occlusive;Transparent 01/15/25714 Dressing Status Clean;Dry;Intact 01/15/25714 Dressing Intervention Initial dressing 01/15/25714 Dressing Change Due (Non-Gauze) 01/22/25 01/15/25714 Peripheral IV 01/14/25 Right Hand (Active) Line Status Blood return noted;Flushed;Infusing;Connections checked/tightened 01/15/25714 Site Assessment Clean;Dry;Intact 01/15/25714 Dressing Type Occlusive;Transparent 08/22/25 0715 Dressing Status Clean;Dry;Intact 01/15/25 0715 Dressing Intervention Initial dressing 01/15/25 0715 Dressing Change Due (Non-Gauze) 01/22/25 01/15/25 0715 Closed/Suction Drain 01/14/25 1 Anterior;Left Other (Comment) Bulb (Active) Drain/Tube Status To bulb suction 01/15/25 0715 Drain Securement Sutured 01/15/25 0715 Dressing Type Gauze 01/15/25 0715 Dressing Status Clean;Dry;Intact 01/15/25 0715 Drainage Appearance Bloody 01/15/25 0715 Output (mL) 40 mL 01/15/25 0715 NG/OG Tube 01/14/25 Orogastric Mouth (Active) Placement Verification Gastric content 01/15/25 0715 Status Suction-low intermittent 01/15/25 07 Site Assessment Clean;Dry;Intact 01/15/25 0715 Secured at (cm) 65 cm 01/15/25 0715 Securement Method Adhesive tape 01/15/25 0715 Dressing Status/Interventions Clean;Dry;Intact 01/15/25 0715 Drainage Appearance Bile 01/15/25 0715 Feeding? (Yes or No) No 01/15/25 0715 Colostomy 01/14/25 LLQ (Active) Stomal Appliance 1 piece 01/15/25 0715 Site Assessment Clean;Intact 01/15/25 0715 Peristomal Assessment Clean;Intact 01/15/25 0715 Stool Color Red 01/14/25 1515 Output (mL) 0 mL 01/15/25 0715 Urinary Catheter 01/14/25 Coude (Active) Catheter Status Patent 01/15/25 0715 Site Assessment Clean;Skin intact 01/15/25 0715 Collection Container Standard drainage bag/container 01/15/25 0715 Securement Method Right 01/15/25 0715 Tamper Evident Seal Intact No 01/15/25 0715 Indication for Continuation Strict I&O in critically ill patient 01/15/25 0715 Urine Color Yellow/straw 01/15/25 0715 Urine Appearance Clear 01/15/25 0715 Output (mL) 110 mL 01/15/25 0715 Bladder Instillation? No 01/15/25 0715 ETT 01/14/25 Cuffed Oral (Active) Secured at (cm) 23 cm 08/22/25 0818 Measured from Gums 01/15/25817 Secured Location Center 01/15/25817 Secured by Commercial tube campa 01/15/25817 Subglottic Port Yes 01/15/25817 Bite Block Yes 01/15/25817 Cuff Pressure (cm H2O) 30 cm H2O 01/15/25817 Site Condition Cool;Dry 01/15/25817 Subglottic Secretions Scant;Thin;Clear 01/15/25817 Subglottic Suction Frequency Intermittent suction 01/15/25817 Arterial Line 01/14/25 Right Radial (Active) Line Status Infusing;Pulsatile blood flow 01/15/25714 Line Interventions Leveled;Connections checked and tightened;Pressure bag maintained;Armboard 01/15/25714 Waveform Appropriate 01/15/25714 Site Assessment Clean;Dry;Intact 01/15/25714 Dressing Type Occlusive;Transparent with CHG gel 01/15/25714 Dressing Status Clean;Dry;Intact 01/15/25714 Dressing Intervention Initial dressing 01/15/25714 Color/Movement/Sensation Capillary refill less than 3 sec 01/15/25714 Patient Tolerance of Line Care Tolerated well 01/15/25714 Line Necessity Invasive hemodynamic monitoring 01/15/25714 Line Necessity Reviewed With RN 01/14/251524 Dressing Change Due (Non-Gauze) 01/21/25 01/14/25 1525 X-ray chest 1 view Result Date: 01/15/2025 XR CHEST 1 VW Clinical Information: resp failure Comparison: 01/14/2025. IMPRESSION: * Unchanged lines and tubes. * Minimal basilar atelectasis, trace left effusion. * Cardiomegaly. Finalized by Jeb Luciano MD on 01/15/2025 7:50 AM X-ray chest 1 view Result Date: 01/14/2025 History: PICC line placement Technique: A portable single frontal view of the chest was obtained. Comparison: 01/14/2025 at 106. Findings: There is a PICC line approaching from the right with its tip this. Vena cava. An endotracheal tube is seen with its tip approximate 6.4 cm above the mellisa. An enteric tube is seen with its tip in the stomach however its side port is at the level of the gastroesophageal junction, retracted slightly since the previous examination. Advancement further the stomach is recommended. There is no evidence for active cardiovascular or pulmonary disease. Impression: * Right-sided PICC line has its tip in the superior vena cava * The enteric tube has retracted slightly since the previous examination and its side-port is now at the level the gastroesophageal junction * Endotracheal tube in place with its tip above the mellisa. Finalized by Reynaldo Decker MD on 01/14/2025 8:57 PM X-ray chest 1 view Result Date: 01/14/2025 XR CHEST 1 VW History: Postop. Check lines and tubes One view study. Comparison: 01/13/2025 Impression: * Gastric drainage tube has been placed. The side-port is near the EG junction. For more optimalpositioning please advance 5 cm. ET tube is visualized. The tip terminates just above the aortic knob. This is satisfactory in position. No other concerning change. No evidence of aspiration. No pneumothorax. No large effusion. Finalized by Marry Villareal MD on 01/14/2025 2:20 PM Echo complete W/O contrast Result Date: 01/14/2025 Left Ventricle: Left ventricle appears normal in size. There is mild asymmetric increased wall thickness/hypertrophy. Systolic function is normal with an ejection fraction of 55-60%. The quantitativeEF by 2D Mitchell biplane is 61%. No obvious regional wall motion abnormalities. Unable to assess diastolic function due to atrial fibrillation/flutter. Right Ventricle: Right ventricular size appearsnormal. The right ventricular basal diameter is 36.0 mm. Normal systolic excursion velocity by TDI (>9.5 cm/s). Tricuspid Valve: There is moderate regurgitation. There is no evidence of tricuspid valve stenosis. There is moderate pulmonary hypertension. Mitral Valve: The leaflets are moderately t hickened. There is mild annular calcification. There is moderate regurgitation with a centrally directed jet. There is no evidence of mitral valve stenosis. Ultrasound retroperitoneal complete Result Date: 01/13/2025 US RETROPERITONEAL COMPLETE HISTORY: Acute kidney injury COMPARISON: 09/05/2012 TECHNIQUE: Grayscaleand color Doppler sonographic images of the urinary [...] 3:08 PM Ultrasound scrotum Result Date: 01/13/2025 CLINICAL INFORMATION: testicular swelling. COMPARISON: None. [...] to overlapping structures. * Scrotal wall edema andpossible herniated bowel into the scrotal sac, consider [...] CT brain without contrast Result Date: 01/12/2025 CT BRAIN WO CONT: 01/12/2025 6:02 PM Clinical: Head injury. On anticoagulation. EXAM: NONCONTRAST BRAIN CT Comparison: CT brain 04/16/2019 Procedure: Multi- detector CT performed through the brain without IV contrast. Automatic exposure control utilized. All CT scans at this facility use dose modulation, iterative reconstruction, and/or weight based dosing when appropriate to reduce radiation dose to as low as reasonably achievable. Findings: There is no intracranial hemorrhage, extra-axial fluidcollection, mass effect, midline shift, or hydrocephalus. Patent basal cisterns. MRI is more sensitive for evaluation of acute ischemia and subtle parenchymal abnormalities. IMPRESSION: * No acute int racranial abnormality by CT. Stable exam. Finalized by Pasha Young MD on 01/12/2025 6:08 PM Echo complete W/O contrast Result Date: 01/14/2025 Left Ventricle: Left ventricle appears normal in size. There is mild asymmetric increased wall thickness/hypertrophy. Systolic function is normal with an ejection fraction of 55-60%. The quantitativeEF by 2D Mitchell biplane is 61%. No obvious regional wall motion abnormalities. Unable to assess diastolic function due to atrial fibrillation/flutter. Right Ventricle: Right ventricular size appearsnormal. The right ventricular basal diameter is 36.0 mm. Normal systolic excursion velocity by TDI (>9.5 cm/s). Tricuspid Valve: There is moderate regurgitation. There is no evidence of tricuspid valve stenosis. There is moderate pulmonary hypertension. Mitral Valve: The leaflets are moderately t hickened. There is mild annular calcification. There is moderate regurgitation with a centrally directed jet. There is no evidence of mitral valve stenosis. ASSESSMENT / PLAN: Acute hypoxic resp failure On vent Tolerating SBT Possible extubation later today Hypotension - resolved Post op - 01/14/25 - repair of incarcerated inguinal hernia, colon resection, colostomy, orchiectomy A fib DW RN, RT * Javad Horvath MD - 01/15/2025 9:00 AM EDT Images from the original note were not included. [facility] [id number] [facility] [id number] Hospital Medicine Progress Note Patient: Paul Guerrero Date of : 1950 Room: PCP: NO PCP, NO PCP Admission date: 01/14/2025 3:03 PM Encounter date: 01/15/25 Hospital Day: 2 SUBJECTIVE Interval History: Status: improved. No overnight events. Patient likely to be extubated today. Off levophed. To be seen by general surgery. Review of Systems Unable to perform ROS: Intubated OBJECTIVE BP 116/79 Pulse (!) 137 Temp 37.7 ??C (99.9 ??F) (Oral) Resp 25 Ht 177.8 cm (5' 10 ) Wt 84.8 kg (186 lb 15.2 oz) SpO2 98% BMI 26.82 kg/m?? Temp: [36.1 ??C (97 ??F)-37.7 ??C (99.9 ??F)] 37.7 ??C (99.9 ??F) Pulse: [80-137] 137 Resp: [14-28] 25 BP: (90-130)/(58-81) 116/79 Arterial Line BP: (93-141)/(40-64) 122/51 FiO2 (%): [32 %-40 %] 32 % SpO2: [91 %-100 %] 98 % O2 Device: Nasal cannula O2 Flow Rate (L/min): [0 L/min-3 L/min] 3 L/min Intake/Output Summary (Last 24 hours) at 01/15/2025 1243 Last data filed at 01/15/2025 1045 Gross per 24 hour Intake 380.9 ml Output 1415 ml Net -1034.1 ml Physical Exam Vitals and nursing note reviewed. Constitutional: General: He is not in acute distress. Appearance: Normal appearance. He is well-developed. HENT: Head: Normocephalic and atraumatic. Right Ear: External ear normal. Left Ear: External ear normal. Nose: Nose normal. Right Sinus: No maxillary sinus tenderness or frontal sinus tenderness. Left Sinus: No maxillary sinus tenderness or frontal sinus tenderness. Mouth/Throat: Lips: [place]. Mouth: Mucous membranes are moist. Pharynx: Oropharynx is clear. Eyes: General: No scleral icterus. Extraocular Movements: Extraocular movements intact. Pupils: Pupils are equal, round, and reactive to light. Neck: Vascular: No carotid bruit or JVD. Cardiovascular: Rate and Rhythm: Normal rate and regular rhythm. Pulses: Radial pulses are 2+ on the right side and 2+ on the left side. Heart sounds: Normal heart sounds, S1 normal and S2 normal. No murmur heard. No friction rub. No gallop. Pulmonary: Effort: Pulmonary effort is normal. Breath sounds: Normal breath sounds. No decreased air movement. No decreased breath sounds, wheezing, rhonchi or rales. Abdominal: General: Bowel sounds are normal. Palpations: Abdomen is soft. Tenderness: There is no abdominal tenderness. Comments: Colostomy in place Musculoskeletal: Cervical back: Full passive range of motion without pain. Right lower leg: No edema. Left lower leg: No edema. Skin: General: Skin is warm and dry. Capillary Refill: Capillary refill takes less than 2 seconds. Findings: No erythema, rash or wound. Medications Scheduled: cefTRIAXone (ROCEPHIN) IV, 1,000 mg, intravenous, Q24H chlorhexidine, 15 mL, mouth/throat, BID famotidine, 20 mg, intravenous, Q24H metroNIDAZOLE, 500 mg, intravenous, Q12H [COMPLETED] Consult PICC nurse - PICC, , , Once AND sodium chloride, 10 mL, intravenous, Q12H AND sodium chloride, 10 mL, intravenous, PRN AND sodium chloride, 20 mL, intravenous, PRN Infusions: norepinephrine, 0.01-0.2 mcg/kg/min, Last Rate: Stopped (01/14/252023) propofoL, 5-50 mcg/kg/min, Last Rate: 15 mcg/kg/min (01/15/25930) sodium chloride 0.9 %, 100 mL/hr, Last Rate: Stopped (01/14/251801) sodium chloride 0.9 %, 3 mL/hr, Last Rate: 3 mL/hr (01/14/252309) As Needed: acetaminophen alum-mag hydroxide-simeth magnesium sulfate magnesium sulfate metoprolol (LOPRESSOR) IV ondansetron potassium chloride OR potassium chloride OR potassium chloride IV (Adult) sennosides-docusate sodium [COMPLETED] Consult PICC nurse - PICC AND sodium chloride AND sodium chloride AND sodium chloride Allergies: Patient has no known allergies. Code Status: Full Code Labs Recent Results (from the past 24 hours) Comprehensive metabolic panel Collection Time: 01/14/25 12:52 PM Result Value Ref Range SODIUM 133 (L) 134 - 146 mmol/L POTASSIUM 4.6 3.5 - 5.0 mmol/L CHLORIDE 99 98 - 109 mmol/L CARBON DIOXIDE 24 22 - 32 mmol/L ANION GAP 10 5 - 15 mmol/L BLOOD UREA NITROGEN 42 (H) 5 - 27 mg/dL CREATININE 1.40 (H) 0.70 - 1.20 mg/dL GLUCOSE 130 (H) 65 - 99 mg/dL CALCIUM 8.3 (L) 8.5 - 10.5 mg/dL TOTAL PROTEIN 5.4 (L) 6.0 - 8.0 g/dL ALBUMIN 2.9 (L) 3.2 - 5.3 g/dL ALKALINE PHOSPHATASE 57 39 - 130 U/L AST 48 (H) <=41 U/L ALT 38 <=40 U/L BILIRUBIN,TOTAL 0.9 0.3 - 1.2 mg/dL EGFR Non-Race Dependent 53 (L) >=60 ml/min/1.73sq.m Lactate w/ Reflex Collection Time: 01/14/25 12:52 PM Result Value Ref Range LACTATE W/REFLEX 2.0 0.4 - 2.0 mmol/L Narrative Result did not trigger repeat Lactate, re-order if needed. Blood culture #2 Collection Time: 01/14/25 12:53 PM Specimen: Blood, Venous Result Value Ref Range CULTURE RESULTS NO GROWTH <24 HRS CBC auto differential Collection Time: 01/14/25 12:53 PM Result Value Ref Range WBC 13.3 (H) 4 - 11 x10E9/L RBC Count 3.32 (L) 4.1 - 5.7 X10E12/L Hemoglobin 10.5 (L) 13 - 17 g/dL Hematocrit 31.1 (L) 39 - 50 % MCV 94 80 - 100 fL MCH 31.6 27 - 34 pg MCHC 33.7 32 - 36 g/dL RDW 14.0 11.5 - 15 % Platelet Count 194 150 - 450 X10E9/L MPV 10.0 7 - 12 fL Bands % 17 % Neutrophils % 77 % Lymphocytes % 1 % Monocytes % 3 % Atypical Lymphs % 2 % Neutrophils Absolute (M) 12.5 (H) 1.5 - 6.6 10*3/uL Lymphocytes Absolute 0.4 (L) 1.0 - 3.5 10*3/uL Monocytes Absolute 0.4 0.0 - 0.9 10*3/uL RBC Morphology Reviewed Differential Type MANUAL DIFFERENTIAL Blood Gas, Arterial Collection Time: 01/14/25 1:20 PM Result Value Ref Range Sample type ARTERIAL pH, Arterial 7.329 (L) 7.350 - 7.450 pCO2, Arterial 46.9 (H) 35.0 - 45.0 mmHg PO2, Arterial 99 80 - 100 mmHg Base, Deficit -1.0 (L) 0.0 - 2.0 mmol/L HCO3, Arterial 24.7 22.0 - 26.0 mmol/L %O2 Saturation, Arterial 97.0 >90.0 % Temo's test N/A SPO2 97 % Sample site A Line Insp. O2 conc. 40 % Source Of Oxygen Vent Blood culture #1 Collection Time: 01/14/25 1:28 PM Specimen: Blood, Venous Result Value Ref Range CULTURE RESULTS NO GROWTH <24 HRS Comprehensive metabolic panel Collection Time: 01/15/25 3:10 AM Result Value Ref Range SODIUM 134 134 - 146 mmol/L POTASSIUM 4.2 3.5 - 5.0 mmol/L CHLORIDE 102 98 - 109 mmol/L CARBON DIOXIDE 26 22 - 32 mmol/L ANION GAP 6 5 - 15 mmol/L BLOOD UREA NITROGEN 40 (H) 5 - 27 mg/dL CREATININE 1.35 (H) 0.70 - 1.20 mg/dL GLUCOSE 113 (H) 65 - 99 mg/dL CALCIUM 8.2 (L) 8.5 - 10.5 mg/dL TOTAL PROTEIN 5.3 (L) 6.0 - 8.0 g/dL ALBUMIN 2.7 (L) 3.2 - 5.3 g/dL ALKALINE PHOSPHATASE 60 39 - 130 U/L AST 34 <=41 U/L ALT 35 <=40 U/L BILIRUBIN,TOTAL 0.7 0.3 - 1.2 mg/dL EGFR Non-Race Dependent 55 (L) >=60 ml/min/1.73sq.m Magnesium Collection Time: 01/15/25 3:10 AM Result Value Ref Range MAGNESIUM 2.2 1.8 - 2.6 mg/dL CBC auto differential Collection Time: 01/15/25 3:10 AM Result Value Ref Range WBC 14.4 (H) 4 - 11 x10E9/L RBC Count 3.29 (L) 4.1 - 5.7 X10E12/L Hemoglobin 10.3 (L) 13 - 17 g/dL Hematocrit 30.7 (L) 39 - 50 % MCV 93 80 - 100 fL MCH 31.4 27 - 34 pg MCHC 33.8 32 - 36 g/dL RDW 13.9 11.5 - 15 % Platelet Count 246 150 - 450 X10E9/L MPV 9.0 7 - 12 fL Neutrophils % 95.3 % Lymphocytes % 0.7 % Monocytes % 3.1 % Eosinophils % 0.0 % Basophils % 0.9 % Neutrophils Absolute (A) 13.7 (H) 1.5 - 6.6 10*3/uL Lymphocytes Absolute 0.1 (L) 1.0 - 3.5 10*3/uL Monocytes Absolute 0.4 0.0 - 0.9 10*3/uL Eosinophils Absolute 0.0 0.0 - 0.4 10*3/uL Basophils Absolute 0.1 0.0 - 0.2 10*3/uL Differential Type AUTOMATED DIFFERENTIAL CK Total Collection Time: 01/15/25 3:10 AM Result Value Ref Range CPK 205 (H) 24 - 195 U/L Myoglobin, serum Collection Time: 01/15/25 3:10 AM Result Value Ref Range SERUM MYOGLOBIN 398.7 (H) 17.4 - 105.7 ng/mL Radiology X-ray chest 1 view Result Date: 01/15/2025 XR CHEST 1 VW Clinical Information: resp failure Comparison: 01/14/2025. IMPRESSION: * Unchanged lines and tubes. * Minimal basilar atelectasis, trace left effusion. * Cardiomegaly. Finalized by Jeb Luciano MD on 01/15/2025 7:50 AM X-ray chest 1 view Result Date: 01/14/2025 History: PICC line placement Technique: A portable single frontal view of the chest was obtained. Comparison: 01/14/2025 at 106. Findings: There is a PICC line approaching from the right with its tip this. Vena cava. An endotracheal tube is seen with its tip approximate 6.4 cm above the mellisa. An enteric tube is seen with its tip in the stomach however its side port is at the level of the gastroesophageal junction, retracted slightly since the previous examination. Advancement further the stomach is recommended. There is no evidence for active cardiovascular or pulmonary disease. Impression: * Right-sided PICC line has its tip in the superior vena cava * The enteric tube has retracted slightly since the previous examination and its side-port is now at the level the gastroesophageal junction * Endotracheal tube in place with its tip above the mellisa. Finalized by Reynaldo Decker MD on 01/14/2025 8:57 PM X-ray chest 1 view Result Date: 01/14/2025 XR CHEST 1 VW History: Postop. Check lines and tubes One view study. Comparison: 01/13/2025 Impression: * Gastric drainage tube has been placed. The side-port is near the EG junction. For more optimalpositioning please advance 5 cm. ET tube is visualized. The tip terminates just above the aortic knob. This is satisfactory in position. No other concerning change. No evidence of aspiration. No pneumothorax. No large effusion. Finalized by Marry Villareal MD on 01/14/2025 2:20 PM HOSPITAL PROBLEM LIST Principal Problem: Acute respiratory failure with hypoxia (CMS-HCC) Active Problems: Paroxysmal atrial fibrillation (CMS-HCC) Cardiomyopathy, nonischemic (CMS-HCC) Atrial fibrillation with rapid ventricular response (CMS-HCC) A-fib (CMS-HCC) ELLY (acute kidney injury) Scrotal swelling Colostomy present ([facility]) Fall Traumatic rhabdomyolysis History of CVA (cerebrovascular accident) Hypotension Septic shock ([facility]) H/O unilateral orchiectomy H/O left inguinal hernia repair S/P partial resection of colon ASSESSMENT & PLAN Acute respiratory failure with hypoxia Hypotension Patient remains intubated postop Transferred to [facility] from [place] Pulmonology consulted Extubated 01/15 Remains on 3 L NC Off levophed Continue normal saline IV fluids Scrotal swelling Incarcerated hernia Colostomy creation General surgery consulted OR at [place] 01/[address] James Lanier/Lydia for intraabdominal coverage Acute kidney injury Traumatic rhabdomyolysis Trend CK/Myoglobin daily Continue NS @ 100 mL/hr Traumatic blackwell insertion Urology consulted Dr. Stevenson with Urology was spoke to at [place] Requested no Blackwell insertion attempts until Urology can see patient Blackwell placed with urology 01/14 with urology Paroxysmal atrial fibrillation Was on Cardizem drip at [place] for Afib RVR Rate remains controlled at this time On Eliquis and metoprolol at home Anticoagulation held at this time postop DC planning: extubated today. Medically Ready for Discharge: Anticipated in 2-4 Days PAT Ybarra 01/15/2025 12:43 PM [facility] Internal Medicine 7AM-7PM & 7PM-7AM: EpicChat or page through On-Call Finder. PAT Ybarra 01/15/25 1247 Physician Attestation I, Javad Horvath MD, personally performed a face to face [...] I agree with the plan as noted. * Basia Walker RCP - 01/15/2025 6:31 AM EDT ABG RESULTS results not populating pH 7.31 PCO2 54.6 PO2 104 BE 0 HCO3 27.4 TCO2 29 sO2 97% documented in this encounter H&P Notes * Javad Horvath MD - 01/14/2025 4:45 PM EDT Images from the original note were not included. [facility] INTERNAL MEDICINE [facility] [id number] [facility] [id number] [facility] Medicine History & Physical Patient: Paul Guerrero Date of : 1950 Room: PCP: NO PCP, NO PCP Admission date: 01/14/2025 3:03 PM Encounter date: 01/14/25 Hospital Day: 1 SUBJECTIVE Paul Guerrero is a 74 y.o. male who presents from [facility] as he had to remain intubated post op. Patient initially presented to [place] ED following a fall. Pt noted he had recently been sick and feeling fatigued and weak for 2 days. When he got out of bed he said he had a hard time walking and fell. Stated he hurt his knees and his face. In ED on EKG noted to be in afib RVR. Cardiology was consulted and patient was started on Cardizem drip. Patient had scrotal swelling and General surgery was consulted. In his groin that has been present for years, over the last few days the hernia has grown significantly in size and his scrotum became swollen. patient to OR for Possible herniated bowelthrough scrotal sac. Patient to OR for open left inguinal hernia repair, patient ended up having hernia repair, orchiectomy and colostomy creation. Patient remained intubated postop and was transferred to [facility] for further management. Cardiology, pulmonology, Urology, and General surgery consulted. Patient remains on Levophed drip and is sedated on Diprivan. Allergies: Patient has no known allergies. Prior to Admission medications Medication Sig Start Date End Date Taking? Authorizing Provider apixaban (ELIQUIS) 5 mg tablet Take 1 tablet (5 mg total) by mouth in the morning and 1 tablet (5 mg total) before bedtime. 06/03/24 PAT Sparks metoprolol tartrate (LOPRESSOR) 50 mg tablet Take 1 tablet (50 mg total) by mouth in the morning and 1 tablet (50 mg total) before bedtime. 07/16/24 PAT Sparks Code Status: Full Code Past Medical History: Patient has a past medical history of [place]), Acute renal failure (ARF), Atrial fibrillation [place] Bluish skin discoloration, CHF (congestive heart failure) [place] ([place]), Cholecystitis, Contracture of finger joint, CVA (cerebral vascular accident) [place] Diverticulosis of colon, Dyspnea, Elevated LFTs, Gastritis and duodenitis, GI bleed, Hiatal hernia, Inguinal hernia, Mesenteric artery stenosis, Occult blood in stools, Peptic ulceration, Pneumonia, Respiratory failure [place] and Stroke ([facility]) (06/2016). Past Surgical History: Patient has a [...] does not use drugs. Review of Systems Unable to perform ROS: Intubated OBJECTIVE BP 106/67 Pulse 92 Temp 36.3 ??C (97.3 ??F) (Oral) Resp 14 Ht 177.8 cm (5' 10 ) SpO2 97% BMI 26.32 kg/m?? Temp: [36.1 ??C (97 ??F)-36.8 ??C (98.2 ??F)] 36.3 ??C (97.3 ??F) Pulse: [86-141] 92 Resp: [8-28] 14 BP: (99-116)/(50-67) 106/67 Arterial Line BP: (110)/(54) 110/54 FiO2 (%): [28 %-40 %] 40 % SpO2: [84 %-100 %] 97 % O2 Device: Endotracheal tube O2 Flow Rate (L/min): [0 L/min-3 L/min] 0 L/min Intake/Output Summary (Last 24 hours) at 01/14/2025 1648 Last data filed at 01/14/2025 1515 Gross per 24 hour Intake -- Output 85 ml Net -85 ml Physical Exam Vitals and nursing note reviewed. Constitutional: General: He is not in acute distress. Appearance: Normal appearance. He is well-developed. HENT: Head: Normocephalic and atraumatic. Right Ear: External ear normal. Left Ear: External ear normal. Nose: Nose normal. Right Sinus: No maxillary sinus tenderness or frontal sinus tenderness. Left Sinus: No maxillary sinus tenderness or frontal sinus tenderness. Mouth/Throat: Lips: [place]. Mouth: Mucous membranes are moist. Pharynx: Oropharynx is clear. Eyes: General: No scleral icterus. Extraocular Movements: Extraocular movements intact. Pupils: Pupils are equal, round, and reactive to light. Neck: Vascular: No carotid bruit or JVD. Cardiovascular: Rate and Rhythm: Normal rate and regular rhythm. Pulses: Radial pulses are 2+ on the right side and 2+ on the left side. Heart sounds: Normal heart sounds, S1 normal and S2 normal. No murmur heard. No friction rub. No gallop. Pulmonary: Effort: Pulmonary effort is normal. Breath sounds: Normal breath sounds. No decreased air movement. No decreased breath sounds, wheezing, rhonchi or rales. Abdominal: General: Bowel sounds are normal. Palpations: Abdomen is soft. Tenderness: There is no abdominal tenderness. Comments: Colostomy in place Musculoskeletal: Cervical back: Full passive range of motion without pain. Right lower leg: No edema. Left lower leg: No edema. Skin: General: Skin is warm and dry. Capillary Refill: Capillary refill takes less than 2 seconds. Findings: No erythema, rash or wound. Neurological: General: No focal deficit present. Mental Status: He is alert and oriented to person, place, and time. Psychiatric: Attention and Perception: Attention normal. Mood and Affect: Mood and affect normal. Behavior: Behavior normal. Behavior is cooperative. Medications Scheduled: chlorhexidine, 15 mL, mouth/throat, BID Consult PICC nurse - PICC, , , Once AND sodium chloride, 10 mL, intravenous, Q12H AND sodium chloride, 10 mL, intravenous, PRN AND sodium chloride, 20 mL, intravenous, PRN Infusions: norepinephrine, 0.01-0.2 mcg/kg/min, Last Rate: 0.04 mcg/kg/min (01/14/25 1603) propofoL, 5-50 mcg/kg/min, Last Rate: 35 mcg/kg/min (01/14/25 1535) sodium chloride 0.9 %, 100 mL/hr As Needed: acetaminophen alum-mag hydroxide-simeth magnesium sulfate magnesium sulfate ondansetron perflutren lipid microspheres (DEFINITY) dilution injection 1.43 mg/10 mL potassium chloride OR potassium chloride OR potassium chloride IV (Adult) sennosides-docusate sodium sodium chloride Consult PICC nurse - PICC AND sodium chloride AND sodium chloride AND sodium chloride Allergies: Patient has no known allergies. Labs Recent Results (from the past 24 hours) Lactate Collection Time: 01/13/25 5:02 PM Result [...] Sample site N/A Source Of Oxygen Vent Comprehensive metabolic panel Collection Time: 01/14/25 12:52 PM Result Value Ref Range SODIUM 133 (L) 134 - 146 mmol/L POTASSIUM 4.6 3.5 - 5.0 mmol/L CHLORIDE 99 98 - 109 mmol/L CARBON DIOXIDE 24 22 - 32 mmol/L ANION GAP 10 5 - 15 mmol/L BLOOD UREA NITROGEN 42 (H) 5 - 27 mg/dL CREATININE 1.40 (H) 0.70 - 1.20 mg/dL GLUCOSE 130 (H) 65 - 99 mg/dL CALCIUM 8.3 (L) 8.5 - 10.5 mg/dL TOTAL PROTEIN 5.4 (L) 6.0 - 8.0 g/dL ALBUMIN 2.9 (L) 3.2 - 5.3 g/dL ALKALINE PHOSPHATASE 57 39 - 130 U/L AST 48 (H) <=41 U/L ALT 38 <=40 U/L BILIRUBIN,TOTAL 0.9 0.3 - 1.2 mg/dL EGFR Non-Race Dependent 53 (L) >=60 ml/min/1.73sq.m Lactate w/ Reflex Collection Time: 01/14/25 12:52 PM Result Value Ref Range LACTATE W/REFLEX 2.0 0.4 - 2.0 mmol/L Narrative Result did not trigger repeat Lactate, re-order if needed. CBC auto differential Collection Time: 01/14/25 12:53 PM Result Value Ref Range WBC 13.3 (H) 4 - 11 x10E9/L RBC Count 3.32 (L) 4.1 - 5.7 X10E12/L Hemoglobin 10.5 (L) 13 - 17 g/dL Hematocrit 31.1 (L) 39 - 50 % MCV 94 80 - 100 fL MCH 31.6 27 - 34 pg MCHC 33.7 32 - 36 g/dL RDW 14.0 11.5 - 15 % Platelet Count 194 150 - 450 X10E9/L MPV 10.0 7 - 12 fL Bands % 17 % Neutrophils % 77 % Lymphocytes % 1 % Monocytes % 3 % Atypical Lymphs % 2 % Neutrophils Absolute (M) 12.5 (H) 1.5 - 6.6 10*3/uL Lymphocytes Absolute 0.4 (L) 1.0 - 3.5 10*3/uL Monocytes Absolute 0.4 0.0 - 0.9 10*3/uL RBC Morphology Reviewed Differential Type MANUAL DIFFERENTIAL Blood Gas, Arterial Collection Time: 01/14/25 1:20 PM Result Value Ref Range Sample type ARTERIAL pH, Arterial 7.329 (L) 7.350 - 7.450 pCO2, Arterial 46.9 (H) 35.0 - 45.0 mmHg PO2, Arterial 99 80 - 100 mmHg Base, Deficit -1.0 (L) 0.0 - 2.0 mmol/L HCO3, Arterial 24.7 22.0 - 26.0 mmol/L %O2 Saturation, Arterial 97.0 >90.0 % Temo's test N/A SPO2 97 % Sample site A Line Insp. O2 conc. 40 % Source Of Oxygen Vent Radiology X-ray chest 1 view Result Date: 01/14/2025 Narrative: XR CHEST 1 VW History: Postop. Check [...] Marry Villareal MD on 01/14/2025 2:20 PM Echo complete W/O contrast Result Date: 01/14/2025 [...] ultrasound of the kidneys and urinary bladder. [id number] Finalized by Russell Brantley MD on 01/13/2025 [...] Finalized by Jose Luis Asif MD on 1:48 AM X-ray chest 1 view Result Date: [...] 6:08 PM HOSPITAL PROBLEM LIST Principal Problem: Acute respiratory failure with hypoxia (CMS-HCC) Active Problems: Paroxysmal atrial fibrillation (CMS-HCC) Cardiomyopathy, nonischemic (CMS-HCC) Atrial fibrillation with rapid ventricular response (CMS-HCC) A-fib (CMS-HCC) ELLY (acute kidney injury) Scrotal swelling Colostomy present (CMS-HCC) Fall Traumatic rhabdomyolysis History of CVA (cerebrovascular accident) Hypotension ASSESSMENT & PLAN Acute respiratory failure with hypoxia Hypotension Patient remains intubated postop Transferred to [facility] from [place] Pulmonology consulted Sedated on Diprivan Remains on Levophed at this time Continue normal saline IV fluids Scrotal swelling Incarcerated hernia Colostomy creation General surgery consulted OR at [place] 01/[address] James Lanier/Lydia for intraabdominal coverage Acute kidney injury Traumatic rhabdomyolysis Trend CK/Myoglobin daily Continue NS @ 100 mL/hr Traumatic blackwell insertion Urology consulted Dr. Stevenson with Urology was spoke to at [place] Requested no Blackwell insertion attempts until Urology can see patient Paroxysmal atrial fibrillation Was on Cardizem drip at [place] for Afib RVR Rate remains controlled at this time On Eliquis and metoprolol at home Anticoagulation held at this time postop Sepsis suspected, no-not clinically evident at this time. Chart reviewed. Admission orders placed. Home medications NPO while intubated. DVT/VTE prophylaxis: SCD and no pharmacologic prophylaxis due to post op. GI prophylaxis: add famotidine. DC planning: remains intubated and sedated . Medically Ready for Discharge: Anticipated in 2-4 Days PAT Ybarra 01/14/2025 4:48 PM [facility] Medicine 7AM-7PM & 7PM-7AM: EpicChat or page through On-Call Finder. PAT Ybarra 01/14/25 [id number] Physician Attestation I, Javad Horvath MD, personally performed a face to face [...] plan as noted. documented in this encounter Procedure Notes * Jameel Yusuf RCP - 01/15/2025 12:06 PM EDT Extubation Time-Out Process Date of Time-Out Process: 01/15/2025 Time-Out Process Check List: Verified patient identification, Verified procedure, Verified site/side - marked, Verified correct patient position, and Special equipment/implants available Time-Out Comments: Reason Reason: No perceived need for further ventilatory support Technical Description Pre-extubation status: meets required criteria Pre-extubation assessment Gag reflex: Strong Cuff test: Able to breathe around deflated cuff Preparation:placed in sitting position , pharynx suctioned prior to cuff deflation, and placed on supplemental oxygen Evaluation Air movement: satisfactory Oxygenation: satisfactory Hemodynamics: hemodynamically stable throughout Outcome: placed on supplemental oxygen Miscellaneous Information Pt extubated at 1138 and placed on 3L nasal cannula. Procedure Information * Brett Rhoades RN - 01/14/2025 8:09 PM EDTSummary: PICC TLC Images from the original note were not included. PICC line placement note: Dynamic booky: Brett Rhoades RN, [facility] Prescribed IV therapy: Rocephin, Flagyl, Levophed, Diprivan, NS @ 100 mL/hr History / Labs / Allergies were reviewed prior to insertion Any contraindications/considerations prior to placement: blood cultures pending without results Approvals required before insertion: none Bedside time out performed with nurse Payal Barry RN utilizing two identifiers Consent completed by [place] Nichole, , and is located in the chart. PICC: Product type: 5 fr triple lumen Bard PowerPICC inserted into the right basilic vein Ref: [id number] Lot: [id number] Exp: 07-24-2025 Trimmed at 42 cm with 1 cm external Number of attempts: 1 CVR: 39% Dressed per protocol with statlock and CHG tegaderm Lidocaine used during procedure: intradermal administration conc 1% approximately 1mL Lot #: [id number] Exp: 07-24-2026 Following successful completion of procedure, all PICC kit components including sharps were accounted for, intact, and disposed of properly. Payal Barry RN aware CXR is needed prior to PICC use. CXR ordered and awaiting report. RN aware new IV tubing is required. Per x-ray results, Right-sided PICC line has its tip in the superior vena cava. PICC line is released for use. documented in this encounter Consult Notes * Romel Mckeon APRN-DYLAN - 01/20/2025 11:45 AM EDTAssociated Order(s): CONSULT WOUND CARE SERVICES WOUND CARE CONSULT NOTE Date of Admission: 01/14/2025 3:03 PM Reason for Consult: new ostomy PCP: NO PCP, NO PCP Principle problem: fall History of Present Illness: Paul Guerrero is a 74 year old male who presents for evaluationof new colostomy. The ostomy has been present since patient underwent open primary incarcerated left inguinal hernia repair, Sigmoid colectomy with end-colostomy, left orchiectomy, omentectomy on 01/14/25. Patient currently wearing Coloplast 80232. Patient unsure if he is maintaining a seal. He believes the pouch was last changed this morning. He states he has not really been watching emptying because he is normally sleeping. He reports pain 0/10 at this. PMH: Past Medical History: Diagnosis Date [place]/2025 admission Acute renal failure (ARF) occured at time of GI bleed Atrial fibrillation ([facility] Bluish skin discoloration CHF (congestive heart failure) [place] 2012 initial EF 15 % // last ECHO 55 % Cholecystitis Contracture of finger joint Patient had an accident on a ladder causing deformity and this eventually developed into a contracture. Patient elected not to have surgery. 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 / [facility]ALE[facility] / Dr Bruce/ CTA Occult blood in stools abn fit test Peptic ulceration GI bleed Pneumonia Respiratory failure [place] occured at time of GI bleed Stroke [place] 06/2016 rx with TPA PSH: Past Surgical History: Procedure Laterality Date CARDIAC CATHETERIZATION COLONOSCOPY diverticulosis / lg ingunial hernia CREATION COLOSTOMY Left 01/14/2025 Performed by Delmar Ramirez MD at [facility] ESOPHAGOGASTRODUODENOSCOPY severe errosis gastritis and duodenitis ORCHIECTOMY Left 01/14/2025 Performed by Delmar Ramirez MD at [facility] REPAIR HERNIA INGUINAL Left 01/14/2025 Performed by Delmar Ramirez MD at [facility] TONSILLECTOMY Allergies: No Known Allergies Home Meds: Medications Prior to Admission Medication Sig Dispense Refill Last Dose/Taking apixaban (ELIQUIS) 5 mg tablet Take 1 tablet (5 mg total) by mouth in the morning and 1 tablet (5 mg total) before bedtime. (Patient taking differently: Take 1 tablet (5 mg total) by mouth in the morning and 1 tablet (5 mg total) before bedtime. Last dose was given at [facility] 01/13 0930 Prior to transfer.) 180 tablet 2 01/13/2025 at 9:30 AM metoprolol tartrate (LOPRESSOR) 50 mg tablet Take 1 tablet (50 mg total) by mouth in the morning and 1 tablet (50 mg total) before bedtime. 180 tablet 3 Taking Social History: Social History Socioeconomic History Marital status: Single [...] Resource Strain: Not on file Food Insecurity: Patient Unable To Answer (01/15/2025) Hunger Screening Food Insecurity - Worry: Patient unable to answer Food Insecurity - Inability: Patient unable to answer Transportation Needs: Patient Unable To Answer (01/14/2025) PRAPARE - Transportation Lack of Transportation (Medical): Patient unable to answer Lack of Transportation (Non-Medical): Patient unable to answer Physical Activity: Not on file Stress: Not on file Social Connections: Not on file Interpersonal Safety: Patient Unable To Answer (01/14/2025) Humiliation, Afraid, Rape, and Kick questionnaire Fear of Current or Ex-Partner: Patient unable to answer Emotionally Abused: Patient unable to answer Physically Abused: Patient unable to answer Sexually Abused: Patient unable to answer Housing Instability: Patient Unable To Answer (01/14/2025) Housing Instability Housing Instability: Patient unable to answer Family History: Family History Problem Relation Age of Onset No Known Problems Mother Heart attack Father 40 Heart disease Father Heart disease Sister Heart disease Sister Review of Systems Review of Systems Constitutional: Positive for fatigue. Negative for activity change, chills, diaphoresis and fever. Cardiovascular: Negative for chest pain. Gastrointestinal: Negative for abdominal pain, nausea and vomiting. Skin: Positive for wound. Negative for rash. Neurological: Negative for dizziness, syncope and light-headedness. Physical Exam Vital Signs: BP 102/51 Pulse (!) 34 Comment: notified nurse Temp 36.6 ??C (97.8 ??F) (Oral) Resp 18 Ht 177.8 cm (5' 10 ) Wt 84.8 kg (186 lb 15.2 oz) SpO2 (!) 88% Comment: notified nurse BMI 26.82 kg/m?? Physical Exam Vitals reviewed. Constitutional: General: He is not in acute distress. Appearance: He is not ill-appearing or diaphoretic. Interventions: Nasal cannula in place. HENT: Mouth/Throat: Mouth: Mucous membranes are moist. Cardiovascular: Rate and Rhythm: Normal rate. Pulmonary: Effort: Pulmonary effort is normal. No respiratory distress. Abdominal: General: There is no distension. Palpations: Abdomen is soft. Tenderness: There is no abdominal tenderness. There is no guarding. Skin: General: Skin is warm and dry. Capillary Refill: Capillary refill takes less than 2 seconds. Findings: No erythema or rash. Neurological: Mental Status: He is alert and oriented to person, place, and time. Psychiatric: Mood and Affect: Mood normal. Behavior: Behavior normal. Ostomy Assessment: Location: [facility] Type: colostomy Measurement: TBD mm Stoma: DEXTER Peristomal: DEXTER Abdomen: soft flat Output: brown watery Plan Supplies: Coloplast one piece flat drainable pouch with gas filter (#[id number]) Coloplast moldable ring (#[id number]) TBD Education: --Introduced self and role. Discussed what ET services would provide during hospital stay and beyond --Anatomy of the GI system and creation of stoma --pouch open/close/empty lesson demonstrated ( headlights, taillights, bumper, close the trunk ) --pouch should be emptied when no more than 1/3 to 1/2 full with stool or gas --reviewed that pouch change will typically be every 3-4 days (as a routine/goal). Importance beingon consistent wear time. Some people leave pouch in place for longer. Pouch should immediately be changed with any signs of leaking so as to prevent skin irritation. If patient is having issues/leaks understands to call Patient did well looking and following along with ostomy care. I gave him a clean pouch to practicewith and he was hands on. Asking good questions. Pouching: Gather supplies - cut pouch to measured size, washcloth/paper towel & water, barrier ring Remove old pouch and gently wash area with water only, let dry (If you have skin breakdown: Sprinkle stoma powder to irritated area, brush off excess, dab barrierwipes to form the barrier layer, let dry) Stretch barrier ring to size needed and apply to back of the pouch Pull abdominal skin flat with one hand and apply pouching system Look around entire wafer to make sure no leaks or cracks, should be smooth Hold hand in place for at least 2 minutes to warm pouch Medical Management: per primary Follow up: Will revisit for ostomy support and teaching. Patient verbalizes understanding. Referralplaced for wound clinic at discharge for follow up after discharge. Supplies at bedside. Thank you for allowing us to participate in the care of this patient. Please feel free to call us with any questions or concerns. Skylar STEWART, DANDY [phone] Contact Wound Care Service Contact via [employer] or [employer] group: Wound Care This note was created with the assistance of a speech-recognition program. Although the intention is to generate a document that accurately reflects the content of the visit, no guarantees can be provided that every mistake/misinterpretation has been identified and corrected by editing. PAT Long 01/20/25 1702 PAT Long 01/20/25 1703 * Karri Aguilera MD - 01/20/2025 9:52 AM EDTAssociated Order(s): IP CONSULT TO INFECTIOUS DISEASES Images from the original note were not included. [facility] - Initial Consult Note Paul Guerrero Admit date/time 01/14/2025 3:03 PM Today's Date and Time: 01/20/2025, 9:52 AM Impression: Incarcerated left inguinal hernia with contained Sigmoid perforation Devitalized omentum/left testicle Acute respiratory failure Leukocytosis Acute kidney injury Traumatic Blackwell insertion Traumatic rhabdomyolysis Recommendations January 14 Open primary incarcerated left inguinal hernia repair Sigmoid colectomy with end colostomy Left orchectomy Omentectomy Abdominal cultures positive for E coli, strep gordonii I, Bacteroides, Edith utilis Blood cultures remain negative Discontinue ceftriaxone Flagyl Start Zosyn micafungin Continue Zosyn until February 10 Continue micafungin until February 16 WBC platelets creatinine LFTs weekly while on antimicrobial Supportive care ID clinic in 2-3 weeks Reason for consultation: Positive culture Chief complaint Abdominal pain History of Present Illness: Paul Guerrero is a 74 y.o.-year-old male who was initially admitted on 01/14/2025. Due to fall He was having Weakness prior to admission. He reported scrotal swelling Diagnosed with incarcerated left inguinal hernia with contained perforated sigmoid colon January 14 Open primary incarcerated left inguinal hernia repair Sigmoid colectomy with colostomy Left orchectomy Omentectomy Denies any vomiting or diarrhea. I have personally reviewed the past medical history, past surgical history, medications, social history, and family history, and I have updated the database accordingly. Past Medical History: Past Medical History: Diagnosis Date [place]25 admission Acute renal failure (ARF) occured at time of GI bleed Atrial fibrillation [place] Bluish skin discoloration CHF [place]congestive heart failure) [place] 2012 initial EF 15 % // last ECHO 55 % Cholecystitis Contracture of finger joint Patient had an accident on a ladder causing deformity and this eventually developed into a contracture. Patient elected not to have surgery. 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) 06/2016 rx with TPA Past Surgical History: Past Surgical History: Procedure Laterality Date CARDIAC CATHETERIZATION COLONOSCOPY diverticulosis / lg ingunial hernia CREATION COLOSTOMY Left 01/14/2025 Performed by Delmar Ramirez MD at [facility] ESOPHAGOGASTRODUODENOSCOPY severe errosis gastritis and duodenitis ORCHIECTOMY Left 01/14/2025 Performed by Delmar Ramirez MD at [facility] REPAIR HERNIA INGUINAL Left 01/14/2025 Performed by Delmar Ramirez MD at [facility] TONSILLECTOMY Medications: acetaminophen, 1,000 mg, oral, Q6H RAYSA apixaban, 5 mg, oral, BID chlorhexidine, 15 mL, mouth/throat, BID dilTIAZem CD, 180 mg, oral, Daily melatonin, 6 mg, oral, Nightly metoprolol tartrate, 50 mg, oral, BID micafungin, 100 mg, intravenous, Q24H piperacillin-tazobactam (ZOSYN) IV, 3.375 g, intravenous, Q8H [COMPLETED] Consult PICC nurse - PICC, , , Once AND sodium chloride, 10 mL, intravenous, Q12H AND sodium chloride, 10 mL, intravenous, PRN AND sodium chloride, 20 mL, intravenous, PRN Social History: Social History Socioeconomic History Marital status: Single [...] Resource Strain: Not on file Food Insecurity: Patient Unable To Answer (01/15/2025) Hunger Screening Food Insecurity - Worry: Patient unable to answer Food Insecurity - Inability: Patient unable to answer Transportation Needs: Patient Unable To Answer (01/14/2025) PRAPARE - Transportation Lack of Transportation (Medical): Patient unable to answer Lack of Transportation (Non-Medical): Patient unable to answer Physical Activity: Not on file Stress: Not on file Social Connections: Not on file Interpersonal Safety: Patient Unable To Answer (01/14/2025) Humiliation, Afraid, Rape, and Kick questionnaire Fear of Current or Ex-Partner: Patient unable to answer Emotionally Abused: Patient unable to answer Physically Abused: Patient unable to answer Sexually Abused: Patient unable to answer Housing Instability: Patient Unable To Answer (01/14/2025) Housing Instability Housing Instability: Patient unable to answer Family History: Family History Problem Relation Age of Onset No Known Problems Mother Heart attack Father 40 Heart disease Father Heart disease Sister Heart disease Sister Allergies: Patient has no known allergies. Review of Systems: CONSTITUTIONAL: negative EYES: negative HEENT: negative RESPIRATORY: Cough CARDIOVASCULAR: negative GASTROINTESTINALAbdominal pain GENITOURINARY: negative INTEGUMENT/BREAST: negative HEMATOLOGIC/LYMPHATIC: negative ALLERGIC/IMMUNOLOGIC: negative ENDOCRINE: negative MUSCULOSKELETAL: negative NEUROLOGICAL: negative BEHAVIOR/PSYCH: negative Physical Examination : BP 101/50 Pulse 101 Temp 36.4 ??C (97.6 ??F) (Oral) Resp 18 Ht 177.8 cm (5' 10 ) Wt 84.8 kg (186 lb 15.2 oz) SpO2 93% BMI 26.82 kg/m?? Temperature Range: Temp: 36.4 ??C (97.6 ??F) Temp Av.5 ??C (97.7 ??F) Min: 36.4 ??C (97.6 ??F)Max: 36.6 ??C (97.9 ??F) CONSTITUTIONAL: awake, alert, cooperative, no apparent distress, EYES:rt and left eyes Lids and lashes normal, sclera clear, conjunctiva normal ENT: Normocephalic, without obvious abnormality, atraumatic, oral pharynx with moist mucus membranes, rt and left ear with no deformity NECK: Supple, symmetrical, trachea midline, no thyroid deformity LUNGS: No increased work of breathing, ABDOMEN: Soft, osteo MUSCULOSKELETAL:both upper and lower extremities with no redness, warmth, or swelling NEUROLOGIC: Awake, alert, oriented to name, place and time. Follow commands. Cranial nerves grosslyintact SKIN: no rash Medical Decision Making: I have independently reviewed/ordered the following labs: CBC with Differential: Results from last 7 days Lab Units 01/20/25 0420 01/19/25 0308 01/18/25 0428 WBC x10E9/L 14.6* 16.7* 19.0* HEMOGLOBIN g/dL 11.4* 11.2* 12.0* HEMATOCRIT % 34.0* 33.2* 36.1* PLATELETS X10E9/L 334 340 393 BMP: Results from last 7 days Lab Units 01/20/25 0420 01/19/25 0828 01/19/25 0308 01/18/25 1153 01/18/25 0428 POTASSIUM mmol/L 4.1 3.9 3.6 4.3 3.7 CHLORIDE mmol/L 98 -- 99 -- 98 CO2 mmol/L 33* -- 33* -- 33* BUN mg/dL 26 -- 29* -- 36* CREATININE mg/dL 0.87 -- 0.94 -- 0.98 EGFR (CKD-EPI) NON-RACE DEPENDENT ml/min/1.73sq.m >90 -- 86 -- 81 CALCIUM mg/dL 8.0* -- 8.0* -- 8.4* MAGNESIUM mg/dL 1.9 -- 2.0 2.3 1.8 LFTs: Results from last 7 days Lab Units 01/20/25 0420 01/19/25 0308 01/18/25 0428 ALK PHOS U/L 52 48 60 ALT U/L 32 28 35 AST U/L 41 18 24 Vanco: Inflam markers: No results found for: CRP No results found for: SEDRATE Cultures: Microbiology Results Procedure Component Value Units Date/Time Blood culture #1 [[id number]] Collected: 01/14/25 1328 Specimen: Blood, Venous Updated: 01/19/251900 CULTURE RESULTS NO GROWTH 5 DAYS Blood culture #2 [[id number]] Collected: 01/14/25 1253 Specimen: Blood, Venous Updated: 01/19/25 190 CULTURE RESULTS NO GROWTH 5 DAYS Anaerobic culture [[id number]] (Abnormal) Collected: 01/14/25 1012 Specimen: Aspirate from Abdomen Updated: 01/19/25 1001 CULTURE RESULTS Many Bacteroides fragilis Many Bacteroides ovatus/xylanisolvens Aspirate culture includes gram stain [[id number]] (Abnormal) (Susceptibility) Collected: 01/14/25 1012 Specimen: Aspirate from Abdomen Updated: 01/17/25 1134 CULTURE RESULTS Rare Escherichia coli Rare Streptococcus gordonii Rare Edith utilis GRAM STAIN >25 White Blood Cells/LPF 0 Squamous Epithelial Cells/LPF Many Gram negative bacilli Many Gram positive coccobacilli Susceptibility Escherichia coli Not Specified AMP/SULBACTAM <=2.0 Susceptible Ampicillin 8.0 Susceptible Cefazolin (non-urinary) <=1.0 Susceptible Cefazolin (urinary) <=1.0 Susceptible Ceftriaxone <=0.25 Susceptible Ciprofloxacin <=0.06 Susceptible Gentamicin <=1.0 Susceptible Levofloxacin <=0.12 Susceptible PIPERACIL/TAZOBACTAM <=4.0 Susceptible Imaging Studies: X-ray chest 1 view Result Date: 01/19/2025 Narrative: CLINICAL HISTORY: Respiratory failure Comparison: 01/17/2025 Views: 1 view FINDINGS: * Left pleural effusion with atelectasis. This may be slightly improved. Otherwise no new infiltrate. Heart size stable. Central line overlies SVC. IMPRESSION: * Gradually improving chest as above. Finalized by Fernando Champagne MD on 01/19/2025 3:34 PM X-ray chest 1 view Result Date: 01/17/2025 Narrative: CLINICAL INFORMATION: Shortness of breath COMPARISON: Chest radiograph dated 01/16/2025. VIEWS: 1. FINDINGS: Interval worsening with large left basilar infiltrate and atelectasis. Probable moderate left pleural effusion. Cardiac and mediastinal shadows are normal. No pneumothorax. No free air below the diaphragm. IMPRESSION: Interval worsening with large left basilar infiltrate and atelectasis. Probable moderate left pleural effusion. Finalized by Marcin Jennings 01/17/2025 12:10 PM X-ray chest 1 view Result Date: 01/16/2025 Narrative: Single view chest History: SOB. Chest pain. Comparison: 01/15/2025 Findings: Single portable view of the chest. Interval extubation. Right-sided PICC line in unchanged position. Cardiac silhouette is stable. New small left- sided pleural effusion with bibasilar atelectasis and mild interstitial edema. Impression: 1. New small left-sided pleural effusion with bibasilar atelectasis. 2. Interval extubation. Finalized by Suhas Arellano MD on 01/16/2025 10:20 AM X-ray chest 1 view Result Date: 01/15/2025 Narrative: XR CHEST 1 VW Clinical Information: resp failure Comparison: 01/14/2025. IMPRESSION: * Unchanged lines and tubes. * Minimal basilar atelectasis, trace left effusion. * Cardiomegaly. Finalized by Jeb Luciano MD on 01/15/2025 7:50 AM X-ray chest 1 view Result Date: 01/14/2025 Narrative: History: PICC line placement Technique: A portable single frontal view of the chest was obtained. Comparison: 01/14/2025 at 106. Findings: There is a PICC line approaching from the right with its tip this. Vena cava. An endotracheal tube is seen with its tip approximate 6.4 cm above the mellisa. An enteric tube is seen with its tip in the stomach however its side port is at the level of the gastroesophageal junction, retracted slightly since the previous examination. Advancement further the stomach is recommended. There is no evidence for active cardiovascular or pulmonary disease. Impression: * Right- sided PICC line has its tip in the superior vena cava * The enteric tube has retracted slightly since the previous examination and its side-port is now at the level the gastroesophageal junction * Endotracheal tube in place with its tip above the mellisa. Finalized by Reynaldo Decker MD on 01/14/2025 8:57 PM X-ray chest 1 view Result Date: 01/14/2025 Narrative: XR CHEST 1 VW History: Postop. Check [...] Marry Villareal MD on 01/14/2025 2:20 PM Echo complete W/O contrast Result Date: 01/14/2025 [...] moderate pulmonary hypertension. Mitral Valve: The leaflets aremoderately thickened. There is mild annular calcification. There [...] ultrasound of the kidneys and urinary bladder. [id number] Finalized by Russell Brantley MD on 01/13/2025 [...] Finalized by Jose Luis Asif MD on 1:48 AM X-ray chest 1 view Result Date: [...] Pasha Young MD on 01/12/2025 6:08 PM Thank you for allowing us to participate in the care of this patient. Please call with questions. Karri Aguilera MD [employer] messagin This note was completed using a voice armature inspector system. Every effort was made to ensure accuracy. However, inadvertent computerized armature inspector errors may be present. * Lanny Evans MD - 01/15/2025 2:06 PM EDT Images from the original note were not included. [facility] [address] [place] [address] HISTORY & PHYSICAL / CONSULT NOTE Paul Guerrero PCP: NO PCP, NO PCP Date of Admission: 01/14/2025 Date of Consultation: 01/15/2025 2:10 PM Consult for atrial fibrillation with RVR SUBJECTIVE History of Present Illness: Paul Guerrero is a 74 y.o. male with history of nonischemic cardiomyopathy with recovered EF, nonobstructive coronary disease, paroxysmal atrial fibrillation, CVA,peripheral artery disease. Patient transferred from [facility] yesterday. Was admitted there 01/12/2025 after mechanicalfall at home. Was diagnosed with rhabdomyolysis. Patient has a hernia which was started to be incarcerated. Underwent laparotomy with hernia repair, omentectomy and Hartmans procedure yesterday. Patient has been in AFib RVR. Was referred to [facility] for further management. Patient was intubated. Overnight received IV digoxin 500 mcg for rate control. Was extubated this morning. At the time I saw him he was resting comfortably in bed. Denied any chest pain or shortness of breath or palpitations or dizziness orthopnea or edema. Telemetry showing patient atrial fibrillation with heart rate in the 120s when seen. Off of pressors. Vitals reviewed. Labs reviewed. EKGs/ reviewed. Chest x-ray yesterday reviewed. Echocardiogramdone yesterday reviewed. Previous Medical History: Past Medical History: Diagnosis Date A-fib (CMS-HCC) 01/14/2025 admission Acute renal failure (ARF) occured at time of GI bleed Atrial fibrillation ([facility] Bluish skin discoloration [place]F (congestive heart failure[place] initial EF 15 % // last ECHO 55 % Cholecystitis Contracture of finger joint Patient had an accident on a ladder causing deformity and this eventually developed into a contracture. Patient elected not to have surgery. 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 / [facility] / Dr Bruce/ CTA Occult blood in stools abn fit test Peptic ulceration GI bleed Pneumonia Respiratory failure [place] occured at time of GI bleed Stroke [place] 06/2016 rx with TPA Previous Surgical History: Past Surgical History: Procedure Laterality Date CARDIAC CATHETERIZATION COLONOSCOPY diverticulosis / lg ingunial hernia CREATION COLOSTOMY Left 01/14/2025 Performed by Delmar Ramirez MD at [facility] ESOPHAGOGASTRODUODENOSCOPY severe errosis gastritis and duodenitis ORCHIECTOMY Left 01/14/2025 Performed by Delmar Ramirez MD at [facility] REPAIR HERNIA INGUINAL Left 01/14/2025 Performed by Delmar Ramirez MD at [facility] TONSILLECTOMY Allergies: No Known Allergies Hospital Meds: Current Facility-Administered Medications Medication Dose Route Frequency Provider Last Rate Last Admin acetaminophen (TYLENOL EXTRA STRENGTH) tablet 500 mg 500 mg oral Q6H PRN PAT Ybarra alum-mag hydroxide-simeth (MAALOX) 200-200-20 mg/5 mL suspension 30 mL 30 mL oral PCHSP PAT Ybarra cefTRIAXone (ROCEPHIN) 1,000 mg in sodium chloride 0.9 % 50 mL IVPB W/ADAPTER 1,000 mg intravenous Q24H PAT Ybarra Stopped at 01/14/252108 chlorhexidine (PERIDEX) 0.12 % solution 15 mL 15 mL mouth/throat BID Travis Agrawal MD 15 mL at 01/15/25 0818 famotidine (PF) (PEPCID) injection 20 mg 20 mg intravenous Q24H PATRICK YbarraPRIVATE EQUITY ANALYST 20 mg at 01/14/25 1759 magnesium sulfate IVPB 2000 mg/50 mL in iso-osmotic water (40 mg/mL premix) 2,000 mg intravenous PRN Brenda Millan, ELEVATOR RUNNER-PRIVATE EQUITY ANALYST magnesium sulfate IVPB 4000 mg/100 mL in iso-osmotic water (40 mg/mL premix) 4,000 mg intravenous PRN Brenda Millan, ELEVATOR RUNNER-PRIVATE EQUITY ANALYST metoprolol (LOPRESSOR) injection 2.5 mg 2.5 mg intravenous Q6H PRN Alis Weems MD 2.5 mg at 01/15/25 0547 metroNIDAZOLE (FLAGYL) IVPB 500 mg/100 mL in iso-osmotic sodium chloride (5 mg/mL premix) 500 mg intravenous Q12H Brenda Millan, ELEVATOR RUNNER-PRIVATE EQUITY ANALYST Stopped at 01/15/25 0640 ondansetron (PF) (ZOFRAN) injection 4 mg 4 mg intravenous Q4H PRN Brenda Millan, ELEVATOR RUNNER-PRIVATE EQUITY ANALYST potassium chloride (K-TAB,KLOR-CON) CR tablet 30-50 mEq 30-50 mEq oral PRN Brenda Millan, ELEVATOR RUNNER-PRIVATE EQUITY ANALYST Or potassium chloride (KAYCIEL) 20 mEq/15 mL solution 30-50 mEq 30-50 mEq oral PRN Brenda Millan, ELEVATOR RUNNER-PRIVATE EQUITY ANALYST Or potassium chloride IVPB 10 mEq/100 mL in water (0.1 mEq/mL premix) 10 mEq intravenous PRN Brenda Millan, ELEVATOR RUNNER-PRIVATE EQUITY ANALYST sennosides-docusate sodium (SENOKOT-S) 8.6-50 mg 1 tablet 1 tablet oral Q12H PRN Brenda Millan, ELEVATOR RUNNER-PRIVATE EQUITY ANALYST sodium chloride 0.9 % flush 10 mL 10 mL intravenous Q12H Brenda Millan, ELEVATOR RUNNER- PRIVATE EQUITY ANALYST 10 mL at 01/15/25 0242 And sodium chloride 0.9 % flush 10 mL 10 mL intravenous PRN Brenda Millan, ELEVATOR RUNNER-PRIVATE EQUITY ANALYST And sodium chloride 0.9 % flush 20 mL 20 mL intravenous PRN Brenda Millan, ELEVATOR RUNNER-PRIVATE EQUITY ANALYST sodium chloride 0.9 % infusion 100 mL/hr intravenous Continuous Brenda Monty, ELEVATOR RUNNER-PRIVATE EQUITY ANALYST 100 mL/hrat 01/15/25 1258 Rate Verify at 01/15/25 1258 sodium chloride 0.9 % infusion 3 mL/hr intra-arterial Continuous Travis Agrawal MD 3 mL/hr at 01/15/25 1258 3 mL/hr at 01/15/25 1258 Home Meds: Prior to Admission medications Medication Sig Start Date End Date Taking? Authorizing Provider apixaban (ELIQUIS) 5 mg tablet Take 1 tablet (5 mg total) by mouth in the morning and 1 tablet (5 mg total) before bedtime. Patient taking differently: Take 1 tablet (5 mg total) by mouth in the morning and 1 tablet (5 mg total) before bedtime. Last dose was given at [facility] 01/13 930 Prior to transfer. 06/03/24 Yes PAT Sparks metoprolol tartrate (LOPRESSOR) [...] Heart disease Sister Review of Systems: Constitutional: No fever or chills. Generally feeling weak Eyes: No visual changes or diplopia, no scleral icterus. ENT: No Headaches, hearing loss or vertigo. No sore throat Cardiovascular: See HPI Respiratory: No cough or wheezing, no sputum production, no hematemesis. Gastrointestinal: + abdominal pain Genitourinary: No dysuria, trouble voiding, or hematuria Musculoskeletal: No gait disturbance, + weakness in the knees giving out Integumentary: No rash or pruritis Neurological: No headache, focal muscle weakness, focal numbness or tingling. OBJECTIVE LAST LABS: CBC: Results from last 7 days Lab Units 01/15/25 0310 01/14/25 1253 01/14/25 0425 WBC x10E9/L 14.4* 13.3* 32.8* HEMOGLOBIN g/dL 10.3* 10.5* 13.1 HEMATOCRIT % 30.7* 31.1* 40.0 MCV fL 93 94 95 PLATELETS X10E9/L 246 194 331 BMP: Results from last 7 days Lab Units 01/15/25 0310 01/14/25 1252 01/14/25 0425 01/13/25 1332 SODIUM mmol/L 134 133* 132* -- POTASSIUM mmol/L 4.2 4.6 4.5 3.9 CHLORIDE mmol/L 102 99 96* -- CO2 mmol/L 26 24 23 -- BUN mg/dL 40* 42* 43* -- CREATININE mg/dL 1.35* 1.40* 1.80* -- CALCIUM mg/dL 8.2* 8.3* 8.8 -- MAGNESIUM mg/dL 2.2 -- 2.6 3.0* PT/INR: Results from last 7 days Lab Units 01/12/25 1711 PROTIME sec 24.7* INR 2.1* APTT: MAG: Results from last 7 days Lab Units 01/15/25 0310 01/14/25 0425 01/13/25 1332 MAGNESIUM mg/dL 2.2 2.6 3.0* D Dimer: Results from last 7 days [...] Value Date HGBA1C 6.3 (H) 09/04/2012 ABG: RADIOLOGY: X-ray chest 1 view Result Date: 01/15/2025 XR CHEST 1 VW Clinical Information: resp failure Comparison: 01/14/2025. IMPRESSION: * Unchanged lines and tubes. * Minimal basilar atelectasis, trace left effusion. * Cardiomegaly. Finalized by Jeb Luciano MD on 01/15/2025 7:50 AM X-ray chest 1 view Result Date: 01/14/2025 History: PICC line placement Technique: A portable single frontal view of the chest was obtained. Comparison: 01/14/2025 at 106. Findings: There is a PICC line approaching from the right with its tip this. Vena cava. An endotracheal tube is seen with its tip approximate 6.4 cm above the mellisa. An enteric tube is seen with its tip in the stomach however its side port is at the level of the gastroesophageal junction, retracted slightly since the previous examination. Advancement further the stomach is recommended. There is no evidence for active cardiovascular or pulmonary disease. Impression: * Right-sided PICC line has its tip in the superior vena cava * The enteric tube has retracted slightly since the previous examination and its side-port is now at the level the gastroesophageal junction * Endotracheal tube in place with its tip above the mellisa. Finalized by Reynaldo Decker MD on 01/14/2025 8:57 PM PHYSICAL EXAM Admission Weight: Weight: 83.2 kg (183 lb 6.8 oz) I/O last 3 completed shifts: In: 157.7 [I.V.:113.4; IV Piggyback:44.3] Out: 1115 [Urine:950; Drains:165] Weight change: Wt Readings from Last 3 Encounters: 01/15/25 84.8 kg (186 lb 15.2 oz) 01/14/25 83.2 kg (183 lb 6.8 oz) 05/19/24 80.5 kg (177 lb 6.4 oz) Vitals: Vitals: 01/15/25 1100 01/15/25 1138 01/15/25 1200 01/15/25 1300 BP: 116/79 119/78 111/61 Pulse: (!) 123 (!) 137 (!) 123 121 Resp: 25 25 (!) 27 (!) 28 Temp: 37 ??C (98.6 ??F) TempSrc: Oral SpO2: 100% 98% 98% 98% Weight: Height: Admit Weight Weight: 83.2 kg (183 lb 6.8 oz) Last 3 Weights Last 3 Weight Readings 01/14/25 1524 01/15/25 0500 Weight: 83.2 kg (183 lb 6.8 oz) 84.8 kg (186 lb 15.2 oz) Body mass index is 26.82 kg/m??. INTAKE/OUTPUT I/O last 3 completed shifts: In: 157.7 [I.V.:113.4; IV Piggyback:44.3] Out: 1115 [Urine:950; Drains:165] Intake/Output Summary (Last 24 hours) at 01/15/2025 1410 Last data filed at 01/15/2025 1258 Gross per 24 hour Intake 2337.32 ml Output 1570 ml Net 767.32 ml EKG: No results found. ECHO (Last) Echo complete W/O contrast Result Date: 01/14/2025 Left Ventricle: Left ventricle appears normal in size. There is mild asymmetric increased wall thickness/hypertrophy. Systolic function is normal with an ejection fraction of 55-60%. The quantitativeEF by 2D Mitchell biplane is 61%. No obvious regional wall motion abnormalities. Unable to assess diastolic function due to atrial fibrillation/flutter. Right Ventricle: Right ventricular size appearsnormal. The right ventricular basal diameter is 36.0 mm. Normal systolic excursion velocity by TDI (>9.5 cm/s). Tricuspid Valve: There is moderate regurgitation. There is no evidence of tricuspid valve stenosis. There is moderate pulmonary hypertension. Mitral Valve: The leaflets are moderately t hickened. There is mild annular calcification. There is moderate regurgitation with a centrally directed jet. There is no evidence of mitral valve stenosis. General appearance: Alert oriented and cooperative, in no acute distress Skin: Warm and dry to touch Head: Normocephalic, without obvious abnormality, atraumatic Eyes: Conjunctivae unremarkable, EOMs intact, sclera non icteric Neck: No JVD, no carotid bruit, neck supple, trachea midline Lungs: Clear to ausculation bilaterally, no use of accessory muscles. Heart:: Irregularly irregular rhythm, fast rate, with normal S1 and S2 , no murmurs and no gallops. Abdomen: Soft, non-tender, bowel sounds normal Extremities: No edema Neurologic: Oriented to time, person and place, affect appropriate, no focal/major motor or sensorydefects noted Psychiatric: Appropriate mood, memory and judgment ASSESSMENT Paroxysmal atrial fibrillation with RVR on home Chaka FIGUEROA with recovered EF 61% TTE 01/14/2025 Mod MR, mod TR Nonobstructive CAD [facility] 2013 Mechanical fall-> rhabdomyolysis Hx CVA s/p lytic therapy Incarcerated hernia/bowel perf s/p laparotomy 01/14/25 PAD Acute kidney injury PLAN - patient in AFib RVR when seen. Asymptomatic. Systolic blood pressure in the 130s. Off of pressors. - going to start low-dose IV Cardizem infusion for rate control. Plan to switch to p.o. Cardizem when able to tolerate oral meds. -plan to start anticoagulation as soon as possible when cleared by surgical team for prevention of thromboembolic events. - will follow-up. LANNY EVANS MD * Please be advised that this note was generated using dictation software. Any discrepancies are unintentional. If you have any questions about the content of this note, please reach out to our office for clarification. * Hanane Marie MD - 01/14/2025 6:11 PM EDTAssociated Order(s): IP CONSULT TO UROLOGY Images from the original note were not included. Jr. Patel Gregor, M.D., Vishal Fischer M.D., Jason Stevenson M.D., Chaim Gonzalez M.D., Michelle Washington M.D., Hanane Marie M.D., Joaquim Zuniga M.D, Ph.D, Reynaldo Smart M.Erlin., Ashu Somers MD, Chata Yusuf MD Urology Consult Note Patient: Paul Guerrero Date of : 1950 CHIEF COMPLAINT: difficult blackwell HISTORY OF PRESENT ILLNESS: The patient is a 74 y.o. male who presented as a transfer from [facility]. Earlier today he presented and underwent emergency surgery for incarcerated L inguinal hernia including hernia repair,sigmoid colectomy with colostomy, left orchiectomy and omentectomy due to findings of perforated sigmoid colon, defitalized L testicle, dord and omentum. Per report, there were multiple attempts madeto place a blackwell which were unsuccessful. He was transferred to [facility] intubate and sedated. He had gross blood per meatus. Bladder scan earlier this afternoon was 285 mL. He has not voided. Urology was consulted for blackwell placement. Patient's old records, notes and chart reviewed and summarized above. Past Medical History: Past Medical History: [place] [place]25 admission Acute renal failure (ARF) occured at time of GI bleed Atrial fibrillation [place] Bluish skin discoloration [place]congestive heart failure) [place] 2012 initial EF 15 % // last ECHO 55 % Cholecystitis Contracture of finger joint Patient had an accident on a ladder causing deformity and this eventually developed into a contracture. Patient elected not to have surgery. 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 / [facility] / Dr Bruce/ CTA Occult blood in stools abn fit test Peptic ulceration GI bleed Pneumonia Respiratory failure [place] occured at time of GI bleed Stroke [place] 06/2016 rx with TPA Past Surgical History: Past Surgical History: Procedure Laterality Date CARDIAC CATHETERIZATION COLONOSCOPY diverticulosis / lg ingunial hernia ESOPHAGOGASTRODUODENOSCOPY severe errosis gastritis and duodenitis TONSILLECTOMY Previous surgery: unknown Medications: Scheduled Meds: cefTRIAXone (ROCEPHIN) IV, 1,000 mg, intravenous, Q24H chlorhexidine, 15 mL, mouth/throat, BID famotidine, 20 mg, intravenous, Q24H metroNIDAZOLE, 500 mg, intravenous, Q12H [COMPLETED] Consult PICC nurse - PICC, , , Once AND sodium chloride, 10 mL, intravenous, Q12H AND sodium chloride, 10 mL, intravenous, PRN AND sodium chloride, 20 mL, intravenous, PRN Continuous Infusions: norepinephrine, 0.01-0.2 mcg/kg/min, Last Rate: 0.04 mcg/kg/min (01/14/25 1603) propofoL, 5-50 mcg/kg/min, Last Rate: 35 mcg/kg/min (01/14/25 1535) sodium chloride 0.9 %, 100 mL/hr, Last Rate: 100 mL/hr (01/14/25 1729) PRN Meds:. acetaminophen alum-mag hydroxide-simeth magnesium sulfate magnesium sulfate ondansetron perflutren lipid microspheres (DEFINITY) dilution injection 1.43 mg/10 mL potassium chloride OR potassium chloride OR potassium chloride IV (Adult) sennosides-docusate sodium sodium chloride [COMPLETED] Consult PICC nurse - PICC AND sodium chloride AND sodium chloride AND sodium chloride Allergies: Patient has no known allergies. Social History: Social History Socioeconomic History Marital status: Single [...] Resource Strain: Not on file Food Insecurity: Patient Unable To Answer (01/14/2025) Hunger Screening Food Insecurity - Worry: Patient unable to answer Food Insecurity - Inability: Patient unable to answer Transportation Needs: Patient Unable To Answer (01/14/2025) PRAPARE - Transportation Lack of Transportation (Medical): Patient unable to answer Lack of Transportation (Non-Medical): Patient unable to answer Physical Activity: Not on file Stress: Not on file Social Connections: Not on file Interpersonal Safety: Patient Unable To Answer (01/14/2025) Humiliation, Afraid, Rape, and Kick questionnaire Fear of Current or Ex-Partner: Patient unable to answer Emotionally Abused: Patient unable to answer Physically Abused: Patient unable to answer Sexually Abused: Patient unable to answer Housing Instability: Patient Unable To Answer (01/14/2025) Housing Instability Housing Instability: Patient unable to answer Family History: Family History Problem Relation Age of Onset No Known Problems Mother Heart attack Father 40 Heart disease Father Heart disease Sister Heart disease Sister Previous Urologic Family history: unknown REVIEW OF SYSTEMS: Unable to obtain Physical Exam: This a 74 y.o. patient Patient Vitals for the past 24 hrs: BP Temp Temp src Pulse Resp SpO2 Height Weight 01/14/25 1800 103/64 -- -- 106 18 100 % -- -- 01/14/25 1745 97/ -- -- 112 18 100 % -- -- 01/14/25 1730 90/ -- -- 101 18 100 % -- -- 01/14/25 1715 105/ -- -- 106 18 100 % -- -- 01/14/25 1700 101/65 -- -- 102 18 100 % -- -- 01/14/25 1645 97/ -- -- 101 18 100 % -- -- 01/14/25 1630 90/ -- -- 80 22 98 % -- -- 01/14/25 1615 108/ -- -- 97 15 97 % -- -- 01/14/25 1603 -- -- -- 94 -- -- -- -- 01/14/25 1600 106/67 -- -- 92 14 97 % -- -- 01/14/25 1545 109/65 -- -- 95 18 96 % -- -- 01/14/25 1530 100/68 -- -- 100 18 97 % -- -- 01/14/25 1525 99/63 -- -- 92 18 97 % 177.8 cm (5' 10 ) -- 01/14/25 1524 -- -- -- -- -- -- -- 83.2 kg (183 lb 6.8 oz) 01/14/25 1510 99/63 36.3 ??C (97.3 ??F) Oral 92 18 97 % -- -- Constitutional: intubated, sedated Neuro:sedated Skin: Normal Lungs: on vent Abdomen: stoma pink : scrotum with pitting edema, skin otherwise healthy. Gross blood from meatus. LABS: Results from last 7 days Lab Units 01/14/25 1253 01/14/25 0425 01/13/25 0437 WBC x10E9/L 13.3* 32.8* 17.3* HEMOGLOBIN g/dL 10.5* 13.1 12.5* HEMATOCRIT % 31.1* 40.0 37.0* PLATELETS X10E9/L 194 331 211 Results from last 7 days Lab Units 01/14/25 1252 01/14/25 0425 01/13/25 1332 01/13/25 0437 POTASSIUM mmol/L 4.6 4.5 3.9 3.6 CHLORIDE mmol/L 99 96* -- 99 CO2 mmol/L 24 23 -- 24 BUN mg/dL 42* 43* -- 40* CREATININE mg/dL 1.40* 1.80* -- 1.77* GLUCOSE mg/dL 130* 115* -- 129* CALCIUM mg/dL 8.3* 8.8 -- 8.1* No results found for: PSA Additional Lab/culture results: none Urinalysis: Lab Results Component Value Date COLOR Yellow 01/13/2025 COLOR YELLOW 09/04/2012 TURBIDITY Cloudy (A) 01/13/2025 TURBIDITY CLEAR 09/04/2012 SPECIFICGRA 1.025 01/13/2025 SPECIFICGRA 1.025 06/01/2016 SPECIFICGRA 1.006 09/04/2012 NITRITE Negative 01/13/2025 NITRITE Negative 09/04/2012 PHURINE 6.0 01/13/2025 PHURINE 5.0 09/04/2012 LEUKOCYTE Negative 01/13/2025 LEUKOCYTE Negative 06/01/2016 LEUKOCYTE Negative 09/04/2012 PROTEIN 30 mg/dL (A) 01/13/2025 PROTEIN Negative 09/04/2012 KETONES Negative 01/13/2025 KETONES Negative 09/04/2012 UROBILINOGEN 0.2 eu/dL 01/13/2025 UROBILINOGEN 0.2 06/01/2016 UROBILINOGEN 0.2 09/04/2012 BLOODHGB Large (A) 01/13/2025 BLOODHGB SMALL (A) 09/04/2012 Imaging Results: I personally reviewed the images and independently interpreted the following study: BEULAH 01/13/25: neg Assessment and Plan Impression: 74 y.o. male with history of incarcerated and strangulated inguinal hernia s/p repair, intubaed andsedated with foleyunable to be palced at [facility] Plan: 18 Fr coude blackwell placed without difficulty. Can be removed at the discretion of the primary service. Hanane Marie MD 6:11 PM 01/14/2025 * Travis Agrawal MD - 01/14/2025 4:28 PM EDTAssociated Order(s): IP CONSULT TO PULMONOLOGY PULMONARY / CRITICAL CARE CONSULT Name: Paul Guerrero Date: 01/14/2025 Length of Stay: 0 day(s) Resp failure, hypotension REASON FOR VISIT: resp failure, hypotension REFERRING PHYSICIAN: Dr Horvath History of Present Illness: 74 y.o. male who presents to the ED at [facility] on 01/12/25 for evaluation of a fall. Pt states that he was fine a few days ago. He explains that on Saturday he was fine then on Saturday he woke up and had ahernia on his testicles. He includes that he [...] He includes that he does have a-fib. Patient was noted to have strangulated inguinal hernia; underwent surgery and has been on vent postop, requiring pressors, and has been transferred to [facility] for further management. He was noted to have incarcerated left inguinal hernia containing perforated sigmoid colon and underwent colon resection, colostomy and left orchiectomy. Review of Systems: On vent, sedated Past Medical History: Diagnosis [place] 01/14/2025 admission Acute renal failure (ARF) occured at time of GI bleed Atrial fibrillation [place] Bluish skin discoloration CHF (congestive heart failure) [place] 2012 initial EF 15 % // last ECHO 55 % Cholecystitis Contracture of finger joint Patient had an accident on a ladder causing deformity and this eventually developed into a contracture. Patient elected not to have surgery. 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 / [facility] / Dr Bruce/ CTA Occult blood in stools abn fit test Peptic ulceration GI bleed Pneumonia Respiratory failure [place] occured at time of GI bleed Stroke [place] 06/2016 rx with TPA Past Surgical History: Procedure Laterality Date CARDIAC CATHETERIZATION COLONOSCOPY diverticulosis / lg ingunial hernia ESOPHAGOGASTRODUODENOSCOPY severe errosis gastritis and duodenitis TONSILLECTOMY Review of Systems Medications Prior to Admission Medication Sig Dispense Refill Last Dose/Taking apixaban (ELIQUIS) 5 mg tablet Take 1 tablet (5 mg total) by mouth in the morning and 1 tablet (5 mg total) before bedtime. 180 tablet 2 metoprolol tartrate (LOPRESSOR) 50 mg tablet Take 1 tablet (50 mg total) by mouth in the morning and 1 tablet (50 mg total) before bedtime. 180 tablet 3 chlorhexidine, 15 mL, mouth/throat, BID Consult PICC nurse - PICC, , , Once AND sodium chloride, 10 mL, intravenous, Q12H AND sodium chloride, 10 mL, intravenous, PRN AND sodium chloride, 20 mL, intravenous, PRN norepinephrine, 0.01-0.2 mcg/kg/min, Last Rate: 0.04 mcg/kg/min (01/14/25 1603) propofoL, 5-50 mcg/kg/min, Last Rate: 35 mcg/kg/min (01/14/25 1535) sodium chloride 0.9 %, 100 mL/hr No Known Allergies Family History Problem Relation Age of Onset No Known Problems Mother Heart attack Father 40 Heart disease Father Heart disease Sister Heart disease Sister Social History Socioeconomic History Marital status: Single Tobacco Use Smoking status: Never Smokeless tobacco: Never Vaping Use Vaping status: Never Used Substance and Sexual Activity Alcohol use: No Drug use: No Sexual activity: Defer Other Topics Concern Caffeine Use Yes Social Drivers of Health Food Insecurity: Patient Unable To Answer (01/14/2025) Hunger Screening Food Insecurity - Worry: Patient unable to answer Food Insecurity - Inability: Patient unable to answer Transportation Needs: Patient Unable To Answer (01/14/2025) PRAPARE - Transportation Lack of Transportation (Medical): Patient unable to answer Lack of Transportation (Non-Medical): Patient unable to answer Interpersonal Safety: Patient Unable To Answer (01/14/2025) Humiliation, Afraid, Rape, and Kick questionnaire Fear of Current or Ex-Partner: Patient unable to answer Emotionally Abused: Patient unable to answer Physically Abused: Patient unable to answer Sexually Abused: Patient unable to answer Housing Instability: Patient Unable To Answer (01/14/2025) Housing Instability Housing Instability: Patient unable to answer Temp: [36.1 ??C (97 ??F)-36.8 ??C (98.2 ??F)] 36.3 ??C (97.3 ??F) Pulse: [86-141] 92 Resp: [8-28] 18 BP: (99-116)/(50-63) 99/63 FiO2 (%): [28 %-40 %] 40 % SpO2: [84 %-100 %] 97 % O2 Device: Endotracheal tube O2 Flow Rate (L/min): [0 L/min-3 L/min] 0 L/min O2 Device: Endotracheal tube On levophed, propofol PHYSICAL EXAM: GEN: orally intubated, sedated HEENT: Head atraumatic, normocephalic. NECK: Trachea midline, no LA CV: S1 S2 RRR RESP: Clear to auscultation bilaterally, no accessory muscle use ABD: Soft, ND, NT, normal BS, no organomegaly EXT: No edema, 2+ pulses x 4 limbs NEURO: 5/5 strength x 4 limbs, no apparent sensorimotor deficits SKIN: Warm, dry, no rash Ventilator Settings Vent Mode: VC-AC FiO2 (%): 40 % Resp Rate (Set): 18 Avea Vt (Set, L): 450 Liter PEEP/CPAP (cm H2O): 8 cm H20 Insp Time (sec): 1 sec Trigger Sensitivity Flow (L/min): 3 L/min Humidification: Heat and moisture exchanger Results from last 3 days Lab Units 01/14/25 1252 01/14/25 0425 01/13/25 1332 01/13/25 0437 01/12/25 1711 BUN mg/dL 42* 43* -- 40* 41* CREATININE mg/dL 1.40* 1.80* -- 1.77* 1.97* POTASSIUM mmol/L 4.6 4.5 3.9 3.6 3.5 CO2 mmol/L 24 23 -- 24 25 CHLORIDE mmol/L 99 96* -- 99 95* MAGNESIUM mg/dL -- 2.6 3.0* 1.6* 1.8 AST U/L 48* 88* -- 110* 105* ALT U/L 38 59* -- 46* 43* ALK PHOS U/L 57 84 -- 66 78 Results from last 3 days Lab Units 01/12/25 1711 INR 2.1* PROTIME sec 24.7* Results from last 3 days Lab Units 01/14/25 1253 01/14/25 0425 01/13/25 0437 01/12/25 1711 WBC x10E9/L 13.3* 32.8* 17.3* 22.7* HEMOGLOBIN g/dL 10.5* 13.1 12.5* 14.6 HEMATOCRIT % 31.1* 40.0 37.0* 43.9 PLATELETS X10E9/L 194 331 211 208 MCV fL 94 95 93 93 MCH pg 31.6 30.9 31.4 31.0 MCHC g/dL 33.7 32.7 33.9 33.3 RDW % 14.0 13.9 13.6 13.9 MONO ABS MAN 10*3/uL 0.4 1.0* -- 1.4* EOS ABS AUTO 10*3/uL -- -- 0.0 -- Microbiology Results Procedure Component Value Units Date/Time Blood culture #1 [[id number]] Collected: 01/14/25 1328 Specimen: Blood, Venous Updated: 01/14/25 1357 Blood culture #2 [[id number]] Collected: 01/14/25 1253 Specimen: Blood, Venous Updated: 01/14/25 1303 Anaerobic culture [[id number]] Collected: 01/14/25 1012 Specimen: Fluid from Abdomen Updated: 01/14/25 1305 Aspirate culture includes gram stain [[id number]] Collected: 01/14/25 1012 Specimen: Fluid from Abdomen Updated: 01/14/25 1305 Blood culture [[id number]] Collected: 01/12/25 1829 Specimen: Blood, Venous Updated: 01/14/25 1101 CULTURE RESULTS NO GROWTH AT 36 HOURS Blood culture [[id number]] Collected: 01/12/25 1723 Specimen: Blood, Venous Updated: 01/14/25 1101 CULTURE RESULTS NO GROWTH AT 36 HOURS SARS/FLU A+B/RSV by NAAT/Molecular (M4RT Collection Tube) [[id number]] (Normal) Collected: 01/12/25 1712 Specimen: Swab from Nasopharynx Updated: 01/12/25 181 FLU A PCR Negative FLU B PCR Negative RSV BY PCR Negative SARS COV 2 BY PCR Not Detected Narrative: The Xpert Xpress SARS-CoV-2/Flu/RSV Plus test is [...] operators who are performing tests using either O[employer] or [employer] systems and islimited to laboratories that meet [...] with specimenrepeat. Fact Sheet for Healthcare Providers: https://www.fda.gov/media/094849/download Fact Sheet for Patients: https://www.fda.gov/media/346924/download Glucose Results from last 7 days Lab Units 01/14/25 1252 01/14/25 0425 01/13/25 0437 01/12/25 1711 GLUCOSE mg/dL 130* 115* 129* 125* No intake/output data recorded. Microbiology Results Procedure Component Value Units Date/Time Blood culture #1 [[id number]] Collected: 01/14/25 1328 Specimen: Blood, Venous Updated: 01/14/25 1357 Blood culture #2 [[id number]] Collected: 01/14/25 1253 Specimen: Blood, Venous Updated: 01/14/25 1303 Anaerobic culture [[id number]] Collected: 01/14/25 1012 Specimen: Fluid from Abdomen Updated: 01/14/25 1305 Aspirate culture includes gram stain [[id number]] Collected: 01/14/25 1012 Specimen: Fluid from Abdomen Updated: 01/14/25 1305 Blood culture [[id number]] Collected: 01/12/25 1829 Specimen: Blood, Venous Updated: 01/14/25 1101 CULTURE RESULTS NO GROWTH AT 36 HOURS Blood culture [[id number]] Collected: 01/12/25 1723 Specimen: Blood, Venous Updated: 01/14/25 1101 CULTURE RESULTS NO GROWTH AT 36 HOURS SARS/FLU A+B/RSV by NAAT/Molecular (M4RT Collection Tube) [[id number]] (Normal) Collected: 01/12/25 1712 Specimen: Swab from Nasopharynx Updated: 01/12/25 1812 FLU A PCR Negative FLU B PCR Negative RSV BY PCR Negative SARS COV 2 BY PCR Not Detected Narrative: The Xpert Xpress SARS-CoV-2/Flu/RSV Plus test is [...] operators who are performing tests using either O[employer] DX or [employer] systems and islimited to laboratories that meet [...] with specimenrepeat. Fact Sheet for Healthcare Providers: https://www.fda.gov/media/897373/download Fact Sheet for Patients: https://www.fda.gov/media/633288/download Lines/Drains Peripheral IV 01/14/25 Left Antecubital (Active) Line Status Infusing 01/14/25 0630 Site Assessment Clean;Dry;Intact 01/14/25 0630 Dressing Type Occlusive;Transparent;Tape 01/14/25 0630 Dressing Status Clean;Dry;Intact 01/14/25 0630 Peripheral IV 01/14/25 Right Hand (Active) Closed/Suction Drain 01/14/25 1 Anterior;Left Other (Comment) Bulb (Active) Drain/Tube Status To bulb suction 01/14/25 1145 Dressing Status Clean;Dry;Intact 01/14/25 1145 Output (mL) 125 mL 01/14/25 1145 NG/OG Tube 01/14/25 Orogastric Mouth (Active) Securement Method Securing device (Describe) 01/14/25 0004 Colostomy 01/14/25 LLQ (Active) ETT 01/14/25 Cuffed Oral (Active) Secured at (cm) 23 cm 01/14/25 152 Measured from Gums 01/14/25 152 Secured Location Right 01/14/25 152 Secured by Commercial tube campa 01/14/25 152 Subglottic Port Yes 01/14/25 1525 Bite Block No 01/14/25 152 Cuff Pressure (cm H2O) 28 cm H2O 01/14/25 152 Site Condition Cool;Dry 01/14/25 152 Subglottic Secretions Scant 01/14/25 152 Subglottic Suction Frequency Intermittent suction 01/14/25 152 Arterial Line 01/14/25 Right Radial (Active) Line Status Infusing;Pulsatile blood flow;Blood return noted;Flushed 01/14/25 152 Line Interventions Zeroed and calibrated;Leveled;Tubing changed;Connections checked and tightened;Pressure bag maintained;Armboard;Flushed per protocol 01/14/25 152 Waveform Appropriate;Square wave test performed 01/14/25 152 Site Assessment Clean;Dry;Intact 01/14/25 152 Dressing Type Occlusive;Transparent with CHG gel 01/14/25 152 Dressing Status Clean;Dry;Intact 01/14/25 152 Dressing Intervention Initial dressing 01/14/25 152 Color/Movement/Sensation Capillary refill less than 3 sec 01/14/25 152 Patient Tolerance of Line Care Tolerated well 01/14/25 152 Line Necessity Frequent lab draws (minimum every 8 hrs);Invasive hemodynamic monitoring 01/14/25 152 Line Necessity Reviewed With RN 01/14/25 152 Dressing Change Due (Non-Gauze) 01/21/25 01/14/25 152 X-ray chest 1 view Result Date: 01/14/2025 XR CHEST 1 VW History: Postop. Check lines and tubes One view study. Comparison: 01/13/2025 Impression: * Gastric drainage tube has been placed. The side-port is near the EG junction. For more optimalpositioning please advance 5 cm. ET tube is visualized. The tip terminates just above the aortic knob. This is satisfactory in position. No other concerning change. No evidence of aspiration. No pneumothorax. No large effusion. Finalized by Marry Villareal MD on 01/14/2025 2:20 PM Echo complete W/O contrast Result Date: 01/14/2025 Left Ventricle: Left ventricle appears normal in size. There is mild asymmetric increased wall thickness/hypertrophy. Systolic function is normal with an ejection fraction of 55-60%. The quantitativeEF by 2D Mitchell biplane is 61%. No obvious regional wall motion abnormalities. Unable to assess diastolic function due to atrial fibrillation/flutter. Right Ventricle: Right ventricular size appearsnormal. The right ventricular basal diameter is 36.0 mm. Normal systolic excursion velocity by TDI (>9.5 cm/s). Tricuspid Valve: There is moderate regurgitation. There is no evidence of tricuspid valve stenosis. There is moderate pulmonary hypertension. Mitral Valve: The leaflets are moderately t hickened. There is mild annular calcification. There is moderate regurgitation with a centrally directed jet. There is no evidence of mitral valve stenosis. Ultrasound retroperitoneal complete Result Date: 01/13/2025 US RETROPERITONEAL COMPLETE HISTORY: Acute kidney injury COMPARISON: 09/05/2012 TECHNIQUE: Grayscaleand color Doppler sonographic images of the urinary [...] 3:08 PM Ultrasound scrotum Result Date: 01/13/2025 CLINICAL INFORMATION: testicular swelling. COMPARISON: None. [...] to overlapping structures. * Scrotal wall edema andpossible herniated bowel into the scrotal sac, consider [...] CT brain without contrast Result Date: 01/12/2025 CT BRAIN WO CONT: 01/12/2025 6:02 PM Clinical: Head injury. On anticoagulation. EXAM: NONCONTRAST BRAIN CT Comparison: CT brain 04/16/2019 Procedure: Multi- detector CT performed through the brain without IV contrast. Automatic exposure control utilized. All CT scans at this facility use dose modulation, iterative reconstruction, and/or weight based dosing when appropriate to reduce radiation dose to as low as reasonably achievable. Findings: There is no intracranial hemorrhage, extra-axial fluidcollection, mass effect, midline shift, or hydrocephalus. Patent basal cisterns. MRI is more sensitive for evaluation of acute ischemia and subtle parenchymal abnormalities. IMPRESSION: * No acute int racranial abnormality by CT. Stable exam. Finalized by Pasha Young MD on 01/12/2025 6:08 PM Echo complete W/O contrast Result Date: 01/14/2025 Left Ventricle: Left ventricle appears normal in size. There is mild asymmetric increased wall thickness/hypertrophy. Systolic function is normal with an ejection fraction of 55-60%. The quantitativeEF by 2D Mitchell biplane is 61%. No obvious regional wall motion abnormalities. Unable to assess diastolic function due to atrial fibrillation/flutter. Right Ventricle: Right ventricular size appearsnormal. The right ventricular basal diameter is 36.0 mm. Normal systolic excursion velocity by TDI (>9.5 cm/s). Tricuspid Valve: There is moderate regurgitation. There is no evidence of tricuspid valve stenosis. There is moderate pulmonary hypertension. Mitral Valve: The leaflets are moderately t hickened. There is mild annular calcification. There is moderate regurgitation with a centrally directed jet. There is no evidence of mitral valve stenosis. ASSESSMENT / PLAN: Acute hypoxic resp failure On vent Wean when stable Hypotension - on pressors, wean as tolerated Post op - 01/14/25 - repair of incarcerated inguinal hernia, colon resection, colostomy, orchiectomy A fib DW RN, RT 35 minutes of critical care time provided: [ x] Evaluation and management [ x ] Documentation [ ] Patient and family updates, discussions, meetings [ ] Weaning +/- Extubation [ ] Transfer out of ICU [ x ] Profound instability requiring frequent monitoring and intervention [x] This patient, with a critical illness, requires constant monitoring and titration of care by a Critical Care Quarantine Inspector. Failure to do so may result in further organ system failure, imminent deterioration, or . * Laura Cobian MD - 01/14/2025 4:06 PM EDT Images from the original note were not included. GENERAL SURGERY CONSULT/HISTORY & PHYSICAL Chief Complaint: s/p incarcerated open LIH repair containing perforated sigmoid colon. History of Present Illness: Paul Guerrero is a 74 y.o. male with a hx of Chronic Afib on Eliquis, Nonischemic cardiomyopathy with last LV fx 55-60%, previous CVA. Records indicate that he presented to and OSH on 01/13/25after a fall and a 2 day history of feeling weak and fatigued. He reported injuries to his face andbilateral knees. He noted a long history of a known inguinal hernia but increased swelling to the area for 4-5 days. In the ED he was noted to be in Afib with RVR of 200. He was started on a cardizem gtt. Labs with leukocytosis of 22.7 , CPK 3798 and Lactate 2.4 Creat 1.97. CTH (-) CXR (-). General surgery was asked to eval for a possible incarcerated hernia that was painful and unable to be reduced. US with scrotal edema and bowel to the hernia sac. Cardiology added digoxin for rate control. Overnight he had alow grade temp, rising leukocytosis He was started on IV abx of Ceftriaxone and Flagyl and taken tothe OR. OR findings of an incarcerated LIH with contained sigmoid perforation into the scrotum with devitalized omentum and left testicle. He underwent Laparotomy, open repair of LIH, Omentectomy, left orchiectomy, Tracy's procedure. Tramatic blackwell placement and unable to place blackwell catheter. Post operatively he remained intubated. Norepinephrine gtt started for labile BP. Pt was transferred to our facility for higher level of care. Review of Systems Intubated and sedated Past Medical History: Diagnosis Date Acute renal failure (ARF) occured at time of GI bleed Atrial fibrillation (CMS-HCC) Bluish skin discoloration CHF (congestive heart failure) (CMS-[facility]) 2012 initial EF 15 % // last ECHO 55 % Cholecystitis Contracture of finger joint Patient had an accident on a ladder causing deformity and this eventually developed into a contracture. Patient elected not to have surgery. CVA (cerebral vascular accident) (CMS-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) occured at time of GI bleed Stroke ([facility]) 06/2016 rx with TPA Past Surgical History: Procedure Laterality Date CARDIAC CATHETERIZATION COLONOSCOPY diverticulosis / lg ingunial hernia ESOPHAGOGASTRODUODENOSCOPY severe errosis gastritis and duodenitis TONSILLECTOMY Social History Tobacco Use Smoking Status Never Smokeless Tobacco Never Social History Substance and Sexual Activity Alcohol Use No Social History Substance and Sexual Activity Drug Use No Family Status Relation Name Status Mother Father Sister Alive Sister Alive No partnership data on file Family History Problem Relation Age of Onset No Known Problems Mother Heart attack Father 40 Heart disease Father Heart disease Sister Heart disease Sister No Known Allergies Current Facility-Administered Medications: acetaminophen (TYLENOL EXTRA STRENGTH) tablet 500 mg, 500 mg, oral, Q6H PRN, Brenda Millan APRN-DYLAN alum-mag hydroxide-simeth (MAALOX) 200-200-20 mg/5 mL suspension 30 mL, 30 mL, oral, PCHSPBrenda APRN-DYLAN chlorhexidine (PERIDEX) 0.12 % solution 15 mL, 15 mL, mouth/throat, BID, Travis Agrawal MD magnesium sulfate IVPB 2000 mg/50 mL in iso-osmotic water (40 mg/mL premix), 2,000 mg, intravenous,PRN, Brenda Millan ELEVATOR RUNNER-PRIVATE EQUITY ANALYST magnesium sulfate IVPB 4000 mg/100 mL in iso-osmotic water (40 mg/mL premix), 4,000 mg, intravenous, PRN, Brenda Millan ELEVATOR RUNNER-DYLAN norepinephrine (LEVOPHED) infusion 8 mg/250 mL in dextrose 5% (0.032 mg/mL PMX), 0.01-0.2 mcg/kg/min, intravenous, Continuous, Travis Agrawal MD, Last Rate: 6.2 mL/hr at 01/14/25 1603, 0.04 mcg/kg/minat 01/14/25 1603 ondansetron (PF) (ZOFRAN) injection 4 mg, 4 mg, intravenous, Q4H PRN, Brenda Millan APRN-DYLAN perflutren lipid microspheres (DEFINITY) dilution injection 1.43 mg/10 mL, 2 mL, intravenous, PRN, PAT Blandon potassium chloride (K-TAB,KLOR-CON) CR tablet 30-50 mEq, 30-50 mEq, oral, PRN OR potassium chloride (KAYCIEL) 20 mEq/15 mL solution 30-50 mEq, 30-50 mEq, oral, PRN OR potassium chloride IVPB 10 mEq/100 mL in water (0.1 mEq/mL premix), 10 mEq, intravenous, PRN, Brenda Millan APRN-PRIVATE EQUITY ANALYST propofoL (DIPRIVAN) infusion, 5-50 mcg/kg/min, intravenous, Continuous, Travis Agrawal MD, Last Rate: 17.5 mL/hr at 01/14/25 1535, 35 mcg/kg/min at 01/14/25 1535 sennosides-docusate sodium (SENOKOT-S) 8.6-50 mg 1 tablet, 1 tablet, oral, Q12H PRN, Brenda Millan ELEVATOR RUNNER-PRIVATE EQUITY ANALYST sodium chloride 0.9 % flush 10 mL, 10 mL, intravenous, Once PRN, PAT Blandon Consult PICC nurse - PICC, , , Once AND sodium chloride 0.9 % flush 10 mL, 10 mL, intravenous, Q12H AND sodium chloride 0.9 % flush 10 mL, 10 mL, intravenous, PRN AND sodium chloride 0.9 % flush 20 mL, 20 mL, intravenous, PRN, Brenda Millan ELEVATOR RUNNER-PRIVATE EQUITY ANALYST sodium chloride 0.9 % infusion, 100 mL/hr, intravenous, Continuous, Brenda Millan, ELEVATOR RUNNER-PRIVATE EQUITY ANALYST Vital Signs: Blood pressure 99/63, pulse 92, temperature 36.3 ??C (97.3 ??F), temperature source Oral, resp. rate 18, height 177.8 cm (5' 10 ), SpO2 97%. Respiratory Source: O2 Device: Endotracheal tube Admission Weight: Body mass index is 26.32 kg/m??. Physical Exam General Appearance intubated and sedated , some grimace with painful stimuli HEENT : forehead abrasion. Pupils equal, dysconjugate guaze. Chest: No chest trauma, no crepitus, good air entry, CTA bilat Heart: Irregular rate and rhythm. Nl heart sounds, tachy Abdomen Protuberant, compressible. Lower midline incision well approximated with stable, Left inguinal incision well approximated with amanda, RAAD drain to the LLQ + sanguinous to bloody drainage. Genitalia Penis edematous, ecchymotic, blood at the external meatus. Scrotum erythematous, swollen and indurated, empty left hemiscrotum. Extremities warm to palpate. No obvious deformities , Abrasions to the bilateral knees. No pitting edema Skin no abnormal rashes or pigmentation Back. No trauma or step off's noted on back exam Neuro :Intubated and sedated Labs: Lab Results Component Value Date WBC 13.3 (H) 01/14/2025 HGB 10.5 (L) 01/14/2025 HCT 31.1 (L) 01/14/2025 MCV 94 01/14/2025 PLT 194 01/14/2025 Lab Results Component Value Date GLU 130 (H) 01/14/2025 CALCIUM 8.3 (L) 01/14/2025 K 4.6 01/14/2025 CO2 24 01/14/2025 CL 99 01/14/2025 BUN 42 (H) 01/14/2025 CREATININE 1.40 (H) 01/14/2025 No results found for: AMYLASE No results found for: LIPASE Lab Results Component Value Date ALT 38 01/14/2025 AST 48 (H) 01/14/2025 ALKPHOS 57 01/14/2025 No results found for: TOTALBILI Lab Results Component Value Date INR 2.1 (H) 01/12/2025 INR 1.1 07/18/2016 INR 1.2 06/01/2016 PROTIME 24.7 (H) 01/12/2025 PROTIME 12.7 (H) 07/18/2016 PROTIME 13.4 (H) 06/01/2016 Imaging: X-ray chest 1 view Result Date: 01/14/2025 XR CHEST 1 VW History: Postop. Check lines and tubes One view study. Comparison: 01/13/2025 Impression: * Gastric drainage tube has been placed. The side-port is near the EG junction. For more optimalpositioning please advance 5 cm. ET tube is visualized. The tip terminates just above the aortic knob. This is satisfactory in position. No other concerning change. No evidence of aspiration. No pneumothorax. No large effusion. Finalized by Marry Villareal MD on 01/14/2025 2:20 PM Echo complete W/O contrast Result Date: 01/14/2025 Left Ventricle: Left ventricle appears normal in size. There is mild asymmetric increased wall thickness/hypertrophy. Systolic function is normal with an ejection fraction of 55-60%. The quantitativeEF by 2D Mitchell biplane is 61%. No obvious regional wall motion abnormalities. Unable to assess diastolic function due to atrial fibrillation/flutter. Right Ventricle: Right ventricular size appearsnormal. The right ventricular basal diameter is 36.0 mm. Normal systolic excursion velocity by TDI (>9.5 cm/s). Tricuspid Valve: There is moderate regurgitation. There is no evidence of tricuspid valve stenosis. There is moderate pulmonary hypertension. Mitral Valve: The leaflets are moderately t hickened. There is mild annular calcification. There is moderate regurgitation with a centrally directed jet. There is no evidence of mitral valve stenosis. Problem list: Cardiomyopathy, nonischemic (CMS-HCC) Atrial fibrillation with rapid ventricular response (CMS-HCC) A-fib (CMS-HCC) Acute respiratory failure with hypoxia ([facility]) ELLY (acute kidney injury) Scrotal swelling Colostomy present ([facility]) Fall Traumatic rhabdomyolysis History of CVA (cerebrovascular accident) Hypotension Septic shock ([facility]) Assessment and Plan: Incarcerated LIH with contained sigmoid perforation. S/p Laparotomy , LIH repair, Omentectomy and Orchiectomy. Tracy's procedure, septic shock - IV abx of Ceftriaxone and Flagyl - NPO, OG to LIWS - Monitor RAAD drain outpt - Await return of GI fx - on levophed 2. Traumatic blackwell attempt -Bladder US with 285ml -Urology consult for blackwell placement 3. Afib with RVR - Norepi for BP support -Lopressor for rate control -Hold AC for post op -Cardiology following Prophylaxis EPC Protonix Plan discussed with Dr. Cobian Thank you for allowing me to participate in the care of your patient. Please do not hesitate to contact me with any questions or concerns. I, LAURA COBIAN MD, personally have seen and evaluated the patient and have also reviewed the note above, including the history, exam, and MDM. I have performed the [id number] diagnostic evaluation on this patient. My findings are as follows: patient is intubated and sedated in the ICU. Breathing is clear on the vent. Heart rhythm is irregular with a normal rate. Abdomen is soft and protuberant with surgical incisions draining serosanguinous fluid. Left scrotum has severe edema and induration with erythema. RAAD drain is bloody. Left sided colostomy in place is healthy and pink. I have reviewed the laboratory findings and imaging reports as noted above. I agree with the assessment and plan as written. Septic shock on levophed due to colon perforation. On rocephin and flagyl due to perforated bowel. Continue OGT and bowel rest. Await return of bowel function. Leukocytosis is improving. Monitor hyponatremia. On IVF for acute kidney injury. Management of acute hypoxic respiratory failure per primary service. [facility] [place] [id number] [place] [address] Office: [phone] documented in this encounter Miscellaneous Notes * PT/OT/FLOOR ATTENDANT - KYLE Albarran/Ct - 01/22/2025 1:03 PM EDT Occupational Therapy OT Type of Visit: Discharge from Therapy (patient is scheduled to dc today. DC OT) KYLE Clay/Ct, CBIS * Discharge Planning Note - Josep Perdomo - 01/22/2025 11:14 AM EDT DISCHARGE PLANNING NOTE BLS transport with PTN confirmed via [facility] to [facility] 04.24.25 at 1130 * Discharge Planning Note - Diane Mccarty - 01/22/2025 10:35 AM EDT DISCHARGE PLANNING NOTE Prior Auth approved for admission to : [facility] (P# ; F# ) Approval #[id number] Valid for Dates: 01.22.2025-01.26.2025 * Discharge Planning Note - Shikha Adkins RN - 01/22/2025 9:51 AM EDT Ongoing Assessment for Discharge Needs Reviewed discharge milestones and patient needs related to discharge plan. Current estimated discharge date of Jan 22, 2025 has been reviewed by treatment team. Patient's POC discussed in DTR's with RN. CN met with the patient at the bedside. Patient is POD 8 Laparotomy, LIH repair, Left orchiectomy, omentectomy, and Tracy's procedure. General Surgery following. Patient continues on IV Zosyn and Micafungin. Cardiology signed off. Wound Care following. New Colostomy. Precert pending. CN will continue to follow for needs. Plan for discharge is to [facility]. - Shikha Adkins RN 01/22/25 9:59 AM Prior auth approval received. CN tasked transition center to arrange for transportation to facility. BLS transport with PTN confirmed via [facility] to [facility] 04.24.25 at 1130. CRF and PASSR sent to [facility]. Nurse, Charge, and facility updated. - Shikha Adkins RN 01/22/25 11:25 AM Ongoing Assessment for Discharge Needs Flowsheet Row Most Recent Value Referral To Community Referrals / Resources Provided Denies needs Services Requested Patient expects to be discharged to: [facility] Does the patient wish to have family/friend/caregiver involved in their discharge planning? No, thepatient does not wish to have family/friend/caregiver involved in their discharge planning Discharge Disposition SNF SNF Name [facility] SNF Accepted? Yes Does the patient need discharge transportation arranged? Yes Patient choice offered Yes List Provided Yes [facility] List Provided Alf Facility DC Planning Complete Discharge Milestones Yes * Plan of Care - Luna Porter RN - 01/21/2025 11:25 PM EDT Problem: Pain Goal: Patient goal is pain score less than 4, able to rest, and participant in treatment plan as appropriate Description: INTERVENTIONS: 1. Encourage patient or legal b2b sales representative to report early pain and ask [...] per policy 9. Teach patient or legal b2b sales representative interventions for comforting Outcome: Progressing Note: Evaluation of progress towards goal: Pt reports pain. Continuing scheduled meds and offering PRN pain meds. Will continue to monitor. Problem: Safety Goal: Patient will be injury free during hospitalization Description: INTERVENTIONS: 1. Assess patient's risk for falls and implement fall prevention plan of care per policy 2. Provide and maintain a safe environment 3. Proper use of double Identifiers 4. Medication administration using the 5 rights 5. Hand hygiene 6. Specimens are labeled at the bedside 7. Instruct patient/ patient b2b sales representative about use of safety devices 8. Include patient/ patient b2b sales representative in decisions related to safety Outcome: Progressing Note: Evaluation of progress towards goal: Pt remains free from falls and safety maintained. Will continue to monitor. Problem: Infection Goal: Absence of infection during [...] hygiene technique. 7. Identify and instruct patient/patient b2b sales representative in use of appropriate isolation precautionsfor identified infection/symptoms. 8. Provide and discuss with patient/patient b2b sales representative on educational MDRO sheet. 9. Encourage and monitor nutritional status daily and consult substation design draftsperson if indicated. 10. Implement neutropenic guidelines as needed. Outcome: Progressing Note: Evaluation of progress towards goal: Personal protection equipment, standard precautions, andfrequent hand-washing. Will continue to monitor. - Luna Porter RN 01/21/25 11:25 PM * Plan of Care - Muriel Darden RCP - 01/21/2025 2:53 PM EDT Respiratory Therapy Clinical Practice Guidelines Consult Clinical Practice Guidelines Ordered Consult Assessment: Consult, Oxygen, Broncho-pulmonary hygiene Oxygen Indications: Hypoxemia Broncho-pulmonary Hygiene Indications: Retained secretions or difficulty with clearance Broncho-pulmonary Hygiene Total: 2 Bronchodilator Indications: Bronchospasm/wheezing Bronchodilator Total: 3 Vital Signs Pulse: 74 Heart Rate Source: Pulse Ox Resp: 22 SpO2: 96 % O2 Device: None (Room air) O2 Flow Rate (L/min): 2 L/min Patient Position: Semi-fowlers Respiratory Assessment Assessment Type: Post-treatment Level of Consciousness: Alert Respiratory Pattern: Regular Chest Assessment: Chest expansion symmetrical, Trachea midline Bilateral Breath Sounds: Diminished Patient Reported Home Oxygen Modality Used At Home: None (Room air) Patient Active Problem List Diagnosis Contracture of finger joint Stroke ([facility]) Paroxysmal atrial fibrillation ([facility]) Bluish skin discoloration Diverticulosis of colon Gastritis and duodenitis GI bleed Mesenteric artery stenosis Cerebral infarction ([facility]) Cardiomyopathy, nonischemic ([facility]) Atrial fibrillation with rapid ventricular response ([facility]) A-fib ([facility]) Acute respiratory [place] with [place] ELLY (acute kidney injury) Scrotal swelling Colostomy present ([facility]) Fall Traumatic rhabdomyolysis History of CVA (cerebrovascular accident) Hypotension Septic shock ([facility]) H/O unilateral orchiectomy H/O left inguinal hernia repair S/P partial resection of colon Last Chest XRAY: Reviewed Pulmonary History: Reviewed RT Reassessment Due In: 24 hours Bronchodilator Respiratory Rate Level 3: 20-25 Dyspnea Level 3: Dyspnea on exertion or periodic stated SOB Breath Sounds Level 2: Diminished and/or faint wheezes Respiratory History Level 1: None Oxygen to Keep SpO2 Greater Than Or Equal To 92% Level 1: Room air or baseline O2 ; NIV less than or equal to 40% Peak Flow ([employer] Only) Home Therapy: Not Applicable Patients Current Level & Intervention: 3 Four times daily and Q4 PRN as needed for wheezing Broncho-Pulmonary Hygiene Level of Movement Level 2: Actively changing positions - requires assistance Breath Sounds Level 2: Diminished and/or coarse rhonchi Cough Level 2: Strong, effective and/or frequent Chest X-Ray Level 2: Mild consolidation and/or atelectasis ; No CXR available Sputum Production Level 2: Able to produce small to moderate amount of moderately thick secretions History & Physical Level 2: New onset of bronchitis or mucus plugging or Home use for chronic condition SpO2 to O2 Need Level 2: >92% on room air or NC < 3 lpm Patients Current Level & Intervention: 2 BPH technique per algorithm TID and PRN Problem: Inadequate Airway Clearance Goal: Patient will maintain patent airway Description: INTERVENTIONS 1. Assess and monitor breath sounds, cough and sputum (if present) 2. Monitor respiratory rate and oxygen saturation 3. Collaborate with respiratory therapy to administer medication, oxygen, and suitable airway clearance techniques as ordered 4. Position patient for maximum ventilatory efficiency; elevate head of bed at least 30 degrees if appropriate 5. Provide adequate fluid intake to liquify secretions if appropriate 6. Suction secretions as indicated to maintain patent airway 7. Instruct patient to turn, cough, and deep breathe; encourage incentive spirometer if indicated Outcome: Progressing Note: Evaluation of progress towards goal: stable on room air. Will continue to monitor. * Discharge Planning Note - Shikha Adkins RN - 01/21/2025 12:02 PM EDT Ongoing Assessment for Discharge Needs Reviewed discharge milestones and patient needs related to discharge plan. Current estimated discharge date of Jan 22, 2025 has been reviewed by treatment team. Patient's POC discussed in DTR's with RN. CN met with the patient at the bedside. Patient is POD 7 Laparotomy, LIH repair, Left orchiectomy, omentectomy, and Tracy's procedure. Patient continues onZosyn and Micafungin. Per ID's note yesterday, plan is continue Zosyn until 02/10 and Micafungin until 02/16. New Colostomy. Wound Care following. [facility] and [facility] declined. CN tasked transition center to send referrals to [facility] and [facility]. [facility] accepts and will have bed availability tomorrow. CN tasked transition center to start precert. CN will continue to follow for needs. Plan for discharge is to [facility]. - Shikha Adkins RN 01/21/25 12:11 PM Ongoing Assessment for Discharge Needs Flowsheet Row Most Recent Value Referral To Community Referrals / Resources Provided Denies needs Services Requested Patient expects to be discharged to: [facility] Does the patient wish to have family/friend/caregiver involved in their discharge planning? No, thepatient does not wish to have family/friend/caregiver involved in their discharge planning Discharge Disposition SNF SNF Name [facility] SNF Accepted? Yes Does the patient need discharge transportation arranged? Yes Patient choice offered Yes List Provided Yes [facility]Port List Provided Alf Facility DC Planning Complete Discharge Milestones Yes * Discharge Planning Note - Diane Mccarty - 01/21/2025 11:58 AM EDT DISCHARGE PLANNING NOTE Prior auth submitted to:[employer] [facility] On behalf of :[facility] (P# ; F# ) Ref#[id number] * PT/OT/FLOOR ATTENDANT - Payal Segundo OTR/L - 01/21/2025 11:17 AM EDT Occupational Therapy OT Type of Visit: Patient refusal Reason For Patient Refusal (comment required): (Declined therapy at this time due to nausea and possible discharge today.) * PT/OT/FLOOR ATTENDANT - Yeni Zuleta PTA - 01/21/2025 10:57 AM EDT Physical Therapy PT Type of Visit: Patient refusal (pt up to chair, reporting likely discharge this date and to be with some nausea currently - declines at this time.) Cosigned by Alannah Donald PT at 01/21/2025 12:30 PM EDT Associated attestation - Alannah Donald, PT - 01/21/2025 12:30 PM EDT I have reviewed and agree with this note and education documentation for this visit. * Plan of Care - Reynaldo Velez RN - 01/21/2025 10:52 AM EDT Problem: Pain Goal: Patient goal is pain score less than 4, able to rest, and participant in treatment plan as appropriate Description: INTERVENTIONS: 1. Encourage patient or legal b2b sales representative to report early pain and ask [...] per policy 9. Teach patient or legal b2b sales representative interventions for comforting Outcome: Progressing Note: Evaluation of progress towards goal: Pt able to report pain according to 0/10 pain scale. Medicating patient for pain per orders. Continue to monitor. * Discharge Planning Note - Kumar Almazan - 01/21/2025 10:20 AM EDT DISCHARGE PLANNING NOTE Referral sent to. [facility] [employer] [facility] (P# ; F# ) [facility] (P#: ; F#: ) * Plan of Care - Luna Porter RN - 01/20/2025 11:50 PM EDT Problem: Pain Goal: Patient goal is pain score less than 4, able to rest, and participant in treatment plan as appropriate Description: INTERVENTIONS: 1. Encourage patient or legal b2b sales representative to report early pain and ask [...] per policy 9. Teach patient or legal b2b sales representative interventions for comforting Outcome: Progressing Note: Evaluation of progress towards goal: Pt reports pain. Continuing scheduled meds and offering PRN pain meds. Will continue to monitor. Problem: Safety Goal: Patient will be injury free during hospitalization Description: INTERVENTIONS: 1. Assess patient's risk for falls and implement fall prevention plan of care per policy 2. Provide and maintain a safe environment 3. Proper use of double Identifiers 4. Medication administration using the 5 rights 5. Hand hygiene 6. Specimens are labeled at the bedside 7. Instruct patient/ patient b2b sales representative about use of safety devices 8. Include patient/ patient b2b sales representative in decisions related to safety Outcome: Progressing Note: Evaluation of progress towards goal: Pt remains free from falls and safety maintained. Will continue to monitor. Problem: Discharge Planning Goal: Discharge to post-acute [...] Arrange for needed discharge transportation as appropriate 01/20/2025 [id number] by CHRISTOS Carrasco Outcome: Progressing Note: Evaluation of progress towards goal: [facility]. Pre-certification submitted for approval. Will continue to monitor. 01/20/2025 2317 by CHRISTOS Carrasco Outcome: Progressing Note: Evaluation of progress towards goal: Patient being transferred to [facility] attime of discharge for continuation of care. Referrals in place for pre-certification approval. Willcontinue to monitor. - Luna Porter RN 01/20/25 11:50 PM * Discharge Planning Note - Shikha Adkins RN - 01/20/2025 4:41 PM EDT Ongoing Assessment for Discharge Needs Reviewed discharge milestones and patient needs related to discharge plan. Current estimated discharge date of Jan 20, 2025 has been reviewed by treatment team. Patient's POC discussed in DTR's with RN. CN met with the patient at the bedside. HIRAL tasked transition center to send referrals to [facility] and [facility]. Plan for discharge is to SNF. - Shikha Adkins RN 01/20/25 4:42 PM Ongoing Assessment for Discharge Needs Flowsheet Row Most Recent Value Referral To Community Referrals / Resources Provided Denies needs Services Requested Patient expects to be discharged to: SNF Does the patient wish to have family/friend/caregiver involved in their discharge planning? No, thepatient does not wish to have family/friend/caregiver involved in their discharge planning Discharge Disposition SNF Patient choice offered Yes List Provided Yes [facility]Port List Provided Alf Facility DC Planning Complete Discharge Milestones Yes * Discharge Planning Note - Kumar Almazan - 01/20/2025 3:23 PM EDT DISCHARGE PLANNING NOTE Referral sent to. [facility] (P# ; F# ) [facility] (P# ; F# ) * PT/OT/FLOOR ATTENDANT - WILDA Christensen - 01/20/2025 2:34 PM EDT Occupational Therapy Co-Treatment Discharge Recommendations for Safe Patient Transition OT Discharge Disposition Recommendation: Post acute - moderate OT Post Acute Moderate Rehab Needs: Tolerate 1-2 hrs of therapy 3-5 days/wk Current Impairments Informing Therapy Recommendation: Ambulation status/safety, Fall risk, ADL status, Endurance level Therapy Plan Need for skilled Occupational Therapy to address deficits in ADL independence and functional mobility due to a status decline resulting from current medical status. Past Medical History: [place] Acute renal failure (ARF) occured at time of GI bleed Atrial fibrillation [place] Bluish skin discoloration [place]F (congestive heart failure) [place] initial EF 15 % // last ECHO 55 % Cholecystitis Contracture of finger joint Patient had an accident on a ladder causing deformity and this eventually developed into a contracture. Patient elected not to have surgery. 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 / [facility] / Dr Bruce/ CTA Occult blood in stools abn fit test Peptic ulceration GI bleed Pneumonia Respiratory failure [place] occured at time of GI bleed Stroke [place] 06/2016 rx with TPA Past Surgical History: Procedure Laterality Date CARDIAC CATHETERIZATION COLONOSCOPY diverticulosis / lg ingunial hernia CREATION COLOSTOMY Left 01/14/2025 Performed by Delmar Ramirez MD at [facility] ESOPHAGOGASTRODUODENOSCOPY severe errosis gastritis and duodenitis ORCHIECTOMY Left 01/14/2025 Performed by Delmar Ramirez MD at [facility] REPAIR HERNIA INGUINAL Left 01/14/2025 Performed by Delmar Ramirez MD at [facility] TONSILLECTOMY 6 Clicks: Daily Activity Putting on and taking off regular lower body clothing?: A lot Bathing (including washing, rinsing, drying)?: A lot Toileting, which includes using toilet, bedpan or urinal?: Total Putting on and taking off regular upper body clothing?: A little Taking care of personal grooming such as brushing teeth?: A little Eating meals?: None Scoring Daily Activity Raw Score: 15 [facility] G Code Modifier: CK Assessment Patient Assessment Patient Response to Treatment: Progressing toward goals Mood/Affect: Appropriate for circumstances Rehab Prognosis: Good, With continued OT status post acute discharge Visit RN Communication: Yes Medical Record Reviewed: Yes OT Type of Visit: Co-Treatment Precautions Activity: Early mobility guidelines Equipment: RW Telemetry/Employee Welfare Manager: Yes Pain Assessment Pain Assessment: No/denies pain Pain Score: 0 Pain Intervention(s): Repositioned Response to Interventions: Pain unchanged ADL / IADL Other: Pt denies any ADL needs at this time, reporting all self-care was completed earlier this date. Home Management - IADL Other: Pt denies any ADL needs at this time, reporting all self-care was completed earlier this date. Hearing / Speech / Vision Hearing: Within Functional Limits Speech: Within Functional Limits Current Vision: Wears glasses only for reading Cognition Overall Cognitive Status: Within Functional Limits Orientation Level: Oriented X4 Bed Mobility Supine to Sit: Contact guard assist Transfers Sit to Stand: Contact guard assist, Verbal cues Stand to Sit: Contact guard assist, Verbal cues Bed to Chair: Contact guard assist, Verbal cues Other: Min cues and CG assist provided for safe technique with hand placement and walker managementfor decreased fall risk. Gait Base of Support: Narrow Gait Assistance: Contact guard assist, Visual cues Assistive Device: Rolling walker Gait Distance: 25ft (Pt able to ambulate 25ft demonstrating decreased jessie and forward trunk. Noloss of balance but pt observed to desat down to 88%.) Limiting Factors to Gait: Fatigue, Weakness Balance Balance Evaluation: Exceptions to Functional Limits Sitting Balance: Static: Good Sitting Balance: Dynamic: Good, Fair Standing Balance: Static: Fair Standing Balance: Dynamic: Fair RUE Assessment: (Pt completed seated UE/LE ex x10 reps in all feasible planes to increase strength for safe ADL participation.) LUE Assessment: (Pt completed seated UE/LE ex x10 reps in all feasible planes to increase strength for safe ADL participation.) Activity Tolerance Endurance: Tolerates <30 minutes activity with vital sign changes Pre-Activity SpO2: 93 % Post-Activity SpO2: 88 % Other: Pt able to participate in bed mobility, basic transfers and functional mobility demonstrating increased activity tolerance but O2 desat noted with exertion.l Plan Occupational Therapy Care Plan Occupational Therapy Care Plan (Active) Template: OT - Occupational Therapy Problem: Activity Tolerance Dates: Start: 01/18/25 Disciplines: OT Goal: Tolerate > 30 minutes of activity WITH rest breaks Dates: Start: 01/18/25 Expected End: 01/31/25 Description: Goal Description: Disciplines: OT Outcomes Date/Time User Outcome 01/20/25 9385 KYLE Christensen/Ct Progressing 01/19/25 9172 KYLE Patten/Ct Progressing Goal Note filed on 01/20/251428 by KYLE Christensen/Ct Evaluation of progress towards goal: Pt able to participate in all session activity with no report of increased pain/fatigue. Problem: Bed Mobility Dates: Start: 01/18/25 Disciplines: OT Goal: Patient will perform bed mobility with Stand By Assist Dates: Start: 01/18/25 Expected End: 01/31/25 Description: Goal Description: Disciplines: OT Outcomes Date/Time User Outcome 01/20/25 142 KYLE Christensen/Ct Progressing 01/19/25 1623 Payal Segundo OTR/Ct Progressing Goal Note filed on 01/20/25 142 by KYLE Christensen/Ct Evaluation of progress towards goal: Min cues and CG assist provided for safe technique and guidance of LE's Problem: Dressing LB Dates: Start: 01/18/25 Disciplines: OT Goal: Patient will perform dressing LB with Moderate Assist Dates: Start: 01/18/25 Expected End: 01/31/25 Description: Goal Description: Disciplines: OT Problem: Dressing UB Dates: Start: 01/18/25 Disciplines: OT Goal: Patient will perform dressing UB with Minimum Assist Dates: Start: 01/18/25 Expected End: 01/31/25 Description: Goal Description: Disciplines: OT Problem: Eating Dates: Start: 01/18/25 Disciplines: OT Goal: Patient will perform eating with Set-Up Dates: Start: 01/18/25 Expected End: 01/31/25 Description: Goal Description: Disciplines: OT Problem: Functional Mobility Dates: Start: 01/18/25 Disciplines: OT Goal: Patient will perform functional mobility with Stand By Assist Dates: Start: 01/18/25 Expected End: 01/31/25 Description: Goal Description: Disciplines: OT Outcomes Date/Time User Outcome 01/20/25 142 KYLE Christensen/Ct Progressing 01/19/25 1623 Payal Segundo OTR/Ct Progressing Goal Note filed on 01/20/25 142 by KYLE Christensen/Ct Evaluation of progress towards goal: Pt able to complete 25ft functional mobility with no more thanCG assist provided for increased balance/safety. Problem: Grooming Dates: Start: 01/18/25 Disciplines: OT Goal: Patient will perform grooming with Set-Up Dates: Start: 01/18/25 Expected End: 01/31/25 Description: Goal Description: Disciplines: OT Problem: Sitting Balance Dates: Start: 01/18/25 Disciplines: OT Goal: Improve balance to good Dates: Start: 01/18/25 Expected End: 01/31/25 Description: Static Dynamic Disciplines: OT Outcomes Date/Time User Outcome 01/19/25 1623 Payal Segundo OTR/Ct Progressing Goal Note filed on 01/19/25 1623 by Payal Segundo OTR/Ct Evaluation of progress towards goal: Problem: Standing Balance Dates: Start: 01/18/25 Disciplines: OT Goal: Improve balance to good Dates: Start: 01/18/25 Expected End: 01/31/25 Description: Static Dynamic Disciplines: OT Outcomes Date/Time User Outcome 01/20/25 1429 KYLE Christensen/Ct Progressing 01/19/25 1623 Payal Segundo OTR/Ct Progressing Goal Note filed on 01/20/25 142 by KYLE Christensen/Ct Evaluation of progress towards goal: Pt able to maintain dynamic standing balance during all functional mobility with no more than CG assist provided for increased balance/safety. Problem: Strength Dates: Start: 01/18/25 Disciplines: OT Goal: Improve strength Dates: Start: 01/18/25 Expected End: 01/31/25 Description: B UE strength to 4/5 Disciplines: OT Outcomes Date/Time User Outcome 01/20/25 1429 KYLE Christensen/Ct Progressing 01/19/25 1623 Payal Segundo OTR/Ct Progressing Goal Note filed on 01/20/25 142 by KYLE Christensen/Ct Evaluation of progress towards goal: Pt completed seated UE/LE ex x 10 reps in all planes to increase strength/activity tolerance for increased ADL independence Problem: Transfers Dates: Start: 01/18/25 Disciplines: OT Goal: Patient will perform transfers with Stand By Assist Dates: Start: 01/18/25 Expected End: 01/31/25 Description: Goal Description: Disciplines: OT Outcomes Date/Time User Outcome 01/19/25 162 Payal Segundo OTR/Ct Progressing Goal Note filed on 01/20/25 142 by KYLE Christensen/Ct Evaluation of progress towards goal: Pt provided min cues and CG assist for safe technique with hand/foot placement and walker management for decreased fall risk. Occupational Therapy Care Plan (Resolved) There are no resolved problems. Principal Problem: Acute respiratory failure with hypoxia (CMS-HCC) Active Problems: Paroxysmal atrial fibrillation (CMS-HCC) Cardiomyopathy, nonischemic (CMS-HCC) Atrial fibrillation with rapid ventricular response ([facility]) A-fib ([facility]) ELLY (acute kidney injury) Scrotal swelling Colostomy present ([facility]) Fall Traumatic rhabdomyolysis History of CVA (cerebrovascular accident) Hypotension Septic shock ([facility]) H/O unilateral orchiectomy H/O left inguinal hernia repair S/P partial resection of colon * Plan of Care - WILDA Christensen - 01/20/2025 2:33 PM EDT Problem: Strength Goal: Improve strength Description: B UE strength to 4/5 Outcome: Progressing Note: Evaluation of progress towards goal: Pt completed seated UE/LE ex x 10 reps in all planes to increase strength/activity tolerance for increased ADL independence Problem: Bed Mobility Goal: Patient will perform bed mobility with Stand By Assist Description: Goal Description: Outcome: Progressing Note: Evaluation of progress towards goal: Min cues and CG assist provided for safe technique and guidance of LE's Problem: Standing Balance Goal: Improve balance to good Description: Static Dynamic Outcome: Progressing Note: Evaluation of progress towards goal: Pt able to maintain dynamic standing balance during all functional mobility with no more than CG assist provided for increased balance/safety. Problem: Activity Tolerance Goal: Tolerate > 30 minutes of activity WITH rest breaks Description: Goal Description: Outcome: Progressing Note: Evaluation of progress towards goal: Pt able to participate in all session activity with no report of increased pain/fatigue. Problem: Functional Mobility Goal: Patient will perform functional mobility with Stand By Assist Description: Goal Description: Outcome: Progressing Note: Evaluation of progress towards goal: Pt able to complete 25ft functional mobility with no more than CG assist provided for increased balance/safety. * PT/OT/FLOOR ATTENDANT - Yeni Zuleta PTA - 01/20/2025 2:08 PM EDT Physical Therapy Co-Treatment Discharge Recommendations for Safe Patient Transition PT Discharge Disposition Recommendation: Post acute - moderate PT Post Acute Moderate Rehab Needs: Tolerate 1-2 hrs of therapy 3-5 days/wk Therapy Plan Need for skilled Physical Therapy to address deficits in functional mobility due to a status decline resulting from current medical condition. Past Medical History: Diagnosis [place] admission Acute renal failure (ARF) occured at time of GI bleed Atrial fibrillation [place] Bluish skin discoloration CHF (congestive heart failure) [place] 2012 initial EF 15 % // last ECHO 55 % Cholecystitis Contracture of finger joint Patient had an accident on a ladder causing deformity and this eventually developed into a contracture. Patient elected not to have surgery. 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 / [facility] / Dr Bruce/ CTA Occult blood in stools abn fit test Peptic ulceration GI bleed Pneumonia Respiratory failure [place] occured at time of GI bleed Stroke [place] 06/2016 rx with TPA Past Surgical History: Procedure Laterality Date CARDIAC CATHETERIZATION COLONOSCOPY diverticulosis / lg ingunial hernia CREATION COLOSTOMY Left 01/14/2025 Performed by Delmar Ramirez MD at [facility] ESOPHAGOGASTRODUODENOSCOPY severe errosis gastritis and duodenitis ORCHIECTOMY Left 01/14/2025 Performed by Delmar Ramirez MD at [facility] REPAIR HERNIA INGUINAL Left 01/14/2025 Performed by Delmar Ramirez MD at [facility] TONSILLECTOMY 6 Clicks: Basic Mobility Turning from your back to your side while in a flat bed without using bed rails?: A little Moving from lying on your back to sitting on side of flat bed without using bed rails?: A little Moving to and from bed to a chair (including w/c)?: A little Standing up from a chair using your arms (e.g. w/c or bedside chair)?: A little To walk in hospital room?: A little Climbing 3-5 steps with a railing?: A lot Scoring 6 Clicks: Basic Mobility Raw Score: 17 [facility] G Code Modifier: CK 01/20/25 1400 LE Seated LE seated exercises performed? Yes Ankle pumps 15 Long arc quads 12 Seated marching 12 Hip abduction/adduction 12 Assessment Patient Assessment Patient Response to Treatment: Progressing toward goals, Slow progress, decreased activity tolerance Visit RN Communication: Yes Medical Record Reviewed: Yes PT Type of Visit: Co-Treatment Bed Mobility Supine to Sit: Contact guard assist Other: pt up to chair at end of session, call light in reach and needs Transfers Sit to Stand: Contact guard assist Stand to Sit: Contact guard assist Bed to Chair: Contact guard assist, Verbal cues Gait Base of Support: Narrow Pattern: Decreased jessie, Forward trunk Gait Assistance: Contact guard assist, Verbal cues Assistive Device: Rolling walker Gait Distance: 30ft within room, fatigue and some sob present, recovered with rest and cues for breathing, vitals showing drop in o2 but poor wave form and essentially recovering to low 90's, hr wnl Activity Tolerance Other: tolerating bed mobility, transfers, gait, seated le exs as well as ue exs with guidance fromOT Plan Physical Therapy Care Plan Physical Therapy Care Plan (Active) Template: PT - Physical Therapy Problem: Activity Tolerance Dates: Start: 01/16/25 Disciplines: PT Goal: Tolerate > 30 Minutes of Activity WITHOUT Change in Vitals Dates: Start: 01/16/25 Expected End: 02/05/25 Description: Goal Description: Disciplines: PT Problem: Bed Mobility Dates: Start: 01/16/25 Disciplines: PT Goal: Patient will perform bed mobility Independently Dates: Start: 01/16/25 Expected End: 02/05/25 Description: Goal Description: Disciplines: PT Outcomes Date/Time User Outcome 01/20/25 1405 Yeni Zuleta PTA Progressing 01/20/25 1400 Yeni Zuleta PTA Progressing 01/19/25 1618 Yeni Zuleta PTA Progressing 01/18/25 1200 Yeni Zuleta PTA Progressing Goal Note filed on 01/20/25 1405 by Yeni Zuleta PTA Evaluation of progress towards goal: Problem: Gait Dates: Start: 01/16/25 Disciplines: PT Goal: Patient will perform gait Independently Dates: Start: 01/16/25 Expected End: 02/05/25 Description: With____,____feet Goal Description: Disciplines: PT Outcomes Date/Time User Outcome 01/20/25 1405 Yeni Zuleta PTA Progressing 01/19/25 1618 Yeni Zuleta, SHIFT BOSS Progressing 01/18/25 1200 Yeni Zuleta PTA Not Progressing Goal Note filed on 01/20/25 1405 by Yeni Zuleta PTA Evaluation of progress towards goal: Problem: Sitting Balance Dates: Start: 01/16/25 Disciplines: PT Goal: Improve balance to normal Dates: Start: 01/16/25 Expected End: 02/05/25 Description: Static Dynamic Disciplines: PT Outcomes Date/Time User Outcome 01/20/25 1405 Yeni Zuleta PTA Progressing 01/20/25 1400 Yeni Zuleta PTA Progressing 01/19/25 1618 Yeni Zuleta PTA Progressing 01/18/25 1200 Yeni Zuleta PTA Progressing Goal Note filed on 01/20/25 1405 by Yeni Zuleta PTA Evaluation of progress towards goal: Problem: Standing Balance Dates: Start: 01/16/25 Disciplines: PT Goal: Improve balance to normal Dates: Start: 01/16/25 Expected End: 02/05/25 Description: Static Dynamic Disciplines: PT Outcomes Date/Time User Outcome 01/20/25 1405 Yeni Zuleta PTA Progressing 01/20/25 1400 Yeni Zuleta PTA Progressing 01/19/25 1618 Yeni Zuleta PTA Progressing 01/18/25 1200 Yeni Zuleta PTA Progressing Goal Note filed on 01/20/25 1405 by Yeni Zuleta PTA Evaluation of progress towards goal: Problem: Strength Dates: Start: 01/16/25 Disciplines: PT Goal: Improve strength Dates: Start: 01/16/25 Expected End: 02/05/25 Description: Of extremity/ location: To facilitate: Disciplines: PT Outcomes Date/Time User Outcome 01/20/25 1405 Yeni Zuleta PTA Progressing 01/20/25 1400 Yeni Zuleta PTA Progressing 01/19/25 161Evelyn Zuleta PTA Progressing 01/18/25 1200 Yeni Zuleta PTA Progressing Goal Note filed on 01/20/25 1405 by Yeni Zuleta PTA Evaluation of progress towards goal: Problem: Transfers Dates: Start: 01/16/25 Disciplines: PT Goal: Patient will perform transfers Independently Dates: Start: 01/16/25 Expected End: 02/05/25 Description: Goal Description: Disciplines: PT Outcomes Date/Time User Outcome 01/20/25 1405 Yeni Zuleta PTA Progressing 01/20/25 1400 Yeni Zuleta PTA Progressing 01/19/25 1618 Yeni Zuleta PTA Progressing 01/18/25 1200 Yeni Zuleta PTA Progressing Goal Note filed on 01/20/25 1405 by Yeni Zuleta PTA Evaluation of progress towards goal: Physical Therapy Care Plan (Resolved) There are no resolved problems. Principal Problem: Acute respiratory failure with hypoxia (CMS-HCC) Active Problems: Paroxysmal atrial fibrillation (CMS-HCC) Cardiomyopathy, nonischemic (CMS-HCC) Atrial fibrillation with rapid ventricular response (CMS-HCC) A-fib (CMS-HCC) ELLY (acute kidney injury) Scrotal swelling Colostomy present (CMS-HCC) Fall Traumatic rhabdomyolysis History of CVA (cerebrovascular accident) Hypotension Septic shock (CMS-HCC) H/O unilateral orchiectomy H/O left inguinal hernia repair S/P partial resection of colon Cosigned by Alannah Donald PT at 01/20/2025 4:30 PM EDT Associated attestation - Alannah Donald, PT - 01/20/2025 4:30 PM EDT I have reviewed and agree with this note and education documentation for this visit. * Plan of Care - Reynaldo Velez RN - 01/20/2025 10:52 AM EDT Problem: Pain Goal: Patient goal is pain score less than 4, able to rest, and participant in treatment plan as appropriate Description: INTERVENTIONS: 1. Encourage patient or legal b2b sales representative to report early pain and ask [...] per policy 9. Teach patient or legal b2b sales representative interventions for comforting Outcome: Progressing Note: Evaluation of progress towards goal: Pt able to report pain according to 0/10 pain scale. Medicating patient for pain per orders. Continue to monitor. Problem: Safety Goal: Patient will be injury free during hospitalization Description: INTERVENTIONS: 1. Assess patient's risk for falls and implement fall prevention plan of care per policy 2. Provide and maintain a safe environment 3. Proper use of double Identifiers 4. Medication administration using the 5 rights 5. Hand hygiene 6. Specimens are labeled at the bedside 7. Instruct patient/ patient b2b sales representative about use of safety devices 8. Include patient/ patient b2b sales representative in decisions related to safety Outcome: Progressing Note: Evaluation of progress towards goal: Safety measures initiated/maintained. Pt remains safe from harm/injury/falls. Continue to monitor. Problem: Infection Goal: Absence of infection during [...] hygiene technique. 7. Identify and instruct patient/patient b2b sales representative in use of appropriate isolation precautionsfor identified infection/symptoms. 8. Provide and discuss with patient/patient b2b sales representative on educational MDRO sheet. 9. Encourage and monitor nutritional status daily and consult substation design draftsperson if indicated. 10. Implement neutropenic guidelines as needed. Outcome: Progressing Note: Evaluation of progress towards goal: Patient VS WNL, remains afebrile for shift. Continue to monitor. Problem: Knowledge Deficit Goal: Patient/patient b2b sales representative demonstrates understanding of disease process, treatment plan,medications, and discharge instructions Description: INTERVENTIONS 1. Complete learning assessment and assess knowledge base 2. Provide teaching at level of understanding 3. Provide teaching via preferred learning method(s) Outcome: Progressing Note: Evaluation of progress towards goal: POC discussed with patient. Questions answered PRN. * PT/OT/FLOOR ATTENDANT - Yeni Zuleta, SHIFT BOSS - 01/20/2025 9:08 AM EDT Physical Therapy PT Type of Visit: Medical deferral (pt with elevated heart rate this morning, RN in with meds to address, will check back later as appropriate.) Cosigned by Alannah Donald PT at 01/20/2025 4:30 PM EDT Associated attestation - Alannah Donald PT - 01/20/2025 4:30 PM EDT I have reviewed and agree with this note and education documentation for this visit. * Plan of Care - Luna Porter RN - 01/19/2025 10:31 PM EDT Problem: Pain Goal: Patient goal is pain score less than 4, able to rest, and participant in treatment plan as appropriate Description: INTERVENTIONS: 1. Encourage patient or legal b2b sales representative to report early pain and ask [...] per policy 9. Teach patient or legal b2b sales representative interventions for comforting Outcome: Progressing Note: Evaluation of progress towards goal: Pt reports no pain currently. Will continue to monitor. Problem: Safety Goal: Patient will be injury free during hospitalization Description: INTERVENTIONS: 1. Assess patient's risk for falls and implement fall prevention plan of care per policy 2. Provide and maintain a safe environment 3. Proper use of double Identifiers 4. Medication administration using the 5 rights 5. Hand hygiene 6. Specimens are labeled at the bedside 7. Instruct patient/ patient b2b sales representative about use of safety devices 8. Include patient/ patient b2b sales representative in decisions related to safety Outcome: Progressing Note: Evaluation of progress towards goal: Pt remains free from falls and safety maintained. Will continue to monitor. Problem: Inadequate Airway Clearance Goal: Patient will maintain patent airway Description: INTERVENTIONS 1. Assess and monitor breath sounds, cough and sputum (if present) 2. Monitor respiratory rate and oxygen saturation 3. Collaborate with respiratory therapy to administer medication, oxygen, and suitable airway clearance techniques as ordered 4. Position patient for maximum ventilatory efficiency; elevate head of bed at least 30 degrees if appropriate 5. Provide adequate fluid intake to liquify secretions if appropriate 6. Suction secretions as indicated to maintain patent airway 7. Instruct patient to turn, cough, and deep breathe; encourage incentive spirometer if indicated Outcome: Progressing Note: Evaluation of progress towards goal: Patient on continuous pulse oximetry and telemetry monitoring. Oxygen, per nasal cannula, at one liter per minute, with a current SPO2 of 90%. Will continueto monitor. - Luna Porter RN 01/19/25 10:31 PM * PT/OT/FLOOR ATTENDANT - KYLE Patten/Ct - 01/19/2025 4:25 PM EDT Occupational Therapy Co-Treatment Discharge Recommendations for Safe Patient Transition OT Discharge Disposition Recommendation: Post acute - moderate OT Post Acute Moderate Rehab Needs: Tolerate 1-2 hrs of therapy 3-5 days/wk Current Impairments Informing Therapy Recommendation: Endurance level, ADL status, Ambulation status/safety 01/19/25 1616 UE ROM UE ROM exercises performed? Yes Shoulder shrugs x Shoulder flexion/extension x Shoulder horizontal abduction/adduction x Other forward rows Repetitions 10 Therapeutic Activity Therapeutic activity exercises performed? Yes Seated x Other Instructed on safety with transitional movements for mobility and room access using RW for increased activity tolerance. Rest breaks as needed and cues for breathing techniques. 6 Clicks: Daily Activity Putting on and taking off regular lower body clothing?: A lot Bathing (including washing, rinsing, drying)?: A lot Toileting, which includes using toilet, bedpan or urinal?: Total Putting on and taking off regular upper body clothing?: A lot Taking care of personal grooming such as brushing teeth?: A little Eating meals?: None Scoring Daily Activity Raw Score: 14 [facility] G Code Modifier: CK Past Medical History: [place] Acute renal failure (ARF) occured at time of GI bleed Atrial fibrillation [place] Bluish skin discoloration CHF [place]congestive heart failure) [place] 2012 initial EF 15 % // last ECHO 55 % Cholecystitis Contracture of finger joint Patient had an accident on a ladder causing deformity and this eventually developed into a contracture. Patient elected not to have surgery. 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 / [facility] / Dr Bruce/ CTA Occult blood in stools abn fit test Peptic ulceration GI bleed Pneumonia Respiratory failure [place] occured at time of GI bleed Stroke [place] 06/2016 rx with TPA Past Surgical History: Procedure Laterality Date CARDIAC CATHETERIZATION COLONOSCOPY diverticulosis / lg ingunial hernia CREATION COLOSTOMY Left 01/14/2025 Performed by Delmar Ramirez MD at [facility] ESOPHAGOGASTRODUODENOSCOPY severe errosis gastritis and duodenitis ORCHIECTOMY Left 01/14/2025 Performed by Delmar Ramirez MD at [facility] REPAIR HERNIA INGUINAL Left 01/14/2025 Performed by Delmar Ramirez MD at [facility] TONSILLECTOMY Therapy Plan Need for skilled Occupational Therapy to address deficits in ADL independence and functional mobility due to a status decline resulting from current medical status . OT Treatment/Interventions: ADL retraining, Functional transfer training, UE strengthening/ROM, Endurance training, Balance, Bed mobility OT Frequency: 4-5days/week OT Duration: 14 visits Assessment Patient Assessment Therapy Problem List: Decreased ADL status, Decreased balance, Decreased endurance, Decreased mobility, Decreased high-level ADLs, Decreased self-care trans, Decreased safe judgement during ADL, Decreased UE strength Patient Response to Treatment: Progressing toward goals, Slow progress, decreased activity tolerance Mood/Affect: Appropriate for circumstances Rehab Prognosis: Good, With continued OT status post acute discharge Visit RN Communication: Yes Medical Record Reviewed: Yes OT Type of Visit: Co-Treatment Precautions Activity: Early mobility guidelines Telemetry/Employee Welfare Manager: Yes Oxygen Used: 2L Pain Assessment Pain Assessment: No/denies pain ADL / IADL Other: (Patient continues to be limited by decreased activity tolerance, balance , strength and mobility. No ADL needs at this time, treatment focused on transfers, mobility and activity tolerance/strength) Home Management - IADL Other: (Patient continues to be limited by decreased activity tolerance, balance , strength and mobility. No ADL needs at this time, treatment focused on transfers, mobility and activity tolerance/strength) Bed Mobility Supine to Sit: Min assist Other: Patient up to wheelchair with call light in reach Transfers Sit to Stand: Contact guard assist Stand to Sit: Contact guard assist Bed to Chair: Contact guard assist Other: verbal cues for hand placement safety and RW positioning Gait Gait Assistance: Contact guard assist Assistive Device: Rolling walker Activity Tolerance Endurance: Tolerates <30 minutes activity WITHOUT vital sign changes Other: Tolerated bed mobility, transfers, UE AROM and LE exercises with PT and mobility within in room . Rest breaks required Plan Occupational Therapy Care Plan Occupational Therapy Care Plan (Active) Template: OT - Occupational Therapy Problem: Activity Tolerance Dates: Start: 01/18/25 Disciplines: OT Goal: Tolerate > 30 minutes of activity WITH rest breaks Dates: Start: 01/18/25 Expected End: 01/31/25 Description: Goal Description: Disciplines: OT Outcomes Date/Time User Outcome 01/19/25 1623 Payal Segundo OTR/L Progressing Goal Note filed on 01/19/25 1623 by Payal Segundo OTR/L Evaluation of progress towards goal: Problem: Bed Mobility Dates: Start: 01/18/25 Disciplines: OT Goal: Patient will perform bed mobility with Stand By Assist Dates: Start: 01/18/25 Expected End: 01/31/25 Description: Goal Description: Disciplines: OT Outcomes Date/Time User Outcome 01/19/253 Payal Segundo OTR/L Progressing Goal Note filed on 01/19/25 1623 by Payal Segundo OTR/L Evaluation of progress towards goal: Problem: Dressing LB Dates: Start: 01/18/25 Disciplines: OT Goal: Patient will perform dressing LB with Moderate Assist Dates: Start: 01/18/25 Expected End: 01/31/25 Description: Goal Description: Disciplines: OT Problem: Dressing UB Dates: Start: 01/18/25 Disciplines: OT Goal: Patient will perform dressing UB with Minimum Assist Dates: Start: 01/18/25 Expected End: 01/31/25 Description: Goal Description: Disciplines: OT Problem: Eating Dates: Start: 01/18/25 Disciplines: OT Goal: Patient will perform eating with Set-Up Dates: Start: 01/18/25 Expected End: 01/31/25 Description: Goal Description: Disciplines: OT Problem: Functional Mobility Dates: Start: 01/18/25 Disciplines: OT Goal: Patient will perform functional mobility with Stand By Assist Dates: Start: 01/18/25 Expected End: 01/31/25 Description: Goal Description: Disciplines: OT Outcomes Date/Time User Outcome 01/19/25 1623 Payal Segundo, OTR/L Progressing Goal Note filed on 01/19/25 1623 by Payal Segundo OTR/L Evaluation of progress towards goal: Problem: Grooming Dates: Start: 01/18/25 Disciplines: OT Goal: Patient will perform grooming with Set-Up Dates: Start: 01/18/25 Expected End: 01/31/25 Description: Goal Description: Disciplines: OT Problem: Sitting Balance Dates: Start: 01/18/25 Disciplines: OT Goal: Improve balance to good Dates: Start: 01/18/25 Expected End: 01/31/25 Description: Static Dynamic Disciplines: OT Outcomes Date/Time User Outcome 01/19/25 1623 Payal Segundo OTR/L Progressing Goal Note filed on 01/19/25 1623 by Payal Segundo OTR/L Evaluation of progress towards goal: Problem: Standing Balance Dates: Start: 01/18/25 Disciplines: OT Goal: Improve balance to good Dates: Start: 01/18/25 Expected End: 01/31/25 Description: Static Dynamic Disciplines: OT Outcomes Date/Time User Outcome 01/19/25 1623 Payal Segundo OTR/L Progressing Goal Note filed on 01/19/25 1623 by Payal Segundo OTR/L Evaluation of progress towards goal: Problem: Strength Dates: Start: 01/18/25 Disciplines: OT Goal: Improve strength Dates: Start: 01/18/25 Expected End: 01/31/25 Description: B UE strength to 4/5 Disciplines: OT Outcomes Date/Time User Outcome 01/19/25 1623 Payal Segundo, OTR/L Progressing Goal Note filed on 01/19/25 1623 by Payal Segundo, OTR/L Evaluation of progress towards goal: Problem: Transfers Dates: Start: 01/18/25 Disciplines: OT Goal: Patient will perform transfers with Stand By Assist Dates: Start: 01/18/25 Expected End: 01/31/25 Description: Goal Description: Disciplines: OT Outcomes Date/Time User Outcome 01/19/25 162 WILDA Patten Progressing Goal Note filed on 01/19/251622 by KYLE Patten/Ct Evaluation of progress towards goal: Occupational Therapy Care Plan (Resolved) There are no resolved problems. Principal Problem: Acute respiratory failure with hypoxia ([facility]) Active Problems: Paroxysmal atrial fibrillation ([facility]) Cardiomyopathy, nonischemic ([facility]) Atrial fibrillation with rapid ventricular response ([facility]) [place] ELLY (acute kidney injury) Scrotal swelling Colostomy present ([facility]) Fall Traumatic rhabdomyolysis History of CVA (cerebrovascular accident) Hypotension Septic shock ([facility]) H/O unilateral orchiectomy H/O left inguinal hernia repair S/P partial resection of colon * PT/OT/FLOOR ATTENDANT - Yeni Zuleta, ERICA - 01/19/2025 4:19 PM EDT Physical Therapy Co-Treatment Discharge Recommendations for Safe Patient Transition PT Discharge Disposition Recommendation: Post acute - moderate PT Post Acute Moderate Rehab Needs: Tolerate 1-2 hrs of therapy 3-5 days/wk Therapy Plan Need for skilled Physical Therapy to address deficits in functional mobility due to a status decline resulting from current medical condition. Past Medical History: Diagnosis Date A-fib ([facility]) 01/14/2025 admission Acute renal failure (ARF) occured at time of GI bleed Atrial fibrillation [place] Bluish skin discoloration CHF (congestive heart failure) [place] 2012 initial EF 15 % // last ECHO 55 % Cholecystitis Contracture of finger joint Patient had an accident on a ladder causing deformity and this eventually developed into a contracture. Patient elected not to have surgery. 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) occured at time of GI bleed St[place] rx with TPA Past Surgical History: Procedure Laterality Date CARDIAC CATHETERIZATION COLONOSCOPY diverticulosis / lg ingunial hernia CREATION COLOSTOMY Left 01/14/2025 Performed by Delmar Ramirez MD at [facility] ESOPHAGOGASTRODUODENOSCOPY severe errosis gastritis and duodenitis ORCHIECTOMY Left 01/14/2025 Performed by Delmar Ramirez MD at [facility] REPAIR HERNIA INGUINAL Left 01/14/2025 Performed by Delmar Ramirez MD at [facility] TONSILLECTOMY 6 Clicks: Basic Mobility Turning from your back to your side while in a flat bed without using bed rails?: A little Moving from lying on your back to sitting on side of flat bed without using bed rails?: A little Moving to and from bed to a chair (including w/c)?: A little Standing up from a chair using your arms (e.g. w/c or bedside chair)?: A little To walk in hospital room?: A little Climbing 3-5 steps with a railing?: A lot Scoring 6 Clicks: Basic Mobility Raw Score: 17 [facility] G Code Modifier: CK 01/19/25 1600 LE Seated LE seated exercises performed? Yes Ankle pumps 10 Long arc quads 10 Seated marching 10 Assessment Patient Assessment Patient Response to Treatment: Progressing toward goals, Slow progress, decreased activity tolerance Visit PT Type of Visit: Co-Treatment Pain Assessment Pain Score: 0 Bed Mobility Supine to Sit: Min assist Other: pt up to wheel chair at end of session, call light in reach and needs met, RN aware of pt status Transfers Sit to Stand: Contact guard assist, Verbal cues Stand to Sit: Contact guard assist, Verbal cues Bed to Chair: Contact guard assist, Verbal cues Gait Base of Support: Narrow Pattern: R Decreased foot clearance, L Decreased foot clearance, Decreased jessie Gait Assistance: Contact guard assist, Verbal cues Assistive Device: Rolling walker Gait Distance: 25ft Activity Tolerance Other: tolerating bed mobility, transfers, gait within room, seated le exs while OT addressing ue's, rests as necessary d/t sob, fatigue, weakness Plan Physical Therapy Care Plan Physical Therapy Care Plan (Active) Template: PT - Physical Therapy Problem: Activity Tolerance Dates: Start: 01/16/25 Disciplines: PT Goal: Tolerate > 30 Minutes of Activity WITHOUT Change in Vitals Dates: Start: 01/16/25 Expected End: 02/05/25 Description: Goal Description: Disciplines: PT Problem: Bed Mobility Dates: Start: 01/16/25 Disciplines: PT Goal: Patient will perform bed mobility Independently Dates: Start: 01/16/25 Expected End: 02/05/25 Description: Goal Description: Disciplines: PT Outcomes Date/Time User Outcome 01/19/25Evelyn Zuleta PTA Progressing 01/18/25 1200 Yeni Zuleta PTA Progressing Goal Note filed on 01/19/251617 by Yeni Zuleta PTA Evaluation of progress towards goal: Problem: Gait Dates: Start: 01/16/25 Disciplines: PT Goal: Patient will perform gait Independently Dates: Start: 01/16/25 Expected End: 02/05/25 Description: With____,____feet Goal Description: Disciplines: PT Outcomes Date/Time User Outcome 01/19/25 161Evelyn Zuleta PTA Progressing 01/18/25 1200 Yeni Zuleta PTA Not Progressing Goal Note filed on 01/19/251617 by Yeni Zuleta PTA Evaluation of progress towards goal: Problem: Sitting Balance Dates: Start: 01/16/25 Disciplines: PT Goal: Improve balance to normal Dates: Start: 01/16/25 Expected End: 02/05/25 Description: Static Dynamic Disciplines: PT Outcomes Date/Time User Outcome 01/19/25Evelyn Zuleta PTA Progressing 01/18/25 1200 Yeni Zuleta PTA Progressing Goal Note filed on 01/19/251617 by Yeni Zuleta PTA Evaluation of progress towards goal: Problem: Standing Balance Dates: Start: 01/16/25 Disciplines: PT Goal: Improve balance to normal Dates: Start: 01/16/25 Expected End: 02/05/25 Description: Static Dynamic Disciplines: PT Outcomes Date/Time User Outcome 01/19/25Evelyn Zuleta PTA Progressing 01/18/25 1200 Yeni Zuleta PTA Progressing Goal Note filed on 01/19/25 1618 by Yeni Zuleta PTA Evaluation of progress towards goal: Problem: Strength Dates: Start: 01/16/25 Disciplines: PT Goal: Improve strength Dates: Start: 01/16/25 Expected End: 02/05/25 Description: Of extremity/ location: To facilitate: Disciplines: PT Outcomes Date/Time User Outcome 01/19/251617 Yeni Zuleta PTA Progressing 01/18/25 1200 Yeni Zuleta PTA Progressing Goal Note filed on 01/19/258 by Yeni Zuleta PTA Evaluation of progress towards goal: Problem: Transfers Dates: Start: 01/16/25 Disciplines: PT Goal: Patient will perform transfers Independently Dates: Start: 01/16/25 Expected End: 02/05/25 Description: Goal Description: Disciplines: PT Outcomes Date/Time User Outcome 01/19/251617 Yeni Zuleta PTA Progressing 01/18/25 1200 Yeni Zuleta PTA Progressing Goal Note filed on 01/19/251617 by Yeni Zuleta PTA Evaluation of progress towards goal: Physical Therapy Care Plan (Resolved) There are no resolved problems. Principal Problem: Acute respiratory failure with hypoxia (CMS-HCC) Active Problems: Paroxysmal atrial fibrillation (CMS-HCC) Cardiomyopathy, nonischemic (CMS-HCC) Atrial fibrillation with rapid ventricular response (CMS-HCC) A-fib (CMS-HCC) ELLY (acute kidney injury) Scrotal swelling Colostomy present (CMS-HCC) Fall Traumatic rhabdomyolysis History of CVA (cerebrovascular accident) Hypotension Septic shock (CMS-HCC) H/O unilateral orchiectomy H/O left inguinal hernia repair S/P partial resection of colon Cosigned by Alannah Donald PT at 01/19/2025 4:21 PM EDT Associated attestation - Alannah Donald PT - 01/19/2025 4:21 PM EDT I have reviewed and agree with this note and education documentation for this visit. * Discharge Planning Note - Shikha Adkins RN - 01/19/2025 3:55 PM EDT Ongoing Assessment for Discharge Needs Reviewed discharge milestones and patient needs related to discharge plan. Current estimated discharge date of Jan 20, 2025 has been reviewed by treatment team. Patient's POC discussed in DTR's with RN. CN met with the patient at the bedside. Patient continueson IV Rocephin. Currently on Gastric soft diet. [facility] unable to accept-no available beds. CN provided a new list of SNF. CN will continue to follow for needs. Plan for discharge is to SNF. - Shikha Adkins RN 01/19/25 3:57 PM Ongoing Assessment for Discharge Needs Flowsheet Row Most Recent Value Referral To Community Referrals / Resources Provided Denies needs Services Requested Patient expects to be discharged to: SNF Does the patient wish to have family/friend/caregiver involved in their discharge planning? No, thepatient does not wish to have family/friend/caregiver involved in their discharge planning Discharge Disposition SNF Patient choice offered Yes List Provided Yes [facility] List Provided Alf Facility DC Planning Complete Discharge Milestones Yes * Plan of Care - JARAD Weems - 01/19/2025 2:15 PM EDT Sending supplements TID * Plan of Care - Brittney Knox RN - 01/19/2025 7:21 AM EDT Problem: Pain Goal: Patient goal is pain score less than 4, able to rest, and participant in treatment plan as appropriate Description: INTERVENTIONS: 1. Encourage patient or legal b2b sales representative to report early pain and ask [...] per policy 9. Teach patient or legal b2b sales representative interventions for comforting 01/19/2025718 by CHRISTOS Lugo Outcome: Progressing Note: Evaluation of progress towards goal: Patient given prn pain meds as needed. 01/18/20251829 by CHRISTOS Lugo Outcome: Progressing Note: Evaluation of progress towards goal: Patient given prn pain meds as needed. Problem: Safety Goal: Patient will be injury free during hospitalization Description: INTERVENTIONS: 1. Assess patient's risk for falls and implement fall prevention plan of care per policy 2. Provide and maintain a safe environment 3. Proper use of double Identifiers 4. Medication administration using the 5 rights 5. Hand hygiene 6. Specimens are labeled at the bedside 7. Instruct patient/ patient b2b sales representative about use of safety devices 8. Include patient/ patient b2b sales representative in decisions related to safety 01/19/2025718 by CHRISTOS Lugo Outcome: Progressing Note: Evaluation of progress towards goal: Patient safety maintained, call light in reach. 01/18/20251829 by CHRISTOS Lugo Outcome: Progressing Note: Evaluation of progress towards goal: Patient safety maintained, call light in reach. Problem: Infection Goal: Absence of infection during [...] hygiene technique. 7. Identify and instruct patient/patient b2b sales representative in use of appropriate isolation precautionsfor identified infection/symptoms. 8. Provide and discuss with patient/patient b2b sales representative on educational MDRO sheet. 9. Encourage and monitor nutritional status daily and consult substation design draftsperson if indicated. 10. Implement neutropenic guidelines as needed. 01/19/2025718 by CHRISTOS Lugo Outcome: Progressing Note: Evaluation of progress towards goal: patient remains free from infection. 01/18/20251829 by CHRISTOS Lugo Outcome: Progressing Note: Evaluation of progress towards goal: patient remains on antibiotics for infection. Problem: Knowledge Deficit Goal: Patient/patient b2b sales representative demonstrates understanding of disease process, treatment plan,medications, and discharge instructions Description: INTERVENTIONS 1. Complete learning assessment and assess knowledge base 2. Provide teaching at level of understanding 3. Provide teaching via preferred learning method(s) 01/19/2025718 by CHRISTOS Lugo Outcome: Progressing Note: Evaluation of progress towards goal: plan of care reviewed with patient. 01/18/20251829 by CHRISTOS Lugo Outcome: Progressing Note: Evaluation of progress towards goal: plan of care reviewed with patient. Problem: Discharge Planning Goal: Discharge to post-acute [...] Arrange for needed discharge transportation as appropriate 01/19/2025718 by CHRISTOS Lugo Outcome: Progressing Note: Evaluation of progress towards goal: Patient will receive discharge paperwork, medications and follow up upon discharge. 01/18/20251829 by CHRISTOS Lugo Outcome: Progressing Note: Evaluation of progress towards goal: Patient will receive discharge paperwork, medications and follow up upon discharge. Problem: Moderate - High Risk Fall Score Description: Blue Fall Score of =/> 25 or indicated by [facility] Assessment Goal: Patient should be free from fall Description: Interventions: 1. [place] to environment 2. Hourly rounds addressing the [...] non-skid footwear 11. Teach patient and patient b2b sales representative to maintain environment for safety and [...] (cane, walker) within reach 19. Request patient b2b sales representative bring adaptive equipment/mobility aids from home or obtain and provide as needed 20. Consult pharmacy regarding effects of med's affecting mobility, cognition, and alternatives 21. Obtain physician order for PT if risk factors associated with mobility are present 22. Obtain physician order for OT as appropriate 23. Utilize diversional activities 24. Educate patient and patient b2b sales representative how to maintain a safe environment during visitationtimes (notify nurse prior to leaving bedside) 25. Consider appropriateness of medical or non-hospital medical assistant 26. Set up voiding schedule as appropriate (every 2 hours) 01/19/2025718 by CHRISTOS Lugo Outcome: Progressing Note: Evaluation of progress towards goal: patient remains free from falls. 01/18/20251829 by CHRISTOS Lugo Outcome: Progressing Note: Evaluation of progress towards goal: patient remains free from falls. Problem: Potential for Compromised Skin Integrity Goal: [...] and initiate plans and interventions as needed 01/19/2025718 by CHRISTOS Lugo Outcome: Progressing Note: Evaluation of progress towards goal: Patient will reposition frequently to promote good skin integrity. 01/18/20251829 by CHRISTOS Lugo Outcome: Progressing Note: Evaluation of progress towards goal: Patient will be repositioned frequently to promote good skin integrity. Goal: Patient's nutritional intake is adequate Description: [...] supplement as ordered 13. Collaborate with clinical substation design draftsperson 14. Include patient/ patient's b2b sales representative in decisions related to nutrition 01/19/2025718 by CHRISTOS Lugo Outcome: Progressing Note: Evaluation of progress towards goal: Patient tolerating diet 01/18/20251829 by CHRISTOS Lugo Outcome: Progressing Note: Evaluation of progress towards goal: Patient tolerating diet Problem: Urinary Incontinence Goal: Perineal skin integrity is maintained or improved Description: INTERVENTIONS 1. Assess genitourinary system, perineal skin, labs (urinalysis), and history of incontinence to include past management, aggravating, and alleviating factors 2. Keep skin clean and dry 3. Apply skin protectant 4. Develop skin care regimen 5. Provide privacy when changing patients incontinence device to maintain their dignity 6. Consider placing an indwelling catheter 7. Collaborate with interdisciplinary team and initiate plans and interventions as needed 01/19/2025718 by CHRISTOS Lugo Outcome: Progressing Note: Evaluation of progress towards goal: Perineal skin integrity maintained 01/18/20251829 by CHRISTOS Lugo Outcome: Progressing Note: Evaluation of progress towards goal: Perineal skin integrity maintained Problem: Inadequate Airway Clearance Goal: Patient will maintain patent airway Description: INTERVENTIONS 1. Assess and monitor breath sounds, cough and sputum (if present) 2. Monitor respiratory rate and oxygen saturation 3. Collaborate with respiratory therapy to administer medication, oxygen, and suitable airway clearance techniques as ordered 4. Position patient for maximum ventilatory efficiency; elevate head of bed at least 30 degrees if appropriate 5. Provide adequate fluid intake to liquify secretions if appropriate 6. Suction secretions as indicated to maintain patent airway 7. Instruct patient to turn, cough, and deep breathe; encourage incentive spirometer if indicated 01/19/2025 0719 by CHRISTOS Lugo Outcome: Progressing Note: Evaluation of progress towards goal: Patient maintains patent airway 01/18/2025 1830 by CHRISTOS Lugo Outcome: Progressing Note: Evaluation of progress towards goal: Patient maintains patent airway * Plan of Care - Jess Velasquez - 01/19/2025 6:40 AM EDT Problem: Pain Goal: Patient goal is pain score less than 4, able to rest, and participant in treatment plan as appropriate Description: INTERVENTIONS: 1. Encourage patient or legal b2b sales representative to report early pain and ask [...] per policy 9. Teach patient or legal b2b sales representative interventions for comforting Outcome: Progressing Note: Evaluation of progress towards goal: Patient denies pain or discomfort at this time. Patient does not exhibit any signs or symptoms of pain at this time Problem: Safety Goal: Patient will be injury free during hospitalization Description: INTERVENTIONS: 1. Assess patient's risk for falls and implement fall prevention plan of care per policy 2. Provide and maintain a safe environment 3. Proper use of double Identifiers 4. Medication administration using the 5 rights 5. Hand hygiene 6. Specimens are labeled at the bedside 7. Instruct patient/ patient b2b sales representative about use of safety devices 8. Include patient/ patient b2b sales representative in decisions related to safety Outcome: Progressing Note: Evaluation of progress towards goal: Patient is aware of safety interventions for falls. Bed alarms and brakes are active. Chair brakes are active. Patient has been free from falls. Problem: Infection Goal: Absence of infection during [...] hygiene technique. 7. Identify and instruct patient/patient b2b sales representative in use of appropriate isolation precautionsfor identified infection/symptoms. 8. Provide and discuss with patient/patient b2b sales representative on educational MDRO sheet. 9. Encourage and monitor nutritional status daily and consult substation design draftsperson if indicated. 10. Implement neutropenic guidelines as needed. Outcome: Progressing Note: Evaluation of progress towards goal: Patient is being monitored and treated per physician orders. Problem: Knowledge Deficit Goal: Patient/patient b2b sales representative demonstrates understanding of disease process, treatment plan,medications, and discharge instructions Description: INTERVENTIONS 1. Complete learning assessment and assess knowledge base 2. Provide teaching at level of understanding 3. Provide teaching via preferred learning method(s) Outcome: Progressing Note: Evaluation of progress towards goal: Patient has been educated on disease process and treatment plan. Questions have been asked and discussed to patient's satisfaction. Patient verbalized understanding of conversation. Problem: Discharge Planning Goal: Discharge to post-acute [...] Progressing Note: Evaluation of progress towards goal: Discharge planning is ongoing at this time. Problem: Moderate - High Risk Fall Score Description: Blue Fall Score of =/> 25 or indicated by [facility] Assessment Goal: Patient should be free from fall Description: Interventions: 1. [place] to environment 2. Hourly rounds addressing the [...] non-skid footwear 11. Teach patient and patient b2b sales representative to maintain environment for safety and [...] (cane, walker) within reach 19. Request patient b2b sales representative bring adaptive equipment/mobility aids from home or obtain and provide as needed 20. Consult pharmacy regarding effects of med's affecting mobility, cognition, and alternatives 21. Obtain physician order for PT if risk factors associated with mobility are present 22. Obtain physician order for OT as appropriate 23. Utilize diversional activities 24. Educate patient and patient b2b sales representative how to maintain a safe environment during visitationtimes (notify nurse prior to leaving bedside) 25. Consider appropriateness of medical or non-hospital medical assistant 26. Set up voiding schedule as appropriate (every 2 hours) Outcome: Progressing Note: Evaluation of progress towards goal: Patient is aware of safety interventions for falls. Bed alarms and brakes are active. Chair brakes are active. Patient has been free from falls. * Plan of Care - Brittney Knox RN - 01/18/2025 6:40 PM EDT Problem: Pain Goal: Patient goal is pain score less than 4, able to rest, and participant in treatment plan as appropriate Description: INTERVENTIONS: 1. Encourage patient or legal b2b sales representative to report early pain and ask [...] per policy 9. Teach patient or legal b2b sales representative interventions for comforting Outcome: Progressing Note: Evaluation of progress towards goal: Patient given prn pain meds as needed. Problem: Safety Goal: Patient will be injury free during hospitalization Description: INTERVENTIONS: 1. Assess patient's risk for falls and implement fall prevention plan of care per policy 2. Provide and maintain a safe environment 3. Proper use of double Identifiers 4. Medication administration using the 5 rights 5. Hand hygiene 6. Specimens are labeled at the bedside 7. Instruct patient/ patient b2b sales representative about use of safety devices 8. Include patient/ patient b2b sales representative in decisions related to safety Outcome: Progressing Note: Evaluation of progress towards goal: Patient safety maintained, call light in reach. Problem: Infection Goal: Absence of infection during [...] hygiene technique. 7. Identify and instruct patient/patient b2b sales representative in use of appropriate isolation precautionsfor identified infection/symptoms. 8. Provide and discuss with patient/patient b2b sales representative on educational MDRO sheet. 9. Encourage and monitor nutritional status daily and consult substation design draftsperson if indicated. 10. Implement neutropenic guidelines as needed. Outcome: Progressing Note: Evaluation of progress towards goal: patient remains on antibiotics for infection. Problem: Knowledge Deficit Goal: Patient/patient b2b sales representative demonstrates understanding of disease process, treatment plan,medications, and discharge instructions Description: INTERVENTIONS 1. Complete learning assessment and assess knowledge base 2. Provide teaching at level of understanding 3. Provide teaching via preferred learning method(s) Outcome: Progressing Note: Evaluation of progress towards goal: plan of care reviewed with patient. Problem: Discharge Planning Goal: Discharge to post-acute [...] Progressing Note: Evaluation of progress towards goal: Patient will receive discharge paperwork, medications and follow up upon discharge. Problem: Moderate - High Risk Fall Score Description: Blue Fall Score of =/> 25 or indicated by [facility] Assessment Goal: Patient should be free from fall Description: Interventions: 1. [place] to environment 2. Hourly rounds addressing the [...] non-skid footwear 11. Teach patient and patient b2b sales representative to maintain environment for safety and [...] (cane, walker) within reach 19. Request patient b2b sales representative bring adaptive equipment/mobility aids from home or obtain and provide as needed 20. Consult pharmacy regarding effects of med's affecting mobility, cognition, and alternatives 21. Obtain physician order for PT if risk factors associated with mobility are present 22. Obtain physician order for OT as appropriate 23. Utilize diversional activities 24. Educate patient and patient b2b sales representative how to maintain a safe environment during visitationtimes (notify nurse prior to leaving bedside) 25. Consider appropriateness of medical or non-hospital medical assistant 26. Set up voiding schedule as appropriate (every 2 hours) Outcome: Progressing Note: Evaluation of progress towards goal: patient remains free from falls. Problem: Potential for Compromised Skin Integrity Goal: [...] Progressing Note: Evaluation of progress towards goal: Patient will be repositioned frequently to promote good skin integrity. Goal: Patient's nutritional intake is adequate Description: [...] supplement as ordered 13. Collaborate with clinical substation design draftsperson 14. Include patient/ patient's b2b sales representative in decisions related to nutrition Outcome: Progressing Note: Evaluation of progress towards goal: Patient tolerating diet Problem: Urinary Incontinence Goal: Perineal skin integrity is maintained or improved Description: INTERVENTIONS 1. Assess genitourinary system, perineal skin, labs (urinalysis), and history of incontinence to include past management, aggravating, and alleviating factors 2. Keep skin clean and dry 3. Apply skin protectant 4. Develop skin care regimen 5. Provide privacy when changing patients incontinence device to maintain their dignity 6. Consider placing an indwelling catheter 7. Collaborate with interdisciplinary team and initiate plans and interventions as needed Outcome: Progressing Note: Evaluation of progress towards goal: Perineal skin integrity maintained Problem: Inadequate Airway Clearance Goal: Patient will maintain patent airway Description: INTERVENTIONS 1. Assess and monitor breath sounds, cough and sputum (if present) 2. Monitor respiratory rate and oxygen saturation 3. Collaborate with respiratory therapy to administer medication, oxygen, and suitable airway clearance techniques as ordered 4. Position patient for maximum ventilatory efficiency; elevate head of bed at least 30 degrees if appropriate 5. Provide adequate fluid intake to liquify secretions if appropriate 6. Suction secretions as indicated to maintain patent airway 7. Instruct patient to turn, cough, and deep breathe; encourage incentive spirometer if indicated Outcome: Progressing Note: Evaluation of progress towards goal: Patient maintains patent airway * Query Response - Javad Horvath MD - 01/18/2025 5:44 PM EDT Query Response Note CDI QUERY TEXT: Present On Admission [id number] Disclaimer: By submitting this query, we are merely seeking further clarification of documentation to accurately reflect all conditions that you are monitoring, evaluating, treating or that extend the hospitalization or utilize additional resources of care. Please utilize your independent clinical judgment when addressing the question(s) below. It is unclear whether sepsis was present on admission. Your help is needed. Please clarify if sepsis is current diagnosis and/or present on admission, if able, such as: - Yes, the condition is present on admission at the time of the [facility] - No, the condition is not present on admission and developed during the inpatient stay - Other, please specify: Please document any of the above specifications within the progress notes and/or discharge summary or as response to this query. The Clinical Documentation Improvement (CDI) staff are working remotely. If you have any questions or concerns regarding this query, please feel free to call or send [employer] e-mail. Thank you, Shannon SWAIN, RN Clinical Ship Joiner Clinical Documentation Integrity Email: [email or web address] The patient's Clinical Indicators include: 01/14 H&P documents: ASSESSMENT & PLAN: Sepsis suspected, no-not clinically evident at thistime. 01/14 Consult note documents: Problem list: Septic shock ([facility]) Assessment and Plan: Tracy's procedure, septic shock - IV abx of Ceftriaxone and Flagyl - NPO, OGto LIWS Septic shock on levophed due to colon perforation. CDI RESPONSE TEXT: Sepsis Query created by: Shannon Mcgarry on 01/18/2025 12:01 PM Electronically signed by: Javad Horvath MD 01/18/2025 5:42 PM * Discharge Planning Note - Shikha Adkins RN - 01/18/2025 3:43 PM EDT Ongoing Assessment for Discharge Needs Reviewed discharge milestones and patient needs related to discharge plan. Current estimated discharge date of Jan 18, 2025 has been reviewed by treatment team. Patient's POC discussed in DTR's with RN. Patient off Cardene gttp. Continues on Hep gttp, IV Flagyl, and Rocephin. Calender Tender tasked transition center to send referral to [facility] over the weekend. CN contacted facility regarding bed availability via [facility]-response pending. CN will continue to follow for needs. Plan for discharge is to SNF. - Shikha Adkins RN 01/18/25 3:46 PM Ongoing Assessment for Discharge Needs Flowsheet Row Most Recent Value Referral To Community Referrals / Resources Provided Denies needs Services Requested Patient expects to be discharged to: SNF Does the patient wish to have family/friend/caregiver involved in their discharge planning? No, thepatient does not wish to have family/friend/caregiver involved in their discharge planning Discharge Disposition SNF DC Planning Complete Discharge Milestones Yes * PT/OT/FLOOR ATTENDANT - Yeni Song, SHIFT BOSS - 01/18/2025 12:01 PM EDT Physical Therapy Treatment Discharge Recommendations for Safe Patient Transition PT Discharge Disposition Recommendation: Post acute - moderate PT Post Acute Moderate Rehab Needs: Tolerate 1-2 hrs of therapy 3-5 days/wk Therapy Plan Need for skilled Physical Therapy to address deficits in functional mobility due to a status decline resulting from current medical condition. Past Medical History: [place]25 admission Acute renal failure (ARF) occured at time of GI bleed Atrial fibrillation [place] Bluish skin discoloration CHF [place]estive heart [place]) [place] 2012 initial EF 15 % // last ECHO 55 % Cholecystitis Contracture of finger joint Patient had an accident on a ladder causing deformity and this eventually developed into a contracture. Patient elected not to have surgery. 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 / [facility] / Dr Bruce/ CTA Occult blood in stools abn fit test Peptic ulceration GI bleed Pneumonia Respiratory failure [place] occured at time of GI bleed Stroke [place] 06/2016 rx with TPA Past Surgical History: Procedure Laterality Date CARDIAC CATHETERIZATION COLONOSCOPY diverticulosis / lg ingunial hernia CREATION COLOSTOMY Left 01/14/2025 Performed by Delmar Ramirez MD at [facility] ESOPHAGOGASTRODUODENOSCOPY severe errosis gastritis and duodenitis ORCHIECTOMY Left 01/14/2025 Performed by Delmar Ramirez MD at [facility] REPAIR HERNIA INGUINAL Left 01/14/2025 Performed by Delmar Ramirez MD at [facility] TONSILLECTOMY 6 Clicks: Basic Mobility Turning from your back to your side while in a flat bed without using bed rails?: A little Moving from lying on your back to sitting on side of flat bed without using bed rails?: A little Moving to and from bed to a chair (including w/c)?: A lot Standing up from a chair using your arms (e.g. w/c or bedside chair)?: A little To walk in hospital room?: A lot Climbing 3-5 steps with a railing?: Total Scoring 6 Clicks: Basic Mobility Raw Score: 14 CMS G Code Modifier: CK 01/18/25 1200 LE Seated LE seated exercises performed? Yes Ankle pumps 10 Long arc quads 7 Seated marching 7 Hip abduction/adduction 10 with pillow Assessment Patient Assessment Patient Response to Treatment: Progressing toward goals, Slow progress, decreased activity tolerance Visit RN Communication: Yes Medical Record Reviewed: Yes PT Type of Visit: Treatment Pain Assessment Pain Assessment: (does not formally rate, did not appear to be in discomfort) Bed Mobility Other: not assessed, pt up to chair with assist from OT just prior to arrival, remains in chair at exit, call light in reach and needs met, RN within room Transfers Sit to Stand: Contact guard assist, Verbal cues Stand to Sit: Contact guard assist, Verbal cues Gait Gait Distance: deferred, pt with weakness in standing and fatigues easily, did attempt some marching in place at chair side with quick fatigue and the need to return to sitting, vitals wnl throughouthowever pt with c/o sob Activity Tolerance Other: tolerating transfers bed to chair with assist of OT just prior to arrival, up to chair whereseated exs completed with rests as necessary, sit to stand at chair side with marching in place - fatigue and sob present Plan Physical Therapy Care Plan Physical Therapy Care Plan (Active) Template: PT - Physical Therapy Problem: Activity Tolerance Dates: Start: 01/16/25 Disciplines: PT Goal: Tolerate > 30 Minutes of Activity WITHOUT Change in Vitals Dates: Start: 01/16/25 Expected End: 02/05/25 Description: Goal Description: Disciplines: PT Problem: Bed Mobility Dates: Start: 01/16/25 Disciplines: PT Goal: Patient will perform bed mobility Independently Dates: Start: 01/16/25 Expected End: 02/05/25 Description: Goal Description: Disciplines: PT Outcomes Date/Time User Outcome 01/18/25 1200 Yeni Zuleta PTA Progressing Goal Note filed on 01/18/25 1200 by Yeni Zuleta PTA Evaluation of progress towards goal: Problem: Gait Dates: Start: 01/16/25 Disciplines: PT Goal: Patient will perform gait Independently Dates: Start: 01/16/25 Expected End: 02/05/25 Description: With____,____feet Goal Description: Disciplines: PT Outcomes Date/Time User Outcome 01/18/25 1200 Yeni Zuleta PTA Not Progressing Goal Note filed on 01/18/25 1200 by Yeni Zuleta PTA Evaluation of progress towards goal: Problem: Sitting Balance Dates: Start: 01/16/25 Disciplines: PT Goal: Improve balance to normal Dates: Start: 01/16/25 Expected End: 02/05/25 Description: Static Dynamic Disciplines: PT Outcomes Date/Time User Outcome 01/18/25 1200 Yeni Zuleta PTA Progressing Goal Note filed on 01/18/25 1200 by Yeni Zuleta PTA Evaluation of progress towards goal: Problem: Standing Balance Dates: Start: 01/16/25 Disciplines: PT Goal: Improve balance to normal Dates: Start: 01/16/25 Expected End: 02/05/25 Description: Static Dynamic Disciplines: PT Outcomes Date/Time User Outcome 01/18/25 1200 Yeni Zuleta PTA Progressing Goal Note filed on 01/18/25 1200 by Yeni Zuleta PTA Evaluation of progress towards goal: Problem: Strength Dates: Start: 01/16/25 Disciplines: PT Goal: Improve strength Dates: Start: 01/16/25 Expected End: 02/05/25 Description: Of extremity/ location: To facilitate: Disciplines: PT Outcomes Date/Time User Outcome 01/18/25 Vasquez Zuleta PTA Progressing Goal Note filed on 01/18/25 1200 by Yeni Zuleta PTA Evaluation of progress towards goal: Problem: Transfers Dates: Start: 01/16/25 Disciplines: PT Goal: Patient will perform transfers Independently Dates: Start: 01/16/25 Expected End: 02/05/25 Description: Goal Description: Disciplines: PT Outcomes Date/Time User Outcome 01/18/25 Vasquez Zuleta PTA Progressing Goal Note filed on 01/18/25 1200 by Yeni Zuleta PTA Evaluation of progress towards goal: Physical Therapy Care Plan (Resolved) There are no resolved problems. Principal Problem: Acute respiratory failure with hypoxia (CMS-HCC) Active Problems: Paroxysmal atrial fibrillation ([facility]) Cardiomyopathy, nonischemic (CMS-HCC) Atrial fibrillation with rapid ventricular response (CMS-HCC) A-fib (CMS-[facility]) ELLY (acute kidney injury) Scrotal swelling Colostomy present ([facility]) Fall Traumatic rhabdomyolysis History of CVA (cerebrovascular accident) Hypotension Septic shock (CMS-[facility]) H/O unilateral orchiectomy H/O left inguinal hernia repair S/P partial resection of colon Cosigned by Alannah Donald, PT at 01/18/2025 4:26 PM EDT Associated attestation - Alannah Donald, PT - 01/18/2025 4:26 PM EDT I have reviewed and agree with this note and education documentation for this visit. * PT/OT/FLOOR ATTENDANT - KYLE Patten/Ct - 01/18/2025 11:39 AM EDT Occupational Therapy Evaluation Discharge Recommendations for Safe Patient Transition OT Discharge Disposition Recommendation: Post acute - moderate OT Post Acute Moderate Rehab Needs: Tolerate 1-2 hrs of therapy 3-5 days/wk, Subacute or chronic functional impairment Current Impairments Informing Therapy Recommendation: ADL status, Endurance level, Ambulation status/safety, Fall risk Cmm Inspector Support for-: ADL Deficits Patient is a 74 year old male that presented to outside hospital after fall at home 01/12/2025. Patient is s/p hernia repair, orchiectomy and creation colostomy 01/14/2025. Patient intubated at post op and transferred to [facility] for further management. 6 Clicks: Daily Activity Putting on and taking off regular lower body clothing?: A lot Bathing (including washing, rinsing, drying)?: A lot Toileting, which includes using toilet, bedpan or urinal?: Total Putting on and taking off regular upper body clothing?: A lot Taking care of personal grooming such as brushing teeth?: A little Eating meals?: A little Scoring Daily Activity Raw Score: 13 [facility] G Code Modifier: CL Past Medical History: [place] Acute renal failure (ARF) occured at time of GI bleed Atrial fibrillation [place] Bluish skin discoloration [place]congestive heart failure) [place] 2012 initial EF 15 % // last ECHO 55 % Cholecystitis Contracture of finger joint Patient had an accident on a ladder causing deformity and this eventually developed into a contracture. Patient elected not to have surgery. 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 / [facility] / Dr Bruce/ CTA Occult blood in stools abn fit test Peptic ulceration GI bleed Pneumonia Respiratory failure [place] occured at time of GI bleed Stroke [place] 06/2016 rx with TPA Past Surgical History: Procedure Laterality Date CARDIAC CATHETERIZATION COLONOSCOPY diverticulosis / lg ingunial hernia CREATION COLOSTOMY Left 01/14/2025 Performed by Delmar Ramirez MD at [facility] ESOPHAGOGASTRODUODENOSCOPY severe errosis gastritis and duodenitis ORCHIECTOMY Left 01/14/2025 Performed by Delmar Ramirez MD at [facility] REPAIR HERNIA INGUINAL Left 01/14/2025 Performed by Delmar Ramirez MD at [facility] TONSILLECTOMY Therapy Plan Need for skilled Occupational Therapy to address deficits in ADL independence and functional mobility due to a status decline resulting from current medical status. OT Treatment/Interventions: ADL retraining, Functional transfer training, UE strengthening/ROM, Endurance training, Balance, Bed mobility OT Frequency: 4-5days/week OT Duration: 14 visits Assessment Patient Assessment Therapy Problem List: Decreased ADL status, Decreased balance, Decreased endurance, Decreased mobility, Decreased high-level ADLs, Decreased self-care trans, Decreased safe judgement during ADL, Decreased UE strength Patient Response to Treatment: Tolerated evaluation without adverse reaction Mood/Affect: Appropriate for circumstances Rehab Prognosis: Good, With continued OT status post acute discharge Visit RN Communication: Yes Medical Record Reviewed: Yes OT Type of Visit: Evaluation Precautions Activity: early mobility guidelines Telemetry/Employee Welfare Manager: Yes Oxygen Used: 8L O2 Pain Assessment Pain Assessment: No/denies pain Home Living Type of Home: House Home Layout: Two level Stairs to Enter: 3 Hand Rails: Bilateral Stairs in Home: Flight up stairs (Does not access, has a renter upstairs) Bathroom Shower/Tub: Walk-in shower Bathroom Toilet: Standard Bathroom Equipment: Grab bars in shower, Shower chair Bathroom Accessibility: Accessible via walker Home Equipment: Rolling walker, Cane, Wheelchair-manual (Patient denied use of equipment use prior to admission) Prior Function Lives With: Alone Level of Mobility: Independent with ADLs and functional transfers or gait Homemaking Assistance: Independent 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 Home Management - IADL Other: Patient limited by decreased activity tolerance, balance, strength and overall mobility thatis requiring increased level of assist for ADls. Hearing / Speech / Vision Hearing: Within Functional Limits Speech: Within Functional Limits Current Vision: Wears glasses only for reading Cognition Overall Cognitive Status: Within Functional Limits Sensation Overall Sensation Status: Within Functional Limits Bed Mobility Supine to Sit: Min assist Other: Up to chair at end of session with PT initiating treatment session. Transfers Sit to Stand: Contact guard assist Stand to Sit: Contact guard assist Bed to Chair: Min assist (Assist for line management) Other: Patient required verbal cues for hand placement safety with RW use Gait Gait Assistance: Min assist Assistive Device: Rolling walker Other: Completed EOB to recliner Balance Sitting Balance: Static: Good Sitting Balance: Dynamic: Fair Standing Balance: Static: Fair Standing Balance: Dynamic: Fair RUE Assessment: Exceptions to WFL (3/5) LUE Assessment: Exceptions to WFL (3/5) Activity Tolerance Endurance: Tolerates <30 minutes activity WITHOUT vital sign changes Plan Occupational Therapy Care Plan Occupational Therapy Care Plan (Active) Template: OT - Occupational Therapy Problem: Activity Tolerance Dates: Start: 01/18/25 Disciplines: OT Goal: Tolerate > 30 minutes of activity WITH rest breaks Dates: Start: 01/18/25 Expected End: 01/31/25 Description: Goal Description: Disciplines: OT Problem: Bed Mobility Dates: Start: 01/18/25 Disciplines: OT Goal: Patient will perform bed mobility with Stand By Assist Dates: Start: 01/18/25 Expected End: 01/31/25 Description: Goal Description: Disciplines: OT Problem: Dressing LB Dates: Start: 01/18/25 Disciplines: OT Goal: Patient will perform dressing LB with Moderate Assist Dates: Start: 01/18/25 Expected End: 01/31/25 Description: Goal Description: Disciplines: OT Problem: Dressing UB Dates: Start: 01/18/25 Disciplines: OT Goal: Patient will perform dressing UB with Minimum Assist Dates: Start: 01/18/25 Expected End: 01/31/25 Description: Goal Description: Disciplines: OT Problem: Eating Dates: Start: 01/18/25 Disciplines: OT Goal: Patient will perform eating with Set-Up Dates: Start: 01/18/25 Expected End: 01/31/25 Description: Goal Description: Disciplines: OT Problem: Functional Mobility Dates: Start: 01/18/25 Disciplines: OT Goal: Patient will perform functional mobility with Stand By Assist Dates: Start: 01/18/25 Expected End: 01/31/25 Description: Goal Description: Disciplines: OT Problem: Grooming Dates: Start: 01/18/25 Disciplines: OT Goal: Patient will perform grooming with Set-Up Dates: Start: 01/18/25 Expected End: 01/31/25 Description: Goal Description: Disciplines: OT Problem: Sitting Balance Dates: Start: 01/18/25 Disciplines: OT Goal: Improve balance to good Dates: Start: 01/18/25 Expected End: 01/31/25 Description: Static Dynamic Disciplines: OT Problem: Standing Balance Dates: Start: 01/18/25 Disciplines: OT Goal: Improve balance to good Dates: Start: 01/18/25 Expected End: 01/31/25 Description: Static Dynamic Disciplines: OT Problem: Strength Dates: Start: 01/18/25 Disciplines: OT Goal: Improve strength Dates: Start: 01/18/25 Expected End: 01/31/25 Description: B UE strength to 4/5 Disciplines: OT Problem: Transfers Dates: Start: 01/18/25 Disciplines: OT Goal: Patient will perform transfers with Stand By Assist Dates: Start: 01/18/25 Expected End: 01/31/25 Description: Goal Description: Disciplines: OT Occupational Therapy Care Plan (Resolved) There are no resolved problems. Principal Problem: Acute respiratory failure with hypoxia ([facility]) Active Problems: Paroxysmal atrial fibrillation ([facility]) Cardiomyopathy, nonischemic ([facility]) Atrial fibrillation with rapid ventricular response ([facility]) A-fib ([facility]) ELLY (acute kidney injury) Scrotal swelling Colostomy present ([facility]) Fall Traumatic rhabdomyolysis History of CVA (cerebrovascular accident) Hypotension Septic shock ([facility]) H/O unilateral orchiectomy H/O left inguinal hernia repair S/P partial resection of colon * Plan of Care - Rachel Kohli RCP - 01/17/2025 9:28 PM EDT Problem: Inadequate Airway Clearance Goal: Patient will maintain patent airway Description: INTERVENTIONS 1. Assess and monitor breath sounds, cough and sputum (if present) 2. Monitor respiratory rate and oxygen saturation 3. Collaborate with respiratory therapy to administer medication, oxygen, and suitable airway clearance techniques as ordered 4. Position patient for maximum ventilatory efficiency; elevate head of bed at least 30 degrees if appropriate 5. Provide adequate fluid intake to liquify secretions if appropriate 6. Suction secretions as indicated to maintain patent airway 7. Instruct patient to turn, cough, and deep breathe; encourage incentive spirometer if indicated Outcome: Progressing Note: Evaluation of progress towards goal: Pt stable on 6LNC Respiratory Therapy Clinical Practice Guidelines Consult Clinical Practice Guidelines Ordered Consult Assessment: Consult, Oxygen, Broncho-pulmonary hygiene Oxygen Indications: Hypoxemia Broncho-pulmonary Hygiene Indications: Inability/reluctance to change body position Vital Signs Pulse: 100 Heart Rate Source: Monitor Resp: 24 SpO2: 97 % O2 Device: Nasal cannula O2 Flow Rate (L/min): 6 L/min Patient Position: Semi-fowlers Respiratory Assessment Assessment Type: Assess only Subjective Comments: Sleeping Respiratory Pattern: Regular Chest Assessment: Chest expansion symmetrical Bilateral Breath Sounds: Clear, Diminished Patient Active Problem List Diagnosis Contracture of finger joint Stroke ([facility]) Paroxysmal atrial fibrillation ([facility]) Bluish skin discoloration Diverticulosis of colon Gastritis and duodenitis GI bleed Mesenteric artery stenosis Cerebral infarction ([facility]) Cardiomyopathy, nonischemic ([facility]) Atrial fibrillation with rapid ventricular response ([facility]) A-fib ([facility]) Acute respiratory failure with hypoxia ([facility]) ELLY (acute kidney injury) Scrotal swelling Colostomy present ([facility]) Fall Traumatic rhabdomyolysis History of CVA (cerebrovascular accident) Hypotension Septic shock ([facility]) H/O unilateral orchiectomy H/O left inguinal hernia repair S/P partial resection of colon Last Chest XRAY: Reviewed Pulmonary History: CHF RT Reassessment Due In: 12 hours Broncho-Pulmonary Hygiene Level of Movement Level 2: Actively changing positions - requires assistance Breath Sounds Level 1: Slightly diminished or clear Cough Level 1: Strong, effective Chest X-Ray Level 1: Possible signs of consolidation and/or atelectasis or clear ; No CXR available Sputum Production Level 2: Able to produce small to moderate amount of moderately thick secretions History & Physical Level 1: None or New onset of bronchitis or existing chronic pulmonary condition. (not in an exacerbation) SpO2 to O2 Need Level 3: >92% on NC @ 4-6lpm Patients Current Level & Intervention: 3 BPH technique per algorithm QID and PRN * Plan of Care - Marry Child RN - 01/17/2025 12:51 PM EDT Problem: Pain Goal: Patient goal is pain score less than 4, able to rest, and participant in treatment plan as appropriate Description: INTERVENTIONS: 1. Encourage patient or legal b2b sales representative to report early pain and ask [...] per policy 9. Teach patient or legal b2b sales representative interventions for comforting Outcome: Progressing Note: Evaluation of progress towards goal: Assess for discomfort with each nurse/patient interaction. Assist with repositioning as needed every 2 hrs for discomfort. Offer pain medications and assess pain scale prior to and after administration. No c/o pain at this time. Will continue to monitor and treat accordingly. Problem: Safety Goal: Patient will be injury free during hospitalization Description: INTERVENTIONS: 1. Assess patient's risk for falls and implement fall prevention plan of care per policy 2. Provide and maintain a safe environment 3. Proper use of double Identifiers 4. Medication administration using the 5 rights 5. Hand hygiene 6. Specimens are labeled at the bedside 7. Instruct patient/ patient b2b sales representative about use of safety devices 8. Include patient/ patient b2b sales representative in decisions related to safety Outcome: Progressing Note: Evaluation of progress towards goal: Side rails up x 2. Bed locked and in low position. Call light within reach. Hourly nursing rounds completed. No falls/injuries sustained at this time. Safety measures maintained. Problem: Infection Goal: Absence of infection during [...] hygiene technique. 7. Identify and instruct patient/patient b2b sales representative in use of appropriate isolation precautionsfor identified infection/symptoms. 8. Provide and discuss with patient/patient b2b sales representative on educational MDRO sheet. 9. Encourage and monitor nutritional status daily and consult substation design draftsperson if indicated. 10. Implement neutropenic guidelines as needed. Outcome: Progressing Note: Evaluation of progress towards goal: Monitor labs, VS and I&O. To report Abnormal results to MD. IV Flagyl and Rocephin continues as ordered. Problem: Knowledge Deficit Goal: Patient/patient b2b sales representative demonstrates understanding of disease process, treatment plan,medications, and discharge instructions Description: INTERVENTIONS 1. Complete learning assessment and assess knowledge base 2. Provide teaching at level of understanding 3. Provide teaching via preferred learning method(s) Outcome: Progressing Note: Evaluation of progress towards goal: Educated patient on plan of care and will educate throughout the day. Education provided prior to all procedures and medication administration. Encouraged patient to ask questions and answers provided. Problem: Discharge Planning Goal: Discharge to post-acute [...] Progressing Note: Evaluation of progress towards goal: Patient not ready for discharge at this time. Will continue to collaborate with ancillary services, healthcare social worker, physicians, patients and their family to work towards discharge. Problem: Moderate - High Risk Fall Score Description: Blue Fall Score of =/> 25 or indicated by [facility] Re[facility] Assessment Goal: Patient should be free from fall Description: Interventions: 1. [place] to environment 2. Hourly rounds addressing the [...] non-skid footwear 11. Teach patient and patient b2b sales representative to maintain environment for safety and [...] (cane, walker) within reach 19. Request patient b2b sales representative bring adaptive equipment/mobility aids from home or obtain and provide as needed 20. Consult pharmacy regarding effects of med's affecting mobility, cognition, and alternatives 21. Obtain physician order for PT if risk factors associated with mobility are present 22. Obtain physician order for OT as appropriate 23. Utilize diversional activities 24. Educate patient and patient b2b sales representative how to maintain a safe environment during visitationtimes (notify nurse prior to leaving bedside) 25. Consider appropriateness of medical or non-hospital medical assistant 26. Set up voiding schedule as appropriate (every 2 hours) Outcome: Progressing Note: Evaluation of progress towards goal: Side rails up x 2. Bed locked and in low position. Call light within reach. Hourly nursing rounds completed. No falls/injuries sustained at this time. Safety measures maintained. Problem: Potential for Compromised Skin Integrity Goal: [...] Progressing Note: Evaluation of progress towards goal: Skin integrity as charted. Patient encouraged to continue to reposition every 2 hrs and offered assistance as needed. Skin assessment and interventions completed and to continue. Goal: Patient's nutritional intake is adequate Description: [...] supplement as ordered 13. Collaborate with clinical substation design draftsperson 14. Include patient/ patient's b2b sales representative in decisions related to nutrition Outcome: Progressing Note: Evaluation of progress towards goal: Patient started on clear liquid diet and tolerating wellso far. Will continue to monitor. Problem: Urinary Incontinence Goal: Perineal skin integrity is maintained or improved Description: INTERVENTIONS 1. Assess genitourinary system, perineal skin, labs (urinalysis), and history of incontinence to include past management, aggravating, and alleviating factors 2. Keep skin clean and dry 3. Apply skin protectant 4. Develop skin care regimen 5. Provide privacy when changing patients incontinence device to maintain their dignity 6. Consider placing an indwelling catheter 7. Collaborate with interdisciplinary team and initiate plans and interventions as needed Outcome: Progressing Note: Evaluation of progress towards goal: Blackwell catheter intact and patent. CHG blackwell care provided. * Plan of Care - Hueyn Hammer RCP - 01/17/2025 9:43 AM EDT Problem: Inadequate Airway Clearance Goal: Patient will maintain patent airway Description: INTERVENTIONS 1. Assess and monitor breath sounds, cough and sputum (if present) 2. Monitor respiratory rate and oxygen saturation 3. Collaborate with respiratory therapy to administer medication, oxygen, and suitable airway clearance techniques as ordered 4. Position patient for maximum ventilatory efficiency; elevate head of bed at least 30 degrees if appropriate 5. Provide adequate fluid intake to liquify secretions if appropriate 6. Suction secretions as indicated to maintain patent airway 7. Instruct patient to turn, cough, and deep breathe; encourage incentive spirometer if indicated Outcome: Progressing Note: Evaluation of progress towards goal: No distress noted. Will wean O2 as tolerates. Respiratory Therapy Clinical Practice Guidelines Consult Clinical Practice Guidelines Ordered Consult Assessment: Consult, Oxygen, Broncho-pulmonary hygiene Oxygen Indications: Hypoxemia Broncho-pulmonary Hygiene Indications: Inability/reluctance to change body position Broncho-pulmonary Hygiene Total: 1 Vital Signs Pulse: 109 Heart Rate Source: Monitor Resp: 23 SpO2: 93 % O2 Device: Nasal cannula (salter) O2 Flow Rate (L/min): (S) 9 L/min Respiratory Assessment Assessment Type: Subsequent assessment Respiratory Pattern: Regular Chest Assessment: Chest expansion symmetrical Bilateral Breath Sounds: Clear, Diminished Patient Active Problem List Diagnosis Contracture of finger joint Stroke ([facility]) Paroxysmal atrial fibrillation ([facility] [facility] Bluish skin discoloration Diverticulosis of colon Gastritis and duodenitis GI bleed Mesenteric artery stenosis Cerebral infarction ([facility]) Cardiomyopathy, nonischemic ([facility]) Atrial fibrillation with rapid ventricular response ([facility] [place] Acute respiratory failure with hypoxia [place] ELLY (acute kidney injury) Scrotal swelling Colostomy present ([facility]) Fall Traumatic rhabdomyolysis History of CVA (cerebrovascular accident) Hypotension Septic shock ([facility]) H/O unilateral orchiectomy H/O left inguinal hernia repair S/P partial resection of colon Last Chest XRAY: Reviewed Pulmonary History: Reviewed RT Reassessment Due In: 24 hours Broncho-Pulmonary Hygiene Level of Movement Level 2: Actively changing positions - requires assistance Breath Sounds Level 2: Diminished and/or coarse rhonchi Cough Level 1: Strong, effective Chest X-Ray Level 1: Possible signs of consolidation and/or atelectasis or clear ; No CXR available Sputum Production Level 1: None or small amount of thin or watery secretions with effective cough History & Physical Level 1: None or New onset of bronchitis or existing chronic pulmonary condition. (not in an exacerbation) SpO2 to O2 Need Level 4: >90% on NC >6 lpm or mask >40% or mechanical vent required Patients Current Level & Intervention: 1 Teach/instruct patient to cough and deep breathe Q1-2 hours Aerobika at bedside. * Plan of Care - Fior Mendoza RN - 01/17/2025 2:30 AM EDT Problem: Pain Goal: Patient goal is pain score less than 4, able to rest, and participant in treatment plan as appropriate Description: INTERVENTIONS: 1. Encourage patient or legal b2b sales representative to report early pain and ask [...] per policy 9. Teach patient or legal b2b sales representative interventions for comforting Outcome: Progressing Note: Evaluation of progress towards goal: Will continue to assess patient vital signs, including pain; will continue to implement pharmacological and non- pharmacological measures as needed; will continue to encourage patient to report early signs/ symptoms of pain. Problem: Safety Goal: Patient will be injury free during hospitalization Description: INTERVENTIONS: 1. Assess patient's risk for falls and implement fall prevention plan of care per policy 2. Provide and maintain a safe environment 3. Proper use of double Identifiers 4. Medication administration using the 5 rights 5. Hand hygiene 6. Specimens are labeled at the bedside 7. Instruct patient/ patient b2b sales representative about use of safety devices 8. Include patient/ patient b2b sales representative in decisions related to safety Outcome: Progressing Note: Evaluation of progress towards goal: Patient has been educated on safety interventions. Bed alarms and brakes are active. Patient has been injury free during this hospitalization. Problem: Infection Goal: Absence of infection during [...] hygiene technique. 7. Identify and instruct patient/patient b2b sales representative in use of appropriate isolation precautionsfor identified infection/symptoms. 8. Provide and discuss with patient/patient b2b sales representative on educational MDRO sheet. 9. Encourage and monitor nutritional status daily and consult substation design draftsperson if indicated. 10. Implement neutropenic guidelines as needed. Outcome: Progressing Note: Evaluation of progress towards goal: Afebrile, Antibiotics on board, no s/s infection noted at this time, will continue to monitor Problem: Moderate - High Risk Fall Score Description: Blue Fall Score of =/> 25 or indicated by [facility] Assessment Goal: Patient should be free from fall Description: Interventions: 1. [place] to environment 2. Hourly rounds addressing the [...] non-skid footwear 11. Teach patient and patient b2b sales representative to maintain environment for safety and [...] (cane, walker) within reach 19. Request patient b2b sales representative bring adaptive equipment/mobility aids from home or obtain and provide as needed 20. Consult pharmacy regarding effects of med's affecting mobility, cognition, and alternatives 21. Obtain physician order for PT if risk factors associated with mobility are present 22. Obtain physician order for OT as appropriate 23. Utilize diversional activities 24. Educate patient and patient b2b sales representative how to maintain a safe environment during visitationtimes (notify nurse prior to leaving bedside) 25. Consider appropriateness of medical or non-hospital medical assistant 26. Set up voiding schedule as appropriate (every 2 hours) Outcome: Progressing Note: Evaluation of progress towards goal: No falls or injury noted, safety measures in place, frequent monitoring done. Call light within reach, personal belongings within reach on bedside table. Will continue to assess for safety risks. Problem: Potential for Compromised Skin Integrity Goal: [...] Progressing Note: Evaluation of progress towards goal: No skin breakdown noted, Turn and reposition q2hrs, Skinmaintained clean and dry. Will continue to monitor. Problem: Urinary Incontinence Goal: Perineal skin integrity is maintained or improved Description: INTERVENTIONS 1. Assess genitourinary system, perineal skin, labs (urinalysis), and history of incontinence to include past management, aggravating, and alleviating factors 2. Keep skin clean and dry 3. Apply skin protectant 4. Develop skin care regimen 5. Provide privacy when changing patients incontinence device to maintain their dignity 6. Consider placing an indwelling catheter 7. Collaborate with interdisciplinary team and initiate plans and interventions as needed Outcome: Progressing Note: Evaluation of progress towards goal: Will cont to keep pt skin clean and dry; will cont to assess pt for incont. [id number] or as needed; will cont * Plan of Care - Rachel Kohli RCP - 01/16/2025 8:39 PM EDT Problem: Inadequate Airway Clearance Goal: Patient will maintain patent airway Description: INTERVENTIONS 1. Assess and monitor breath sounds, cough and sputum (if present) 2. Monitor respiratory rate and oxygen saturation 3. Collaborate with respiratory therapy to administer medication, oxygen, and suitable airway clearance techniques as ordered 4. Position patient for maximum ventilatory efficiency; elevate head of bed at least 30 degrees if appropriate 5. Provide adequate fluid intake to liquify secretions if appropriate 6. Suction secretions as indicated to maintain patent airway 7. Instruct patient to turn, cough, and deep breathe; encourage incentive spirometer if indicated Outcome: Progressing Note: Evaluation of progress towards goal: Pt stable on salter NC, Aerobika at bedside Problem: Alternate Airway Goal: ET tube will be managed safely Description: INTERVENTIONS 1. Assess and monitor insertion depth at lip/nare line 2. Utilize ETT securing device and change as necessary to ensure ETT is properly secured to patient 3. Keep resuscitation bag, mask, oxygen connection tubing, and extra ETT readily available; accompanying patient at all times 4. Reposition ET tube to opposite side of mouth 5. Support ventilator tubing to avoid pressure from drag of tubing 6. Monitor cuff pressure to maintain adequate seal Outcome: Completed Note: Evaluation of progress towards goal: Pt extubated yesterday * Plan of Care - Matilda San RN - 01/16/2025 4:26 PM EDT Problem: Pain Goal: Patient goal is pain score less than 4, able to rest, and participant in treatment plan as appropriate Description: INTERVENTIONS: 1. Encourage patient or legal b2b sales representative to report early pain and ask [...] per policy 9. Teach patient or legal b2b sales representative interventions for comforting Outcome: Progressing Note: Evaluation of progress towards goal: Continue to monitor patient for pain and comfort and reposition, and/or medicate for pain as needed. Problem: Safety Goal: Patient will be injury free during hospitalization Description: INTERVENTIONS: 1. Assess patient's risk for falls and implement fall prevention plan of care per policy 2. Provide and maintain a safe environment 3. Proper use of double Identifiers 4. Medication administration using the 5 rights 5. Hand hygiene 6. Specimens are labeled at the bedside 7. Instruct patient/ patient b2b sales representative about use of safety devices 8. Include patient/ patient b2b sales representative in decisions related to safety Outcome: Progressing Note: Hourly rounding and safety measures continued including, side rails in place, bed in lowest position, standard fall precautions in place, security monitor on with alarms audiblePatient remains free from injury and falls. Problem: Infection Goal: Absence of infection during [...] hygiene technique. 7. Identify and instruct patient/patient b2b sales representative in use of appropriate isolation precautionsfor identified infection/symptoms. 8. Provide and discuss with patient/patient b2b sales representative on educational MDRO sheet. 9. Encourage and monitor nutritional status daily and consult substation design draftsperson if indicated. 10. Implement neutropenic guidelines as needed. Outcome: Progressing Note: Evaluation of progress towards goal: RN will continue to address appropriateness of lines, blackwell, ect. And assess for s/s of infection and address accordingly. Problem: Knowledge Deficit Goal: Patient/patient b2b sales representative demonstrates understanding of disease process, treatment plan,medications, and discharge instructions Description: INTERVENTIONS 1. Complete learning assessment and assess knowledge base 2. Provide teaching at level of understanding 3. Provide teaching via preferred learning method(s) Outcome: Progressing Note: Evaluation of progress towards goal: Patient updated/educated on plan of care and interventions. Patient verbalizes understanding, will continue to monitor for new learning opportunities and address accordingly. Problem: Discharge Planning Goal: Discharge to post-acute [...] Progressing Note: Evaluation of progress towards goal: Continue to collaborate with all services and work towards discharge Problem: Moderate - High Risk Fall Score Description: Blue Fall Score of =/> 25 or indicated by [facility] Assessment Goal: Patient should be free from fall Description: Interventions: 1. [place] to environment 2. Hourly rounds addressing the [...] non-skid footwear 11. Teach patient and patient b2b sales representative to maintain environment for safety and [...] (cane, walker) within reach 19. Request patient b2b sales representative bring adaptive equipment/mobility aids from home or obtain and provide as needed 20. Consult pharmacy regarding effects of med's affecting mobility, cognition, and alternatives 21. Obtain physician order for PT if risk factors associated with mobility are present 22. Obtain physician order for OT as appropriate 23. Utilize diversional activities 24. Educate patient and patient b2b sales representative how to maintain a safe environment during visitationtimes (notify nurse prior to leaving bedside) 25. Consider appropriateness of medical or non-hospital medical assistant 26. Set up voiding schedule as appropriate (every 2 hours) Outcome: Progressing Note: Evaluation of progress towards goal: Fall risk prevention safety measures and hourly roundingin place. RN will continue to monitor patient fall risk / environmental concerns and address accordingly. Hourly rounds. Area clear of hazards. Call light in reach. Non-skid footwear on. Bed wheels locked and bed in lowest position. No falls. Problem: Potential for Compromised Skin Integrity Goal: [...] Progressing Note: Evaluation of progress towards goal: Reposition patient every 2 hours and PRN. Protective foam dressings intact to bilateral heels and use of other methods of pressure reduction in place including low air loss mattress and waffle boots. Repositioning aids such as wedges/pillows utilized. Skinwill be assessed every 2 hours and as needed and kept clean and dry. Goal: Patient's nutritional intake [...] supplement as ordered 13. Collaborate with clinical substation design draftsperson 14. Include patient/ patient's b2b sales representative in decisions related to nutrition Outcome: Progressing Note: Evaluation of progress towards goal: Patient will continue to consume adequate nutrition to improve health. Patient will be monitored for nutritional needs and TF/TPN/Enteral feedings will be addressed accordingly. Problem: Urinary Incontinence Goal: Perineal skin integrity is maintained or improved Description: INTERVENTIONS 1. Assess genitourinary system, perineal skin, labs (urinalysis), and history of incontinence to include past management, aggravating, and alleviating factors 2. Keep skin clean and dry 3. Apply skin protectant 4. Develop skin care regimen 5. Provide privacy when changing patients incontinence device to maintain their dignity 6. Consider placing an indwelling catheter 7. Collaborate with interdisciplinary team and initiate plans and interventions as needed Outcome: Progressing Note: Evaluation of progress towards goal: Con't to monitor fluid status and address accordingly Problem: Inadequate Airway Clearance Goal: Patient will maintain patent airway Description: INTERVENTIONS 1. Assess and monitor breath sounds, cough and sputum (if present) 2. Monitor respiratory rate and oxygen saturation 3. Collaborate with respiratory therapy to administer medication, oxygen, and suitable airway clearance techniques as ordered 4. Position patient for maximum ventilatory efficiency; elevate head of bed at least 30 degrees if appropriate 5. Provide adequate fluid intake to liquify secretions if appropriate 6. Suction secretions as indicated to maintain patent airway 7. Instruct patient to turn, cough, and deep breathe; encourage incentive spirometer if indicated Outcome: Progressing Note: Evaluation of progress towards goal: Patient able to clear his airway. Working with IncentiveSpirometer, out of bed to a chair, and aeosols started. * Discharge Planning Note - Bri Leblanc - 01/16/2025 2:58 PM EDT DISCHARGE PLANNING NOTE Referral sent to. [facility], [place], [place] (P# ; F# ) * Query Response - Laura Cobian MD - 01/16/2025 2:37 PM EDT Query Response Note AUTOMATED QUERY TEXT: Type of Heart Failure: This query seeks further clarification of documentation to reflect all conditions that you are monitoring, evaluating, treating or that extend hospitalization or utilize additional resources. Please utilize your independent clinical judgment when addressing the question(s) below. Please provide further specificity, if known. Clinical indicators include: a-fib, atrial fibrillation, chf (congestive heart failure, ef, echo, dyspnea, pitting edema, edema, x-ray chest 1 view, effusion, systolic function, ejection fraction, function, swelling, shortness of breath, vascular congestion, afib, shortness of breath, orthopnea, chest x-ray, echocardiogram, troponin, probnp, bnp, jvd, cxr Options provided: -- Systolic heart failure [HFrEF] -- Diastolic heart failure [HFpEF] -- Systolic and diastolic heart failure [HFrEF and HFpEF] -- Biventricular heart failure -- High output heart failure -- End stage heart failure -- Other - I will add my own diagnosis -- Dismiss - Not applicable / Not valid AUTOMATED QUERY RESPONSE TEXT: Ischemic cardiomyopathy with recovered EF. If further questions please inquire from cardiology. Electronically signed by: Laura Cobian MD 01/16/2025 2:35 PM * Discharge Planning Note - BRANDON Baez - 01/16/2025 1:41 PM EDT DISCHARGE PLANNING NOTE Per epic, pt is an 18% readmission risk. SW reviews chart & discusses pt w/ RN. PT rec skilled care at a SNF. SW meets w/ pt in room, introduces self & SW role. Pt sitting up in bed, alert, oriented, pleasant. SW discusses SNF choices, provides SNF list. Pt said he is familiar w/ [facility] ([facility]) in [place] and is agreeable for SW to place a referral. Pt said he likes this facility and would go there for work. [facility]-tasked. SW will con't to follow & assist w/ safe dc planning. * PT/OT/FLOOR ATTENDANT - Irineo Arguelles PT - 01/16/2025 12:48 PM EDT Physical Therapy Evaluation Discharge Recommendations for Safe Patient Transition PT Discharge Disposition Recommendation: Post acute - moderate PT Post Acute Moderate Rehab Needs: Tolerate 1-2 hrs of therapy 3-5 days/wk (pending resolution of current medical issues) Current Impairments Informing Therapy Recommendation: Ambulation status/safety, ADL status, Fall risk, Endurance level Cmm Inspector Support for-: Mobility Deficits, ADL Deficits Therapy Plan Need for skilled Physical Therapy to address deficits in functional mobility due to a status decline resulting from current medical status. Patient admitted after fall at home and surgery on 01/14/25 for LIH repair, L orchectomy, and Tracy's procedure. He has relevant past medical history of A- fib, Hypertension, and current ELLY. During today's session two person assist was required for 5 feet of ambulation due to significant fatigue and imbalance, with heart rate elevating from 100 to 120. PT Treatment/Interventions: ADL retraining, Functional transfer training, LE strengthening/ROM, Endurance training, Balance, Stair training, Gait training, Neuromuscular reeducation, Bed mobility, Functional activities PT Frequency: 4-5days/week PT Duration: For 15 visits Assessment Patient Assessment Therapy Problem List: Abnormal posture, Decreased ADL status, Decreased balance, Decreased endurance, Decreased gross motor, Decreased high-level ADLs, Decreased mobility, Decreased self-care trans, Decreased LE strength Patient Response to Treatment: Tolerated evaluation without adverse reaction Mood/Affect: Appropriate for circumstances Rehab Prognosis: Good, With continued PT status post acute discharge Visit RN Communication: Yes Medical Record Reviewed: Yes PT Type of Visit: Evaluation Precautions Activity: PASS Equipment: RW Telemetry/Employee Welfare Manager: Yes Oxygen Order : Per RESERVES CLERK Guidelines Oxygen Used: 15 L Pain Assessment Pain Assessment: No/denies pain Pain Score: 0 Home Living Type of Home: House Home Layout: Two level Stairs to Enter: 3 Hand Rails: Bilateral Stairs in Home: one flight (does not use stairs in home - rents it out) Bathroom Shower/Tub: Walk-in shower Bathroom Toilet: Standard Bathroom Equipment: Grab bars in shower, Shower chair Bathroom Accessibility: Accessible via walker Home Equipment: Rolling walker, Cane, Wheelchair-manual Prior Function Lives With: Alone Receives Help From: (States that renters living upstairs are available 17/12. Was not recieving any help before current medical issues) Level of Mobility: Independent with ADLs and functional transfers or gait Homemaking Assistance: Independent Vocational: Retired ADL / IADL Hand Dominance: Right Hearing / Speech / Vision Hearing: Within Functional Limits Speech: Within Functional Limits Current Vision: Wears glasses only for reading Cognition Orientation Level: Oriented X4 Sensation Overall Sensation Status: Within Functional Limits Bed Mobility Sit to Supine: Min assist, Contact guard assist (Patient upright in bedside chair at start of therapy session, brought to bed at end of session, call light within reach, all needs met) Transfers Sit to Stand: Contact guard assist (x2) Stand to Sit: Contact guard assist (x2) Gait Base of Support: Narrow Pattern: R Decreased foot clearance, L Decreased foot clearance, Decreased jessie Gait Assistance: Contact guard assist (x2) Assistive Device: Rolling walker Gait Distance: 5 Limiting Factors to Gait: Decreased safety, Weakness 2 Turns: Not attempted d/t safety concerns Balance Balance Evaluation: Exceptions to Functional Limits Sitting Balance: Static: Fair Sitting Balance: Dynamic: Fair Standing Balance: Static: Fair Standing Balance: Dynamic: Fair RLE Assessment: Exceptions to WFL RLE Strength RLE Overall Strength: Deficits LLE Assessment: Exceptions to WFL LLE Strength LLE Overall Strength: Deficits Activity Tolerance Endurance: Tolerates <30 minutes activity with vital sign changes Other: HR james from 100 to 122 with ambulation from bed side chair to bed Plan Physical Therapy Care Plan Physical Therapy Care Plan (Active) Template: PT - Physical Therapy Problem: Activity Tolerance Dates: Start: 01/16/25 Disciplines: PT Goal: Tolerate > 30 Minutes of Activity WITHOUT Change in Vitals Dates: Start: 01/16/25 Expected End: 02/05/25 Description: Goal Description: Disciplines: PT Problem: Bed Mobility Dates: Start: 01/16/25 Disciplines: PT Goal: Patient will perform bed mobility Independently Dates: Start: 01/16/25 Expected End: 02/05/25 Description: Goal Description: Disciplines: PT Problem: Gait Dates: Start: 01/16/25 Disciplines: PT Goal: Patient will perform gait Independently Dates: Start: 01/16/25 Expected End: 02/05/25 Description: With____,____feet Goal Description: Disciplines: PT Problem: Sitting Balance Dates: Start: 01/16/25 Disciplines: PT Goal: Improve balance to normal Dates: Start: 01/16/25 Expected End: 02/05/25 Description: Static Dynamic Disciplines: PT Problem: Standing Balance Dates: Start: 01/16/25 Disciplines: PT Goal: Improve balance to normal Dates: Start: 01/16/25 Expected End: 02/05/25 Description: Static Dynamic Disciplines: PT Problem: Strength Dates: Start: 01/16/25 Disciplines: PT Goal: Improve strength Dates: Start: 01/16/25 Expected End: 02/05/25 Description: Of extremity/ location: To facilitate: Disciplines: PT Problem: Transfers Dates: Start: 01/16/25 Disciplines: PT Goal: Patient will perform transfers Independently Dates: Start: 01/16/25 Expected End: 02/05/25 Description: Goal Description: Disciplines: PT Physical Therapy Care Plan (Resolved) There are no resolved problems. Principal Problem: Acute respiratory failure with hypoxia [place] Active Problems: Paroxysmal atrial fibrillation [place] Cardiomyopathy, nonischemic [place] Atrial fibrillation with rapid ventricular response [place] A-fib [place] ELLY (acute kidney injury) Scrotal swelling Colostomy present [place] Fall Traumatic rhabdomyolysis History of CVA (cerebrovascular accident) Hypotension Septic shock [place] H/O unilateral orchiectomy H/O left inguinal hernia repair S/P partial resection of colon 6 Clicks: Basic Mobility Turning from your back to your side while in a flat bed without using bed rails?: A little Moving from lying on your back to sitting on side of flat bed without using bed rails?: A little Moving to and from bed to a chair (including w/c)?: A lot Standing up from a chair using your arms (e.g. w/c or bedside chair)?: A little To walk in hospital room?: A lot Climbing 3-5 steps with a railing?: Total Scoring 6 Clicks: Basic Mobility Raw Score: 14 CMS G Code Modifier: CK Past Medical History: Diagnosis Date A-fib [place] 01/14/2025 admission Acute renal failure (ARF) occured at time of GI bleed Atrial fibrillation ([facility] Bluish skin discoloration CHF (congestive heart failure) [place] 2012 initial EF 15 % // last ECHO 55 % Cholecystitis Contracture of finger joint Patient had an accident on a ladder causing deformity and this eventually developed into a contracture. Patient elected not to have surgery. 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) 06/2016 rx with TPA Past Surgical History: Procedure Laterality Date CARDIAC CATHETERIZATION COLONOSCOPY diverticulosis / lg ingunial hernia CREATION COLOSTOMY Left 01/14/2025 Performed by Delmar Ramirez MD at [facility] ESOPHAGOGASTRODUODENOSCOPY severe errosis gastritis and duodenitis ORCHIECTOMY Left 01/14/2025 Performed by Delmar Ramirez MD at [facility] REPAIR HERNIA INGUINAL Left 01/14/2025 Performed by Delmar Ramirez MD at [facility] TONSILLECTOMY * Plan of Care - Jameel Yusuf RCP - 01/16/2025 9:48 AM EDT Respiratory Therapy Clinical Practice Guidelines Consult Clinical Practice Guidelines Ordered Consult Assessment: Consult, Bronchodilator Bronchodilator Indications: Bronchospasm/wheezing Bronchodilator Total: 1 Vital Signs BP: 124/81 Pulse: 108 Heart Rate Source: Monitor Resp: 23 SpO2: 93 % O2 Device: Nasal cannula O2 Flow Rate (L/min): 3 L/min FiO2 (%): 32 % Patient Position: Sitting Respiratory Assessment Assessment Type: Pre-treatment, Subsequent assessment Level of Consciousness: Alert Respiratory Pattern: Regular Chest Assessment: Chest expansion symmetrical Bilateral Breath Sounds: Clear, Diminished Patient Active Problem List Diagnosis Contracture of finger joint Stroke ([facility]) Paroxysmal atrial fibrillation ([facility]) Bluish skin discoloration Diverticulosis of colon Gastritis and duodenitis GI bleed Mesenteric artery stenosis Cerebral infarction ([facility]) Cardiomyopathy, nonischemic ([facility]) Atrial fibrillation with rapid ventricular response ([facility] A-fib ([facility]) Acute respiratory failure with hypoxia ([facility]) ELLY (acute kidney injury) Scrotal swelling Colostomy present ([facility]) Fall Traumatic rhabdomyolysis History of CVA (cerebrovascular accident) Hypotension Septic shock ([facility]) H/O unilateral orchiectomy H/O left inguinal hernia repair S/P partial resection of colon Last Chest XRAY: Reviewed Pulmonary History: Reviewed RT Reassessment Due In: 12 hours Bronchodilator Respiratory Rate Level 2: Less than 20 Dyspnea Level 1: No SOB Breath Sounds Level 1: Clear and Level 2: Diminished and/or faint wheezes Respiratory History Level 1: None Oxygen to Keep SpO2 Greater Than Or Equal To 92% Level 2: 1-3 LPM 25%-35% or NIV 41 - 50% Peak Flow ([employer] Only) Home Therapy: Not Applicable Patients Current Level & Intervention: 1 Every 4 hours PRN for wheezing via nebulizer Problem: Inadequate Airway Clearance Goal: Patient will maintain patent airway Description: INTERVENTIONS 1. Assess and monitor breath sounds, cough and sputum (if present) 2. Monitor respiratory rate and oxygen saturation 3. Collaborate with respiratory therapy to administer medication, oxygen, and suitable airway clearance techniques as ordered 4. Position patient for maximum ventilatory efficiency; elevate head of bed at least 30 degrees if appropriate 5. Provide adequate fluid intake to liquify secretions if appropriate 6. Suction secretions as indicated to maintain patent airway 7. Instruct patient to turn, cough, and deep breathe; encourage incentive spirometer if indicated Outcome: Progressing Note: Evaluation of progress towards goal: Reviewed and continued. * Plan of Care - Fior Mendoza RN - 01/16/2025 4:52 AM EDT Problem: Pain Goal: Patient goal is pain score less than 4, able to rest, and participant in treatment plan as appropriate Description: INTERVENTIONS: 1. Encourage patient or legal b2b sales representative to report early pain and ask [...] per policy 9. Teach patient or legal b2b sales representative interventions for comforting Outcome: Progressing Note: Evaluation of progress towards goal: Will continue to assess patient vital signs, including pain; will continue to implement pharmacological and non- pharmacological measures as needed; will continue to encourage patient to report early signs/ symptoms of pain. Problem: Safety Goal: Patient will be injury free during hospitalization Description: INTERVENTIONS: 1. Assess patient's risk for falls and implement fall prevention plan of care per policy 2. Provide and maintain a safe environment 3. Proper use of double Identifiers 4. Medication administration using the 5 rights 5. Hand hygiene 6. Specimens are labeled at the bedside 7. Instruct patient/ patient b2b sales representative about use of safety devices 8. Include patient/ patient b2b sales representative in decisions related to safety Outcome: Progressing Note: Evaluation of progress towards goal: Patient has been educated on safety interventions. Bed alarms and brakes are active. Patient has been injury free during this hospitalization. Problem: Infection Goal: Absence of infection during [...] hygiene technique. 7. Identify and instruct patient/patient b2b sales representative in use of appropriate isolation precautionsfor identified infection/symptoms. 8. Provide and discuss with patient/patient b2b sales representative on educational MDRO sheet. 9. Encourage and monitor nutritional status daily and consult substation design draftsperson if indicated. 10. Implement neutropenic guidelines as needed. Outcome: Progressing Note: Evaluation of progress towards goal: Afebrile, Antibiotics on board, no s/s infection noted at this time, will continue to monitor Problem: Moderate - High Risk Fall Score Description: Blue Fall Score of =/> 25 or indicated by [facility] Assessment Goal: Patient should be free from fall Description: Interventions: 1. [place] to environment 2. Hourly rounds addressing the [...] non-skid footwear 11. Teach patient and patient b2b sales representative to maintain environment for safety and [...] (cane, walker) within reach 19. Request patient b2b sales representative bring adaptive equipment/mobility aids from home or obtain and provide as needed 20. Consult pharmacy regarding effects of med's affecting mobility, cognition, and alternatives 21. Obtain physician order for PT if risk factors associated with mobility are present 22. Obtain physician order for OT as appropriate 23. Utilize diversional activities 24. Educate patient and patient b2b sales representative how to maintain a safe environment during visitationtimes (notify nurse prior to leaving bedside) 25. Consider appropriateness of medical or non-hospital medical assistant 26. Set up voiding schedule as appropriate (every 2 hours) Outcome: Progressing Note: Evaluation of progress towards goal: No falls or injury noted, safety measures in place, frequent monitoring done. Call light within reach, personal belongings within reach on bedside table. Will continue to assess for safety risks. Problem: Potential for Compromised Skin Integrity Goal: [...] Progressing Note: Evaluation of progress towards goal: No skin breakdown noted, Turn and reposition q2hrs, Skinmaintained clean and dry. Will continue to monitor. * Plan of Care - Fior Mendoza RN - 01/16/2025 4:51 AM EDT Problem: Pain Goal: Patient goal is pain score less than 4, able to rest, and participant in treatment plan as appropriate Description: INTERVENTIONS: 1. Encourage patient or legal b2b sales representative to report early pain and ask [...] per policy 9. Teach patient or legal b2b sales representative interventions for comforting Outcome: Progressing Note: Evaluation of progress towards goal: Will continue to assess patient vital signs, including pain; will continue to implement pharmacological and non- pharmacological measures as needed; will continue to encourage patient to report early signs/ symptoms of pain. Problem: Safety Goal: Patient will be injury free during hospitalization Description: INTERVENTIONS: 1. Assess patient's risk for falls and implement fall prevention plan of care per policy 2. Provide and maintain a safe environment 3. Proper use of double Identifiers 4. Medication administration using the 5 rights 5. Hand hygiene 6. Specimens are labeled at the bedside 7. Instruct patient/ patient b2b sales representative about use of safety devices 8. Include patient/ patient b2b sales representative in decisions related to safety Outcome: Progressing Note: Evaluation of progress towards goal: Patient has been educated on safety interventions. Bed alarms and brakes are active. Patient has been injury free during this hospitalization. Problem: Infection Goal: Absence of infection during [...] hygiene technique. 7. Identify and instruct patient/patient b2b sales representative in use of appropriate isolation precautionsfor identified infection/symptoms. 8. Provide and discuss with patient/patient b2b sales representative on educational MDRO sheet. 9. Encourage and monitor nutritional status daily and consult substation design draftsperson if indicated. 10. Implement neutropenic guidelines as needed. Outcome: Progressing Note: Evaluation of progress towards goal: Afebrile, Antibiotics on board, no s/s infection noted at this time, will continue to monitor Problem: Safety - Medical Restraint Goal: Free from restraint(s) (Restraint for Interference with Correctional Food Service Supervisor) Description: INTERVENTIONS: 1. ONCE/SHIFT or MINIMUM Q12H: Assess and document the continuing need for restraints 2. Order is valid for the duration of the episode of care 3. Discontinue at the earliest possible time once the reason for restraints no longer exists 4. Identify and implement measures to help patient regain control 5. Food, fluids, and toilet offered at a minimum of every 2 hours 6. RN modifies the patient's plan of care by entering a problem statement related to safety; individualizes the safety outcome Outcome: Progressing Note: Evaluation of progress towards goal: pt. Free from restraints Problem: Moderate - High Risk Fall Score Description: Blue Fall Score of =/> 25 or indicated by [facility] Assessment Goal: Patient should be free from fall Description: Interventions: 1. [place] to environment 2. Hourly rounds addressing the [...] non-skid footwear 11. Teach patient and patient b2b sales representative to maintain environment for safety and [...] (cane, walker) within reach 19. Request patient b2b sales representative bring adaptive equipment/mobility aids from home or obtain and provide as needed 20. Consult pharmacy regarding effects of med's affecting mobility, cognition, and alternatives 21. Obtain physician order for PT if risk factors associated with mobility are present 22. Obtain physician order for OT as appropriate 23. Utilize diversional activities 24. Educate patient and patient b2b sales representative how to maintain a safe environment during visitationtimes (notify nurse prior to leaving bedside) 25. Consider appropriateness of medical or non-hospital medical assistant 26. Set up voiding schedule as appropriate (every 2 hours) Outcome: Progressing Note: Evaluation of progress towards goal: No falls or injury noted, safety measures in place, frequent monitoring done. Call light within reach, personal belongings within reach on bedside table. Will continue to assess for safety risks. Problem: Potential for Compromised Skin Integrity Goal: [...] Progressing Note: Evaluation of progress towards goal: No skin breakdown noted, Turn and reposition q2hrs, Skinmaintained clean and dry. Will continue to monitor. * Discharge Planning Note - Kerrie Acevedo RN - 01/15/2025 11:25 AM EDT Care Navigation Assessment PCP NO PCP, NO PCP Previous CN attempted to assist patient with finding new PCP, patient declined. Patient only follows with Cardiology. CN will continue to follow. Patient is currently intubated on ventilator. Information taken from previous CN in [place] admission assessment . Patient is admitted with afib. POD#1 Open primary incarcerated left inguinal hernia repair ([place]), Sigmoid colectomy with end-colostomy, Left orchiectomy, Omentectomy. Patient is currently on IV rocephin and flagyl. No weekend discharge expected. CN will continue to follow for needs after extubated. - Kerrie Acevedo RN 01/15/25 11:29 AM Initial Assessment Initial Assessment Flowsheet Row Most Recent Value Patient Information Initial Pre-Hospitalization Assessment Completed? Completed Primary Caregiver Self Support System Family Members, Neighbors Discharge Planning Living Arrangements Private Residence, Alone Assistance Needed poss [facility] Type of Residence Private residence, Apartment Private Residence 2 story Can patient reside [...] to buy more. Patient unable to answer Within the past 12 months the food we bought just didn't last and we didn't have money to get more.Patient unable to answer Hunger Screening Complete? No Caregiver/Family Member Caregiver/Support System Limitations Patient/Caregiver Goals Patient/Caregiver Goals Home No Needs Home No Needs Alone Community Provider Referral Community Provider Referral None Services Requested Patient expects to be discharged to: home with self care Does the patient wish to have family/friend/caregiver involved in their discharge planning? No, thepatient does not wish to have family/friend/caregiver involved in their discharge planning Discharge Disposition Home with self care * Plan of Care - Myranda Roe [facility] - 01/15/2025 10:07 AM EDT Problem: Medication Description: If medication [...] shows no change in renal function. * PT/OT/FLOOR ATTENDANT - Payal Segundo, OTR/L - 01/15/2025 8:37 AM EDT Occupational Therapy OT Type of Visit: Medical deferral Patient intubated and sedated, OT will hold and check back as appropriate. * PT/OT/FLOOR ATTENDANT - Alannah Donald, PT - 01/15/2025 8:34 AM EDT Physical Therapy PT Type of Visit: Medical deferral PT to hold as patient is intubated and sedated post-op surgery and transfer. PT to hold * Plan of Care - Jameel Yusuf RCP - 01/15/2025 8:26 AM EDT Respiratory Therapy Clinical Practice Guidelines Consult Clinical Practice Guidelines Ordered Consult Assessment: Consult, Broncho-pulmonary hygiene, Mechanical ventilator Broncho-pulmonary Hygiene Indications: Inability/reluctance to change body position, Retained secretions or difficulty with clearance, To prevent/reverse atelectasis Broncho-pulmonary Hygiene Total: 1 Vital Signs BP: 117/72 Pulse: 115 Heart Rate Source: Monitor Resp: 25 SpO2: 100 % O2 Device: Endotracheal tube FiO2 (%): 35 % EtCO2 (mmHg): (!) 33 mmHg ETCO2 Alarm - High: 50 ETCO2 Alarm - Low: 20 Patient Position: Semi-fowlers Respiratory Assessment Assessment Type: Subsequent assessment Level of Consciousness: Responds to Voice Respiratory Pattern: Regular, Tachypneic Chest Assessment: Chest expansion symmetrical Bilateral Breath Sounds: Clear, Diminished Suctioning Suction: Oral, ET Tube Oral Suctioning/Secretions Oral Suction Type: Oral Oral Suction Device: Soft tip Oral Secretion Amount: Small Oral Secretion Color: Clear Oral Secretion Consistency: Thin Oral Suction Tolerance: Tolerated well Oral Suctioning Adverse Effects: None Airway Suctioning/Secretions Airway Suction Type: Endotracheal tube Airway Suction Device : Inline Airway Secretion Amount: Scant Airway Secretion Color: Clear, White Airway Secretion Consistency: Thin Airway Suction Tolerance: Tolerated well Airway Suctioning Adverse Effects: None Readings Vt (observed, mL): 446.9 mL Minute Ventilation (L/min): 6.38 L/min PIP Observed (cm H2O): 18.8 cm H2O Total Rate : 20 MAP (cm H2O): 11.6 CM H20 EtCO2 (mmHg): (!) 33 mmHg I:E Readin:1.5 Static Compliance (L/cm H2O): 40.8 Dynamic Compliance (L/cm H2O): 39.3 L/cm H2O Patient Active Problem List Diagnosis Contracture of finger joint Stroke ([facility]) Paroxysmal atrial fibrillation ([facility]) Bluish skin discoloration Diverticulosis of colon Gastritis and duodenitis GI bleed Mesenteric artery stenosis Cerebral infarction ([facility]) [place]omy[place], [place]ischemic [place] Atrial fibrillation with rapid ventricular response [place] Acute respiratory failure with hypoxia [place] ELLY (acute kidney injury) Scrotal swelling Colostomy present [place] Fall Traumatic rhabdomyolysis History of CVA (cerebrovascular accident) Hypotension Septic shock ([facility]) H/O unilateral orchiectomy H/O left inguinal hernia repair S/P partial resection of colon Last Chest XRAY: Reviewed Pulmonary History: Reviewed RT Reassessment Due In: 12 hours Mechanical Ventilator Broncho-Pulmonary Hygiene Breath Sounds Level 1: Slightly Diminished or clear Chest X-Ray Level 2: Mild consolidation and/or atelectasis Sputum Production Level 1: None or small amount of thin or watery secretions with suctioning History & Physical Level 1: None New onset of bronchitis or existing chronic pulmonary condition. * (not in an exacerbation) Patients Current Level & Intervention: Level 1: No BP hygiene indicated. Continue suctioning every 4 hours Problem: Alternate Airway Goal: ET tube will be managed safely Description: INTERVENTIONS 1. Assess and monitor insertion depth at lip/nare line 2. Utilize ETT securing device and change as necessary to ensure ETT is properly secured to patient 3. Keep resuscitation bag, mask, oxygen connection tubing, and extra ETT readily available; accompanying patient at all times 4. Reposition ET tube to opposite side of mouth 5. Support ventilator tubing to avoid pressure from drag of tubing 6. Monitor cuff pressure to maintain adequate seal Outcome: Progressing Note: Evaluation of progress towards goal: Reviewed and continued. * Plan of Care - Payal Barry RN - 01/15/2025 1:45 AM EDT Problem: Safety - Medical Restraint Goal: Remains free of injury from restraints (Restraint for Interference with Correctional Food Service Supervisor) Description: INTERVENTIONS: 1. Determine that other, less restrictive measures have been tried or would not be effective beforeapplying the restraint 2. Evaluate the patient's condition at the time of restraint application 3. Inform patient/family regarding the reason for restraint 4. Q2H: Monitor safety, Vital signs, psychosocial status, signs of injury, skin integrity, circulation, neurovascular status in affected extremities, respiratory status, comfort, nutrition and hydration, hygiene, ROM, elimination needs 5. Doctor will be notified of restraint 6. RN properly applies restraints per physician order Outcome: Progressing Note: Evaluation of progress towards goal: Restraints on. * Significant Event - Alis Weems MD - 01/15/2025 1:13 AM EDT Paged about AFib RVR with marginal blood pressure patient off levo now He has preserved LV ejection fraction and severe left atrial myopathy on echo review Kidney function better, give a dose of digoxin 500 mg IV Added Lopressor 2.5 mg IV p.r.n. with blood pressure parameters If pressor support needed favor phenylephrine instead of Levophed to avoid RVR and initiate amiodarone for AFib He has elevated CHADS-VASc score and prior CVA initiate heparin if no objection per surgical team Patient not seen nor examined (in a different facility) - ALIS WEEMS MD 01/15/25 1:18 AM * Plan of Care - Arthur Ayala RN - 01/14/2025 5:04 PM EDT Problem: Safety - Medical Restraint Goal: Remains free of injury from restraints (Restraint for Interference with Correctional Food Service Supervisor) Description: INTERVENTIONS: 1. Determine that other, less restrictive measures have been tried or would not be effective beforeapplying the restraint 2. Evaluate the patient's condition at the time of restraint application 3. Inform patient/family regarding the reason for restraint 4. Q2H: Monitor safety, Vital signs, psychosocial status, signs of injury, skin integrity, circulation, neurovascular status in affected extremities, respiratory status, comfort, nutrition and hydration, hygiene, ROM, elimination needs 5. Doctor will be notified of restraint 6. RN properly applies restraints per physician order Outcome: Progressing Note: Evaluation of progress towards goal: Assessment of clinincal indication of restraints being completed every 2 hours, ROM exercises being offered every 2 hours, circulation and skin integrity assessments being completed every 2 hours. * Plan of Care - Arthur Ayala RN - 01/14/2025 5:04 PM EDT Problem: Pain Goal: Patient goal is pain score less than 4, able to rest, and participant in treatment plan as appropriate Description: INTERVENTIONS: 1. Encourage patient or legal b2b sales representative to report early pain and ask [...] per policy 9. Teach patient or legal b2b sales representative interventions for comforting Outcome: Progressing Note: Evaluation of progress towards goal: Hourly rounding completed. Pain assessments completed per policy. Repositioning and comfort interventions being utilized, pharmacolgical interventions available if no improvement following non-pharmacological interventions. Problem: Safety Goal: Patient will be injury free during hospitalization Description: INTERVENTIONS: 1. Assess patient's risk for falls and implement fall prevention plan of care per policy 2. Provide and maintain a safe environment 3. Proper use of double Identifiers 4. Medication administration using the 5 rights 5. Hand hygiene 6. Specimens are labeled at the bedside 7. Instruct patient/ patient b2b sales representative about use of safety devices 8. Include patient/ patient b2b sales representative in decisions related to safety Outcome: Progressing Note: Evaluation of progress towards goal: Pt resting comfortably, fall risk precautions in place. Bed/chair alarm on, call light within reach. SR x 2. Clear area ensured if patient is able to ambulate. Hourly rounding being completed Problem: Infection Goal: Absence of infection during [...] hygiene technique. 7. Identify and instruct patient/patient b2b sales representative in use of appropriate isolation precautionsfor identified infection/symptoms. 8. Provide and discuss with patient/patient b2b sales representative on educational MDRO sheet. 9. Encourage and monitor nutritional status daily and consult substation design draftsperson if indicated. 10. Implement neutropenic guidelines as needed. Note: Evaluation of progress towards goal: Standard precautions in effect with hand hygiene upon entry and exit from room. Gloves and mask being worn continuously. documented in this encounter Plan of Treatment Upcoming Encounters Date Type Department Care Team (Late st Contact Info) Description 02/11/2025 10:15 AM EDT Office Visit [facility] [address] [id number] Kerrie Seals, ELEVATOR RUNNER-PRIVATE EQUITY ANALYST [address] [place] [address] 03/10/2025 2:30 PM EDT Office Visit [facility] [address] [place] [id number] Dar Gaines MD [address] [place] [address] Scheduled Orders Name Type Priority Associated Diagnoses Orde r Schedule Creatinine includes GFR, serum Lab Routine Perforated diverticulum of large intestine Weekly for 4 Occurrences starting 01/21/2025 until 01/21/2026 Liver panel Lab Routine Perforated diverticulum of large intestine Weekly for 4 Occurrences starting 01/21/2025 until 01/21/2026 Platelet count Lab Routine Perforated diverticulum of large intestine Weekly for 4 Occurrences starting 01/21/2025 until 01/21/2026 WBC Lab Routine Perforated diverticulum of large intestine Weekly for 4 Occurrences starting 01/21/2025 until 01/21/2026 PICC Line Removal Procedures Routine Perforated diverticulum of large intestine Expected: 02/16/2025 (Approximate), Expires: 02/21/2025 Scheduled Referrals Name Type Priority Associated Diagnoses Order Schedule [facility] [place], [place] Outpatient Referral Routine Encounter for ostomy nurse consultation [place] [place] Occurrences starting 01/20/2025 until 01/20/2026 [facility] [place], [place] Outpatient Referral Routine [place] [place] Occurrences starting 01/22/2025 until 01/22/2026 documented as of this encounter Goals Goal Patient Goal Type Associated Problems Recent Progress Patient-Stated? Author home General Yes Kerrie Acevedo, RN Note: Evaluation of progress towards goal: Will evaluate needs once patient is off ventilator documented as of this encounter Procedures Procedure Name Priority Date/Time Associated Diagnosis Comments CBC WITH AUTO DIFFERENTIAL Routine 01/22/2025 3:55 AM EDT MAGNESIUM Routine 01/22/2025 3:55 AM EDT COMPREHENSIVE METABOLIC PANEL Routine 01/22/2025 3:55 AM EDT CBC WITH AUTO DIFFERENTIAL Routine 01/21/2025 2:39 AM EDT MAGNESIUM Routine 01/21/2025 2:39 AM EDT COMPREHENSIVE METABOLIC PANEL Routine 01/21/2025 2:39 AM EDT HOME O2 EVALUATION Routine 01/20/2025 8: 12 PM EDT MAGNESIUM Routine 01/20/2025 11:44 AM EDT BRONCHOPULMONARY HYGIENE Routine 025 10:01 AM EDT OXYGEN THERAPY, HIGH FLOW NASAL CANNULA (HFNC) Routine 01/20/2025 8:00 AM EDT BRONCHOPULMONARY HYGIENE Routine 025 8:00 AM EDT CBC WITH AUTO DIFFERENTIAL Routine 01/20/2025 4:20 AM EDT MAGNESIUM Routine 01/20/2025 4:20 AM EDT COMPREHENSIVE METABOLIC PANEL Routine 01/20/2025 4:20 AM EDT XR CHEST 1 VW Routine 01/19/2025 3:26 PM EDT POTASSIUM Routine 01/19/2025 8:28 AM EDT CBC WITH AUTO DIFFERENTIAL Routine 01/19/2025 3:08 AM EDT MAGNESIUM Routine 01/19/2025 3:08 AM EDT COMPREHENSIVE METABOLIC PANEL Routine 01/19/2025 3:08 AM EDT HEPARIN ANTI XA, UNFRACTIONATED Routine 01/18/2025 11:53 AM EDT POTASSIUM Routine 01/18/2025 11:53 AM EDT MAGNESIUM Routine 01/18/2025 11:53 AM EDT CBC WITH AUTO DIFFERENTIAL Routine 01/18/2025 4:28 AM EDT HEPARIN ANTI XA, UNFRACTIONATED Routine 01/18/2025 4:28 AM EDT MAGNESIUM Routine 01/18/2025 4:28 AM EDT COMPREHENSIVE METABOLIC PANEL Routine 01/18/2025 4:28 AM EDT AMMONIA Routine 01/17/2025 12:12 PM EDT XR CHEST 1 VW STAT 01/17/2025 12:07 PM EDT BLOOD GAS, ARTERIAL Routine 01/17/2025 1 1:34 AM EDT CBC WITH AUTO DIFFERENTIAL Routine 01/17/2025 4:05 AM EDT HEPARIN ANTI XA, UNFRACTIONATED Routine 01/17/2025 4:05 AM EDT MYOGLOBIN, SERUM Routine 01/17/2025 4:05 AM EDT MAGNESIUM Routine 01/17/2025 4:05 AM EDT CK TOTAL Routine 01/17/2025 4:05 AM EDT COMPREHENSIVE METABOLIC PANEL Routine 01/17/2025 4:05 AM EDT HEPARIN ANTI XA, UNFRACTIONATED Routine 01/16/2025 10:00 PM EDT APTT Routine 01/16/2025 4:41 PM EDT PROTIME & INR Routine 01/16/2025 4:41 PM EDT PLATELET COUNT Routine 01/16/2025 4:41 PM EDT HEMOGLOBIN Routine 01/16/2025 4:41 PM EDT OXYGEN THERAPY, HIGH FLOW NASAL CANNULA (HFNC) Routine 01/16/2025 4:26 PM EDT OXYGEN THERAPY, HIGH FLOW NASAL CANNULA (HFNC) Routine 01/16/2025 4:26 PM EDT BRONCHOPULMONARY HYGIENE Routine 025 12:29 PM EDT BRONCHOPULMONARY HYGIENE Routine 025 12:29 PM EDT XR CHEST 1 VW Routine 01/16/2025 10:10 AM EDT CBC WITH AUTO DIFFERENTIAL Routine 01/16/2025 4:28 AM EDT MYOGLOBIN, SERUM Routine 01/16/2025 4:28 AM EDT MAGNESIUM Routine 01/16/2025 4:28 AM EDT CK TOTAL Routine 01/16/2025 4:28 AM EDT COMPREHENSIVE METABOLIC PANEL Routine 01/16/2025 4:28 AM EDT EXTUBATION Routine 01/15/2025 12:03 PM EDT XR CHEST 1 VW Routine 01/15/2025 7:00 AM EDT BLOOD GAS, ARTERIAL Routine 01/15/2025 4 :58 AM EDT CBC WITH AUTO DIFFERENTIAL Routine 01/15/2025 3:10 AM EDT MYOGLOBIN, SERUM Routine 01/15/2025 3:10 AM EDT MAGNESIUM Routine 01/15/2025 3:10 AM EDT CK TOTAL Routine 01/15/2025 3:10 AM EDT COMPREHENSIVE METABOLIC PANEL Routine 01/15/2025 3:10 AM EDT XR CHEST 1 VW STAT 01/14/2025 8:42 PM EDT VENTILATION Routine 01/14/2025 3:25 PM EDT VENTILATION Routine 01/14/2025 3:25 PM EDT VENTILATION Routine 01/14/2025 3:25 PM EDT VENTILATION Routine 01/14/2025 3:25 PM EDT VENTILATION Routine 01/14/2025 3:25 PM EDT documented in this encounter Results * (ABNORMAL) CBC auto differential (01/22/2025 3:55 AM EDT) [facility] Signature WBC 12.5(H) 4 - 11 x10E9/L 01/22/2025 4:36 AM [facility] RBC Count 3.49(L) 4.1 - 5.7 X10E12/L 01/22/2025 4:36 AM [facility] Hemoglobin 11.0(L) 13 - 17 g/dL 01/22/2025 4:36 AM [facility] Hematocrit 32.7(L) 39 - 50 % 01/22/2025 4:36 AM [facility] MCV 94 80 - 100 fL 01/22/2025 4:36 AM [facility] MCH 31.5 27 - 34 pg 01/22/2025 4:36 AM [facility] MCHC 33.6 32 - 36 g/dL 01/22/2025 4:36 AM [facility] RDW 14.6 11.5 - 15 % 01/22/2025 4:36 AM [facility] Platelet Count 322 150 - 450 X10E9/L 01/22/2025 4:36 AM [facility] MPV 7.6 7 - 12 fL 01/22/2025 4:36 AM [facility] Metamyelocytes % 3 % 01/23/20 25 4:36 AM [facility] Comment:This is an appended report. These results have been appended to a previously preliminary verified report. Neutrophils % 75 % 01/22/2025 4:36 AM [facility] Comment:This is an appended report. These results have been appended to a previously preliminary verified report. Lymphocytes % 9 % 01/22/2025 4:36 AM [facility] Comment:This is an appended report. These results have been appended to a previously preliminary verified report. Monocytes % 7 % 01/22/2025 4:36 AM [facility] Comment:This is an appended report. These results have been appended to a previously preliminary verified report. Eosinophils % 6 % 01/22/2025 4:36 AM [facility] Comment:This is an appended report. These results have been appended to a previously preliminary verified report. Neutrophils Absolute (M) 9.3(H) 1.5 - 6.6 10*3/uL 01/22/2025 4:36 AM [facility] Comment:This is an appended report. These results have been appended to a previously preliminary verified report. Lymphocytes Absolute 1.1 1.0 - 3.5 10*3/uL 01/22/2025 4:36 AM [facility] Comment:This is an appended report. These results have been appended to a previously preliminary verified report. Monocytes Absolute 0.9 0.0 - 0.9 10*3/uL 01/22/2025 4:36 AM [facility] Comment:This is an appended report. These results have been appended to a previously preliminary verified report. Eosinophils Absolute 0.8(H) 0.0 - 0.4 10*3/uL 01/22/2025 4:36 AM [facility] Comment:This is an appended report. These results have been appended to a previously preliminary verified report. RBC Morphology Reviewed 01/22/2025 4:36 AM [facility] Comment:This is an appended report. These results have been appended to a previously preliminary verified report. Differential Type MANUAL DIFFERENTIAL 01/22/2025 4:36 AM [facility] Comment:This is an appended report. These results have been appended to a previously preliminary verified report. Blood Venous blood / Unknown 01/22/2025 3:55 AM EDT 01/22/2025 3:56 AM EDT us Brenda Millan [employer]ATOR [employer] LAB BLOOD ORDERABLES Fi nal Result [facility] [address] [place] [address], * Magnesium (01/22/2025 3:55 AM EDT) MAGNESIUM 1.8 1.8 - 2.6 mg/dL 01/22/2025 4:19 AM [facility] Blood Venous blood / Unknown 01/22/2025 3:55 AM EDT 01/22/2025 3:56 AM EDT us Brenda Millan E[employer]LY[employer] LAB BLOOD ORDERABLES Fi nal Result [facility] [address] [place] [address], [place] * (ABNORMAL) Comprehensive metabolic panel (01/22/2025 3:55 AM EDT) SODIUM 137 134 - 146 mmol/L 01/22/2025 4:19 AM [facility] POTASSIUM 4.2 3.5 - 5.0 mmol/L 01/22/2025 4:19 AM [facility] CHLORIDE 101 98 - 109 mmol/L 01/22/2025 4:19 AM [facility] CARBON DIOXIDE 31 22 - 32 mmol/L 01/22/2025 4:19 AM [facility] ANION GAP 5 5 - 15 mmol/L 01/22/2025 4:19 AM [facility] BLOOD UREA NITROGEN 24 5 - 27 mg/dL 01/22/2025 4:19 AM [facility] CREATININE 0.96 0.70 - 1.20 mg/dL 01/22/2025 4:19 AM [facility] Comment:METHOD TRACEABLE TO IDMS STANDARD GLUCOSE 118(H) 65 - 99 mg/dL 01/22/2025 4:19 AM [facility] CALCIUM 7.8(L) 8.5 - 10.5 mg/dL 01/22/2025 4:19 AM [facility] TOTAL PROTEIN 5.2(L) 6.0 - 8.0 g/dL 01/22/2025 4:19 AM [facility] ALBUMIN 2.4(L) 3.2 - 5.3 g/dL 01/22/2025 4:19 AM [facility] ALKALINE PHOSPHATASE 51 39 - 130 U/L 01/22/2025 4:19 AM [facility] AST 35 <=41 U/L 01/22/2025 4:19 AM [facility] ALT 35 <=40 U/L 01/22/2025 4:19 AM [facility] BILIRUBIN,TOTAL 0.6 0.3 - 1.2 mg/dL 01/22/2025 4:19 AM [facility] EGFR Non-Race Dependent 83 >=60 ml/min/1.7 3sq.m 01/22/2025 4:19 AM [facility] Comment: eGFR not reported due to non-numeric value for Creatinine. Reported eGFR is based on the CKD-EPI 2020 equation that does not use a race coefficient. Blood Venous blood / Unknown 01/22/2025 3:55 AM EDT 01/22/2025 3:56 AM EDT us Brenda Millan [employer] LAB BLOOD ORDERABLES Fi nal Result [facility] [address] [place] [address], * (ABNORMAL) CBC auto differential (01/21/2025 2:39 AM EDT) WBC 15.4(H) 4 - 11 x10E9/L 01/21/2025 5:00 AM [facility] RBC Count 3.55(L) 4.1 - 5.7 X10E12/L 01/21/2025 5:00 AM [facility] Hemoglobin 11.2(L) 13 - 17 g/dL 01/21/2025 5:00 AM [facility] Hematocrit 33.3(L) 39 - 50 % 01/21/2025 5:00 AM [facility] MCV 94 80 - 100 fL 01/21/2025 5:00 AM [facility] MCH 31.4 27 - 34 pg 01/21/2025 5:00 AM [facility] MCHC 33.5 32 - 36 g/dL 01/21/2025 5:00 AM [facility] RDW 14.6 11.5 - 15 % 01/21/2025 5:00 AM [facility] Platelet Count 339 150 - 450 X10E9/L 01/21/2025 5:00 AM [facility] MPV 7.6 7 - 12 fL 01/21/2025 5:00 AM [facility] Bands % 1 % 01/21/2025 5:00 AM [facility] Comment:This is an appended report. These results have been appended to a previously preliminary verified report. Neutrophils % 89 % 01/21/2025 5:00 AM [facility] Comment:This is an appended report. These results have been appended to a previously preliminary verified report. Lymphocytes % 5 % 01/21/2025 5:00 AM [facility] Comment:This is an appended report. These results have been appended to a previously preliminary verified report. Monocytes % 2 % 01/21/2025 5:00 AM [facility] Comment:This is an appended report. These results have been appended to a previously preliminary verified report. Eosinophils % 3 % 01/21/2025 5:00 AM [facility] Comment:This is an appended report. These results have been appended to a previously preliminary verified report. Neutrophils Absolute (M) 13.8(H) 1.5 - 6.6 10*3/uL 01/21/2025 5:00 AM [facility] Comment:This is an appended report. These results have been appended to a previously preliminary verified report. Lymphocytes Absolute 0.8(L) 1.0 - 3.5 10*3/uL 01/21/2025 5:00 AM [facility] Comment:This is an appended report. These results have been appended to a previously preliminary verified report. Monocytes Absolute 0.3 0.0 - 0.9 10*3/uL 01/21/2025 5:00 AM [facility] Comment:This is an appended report. These results have been appended to a previously preliminary verified report. Eosinophils Absolute 0.5(H) 0.0 - 0.4 10*3/uL 01/21/2025 5:00 AM [facility] Comment:This is an appended report. These results have been appended to a previously preliminary verified report. RBC Morphology Normal 01/21/2025 5:00 AM [facility] Comment:This is an appended report. These results have been appended to a previously preliminary verified report. Differential Type MANUAL DIFFERENTIAL 01/21/2025 5:00 AM [facility] Comment:This is an appended report. These results have been appended to a previously preliminary verified report. Blood Venous blood / Unknown 01/21/2025 2:39 AM EDT 01/21/2025 2:43 AM EDT [facility] [employer]LY[employer] LAB BLOOD ORDERABLES Fi nal Result Performing Organization Address City/[facility]/ZIP Co de Phone Number [address] [place] [address], [place] * Magnesium (01/21/2025 2:39 AM EDT) MAGNESIUM 2.0 1.8 - 2.6 mg/dL 01/21/2025 3:03 AM EDT [facility] Blood Venous blood / Unknown 01/21/2025 2:39 AM EDT 01/21/2025 2:43 AM EDT [facility] [employer]-[facility] LAB BLOOD ORDERABLES Fi nal Result Performing Organization Address [facility]/ZIP Co de Phone Number [address] [place] [address], [place] * (ABNORMAL) Comprehensive metabolic panel (01/21/2025 2:39 AM EDT) SODIUM 139 134 - 146 mmol/L 01/21/2025 3:03 AM [facility] POTASSIUM 4.2 3.5 - 5.0 mmol/L 01/21/2025 3:03 AM [facility] CHLORIDE 98 98 - 109 mmol/L 01/21/2025 3:03 AM [facility] CARBON DIOXIDE 32 22 - 32 mmol/L 01/21/2025 3:03 AM [facility] ANION GAP 9 5 - 15 mmol/L 01/21/2025 3:03 AM [facility] BLOOD UREA NITROGEN 29(H) 5 - 27 mg/dL 01/21/2025 3:03 AM [facility] CREATININE 0.90 0.70 - 1.20 mg/dL 01/21/2025 3:03 AM [facility] Comment:METHOD TRACEABLE TO IDMS STANDARD GLUCOSE 111(H) 65 - 99 mg/dL 01/21/2025 3:03 AM T [facility] CALCIUM 8.0(L) 8.5 - 10.5 mg/dL 01/21/2025 3:03 AM [facility] TOTAL PROTEIN 5.2(L) 6.0 - 8.0 g/dL 01/21/2025 3:03 AM [facility] ALBUMIN 2.4(L) 3.2 - 5.3 g/dL 01/21/2025 3:03 AM [facility] ALKALINE PHOSPHATASE 52 39 - 130 U/L 01/21/2025 3:03 AM [facility] AST 49(H) <=41 U/L 01/21/2025 3:03 AM [facility] ALT 40 <=40 U/L 01/21/2025 3:03 AM [facility] BILIRUBIN,TOTAL 0.8 0.3 - 1.2 mg/dL 01/21/2025 3:03 AM [facility] EGFR Non-Race Dependent 90 >=60 ml/min/1.7 3sq.m 01/21/2025 3:03 AM [facility] Comment: eGFR not reported due to non-numeric value for Creatinine. EGFR not calculated due to patient's gender not being defined. Reported eGFR is based on the CKD-EPI 2020 equation that does not use a race coefficient. Blood Venous blood / Unknown 01/21/2025 2:39 AM EDT 01/21/2025 2:43 AM EDT us Brenda Millan [employer]NALYST LAB BLOOD ORDERABLES Fi nal Result [facility] [address] [place] [address], * Magnesium (01/20/2025 11:44 AM EDT) MAGNESIUM 2.3 1.8 - 2.6 mg/dL 01/20/2025 12:27 PM EDT [facility] Blood Venous blood / Unknown Central Line / Unknown 01/20/2025 11:44 AM EDT 01/20/2025 12:13 PM EDT us Chyna Sanchez MD LAB BLOOD ORDERABLES Final Res ult [facility] [address] [place] [address], [place] * (ABNORMAL) CBC auto differential (01/20/2025 4:20 AM EDT) WBC 14.6(H) 4 - 11 x10E9/L 01/20/2025 6:03 AM [facility] RBC Count 3.64(L) 4.1 - 5.7 X10E12/L 01/20/2025 6:03 AM [facility] Hemoglobin 11.4(L) 13 - 17 g/dL 01/20/2025 6:03 AM [facility] Hematocrit 34.0(L) 39 - 50 % 01/20/2025 6:03 AM [facility] MCV 93 80 - 100 fL 01/20/2025 6:03 AM [facility] MCH 31.2 27 - 34 pg 01/20/2025 6:03 AM [facility] MCHC 33.4 32 - 36 g/dL 01/20/2025 6:03 AM [facility] RDW 14.3 11.5 - 15 % 01/20/2025 6:03 AM [facility] Platelet Count 334 150 - 450 X10E9/L 01/20/2025 6:03 AM [facility] MPV 7.7 7 - 12 fL 01/20/2025 6:03 AM [facility] Neutrophils % 89 % 01/20/2025 6:03 AM [facility] Comment:This is an appended report. These results have been appended to a previously preliminary verified report. Lymphocytes % 5 % 01/20/2025 6:03 AM [facility] Comment:This is an appended report. These results have been appended to a previously preliminary verified report. Monocytes % 4 % 01/20/2025 6:03 AM [facility] Comment:This is an appended report. These results have been appended to a previously preliminary verified report. Eosinophils % 2 % 01/20/2025 6:03 AM [facility] Comment:This is an appended report. These results have been appended to a previously preliminary verified report. Neutrophils Absolute (M) 13.0(H) 1.5 - 6.6 10*3/uL 01/20/2025 6:03 AM [facility] Comment:This is an appended report. These results have been appended to a previously preliminary verified report. Lymphocytes Absolute 0.7(L) 1.0 - 3.5 10*3/uL 01/20/2025 6:03 AM [facility] Comment:This is an appended report. These results have been appended to a previously preliminary verified report. Monocytes Absolute 0.6 0.0 - 0.9 10*3/uL 01/20/2025 6:03 AM [facility] Comment:This is an appended report. These results have been appended to a previously preliminary verified report. Eosinophils Absolute 0.3 0.0 - 0.4 10*3/uL 01/20/2025 6:03 AM [facility] Comment:This is an appended report. These results have been appended to a previously preliminary verified report. RBC Morphology Normal 01/20/2025 6:03 AM [facility] Comment:This is an appended report. These results have been appended to a previously preliminary verified report. Differential Type MANUAL DIFFERENTIAL 01/20/2025 6:03 AM [facility] Comment:This is an appended report. These results have been appended to a previously preliminary verified report. Blood Venous blood / Unknown 01/20/2025 4:20 AM EDT 01/20/2025 4:25 AM EDT us Brenda Millan ELEVATOR [employer]NER-[employer] ANALYST LAB BLOOD ORDERABLES Fi nal Result [facility] [address] [place] [address], * Magnesium (01/20/2025 4:20 AM EDT) MAGNESIUM 1.9 1.8 - 2.6 mg/dL 01/20/2025 5:18 AM [facility] Blood Venous blood / Unknown 01/20/2025 4:20 AM EDT 01/20/2025 4:25 AM EDT us Brenda Millan ELEVATOR [employer]NALYST LAB BLOOD ORDERABLES Fi nal Result [facility] [address] [place] [address], * (ABNORMAL) Comprehensive metabolic panel (01/20/2025 4:20 AM EDT) SODIUM 139 134 - 146 mmol/L 01/20/2025 5:18 AM [facility] POTASSIUM 4.1 3.5 - 5.0 mmol/L 01/20/2025 5:18 AM [facility] CHLORIDE 98 98 - 109 mmol/L 01/20/2025 5:18 AM [facility] CARBON DIOXIDE 33(H) 22 - 32 mmol/L 01/20/2025 5:18 AM [facility] ANION GAP 8 5 - 15 mmol/L 01/20/2025 5:18 AM [facility] BLOOD UREA NITROGEN 26 5 - 27 mg/dL 01/20/2025 5:18 AM [facility] CREATININE 0.87 0.70 - 1.20 mg/dL 01/20/2025 5:18 AM [facility] Comment:METHOD TRACEABLE TO IDMS STANDARD GLUCOSE 114(H) 65 - 99 mg/dL 01/20/2025 5:18 AM [facility] CALCIUM 8.0(L) 8.5 - 10.5 mg/dL 01/20/2025 5:18 AM [facility] TOTAL PROTEIN 5.1(L) 6.0 - 8.0 g/dL 01/20/2025 5:18 AM [facility] ALBUMIN 2.4(L) 3.2 - 5.3 g/dL 01/20/2025 5:18 AM [facility] ALKALINE PHOSPHATASE 52 39 - 130 U/L 01/20/2025 5:18 AM [facility] AST 41 <=41 U/L 01/20/2025 5:18 AM EDT [facility] ALT 32 <=40 U/L 01/20/2025 5:18 AM EDT [facility] BILIRUBIN,TOTAL 0.7 0.3 - 1.2 mg/dL 01/20/2025 5:18 AM EDT [facility] EGFR Non-Race Dependent >90 >=60 ml/min/1.7 3sq.m 01/20/2025 5:18 AM EDT [facility] Comment: eGFR not reported due to non-numeric value for Creatinine. EGFR not calculated due to patient's gender not being defined. Reported eGFR is based on the CKD-EPI 2020 equation that does not use a race coefficient. Blood Venous blood / Unknown 01/20/2025 4:20 AM EDT 01/20/2025 4:25 AM EDT us Brendapretty Millan E[employer]ATOR [employer]NER-[employer]NALY[employer] LAB BLOOD ORDERABLES Fi nal Result [facility] [address] [place] [address], * X-ray chest 1 view (01/19/2025 3:26 PM EDT) Anatomical Region Laterality Modality Body, Chest N/A Computed Radiogr aphy 01/19/2025 3:33 PM EDT Narrative 01/19/2025 3:34 PM EDT CLINICAL HISTORY: Respiratory failure Comparison: 01/17/2025 Views: 1 view FINDINGS: * Left pleural effusion with atelectasis. This may be slightly improved. Otherwise no new infiltrate. Heart size stable. Central line overlies SVC. IMPRESSION: * Gradually improving chest as above. Finalized by Fernando Champagne MD on 01/19/2025 3:34 PM Procedure Note Fernando Champagne MD - 01/19/2025 CLINICAL HISTORY: Respiratory failure Comparison: 01/17/2025 Views: 1 view FINDINGS: * Left pleural effusion with atelectasis. This may be slightly improved.Otherwise no new infiltrate. Heart size stable. Central line overliesSVC. IMPRESSION: * Gradually improving chest as above. Finalized by Fernando Champagne MD on 01/19/2025 3:34 PM us Travis Agrawal MD IMG DIAGNOSTIC IMAGING ORDERABLE S Final Result * Potassium (01/19/2025 8:28 AM EDT) [facility] POTASSIUM 3.9 3.5 - 5.0 mmol/L 01/19/2025 8:58 AM EDT [facility] Blood Venous blood / Unknown Central Line / Unknown 01/19/2025 8:28 AM EDT 01/19/2025 8:44 AM EDT us Chyna Sanchez MD LAB BLOOD ORDERABLES Final Res ult [facility] [address] [place] [address], [place] * (ABNORMAL) CBC auto differential (01/19/2025 3:08 AM EDT) [facility] WBC 16.7(H) 4 - 11 x10E9/L 01/19/2025 4:10 AM [facility] RBC Count 3.58(L) 4.1 - 5.7 X10E12/L 01/19/2025 4:10 AM [facility] Hemoglobin 11.2(L) 13 - 17 g/dL 01/19/2025 4:10 AM [facility] Hematocrit 33.2(L) 39 - 50 % 01/19/2025 4:10 AM [facility] MCV 93 80 - 100 fL 01/19/2025 4:10 AM [facility] MCH 31.3 27 - 34 pg 01/19/2025 4:10 AM [facility] MCHC 33.7 32 - 36 g/dL 01/19/2025 4:10 AM [facility] RDW 14.1 11.5 - 15 % 01/19/2025 4:10 AM [facility] Platelet Count 340 150 - 450 X10E9/L 01/19/2025 4:10 AM [facility] MPV 7.7 7 - 12 fL 01/19/2025 4:10 AM [facility] Metamyelocytes % 1 % 01/20/20 25 4:10 AM [facility] Comment:This is an appended report. These results have been appended to a previously preliminary verified report. Bands % 2 % 01/19/2025 4:10 AM [facility] Comment:This is an appended report. These results have been appended to a previously preliminary verified report. Neutrophils % 87 % 01/19/2025 4:10 AM [facility] Comment:This is an appended report. These results have been appended to a previously preliminary verified report. Lymphocytes % 5 % 01/19/2025 4:10 AM [facility] Comment:This is an appended report. These results have been appended to a previously preliminary verified report. Monocytes % 4 % 01/19/2025 4:10 AM [facility] Comment:This is an appended report. These results have been appended to a previously preliminary verified report. Eosinophils % 1 % 01/19/2025 4:10 AM [facility] Comment:This is an appended report. These results have been appended to a previously preliminary verified report. Neutrophils Absolute (M) 14.8(H) 1.5 - 6.6 10*3/uL 01/19/2025 4:10 AM [facility] Comment:This is an appended report. These results have been appended to a previously preliminary verified report. Lymphocytes Absolute 0.8(L) 1.0 - 3.5 10*3/uL 01/19/2025 4:10 AM [facility] Comment:This is an appended report. These results have been appended to a previously preliminary verified report. Monocytes Absolute 0.7 0.0 - 0.9 10*3/uL 01/19/2025 4:10 AM [facility] Comment:This is an appended report. These results have been appended to a previously preliminary verified report. Eosinophils Absolute 0.2 0.0 - 0.4 10*3/uL 01/19/2025 4:10 AM [facility] Comment:This is an appended report. These results have been appended to a previously preliminary verified report. RBC Morphology Normal 01/19/2025 4:10 AM EDT [facility] Comment:This is an appended report. These results have been appended to a previously preliminary verified report. Differential Type MANUAL DIFFERENTIAL 01/19/2025 4:10 AM EDT [facility] Comment:This is an appended report. These results have been appended to a previously preliminary verified report. Blood Venous blood / Unknown 01/19/2025 3:08 AM EDT 01/19/2025 3:20 AM EDT Brenda Monty ELEVATOR [employer]NER-[employer]NALY[employer] LAB BLOOD ORDERABLES Fi nal Result Performing Organization Address [facility]/ZIP Co de Phone Number [address] [place] [address], [place] * Magnesium (01/19/2025 3:08 AM EDT) MAGNESIUM 2.0 1.8 - 2.6 mg/dL 01/19/2025 3:37 AM EDT [facility] Blood Venous blood / Unknown 01/19/2025 3:08 AM EDT 01/19/2025 3:20 AM EDT Brenda Monty ELEVATOR [employer]NER-[employer]QU[employer] ANALYST LAB BLOOD ORDERABLES Fi nal Result Performing Organization Address [facility]/ZIP Co de Phone Number [address] [place] [address], [place] * (ABNORMAL) Comprehensive metabolic panel (01/19/2025 3:08 AM EDT) SODIUM 139 134 - 146 mmol/L 01/19/2025 3:37 AM EDT [facility] POTASSIUM 3.6 3.5 - 5.0 mmol/L 01/19/2025 3:37 AM T [facility] CHLORIDE 99 98 - 109 mmol/L 01/19/2025 3:37 AM T [facility] CARBON DIOXIDE 33(H) 22 - 32 mmol/L 01/19/2025 3:37 AM EDT [facility] ANION GAP 7 5 - 15 mmol/L 01/19/2025 3:37 AM EDT [facility] BLOOD UREA NITROGEN 29(H) 5 - 27 mg/dL 01/19/2025 3:37 AM [facility] CREATININE 0.94 0.70 - 1.20 mg/dL 01/19/2025 3:37 AM [facility] Comment:METHOD TRACEABLE TO IDIN STANDARD GLUCOSE 111(H) 65 - 99 mg/dL 01/19/2025 3:37 AM [facility] CALCIUM 8.0(L) 8.5 - 10.5 mg/dL 01/19/2025 3:37 AM [facility] TOTAL PROTEIN 5.1(L) 6.0 - 8.0 g/dL 01/19/2025 3:37 AM [facility] ALBUMIN 2.4(L) 3.2 - 5.3 g/dL 01/19/2025 3:37 AM [facility] ALKALINE PHOSPHATASE 48 39 - 130 U/L 01/19/2025 3:37 AM [facility] AST 18 <=41 U/L 01/19/2025 3:37 AM [facility] ALT 28 <=40 U/L 01/19/2025 3:37 AM [facility] BILIRUBIN,TOTAL 0.5 0.3 - 1.2 mg/dL 01/19/2025 3:37 AM [facility] EGFR Non-Race Dependent 86 >=60 ml/min/1.7 3sq.m 01/19/2025 3:37 AM [facility] Comment: eGFR not reported due to non-numeric value for Creatinine. EGFR not calculated due to patient's gender not being defined. Reported eGFR is based on the CKD-EPI 202 equation that does not use a race coefficient. Blood Venous blood / Unknown 01/19/2025 3:08 AM EDT 01/19/2025 3:20 AM EDT us Brenda Millan ELEVATOR [employer]NER-[employer]QU[employer] ANALYST LAB BLOOD ORDERABLES Fi nal Result [facility] [address] [place] [address], [place] * Potassium (01/18/2025 11:53 AM EDT) POTASSIUM 4.3 3.5 - 5.0 mmol/L 01/18/2025 12:23 PM EDT [facility] Blood Venous blood / Unknown Central Line / Unknown 01/18/2025 11:53 AM EDT 01/18/2025 12:03 PM EDT us Chyna Sanchez MD LAB BLOOD ORDERABLES Final Res ult Performing Organization Address [facility]/ZIP Co de Phone Number [address] [place] [address], [place] * Magnesium (01/18/2025 11:53 AM EDT) MAGNESIUM 2.3 1.8 - 2.6 mg/dL 01/18/2025 12:24 PM EDT [facility] Blood Venous blood / Unknown Central Line / Unknown 01/18/2025 11:53 AM EDT 01/18/2025 12:03 PM EDT us Chyna Sanchez MD LAB BLOOD ORDERABLES Final Res ult Performing Organization Address [facility] de Phone Number [address] [place] [address], [place] * Anti XA unfractionated heparin (01/18/2025 11:53 AM EDT) ANTI XA UFH 0.32 0.30 - 0.70 IU/mL 01/18/2025 12:39 PM EDT [facility] Comment: Optimal time for testing is 6 hrs post dosage This test is specific for monitoring patients on UFH, and is not recommended for use with other Anti-Xa medications. Blood Venous blood / Unknown Central Line / Unknown 01/18/2025 11:53 AM EDT 01/18/2025 12:03 PM EDT Chyna Sanchez MD LAB BLOOD ORDERABLES Final Res ult Performing Organization Address [facility]/ZIP Co de Phone Number [address] [place] [address], [place] * (ABNORMAL) CBC auto differential (01/18/2025 4:28 AM EDT) WBC 19.0(H) 4 - 11 x10E9/L 01/18/2025 5:57 AM [facility] RBC Count 3.82(L) 4.1 - 5.7 X10E12/L 01/18/2025 5:57 AM [facility] Hemoglobin 12.0(L) 13 - 17 g/dL 01/18/2025 5:57 AM [facility] Hematocrit 36.1(L) 39 - 50 % 01/18/2025 5:57 AM [facility] MCV 95 80 - 100 fL 01/18/2025 5:57 AM [facility] MCH 31.5 27 - 34 pg 01/18/2025 5:57 AM [facility] MCHC 33.4 32 - 36 g/dL 01/18/2025 5:57 AM [facility] RDW 14.5 11.5 - 15 % 01/18/2025 5:57 AM [facility] Platelet Count 393 150 - 450 X10E9/L 01/18/2025 5:57 AM [facility] MPV 8.2 7 - 12 fL 01/18/2025 5:57 AM [facility] Myelocyte % 1 % 01/18/2025 5:57 AM [facility] Comment:This is an appended report. These results have been appended to a previously preliminary verified report. Bands % 2 % 01/18/2025 5:57 AM [facility] Comment:This is an appended report. These results have been appended to a previously preliminary verified report. Neutrophils % 85 % 01/18/2025 5:57 AM [facility] Comment:This is an appended report. These results have been appended to a previously preliminary verified report. Lymphocytes % 9 % 01/18/2025 5:57 AM [facility] Comment:This is an appended report. These results have been appended to a previously preliminary verified report. Monocytes % 4 % 01/18/2025 5:57 AM [facility] Comment:This is an appended report. These results have been appended to a previously preliminary verified report. Neutrophils Absolute (M) 16.5(H) 1.5 - 6.6 10*3/uL 01/18/2025 5:57 AM [facility] Comment:This is an appended report. These results have been appended to a previously preliminary verified report. Lymphocytes Absolute 1.6 1.0 - 3.5 10*3/uL 01/18/2025 5:57 AM [facility] Comment:This is an appended report. These results have been appended to a previously preliminary verified report. Monocytes Absolute 0.7 0.0 - 0.9 10*3/uL 01/18/2025 5:57 AM [facility] Comment:This is an appended report. These results have been appended to a previously preliminary verified report. RBC Morphology Normal 01/18/2025 5:57 AM [facility] Comment:This is an appended report. These results have been appended to a previously preliminary verified report. Differential Type CELLAVISION DIFFERENTIAL 01/18/2025 5:57 AM [facility] Comment:This is an appended report. These results have been appended to a previously preliminary verified report. Blood Venous blood / Unknown 01/18/2025 4:28 AM EDT 01/18/2025 4:31 AM EDT Brenda Millan ELEVATOR [employer]NER-[employer]QU[employer] ANALYST LAB BLOOD ORDERABLES Fi nal Result [facility] [address] [place] [address], * Magnesium (01/18/2025 4:28 AM EDT) MAGNESIUM 1.8 1.8 - 2.6 mg/dL 01/18/2025 4:56 AM [facility] Blood Venous blood / Unknown 01/18/2025 4:28 AM EDT 01/18/2025 4:31 AM EDT Brenda Millan ELEVATOR [employer]NER-[employer]QU[employer] ANALYST LAB BLOOD ORDERABLES Fi nal Result [facility] [address] [place] [address], * (ABNORMAL) Comprehensive metabolic panel (01/18/2025 4:28 AM EDT) SODIUM 141 134 - 146 mmol/L 01/18/2025 4:56 AM [facility] POTASSIUM 3.7 3.5 - 5.0 mmol/L 01/18/2025 4:56 AM [facility] CHLORIDE 98 98 - 109 mmol/L 01/18/2025 4:56 AM [facility] CARBON DIOXIDE 33(H) 22 - 32 mmol/L 01/18/2025 4:56 AM [facility] ANION GAP 10 5 - 15 mmol/L 01/18/2025 4:56 AM [facility] BLOOD UREA NITROGEN 36(H) 5 - 27 mg/dL 01/18/2025 4:56 AM [facility] CREATININE 0.98 0.70 - 1.20 mg/dL 01/18/2025 4:56 AM [facility] Comment:METHOD TRACEABLE TO IDMS STANDARD GLUCOSE 126(H) 65 - 99 mg/dL 01/18/2025 4:56 AM [facility] CALCIUM 8.4(L) 8.5 - 10.5 mg/dL 01/18/2025 4:56 AM [facility] TOTAL PROTEIN 5.5(L) 6.0 - 8.0 g/dL 01/18/2025 4:56 AM [facility] ALBUMIN 2.5(L) 3.2 - 5.3 g/dL 01/18/2025 4:56 AM [facility] ALKALINE PHOSPHATASE 60 39 - 130 U/L 01/18/2025 4:56 AM [facility] AST 24 <=41 U/L 01/18/2025 4:56 AM [facility] ALT 35 <=40 U/L 01/18/2025 4:56 AM [facility] BILIRUBIN,TOTAL 0.6 0.3 - 1.2 mg/dL 01/18/2025 4:56 AM [facility] EGFR Non-Race Dependent 81 >=60 ml/min/1.7 3sq.m 01/18/2025 4:56 AM EDT [facility] Comment: eGFR not reported due to non-numeric value for Creatinine. EGFR not calculated due to patient's gender not being defined. Reported eGFR is based on the CKD-EPI 2020 equation that does not use a race coefficient. Blood Venous blood / Unknown 01/18/2025 4:28 AM EDT 01/18/2025 4:31 AM EDT Brenda Millan ELEVATOR [employer]NER-[employer]QU[employer] ANALYST LAB BLOOD ORDERABLES Fi nal Result Performing Organization Address [facility] Co de Phone Number [address] [place] [address], [place] * (ABNORMAL) Anti XA unfractionated heparin (01/18/2025 4:28 AM EDT) ANTI XA UFH 0.24(L) 0.30 - 0.70 IU/mL 01/18/2025 4:58 AM EDT [facility] Comment: Optimal time for testing is 6 hrs post dosage This test is specific for monitoring patients on UFH, and is not recommended for use with other Anti-Xa medications. Blood Venous blood / Unknown 01/18/2025 4:28 AM EDT 01/18/2025 4:31 AM EDT Javad Horvath MD LAB BLOOD ORDERABLES Final Resu lt Performing Organization Address [facility]/ZIP Co de Phone Number [address] [place] [address], [place] * Ammonia (01/17/2025 12:12 PM EDT) AMMONIA 20 11 - 35 umol/L 01/17/2025 12:38 PM EDT [facility] Blood Venous blood / Unknown 01/17/2025 12:12 PM EDT 01/17/2025 12:19 PM EDT Brenda Millan ELEVATOR [employer]NER-[employer]QU[employer] ANALYST LAB BLOOD ORDERABLES Fi nal Result [facility] [address] [place] [address], [place] * X-ray chest 1 view (01/17/2025 12:07 PM EDT) Anatomical Region Laterality Modality Body, Chest N/A Computed Radiogr aphy 01/17/2025 12:0 8 PM EDT Narrative 01/17/2025 12:10 PM EDT CLINICAL INFORMATION: Shortness of breath COMPARISON: Chest radiograph dated 01/16/2025. VIEWS: 1. FINDINGS: Interval worsening with large left basilar infiltrate and atelectasis. Probable moderate left pleural effusion. Cardiac and mediastinal shadows are normal. No pneumothorax. No free air below the diaphragm. IMPRESSION: Interval worsening with large left basilar infiltrate and atelectasis. Probable moderate left pleural effusion. Finalized by Ellen Angelo MD on 01/17/2025 12:10 PM Procedure Note Ellen Angelo MD - 01/17/2025 CLINICAL INFORMATION: Shortness of breath COMPARISON: Chest radiograph dated 01/16/2025. VIEWS: 1. FINDINGS: Interval worsening with large left basilar infiltrate and atelectasis.Probable moderate left pleural effusion. Cardiac and mediastinal shadows are normal. No pneumothorax. No free airbelow the diaphragm. IMPRESSION: Interval worsening with large left basilar infiltrate and atelectasis.Probable moderate left pleural effusion. Finalized by Ellen Angelo MD on 01/17/2025 12:10 PM us Travis Agrawal MD IM DIAGNOSTIC IMAGING ORDERABLE S Final Result * (ABNORMAL) Blood Gas, Arterial (01/17/2025 11:34 AM EDT) Sample type ARTERIAL 01/17/2025 12:00 PM EDT [facility] pH, Arterial 7.394 7.350 - 7.450 01/17/2025 12:00 PM EDT [facility] pCO2, Arterial 51.6(H) 35.0 - 45.0 mmHg 01/17/2025 12:[facility], Arterial 55(L) 80 - 100 mmHg 01/17/2025 12:00 PM EDT [facility] Base, Excess 5.0(H) 0.0 - 2.0 mmol/L 01/17/2025 12:00 PM T [facility] HCO3, Arterial 31.5(H) 22.0 - 26.0 mmol/L 01/17/2025 12:00 PM T [facility] %O2 Saturation, Arterial 87.0(L) >90.0 % 01/17/2025 12:00 PM EDT [facility] Temo's test Pass 01/17/2025 12:00 PM EDT [facility] SPO2 90 % 01/17/2025 12:00 PM [facility] Sample site L Rad 01/17/2025 12:00 PM [facility] Insp. O2 conc. 76 % 01/17/2025 12:00 PM [facility] Source Of Oxygen NC 01/17/2025 12:00 PM [facility] arterial (Blood, Arterial) 01/17/2025 11:34 AM EDT 01/17/2025 12:00 PM EDT us Javad Horvath MD LAB BLOOD ORDERABLES Final Resu lt [facility] [address] [place] [address], [place] * (ABNORMAL) CBC auto differential (01/17/2025 4:05 AM EDT) WBC 18.2(H) 4 - 11 x10E9/L 01/17/2025 6:06 AM T [facility] RBC Count 3.79(L) 4.1 - 5.7 X10E12/L 01/17/2025 6:06 AM [facility] Hemoglobin 12.0(L) 13 - 17 g/dL 01/17/2025 6:06 AM T [facility] Hematocrit 35.7(L) 39 - 50 % 01/17/2025 6:06 AM [facility] MCV 94 80 - 100 fL 01/17/2025 6:06 AM [facility] MCH 31.5 27 - 34 pg 01/17/2025 6:06 AM [facility] MCHC 33.5 32 - 36 g/dL 01/17/2025 6:06 AM [facility] RDW 14.6 11.5 - 15 % 01/17/2025 6:06 AM [facility] Platelet Count 377 150 - 450 X10E9/L 01/17/2025 6:06 AM [facility] MPV 8.1 7 - 12 fL 01/17/2025 6:06 AM [facility] Neutrophils % 93.7 % 01/17/2025 6:06 AM [facility] Comment:This is an appended report. These results have been appended to a previously preliminary verified report. Lymphocytes % 1.7 % 01/17/2025 6:06 AM [facility] Comment:This is an appended report. These results have been appended to a previously preliminary verified report. Monocytes % 4.3 % 01/17/2025 6:06 AM [facility] Comment:This is an appended report. These results have been appended to a previously preliminary verified report. Eosinophils % 0.0 % 01/17/2025 6:06 AM [facility] Comment:This is an appended report. These results have been appended to a previously preliminary verified report. Basophils % 0.3 % 01/17/2025 6:06 AM [facility] Comment:This is an appended report. These results have been appended to a previously preliminary verified report. Neutrophils Absolute (A) 17.0(H) 1.5 - 6.6 10*3/uL 01/17/2025 6:06 AM [facility] Comment:This is an appended report. These results have been appended to a previously preliminary verified report. Lymphocytes Absolute 0.3(L) 1.0 - 3.5 10*3/uL 01/17/2025 6:06 AM [facility] Comment:This is an appended report. These results have been appended to a previously preliminary verified report. Monocytes Absolute 0.8 0.0 - 0.9 10*3/uL 01/17/2025 6:06 AM T [facility] Comment:This is an appended report. These results have been appended to a previously preliminary verified report. Eosinophils Absolute 0.0 0.0 - 0.4 10*3/uL 01/17/2025 6:06 AM T [facility] Comment:This is an appended report. These results have been appended to a previously preliminary verified report. Basophils Absolute 0.0 0.0 - 0.2 10*3/uL 01/17/2025 6:06 AM EDT [facility] Comment:This is an appended report. These results have been appended to a previously preliminary verified report. RBC Morphology Normal 01/17/2025 6:06 AM T [facility] Comment:This is an appended report. These results have been appended to a previously preliminary verified report. Differential Type AUTOMATED DIFFERENTIAL 01/17/2025 6:06 AM T [facility] Comment:This is an appended report. These results have been appended to a previously preliminary verified report. Blood Venous blood / Unknown 01/17/2025 4:05 AM EDT 01/17/2025 4:09 AM EDT Brenda Millan ELEVATOR [employer]NER-[employer]NALY[employer] LAB BLOOD ORDERABLES Fi nal Result Performing Organization Address [facility]/ZIP Co de Phone Number [address] [place] [address], [place] * Magnesium (01/17/2025 4:05 AM EDT) MAGNESIUM 2.0 1.8 - 2.6 mg/dL 01/17/2025 4:30 AM EDT [facility] Blood Venous blood / Unknown 01/17/2025 4:05 AM EDT 01/17/2025 4:09 AM EDT Brenda Millan ELEVATOR [employer]NER-[employer] ANALYST LAB BLOOD ORDERABLES Fi nal Result Performing Organization Address City/[facility]/ZIP Co de Phone Number [address] [place] [address], [place] * (ABNORMAL) Comprehensive metabolic panel (01/17/2025 4:05 AM EDT) SODIUM 141 134 - 146 mmol/L 01/17/2025 4:30 AM [facility] POTASSIUM 4.0 3.5 - 5.0 mmol/L 01/17/2025 4:30 AM [facility] CHLORIDE 101 98 - 109 mmol/L 01/17/2025 4:30 AM [facility] CARBON DIOXIDE 30 22 - 32 mmol/L 01/17/2025 4:30 AM [facility] ANION GAP 10 5 - 15 mmol/L 01/17/2025 4:30 AM [facility] BLOOD UREA NITROGEN 43(H) 5 - 27 mg/dL 01/17/2025 4:30 AM [facility] CREATININE 1.07 0.70 - 1.20 mg/dL 01/17/2025 4:30 AM [facility] Comment:METHOD TRACEABLE TO IDMS STANDARD GLUCOSE 122(H) 65 - 99 mg/dL 01/17/2025 4:30 AM [facility] CALCIUM 8.6 8.5 - 10.5 mg/dL 01/17/2025 4:30 AM [facility] TOTAL PROTEIN 5.9(L) 6.0 - 8.0 g/dL 01/17/2025 4:30 AM [facility] ALBUMIN 2.6(L) 3.2 - 5.3 g/dL 01/17/2025 4:30 AM [facility] ALKALINE PHOSPHATASE 67 39 - 130 U/L 01/17/2025 4:30 AM [facility] AST 25 <=41 U/L 01/17/2025 4:30 AM [facility] ALT 38 <=40 U/L 01/17/2025 4:30 AM [facility] BILIRUBIN,TOTAL 0.4 0.3 - 1.2 mg/dL 01/17/2025 4:30 AM [facility] EGFR Non-Race Dependent 73 >=60 ml/min/1.7 3sq.m 01/17/2025 4:30 AM [facility] Comment: eGFR not reported due to non-numeric value for Creatinine. EGFR not calculated due to patient's gender not being defined. Reported eGFR is based on the CKD-EPI 2020 equation that does not use a race coefficient. Blood Venous blood / Unknown 01/17/2025 4:05 AM EDT 01/17/2025 4:09 AM EDT Brenda Monty ELEVATOR [employer]NER-[employer]NALY[employer] LAB BLOOD ORDERABLES Fi nal Result Performing Organization Address [facility] Phone Number [address] [place] [address], [place] * Anti XA unfractionated heparin (01/17/2025 4:05 AM EDT) ANTI XA UFH 0.32 0.30 - 0.70 IU/mL 01/17/2025 4:37 AM EDT [facility] Comment: Optimal time for testing is 6 hrs post dosage This test is specific for monitoring patients on UFH, and is not recommended for use with other Anti-Xa medications. Blood Venous blood / Unknown 01/17/2025 4:05 AM EDT 01/17/2025 4:09 AM EDT Javad Horvath MD LAB BLOOD ORDERABLES Final Resu lt Performing Organization Address [facility] Number [address] [place] [address], [place] * (ABNORMAL) Myoglobin, serum (01/17/2025 4:05 AM EDT) SERUM MYOGLOBIN 179.6(H) 17.4 - 105.7 ng/mL 01/17/2025 4:40 AM EDT [facility] Blood Venous blood / Unknown 01/17/2025 4:05 AM EDT 01/17/2025 4:09 AM EDT Brenda Monty ELEVATOR [employer]NER-[employer]QU[employer] ANALYST LAB BLOOD ORDERABLES Fi nal Result Performing Organization Address [facility] de Phone Number [address] [place] [address], [place] * CK Total (01/17/2025 4:05 AM EDT) CPK 61 24 - 195 U/L 01/17/2025 4:30 AM EDT [facility] Blood Venous blood / Unknown 01/17/2025 4:05 AM EDT 01/17/2025 4:09 AM EDT Brenda Monty ELEVATOR [employer]NER-[employer]QU[employer]NALYST LAB BLOOD ORDERABLES Fi nal Result Performing Organization Address [facility] Co de Phone Number [address] [place] [address], [place] * Anti XA unfractionated heparin (01/16/2025 10:00 PM EDT) Pathologist [facility] ANTI XA UFH 0.32 0.30 - 0.70 IU/mL 01/16/2025 10:37 PM EDT [facility] Comment: Optimal time for testing is 6 hrs post dosage This test is specific for monitoring patients on UFH, and is not recommended for use with other Anti-Xa medications. Blood Venous blood / Unknown 01/16/2025 10:00 PM EDT 01/16/2025 10:03 PM EDT Brenda Hartland ELEVATOR RUNNER-[facility] LAB BLOOD ORDERABLES Fi nal Result Performing Organization Address [facility] Co de Phone Number [address] [place] [address], [place] * (ABNORMAL) Protime & INR (01/16/2025 4:41 PM EDT) Pathologist [facility] PROTIME 18.3(H) 9.8 - 13.2 sec 01/16/2025 5:02 PM EDT [facility] INR 1.6(H) 0.9 - 1.2 01/16/2025 5:02 PM EDT [facility] Blood Venous blood / Unknown 01/16/2025 4:41 PM EDT 01/16/2025 4:49 PM EDT [facility] [employer] [employer] LAB BLOOD ORDERABLES Fi nal Result Performing Organization Address City/[facility]/ZIP Co de Phone Number [address] [place] [address], [place] * APTT (01/16/2025 4:41 PM EDT) APTT 30 26 - 37 sec 01/16/2025 5:02 PM EDT [facility] Blood Venous blood / Unknown 01/16/2025 4:41 PM EDT 01/16/2025 4:49 PM EDT Brenda Millan E[employer]QU[employer] ANALYST LAB BLOOD ORDERABLES Fi nal Result Performing Organization Address [facility] Co de Phone Number [address] [place], [place] [address], [place] * Platelet count (01/16/2025 4:41 PM EDT) Platelet Count 335 150 - 450 X10E9/L 01/16/2025 4:51 PM EDT [facility] MPV 8.3 7 - 12 fL 01/16/2025 4:51 PM EDT [facility] Blood Venous blood / Unknown 01/16/2025 4:41 PM EDT 01/16/2025 4:49 PM EDT Brenda Millan ELEVATOR [employer]NER[employer]LYST LAB BLOOD ORDERABLES Fi nal Result Performing Organization Address [facility] Co de Phone Number [address] [place] [address], [place] * (ABNORMAL) Hemoglobin (01/16/2025 4:41 PM EDT) Hemoglobin 11.3(L) 13 - 17 g/dL 01/16/2025 4:51 PM EDT [facility] Blood Venous blood / Unknown 01/16/2025 4:41 PM EDT 01/16/2025 4:49 PM EDT Brenda Millan ELEVATOR [employer]NER-[employer]QU[employer]NALYST LAB BLOOD ORDERABLES Fi nal Result [facility] [address] [place] [address], [place] * X-ray chest 1 view (01/16/2025 10:10 AM EDT) Anatomical Region Laterality Modality Body, Chest N/A Computed Radiogr aphy 01/16/2025 10:2 0 AM EDT Narrative 01/16/2025 10:20 AM EDT Single view chest History: SOB. Chest pain. Comparison: 01/15/2025 Findings: Single portable view of the chest. Interval extubation. Right-sided PICC line in unchanged position. Cardiac silhouette is stable. New small left-sided pleural effusion with bibasilar atelectasis and mild interstitial edema. Impression: 1. New small left-sided pleural effusion with bibasilar atelectasis. 2. Interval extubation. Finalized by Suhas Arellano MD on 01/16/2025 10:20 AM Procedure Note Suhas Arellano MD - 01/16/2025 Single view chest History: SOB. Chest pain. Comparison: 01/15/2025 Findings: Single portable view of the chest. Interval extubation. Right-sided PICC line in unchanged position. Cardiacsilhouette is stable. New small left-sided pleural effusion with bibasilaratelectasis and mild interstitial edema. Impression: 1. New small left-sided pleural effusion with bibasilar atelectasis. 2. Interval extubation. Finalized by Suhas Arellano MD on 01/16/2025 10:20 AM us Travis Agrawal MD IMG DIAGNOSTIC IMAGING ORDERABLE S Final Result * (ABNORMAL) CBC auto differential (01/16/2025 4:28 AM EDT) WBC 16.6(H) 4 - 11 x10E9/L 01/16/2025 4:41 AM EDT [facility] RBC Count 3.38(L) 4.1 - 5.7 X10E12/L 01/16/2025 4:41 AM EDT [facility] Hemoglobin 10.5(L) 13 - 17 g/dL 01/16/2025 4:41 AM [facility] Hematocrit 31.8(L) 39 - 50 % 01/16/2025 4:41 AM [facility] MCV 94 80 - 100 fL 01/16/2025 4:41 AM [facility] MCH 31.0 27 - 34 pg 01/16/2025 4:41 AM [facility] MCHC 32.9 32 - 36 g/dL 01/16/2025 4:41 AM [facility] RDW 14.3 11.5 - 15 % 01/16/2025 4:41 AM [facility] Platelet Count 301 150 - 450 X10E9/L 01/16/2025 4:41 AM [facility] MPV 8.6 7 - 12 fL 01/16/2025 4:41 AM [facility] Neutrophils % 94.7 % 01/16/2025 4:41 AM [facility] Lymphocytes % 1.0 % 01/16/2025 4:41 AM [facility] Monocytes % 4.1 % 01/16/2025 4:41 AM [facility] Eosinophils % 0.0 % 01/16/2025 4:41 AM [facility] Basophils % 0.2 % 01/16/2025 4:41 AM [facility] Neutrophils Absolute (A) 15.7(H) 1.5 - 6.6 10*3/uL 01/16/2025 4:41 AM [facility] Lymphocytes Absolute 0.2(L) 1.0 - 3.5 10*3/uL 01/16/2025 4:41 AM [facility] Monocytes Absolute 0.7 0.0 - 0.9 10*3/uL 01/16/2025 4:41 AM [facility] Eosinophils Absolute 0.0 0.0 - 0.4 10*3/uL 01/16/2025 4:41 AM [facility] Basophils Absolute 0.0 0.0 - 0.2 10*3/uL 01/16/2025 4:41 AM [facility] Differential Type AUTOMATED DIFFERENTIAL 01/16/2025 4:41 AM EDT [facility] Blood Venous blood / Unknown 01/16/2025 4:28 AM EDT 01/16/2025 4:32 AM EDT Brenda Millan ELEVATOR [employer]NER-[employer]LYST LAB BLOOD ORDERABLES Fi nal Result Performing Organization Address City/[facility]/ZIP Co de Phone Number [address] [place] [address], [place] * Magnesium (01/16/2025 4:28 AM EDT) MAGNESIUM 2.2 1.8 - 2.6 mg/dL 01/16/2025 5:15 AM EDT [facility] Blood Venous blood / Unknown 01/16/2025 4:28 AM EDT 01/16/2025 4:32 AM EDT Brenda Millan ELEVATOR [employer]NER[employer]QU[employer] ANALYST LAB BLOOD ORDERABLES Fi nal Result Performing Organization Address [facility]/ZIP Co de Phone Number [address] [place] [address], [place] * (ABNORMAL) Comprehensive metabolic panel (01/16/2025 4:28 AM EDT) SODIUM 140 134 - 146 mmol/L 01/16/2025 5:15 AM T [facility] POTASSIUM 4.6 3.5 - 5.0 mmol/L 01/16/2025 5:15 AM T [facility] CHLORIDE 105 98 - 109 mmol/L 01/16/2025 5:15 AM T [facility] CARBON DIOXIDE 26 22 - 32 mmol/L 01/16/2025 5:15 AM T [facility] ANION GAP 9 5 - 15 mmol/L 01/16/2025 5:15 AM [facility] BLOOD UREA NITROGEN 47(H) 5 - 27 mg/dL 01/16/2025 5:15 AM [facility] CREATININE 1.30(H) 0.70 - 1.20 mg/dL 01/16/2025 5:15 AM [facility] Comment:METHOD TRACEABLE TO IDMS STANDARD GLUCOSE 118(H) 65 - 99 mg/dL 01/16/2025 5:15 AM [facility] CALCIUM 8.7 8.5 - 10.5 mg/dL 01/16/2025 5:15 AM [facility] TOTAL PROTEIN 5.5(L) 6.0 - 8.0 g/dL 01/16/2025 5:15 AM [facility] ALBUMIN 2.4(L) 3.2 - 5.3 g/dL 01/16/2025 5:15 AM [facility] ALKALINE PHOSPHATASE 482(H) 39 - 130 U/L 01/16/2025 5:15 AM [facility] AST 28 <=41 U/L 01/16/2025 5:15 AM [facility] ALT 35 <=40 U/L 01/16/2025 5:15 AM [facility] BILIRUBIN,TOTAL 0.5 0.3 - 1.2 mg/dL 01/16/2025 5:15 AM [facility] EGFR Non-Race Dependent 58(L) >=60 ml/min/1.7 3sq.m 01/16/2025 5:15 AM [facility] Comment: eGFR not reported due to non-numeric value for Creatinine. EGFR not calculated due to patient's gender not being defined. Reported eGFR is based on the CKD-EPI 2020 equation that does not use a race coefficient. Blood Venous blood / Unknown 01/16/2025 4:28 AM EDT 01/16/2025 4:32 AM EDT us Brenda Millan ELEVATOR [employer]NER[employer]NALYST LAB BLOOD ORDERABLES Fi nal Result [facility] [address] [place] [address], [place] * (ABNORMAL) Myoglobin, serum (01/16/2025 4:28 AM EDT) SERUM MYOGLOBIN 202.9(H) 17.4 - 105.7 ng/mL 01/16/2025 5:15 AM T [facility] Blood Venous blood / Unknown 01/16/2025 4:28 AM EDT 01/16/2025 4:32 AM EDT Brenda Millan ELEVATOR [employer]NER-[employer]QU[employer] ANALYST LAB BLOOD ORDERABLES Fi nal Result [facility] [address] [place] [address], [place] * CK Total (01/16/2025 4:28 AM EDT) CPK 84 24 - 195 U/L 01/16/2025 5:15 AM EDT [facility] Blood Venous blood / Unknown 01/16/2025 4:28 AM EDT 01/16/2025 4:32 AM EDT Brenda Millan ELEVATOR [employer]NER-[employer]QU[employer] ANALYST LAB BLOOD ORDERABLES Fi nal Result Performing Organization Address [facility] Co de Phone Number [address] [place] [address], [place] * X-ray chest 1 view (01/15/2025 7:00 AM EDT) Anatomical Region Laterality Modality Body, Chest N/A Computed Radiogr aphy 01/15/2025 7:50 AM EDT Narrative 01/15/2025 7:50 AM EDT XR CHEST 1 VW Clinical Information: resp failure Comparison: 01/14/2025. IMPRESSION: * Unchanged lines and tubes. * Minimal basilar atelectasis, trace left effusion. * Cardiomegaly. Finalized by Jeb Luciano MD on 01/15/2025 7:50 AM Procedure Note Jeb Luciano MD - 01/15/2025 XR CHEST 1 VW Clinical Information: resp failure Comparison: 01/14/2025. IMPRESSION: * Unchanged lines and tubes. * Minimal basilar atelectasis, trace left effusion. * Cardiomegaly. Finalized by Jbe Luciano MD on 01/15/2025 7:50 AM us Travis Agrawal MD IMG DIAGNOSTIC IMAGING ORDERABLE S Final Result * (ABNORMAL) Blood Gas, Arterial (01/15/2025 4:58 AM EDT) Sample type ARTERIAL 01/15/2025 10:28 PM EDT [facility] pH, Arterial 7.309(L) 7.350 - 7.450 01/15/2025 10:[facility] p[facility], Arterial 54.6(H) 35.0 - 45.0 mmHg 01/15/2025 10:28 PM T [facility] PO2, Arterial 104(H) 80 - 100 mmHg 01/15/2025 10:28 PM T [facility] Base, Excess 0.0 0.0 - 2.0 mmol/L 01/15/2025 10:28 PM [facility] HCO3, Arterial 27.4(H) 22.0 - 26.0 mmol/L 01/15/2025 10:28 PM [facility] %O2 Saturation, Arterial 97.0 >90.0 % 01/15/2025 10:28 PM [facility] Temo's test N/A 01/15/2025 10:28 PM [facility] SPO2 100 % 01/15/2025 10:28 PM [facility] Sample site A Line 01/15/2025 10:28 PM [facility] Insp. O2 conc. 35 % 01/15/2025 10:28 PM [facility] Source Of Oxygen Vent 01/15/2025 10:28 PM [facility] arterial (Blood, Arterial) 01/15/2025 4:58 AM EDT 01/15/2025 10:28 PM EDT us Javad Horvath MD LAB BLOOD ORDERABLES Final Resu lt [facility] [address] [place] [address], [place] * (ABNORMAL) CBC auto differential (01/15/2025 3:10 AM EDT) WBC 14.4(H) 4 - 11 x10E9/L 01/15/2025 3:25 AM [facility] RBC Count 3.29(L) 4.1 - 5.7 X10E12/L 01/15/2025 3:25 AM [facility] Hemoglobin 10.3(L) 13 - 17 g/dL 01/15/2025 3:25 AM [facility] Hematocrit 30.7(L) 39 - 50 % 01/15/2025 3:25 AM [facility] MCV 93 80 - 100 fL 01/15/2025 3:25 AM [facility] MCH 31.4 27 - 34 pg 01/15/2025 3:25 AM [facility] MCHC 33.8 32 - 36 g/dL 01/15/2025 3:25 AM [facility] RDW 13.9 11.5 - 15 % 01/15/2025 3:25 AM [facility] Platelet Count 246 150 - 450 X10E9/L 01/15/2025 3:25 AM [facility] MPV 9.0 7 - 12 fL 01/15/2025 3:25 AM [facility] Neutrophils % 95.3 % 01/15/2025 3:25 AM [facility] Lymphocytes % 0.7 % 01/15/2025 3:25 AM [facility] Monocytes % 3.1 % 01/15/2025 3:25 AM [facility] Eosinophils % 0.0 % 01/15/2025 3:25 AM [facility] Basophils % 0.9 % 01/15/2025 3:25 AM [facility] Neutrophils Absolute (A) 13.7(H) 1.5 - 6.6 10*3/uL 01/15/2025 3:25 AM [facility] Lymphocytes Absolute 0.1(L) 1.0 - 3.5 10*3/uL 01/15/2025 3:25 AM [facility] Monocytes Absolute 0.4 0.0 - 0.9 10*3/uL 01/15/2025 3:25 AM [facility] Eosinophils Absolute 0.0 0.0 - 0.4 10*3/uL 01/15/2025 3:25 AM EDT [facility] Basophils Absolute 0.1 0.0 - 0.2 10*3/uL 01/15/2025 3:25 AM EDT [facility] Differential Type AUTOMATED DIFFERENTIAL 01/15/2025 3:25 AM EDT [facility] Blood Venous blood / Unknown Central Line / Unknown 01/15/2025 3:10 AM EDT 01/15/2025 3:21 AM EDT Brenda Millan ELEVATOR [employer]NER-[employer] ANALYST LAB BLOOD ORDERABLES Fi nal Result [address] [place] [address], [place] * Magnesium (01/15/2025 3:10 AM EDT) MAGNESIUM 2.2 1.8 - 2.6 mg/dL 01/15/2025 4:04 AM EDT [facility] Blood Venous blood / Unknown Central Line / Unknown 01/15/2025 3:10 AM EDT 01/15/2025 3:21 AM EDT Brenda Millan ELEVATOR [employer]NER-[employer]QU[employer] ANALYST LAB BLOOD ORDERABLES Fi nal Result [address] [place] [address], [place] * (ABNORMAL) Comprehensive metabolic panel (01/15/2025 3:10 AM EDT) SODIUM 134 134 - 146 mmol/L 01/15/2025 4:04 AM EDT [facility] POTASSIUM 4.2 3.5 - 5.0 mmol/L 01/15/2025 4:04 AM EDT [facility] CHLORIDE 102 98 - 109 mmol/L 01/15/2025 4:04 AM EDT [facility] CARBON DIOXIDE 26 22 - 32 mmol/L 01/15/2025 4:04 AM EDT [facility] ANION GAP 6 5 - 15 mmol/L 01/15/2025 4:04 AM EDT [facility] BLOOD UREA NITROGEN 40(H) 5 - 27 mg/dL 01/15/2025 4:04 AM [facility] CREATININE 1.35(H) 0.70 - 1.20 mg/dL 01/15/2025 4:04 AM [facility] Comment:METHOD TRACEABLE TO IDIN STANDARD GLUCOSE 113(H) 65 - 99 mg/dL 01/15/2025 4:04 AM [facility] CALCIUM 8.2(L) 8.5 - 10.5 mg/dL 01/15/2025 4:04 AM [facility] TOTAL PROTEIN 5.3(L) 6.0 - 8.0 g/dL 01/15/2025 4:04 AM [facility] ALBUMIN 2.7(L) 3.2 - 5.3 g/dL 01/15/2025 4:04 AM [facility] ALKALINE PHOSPHATASE 60 39 - 130 U/L 01/15/2025 4:04 AM [facility] AST 34 <=41 U/L 01/15/2025 4:04 AM [facility] ALT 35 <=40 U/L 01/15/2025 4:04 AM [facility] BILIRUBIN,TOTAL 0.7 0.3 - 1.2 mg/dL 01/15/2025 4:04 AM [facility] EGFR Non-Race Dependent 55(L) >=60 ml/min/1.7 3sq.m 01/15/2025 4:04 AM [facility] Comment: eGFR not reported due to non-numeric value for Creatinine. EGFR not calculated due to patient's gender not being defined. Reported eGFR is based on the CKD-EPI 202 equation that does not use a race coefficient. Blood Venous blood / Unknown Central Line / Unknown 01/15/2025 3:10 AM EDT 01/15/2025 3:21 AM EDT us Brenda Millan ELEVATOR [employer]NER-[employer]QU[employer]NALYST LAB BLOOD ORDERABLES Fi nal Result [facility] [address] [place] [address], [place] * (ABNORMAL) Myoglobin, serum (01/15/2025 3:10 AM EDT) SERUM MYOGLOBIN 398.7(H) 17.4 - 105.7 ng/mL 01/15/2025 4:04 AM EDT [facility] Blood Venous blood / Unknown Central Line / Unknown 01/15/2025 3:10 AM EDT 01/15/2025 3:21 AM EDT Brenda Millan ELEVATOR [employer]NER-[employer]NALYST LAB BLOOD ORDERABLES Fi nal Result Performing Organization Address [facility] Co de Phone Number [address] [place] [address], [place] * (ABNORMAL) CK Total (01/15/2025 3:10 AM EDT) CPK 205(H) 24 - 195 U/L 01/15/2025 4:04 AM EDT [facility] Blood Venous blood / Unknown Central Line / Unknown 01/15/2025 3:10 AM EDT 01/15/2025 3:21 AM EDT Brenda Bowmanmore ELEVATOR [employer]NER-[employer]QU[employer] ANALYST LAB BLOOD ORDERABLES Fi nal Result Performing Organization Address [facility] de Phone Number [address] [place] [address], [place] * X-ray chest 1 view (01/14/2025 8:42 PM EDT) Anatomical Region Laterality Modality Body, Chest N/A Computed Radiogr aphy 01/14/2025 8:56 PM EDT Narrative 01/14/2025 8:57 PM EDT History: PICC line placement Technique: A portable single frontal view of the chest was obtained. Comparison: 01/14/2025 at 106. Findings: There is a PICC line approaching from the right with its tip this. Vena cava. An endotracheal tube is seen with its tip approximate 6.4 cm above the mellisa. An enteric tube is seen with its tip in the stomach however its side port is at the level of the gastroesophageal junction, retracted slightly since the previous examination. Advancement further the stomach is recommended. There is no evidence for active cardiovascular or pulmonary disease. Impression: * Right-sided PICC line has its tip in the superior vena cava * The enteric tube has retracted slightly since the previous examination and its side-port is now at the level the gastroesophageal junction * Endotracheal tube in place with its tip above the mellisa. Finalized by Reynaldo Decker MD on 01/14/2025 8:57 PM Procedure Note Reynaldo Decker MD - 01/14/2025 History: PICC line placement Technique: A portable single frontal view of the chest was obtained. Comparison: 01/14/2025 at 106. Findings: There is a PICC line approaching from the right with its tipthis. Vena cava. An endotracheal tube is seen with its tip approximate 6.4cm above the mellisa. An enteric tube is seen with its tip in the stomachhowever its side port is at the level of the gastroesophageal junction,retracted slightly since the previous examination. Advancement further the stomachis recommended. There is no evidence for active cardiovascular or pulmonary disease. Impression: * Right-sided PICC line has its tip in the superior vena cava * The enteric tube has retracted slightly since the previous examinationand its side-port is now at the level the gastroesophageal junction * Endotracheal tube in place with its tip above the mellisa. Finalized by Reynaldo Decker MD on 01/14/2025 8:57 PM Javad Horvath MD IMG DIAGNOSTIC IMAGING ORDERABL ES Final Result documented in this encounter Visit Diagnoses Diagnosis Acute respiratory failure with hypoxia ([facility])- Primary Encounter for ostomy nurse consultation Colostomy in place ([facility]) Colostomy status Perforated diverticulum of large intestine Diverticulosis of colon (without mention of hemorrhage) S/P partial resection of colon Other postprocedural status Colostomy present ([facility]) A-fib ([facility]) Atrial fibrillation Paroxysmal atrial fibrillation ([facility]) Atrial fibrillation Atrial fibrillation with rapid ventricular response ([facility]) Cardiomyopathy, nonischemic ([facility]) Other primary cardiomyopathies ELLY (acute kidney injury) Scrotal swelling Edema of male genital organs Colostomy present ([facility]) Fall Unspecified fall Traumatic rhabdomyolysis History of CVA (cerebrovascular accident) Transient ischemic attack (TIA), and cerebral infarction without residual deficits Hypotension Unspecified hypotension Septic shock ([facility]) H/O unilateral orchiectomy H/O left inguinal hernia repair S/P partial resection of colon Other postprocedural status documented in this encounter Admitting Diagnoses Diagnosis A-fib ([facility]) Atrial fibrillation documented in this encounter Administered Medications Inactive Administered Medications - up to 3 most recent administrations Medication Order MAR Action Action Date Dose Rate Site acetaminophen (OFIRMEV) IVPB Premix 1,000 mg 1,000 mg, intravenous, at 400 mL/hr, Administer over 15 Minutes, Every 6 hours scheduled, First dose on Sat01/15/25 at 1800, For 24 hours Rate/Dose Verify 01/16/2025 11:04 AM EDT 400 mL/hr New Bag 01/16/2025 11:04 AM EDT 1,000 mg 400 mL/hr New Bag 01/16/2025 6:05 AM EDT 1,000 mg 400 mL/hr acetaminophen (OFIRMEV) IVPB Premix 1,000 mg 1,000 mg, intravenous, at 400 mL/hr, Administer over 15 Minutes, Every 6 hours, First dose (after last reorder) on 01/16/25 at 1700, For 24 hours New Bag 01/17/2025 5:42 AM EDT 1,000 mg 4 00 mL/hr New Bag 01/16/2025 11:59 PM EDT 1,000 mg 400 mL/hr New Bag 01/16/2025 4:56 PM EDT 1,000 mg 400 mL/hr acetaminophen (TYLENOL EXTRA STRENGTH) tablet 1,000 mg 1,000 mg, oral, Every 6 hours scheduled, First dose on Sat01/17/25 at 1200 Given 01/22/2025 2:13 AM EDT 1,000 mg Given 01/21/2025 8:15 PM EDT 1,000 mg Given 01/21/2025 11:45 AM EDT 1,000 mg acetaminophen (TYLENOL EXTRA STRENGTH) tablet 500 mg 500 mg, oral, Every 6 hours PRN, mild pain - pain scale 1-3, headaches, temperature greater than 38 C, Starting on [place] 01/14/25 at 1522, [Warning: Total Acetaminophen not to exceed more than 4 grams (4000 mg) in 24 hours] alteplase (CATHFLO) injection 2 mg 2 mg, intravenous, Once, On Sat01/19/25 at 0945, For 1 dose, Look-alike/sound-alike medication - verify indication for use. Given 01/19/2025 10:07 AM EDT 2 m g alteplase (CATHFLO) injection 2 mg 2 mg, intravenous, Once, On Sat01/19/25 at 0945, For 1 dose, Look-alike/sound-alike medication - verify indication for use. Given 01/19/2025 10:06 AM EDT 2 m g alum-mag hydroxide-simeth (MAALOX) 200-200-20 mg/5 mL suspension 30 mL 30 mL, oral, 4 times daily after meals and at bedtime as needed, dyspepsia, Starting on Sat01/14/25 at 1522, Look-alike/sound-alike medication - verify indication for use. Rishabh ballesteros., Indications: dyspepsiaIndications:dyspepsia apixaban (ELIQUIS) tablet 5 mg 5 mg, oral, 2 times daily, First dose (after last modification) on Sat01/18/25 at 1700, Indication: Nonvalvular Atrial Fibrillation (NVAF), Indications: prevent thromboembolism in chronic atrial fibrillationIndications:prevent thromboembolism in chronic atrial fibrillation Given 01/22/2025 8: 37 AM EDT 5 mg Given 01/21/2025 10:07 PM EDT 5 mg Given 01/21/2025 8:01 AM EDT 5 mg cefTRIAXone (ROCEPHIN) 1,000 mg in sodium chloride 0.9 % 50 mL IVPB W/ADAPTER 1,000 mg, intravenous, at 100 mL/hr, Administer over 30 Minutes, Every 24 hours, First dose on Sat01/14/25 at 2000, For Vial-2-Bag: Attach bag and vial to adapter - Use immediately after activating; dissolve drug prior to administration., Indication: Intra-abdominal New Bag 01/19/2025 8:04 PM EDT 1,000 mg 100 mL/hr Rate/Dose Verify 01/18/2025 8:40 PM EDT 100 mL/ hr New Bag 01/18/2025 8:40 PM EDT 1,000 mg 100 mL/hr chlorhexidine (PERIDEX) 0.12 % solution 15 mL 15 mL, mouth/throat, 2 times daily, First dose on Sat01/14/25 at 2100, Swish undiluted for 30 seconds, then spit. Given 01/21/2025 10:08 PM EDT 15 mL Given 01/21/2025 11:32 AM EDT 15 mL Given 01/20/2025 9:07 PM EDT 15 mL digoxin (LANOXIN) injection 250 mcg 250 mcg, intravenous, Once, On Sat01/19/25 at 0900, For 1 dose, Administer IVP slowly over at least 5 minutes. HOLD FOR HR<70 Look-alike/sound-alike medication - verify indication for use. Given 01/19/2025 10:06 AM EDT 250 mcg digoxin (LANOXIN) injection 500 mcg 500 mcg, intravenous, Once, On Sat01/15/25 at 0115, For 1 dose, Administer IVP slowly over at least 5 minutes. Look-alike/sound-alike medication - verify indication for use. Given 01/15/2025 1:33 AM EDT 500 mcg dilTIAZem (CARDIZEM) 100 mg in sodium chloride 0.9 % 100 mL (1 mg/mL) infusion-AV 2.5-20 mg/hr (2.5-20 mL/hr), intravenous, Continuous, Starting on Sat01/15/25 at 1430, Notify prescriber if rate exceeds 15 mg/hr. Look-alike/sound-alike medication - verify indication for use., Monitoring Goals: HR, Monitoring Goal Direction: Within, Lower Parameter: 2.5, Upper Parameter: 10, Starting Dose (range 2.5 to 10 mg/hour): 2.5 mg/hour, Titration Dose Range (range 2.5 to 5 mg/hour): 2.5 - 5 mg/hour, Titration Frequency - As Frequent As: 15 minutes Restarted 01/18/2025 11:51 AM EDT 4 mg/hr 4 mL/h r Rate/Dose Verify 01/18/2025 10:17 AM EDT 4 mg/hr 4 mL/h r Rate/Dose Change 01/18/2025 10:16 AM EDT 4 mg/hr 4 mL/h r dilTIAZem (CARDIZEM) tablet 30 mg 30 mg, oral, Every 8 hours scheduled, First dose on Sat01/18/25 at 1400, Hold for systolic less than 100 or heart rate less than 60 Look-alike/sound-alike medication - verify indication for use. Given 01/18/2025 2:36 PM EDT 30 mg dilTIAZem (CARDIZEM) tablet 30 mg 30 mg, oral, Every 6 hours scheduled, First dose (after last modification) on Sat01/19/25 at 1200, Hold for systolic less than 100 or heart rate less than 60 Look-alike/sound-alike medication - verify indication for use. Given 01/19/2025 12:39 PM EDT 30 mg dilTIAZem (CARDIZEM) tablet 30 mg 30 mg, oral, Every 6 hours scheduled, First dose (after last modification) on Sat01/19/25 at 1800, For 1 dose, Hold for systolic less than 100 or heart rate less than 60 Look-alike/sound-alike medication - verify indication for use. Given 01/19/2025 5:22 PM EDT 30 mg dilTIAZem CD (CARDIZEM CD) 24 hr capsule 180 mg 180 mg, oral, Daily, First dose on Sat01/20/25 at 0900, Hold for systolic less than 100 or heart rate less than 60 Look-alike/sound-alike medication - verify indication for use. Do not crush or chew. Given 01/22/2025 8:37 AM EDT 18 0 mg Given 01/21/2025 8:10 AM EDT 180 mg Given 01/20/2025 8:57 AM EDT 180 mg famotidine (PF) (PEPCID) injection 20 mg 20 mg, intravenous, Every 24 hours, First dose on Sat01/14/25 at 1800, Dilute to total volume of 5 mL with 0.9% sod chl and administer IVP over 2 minutes. Given 01/15/2025 5:02 PM EDT 20 mg Given 01/14/2025 5:59 PM EDT 20 mg famotidine (PF) (PEPCID) injection 20 mg 20 mg, intravenous, Every 12 hours, First dose (after last modification) on Sat01/16/25 at 1800, Dilute to total volume of 5 mL with 0.9% sod chl and administer IVP over 2 minutes. Given 01/19/2025 5:59 AM EDT 2 0 mg Given 01/18/2025 5:13 PM EDT 20 mg Given 01/18/2025 6:04 AM EDT 20 mg furosemide (LASIX) injection 40 mg 40 mg, intravenous, Once, On 01/16/25 at 1200, For 1 dose, Look-alike/sound-alike medication - verify indication for use. IVP rate = 20 mg/min Given 01/16/2025 12:00 PM EDT 40 mg furosemide (LASIX) injection 40 mg 40 mg, intravenous, Once, On 01/17/25 at 1145, For 1 dose, Look-alike/sound-alike medication - verify indication for use. IVP rate = 20 mg/min Given 01/17/2025 12:09 PM EDT 40 mg heparin infusion 21860 units/500 mL in 0.45% NaCl (50 units/mL premix) 300-3,500 Units/hr (6-70 mL/hr), intravenous, Continuous, Starting on 01/16/25 at 1615, Please titrate from initial infusion rate listed above. MAXIMUM initial infusion: 1000 units/hr Heparin Low Intensity Infusion (Cardiology) Heparin Adjustment Table: Anti-Xa Therapeutic Goal: 0.3 - 0.7 IU/mL Anti-Xa results (IU/mL): Ant-Xa every 6 hours after dosage adjustment until therapeutic x 2 then every AM -less than 0.1 IU/mL: bolus 2000 units, increase rate by 150 units/hr (3 mL/hr), next Anti-Xa in 6 hrs. -0.1 - 0.29 IU/mL: increase rate by 100 units/hr (2 mL/hr), next Anti-Xa in 6 hours. -Notify provider if: Anti-Xa less than 0.3 IU per mL for 2 consecutive results. -0.3 - 0.7 IU/mL: Therapeutic level: next Anti-Xa in 6 hours then every AM. -0.71 - 0.8 IU/mL: decrease rate by 50 units/hr (1 mL/hr), next Anti-Xa in 6 hours. -0.81 - 1.6 IU/mL: stop infusion for 30 minutes, decrease rate by 100 units/hr (2 mL/hr), next Anti-Xa in 6 hours. -1.61 - 2 IU/mL: stop infusion for 60 minutes, decrease rate by 150 units/hr (3 mL/hr), next Anti-Xa in 6 hours. - Greater than 2 IU/mL: stop infusion for 90 minutes, decrease rate by 250 units/hr (5 mL/hr), next Anti-Xa in 6 hours. -Notify provider if: Platelet count less than 100,000/mm3 or less than or equal to 50% of baseline Monitor for signs of bleeding. Look-alike/sound-alike medication - verify indication for use., Indication: Afib or Mechanical Valve, INITIAL Infusion Dose (Units/hr): 1000 units/hr Restarted 01/18/2025 11:51 AM EDT 1,100 Units/hr 22 mL/hr Rate/Dose Verify 01/18/2025 7:22 AM EDT 1,100 Units/hr 22 mL/hr Restarted 01/18/2025 5:57 AM EDT 1,100 Units/hr 22 mL/hr HYDROmorphone (PF) (DILAUDID) injection 0.5 mg 0.5 mg, intravenous, Every 3 hours PRN, moderate pain - pain scale 4-6, Starting on Sat01/15/25 at 1527, If IV push, administer over over 2 to 3 minutes. Look-alike/sound-alike medication - verify indication for use. Given 01/16/2025 3:45 PM EDT 0.5 mg Given 01/15/2025 3:31 PM EDT 0.5 mg HYDROmorphone (PF) (DILAUDID) injection 0.5 mg 0.5 mg, intravenous, Every 3 hours PRN, severe pain - pain scale 7-10, breakthrough pain, Starting on Sat01/17/25 at 1030, If IV push, administer over over 2 to 3 minutes. Look-alike/sound-alike medication - verify indication for use. levalbuterol (XOPENEX) nebulizer solution 1.25 mg 1.25 mg, nebulization, Every 4 hours PRN, wheezing, Starting on 01/16/25 at 0916, Ordered in place of albuterol due to: arrhythmia, Implement INPATIENT/ED Bronchodilator Clinical Practice Guidelines? No Given 01/20/2025 9:55 AM EDT 1.25 mg Given 01/19/2025 10:50 PM EDT 1.25 mg Given 01/19/2025 4:06 AM EDT 1.25 mg levalbuterol (XOPENEX) nebulizer solution 1.25 mg 1.25 mg, nebulization, Every 4 hours while awake, First dose on Sat01/20/25 at 1100, Ordered in place of albuterol due to: intolerance to albuterol, Implement INPATIENT/ED Bronchodilator Clinical Practice Guidelines? Yes Given 01/22/2025 11:44 AM EDT 1.25 mg Given 01/22/2025 7:51 AM EDT 1.25 mg Given 01/21/2025 8:02 PM EDT 1.25 mg magnesium sulfate IVPB 2000 mg/50 mL in iso-osmotic water (40 mg/mL premix) 2,000 mg, intravenous, at 25 mL/hr, Administer over 120 Minutes, As needed, Magnesium level 1.7-1.9, Starting on [place] 01/14/25 at 1522, Recheck magnesium level 4 hours after infusion complete. With each magnesium result continue the replacement orders as needed. New Bag 01/22/2025 5:36 AM EDT 2,000 mg 25 mL/hr New Bag 01/20/2025 5:38 AM EDT 2,000 mg 25 mL/hr Rate/Dose Verify 01/18/2025 7:22 AM EDT 25 mL/h r magnesium sulfate IVPB 4000 mg/100 mL in iso-osmotic water (40 mg/mL premix) 4,000 mg, intravenous, at 25 mL/hr, Administer over 240 Minutes, As needed, Magnesium level 1.6 mg/dL or less, Starting on [place] 01/14/25 at 1522, Recheck magnesium level 4 hours after infusion complete. With each magnesium result continue the replacement orders as needed. melatonin (CIRCADIN) tablet 6 mg 6 mg, oral, Nightly, First dose on Sat01/19/25 at 0345 Given 01/21/2025 10:07 PM EDT 6 mg Given 01/20/2025 10:05 PM EDT 6 mg Given 01/19/2025 9:52 PM EDT 6 mg metoprolol (LOPRESSOR) injection 2.5 mg 2.5 mg, intravenous, Every 6 hours PRN, high blood pressure, if HR > 120 and BP > 100 mmHg, Starting on Sat01/15/25 at 0112, Look-alike/sound-alike medication - verify indication for use. Given 01/17/2025 10:20 AM EDT 2.5 mg Given 01/15/2025 3:40 PM EDT 2.5 mg Given 01/15/2025 5:47 AM EDT 2.5 mg metoprolol (LOPRESSOR) injection 5 mg 5 mg, intravenous, Every 6 hours scheduled, First dose on 01/16/25 at 1230, Hold if HR <90 Look-alike/sound-alike medication - verify indication for use. Given 01/17/2025 5:45 AM EDT 5 mg Given 01/16/2025 11:56 PM EDT 5 mg Given 01/16/2025 5:11 PM EDT 5 mg metoprolol tartrate (LOPRESSOR) tablet 50 mg 50 mg, oral, 2 times daily, First dose on Sat01/17/25 at 1215, Hold for systolic less than 100 or heart rate less than 60 Look-alike/sound-alike medication - verify indication for use. Given 01/22/2025 8:36 AM EDT 50 mg Given 01/21/2025 10:07 PM EDT 50 mg Given 01/21/2025 8:10 AM EDT 50 mg metroNIDAZOLE (FLAGYL) IVPB 500 mg/100 mL in iso-osmotic sodium chloride (5 mg/mL premix) 500 mg, intravenous, at 100 mL/hr, Administer over 60 Minutes, Every 12 hours, First dose on Sat01/14/25 at 1830, Look-alike/sound-alike medication - verify indication for use., Indication: Intra-abdominal New Bag 01/19/2025 6:02 AM EDT 500 mg 100 mL/hr New Bag 01/18/2025 6:46 PM EDT 500 mg 100 mL/hr New Bag 01/18/2025 6:02 AM EDT 500 mg 100 mL/hr metroNIDAZOLE (FLAGYL) tablet 500 mg 500 mg, oral, Every 12 hours scheduled, First dose on Sat01/19/25 at 2100, Food-Drug Interaction Education Required Look-alike/sound-alike medication - verify indication for use Ethanol: Use of ethanol is contraindicated during therapy and for 3 days after therapy discontinuation, Indication: Intra-abdominal Given 01/20/2025 8:57 AM EDT 500 mg Given 01/19/2025 9:52 PM EDT 500 mg micafungin (MYCAMINE) 100 mg in sodium chloride 0.9 % 100 mL IVPB W/ADAPTER 100 mg, intravenous, at 100 mL/hr, Administer over 60 Minutes, Every 24 hours, First dose on Sat01/20/25 at 1000, For Vial-2-Bag: Attach bag and vial to adapter - Use immediately after activating; dissolve drug prior to administration., Approved Indication: Azole-resistant organism, Authorizing Service: ID consult has been placed, I acknowledge that an appropriate consult is REQUIRED to use this drug at [facility], [facility] and [facility] per [facility]-approved policy # MM 1.15: Yes New Bag 01/22/2025 11:40 AM EDT 100 m g 100 mL/hr New Bag 01/21/2025 11:43 AM EDT 100 mg 100 mL/hr Rate/Dose Verify 01/20/2025 11:03 AM EDT 100 mL /hr norepinephrine (LEVOPHED) infusion 8 mg/250 mL in dextrose 5% (0.032 mg/mL PMX) 0.01-0.2 mcg/kg/min 83.2 kg (1.56-31.2 mL/hr, rounded to 1.6-31.2 mL/hr), intravenous, Continuous, Starting on [place] 01/14/25 at 1530, Preferred central line administration. Doses greater than 0.4 mcg/kg/min are rarely useful. Max 1 mcg/kg/min with provider order. Notify prescriber if rate exceeds 0.2 mcg/kg/min. VESICANT (RED) Requires Smart Pump., Monitoring Goals: MAP, Monitoring Goal Direction: Greater than or Equal to, Please specify: 65, Starting Dose (range 0.01 to 0.1 mcg/kg/min): 0.01 mcg/kg/min, Titration Dose Range (range 0.01 to 0.05 mcg/kg/min): 0.01 to 0.05 mcg/kg/min, Titration Frequency - As Frequent As (range 1 to 3 minutes): 2 minutes, Indication: Hypotension, Sequence of Pressors - Use this medication: First, Wean Sequence: Wean First Rate/Dose Verify 01/14/2025 6:29 PM EDT 0.04 mcg/kg/min 6.2 mL/hr Rate/Dose Verify 01/14/2025 4:03 PM EDT 0.04 mcg/kg/min 6. 2 mL/hr New Bag 01/14/2025 4:03 PM EDT 0.04 mcg/kg/min 6.2 mL/h r ondansetron (PF) (ZOFRAN) injection 4 mg 4 mg, intravenous, Every 4 hours PRN, nausea, vomiting, Starting on [place] 01/14/25 at 1522, Intravenous administration preferred to be given over 2-5 minutes. oxyCODONE (ROXICODONE) immediate release tablet 10 mg 10 mg, oral, Every 4 hours PRN, severe pain - pain scale 7-10, Starting on 01/17/25 at 1029, Look-alike/sound-alike medication - verify indication for use. Immediate release. oxyCODONE (ROXICODONE) immediate release tablet 5 mg 5 mg, oral, Every 4 hours PRN, moderate pain - pain scale 4-6, Starting on 01/17/25 at 1029, Look-alike/sound-alike medication - verify indication for use. Immediate release. piperacillin-tazobactam (ZOSYN) 3.375 g in sodium chloride 0.9 % 50 mL IVPB W/ADAPTER 3.375 g, intravenous, at 12.5 mL/hr, Administer over 4 Hours, Every 8 hours, First dose on Sat01/20/25 at 1400, Dose adjusted per [facility] approved piperacillin-tazobactam policy. First dose of 3.375 gram to be 4 hours after 4.5 gram dose if frequency is every 8 hours or 8 hours after 4.5 gram dose if frequency is every 12 hours. For Vial-2-Bag: Attach bag and vial to adapter - Use immediately after activating; dissolve drug prior to administration., Indication: Nosocomial intra-abdominal New Bag 01/22/2025 5:30 AM EDT 3.375 g 12.5 mL/hr New Bag 01/21/2025 10:12 PM EDT 3.375 g 12.5 mL/hr New Bag 01/21/2025 3:27 PM EDT 3.375 g 12.5 mL/hr piperacillin-tazobactam (ZOSYN) 4.5 g in sodium chloride 0.9 % 50 mL IVPB W/ADAPTER 4.5 g, intravenous, at 100 mL/hr, Administer over 30 Minutes, Once, On Sat01/20/25 at 1000, For 1 dose, Loading dose per [facility] approved piperacillin-tazobactam policy. First dose of 3.375 gram to be 4 hours after 4.5 gram dose if frequency is every 8 hours or 8 hours after 4.5 gram dose if frequency is every 12 hours. For Vial-2-Bag: Attach bag and vial to adapter - Use immediately after activating; dissolve drug prior to administration., Indication: Nosocomial intra-abdominal New Bag 01/20/2025 10:25 AM EDT 4.5 g 100 mL/hr potassium chloride (K-TAB,KLOR-CON) CR tablet 30-50 mEq 30-50 mEq, oral, As needed, Potassium Supplementation, Starting on [place] 01/14/25 at 1522, Progress to oral potassium replacement when patient [...] mEq. Do not crush or chew. Given 01/19/2025 3:57 AM EDT 30 mEq Given 01/18/2025 6:04 AM EDT 30 mEq potassium chloride (KAYCIEL) 20 mEq/15 mL solution 30-50 mEq 30-50 mEq, oral, As needed, Potassium Supplementation, Starting on [place] 01/14/25 at 1522, Progress to oral potassium replacement when patient [...] policy and monitor potassium levels potassium chloride IVPB 10 mEq/100 mL in water (0.1 mEq/mL premix) 10 mEq, intravenous, at 100 mL/hr, Administer over 60 Minutes, As needed, POTASSIUM REPLACEMENT, Starting on [place] 01/14/25 at 1522, IV if unable to use oral/enteral with [...] minimum of 1 hour. propofoL (DIPRIVAN) infusion 5-50 mcg/kg/min 83.2 kg (2.496-24.96 mL/hr, rounded to 2.5-25 mL/hr), intravenous, Continuous, Starting on [place] 01/14/25 at 1530, Notify prescriber if rate exceeds 50 mcg/kg/min. (Max dose for status epilepticus is 200 mcg/kg/min). Check triglyceride level every 72 hours while on propofol. Look-alike/sound-alike medication - verify indication for use. Tubing and any unused portions of propofol vials should be discarded after 12 hours., Monitoring Goals: RASS, Starting Dose (range 5 to 30 mcg/kg/min): 10 mcg/kg/min, Titration Dose Range (range 5 to 10 mcg/kg/min): 5 - 10 mcg/kg/min, Titration Frequency - As Frequent As (range 1 to 3 minutes): 2 minutes, Indication: Sedation, Sequence of Sedation- Use this medication: First, Wean Sequence: Wean First Rate/Dose Verify 01/15/2025 9:31 AM EDT 15 mcg/kg/min 7.5 mL/hr Rate/Dose Change 01/15/2025 9:08 AM EDT 15 mcg/kg/min 7.5 mL/hr Rate/Dose Change 01/15/2025 7:16 AM EDT 20 mcg/kg/min 10 m L/hr sennosides-docusate sodium (SENOKOT-S) 8.6-50 mg 1 tablet 1 tablet, oral, Every 12 hours PRN, constipation, Starting on Sat01/14/25 at 1522 sodium chloride 0.9 % flush 10 mL 10 mL, intravenous, Every 12 hours, First dose on Sat01/14/25 at 1530, PICC line. Administer 10 mL per lumen; 10 mL total (for single lumen flush) Given 01/22/2025 3:30 AM EDT 10 mL Given 01/21/2025 3:30 PM EDT 10 mL Given 01/21/2025 3:30 AM EDT 10 mL sodium chloride 0.9 % flush 10 mL 10 mL, intravenous, As needed, line care, Starting on Sat01/14/25 at 1527, PICC line. Administer 10 mL to each lumen before and after each use. Administer 10 mL per lumen; 10 mL total (for single lumen flush) sodium chloride 0.9 % flush 10 mL 10 mL, intravenous, Every 12 hours, First dose on Sat01/22/25 at 1230, PICC line. Administer 10 mL per lumen; 10 mL total (for single lumen flush) sodium chloride 0.9 % flush 10 mL 10 mL, intravenous, As needed, line care, Starting on Sat01/22/25 at 1214, PICC line. Administer 10 mL to each lumen before and after each use. Administer 10 mL per lumen; 10 mL total (for single lumen flush) sodium chloride 0.9 % flush 20 mL 20 mL, intravenous, As needed, line care, Starting on Sat01/14/25 at 1527, PICC line. Administer 20 mL to each lumen after lab draws, blood infusion, and meds known to precipitate. Administer 20 mL per lumen; 20 mL total (for single lumen flush) sodium chloride 0.9 % flush 20 mL 20 mL, intravenous, As needed, line care, Starting on Sat01/22/25 at 1214, PICC line. Administer 20 mL to each lumen after lab draws, blood infusion, and meds known to precipitate. Administer 20 mL per lumen; 20 mL total (for single lumen flush) Given 01/22/2025 12:44 PM EDT 20 mL sodium chloride 0.9 % infusion 100 mL/hr, intravenous, Continuous, Starting on [place] 01/14/25 at 1530 Restarted 01/16/2025 7:08 AM EDT 100 mL/hr Restarted 01/16/2025 4:27 AM EDT 100 mL/hr Rate/Dose Verify 01/16/2025 2:07 AM EDT 100 mL/ hr sodium chloride 0.9 % infusion 3 mL/hr, intra-arterial, Continuous, Starting on [place] 01/14/25 at 2315, For 5 days New Bag 01/14/2025 11:10 PM EDT 3 mL/hr 3 mL/hr documented in this encounter Active and Recently Administered Medications Times are shown in EDT. Scheduled Medication Order 01/20/2025 01/21/2025 01/22/2025 acetaminophen (TYLENOL EXTRA STRENGTH) tablet 1,000 mg 1,000 mg, oral, Every 6 hours scheduled, First dose on Sat01/17/25 at 1200 0533 (Given - Provider: Luna Porter RN)1149 (Given - Provider: Reynaldo Velez RN)1937 (Given - Provider: Luna Porter RN) 0221 (Given - Provider: Luna Porter RN)0801 (Given - Provider: Reynaldo Velez RN)1145 (Given - Provider: Reynaldo Velez RN)2015 (Given - Provider: Luna Porter RN) 0213 (Given - Provider: Luna Porter RN)0800 (Not Given - Provider: Gi Raymond RN - Reason: Patient/family refused)1200 (Not Given - Provider: Celina Lynch RN - Reason: Patient/family refused) apixaban (ELIQUIS) tablet 5 mg 5 mg, oral, 2 times daily, First dose (after last modification) on 01/18/25 at 1700, Indication: Nonvalvular Atrial Fibrillation (NVAF), Indications: prevent thromboembolism in chronic atrial fibrillation 0857 (Given - Provider: Reynaldo Velez RN)2107 (Given - Provider: Luna Porter RN) 0801 (Given - Provider: Reynaldo Velez RN)2207 (Given - Provider: Luna Porter RN) 0837 (Given - Provider: Gi Raymond RN) chlorhexidine (PERIDEX) 0.12 % solution 15 mL 15 mL, mouth/throat, 2 times daily, First dose on Sat01/14/25 at 2100, Swish undiluted for 30 seconds, then spit. 0858 (Given - Provider: Reynaldo Velez RN)2107 (Given - Provider: Luna Porter RN) 1132 (Given - Provider: Reynaldo Velez RN)2208 (Given - Provider: Luna Porter RN) 0900 (Not Given - Provider: Gi Raymond RN - Reason: Patient/family refused) dilTIAZem CD (CARDIZEM CD) 24 hr capsule 180 mg 180 mg, oral, Daily, First dose on Sat01/20/25 at 0900, Hold for systolic less than 100 or heart rate less than 60 Look-alike/sound-alike medication - verify indication for use. Do not crush or chew. 0857 (Given - Provider: Reynaldo Velez RN) 0810 (Given - Provider: Reynaldo Velez RN) 0837 (Given - Provider: Gi Raymond RN) levalbuterol (XOPENEX) nebulizer solution 1.25 mg 1.25 mg, nebulization, Every 4 hours while awake, First dose on Sat01/20/25 at 1100, Ordered in place of albuterol due to: intolerance to albuterol, Implement INPATIENT/ED Bronchodilator Clinical Practice Guidelines? Yes 1001 (Canceled Entry - Provider: Edwina Feliz RCP)1100 (Canceled Entry - Provider: Edwina Feliz RCP)1458 (Given - Provider: Edwina Feliz RCP)1945 (Given - Provider: Andria Toure RCP) 0830 (Given - Provider: Muriel Darden RCP)1150 (Given - Provider: Muriel Darden RCP)1616 (Given - Provider: Muriel Darden RCP)2002 (Given - Provider: Jarrett Ortiz RCP) 0751 (Given - Provider: Muriel Darden RCP)1144 (Given - Provider: Muriel Darden RCP) melatonin (CIRCADIN) tablet 6 mg 6 mg, oral, Nightly, First dose on Sat01/19/25 at 0345 2205 (Given - Provider: Luna Porter RN) 2207 (Given - Provider: Luna Porter RN) metoprolol tartrate (LOPRESSOR) tablet 50 mg 50 mg, oral, 2 times daily, First dose on Sat01/17/25 at 1215, Hold for systolic less than 100 or heart rate less than 60 Look-alike/sound-alike medication - verify indication for use. 0857 (Given - Provider: Reynaldo Velez RN)2107 (Given - Provider: Luna Porter RN) 0810 (Given - Provider: Reynaldo Velez RN)2207 (Given - Provider: Luna Porter RN) 0836 (Given - Provider: Gi Raymond RN) metroNIDAZOLE (FLAGYL) tablet 500 mg (CANCELED) 500 mg, oral, Every 12 hours scheduled, First dose on Sat01/19/25 at 2100, Food-Drug Interaction Education Required Look-alike/sound-alike medication - verify indication for use Ethanol: Use of ethanol is contraindicated during therapy and for 3 days after therapy discontinuation, Indication: Intra-abdominal 0857 (Given - Provider: Reynaldo Velez RN) micafungin (MYCAMINE) 100 mg in sodium chloride 0.9 % 100 mL IVPB W/ADAPTER 100 mg, intravenous, at 100 mL/hr, Administer over 60 Minutes, Every 24 hours, First dose on Sat01/20/25 at 1000, For Vial-2-Bag: Attach bag and vial to adapter - Use immediately after activating; dissolve drug prior to administration., Approved Indication: Azole-resistant organism, Authorizing Service: ID consult has been placed, I acknowledge that an appropriate consult is REQUIRED to use this drug at [facility], [facility] and [facility] per [facility]-approved policy # MM 1.15: Yes 1032 (New Bag - Provider: Reynaldo Velez RN)1103 (Rate/Dose Verify - Provider: Reynaldo Velez RN)1132 (Stop Bag - Provider: Reynaldo Velez RN) 1143 (New Bag - Provider: Reynaldo Velez RN)1243 (Stop Bag - Provider: Reynaldo Velez RN) 1140 (New Bag - Provider: Gi Raymond RN)1240 (Due: Stop Bag - Provider: Gi Raymond, RN) piperacillin-tazobactam (ZOSYN) 3.375 g in sodium chloride 0.9 % 50 mL IVPB W/ADAPTER(Linked Group 1) 3.375 g, intravenous, at 12.5 mL/hr, Administer over 4 Hours, Every 8 hours, First dose on Sat01/20/25 at 1400, Dose adjusted per [facility] approved piperacillin-tazobactam policy. First dose of 3.375 gram to be 4 hours after 4.5 gram dose if frequency is every 8 hours or 8 hours after 4.5 gram dose if frequency is every 12 hours. For Vial-2-Bag: Attach bag and vial to adapter - Use immediately after activating; dissolve drug prior to administration., Indication: Nosocomial intra-abdominal 1511 (New Bag - Provider: Reynaldo Velez RN)1911 (Stop Bag - Provider: Luna Porter RN)2207 (New Bag - Provider: Luna Porter RN) 0207 (Stop Bag - Provider: Luna Porter RN)0538 (New Bag - Provider: Luna Porter RN)0938 (Stop Bag - Provider: Reynaldo Velez RN)1527 (New Bag - Provider: Reynaldo Velez RN)1927 (Stop Bag - Provider: Luna Porter RN)2212 (New Bag - Provider: Luna Porter RN) 0212 (Stop Bag - Provider: Luna Porter RN)0530 (New Bag - Provider: Luna Porter RN)0930 (Stop Bag - Provider: Gi Raymond, CHRISTOS) piperacillin-tazobactam (ZOSYN) 4.5 g in sodium chloride 0.9 % 50 mL IVPB W/ADAPTER (COMPLETED)(Linked Group 1) 4.5 g, intravenous, at 100 mL/hr, Administer over 30 Minutes, Once, On Sat01/20/25 at 1000, For 1 dose, Loading dose per [facility] approved piperacillin-tazobactam policy. First dose of 3.375 gram to be 4 hours after 4.5 gram dose if frequency is every 8 hours or 8 hours after 4.5 gram dose if frequency is every 12 hours. For Vial-2-Bag: Attach bag and vial to adapter - Use immediately after activating; dissolve drug prior to administration., Indication: Nosocomial intra-abdominal 1025 (New Bag - Provider: Reynaldo Velez RN)1055 (Stop Bag - Provider: Reynaldo Velez RN) sodium chloride 0.9 % flush 10 mL(Linked Group 2) 10 mL, intravenous, Every 12 hours, First dose on [place] 01/14/25 at 1530, PICC line. Administer 10 mL per lumen; 10 mL total (for single lumen flush) 0330 (Given - Provider: Luna Porter RN)1522 (Given - Provider: Reynaldo Velez RN) 0330 (Given - Provider: Luna Potrer RN)1530 (Given - Provider: Reynaldo Velez RN) 0330 (Given - Provider: Luna Porter RN) sodium chloride 0.9 % flush 10 mL(Linked Group 3) 10 mL, intravenous, Every 12 hours, First dose on Sat01/22/25 at 1230, PICC line. Administer 10 mL per lumen; 10 mL total (for single lumen flush) 1230 (Not Given - Provider: Gi Raymond RN - Reason: IV infusing) PRN Medication Order 01/20/2025 01/21/2025 01/22/2025 acetaminophen (TYLENOL EXTRA STRENGTH) tablet 500 mg 500 mg, oral, Every 6 hours PRN, mild pain - pain scale 1-3, headaches, temperature greater than 38 C, Starting on [place] 01/14/25 at 1522, [Warning: Total Acetaminophen not to exceed more than 4 grams (4000 mg) in 24 hours] alum-mag hydroxide-simeth (MAALOX) 200-200-20 mg/5 mL suspension 30 mL 30 mL, oral, 4 times daily after meals and at bedtime as needed, dyspepsia, Starting on [place] 01/14/25 at 1522, Look-alike/sound-alike medication - verify indication for use. Shake well., Indications: dyspepsia HYDROmorphone (PF) (DILAUDID) injection 0.5 mg 0.5 mg, intravenous, Every 3 hours PRN, severe pain - pain scale 7-10, breakthrough pain, Starting on Sat01/17/25 at 1030, If IV push, administer over over 2 to 3 minutes. Look-alike/sound-alike medication - verify indication for use. levalbuterol (XOPENEX) nebulizer solution 1.25 mg 1.25 mg, nebulization, Every 4 hours PRN, wheezing, Starting on 01/16/25 at 0916, Ordered in place of albuterol due to: arrhythmia, Implement INPATIENT/ED Bronchodilator Clinical Practice Guidelines? No 0955 (Given - Provider: Edwina Feliz RCP) magnesium sulfate IVPB 2000 mg/50 mL in iso-osmotic water (40 mg/mL premix) 2,000 mg, intravenous, at 25 mL/hr, Administer over 120 Minutes, As needed, Magnesium level 1.7-1.9, Starting on [place] 01/14/25 at 1522, Recheck magnesium level 4 hours after infusion complete. With each magnesium result continue the replacement orders as needed. 0538 (New Bag - Provider: Luna Porter RN)0738 (Stop Bag - Provider: Reynaldo Velez RN) 0536 (New Bag - Provider: Luna Porter RN)0736 (Stop Bag - Provider: Gi Raymond RN) magnesium sulfate IVPB 4000 mg/100 mL in iso-osmotic water (40 mg/mL premix) 4,000 mg, intravenous, at 25 mL/hr, Administer over 240 Minutes, As needed, Magnesium level 1.6 mg/dL or less, Starting on [place] 01/14/25 at 1522, Recheck magnesium level 4 hours after infusion complete. With each magnesium result continue the replacement orders as needed. metoprolol (LOPRESSOR) injection 2.5 mg 2.5 mg, intravenous, Every 6 hours PRN, high blood pressure, if HR > 120 and BP > 100 mmHg, Starting on Sat01/15/25 at 0112, Look-alike/sound-alike medication - verify indication for use. ondansetron (PF) (ZOFRAN) injection 4 mg 4 mg, intravenous, Every 4 hours PRN, nausea, vomiting, Starting on [place] 01/14/25 at 1522, Intravenous administration preferred to be given over 2-5 minutes. oxyCODONE (ROXICODONE) immediate release tablet 10 mg 10 mg, oral, Every 4 hours PRN, severe pain - pain scale 7-10, Starting on 01/17/25 at 1029, Look-alike/sound-alike medication - verify indication for use. Immediate release. oxyCODONE (ROXICODONE) immediate release tablet 5 mg 5 mg, oral, Every 4 hours PRN, moderate pain - pain scale 4-6, Starting on 01/17/25 at 1029, Look-alike/sound-alike medication - verify indication for use. Immediate release. potassium chloride (K-TAB,KLOR-CON) CR tablet 30-50 mEq(Linked Group 4) 30-50 mEq, oral, As needed, Potassium Supplementation, Starting on [place] 01/14/25 at 1522, Progress to oral potassium replacement when patient [...] greater=50 mEq. Do not crush or chew. potassium chloride (KAYCIEL) 20 mEq/15 mL solution 30-50 mEq(Linked Group 4) 30-50 mEq, oral, As needed, Potassium Supplementation, Starting on [place] 01/14/25 at 1522, Progress to oral potassium replacement when patient [...] policy and monitor potassium levels potassium chloride IVPB 10 mEq/100 mL in water (0.1 mEq/mL premix)(Linked Group 4) 10 mEq, intravenous, at 100 mL/hr, Administer over 60 Minutes, As needed, POTASSIUM REPLACEMENT, Starting on [place] 01/14/25 at 1522, IV if unable to use oral/enteral with [...] mEq over a minimum of 1 hour. sennosides-docusate sodium (SENOKOT-S) 8.6-50 mg 1 tablet 1 tablet, oral, Every 12 hours PRN, constipation, Starting on [place] 01/14/25 at 1522 sodium chloride 0.9 % flush 10 mL(Linked Group 2) 10 mL, intravenous, As needed, line care, Starting on [place] 01/14/25 at 1527, PICC line. Administer 10 mL to each lumen before and after each use. Administer 10 mL per lumen; 10 mL total (for single lumen flush) sodium chloride 0.9 % flush 10 mL(Linked Group 3) 10 mL, intravenous, As needed, line care, Starting on Sat01/22/25 at 1214, PICC line. Administer 10 mL to each lumen before and after each use. Administer 10 mL per lumen; 10 mL total (for single lumen flush) sodium chloride 0.9 % flush 20 mL(Linked Group 2) 20 mL, intravenous, As needed, line care, Starting on [place] 01/14/25 at 1527, PICC line. Administer 20 mL to each lumen after lab draws, blood infusion, and meds known to precipitate. Administer 20 mL per lumen; 20 mL total (for single lumen flush) sodium chloride 0.9 % flush 20 mL(Linked Group 3) 20 mL, intravenous, As needed, line care, Starting on Sat01/22/25 at 1214, PICC line. Administer 20 mL to each lumen after lab draws, blood infusion, and meds known to precipitate. Administer 20 mL per lumen; 20 mL total (for single lumen flush) 1244 (Given - Provid er: Celina Lynch RN) Linked Groups Order Group 1: piperacillin-tazobactam (ZOSYN) 4.5 g in sodium chloride 0.9 % 50 mL IVPB W/ADAPTER (COMPLETED)Jump to med 4.5 g, intravenous, at 100 mL/hr, Administer over 30 Minutes, Once, On Sat01/20/25 at 1000, For 1 dose, Loading dose per [facility] approved piperacillin-tazobactam policy. First dose of 3.375 gram to be 4 hours after 4.5 gram dose if frequency is every 8 hours or 8 hours after 4.5 gram dose if frequency is every 12 hours. For Vial-2-Bag: Attach bag and vial to adapter - Use immediately after activating; dissolve drug prior to administration., Indication: Nosocomial intra-abdominal Followed by piperacillin-tazobactam (ZOSYN) 3.375 g in sodium chloride 0.9 % 50 mL IVPB W/ADAPTERJump to med 3.375 g, intravenous, at 12.5 mL/hr, Administer over 4 Hours, Every 8 hours, First dose on Sat01/20/25 at 1400, Dose adjusted per [facility] approved piperacillin- tazobactam policy. First dose of 3.375 gram to be 4 hours after 4.5 gram dose if frequency is every 8 hours or 8 hours after 4.5 gram dose if frequency is every 12 hours. For Vial-2-Bag: Attach bag and vial to adapter - Use immediately after activating; dissolve drug prior to administration., Indication: Nosocomial intra-abdominal Group 2: Consult PICC nurse - PICC (COMPLETED) Reason for consult? Insert PICC, Indication: Duration of therapy 14 days or less, Difficult Access, Number of Lumen(s): 1 Lumen And sodium chloride 0.9 % flush 10 mLJump to med 10 mL, intravenous, Every 12 hours, First dose on [place] 01/14/25 at 1530, PICC line. Administer 10 mL per lumen; 10 mL total (for single lumen flush) And sodium chloride 0.9 % flush 10 mLJump to med 10 mL, intravenous, As needed, line care, Starting on Sat01/14/25 at 1527, PICC line. Administer 10 mL to each lumen before and after each use. Administer 10 mL per lumen; 10 mL total (for single lumen flush) And sodium chloride 0.9 % flush 20 mLJump to med 20 mL, intravenous, As needed, line care, Starting on [place] 01/14/25 at 1527, PICC line. Administer 20 mL to each lumen after lab draws, blood infusion, and meds known to precipitate. Administer 20 mL per lumen; 20 mL total (for single lumen flush) Group 3: Consult PICC nurse (CANCELED) Reason for consult? Insert PICC, Indication: Difficult Access, Duration of therapy greater than 14 days to months, Number of Lumen(s): 1 Lumen, Exchange triple- lumen PICC for a single-lumen And sodium chloride 0.9 % flush 10 mLJump to med 10 mL, intravenous, Every 12 hours, First dose on Sat01/22/25 at 1230, PICC line. Administer 10 mL per lumen; 10 mL total (for single lumen flush) And sodium chloride 0.9 % flush 10 mLJump to med 10 mL, intravenous, As needed, line care, Starting on Sat01/22/25 at 1214, PICC line. Administer 10 mL to each lumen before and after each use. Administer 10 mL per lumen; 10 mL total (for single lumen flush) And sodium chloride 0.9 % flush 20 mLJump to med 20 mL, intravenous, As needed, line care, Starting on Sat01/22/25 at 1214, PICC line. Administer 20 mL to each lumen after lab draws, blood infusion, and meds known to precipitate. Administer 20 mL per lumen; 20 mL total (for single lumen flush) Group 4: potassium chloride (K-TAB,KLOR-CON) CR tablet 30-50 mEqJump to med 30-50 mEq, oral, As needed, Potassium Supplementation, Starting on Sat01/14/25 at 1522, Progress to oral potassium replacement when patient [...] potassium chloride (KAYCIEL) 20 mEq/15 mL solution 30-50 mEqJump to med 30-50 mEq, oral, As needed, Potassium Supplementation, Starting on Sat01/14/25 at 1522, Progress to oral potassium replacement when patient [...] Minutes, As needed, POTASSIUM REPLACEMENT, Starting on [place] 01/14/25 at 1522, IV if unable to use oral/enteral with [...] documented as of this encounter Care Teams Boat Laborer Relationship Specialty Start Date End Date No Pcp, No Pcp MICHAEL [place] [address] PCP - General Family Medicine 11/24/18 documented as of this encounter
[2025-01-27 11:14] VITALS: BP 119/66; PULSE 89; TEMP 36.6; O2SAT 87; BMI 26.8
--- OUTSIDE RECORDS SUMMARY | 2025-01-27 11:24 | XMS_ITS | Encounter Summary ---
Author Organization [employer] Address [id number] [address] [place] [address] Care Team Providers Care Wall Steamer Name Role Phone No Pcp, No Pcp Primary Care Provider Unavailabl e Reason for Visit * Reason Onset Date Comments marinelli placement 01/14/2025 Encounter Details Date Type Department Care Team (Late st Contact Info) Description 01/14/2025 Telephone [facility] [address] [place] [phone] Nirali Deleon marinelli placement Social History Tobacco Use Types Packs/Day Years Used Date Smoking Tobacco: Never Smokeless Tobacco: Never Alcohol Use Standard Drinks/Week Comments No 0 (1 standard drink = 0.6 oz pur e alcohol) [facility] Utilities Answer Date Recorded In the past 12 months has e electric, gas, oil, or water company [...] on file documented as of this encounter Functional Status documented as of this encounter Miscellaneous Notes * Telephone Encounter - Nirali Deleon - 01/14/2025 4:41 PM EDT Contract: 195 [facility] 2012 RE Bowel surgerytoday and Marinelli placement * Telephone Encounter - Nirali Deleon - 01/14/2025 4:41 PM EDT Contract: [address] Marie and LM to call [facility] * Telephone Encounter - Yana Renteria - 01/14/2025 4:[address] Marie called back and completed call documented in this encounter Plan of Treatment Upcoming Encounters Date Type Department Care Team (Late st Contact Info) Description 02/11/2025 10:15 AM EDT Office Visit [facility] [address] [place] [phone] Kerrie Seals, PURCHASING EXPEDITOR-CITY PLANNER [address] [place] [address] 03/10/2025 2:30 PM EDT Office Visit [facility] [address] [place] [phone] Dar Gaines MD [address] [place] [address] documented as of this encounter Visit Diagnoses Not on filedocumented in this encounter Additional Health Concerns Assessment Noted Time PHQ-9 Depression Total Score: 0 04/15/20 17 1:00 PM EST documented as of this encounter Care Teams Wall Steamer Relationship Specialty Start Date End Date No Pcp, [place] [address] PCP - General Family Medicine 11/24/18 documented as of this encounter
--- OUTSIDE RECORDS SUMMARY | 2025-01-27 11:24 | XMS_ITS | Encounter Summary ---
Author Organization [employer] Address [facility] [id number] [address] [place] [address] Care Team Providers Care Religious Ritual Slaughterer Name Role Phone No Pcp, No Pcp Primary Care Provider Unavailabl e Reason for Visit * Reason Onset Date Comments NEW CONSULT FOR AFIB WITH RAPID RATING Encounter Details Date Type Department Care Team (Late st Contact Info) Description 01/12/2025 Telephone [facility] [address] [place] [phone] Yana Renteria NEW CONSULT FOR AFIB WITH RAPID RATING Social History Tobacco Use Types Packs/Day Years Used Date Smoking Tobacco: Never Smokeless Tobacco: Never Alcohol Use Standard Drinks/Week Comments No 0 (1 standard drink = 0.6 oz pur e alcohol) [facility] Utilities Answer Date Recorded In the [...] encounter Miscellaneous Notes * Telephone Encounter - Yana Renteria - 01/12/2025 7:44 PM EDT Contract: [facility] RE New for Afib with Rapid Rating * Telephone Encounter - Yana Renteria - 01/12/2025 7:44 PM EDT Secure chat and Routing sent documented in this encounter Plan of Treatment Upcoming Encounters Date Type Department Care Team (Late st Contact Info) Description 02/11/2025 10:15 AM EDT Office Visit [facility] [address] [place] [phone] Kerrie Seals, SPOOL CARRIER-ARCHITECTURAL ENGINEER [address] [place] [address] 03/10/2025 2:30 PM EDT Office Visit [facility] [address] [place] [phone] Dar Gaines MD [address] [place] [address] documented as of this encounter Goals Goal Patient Goal Type Associated Problems Recent Progress Patient-Stated? Author home General Yes Kerrie Acevedo, RN Note: Evaluation of progress towards goal: Will evaluate needs once patient is off ventilator documented as of this encounter Visit Diagnoses Not on filedocumented in this encounter Additional Health Concerns Assessment Noted Time PHQ-9 Depression Total Score: 0 04/15/20 17 1:00 PM EST documented as of this encounter Care Teams Religious Ritual Slaughterer Relationship Specialty Start Date End Date No Pcp, [place] [address] PCP - General Family Medicine 11/24/18 documented as of this encounter
--- OUTSIDE RECORDS SUMMARY | 2025-01-27 11:24 | XMS_ITS | Clinical Summary ---
Author Organization [facility] Address [address], [address] [place] [address] Care Team Providers Care Assistant Professor Of Physics Name Role Phone Jose David Sanchez MD Primary Care Provider [phone] Allergies No known active allergies Medications aspirin 81 MG chewable tablet Take 81 mg by mouth daily Active apixaban (ELIQUIS) 5 MG TABS tablet Take 1 tablet by mouth 2 times daily 60 tablet 3 7 Active atorvastatin (LIPITOR) 40 MG tablet Take 1 tablet by mouth nightly 30 tablet 3 7 Active metoprolol tartrate (LOPRESSOR) 50 MG tablet Take 0.5 tablets by mouth 2 times daily 60 tablet 3 7 Active Additional Information Patient taking differently: 50 mgOral 2 TIMES DAILY, Reported on 09/05/2016 Active Problems Problem Noted Date Diagnosed Date Paroxysmal A-fib 07/18/2016 CHF (congestive heart failure) 07/18/2016 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 He was treated with tPA and his symptoms resolved during transfer to the neurology service at [facility]. A followup CT brain scan and CTA of the head and neck were normal. A MRI of the brain revealed acute infarction invloving the cortical painter matter of the left frontal and parietal lobes. An echocardiogram was normal. Laboratories including a chemistry profile, lipid profile and CBC were unremarkable. He was initiated on anticoagulation with Eliquis and discharged home recovered. Expressive aphasia Tissue plasminogen activator (t-PA) administered at other facility within 24 hours prior to current admission Overview (11/03/2018): Updating Deprecated Diagnoses Replacing deprecated diagnoses Family History Medical History Relation Name Comments Heart Disease Father Heart Disease Sister Relation Name Status Comments Father Sister Social History Tobacco Use Types Packs/Day Years Used Date Smoking Tobacco: Former Cigarettes Smokeless Tobacco: Never Alcohol Use Standard Drinks/Week Comments No 0 (1 standard drink = 0.6 oz pur e alcohol) Sex and Gender Information Value Date Recorded Sex Assigned at Not on file Legal Sex Male 3:51 PM EST Gender Identity Not on file Sexual Orientation Not on file Last Filed Vital Signs Vital Sign Reading Time Taken Comments Blood Pressure 131/79 09/05/2016 9:44 AM EDT Pulse 70 09/05/2016 9:44 AM EDT Temperature 36.7 C (98.1 F) 07/20/2016 11:57 AM EST Respiratory Rate 21 07/20/2016 11:57 AM EST Oxygen Saturation 93% 07/20/2016 11:57 AM EST Inhaled Oxygen Concentration - - Weight 77.7 kg (171 lb 3.2 oz) 09/05/2016 9:44 A M EDT Height 180.3 cm (5' 11 ) 09/05/2016 9:44 AM EDT Body Mass Index 23.88 09/05/2016 9:44 AM EDT Plan of Treatment Not on file [place] [place] [address] MEDICARE [facility] MEDICARE Advance Directives * Full Code (Latest Code Status on File) Date Activated Date Inactivated Comments 07/18/2016 6:25 PM 07/20/2016 6:34 PM Care Teams Assistant Professor Of Physics Relationship Specialty Start Date End Date Jose David Sanchez MD [address] [place] [address] PCP - General Family Medicine 09/05/16
--- OUTSIDE RECORDS SUMMARY | 2025-01-27 11:24 | XMS_ITS | Encounter Summary ---
Author Organization [employer] Address [facility] [id number] [address] [place] [address] Care Team Providers Care Shipping Agent Name Role Phone No Pcp, No Pcp Primary Care Provider Unavailabl e Reason for Visit * Reason Onset Date Comments afib rvr 01/13/2025 Encounter Details Date Type Department Care Team (Late st Contact Info) Description 01/13/2025 Telephone [facility] [address] [place] [phone] Roula Coleman afib rvr Social History Tobacco Use Types Packs/Day Years Used Date Smoking Tobacco: Never Smokeless Tobacco: Never Alcohol Use Standard Drinks/Week Comments No 0 (1 standard drink = 0.6 oz pur e alcohol) [facility] Utilities Answer Date Recorded In the [...] to buy more. Patient unable to answer 01/14/2025 Within the past 12 months th e food we bought just didn't last and we didn't have money to get more. Patient unable to answer 01/14/2025 Purpose - Life Answer Date Recorded Purpose and direction in life Unknown Sex and Gender Information Value Date Recorded Sex Assigned at Not on file Legal Sex Male 11:30 AM EDT Gender Identity Not on file Sexual Orientation Not on file documented as of this encounter Miscellaneous Notes * Telephone Encounter - Roula Coleman - 01/13/2025 1:52 AM EDT Contract: [facility] [phone] Epi cunningham afib rvr; no call back needed, AM consult requested Secure chat sent documented in this encounter Plan of Treatment Upcoming Encounters Date Type Department Care Team (Late st Contact Info) Description 02/11/2025 10:15 AM EDT Office Visit [facility] [address] [place] [phone] Kerrie Seals, HUMAN SERVICE SPECIALIST-[facility] [address] [address] 03/10/2025 2:30 PM EDT Office Visit [facility] [address] [place] [phone] Dar Gaines MD [address] [place] [address] documented as of this encounter Visit Diagnoses Not on filedocumented in this encounter Additional Health Concerns Assessment Noted Time PHQ-9 Depression Total Score: 0 04/15/20 17 1:00 PM EST documented as of this encounter Care Teams Shipping Agent Relationship Specialty Start Date End Date No Pcp, [place] [address] PCP - General Family Medicine 11/24/18 documented as of this encounter
--- OUTSIDE RECORDS SUMMARY | 2025-01-27 11:26 | XMS_ITS | Encounter Summary ---
Author Organization [employer] Address [id number] [address] [place] [address] Care Team Providers Care Personnel Manager Name Role Phone No Pcp, No Pcp Primary Care Provider Unavailabl e Reason for Visit * Reason Onset Date Comments orders 01/13/2025 Encounter Details Date Type Department Care Team (Late st Contact Info) Description 01/13/2025 Telephone [facility] [address] [place] [phone] Nirali Deleon orders Social History Tobacco Use Types Packs/Day Years Used Date Smoking Tobacco: Never Smokeless Tobacco: Never Alcohol Use Standard Drinks/Week Comments No 0 (1 standard drink = 0.6 oz pur e alcohol) [facility] Utilities Answer Date Recorded In the past [...] * Telephone Encounter - Nirali Deleon - 01/13/2025 7:11 AM EDT Contract: [facility] RE New orders * Telephone Encounter - Nirali Deleon - 01/13/2025 7:11 AM EDT Contract: [facility] Sent Secure chat to Dr Francis documented in this encounter Plan of Treatment Upcoming Encounters Date Type Department Care Team (Late st Contact Info) Description 02/11/2025 10:15 AM EDT Office Visit [facility] [address] [place] [phone] Kerrie Seals, NURSE EDUCATOR-MARINE ELECTRONICS TECHNICIAN [address] [place] [address] 03/10/2025 2:30 PM EDT Office Visit [facility] [address] [place] [phone] Dar Gaines MD [address] [place], [place] [phone] documented as of this encounter Visit Diagnoses Not on filedocumented in this encounter Additional Health Concerns Assessment Noted Time PHQ-9 Depression Total Score: 0 04/15/20 17 1:00 PM EST documented as of this encounter Care Teams Personnel Manager Relationship Specialty Start Date End Date No Pcp, [place] [address] PCP - General Family Medicine 11/24/18 documented as of this encounter
--- OUTSIDE RECORDS SUMMARY | 2025-01-27 11:26 | XMS_ITS | Encounter Summary ---
Author Organization [facility] Address [id number] [address] [place] [address] Care Team Providers Care Laboratory Courier Name Role Phone No Pcp, No Pcp Primary Care Provider Unavailabl e Encounter Details Date Type Department Care Team (Late st Contact Info) Description 01/22/2025 Telephone [facility] [address] [facility] [address] [phone] [place], [place] Social History Tobacco Use Types Packs/Day Years Used Date Smoking Tobacco: Never Smokeless Tobacco: Never Alcohol Use Standard Drinks/Week Comments No 0 (1 standard drink = 0.6 oz pur e alcohol) [facility] Utilities Answer Date Recorded In the past [...] encounter Miscellaneous Notes * Telephone Encounter - [place] RN - 01/22/2025 2:33 PM EDT Per [facility]'s orders pt will need an appt in 4-6 wks for hospital f/u. Pt being d/c'd home from [facility]. Above routed to Scheduling to call pt to arrange for the appt.-[facility] documented in this encounter Plan of Treatment Upcoming Encounters Date Type Department Care Team (Late st Contact Info) Description 02/11/2025 10:15 AM EDT Office Visit [facility] [address] [place] [phone] Kerrie Seals, WEED CUTTER[facility] [address] [place] [address] 03/10/2025 2:30 PM EDT Office Visit [facility] [address] [place] [address] Dar Gaines MD [address] [place] [address] documented as of this encounter Goals Goal Patient Goal Type Associated Problems Recent Progress Patient-Stated? Author home General Yes Kerrie Acevedo, [place] Note: Evaluation of progress towards goal: Will evaluate needs once patient is off ventilator documented as of this encounter Visit Diagnoses Not on filedocumented in this encounter Additional Health Concerns Assessment Noted Time PHQ-9 Depression Total Score: 0 04/15/20 17 1:00 PM EST documented as of this encounter Care Teams Laboratory Courier Relationship Specialty Start Date End Date No Pcp, [place] [address] PCP - General Family Medicine 11/24/18 documented as of this encounter
--- OUTSIDE RECORDS SUMMARY | 2025-01-27 11:27 | XMS_ITS | Encounter Summary ---
Author Organization [employer] Address [facility] [id number] [address] [place] [address] Care Team Providers Care Manufacturing Maintenance Manager Name Role Phone No Pcp, No Pcp Primary Care Provider Unavailabl e Encounter Details Date Type Department Care Team (Late st Contact Info) Description 01/14/2025 Telephone [facility] [address] [place] [phone] Radha Mays CMA Social History Tobacco Use Types Packs/Day Years Used Date Smoking Tobacco: Never Smokeless Tobacco: Never Alcohol Use Standard Drinks/Week Comments No 0 (1 standard drink = 0.6 oz pur e alcohol) [facility] Utilities Answer Date Recorded In [...] encounter Miscellaneous Notes * Telephone Encounter - Radha Mays CMA - 01/14/2025 4:07 PM EDT Caller: ARETHA Caller phone # [phone] Calling from /Facility : [facility] ICU Provider requesting consult: Pt diagnosis TRAMATIC CATHETER INSERTION Pt room # Current or New pt? NEW PGUS Dr (if est pt at pgus) fisher scallop Dr SUN --IF calling from [facility]--give Urology Resident pager # [phone] documented in this encounter Plan of Treatment Upcoming Encounters Date Type Department Care Team (Late st Contact Info) Description 02/11/2025 10:15 AM EDT Office Visit [facility] [address] [place] [phone] Kerrie Seals, PRINTING ASSISTANT-THERMOGRAPH OPERATOR [address] [place] [address] 03/10/2025 2:30 PM EDT Office Visit [facility] [address] [place] [phone] Dar Gaines MD [address] [place] [address] documented as of this encounter Goals Goal Patient Goal Type Associated Problems Recent Progress Patient-Stated? Author home General Yes Kerrie cAevedo, RN Note: Evaluation of progress towards goal: Will evaluate needs once patient is off ventilator documented as of this encounter Visit Diagnoses Not on filedocumented in this encounter Additional Health Concerns Assessment Noted Time PHQ-9 Depression Total Score: 0 04/15/20 17 1:00 PM EST documented as of this encounter Care Teams Manufacturing Maintenance Manager Relationship Specialty Start Date End Date No Pcp, [place] [address] PCP - General Family Medicine 11/24/18 documented as of this encounter
--- OUTSIDE RECORDS SUMMARY | 2025-01-27 11:27 | XMS_ITS | Encounter Summary ---
Author Organization [employer] Address [facility] [id number] [address] [place] [address] Care Team Providers Care Payroll Human Resources Assistant Name Role Phone No Pcp, No Pcp Primary Care Provider Unavailabl e Encounter Details Date Type Department Care Team (Latest Contact Info) Description 01/14/2025 Travel Social History Tobacco Use Types Packs/Day Years Used Date Smoking Tobacco: Never Smokeless Tobacco: Never Alcohol Use Standard Drinks/Week Comments No 0 (1 standard drink = 0.6 oz pur e alcohol) [facility] Utilities Answer Date Recorded In the [...] Functional Status documented as of this encounter Plan of Treatment Upcoming Encounters Date Type Department Care Team (Late st Contact Info) Description 02/11/2025 10:15 AM EDT Office Visit [facility] [address] [place] [phone] Kerrie Seals APRN-SURFBOARD DESIGNER [address] [place] [address] 03/10/2025 2:30 PM EDT Office Visit [facility] [address] [place] [phone] Dar Gaines MD [address] [place], [place] [phone] documented as of this encounter Visit Diagnoses Not on filedocumented in this encounter Additional Health Concerns Assessment Noted Time PHQ-9 Depression Total Score: 0 04/15/20 17 1:00 PM EST documented as of this encounter Care Teams Payroll Human Resources Assistant Relationship Specialty Start Date End Date No Pcp, [place] [address] PCP - General Family Medicine 11/24/18 documented as of this encounter
--- OUTSIDE RECORDS SUMMARY | 2025-01-27 11:27 | XMS_ITS | Encounter Summary ---
[facility] Address [facility] [id number] [address] [place] [address] Care Team Providers Care B Operator Name Role Phone No Pcp, No Pcp Primary Care Provider Unavailabl e Encounter Details Date Type Department Care Team (Late st Contact Info) Description 03/11/2023 Orders Only [facility] [address] [facility] [address] [place] [phone] Brittney Mike, NIGEL Social History Tobacco Use Types Packs/Day Years Used Date Smoking Tobacco: Never Smokeless Tobacco: Never Alcohol Use Standard Drinks/Week Comments No 0 (1 standard drink = 0.6 oz pur e alcohol) Childcare Answer Date Recorded Childcare Unknown 11/03/2018 Employment Answer Date Recorded Employment Unknown 11/03/2018 Purpose - Life Answer Date Recorded Purpose and direction in life Unknown Sex and Gender Information Value Date Recorded Sex Assigned at Not on file Legal Sex Male 11:30 AM EDT Gender Identity Not on file Sexual Orientation Not on file documented as of this encounter Plan of Treatment Upcoming Encounters Date Type Department Care Team (Late st Contact Info) Description 02/11/2025 10:15 AM EDT Office Visit [facility] [address] [place] [phone] Kerrie Seals, NEW CLIENT BANKING SERVICES CLERK-VENEER PATCHER [address] [place] [address] 03/10/2025 2:30 PM EDT Office Visit [facility] [address] [place] [phone] Dar Gaines MD [address] [place], [place] [phone] documented as of this encounter Visit Diagnoses Not on filedocumented in this encounter Additional Health Concerns Assessment Noted Time PHQ-9 Depression Total Score: 0 04/15/20 17 1:00 PM EST documented as of this encounter Care Teams B Operator Relationship Specialty Start Date End Date No Pcp, [place] [address] PCP - General Family Medicine 11/24/18 documented as of this encounter
--- OUTSIDE RECORDS SUMMARY | 2025-01-27 11:27 | XMS_ITS | Encounter Summary ---
Author Organization [employer] Address [facility] [id number] [address] [place] [address] Care Team Providers Care Operations Administrator Name Role Phone No Pcp, No Pcp Primary Care Provider Unavailabl e Encounter Details Date Type Department Care Team (Late st Contact Info) Description 08/31/2019 Telephone [facility] [address] [place] [phone] Marivel Kent, CHRISTOS Social History Tobacco Use Types Packs/Day Years Used Date Smoking Tobacco: Never Smokeless Tobacco: Never Alcohol Use Standard Drinks/Week Comments No 0 (1 standard drink = 0.6 oz pur e alcohol) Childcare Answer Date Recorded Childcare Unknown 11/03/2018 Employment Answer Date Recorded Employment Unknown 11/03/2018 Sex and Gender Information Value Date Recorded Sex Assigned at Not on file Legal Sex Male 11:30 AM EDT Gender Identity Not on file Sexual Orientation Not on file documented as of this encounter Plan of Treatment Upcoming Encounters Date Type Department Care Team (Late Contact Info) Description 02/11/2025 10:15 AM EDT Office Visit [facility] [address] [place] [phone] Kerrie Seals, PIPE JEEPER-CARTRIDGE GAUGER [address] [place] [address] 03/10/2025 2:30 PM EDT Office Visit [facility] [address] [place] [phone] Dar Gaines MD [address] [place] [address] documented as of this encounter Visit Diagnoses Not on filedocumented in this encounter Additional Health Concerns Assessment Noted Time PHQ-9 Depression Total Score: 0 04/15/20 17 1:00 PM EST documented as of this encounter Care Teams Operations Administrator Relationship Specialty Start Date End Date No Pcp, [place] [address] PCP - General Family Medicine 11/24/18 documented as of this encounter
[2025-01-27 11:35] LABS: Hematocrit 34.2 % (42.0-54.0); Hemoglobin 10.9 g/dL (14.0-18.0); Mean Corpuscular HGB Conc 31.9 g/dL (29.9-35.2); Mean Corpuscular Hemoglobin 31.8 pg (25.9-34.0); Mean Corpuscular Volume 99.7 fL (80.0-94.0); Platelet Count 413 10^3/uL (150-450); Red Blood Count 3.43 10^6/uL (4.70-6.10); White Blood Count 9.1 10^3/uL (4.0-11.0)
[2025-01-27 11:37] LABS: Glucose Urine UA NEGATIVE (NEGATIVE)
[2025-01-27 11:49] LABS: Anion Gap 6.2; Blood Urea Nitrogen 12.0 mg/dL (7.0-18.0); Calcium 8.8 mg/dL (8.5-10.1); Carbon Dioxide 34.5 mmol/L (21.0-32.0); Chloride 102 mmol/L (98-107); Estimated GFR (African America >60 (>=60 mL/min/1.73m^2); Estimated GFR (Non-African Ame >60 (>=60 mL/min/1.73m^2); Glucose 110 mg/dL (74-106); Potassium 4.7 mmol/L (3.5-5.1); Sodium 138 mmol/L (136-145)
[2025-01-27 11:52] LABS: Cast Seen? NONE SEEN #/LPF (NONE SEEN); Crystals Seen? None Seen #/HPF (None Seen); Urine Culture Indicated NO
[2025-01-27 12:47] VITALS: PULSE 85; O2SAT 100
--- NOTE | 2025-01-27 14:02 | ED.GENADUL1 ---
HPI HPI - General Adult General Chief complaint: Urogenital-Male Stated complaint: BLEEDING Time Seen by Provider: 01/27/25 11:12 Source: patient and medical record Mode of arrival: ambulance Limitations: no limitations History of Present Illness HPI narrative: Patient is a 74-year-old male presenting from the [facility] for concerns of hematuria. Patient is approximately 2 weeks s/p exploratory laparotomy with partial colectomy secondary to incarcerated hernia. The patient was having urinary retention postoperatively, and was discharged with a Blackwell catheter. The patient is doing well since the discharge. However, jail staff noticed blood clots in the patient's Blackwell catheter, and sent to the ED for evaluation. The patient is on Eliquis. Of the blood in the Blackwell, the patient is asymptomatic. He denies any abdominal pain, flank pain, fevers, chills, nausea, or vomiting. He has no chest pain or shortness of breath. He is currently asymptomatic. He is currently on Zosyn. Related Data Allergies Allergy/AdvReac Type Severity Reaction Status Date / Time No Known Drug Allergies Allergy Verified 01/27/25 11:19 Opioid HPI Opioid Management Most Recent Opioid Data: Last Pain Scale 8 Today, 11:40 Review of Systems ROS Status of ROS 10 or more systems reviewed and unremarkable except as noted in history and below PFSH PFSH Social History Little interest or pleasure in doing things: not at all Feeling down, depressed, or hopeless: not at all Exam Narrative Exam Narrative: CONSTITUTIONAL: Well-appearing, answering questions and following commands appropriately SKIN: Was warm and dry. EYES: Sclerae white. No conjunctival pallor. EARS, NOSE, THROAT: Moist oral mucosa. RESPIRATORY: Clear to auscultation bilaterally, no wheezes, crackles, or stridor, no use of accessory muscles CARDIOVASCULAR: Normal rate and regular rhythm. There is no S3, S4, murmur, rub. GASTROINTESTINAL: Mild tenderness to palpation throughout the abdomen. Colostomy is productive of loose brown stool. Surgical incision sites are clean/dry/intact. No rebound tenderness or guarding. The Blackwell catheter is draining gross bright red blood. MUSCULOSKELETAL: No peripheral edema. NEUROLOGIC: Patient is awake and alert. Facies were symmetrical. Constitutional Vital Signs, click to edit/add: Last Vital Signs Temp 97.8 F 01/27/25 11:14 Pulse 85 01/27/25 12:47 Resp 14 01/27/25 12:47 BP 119/66 01/27/25 11:14 Pulse Ox 100 01/27/25 12:47 O2 Del Method Room Air 01/27/25 11:14 O2 Flow Rate 4 01/27/25 12:47 Course Vital Signs Vital signs: Vital Signs Temperature 97.8 F 01/27/25 11:14 Pulse Rate 89 01/27/25 11:14 Respiratory Rate 14 01/27/25 11:14 Blood Pressure 119/66 01/27/25 11:14 Pulse Oximetry 87 L 01/27/25 11:14 Oxygen Delivery Method Room Air 01/27/25 11:14 Temperature 97.8 F 01/27/25 11:14 Pulse Rate 85 01/27/25 12:47 Respiratory Rate 14 01/27/25 12:47 Blood Pressure 119/66 01/27/25 11:14 Pulse Oximetry 100 01/27/25 12:47 Oxygen Delivery Method Room Air 01/27/25 11:14 Oxygen Delivery Flow Rate 4 01/27/25 12:47 Medical Decision Making MDM Narrative Medical decision making narrative: Patient is a 74-year-old male presenting to the emergency department from [facility] for concerns of hematuria in the Blackwell catheter. Of note, he is approximately 2 weeks s/p exploratory laparotomy with partial colectomy secondary to incarcerated hernia. Vital signs on arrival are within normal limits. He is afebrile and hemodynamically stable. Examination as noted above. My clinical impression is that the patient has hematuria in the Blackwell catheter secondary to local trauma, exacerbated by the fact that he is on Eliquis. Hypertension etiology include hemorrhagic cystitis, anemia, or other electrolyte/metabolic derangement. IV was established and laboratory studies were obtained. The Blackwell catheter was replaced with a three-way Blackwell. The bladder was manually irrigated, and one large blood clot was evacuated. The bladder was then manually irrigated until urine was only mildly pink-tinged. Urinalysis was sent. Laboratory studies were unremarkable. No significant electrolyte or metabolic derangement. No evidence of acute kidney injury. He is mildly anemic, however this is to be expected given his recent surgery. No leukocytosis. Urinalysis was positive for blood, but negative for acute infection. I do believe the patient is stable for discharge at this time. Patient's presentation is most likely consistent with hematuria related to Blackwell catheter placement/anticoagulation use. He has no evidence of obstructive uropathy or bladder outlet obstruction. His new Blackwell catheter is draining without difficulty. They were instructed to follow up with his surgeon for further postoperative care. Return precautions were given including any new or worsening symptoms. Patient understands and agrees to the plan. FINAL IMPRESSION: #Acute hematuria DISPOSITION: Discharged to [facility] CONDITION: Good Medical Records Medical records reviewed: Yes I reviewed the patient's medical records Lab Data Lab results reviewed: Yes I reviewed the patient's lab results Labs: Lab Results 01/27/25 01/27/25 Range/Units 11:15 11:25 WBC 9.1 (4.0-11.0) 10^3/uL RBC 3.43 L (4.70-6.10) 10^6/uL Hgb 10.9 L (14.0-18.0) g/dL Hct 34.2 L (42.0-54.0) % MCV 99.7 H (80.0-94.0) fL MCH 31.8 (25.9-34.0) pg MCHC 31.9 (29.9-35.2) g/dL RDW 14.7 (11.0-15.0) % Plt Count 413 (150-450) 10^3/uL MPV 9.2 L (9.5-13.5) fL Sodium 138 (136-145) mmol/L Potassium 4.7 (3.5-5.1) mmol/L Chloride 102 (98-107) mmol/L Carbon Dioxide 34.5 H (21.0-32.0) mmol/L Anion Gap 6.2 BUN 12.0 (7.0-18.0) mg/dL Creatinine 0.95 (0.70-1.30) mg/dL Est GFR ( Amer) >60 (>=60 mL/min/1.73m^2) Est GFR (Non-Af Amer) >60 (>=60 mL/min/1.73m^2) BUN/Creatinine Ratio 12.6 Glucose 110 H (74-106) mg/dL Calcium 8.8 (8.5-10.1) mg/dL Urine Color Red A (YELLOW) Urine Clarity Sl cloudy (CLEAR) Urine pH 7.5 (5.0-9.0) Ur Specific [place] 1.020 (1.005-1.025) Urine Protein 100 A (NEG/TRACE) mg/dL Urine Glucose (UA) Negative (NEGATIVE) mg/dL Urine Ketones Negative (NEGATIVE) mg/dL Urine Occult Blood Large A (NEGATIVE) Urine Nitrite Negative (NEGATIVE) Urine Bilirubin Negative (NEGATIVE) Urine Urobilinogen 0.2 (0.2-1.0) EU/dL Ur Leukocyte Esterase Trace A (NEGATIVE) Urine RBC 75-100 A (0-2) #/HPF Urine WBC 0-2 A (NONE SEEN) #/HPF Ur Squamous Epith Cells Rare (NONE/RARE) #/LPF Urine Crystals None seen (None Seen) #/HPF Urine Bacteria Trace A (NONE SEEN) #/HPF Urine Casts None seen (NONE SEEN) #/LPF Urine Mucus None seen (NONE SEEN) Ur Culture Indicated? No Discharge Plan Discharge Chief Complaint: Urogenital-Male Clinical Impression: Hematuria Qualifiers: Hematuria type: gross Qualified Code(s): R31.0 - Gross hematuria Patient Disposition: Home, Self-Care Time of Disposition Decision: 12:30 Condition: Good Mode of Transportation: Private Vehicle Print Language: Slovenian Instructions: Hematuria (ED) Referrals: NICOLE JAMES DO [Primary Care Provider, Family Practice] - 1 week Discharge Date/Time: 01/27/25 13:08
== END 2025-01-27 13:08 | disposition home or self-care (01) ==
PROVIDERS: Emergency Provider Student in an Organized Health Care Education/Training Program; PCP Family Medicine
DX: R31.0 Gross hematuria (principal)
CPT/HCPCS: 36415; 36592; 80048; 81001; 85027; 99283